=== PATIENT | female | born 1985 | race Caucasian/White ===

== ENCOUNTER 2022-07-04 07:54 | Emergency (ER) | payer MEDICAID, SELFPAY ==
[2022-07-04 07:58] VITALS: BP 132/91; PULSE 116; RESP 17; TEMP 36.2; O2SAT 98; BMI 44.1
[2022-07-04] MEDS: Acetaminophen 325 MG Tablet 650 MG PO (09:06)
[2022-07-04] MEDS: Ondansetron ODT 4 MG Tablet PO (09:07)
[2022-07-04] MEDS: Ibuprofen 600 MG Tablet PO (09:07)
[2022-07-04] MEDS: Amox/Clavulanate 875 MG Tablet PO (10:13)
[2022-07-04] MEDS: dexAMETHasone 10 MG/ML Vial PO.IVFORM (10:13)
--- NOTE | 2022-07-04 10:53 | EDS_ITS ---
HPI History of Present Illness Chief Complaint: Sore Throat Informant: patient Narrative Narrative: Patient is a 37-year-old female with history of fibromyalgia as well as diabetes mellitus (not on insulin) presenting with a couple days of increased fatigue, throat pain, hoarseness and fever. Patient has associated nausea but no vomiting or diarrhea. She denies any sick contacts. She has had a cough with thick sputum that has been nonproductive. She states it started 3 days ago with a sore throat. Has not taken anything for symptoms today. Has no other complaints at this time. Notes that she does have a history of strep throat. Denies any rash or skin changes. Denies any urinary symptoms. 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 Type 2 diabetes mellitus with hyperglycemia Vitamin D deficiency, unspecified Home Medications amoxicillin 875 mg-potassium clavulanate 125 mg tablet 1 tab PO BID #14 tabs 07/04/22 [Rx Last Taken Unknown] bupropion HCl 300 mg 24 hr tablet, extended release (Wellbutrin XL) 300 mg PO DAILY 07/04/22 [History Last Taken Unknown] canagliflozin 300 mg tablet (Invokana) 300 mg PO DAILY 07/04/22 [History Last Taken Unknown] duloxetine 60 mg capsule,delayed release (Cymbalta) 60 mg PO DAILY 07/04/22 [History Last Taken Unknown] ergocalciferol (vitamin D2) 1,250 mcg (50,000 unit) capsule (Vitamin D2) 1,250 mcg PO QWEEK 07/04/22 [History Last Taken Unknown] gabapentin 400 mg capsule 400 mg PO BID 07/04/22 [History Last Taken Unknown] guaifenesin 600 mg tablet, extended release 12 hr (Mucinex) 600 mg PO BID 07/04/22 [History Last Taken Unknown] hydroxyzine HCl 10 mg tablet 10 mg PO TID PRN Anxiety 07/04/22 [History Last Taken Unknown] ibuprofen 600 mg tablet 600 mg PO Q6H PRN PRN fever or pain #20 tabs 07/04/22 [Rx Last Taken Unknown] lisinopril 40 mg tablet 40 mg PO DAILY 07/04/22 [History Last Taken Unknown] metformin 1,000 mg tablet 1,000 mg PO BID 07/04/22 [History Last Taken Unknown] metoprolol succinate 100 mg capsule sprinkle, ext. release 24 hr 100 mg PO DAILY 07/04/22 [History Last Taken Unknown] Allergy/AdvReac Type Severity Reaction Status Date / Time acetaminophen [From Percocet] Allergy Hives Verified 07/04/22 07:57 Dihydroaminopryidine Allergy Rash Verified 07/04/22 07:57 Antibiotics hydrocodone Allergy Hives Verified 07/04/22 07:57 oxycodone [From Percocet] Allergy Hives Verified 07/04/22 07:57 Sulfa (Sulfonamide Allergy Hives Verified 07/04/22 07:57 Antibiotics) sulfamethoxazole Allergy Hives Verified 07/04/22 07:57 [From Bactrim] trimethoprim [From Bactrim] Allergy Hives Verified 07/04/22 07:57 Social History Smoking Status: Never smoker ROS ROS ED Constitutional Constitutional ED: Reports chills and fever(s) Eyes Eyes: Denies change in vision ENT ENT ED: Reports sore throat; Denies ear pain or rhinorrhea Cardiovascular Cardiovascular: Denies chest pain or palpitations Respiratory/Chest Respiratory/Chest: Reports cough; Denies dyspnea or dyspnea on exertion Gastrointestinal Gastrointestinal: Reports nausea; Denies abdominal pain, constipation, diarrhea or vomiting Musculoskeletal Musculoskeletal: Reports myalgias; Denies arthralgias Integumentary Denies rash Neurologic Neurologic: Denies headache(s) or weakness Psychiatric Psychiatric: Denies anxiety EXAM Physical Exam Const Vital Signs: 07/04/22 07:58 Temperature 97.2 F L Temperature Source Temporal Pulse Rate 116 H Respiratory Rate 17 Blood Pressure 132/91 H Blood Pressure Mean 104 Pulse Ox 98 Oxygen Delivery Method Room Air Positive well nourished, well developed and obese General Appearance ED: well developed and NAD Nutritional Appearance: obese HEENT Reports moist mucous membranes HEENT Narrative: Oral pharyngeal injection. Uvula is midline. No tonsillar exudate or significant edema appreciated. Increased pressure with slight retraction of the left panic membrane. No air-fluid levels appreciated on bilateral TMs. No erythema of the bilateral TMs. Eyes PERRL and EOMs intact bilaterally Neck supple and no JVD Neck Narrative: Some mild tender lymphadenopathy of the right anterior superior cervical chain Chest Wall inspection of chest normal Resp normal respiratory effort Resp Narrative: Scattered rhonchi. Breath sounds throughout. No respiratory distress. Cardio regular rate and no murmurs GI normal to inspection, nondistended, normoactive bowel sounds, non-tender and non-distended Extremity normal to inspection Neuro oriented x3 and CN's II-XII intact bilaterally Motor Exam: Negative for general weakness Psych mental status grossly normal Skin no rashes or lesions noted and no wounds MDM MDM MDM Narrative Medical decision making narrative: Patient evaluated for 3 days of sore throat, generalized malaise, myalgias, cough and nausea. Her has some mild hoarseness of her voice. She has had a fever at home but is afebrile here. Patient appears uncomfortable but no acute distress. Differential includes viral syndrome versus strep pharyngitis. Strep swab is positive. Patient is treated with a dose of Decadron after discussion about management of her glucose with steroids. COVID swab is negative. She does have some scattered rhonchi however her breath sounds are equal throughout and I do not suspect pneumonia. Her respiratory rate is normal and her O2 saturations 98% on room air. I do not think a chest x-ray is indicated at this time. Patient given first dose of antibiotics in the emergency room. She is also given ibuprofen and Tylenol for symptom control the emergency room. Discharged home to follow-up with primary care doctor. Counseled on return precautions. She verbalizes agreement understand with this plan. Discharge Plan Triage Chief Complaint: Sore Throat ED Provider: Mague Navarro Dx/Rx/DC Orders Clinical Impression: Acute streptococcal pharyngitis, Laryngitis Instructions: ED Laryngitis, ED Pharyngitis, Strep (Confirmed) Prescriptions: New ibuprofen 600 mg tablet 600 mg PO Q6H PRN PRN (Reason: fever or pain) Qty: 20 0RF amoxicillin-pot clavulanate 875-125 mg tablet 1 tab PO BID Qty: 14 0RF No Action gabapentin 400 mg Capsule 400 mg PO BID metformin 1,000 mg Tablet 1,000 mg PO BID ergocalciferol (vitamin D2) [Vitamin D2] 1,250 mcg (50,000 unit) Capsule 1,250 mcg PO QWEEK hydroxyzine HCl 10 mg Tablet 10 mg PO TID PRN (Reason: Anxiety) lisinopril 40 mg Tablet 40 mg PO DAILY bupropion HCl [Wellbutrin XL] 300 mg Tablet Extended Release 24 Hr 300 mg PO DAILY duloxetine [Cymbalta] 60 mg Capsule,Delayed Release(Dr/Ec) 60 mg PO DAILY Invokana 300 mg Tablet 300 mg PO DAILY guaifenesin [Mucinex] 600 mg Tablet Extended Release 12hr 600 mg PO BID metoprolol succinate 100 mg Capsule,Sprinkle,Er 24hr 100 mg PO DAILY Primary Care Provider: Care Physician,No Primary Referrals: Care Physician,No Primary [Primary Care Provider] - Activity Restrictions/Additional Instructions: Please follow-up with your primary care doctor. Your COVID test was negative. Your strep test was positive. Please keep an eye on your blood sugars as you were given steroids which can increase your blood sugars. Disposition Disposition: Home, Self Care
== END 2022-07-04 11:04 | disposition home or self-care (01) ==
PROVIDERS: Emergency Provider Emergency Medicine; Visit Provider Emergency Medicine
DX: J02.0 Streptococcal pharyngitis (principal); Z68.41 Body mass index [BMI] 40.0-44.9, adult; E11.9 Type 2 diabetes mellitus without complications; J04.0 Acute laryngitis; M79.7 Fibromyalgia; E78.2 Mixed hyperlipidemia; E66.9 Obesity, unspecified; Z79.84 Long term (current) use of oral hypoglycemic drugs; Z79.899 Other long term (current) drug therapy
CPT/HCPCS: 87077; 87811; 87880; 99283

== ENCOUNTER 2023-03-11 12:56 | Emergency (ER) | payer BC, MEDICAID, SELFPAY ==
[2023-03-11 12:57] VITALS: BP 134/78; PULSE 60; RESP 18; TEMP 36.1; O2SAT 100; BMI 41.1
--- NOTE | 2023-03-11 13:13 | EDS_ITS ---
HPI History of Present Illness Chief Complaint: Sore Throat Detail of Chief Complaint: Throat pain, hoarse voice, difficulty swallowing Informant: patient Onset/Context/Timing Onset: Weeks (Onset approxi-1 week ago) Context: Sudden Onset Timing: Continuous Quality: Pain Location: Localizes to the larynx Current Severity: Mild Maximum Severity: Moderate Worsened by: Swallowing and movement of larynx Relieved by: Nothing Associated Symptoms Associated Symptoms: Hoarse voice Narrative Narrative: Patient is a 37-year-old woman with allergy to sulfa. She does have history of type 2 diabetes and hypertension. She states that she has no renal dysfunction. There are no labs for review. There is a prior ER visit that was reviewed as well as outpatient employment H&P. Patient denies fever or chills. She denies difficulty opening or closing her mouth. She does report pain with swallowing liquids and solids. There is no drooling. She does endorse change in voice. She does have a slight cough. The cough is nonproductive. She denies fever. She has had no ill contacts. She states she does not smoke. 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 Type 2 diabetes mellitus with hyperglycemia Vitamin D deficiency, unspecified Home Medications amoxicillin 875 mg-potassium clavulanate 125 mg tablet 1 tab PO BID #14 tabs 07/04/22 [Rx Last Taken Unknown] bupropion HCl 300 mg 24 hr tablet, extended release (Wellbutrin XL) 300 mg PO DAILY 07/04/22 [History Last Taken Unknown] canagliflozin 300 mg tablet (Invokana) 300 mg PO DAILY 07/04/22 [History Last Taken Unknown] duloxetine 60 mg capsule,delayed release (Cymbalta) 60 mg PO DAILY 07/04/22 [History Last Taken Unknown] ergocalciferol (vitamin D2) 1,250 mcg (50,000 unit) capsule (Vitamin D2) 1,250 mcg PO QWEEK 07/04/22 [History Last Taken Unknown] gabapentin 400 mg capsule 400 mg PO BID 07/04/22 [History Last Taken Unknown] guaifenesin 600 mg tablet, extended release 12 hr (Mucinex) 600 mg PO BID 07/04/22 [History Last Taken Unknown] hydroxyzine HCl 10 mg tablet 10 mg PO TID PRN Anxiety 07/04/22 [History Last Taken Unknown] ibuprofen 600 mg tablet 600 mg PO Q6H PRN PRN fever or pain #20 tabs 07/04/22 [Rx Last Taken Unknown] lisinopril 40 mg tablet 40 mg PO DAILY 07/04/22 [History Last Taken Unknown] metformin 1,000 mg tablet 1,000 mg PO BID 07/04/22 [History Last Taken Unknown] metoprolol succinate 100 mg capsule sprinkle, ext. release 24 hr 100 mg PO DAILY 07/04/22 [History Last Taken Unknown] Allergy/AdvReac Type Severity Reaction Status Date / Time acetaminophen [From Percocet] Allergy Hives Verified 03/11/23 12:57 Dihydroaminopryidine Allergy Rash Verified 03/11/23 12:57 Antibiotics hydrocodone Allergy Hives Verified 03/11/23 12:57 oxycodone [From Percocet] Allergy Hives Verified 03/11/23 12:57 Sulfa (Sulfonamide Allergy Hives Verified 03/11/23 12:57 Antibiotics) sulfamethoxazole Allergy Hives Verified 03/11/23 12:57 [From Bactrim] trimethoprim [From Bactrim] Allergy Hives Verified 03/11/23 12:57 Social History (Updated 03/11/23 @ 13:[address] Louie Basurto MD) household members: none Smoking Status: Never smoker substance use type: does not use ROS ROS ED Constitutional Constitutional ED: Denies chills, fever(s), subjective, sweats or weight loss Eyes Eyes: Denies blurry vision, change in vision or diplopia ENT ENT ED: Reports sore throat; Denies ear pain or rhinorrhea Cardiovascular Cardiovascular: Denies chest pain, orthopnea or palpitations Respiratory/Chest Respiratory/Chest: Reports cough; Denies dyspnea, dyspnea on exertion or orthopnea Gastrointestinal Gastrointestinal: Denies abdominal pain, nausea or vomiting Musculoskeletal Musculoskeletal: Denies arthralgias or myalgias Integumentary Denies rash Neurologic Neurologic: Denies headache(s) Hematologic/Lymphatic Hematologic/Lymphatic: Reports systems reviewed and no addt'l complaints, except as documented EXAM Physical Exam Const Vital Signs: 03/11/23 12:57 Temperature 97 F L Temperature Source Temporal Pulse Rate 60 Respiratory Rate 18 Blood Pressure 134/78 H Blood Pressure Mean 96 Pulse Ox 100 Oxygen Delivery Method Room Air Positive well nourished and well developed Constitutional Narrative: Patient has a very hoarse voice. General Appearance ED: well developed and NAD; Negative for cyanotic, diaphoretic or pallor HEENT Reports moist mucous membranes HEENT Narrative: Posterior pharynx is normal. Ears and TMs are normal. Nares patent with no di scharge. Eyes PERRL General Eye ED: Negative for pale conjunctiva or scleral icterus Neck no lymphadenopathy, supple and no JVD Neck Narrative: Patient complained of pain with movement of the larynx. There is no inspiratory expiratory. Resp normal respiratory effort and clear to auscultation bilaterally Cardio regular rate, regular rhythm, S1 normal heart sound, S2 normal heart sound and no murmurs Extremity normal to inspection Neuro oriented x3, CN's II-XII intact bilaterally and no sensory deficits noted Sensorium / Orientation: alert Psych mental status grossly normal Skin no rashes or lesions noted, no wounds and skin turgor normal General Skin Exam: elasticity normal; Negative for jaundice or pallor MDM MDM MDM Narrative Medical decision making narrative: Stafford score is 0; therefore, a rapid strep was not obtained. Because patient complains of pain with movement of the larynx has a hoarse voice and reports pain with swallowing with a benign appearing posterior pharynx obtain soft tissue x-ray of the neck looking for evidence of epiglottitis or retropharyngeal abscess. Doubt the latter since patient does not have any significant neck stiffness or limitation of movement. History & Record Review Additional record(s) reviewed:: Prior outpatient record and Prior ED visit Radiography Chest X-Ray - ED: 2 View and Read by ED Physician (2 view x-ray of the soft tissue neck is interpreted by me as normal at 1353. The epiglottis is normal. The prevertebral space is normal. There is no sublingual tonsillitis noted either.) Treatment and Re-Evaluation :: With patient having slight cough that is nonproductive patient will be treated symptomatically for laryngitis. Since she has no fever and no abnormality x-ray antibiotics were not ordered. Her symptoms have been present for less than a week. And initially she had mild upper respiratory symptoms. Discharge Plan Triage Chief Complaint: Sore Throat ED Provider: Louie Basurto Dx/Rx/DC Orders Clinical Impression: Acute laryngitis Instructions: ED Laryngitis Prescriptions: No Action gabapentin 400 mg Capsule 400 mg PO BID metformin 1,000 mg Tablet 1,000 mg PO BID ergocalciferol (vitamin D2) [Vitamin D2] 1,250 mcg (50,000 unit) Capsule 1,250 mcg PO QWEEK hydroxyzine HCl 10 mg Tablet 10 mg PO TID PRN (Reason: Anxiety) lisinopril 40 mg Tablet 40 mg PO DAILY bupropion HCl [Wellbutrin XL] 300 mg Tablet Extended Release 24 Hr 300 mg PO DAILY duloxetine [Cymbalta] 60 mg Capsule,Delayed Release(Dr/Ec) 60 mg PO DAILY Invokana 300 mg Tablet 300 mg PO DAILY guaifenesin [Mucinex] 600 mg Tablet Extended Release 12hr 600 mg PO BID metoprolol succinate 100 mg Capsule,Sprinkle,Er 24hr 100 mg PO DAILY ibuprofen 600 mg tablet 600 mg PO Q6H PRN PRN (Reason: fever or pain) Qty: 20 0RF amoxicillin-pot clavulanate 875-125 mg tablet 1 tab PO BID Qty: 14 0RF Primary Care Provider: Care Physician,No Primary Referrals: Moshe Mason MD [Med Staff - Recreation Therapy Director] - 1 Week if not improving Care Physician,No Primary [Primary Care Provider] - Activity Restrictions/Additional Instructions: Chloraseptic spray or Cepastat lozenges for throat pain. Your symptoms will improve the last few talk. Disposition Disposition: Home, Self Care
--- NOTE | 2023-03-11 13:20 | RAD_ITS ---
STUDY: X-RAY - SOFT TISSUE NECK REASON FOR EXAM: Female, 37 years old. Anterior neck pain, hoarse voice, difficulty swall TECHNIQUE: 2 view(s) of the neck were obtained. COMPARISON: None. FINDINGS: Normal visualized nasopharynx, oropharynx, hypopharynx. There is mild edema and thickening of the proximal aspect of the epiglottis, likely due to inflammation or infection. There is no demonstrated airway compromise. Normal visualized subglottic tracheal air column. Normal prevertebral soft tissue structures. Normal visualized osseous structures. The soft tissue structures are unremarkable. RAD/Neck for Soft Tissue IMPRESSION: 1. There is mild edema and thickening of the proximal aspect of the epiglottis, likely due to inflammation or infection. There is no demonstrated airway compromise Electronically Signed: Ramon Dominguez MD at 14:27 EDT ,
== END 2023-03-11 14:12 | disposition home or self-care (01) ==
LOC: ED 14:06
PROVIDERS: Emergency Provider Emergency Medicine; Visit Provider Emergency Medicine
DX: J04.0 Acute laryngitis (principal); E11.9 Type 2 diabetes mellitus without complications; I10 Essential (primary) hypertension; Z79.84 Long term (current) use of oral hypoglycemic drugs; Z79.899 Other long term (current) drug therapy
CPT/HCPCS: 70360; 99282

== ENCOUNTER 2023-09-22 06:51 | Emergency (ER) | payer BC, MEDICAID, SELFPAY ==
[2023-09-22 06:53] VITALS: BP 115/87; PULSE 82; RESP 16; TEMP 36.6; O2SAT 98; BMI 37.8
[2023-09-22 08:07] VITALS: BP 109/80; PULSE 68; RESP 18; BMI 29.2
--- NOTE | 2023-09-22 08:21 | EDS_ITS ---
HPI History of Present Illness Chief Complaint: Hypertension Detail of Chief Complaint: High blood pressure readings and panic attack Informant: patient Onset/Context/Timing Onset: Today and Hours Context: Sudden Onset Timing: Intermittent Quality: Systolic pressure between 165 and 175 and chest discomfort with shortness o Location: Mid chest Current Severity: Gone Maximum Severity: Severe Worsened by: Chest pain started after she saw her blood pressure reading. She believes Relieved by: Resolved on its own Associated Symptoms Associated Symptoms: No radiation of the chest discomfort. 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 She does report greater than 100 pound weight loss. She states this morning she did not feel right. She took her blood pressure. First reading was 172 systolic over 95. Second readi ng was 169 systolic. She began to experience chest discomfort and shortness of breath. He did report lightheadedness. She denies history of coronary disease. She does have a history of hypertension. She is present on metoprolol. Many of her meds were discontinued because of her significant weight loss. She denies headache. Visual, ocular auditory symptoms. Denies ringing ears or decreased hearing. Denies trouble with speech or swallowing. She denies paresthesia, anesthesia or motor weakness upper or lower extremities. She denied problems with balance. Patient denies intolerance to greasy or fried foods. Patient denied abdominal pain or back pain. Patient denied urologic symptoms. 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 release 24 hr 100 mg PO DAILY 07/04/22 [History Last Taken Unknown] tirzepatide 12.5 mg/0.5 mL subcutaneous pen injector (Mounjaro) 12.5 mg subcut QWEEK 09/22/23 [History Last Taken Unknown] topiramate 25 mg tablet 50 mg PO DAILY 09/22/23 [History Last Taken Unknown] Allergy/AdvReac Type Severity Reaction Status Date / Time acetaminophen [From Percocet] Allergy Hives Verified 09/22/23 06:57 Dihydroaminopryidine Allergy Rash Verified 09/22/23 06:57 Antibiotics hydrocodone Allergy Hives Verified 09/22/23 06:57 oxycodone [From Percocet] Allergy Hives Verified 09/22/23 06:57 Sulfa (Sulfonamide Allergy Hives Verified 09/22/23 06:57 Antibiotics) sulfamethoxazole Allergy Hives Verified 09/22/23 06:57 [From Bactrim] trimethoprim [From Bactrim] Allergy Hives Verified 09/22/23 06:57 bupropion [From Wellbutrin] AdvReac Intermediate Other Verified 09/22/23 06:57 Social History (Updated 09/22/23 @ 08:[address] Louie Basurto MD) household members: spouse and none Smoking Status: Never smoker substance use type: does not use ROS ROS ED Constitutional Constitutional ED: Reports weight loss; Denies chills, fever(s), subjective or sweats Eyes Eyes: Denies blurry vision, change in vision or diplopia ENT ENT ED: Denies ear pain, rhinorrhea or sore throat Cardiovascular Cardiovascular: Reports chest pain; Denies orthopnea, palpitations, paroxysmal nocturnal dyspnea or racing heartbeat Respiratory/Chest Respiratory/Chest: Reports dyspnea; Denies cough, dyspnea on exertion, orthopnea or paroxysmal nocturnal dyspnea Gastrointestinal Gastrointestinal: Denies abdominal pain, nausea or vomiting Genitourinary Genitourinary ED: Denies dysuria, hematuria or urinary frequency Musculoskeletal Musculoskeletal: Denies arthralgias, back pain, myalgias or neck pain Integumentary Denies rash Neurologic Neurologic: Denies headache(s), paresthesias or weakness Endocrine Endocrinology: Denies cold intolerance or heat intolerance Hematologic/Lymphatic Hematologic/Lymphatic: Reports systems reviewed and no addt'l complaints, except as documented EXAM Physical Exam Const Vital Signs: 09/22/23 06:53 09/22/23 06:58 09/22/23 08:07 Temperature 97.9 F Temperature Source Temporal Pulse Rate 82 68 Respiratory Rate 16 18 Respiratory Effort Normal Respiratory Pattern Normal Blood Pressure 115/87 H 109/80 Blood Pressure Mean 96 89 Pulse Ox 98 Oxygen Delivery Method Room Air Positive well nourished and well developed General Appearance ED: well developed and NAD; Negative for pallor HEENT Reports moist mucous membranes HEENT Narrative: Head is atraumatic and normocephalic. Ears normal. Nares patent. Posterior pharynx is normal. Eyes PERRL and EOMs intact bilaterally Eyes Narrative: There is no nystagmus. General Eye ED: Negative for pale conjunctiva or scleral icterus Neck no lymphadenopathy, supple and no JVD Chest Wall inspection of chest normal and palpation of chest normal Resp normal respiratory effort and clear to auscultation bilaterally Cardio regular rate, regular rhythm, S1 normal heart sound, S2 normal heart sound and no murmurs GI normal to inspection, nondistended, normoactive bowel sounds, non-tender, non- distended and no masses; Negative for hepatosplenomegaly Auscultation: normoactive bowel sounds Palpation: soft Extremity normal to inspection General Extremety ED: Negative for edema or tenderness General Extremity: Negative for edema Neuro oriented x3, CN's II-XII intact bilaterally and no sensory deficits noted Sensorium / Orientation: alert Motor Exam: strength 5/5 throughout Psych Negative for mental status grossly normal Mood & Affect: anxious Skin no rashes or lesions noted, no wounds and skin turgor normal General Skin Exam: Negative for jaundice or pallor MDM MDM MDM Narrative Medical decision making narrative: Patient had elevated blood pressure reading at home. Her blood pressure in the emergency department have been normal. Patient's exam is normal. At approximately 0810 was informed by nurse that she would like a work excuse. Plan was to observe. Since patient remains asymptomatic and blood pressure is normal we will discharge to home. Patient was reassessed at 0830. Patient be discharged home. She has for a note because she was late for work. This was granted. Discharge Plan Triage Chief Complaint: Hypertension ED Provider: Louie Basurto Dx/Rx/DC Orders Clinical Impression: Panic attack, Elevated blood pressure reading with diagnosis of hypertension Instructions: ED Anxiety Reaction, ED Hypertension, Established Prescriptions: No Action metformin 1,000 mg Tablet 1,000 mg PO DAILY duloxetine [Cymbalta] 60 mg Capsule,Delayed Release(Dr/Ec) 60 mg PO DAILY metoprolol succinate 100 mg Capsule,Sprinkle,Er 24hr 100 mg PO DAILY topiramate 25 mg tablet 50 mg PO DAILY Mounjaro 12.5 mg/0.5 mL pen injector 12.5 mg SUBCUT QWEEK Patient Comments: inject 1 dose subcutaneously ONCE A WEEK, mondays Stand Alone Forms: ED Work / School Excuse Primary Care Provider: YESY COON Referrals: YESY COON [Other] - 1-2 Weeks Disposition Disposition: Home, Self Care
== END 2023-09-22 08:48 | disposition home or self-care (01) ==
PROVIDERS: Emergency Provider Emergency Medicine; Visit Provider Emergency Medicine
DX: F41.0 Panic disorder [episodic paroxysmal anxiety] (principal); E11.9 Type 2 diabetes mellitus without complications; I10 Essential (primary) hypertension; Z79.84 Long term (current) use of oral hypoglycemic drugs; Z79.899 Other long term (current) drug therapy
CPT/HCPCS: 99282; A4216

== ENCOUNTER 2024-01-06 22:19 | Emergency (ER) | payer BC, MEDICAID, SELFPAY ==
[2024-01-06 22:19] VITALS: BP 150/104; PULSE 139; RESP 20; TEMP 36.6; O2SAT 93; BMI 37.3
--- NOTE | 2024-01-06 22:29 | CT_ITS ---
STUDY: CT BRAIN WITHOUT CONTRAST REASON FOR EXAM: Female, 38 years old. trauma RADIATION DOSAGE (If Supplied By Facility): CTDIvol = ( 44.99 ) mGy, DLP = ( 762.36 ) mGycm TECHNIQUE: Transaxial CT imaging of the brain was performed without administration of intravenous contrast material. Individualized dose optimization techniques were used for this CT. COMPARISON: No relevant priors. FINDINGS: Normal soft tissue structures. Normal calvarium. Normal size ventricles and extra-axial spaces for the patient''s age. Normal white matter tracts of the cerebral hemispheres. Normal basal ganglia and thalami. Normal brainstem. Normal cerebellum. There is no intracranial hemorrhage. There are no findings of an acute ischemic infarction. Normal visualized paranasal sinuses. CT/Brain/Head without Contrast IMPRESSION: Normal unenhanced CT scan of the brain. Electronically Signed: Madhuri Mcnair MD at 23:56 EST ,
--- NOTE | 2024-01-06 22:29 | CT_ITS ---
STUDY: CT CHEST, ABDOMEN T PELVIS WITH CONTRAST REASON FOR EXAM: Female, 38 years old. trauma RADIATION DOSAGE (If Supplied By Facility): CTDIvol = ( 32.07 ) mGy, DLP = ( 2814.31 ) mGycm TECHNIQUE: Transaxial imaging was performed following intravenous administration of IV 100mL Isovue-370. Multiplanar coronal and sagittal images were reformatted. Individualized dose optimization techniques were used for this CT. COMPARISON: No relevant priors. FINDINGS: CHEST The lungs are normal. There is no demonstrated pleural abnormality. Normal heart and pericardium. Normal mediastinum. Normal hilar regions. Normal unenhanced pulmonary arteries. Normal aorta arch and descending thoracic aorta. Mild spondylosis/degenerative disease of thoracic spine, otherwise no acute fracture or subluxation. There is no demonstrated abnormality of the visualized upper abdomen. ABDOMEN The visualized lung bases are unremarkable. The visualized portions of the heart are within normal limits. Normal liver. The gallbladder is contracted. Normal spleen. Normal pancreas. Normal bilateral adrenal glands. Right upper no pole stone measuring 4.2 mm. Otherwise normal right kidney. Normal left kidney. Normal visualized stomach. Normal small intestine. Normal colon. The appendix is visualized and appears normal. Normal abdominal aorta. Normal inferior vena cava. Normal retroperitoneum. Normal abdominal wall. Mild spondylosis of the lumbar spine. No acute fracture. PELVIS Normal urinary bladder. Normal visualized small intestine. Normal visualized colon. There is no pelvic fluid. There is no pelvic lymphadenopathy or mass lesion. Normal visualized pelvic arteries. Normal abdominal wall. Normal osseous structures. CT/CT Chest, Abd, Pel w/Contrast IMPRESSION: Unremarkable CT chest, abdomen and pelvis with no evidence of intrathoracic or abdominal injury. No pleural effusion or pneumothorax. Right upper renal pole nonobstructive stone measuring 4.2 mm. Remainder bilateral kidneys and abdominal viscera are unremarkable. No acute appendicitis or bowel obstruction. Electronically Signed: Madhuri Mcnair MD at 0:06 EST ,
--- NOTE | 2024-01-06 22:29 | CT_ITS ---
STUDY: CT CERVICAL SPINE WITHOUT CONTRAST REASON FOR EXAM: Female, 38 years old. trauma RADIATION DOSAGE (If Supplied By Facility): CTDIvol = ( 27.39 ) mGy, DLP = ( 607.11 ) mGycm TECHNIQUE: High resolution transaxial imaging was performed without contrast material. Sagittal and coronal images were reconstructed. Individualized dose optimization techniques were used for this CT. COMPARISON: None FINDINGS: Normal craniovertebral junction. There are mild degenerative changes of the anterior atlantoaxial articulation. Normal odontoid process. Normal cervical lordosis. Minor spondylosis at C7-T1. Otherwise normal vertebral bodies of the cervical spine and posterior osseous elements. C2-3: Normal endplates. Normal disc height and morphology. Normal central canal and intervertebral neuroforamina. C3-4: Normal endplates. Normal disc height and morphology. Normal central canal and intervertebral neuroforamina. C4-5: Normal endplates. Normal disc height and morphology. Normal central canal and intervertebral neuroforamina. C5-6: Normal endplates. Normal disc height and morphology. Normal central canal and intervertebral neuroforamina. C6-7: Normal endplates. Normal disc height and morphology. Normal central canal and intervertebral neuroforamina. C7-T1: Normal endplates. Normal disc height and morphology. Normal central canal and intervertebral neuroforamina. Normal visualized soft tissue structures. CT/Spine Cervical without Contras IMPRESSION: Minor spondylosis as described, otherwise no acute fracture or subluxation. Electronically Signed: Madhuri Mcnair MD at 0:02 EST ,
--- NOTE | 2024-01-06 22:31 | EX.ED.GENINJ ---
HPI History of Present Illness Chief Complaint: Fall Informant: patient Onset/Context/Timing Onset: Today Narrative Narrative: Patient presents with a fall down basement steps. About 3 hours ago she states that she fell down 15 steps into her basement. She thinks she felt dizzy and her legs gave out on her. She believes she lost consciousness but is not sure how long she may have been unconscious. She states she members waking up shortly after 8 PM. She presents at 10:30 PM for evaluation. She states that she was able to get up and get to her living room where she is been sitting on the couch for the past 2 hours. She has not taken anything for pain. She complains of head and neck pain along with pain down her spine. She does complain of some pain to the right hip. 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 release 24 hr 100 mg PO DAILY 07/04/22 [History Last Taken Unknown] tirzepatide 12.5 mg/0.5 mL subcutaneous pen injector (Mounjaro) 12.5 mg subcut QWEEK 09/22/23 [History Last Taken Unknown] topiramate 25 mg tablet 50 mg PO DAILY 09/22/23 [History Last Taken Unknown] tramadol 50 mg tablet 50 mg PO Q4H PRN PRN Pain #20 tabs 01/07/24 [Rx Last Taken Unknown] Allergy/AdvReac Type Severity Reaction Status Date / Time acetaminophen [From Percocet] Allergy Hives Verified 01/06/24 22:21 Dihydroaminopryidine Allergy Rash Verified 01/06/24 22:21 Antibiotics hydrocodone Allergy Hives Verified 01/06/24 22:21 oxycodone [From Percocet] Allergy Hives Verified 01/06/24 22:21 Sulfa (Sulfonamide Allergy Hives Verified 01/06/24 22:21 Antibiotics) sulfamethoxazole Allergy Hives Verified 01/06/24 22:21 [From Bactrim] trimethoprim [From Bactrim] Allergy Hives Verified 01/06/24 22:21 bupropion [From Wellbutrin] AdvReac Intermediate Other Verified 01/06/24 22:21 Social History (Updated 01/06/24 @ 22:46 by Breanne East) household members: spouse and none housing: house Smoking Status: Never smoker substance use type: does not use ROS ROS ED Constitutional Constitutional ED: Denies chills or fever(s) Eyes Eyes: Denies change in vision or discharge from eye(s) ENT ENT ED: Denies discharge from eye(s), rhinorrhea or sore throat Cardiovascular Cardiovascular: Denies chest pain or palpitations Respiratory/Chest Respiratory/Chest: Denies cough or dyspnea Gastrointestinal Gastrointestinal: Denies abdominal pain, nausea or vomiting Musculoskeletal Musculoskeletal: Reports back pain, extremity pain and neck pain Integumentary Denies Abrasions or rash Neurologic Neurologic: Reports headache(s); Denies weakness Allergic/Immunologic Allergic/Immunologic ED: Denies lip swelling or urticaria EXAM Physical Exam Const Vital Signs: 01/06/24 22:19 01/06/24 22:45 01/06/24 22:47 Temperature 98 F Temperature Source Temporal Pulse Rate 139 H 89 Respiratory Rate 20 H 13 Respiratory Effort Normal Respiratory Depth Normal Blood Pressure 150/104 H 131/80 H Blood Pressure Mean 119 97 Pulse Ox 93 97 Oxygen Delivery Method Room Air Room Air Positive well nourished and well developed General Appearance ED: well developed HEENT HEENT Narrative: No obvious external sign of trauma. atraumatic Eyes PERRL and EOMs intact bilaterally Neck Neck Narrative: Diffuse C-spine tenderness. No step-offs. Chest Wall inspection of chest normal and palpation of chest normal Resp normal respiratory effort and clear to auscultation bilaterally Cardio regular rhythm Cardio Narrative: Heart rate is 86 at the time of my exam. Rate: regular rate GI non-tender Palpation: soft Extremity Extremity Narrative: Mild tenderness to the lateral aspect of the right hip. Equal leg lengths. Strong distal pulses. Full range of motion of the upper extremities without difficulty. Neuro oriented x3, moves all extremities, no focal motor deficits and no sensory deficits noted Psych mental status grossly normal Skin no rashes or lesions noted MDM MDM MDM Narrative Medical decision making narrative: IV line will be established. Patient will be sent for trauma scans including head, C-spine, chest, abdomen, and pelvis given her mechanism of injury. Labwork obtained to evaluate for leukocytosis, anemia, and electrolyte derangement. History & Record Review Discussion w/independent historian: Patient Lab Data Attestation: I reviewed the patient's lab results. Labs: Laboratory Results - last 24 hr 01/06/24 22:40 WBC 14.0 H RBC 4.85 Hgb 14.5 Hct 44.7 MCV 92.2 MCH 29.9 MCHC 32.4 RDW Std Deviation 43.3 RDW Coeff of Dar 12.7 Plt Count 380 MPV 9.3 Immature Gran % (Auto) 0.400 Neut % (Auto) 68.2 Lymph % (Auto) 23.3 [place] % (Auto) 5.5 Eos % (Auto) 2.1 Baso % (Auto) 0.5 Absolute Neuts (auto) 9.5 H Absolute Lymphs (auto) 3.26 Nucleated RBC % 0 PT 12.6 INR 1.0 APTT 27.0 Sodium 138 Potassium 3.9 Chloride 108 H Carbon Dioxide 27.0 Anion Gap 3 L BUN 19 H Creatinine 1.00 Estim Creat Clear Calc 107.57 Est GFR (MDRD) Af Amer 79 Est GFR (MDRD) Non-Af 65 BUN/Creatinine Ratio 19.0 Glucose 114 H Calcium 9.2 Total Bilirubin 0.40 Direct Bilirubin 0.12 AST 17 ALT 23 Alkaline Phosphatase 71 Total Protein 6.4 Albumin 3.5 Globulin 2.9 Serum , Qual NEGATIVE Radiography Diagnostic Testing: Clinical Impression(s) from Imaging Studies Brain CT 01/06/24 22:29 IMPRESSION: Normal unenhanced CT scan of the brain. Electronically Signed: Madhuri Mcnair MD at 23:56 EST , Cervical Spine CT 01/06/24 22:29 IMPRESSION: Minor spondylosis as described, otherwise no acute fracture or subluxation. Electronically Signed: Madhuri Mcnair MD at 0:02 EST , Chest/Abdomen/Pelvis CT 01/06/24 22:29 IMPRESSION: Unremarkable CT chest, abdomen and pelvis with no evidence of intrathoracic or abdominal injury. No pleural effusion or pneumothorax. Right upper renal pole nonobstructive stone measuring 4.2 mm. Remainder bilateral kidneys and abdominal viscera are unremarkable. No acute appendicitis or bowel obstruction. Electronically Signed: Madhuri Mcnair MD at 0:06 EST , Treatment and Re-Evaluation Narrative: CBC was a white count of 14.0 with normal differential. Hemoglobin 14.5. Coags unremarkable. Chemistry studies unremarkable. LFTs are negative. test negative. CT scan of the head reveals no acute findings. CT the C-spine reveals minor spondylosis but no fracture or subluxation. CT scan of the chest, abdomen, and pelvis reveals no acute injury. There is no pneumothorax. Patient was medicated with tramadol here which she has tolerated well in the past. Test results were discussed with her as well as family at bedside. She be discharged home with a prescription for tramadol and return instructions are given. Discharge Plan Triage Chief Complaint: Fall ED Provider: Marisol Healy Dx/Rx/DC Orders Clinical Impression: Closed head injury, Cervical strain, Fall Instructions: ED Mechanical Fall, ED Head Injury (Adult), ED Neck Sprain or Strain Prescriptions: New tramadol 50 mg tablet 50 mg PO Q4H PRN PRN (Reason: Pain) Qty: 20 0RF No Action metformin 1,000 mg Tablet 1,000 mg PO DAILY duloxetine [Cymbalta] 60 mg Capsule,Delayed Release(Dr/Ec) 60 mg PO DAILY metoprolol succinate 100 mg Capsule,Sprinkle,Er 24hr 100 mg PO DAILY topiramate 25 mg tablet 50 mg PO DAILY Mounjaro 12.5 mg/0.5 mL pen injector 12.5 mg SUBCUT QWEEK Patient Comments: inject 1 dose subcutaneously ONCE A WEEK, mondays Primary Care Provider: YESY COON Referrals: YESY COON [Other] - 1 Week Disposition Disposition: Home, Self Care
[2024-01-06 22:45] VITALS: BP 131/80; PULSE 89; RESP 13; O2SAT 97
[2024-01-06 22:50] LABS: Absolute Lymphocyte Count 3.26 X10^3/uL (0.83-4.51); Absolute Neutrophil Count 9.5 X10^3/uL (2.0-7.7); Basophil# 0.07 X10^3/uL; Basophil% 0.5 % (0-1); Eosinophils% 2.1 % (0-5); Hematocrit 44.7 % (37-47); Hemoglobin 14.5 g/dL (12.0-15.0); Lymphocyte # 3.26 X10^3/ul (0.83-4.51); Lymphocyte % 23.3 % (19-41); Mean Corp Hgb Conc 32.4 g/dL (32-36); Mean Corpuscular Hgb 29.9 pg (27.0-32.0); Mean Corpuscular Volume 92.2 fL (81-99); Mean Platelet Vol. 9.3 fl (6.2-12.0); Monocyte# 0.77 X10^3/uL; Monocyte% 5.5 % (0-10); NRBC Flagged by Analyzer 0 % (0-5); Neutrophil # 9.54 X10^3/uL (2.7-7.7); Neutrophil % 68.2 % (47-70); Platelet Count 380 K/mm3 (150-450); RBC Distribution Width CV 12.7 % (11.6-14.6); RBC Distribution Width SD 43.3 fl (35.1-43.9); Red Blood Count 4.85 M/mm3 (4.2-5.4)
[2024-01-06] MEDS: 0.9% Normal Saline (1000mL) 1,000 ML 150 ML IV (22:50)
[2024-01-06 22:59] LABS: Internal QC Validated? YES +Cl - CLEAR BKGD; Pregnancy, Serum, hCG Quali. NEGATIVE Negative; Prothrombin Time (Protime)PT. 12.6 SECONDS (11.7-14.9)
[2024-01-06 23:07] LABS: AST(SGOT) 17 U/L (15-37); Alanine Aminotransfer ALT/SGPT 23 U/L (13-56); Albumin, Serum 3.5 g/dL (3.2-5.0); Alkaline Phosphatase 71 U/L (45-117); Anion Gap 3 (5-15); BUN 19 mg/dL (7-18); Bilirubin, Direct 0.12 mg/dL (0.00-0.30); Calcium,Total 9.2 mg/dL (8.5-10.1); Chloride 108 mmol/L (98-107); EST Glomerular Filtration Rate 65 mL/min (>60); Est Glom Filt Rate - Afr Amer 79 mL/min (>60); Estimated Creatinine Clearance 107.57 ml/min; Globulin 2.9 g/dL (2.2-4.2); Glucose 114 mg/dL (74-106); Potassium 3.9 mmol/L (3.5-5.1); Protein, Total 6.4 g/dL (6.4-8.2); Sodium Level 138 mmol/L (136-145)
[2024-01-06] MEDS: traMADol 50 MG Tablet PO (23:22)
--- OUTSIDE RECORDS SUMMARY | 2024-01-06 23:39 | XMS RPT_ITS | CCD ---
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 Name Role Phone LEISA ROPRE~[id number] JUDSON Attending Unavail able LEISA ROPER~[id number] JUDSON Primary Care Unavail able LEISA ROPER~[id number] JUDSON Attending Unavail able LEISA ROPER~[id number] JUDSON Primary Care Unavail able Unavailable Primary Care Provider Unavailabl e Immanule Morin MD Primary Care Provider [phone] King SALBADOR Yesy Unavailable Jim DO, Yesy Unavailable IMMANUEL MORIN Referring Unavailable IMMANUEL MORIN Primary Care Unavailable Jim DO Yesy Unavailable Jim DO, Yesy Unavailable Immanuel Morin MD Primary Care Provider Jim DO, Yesy Unavailable Jim DO, Yesy Unavailable José Bernard MD Primary Care Provider Immanuel Morin MD Primary Care Provider [phone] Ms. Liyah Kwok Attending Unavail able Jim DO, Yesy Unavailable Required, No Pcp Unavailable Unavailable Inder Menard Unavailable System, Provider Not In Primary Care Provider Un available Yesy Fernandez DO Primary Care Provider YESY FERNANDEZ Primary Care Unavailable SANJAY POLLARD Attending Unavailable SYSTEM, PROVIDER NOT IN Primary Care Unavaila SARA SolorzanoTA Attending Unavailable IMMANUEL MORIN Primary Care Unavailable IMMANUEL MORIN Referring Unavailable DIWAKAR, FELA Referring Unavailable IMMANUEL MORIN Primary Care Unavailable DIWAKAR, FELA Attending Unavailable IMMANUEL MORIN Primary Care Unavailable IMMANUEL MORIN Referring Unavailable LOTFIAN, TED-ALI Referring Unavailable DIWAKAR, FELA Attending Unavailable LOTFIAN, TED-ALI Primary Care Unavailable LOTFIAN, TED-ALI Referring Unavailable LOTFIAN, TED-ALI Primary Care Unavailable DIWAKAR, FELA Attending Unavailable DIWAKAR, FELA Referring Unavailable LOTFIAN, TED-ALI Primary Care Unavailable DIWAKAR, FELA Attending Unavailable LOTFIAN, TED-ALI Primary Care Unavailable PATRICIA DIAL Attending Unavailable LOTFIAN, TED-ALI Primary Care Unavailable LOTFIAN, TED-ALI Primary Care Unavailable LOTFIAN, TED-ALI Referring Unavailable DIWAKAR, FELA Attending Unavailable Allergies Allergy Classification Reported Allergen(s) Allergy Type Date of Onset Reaction(s) Facility (20 sources) HYDROcodone; Translations: [Unknown] Drug Allergy 2 Hives, Rash [facility] Repository (20 sources) Acetaminophen / oxyCODONE; Translations: [OXYCODONE-ACETAMINO PHEN] Drug Allergy 2 Diarrhea, Rash, Vomiting [facility] (20 sources) Sulfamethoxazole / Trimethoprim; Translations: [SULFAMETHOXAZOLE-TR IMETHOPRIM] Drug Allergy 2 Diarrhea, Itching, Rash [facility] (20 sources) Sulfonamides (Antibiotic); Translations: [SULFA (SULFONAMIDE ANTIBIOTICS)] Drug Allergy 2 Diarrhea, Rash [facility] (20 sources) Trimethoprim and derivatives; Translations: [DIHYDROAMINOPRYIDIN E ANTIBIOTICS] Drug Allergy 2 Diarrhea, Hives, Itching, Rash [facility] (20 sources) liraglutide; Translations: [LIRAGLUTIDE] Drug Allergy 3 Rash [facility] (14 sources) buPROPion; Translations: [BUPROPION] Drug Allergy 3 Intolerance [facility] Work Phone: (1 source) Acetaminophen / oxyCODONE Drug Allergy Hives [facility] (1 source) Sulfamethoxazole / Trimethoprim Drug Allergy [facility] (2 sources) Azithromycin Drug Allergy 3 [facility] Medications Current Medications Medication Drug Class(es) Dates Sig (Normalized) Sig (Original) [id number] 200 actuat albuterol 0.09 mg/actuat metered dose inhaler (1 source) beta2-Adrenergi c Agonist Start: 11-08-2023 take 2 puff(s) by inhalation every four hours as needed for wheezing Albuterol 108 (90 Base) MCG/ACT Aero Soln inhaler Inhale 2 puffs every 4 hours as needed for Wheezing. 18 g 0 11/08/2023 Active cyclobenzaprine hydrochloride 10 mg oral tablet (20 sources) Muscle Relaxant Start: 01-11-2023 End: 02-10-2023 take 1 tablet by mouth twice daily as needed cyclobenzaprine (FLEXERIL) 10 mg tablet Indications: Strain of lumbar region, initial encounter Take 1 tablet by mouth twice daily as needed. 60 tablet 0 01/11/2023 02/10/2023 Active Completed/Discontinued Medications Medication Drug Class(es) Dates Sig (Normalized) Sig (Original) albuterol 0.833 mg/ml / ipratropium bromide 0.167 mg/ml inhalation solution (1 source) Anticholinergic, beta2-Adrenergic Agonist Start: 11-08-2023 End: 11-08-2023 Ipratropium-albute rol (DUONEB) 0.5-2.5 (3) MG/3ML nebulizer solution 3 mL 24 hr buPROPion hydrochloride 300 mg extended release oral tablet (20 sources) Aminoketone Start: 10-14-2022 End: 03-17-2023 take 1 tablet by mouth once daily buPROPion XL (WELLBUTRIN XL) 300 mg 24 hr tablet Indications: Anxiety Take 1 tablet by mouth once daily. 30 tablet 0 02/02/2023 03/17/2023 Discontinued (Discontinued by Patient) Problems Active Problems Problem Classification Problem Date Documented Da te Episodic/Chronic Anxiety disorders (20 sources) Anxiety; Translations: [Anxiety disorder, unspecified] Onset: 07-20-2023 Chronic Diabetes mellitus with complications (20 sources) Type II diabetes mellitus uncontrolled; Translations: [Type 2 diabetes mellitus with hyperglycemia] Onset: 01-10-2023 Chronic Diabetes mellitus without complication (20 sources) Type 2 diabetes mellitus without complication; Translations: [Type 2 diabetes mellitus without complications] Onset: 10-13-2023 Chronic Disorders of lipid metabolism (1 source) Hyperlipidemia; Translations: [Hyperlipidemia, unspecified] Chronic Essential hypertension (20 sources) Essential hypertension; Translations: [Essential (primary) hypertension] Onset: 01-10-2023 Chronic Headache; including migraine (1 source) Migraine without aura, not refractory ; Translations: [Chronic migraine without aura, not intractable, without status migrainosus] Chronic Malaise and fatigue (2 sources) Fatigue; Translations: [Chronic fatigue, unspecified] Onset: 08-19-2022 Chronic Mood disorders (4 sources) Recurrent major depression; Translations: [Major depressive disorder, recurrent, unspecified] Onset: 07-20-2023 Chronic Nutritional deficiencies (20 sources) Vitamin D deficiency; Translations: [Vitamin D deficiency, unspecified] Onset: 01-10-2023 Chronic Other connective tissue disease (10 sources) Fibromyalgia; Translations: [Fibromyalgia] Episodic Other nutritional; endocrine; and metabolic disorders (20 sources) Severe obesity; Translations: [Morbid (severe) obesity due to excess calories] Onset: 01-10-2023 Chronic Other nutritional; endocrine; and metabolic disorders (20 sources) Body mass index 40+ - severely obese; Translations: [Body mass index (BMI) 40.0-44.9, adult] Onset: 01-10-2023 Chronic Other nutritional; endocrine; and metabolic disorders (12 sources) Obese class II; Translations: [Obesity, unspecified] Onset: 07-20-2023 07-20-2023 Chronic Other nutritional; endocrine; and metabolic disorders (1 source) Obesity, unspecified; Translations: [Obesity, Class II, BMI 35-39.9] Onset: 07-20-2023 Chronic Other nutritional; endocrine; and metabolic disorders (1 source) Morbid (severe) obesity due to excess calories; Translations: [Class 3 severe obesity with serious comorbidity in adult, unspecified BMI, unspecified obesity type (HCC)] Onset: 01-10-2023 Chronic Other nutritional; endocrine; and metabolic disorders (1 source) Body mass index (BMI) 40.0-44.9, adult; Translations: [Body mass index 40.0-44.9, adult ([facility])] Onset: 01-10-2023 Chronic Other screening for suspected conditions (not mental disorders or infectious disease) (2 sources) Cancer cervix screening status; Translations: [Encounter for screening for malignant neoplasm of cervix] Episodic Other upper respiratory infections (3 sources) Upper respiratory infection; Translations: [Acute upper respiratory infection, unspecified] Onset: 10-06-2023 10-06-2023 Episodic Residual codes; unclassified (1 source) Obstructive sleep apnea syndrome; Translations: [Obstructive sleep apnea (adult) (pediatric)] Chronic Sprains and strains (9 sources) Low back strain; Translations: [Strain of muscle, fascia and tendon of lower back, initial encounter] Episodic Unclassified (2 sources) EYE INJURY 08-11-2023 Past or Other Problems Problem Classification Problem Date Documented Da te Episodic/Chronic Administrative/social admission (20 sources) Patient encounter status; Translations: [Dietary counseling and surveillance] Onset: 01-10-2023 Episodic Results Test Name Value Interpretation Reference Range Facil ity Vital Signs Date Time Vital Sign Value Performing Clinician Facility 01-05-2024 08:09-0500 Body height 181.6 cm Fela Gan MD Work Phone: [facility] 01-05-2024 08:09-0500 Body weight 117.94 kg Fela Gan MD Work Phone: [facility] 11-08-2023 15:01-0500 Diastolic blood pressure 90 mm[Hg] Sanjay Pollard MD Work Phone: [facility] 11-08-2023 15:01-0500 Heart rate 83 /min Sanjay Pollard MD Work Phone: [facility] 11-08-2023 15:01-0500 Respiratory rate 18 /min Sanjay Pollard MD Work Phone: [facility] 11-08-2023 15:01-0500 SaO2% (BldA) [Mass fraction] 98 % Sanjay Pollard MD Work Phone: [facility] 11-08-2023 15:01-0500 Systolic blood pressure 139 mm[Hg] Sanjay Pollard MD Work Phone: [facility] 11-08-2023 10:33-0500 Body height 180.3 cm Sanjay Pollard MD Work Phone: [facility] 11-08-2023 10:33-0500 Body mass index (BMI) [Ratio] 36.12 kg/m2 Sanjay Pollard MD Work Phone: [facility] 11-08-2023 10:33-0500 Body weight 117.48 kg Sanjay Pollard MD Work Phone: [facility] 11-08-2023 10:32-0500 Body temperature 97.39 [degF] Sanjay Pollard MD Work Phone: [facility] 10-13-2023 11:16-0500 Body height 181.6 cm Fela Gan MD Work Phone: [facility] 10-13-2023 11:16-0500 Body weight 119.75 kg Fela Gan MD Work Phone: [facility] 10-06-2023 23:07-0500 Diastolic blood pressure 71 mm[Hg] [facility] 10-06-2023 23:07-0500 Heart rate 86 /min [facility] 10-06-2023 23:07-0500 Respiratory rate 16 /min [facility] 10-06-2023 23:07-0500 SaO2% (BldA) [Mass fraction] 97 % [facility] 10-06-2023 23:07-0500 Systolic blood pressure 132 mm[Hg] [facility] 10-06-2023 21:36-0500 Body height 180.3 cm [facility] 10-06-2023 21:36-0500 Body mass index (BMI) [Ratio] 33.33 kg/m2 [facility] 10-06-2023 21:36-0500 Body weight 108.41 kg [facility] 10-06-2023 21:35-0500 Body temperature 98.29 [degF] [facility] 08-11-2023 13:52-0400 Body temperature 98.06 [degF] No Pcp Required [facility] 08-11-2023 13:52-0400 Diastolic blood pressure 86 mm[Hg] No Pcp Required [facility] 08-11-2023 13:52-0400 Heart rate 80 /min No Pcp Required [facility] 08-11-2023 13:52-0400 Respiratory rate 16 /min No Pcp Required [facility] 08-11-2023 13:52-0400 SaO2% (BldA) [Mass fraction] 96 % No Pcp Required [facility] 08-11-2023 13:52-0400 Systolic blood pressure 128 mm[Hg] No Pcp Required [facility] 07-20-2023 15:22-0400 Body height 180.3 cm Patricia Shuffstall DO Work Phone: [facility] 07-20-2023 15:22-0400 Body temperature 97.59 [degF] Patricia Shuffstall DO Work Phone: [facility] 07-20-2023 15:22-0400 Body weight 121.56 kg Patricia Shuffstall DO Work Phone: [facility] 07-20-2023 15:22-0400 Diastolic blood pressure 75 mm[Hg] Patrciia Shuffstall DO Work Phone: [facility] 07-20-2023 15:22-0400 Heart rate 83 /min Patricia Shuffstall DO Work Phone: [facility] 07-20-2023 15:22-0400 Respiratory rate 18 /min Patricia Shuffstall DO Work Phone: [facility] 07-20-2023 15:22-0400 SaO2% (BldA) [Mass fraction] 99 % Patricia Shuffstall DO Work Phone: [facility] 07-20-2023 15:22-0400 Systolic blood pressure 110 mm[Hg] Patricia Shuffstall DO Work Phone: [facility] 07-06-2023 11:29-0400 Body height 182.9 cm Fela Gan MD Work Phone: [facility] 07-06-2023 11:29-0400 Body weight 119.75 kg Fela Gan MD Work Phone: [facility] 03-17-2023 08:45-0400 Body height 182.9 cm Fela Gan MD Work Phone: [facility] 03-17-2023 08:45-0400 Body weight 135.63 kg Fela Gan MD Work Phone: [facility] 01-10-2023 08:05-0500 Body height 182.9 cm Fela Gan MD Work Phone: [facility] 01-10-2023 08:05-0500 Body weight 148.24 kg Fela Gan MD Work Phone: [facility] 01-10-2023 08:05-0500 Diastolic blood pressure 82 mm[Hg] Fela Gan MD Work Phone: [facility] 01-10-2023 08:05-0500 Heart rate 92 /min Fela Gan MD Work Phone: [facility] 01-10-2023 08:05-0500 Systolic blood pressure 124 mm[Hg] Fela Gan MD Work Phone: [facility] 09-28-2022 10:28-0400 Body height 182.9 cm Yesy Jim DO Work Phone: [facility] 09-28-2022 10:28-0400 Body temperature 97.59 [degF] Yesy Jim DO Work Phone: [facility] 09-28-2022 10:28-0400 Body weight 147.87 kg Yesy Jim DO Work Phone: [facility] 09-28-2022 10:28-0400 Diastolic blood pressure 94 mm[Hg] Yesy Jim DO Work Phone: [facility] 09-28-2022 10:28-0400 Heart rate 90 /min Yesy Jim DO Work Phone: [facility] 09-28-2022 10:28-0400 Respiratory rate 19 /min Yesy Jim DO Work Phone: [facility] 09-28-2022 10:28-0400 SaO2% (BldA) [Mass fraction] 97 % Yesy Jim DO Work Phone: [facility] 09-28-2022 10:28-0400 Systolic blood pressure 138 mm[Hg] Yesy Jim DO Work Phone: [facility] 07-18-2022 11:17-0400 Body height 182.9 cm Yesy Jim DO Work Phone: [facility] 07-18-2022 11:17-0400 Body temperature 97.9 [degF] Yesy Jim DO Work Phone: [facility] 07-18-2022 11:17-0400 Body weight 148.78 kg Yesy Jim DO Work Phone: [facility] 07-18-2022 11:17-0400 Diastolic blood pressure 76 mm[Hg] Yesy Jim DO Work Phone: [facility] 07-18-2022 11:17-0400 Heart rate 87 /min Yesy Jim DO Work Phone: [facility] 07-18-2022 11:17-0400 Respiratory rate 18 /min Yesy Jim DO Work Phone: [facility] 07-18-2022 11:17-0400 SaO2% (BldA) [Mass fraction] 97 % Yesy Jim DO Work Phone: [facility] 07-18-2022 11:17-0400 Systolic blood pressure 120 mm[Hg] Yesy Jim DO Work Phone: [facility] Encounters Encounter Date Encounter Type Care Provider Facility Start: 01-05-2024 End: 01-05-2024 ambulatory JOSÉ BERNARD Facility:[facility] Start: 01-05-2024 End: 01-05-2024 ambulatory Fela Gan MD Work Phone: [facility] Procedures Date Procedure Procedure Detail Performing Clinician Start: 11-08-2023 Radiologic exam ches t single view Sanjay Pollard MD Work Phone: Start: 11-08-2023 Complete blood count with white cell differential, automated Sanjay Pollard MD Work Phone: Start: 11-08-2023 End: 11-08-2023 Comprehensive metabolic panel Sanjay Pollard MD Work Phone: Start: 11-08-2023 Iadna nos amplified probe tq each organism Sanjay Pollard MD Work Phone: Start: 11-08-2023 Quantitative PCR analysis Sanjay Pollard MD Work Phone: Start: 10-06-2023 Iaadiadoo streptococ cus group a Judy Jenkins PA-C Work Phone: Start: 10-06-2023 Quantitative PCR analysis Judy Jenkins PA-C Work Phone: Start: 07-18-2022 Hemoglobin A1c/Hemoglobin.total in Blood Yesy Fernandez DO Work Phone: Start: 07-18-2022 Adult depression scr eening assessment Yesy Fernandez DO Work Phone: Plan of Treatment Date Care Activity Detail Author Start: 07-20-2024 ANNUAL PCP TEAM COMMANDING OFFICER HOMICIDE SQUAD DEMETRIUS DISEASE VISIT ANNUAL PCP TEAM CHRONIC DISEASE VISIT [facility] Start: 07-20-2024 BP CONTROLLED (<130/80) BP CONTROLLE D (<130/80) [facility] Start: 01-24-2024 Hemoglobin A1c measurement HbA1C [facility] Start: 01-24-2024 Hemoglobin A1c/Hemoglobin.total in Blood HBA1C [facility] Start: 01-05-2024 End: 04-05-2024 25-hydroxyvitamin D3 [Mass/volume] in Serum or Plasma VITAMIN D 25 HYDROXY Lab Routine Type 2 diabetes mellitus without complication, without long-term current use of insulin ([facility]) Vitamin D deficiency Class 3 severe obesity with serious comorbidity in adult, unspecified BMI, unspecified obesity type (HCC) Expected: 01/05/2024, Expires: 04/05/2024 [facility] Work Phone: Payers Date Payer Category Payer Unknown [id number] 2022 Private Health Insurance [id number] 2022 Unknown [id number] 2022 Unknown [id number] 2022 Medicaid MEDICAID [facility] MEDICAID [id number] 2022-Present [phone] [address] [place] [address] Medicaid [id number] 2022 Medicaid [id number] 1985 Unknown [id number] 1983 Unknown [id number] 1983 Unknown [id number] Medicaid [id number] Social History Date Type Detail Facility Tobacco smoking stat [facility] Tobacco smoking consumption unknown [facility] Start: 1985 Sex Assigned At Not on file [facility] Start: 06-25-2022 End: 09-28-2022 Exposure to SARS-CoV-2 (event) Not sure [facility] Start: 07-18-2022 End: 01-10-2023 Tobacco smoking status NHIS Ex-smoker [facility] End: 11-27-2012 History of tobacco use Current smoker [facility] End: 11-27-2012 History of tobacco use Cigarette Smoker [facility] Start: 07-18-2022 End: 01-10-2023 Tobacco use and exposure Smokeless tobacco non-user [facility] Start: 1985 Sex Assigned At Female [facility] Start: 01-10-2023 End: 01-05-2024 Alcohol intake Ex-drinker (finding) [facility] Start: 03-17-2023 End: 06-22-2023 History of Social function [facility] Work Phone: Start: 03-17-2023 End: 06-22-2023 Tobacco use panel [facility] Work Phone: Adult Depression Screening Assessment 0 [facility] Work Phone: Start: 07-16-2022 Gender identity Identifies as female gender (finding) [facility] Start: 07-16-2022 Sexual orientation Heterosexual (fin ding) [facility] Start: 10-06-2023 Tobacco smoking stat us NHIS Never smoked tobacco [facility] Start: 10-06-2023 End: 11-08-2023 Alcohol intake Lifetime non-drinker (finding) [facility] NEGATED: Highlighted rowStart: NINF History of tobacco use Passive smoker [facility] em Clinical Notes 07-05-2022 to 01-05-2024 Fela Gan MD - 01/05/2024 8:23 AM Brian Pulido RN - 11/08/2023 2:13 PM Brian Pulido RN - 11/08/2023 2:13 PM Alethea Pollard MD - 11/08/2023 12:04 PM ESTPatient Instructions Note Date & Type Note Facility 01-05-2024 Note HNO ID: [id number] Author: FELA GAN MD Service: ? Author Type: Physician Type: Progress Notes Filed: 01/05/2024 08:58 Note Text: Fela Gan MD [facility] [address] [place] [address], [place] [address] [facility] - Fourth Floor [place] [address] This Team Access Model visit is a virtual visit. It required patient-provider interaction for the medical decision making as documented below. Consent was obtained to complete today's [facility] visit. I have communicated my name and active licensure. The patient's identity and physical location were verified at the time of this visit. Either the patient or their legal title insurance sales representative has been informed of the risks and benefits of -- and alternatives to -- treatment through a remote evaluation and consents to proceed with the evaluation remotely. Cindy Wright is a 37 year old female with has a past medical history of Anxiety and Hypertension. She has no past medical history of Scoliosis. here today for a follow up on her weight loss efforts. She is currently taking the prescription weight loss medication Metformin, Mounjaro, off label, and Topiramate, off label Concerns: Stress has subsided -- back pain for past 1 months no radiation :so unable to exercise much Regarding weight loss she is happy with this journey. She feels more energetic she is making much better choices with her lifestyle. Hunger and craving well controlled Struggling with constipation: tried magnesium citrate but doing better /regular She is continuing with diet changes: yes -Main focus of dietary changes: more consistent /has been trying to add more fibers and protein with each meals. She is continuing with exercise changes: yes -Exercise routine: more walking But not exercising due to back pain Goal weight:200/180 Review of weight loss medication side effects Any GI upset? no Changes to blood pressure? no Visual Changes: no -- Patient reports suppression of her appetite and increase in satiety since starting the medication Diet: Breakfast slim fast or eggs /yoghurt Omelette with veggies Snacks:denies Lunch fast /skips oatmeal /cabbage Dinner grilled veggies and protein / grilled chicken wrap snacks denies Satiety and Satiation improved Cravings well controlled Sleep: Good/7 hors Stress: Coping well Smoking/Alcohol -denies Exercise Freq: Barriers: Work-related activity: Sedentary Review of Systems Constitutional: Negative for malaise/fatigue. HENT: Negative for congestion and tinnitus. Eyes: Negative for blurred vision. Respiratory: Negative for shortness of breath. Cardiovascular: Negative for palpitations, orthopnea and leg swelling. Gastrointestinal: Negative for heartburn, nausea and vomiting. Genitourinary: Negative for dysuria and frequency. Musculoskeletal: Positive for back pain. Neurological: Negative for weakness. Psychiatric/Behavioral: The patient does not have insomnia. VITALS: Ht 181.6 cm (5' 11.5 ) Wt 117.9 kg (260 lb) LMP 10/16/2018 (Approximate) BMI 35.76 kg/m? , Body mass index is 35.76 kg/m?. Physical Exam Constitutional:. --no issues with communication HEENT: Normocephalic and atraumatic. Eyes: Conjunctiva appear normal. No scleral icterus. Hearing: Is grossly intact. Neck: Range of motion appears normal. Thyroid: appears symmetric and not enlarged. Pulmonary/Chest: Effort normal. Psychiatric: Mood, memory, affect and judgment normal. Neurological: alert and oriented to person, place, and time. Impression and Plan: ASSESSMENT/PLAN: 1. Class 3 severe obesity with serious comorbidity in adult, unspecified BMI, unspecified obesity type (HCC) - ICD9: 278.01, ICD10: E66.01 (primary diagnosis) Weight decreasing - Behavioral and pharmacological intervention --Has responded very well to Mounjaro her cravings and hunger are well controlled on current medication with combination of Mounjaro/topiramate and metformin. -- Last A1c done in December was 8.2 down to 5.8 Topamax is also help to come off of gabapentin Cravings and hunger much better controlled on 15 mg Mounjaro currently tolerating medication -Constipation has resolved. Aelna is not eating 3 meals but I recommended her to head at least protein and fiber goal. If needed we may have to decrease the dose. Patient states that she will add protein shakes and yogurt Strongly recommend to increase hydration to at least 60 ounces as well as hitting protein goal of 80 g daily. 2. Dietary counseling and surveillance - ICD9: V65.3, ICD10: Z71.3 Reviewed principles of energy metabolism, caloric intake and expenditure, and rationale for treatment program. Also reinforced need for reduced calorie, low fat diet and increased physical activity. 3. Type 2 diabetes without any complications A1c down to 5.8 reviewed labs - Continue current medications - (more content not included)... [facility] 01-05-2024 History of Presen t illness Narrative Images from the original note were not included. Fela Gan MD [facility] [address] [place] [address], [address] [facility] - Fourth Floor [place] [address] This Team Access Model visit is a virtual visit. It required patient-provider interaction for the medical decision making as documented below. Consent was obtained to complete today's distance health visit. I have communicated my name and active licensure. The patient's identity and physical location were verified at the time of this visit. Either the patient or their legal title insurance sales representative has been informed of the risks and benefits of -- and alternatives to -- treatment through a remote evaluation and consents to proceed with the evaluation remotely. Cindy Wright is a 37 year old female with has a past medical history of Anxiety and Hypertension. She has no past medical history of Scoliosis. here today for a follow up on her weight loss efforts. She is currently taking the prescription weight loss medication Metformin, Mounjaro, off label, and Topiramate, off label Concerns: Stress has subsided -- back pain for past 1 months no radiation :so unable to exercise much Regarding weight loss she is happy with this journey. She feels more energetic she is making much better choices with her lifestyle. Hunger and craving well controlled Struggling with constipation: tried magnesium citrate but doing better /regular She is continuing with diet changes: yes -Main focus of dietary changes: more consistent /has been trying to add more fibers and protein with each meals. She is continuing with exercise changes: yes -Exercise routine: more walking But not exercising due to back pain Goal weight:200/180 Review of weight loss medication side effects Any GI upset? no Changes to blood pressure? no Visual Changes: no -- Patient reports suppression of her appetite and increase in satiety since starting the medication Diet: Breakfast slim fast or eggs /yoghurt Omelette with veggies Snacks:denies Lunch fast /skips oatmeal /cabbage Dinner grilled veggies and protein / grilled chicken wrap snacks denies Satiety and Satiation improved Cravings well controlled Sleep: Good/7 hors Stress: Coping well Smoking/Alcohol -denies Exercise Freq: Barriers: Work-related activity: Sedentary Review of Systems Constitutional: Negative for malaise/fatigue. HENT: Negative for congestion and tinnitus. Eyes: Negative for blurred vision. Respiratory: Negative for shortness of breath. Cardiovascular: Negative for palpitations, orthopnea and leg swelling. Gastrointestinal: Negative for heartburn, nausea and vomiting. Genitourinary: Negative for dysuria and frequency. Musculoskeletal: Positive for back pain. Neurological: Negative for weakness. Psychiatric/Behavioral: The patient does not have insomnia. VITALS: Ht 181.6 cm (5' 11.5 ) Wt 117.9 kg (260 lb) LMP 10/16/2018 (Approximate) BMI 35.76 kg/m , Body mass index is 35.76 kg/m . Physical Exam Constitutional:. --no issues with communication HEENT: Normocephalic and atraumatic. Eyes: Conjunctiva appear normal. No scleral icterus. Hearing: Is grossly intact. Neck: Range of motion appears normal. Thyroid: appears symmetric and not enlarged. Pulmonary/Chest: Effort normal. Psychiatric: Mood, memory, affect and judgment normal. Neurological: alert and oriented to person, place, and time. Impression and Plan: ASSESSMENT/PLAN: 1. Class 3 severe obesity with serious comorbidity in adult, unspecified BMI, unspecified obesity type (HCC) - ICD9: 278.01, ICD10: E66.01 (primary diagnosis) Weight decreasing - Behavioral and pharmacological intervention --Has responded very well to Mounjaro her cravings and hunger are well controlled on current medication with combination of Mounjaro/topiramate and metformin. -- Last A1c done in December was 8.2 down to 5.8 Topamax is also help to come off of gabapentin Cravings and hunger much better controlled on 15 mg Mounjaro currently tolerating medication -Constipation has resolved. Alena is not eating 3 meals but I recommended her to head at least protein and fiber goal. If needed we may have to decrease the dose. Patient states that she will add protein shakes and yogurt Strongly recommend to increase hydration to at least 60 ounces as well as hitting protein goal of 80 g daily. 2. Dietary counseling and surveillance - ICD9: V65.3, ICD10: Z71.3 Reviewed principles of energy metabolism, caloric intake and expenditure, and rationale for treatment program. Also reinforced need for reduced calorie, low fat diet and increased physical activity. 3. Type 2 diabetes without any complications A1c down to 5.8 reviewed labs - Continue current medications -Remains on Mounjaro Repeat labs. 4. Body mass index 40.0-44.9, adult (HCC) - ICD9: V85.41, ICD10: Z68.41 Weight decreasing - Behavioral and pharmacological intervention - 5. Vitamin D deficiency - ICD9: 268.9, ICD10: E55.9 Continue supplements. 6. Primary hypertension - ICD9: 401.9, ICD10: I10 - good control - Encouraged dietary sodium restriction/DASH diet - Recommended regular aerobic exercise. - Recommend home blood pressure monitoring, to bring results in on next visit - Goal of BP <130/80 Fela Gan MD She is doing well otherwise, continues lifestyle modification. She remains motivated to lose weight. Reviewed principles of energy metabolism, caloric intake and expenditure, and rationale for treatment program. Also reinforced need for reduced calorie, low fat diet and increased physical activity. Fela Gna MD Some elements were copied from my last note, which have been updated where appropriate, and all reflect current medical decision making from TODAY Counseling Visit 20 minutes for preventive counseling/IBT : including reviewing chart and finishing my notes Screening for obesity completed during initial plan of care. Patient was competent and alert at the time that counseling was provided. 5a's reviewed: Assess- I assessed behavioral health risk/factors affecting --- Asked about/assess behavioral health risk(s) and factors affecting choice of behavior change goals -Insulin resistance much improved -- Back pain so has not been able to exercise. May not be hitting protein goal discussed again in length regarding protein and fibers. -- Patient agrees with the plan and verbalizes understanding. Recommended continuing with at least 70 g of protein daily as well as 70 ounces of water continue with strength training. Constipation Advise: clear, specific, personalized behavior change advice. -I gave very clear, specific, and personalized behavior change adviced, including information about personal health harms and benefits. Recommended add 60 to 70 ounces of plain water or lemon water Advised to get at least 60-80 g of protein daily. Next Agree: Agree: Patient agrees with selected appropriate treatment goals and methods to change behavior Assist:provided IBT w self-help, handouts, teaching skills and support Using behavior change techniques with self-help and Counseling in achieving Goals. Also discussed supplementing with adjunctive medical treatments when appropriate. Arrange- follow up scheduled, Handouts given to patient My opinion -- 3 hour Rule -last meal /snack 3 hours before sleeping ,try to be done by 7 pm --eat Rich Breakfast - At Least 3 hours break between each meals ,except water --sleep 7 hours at night , that means going to bed early -- drink only water ( no soda or juices) /no Alcohol consumption --cut down on coffee consumption if consuming high amounts Website :You can visit to web site for low carb recipe information as well as visual guide to low carb food: [employer] Limit carb consumption to 80- 100 grams per day. Goals: formal exercise 2-5 x/week as tolerated, start with 10 mins/day to goal of 30 minutes Have 3 meals a day-protein source with each meal (structured meal planning) Food journal daily and bring it to all appointments -- IN GENERAL - suggestions based on important of our sleep cycle called circadian rhythm and its influence on our gut microbiota and overall health tragetory 1) EAT MOST OF YOUR FOOD IN AM AND EARLY PM 2) NO EATING AT NIGHT 3) EXERCISE DURING DAY 4) BE CONSISTENT WITH MEAL STRUCTURE ie Meals at same time during the day. -- keep record of your food intake - it is easier for us to understand your eating habits and food preferences, looking into the amounts of protein, carbs, and fat in your diet. Good examples of apps to track calories are [employer], LOSE IT. Some patient have found FOODUCATE to help with decisions around food, however choose apps that best suits you. -- for exercise, you should shoot for a goal of >150 min per week initially. Depending at what level you are starting, that may seem like an unachievable task. However, the best plan is to just begin to walk or bike or do another activity that you like and track your steps per day. You do not need to pay attention to the time, but you do need to try to increase your exercise every 3 weeks. Other strength exercises, using light weights or training bands may also be useful, especially when combined with regular aerobic exercise. Studies have shown that >200min per week is best to maintain weight loss, so that would be the overall end goal. -- One option we discussed is to REPLACE one of your meals with a liquid meal or frozen meal. This is easy to start and may help with your weight. 1. Liquid meal replacement (Boost, Ensure) 2. Frozen meal (Healthy Choice, Lean Cuisine - sodium under 650mg, can always add veggies to the meal) 3. Powdered protein (Premier Protein) or meal replacement (I like a plant based meal replacement called [employer] - can mix w froz berries and almond milk) This note was partially generated using [employer] voice recognition system, and there may be some incorrect words, spellings, and punctuation that were not noted in checking the note before saving History Review: I have reviewed and modified as needed, the following during this visit: Allergies, Past Medical History, Past Surgical History, Past Family History, Past Social History. documented in this encounter [facility] 11-08-2023 Emergency department Note Pt requesting rocephin . Dr. Pollard notified of patient request. [facility] 11-08-2023 Emergency department Note Pt requesting rocephin . Dr. Pollard notified of patient request. Emergency Department Report [facility] EMERGENCY DEPARTMENT Service Date:.11/08/23 PCP: Yesy Fernandez Chief Complaint: Chief Complaint Patient presents with Nausea Diarrhea Nasal Congestion Patient has had diarrhea, nausea, nasal congestion, and trouble taking deep breathes because her lungs feel tight. JOYCE Wright is a 38 y.o. female presents to the ED today due to nausea vomiting diarrhea. Patient also complains of lungs feel tight. She states when she ambulates she has difficulty with breathing. The portal fever chills no cold cough. No report of bladder dysfunction. No reported sick contacts. Review of Systems: Review of Systems All other systems reviewed and are negative. Past Medical History: Past Medical History: Diagnosis Date Depression Diabetes mellitus Essential hypertension, benign Past Surgical History: Past Surgical History: Procedure Laterality Date SECTION x3 HYSTERECTOMY partial Allergies: Allergies Allergen Reactions Azithromycin Bactrim [Sulfamethoxazole-Trimethoprim] Hydrocodone Percocet [Oxycodone-Acetaminophen] Wellbutrin [Bupropion] Medications: Patient's Medications New Prescriptions ALBUTEROL 108 (90 BASE) MCG/ACT AERO SOLN INHALER Inhale 2 puffs every 4 hours as needed for Wheezing. Previous Medications No medications on file Modified Medications No medications on file Discontinued Medications No medications on file Family History: History reviewed. No pertinent family history. Social History: Social History Socioeconomic History Marital status: Spouse name: Not on file Number of children: Not on file Years of education: Not on file Highest education level: Not on file Occupational History Not on file Tobacco Use Smoking status: Never Passive exposure: Never Smokeless tobacco: Not on file Vaping Use Vaping Use: Never used Substance and Sexual Activity Alcohol use: Never Drug use: Never Sexual activity: Not on file Other Topics Concern Not on file Social History Narrative Not on file Social Determinants of Health Financial Resource Strain: Not on file Food Insecurity: Not on file Transportation Needs: Not on file Physical Activity: Not on file Stress: Not on file Social Connections: Not on file Intimate Partner Violence: Not on file Housing Stability: Not on file Physical Exam: Physical Exam Constitutional: Appearance: Normal appearance. HENT: Head: Normocephalic and atraumatic. Right Ear: Tympanic membrane and external ear normal. Left Ear: Tympanic membrane and external ear normal. Nose: Nose normal. Mouth/Throat: Mouth: Mucous membranes are moist. Pharynx: Oropharynx is clear. Eyes: Conjunctiva/sclera: Conjunctivae normal. Pupils: Pupils are equal, round, and reactive to light. Cardiovascular: Rate and Rhythm: Normal rate and regular rhythm. Pulses: Normal pulses. Pulmonary: Effort: Pulmonary effort is normal. No respiratory distress. Breath sounds: Normal breath sounds. No wheezing. Abdominal: General: Abdomen is flat. Bowel sounds are normal. There is no distension. Palpations: Abdomen is soft. Tenderness: There is no abdominal tenderness. Musculoskeletal: General: Normal range of motion. Cervical back: Normal range of motion and neck supple. Skin: General: Skin is warm and dry. Capillary Refill: Capillary refill takes less than 2 seconds. Neurological: General: No focal deficit present. Mental Status: She is alert and oriented to person, place, and time. Mental status is at baseline. Psychiatric: Mood and Affect: Mood normal. Behavior: Behavior normal. Vital Signs During ED Visit Patient Vitals for the past 24 hrs: BP Temp Temp src Pulse Resp SpO2 Height Weight 11/08/23 1501 139/90 -- -- 83 18 98 % -- -- 11/08/23 1332 -- -- -- 103 -- 98 % -- -- 11/08/23 1331 -- -- -- 90 18 99 % -- -- 11/08/23 1033 -- -- -- -- -- -- 1.803 m (5' 11 ) 117.5 kg (259 lb) 11/08/23 1032 (!) 145/96 97.4 F (36.3 C) Oral 85 16 100 % -- -- Orders/Results: Orders Placed This Encounter [facility] - NASOPHARYNGEAL XR CHEST PA 1 VIEW INFLUENZA A AND B, PCR COMPREHENSIVE METABOLIC PANEL CBC, EDIF, PLATELET MAGNESIUM B-TYPE NATRIURETIC PEPTIDE (BRAIN) D-DIMER,QUANTITATIVE Troponin I, High sensitivity Sodium chloride 0.9% IV solution 1,000 mL Ondansetron 4mg/2ml (ZOFRAN) injection 4 mg Ipratropium-albuterol (DUONEB) 0.5-2.5 (3) MG/3ML nebulizer solution 3 mL Albuterol 108 (90 Base) MCG/ACT Aero Soln inhaler HCG QUALITATIVE, URINE Results for orders placed or performed during the hospital encounter of 11/08/23 [facility] - NASOPHARYNGEAL Specimen: NASOPHARYNGEAL; Fluid/Swab Result Value Ref Range SARS COV 2 RNA, QL REAL TIME RT PCR NOT DETECTED NOT DETECTED NARRATIVE -1 This test was performed using isothermal THANIA and has been approved as Emergency Use Authorization (EUA) for the qualitative detection [id number] nucleic acid. INFLUENZA A AND B, PCR Result Value Ref Range INFLUENZA A NEGATIVE NEGATIVE INFLUENZA B NEGATIVE NEGATIVE COMPREHENSIVE METABOLIC PANEL Result Value Ref Range Glucose 98 70 - 100 MG/DL BUN 20 7 - 20 MG/DL CREATININE SERUM 0.98 0.70 - 1.20 MG/DL SODIUM 136 (L) 137 - 145 MMOL/L POTASSIUM 4.4 3.5 - 5.1 MMOL/L CHLORIDE 111 (H) 98 - 107 MMOL/L CALCIUM 9.1 8.4 - 10.2 MG/DL PROTEIN, TOTAL 5.8 (L) 6.3 - 8.2 GM/DL Albumin 3.7 3.5 - 5.0 G/dl BILIRUBIN, TOTAL 0.6 0.2 - 1.3 MG/DL AST 23 14 - 36 IU/L ALKALINE PHOSPHATASE 50 38 - 126 IU/L CARBON DIOXIDE (CO2) 18 (L) 22 - 30 MMOL/L A/G Ratio 1.8 RATIO ALT 22 <35 IU/L ESTIMATED GFR, NON AMER 67 ml/min/1.73sq.m ESTIMATED GFR, 81 ml/min/1.73sq.m GFR COMMENT Average GFR for 40-49 years old = 99. CBC, EDIF, PLATELET Result Value Ref Range WBC (WHITE BLOOD COUNT) 11.1 (H) 3.6 - 11.0 10*3/uL RBC 4.85 4.0 - 5.4 10*6/uL HEMOGLOBIN (HGB) 14.2 12.0 - 16.0 G/DL HEMATOCRIT (HCT) 43.8 36.0 - 48.0 % MEAN CELL VOLUME 90.4 80.0 - 100.0 FL Mean Cell HGB 29.3 26.0 - 35.0 PG MEAN CELL HGB CONCENTRATION 32.4 27.0 - 37.0 G/DL RBC DISTRIBUTION 14.1 11.5 - 14.5 % PLATELET COUNT 298 130 - 400 10*3/uL MEAN PLATELET VOLUME 7.5 7.4 - 11.0 FL DIFFERENTIAL TYPE AUTO DIFF % NEUTROPHILS 70.9 37.0 - 75.0 % LYMPHOCYTE 20.1 20.0 - 55.0 % MONOCYTE % 6.2 0.0 - 10.0 % EOSINOPHIL % 2.3 0.0 - 11.0 % BASOPHIL % 0.5 0.0 - 2.0 % Absolute Neutrophil Count 7.9 (H) 1.4 - 6.5 10*3/uL LYMPHOCYTES, ABSOLUTE 2.2 1.2 - 3.4 10*3/uL MONOCYTES, ABSOLUTE 0.7 0.0 - 0.7 10*3/uL ABSOLUTE EOSINOPHIL COUNT 0.3 0.0 - 0.7 10*3/uL ABSOLUTE BASOPHIL COUNT 0.1 0.0 - 0.2 10*3/uL MAGNESIUM Result Value Ref Range MAGNESIUM 1.5 (L) 1.6 - 2.3 MG/DL B-TYPE NATRIURETIC PEPTIDE (BRAIN) Result Value Ref Range BRAIN NATRIURETIC PEPTIDE 12 pg/mL D-DIMER,QUANTITATIVE Result Value Ref Range D-DIMER <0.27 <0.50 g/ml TROPONIN I, HIGH SENSITIVITY Result Value Ref Range TROPONIN I, HIGH SENSITIVITY <2 0 - 12 pg/mL HCG QUALITATIVE, URINE Result Value Ref Range HCG, QUALITATIVE, URINE NEGATIVE NEGATIVE Radiographic Imaging XR CHEST PA 1 VIEW Final Result IMPRESSION: No acute infiltrate or evidence of cardiac decompensation. Direct comparison with a previous study would be helpful in determining the chronicity of these findings. Moderate Sedation Procedure: No Procedures: Procedures ED Summary: Workup unremarkable. Patient symptoms improved after receiving a breathing treatment. Patient will be discharged home in improved condition follow up on outpatient basis. Patient can return for change in symptoms, worsening symptoms, any other issues that she has Clinical Impression: 1. Acute viral syndrome No follow-ups on file. New Prescriptions ALBUTEROL 108 (90 BASE) MCG/ACT AERO SOLN INHALER Inhale 2 puffs every 4 hours as needed for Wheezing. Discontinued Medications No medications on file An After Visit Summary was printed and given to the patient with above information. . . Sanjay Pollard MD 11/08/23 1535 documented in this encounter [facility] 11-08-2023 Physician Emergency department Note Emergency Department Report [facility] EMERGENCY DEPARTMENT Service Date:.11/08/23 PCP: Yesy Fernandez Chief Complaint: Chief Complaint Patient presents with Nausea Diarrhea Nasal Congestion Patient has had diarrhea, nausea, nasal congestion, and trouble taking deep breathes because her lungs feel tight. JOYCE Wright is a 38 y.o. female presents to the ED today due to nausea vomiting diarrhea. Patient also complains of lungs feel tight. She states when she ambulates she has difficulty with breathing. The portal fever chills no cold cough. No report of bladder dysfunction. No reported sick contacts. Review of Systems: Review of Systems All other systems reviewed and are negative. Past Medical History: Past Medical History: Diagnosis Date Depression Diabetes mellitus Essential hypertension, benign Past Surgical History: Past Surgical History: Procedure Laterality Date SECTION x3 HYSTERECTOMY partial Allergies: Allergies Allergen Reactions Azithromycin Bactrim [Sulfamethoxazole-Trimethoprim] Hydrocodone Percocet [Oxycodone-Acetaminophen] Wellbutrin [Bupropion] Medications: Patient's Medications New Prescriptions ALBUTEROL 108 (90 BASE) MCG/ACT AERO SOLN INHALER Inhale 2 puffs every 4 hours as needed for Wheezing. Previous Medications No medications on file Modified Medications No medications on file Discontinued Medications No medications on file Family History: History reviewed. No pertinent family history. Social History: Social History Socioeconomic History Marital status: Spouse name: Not on file Number of children: Not on file Years of education: Not on file Highest education level: Not on file Occupational History Not on file Tobacco Use Smoking status: Never Passive exposure: Never Smokeless tobacco: Not on file Vaping Use Vaping Use: Never used Substance and Sexual Activity Alcohol use: Never Drug use: Never Sexual activity: Not on file Other Topics Concern Not on file Social History Narrative Not on file Social Determinants of Health Financial Resource Strain: Not on file Food Insecurity: Not on file Transportation Needs: Not on file Physical Activity: Not on file Stress: Not on file Social Connections: Not on file Intimate Partner Violence: Not on file Housing Stability: Not on file Physical Exam: Physical Exam Constitutional: Appearance: Normal appearance. HENT: Head: Normocephalic and atraumatic. Right Ear: Tympanic membrane and external ear normal. Left Ear: Tympanic membrane and external ear normal. Nose: Nose normal. Mouth/Throat: Mouth: Mucous membranes are moist. Pharynx: Oropharynx is clear. Eyes: Conjunctiva/sclera: Conjunctivae normal. Pupils: Pupils are equal, round, and reactive to light. Cardiovascular: Rate and Rhythm: Normal rate and regular rhythm. Pulses: Normal pulses. Pulmonary: Effort: Pulmonary effort is normal. No respiratory distress. Breath sounds: Normal breath sounds. No wheezing. Abdominal: General: Abdomen is flat. Bowel sounds are normal. There is no distension. Palpations: Abdomen is soft. Tenderness: There is no abdominal tenderness. Musculoskeletal: General: Normal range of motion. Cervical back: Normal range of motion and neck supple. Skin: General: Skin is warm and dry. Capillary Refill: Capillary refill takes less than 2 seconds. Neurological: General: No focal deficit present. Mental Status: She is alert and oriented to person, place, and time. Mental status is at baseline. Psychiatric: Mood and Affect: Mood normal. Behavior: Behavior normal. Vital Signs During ED Visit Patient Vitals for the past 24 hrs: BP Temp Temp src Pulse Resp SpO2 Height Weight 11/08/23 1501 139/90 -- -- 83 18 98 % -- -- 11/08/23 1332 -- -- -- 103 -- 98 % -- -- 11/08/23 1331 -- -- -- 90 18 99 % -- -- 11/08/23 1033 -- -- -- -- -- -- 1.803 m (5' 11 ) 117.5 kg (259 lb) 11/08/23 1032 (!) 145/96 97.4 F (36.3 C) Oral 85 16 100 % -- -- Orders/Results: Orders Placed This Encounter [facility] - NASOPHARYNGEAL XR CHEST PA 1 VIEW INFLUENZA A AND B, PCR COMPREHENSIVE METABOLIC PANEL CBC, EDIF, PLATELET MAGNESIUM B-TYPE NATRIURETIC PEPTIDE (BRAIN) D-DIMER,QUANTITATIVE Troponin I, High sensitivity Sodium chloride 0.9% IV solution 1,000 mL Ondansetron 4mg/2ml (ZOFRAN) injection 4 mg Ipratropium-albuterol (DUONEB) 0.5-2.5 (3) MG/3ML nebulizer solution 3 mL Albuterol 108 (90 Base) MCG/ACT Aero Soln inhaler HCG QUALITATIVE, URINE Results for orders placed or performed during the hospital encounter of 11/08/23 [facility] 1 - NASOPHARYNGEAL Specimen: NASOPHARYNGEAL; Fluid/Swab Result Value Ref Range SARS COV 2 RNA, QL REAL TIME RT PCR NOT DETECTED NOT DETECTED NARRATIVE -1 This test was performed using isothermal THANIA and has been approved as Emergency Use Authorization (EUA) for the qualitative detection [id number] nucleic acid. INFLUENZA A AND B, PCR Result Value Ref Range INFLUENZA A NEGATIVE NEGATIVE INFLUENZA B NEGATIVE NEGATIVE COMPREHENSIVE METABOLIC PANEL Result Value Ref Range Glucose 98 70 - 100 MG/DL BUN 20 7 - 20 MG/DL CREATININE SERUM 0.98 0.70 - 1.20 MG/DL SODIUM 136 (L) 137 - 145 MMOL/L POTASSIUM 4.4 3.5 - 5.1 MMOL/L CHLORIDE 111 (H) 98 - 107 MMOL/L CALCIUM 9.1 8.4 - 10.2 MG/DL PROTEIN, TOTAL 5.8 (L) 6.3 - 8.2 GM/DL Albumin 3.7 3.5 - 5.0 G/dl BILIRUBIN, TOTAL 0.6 0.2 - 1.3 MG/DL AST 23 14 - 36 IU/L ALKALINE PHOSPHATASE 50 38 - 126 IU/L CARBON DIOXIDE (CO2) 18 (L) 22 - 30 MMOL/L A/G Ratio 1.8 RATIO ALT 22 <35 IU/L ESTIMATED GFR, NON AMER 67 ml/min/1.73sq.m ESTIMATED GFR, 81 ml/min/1.73sq.m GFR COMMENT Average GFR for 40-49 years old = 99. CBC, EDIF, PLATELET Result Value Ref Range WBC (WHITE BLOOD COUNT) 11.1 (H) 3.6 - 11.0 10*3/uL RBC 4.85 4.0 - 5.4 10*6/uL HEMOGLOBIN (HGB) 14.2 12.0 - 16.0 G/DL HEMATOCRIT (HCT) 43.8 36.0 - 48.0 % MEAN CELL VOLUME 90.4 80.0 - 100.0 FL Mean Cell HGB 29.3 26.0 - 35.0 PG MEAN CELL HGB CONCENTRATION 32.4 27.0 - 37.0 G/DL RBC DISTRIBUTION 14.1 11.5 - 14.5 % PLATELET COUNT 298 130 - 400 10*3/uL MEAN PLATELET VOLUME 7.5 7.4 - 11.0 FL DIFFERENTIAL TYPE AUTO DIFF % NEUTROPHILS 70.9 37.0 - 75.0 % LYMPHOCYTE 20.1 20.0 - 55.0 % MONOCYTE % 6.2 0.0 - 10.0 % EOSINOPHIL % 2.3 0.0 - 11.0 % BASOPHIL % 0.5 0.0 - 2.0 % Absolute Neutrophil Count 7.9 (H) 1.4 - 6.5 10*3/uL LYMPHOCYTES, ABSOLUTE 2.2 1.2 - 3.4 10*3/uL MONOCYTES, ABSOLUTE 0.7 0.0 - 0.7 10*3/uL ABSOLUTE EOSINOPHIL COUNT 0.3 0.0 - 0.7 10*3/uL ABSOLUTE BASOPHIL COUNT 0.1 0.0 - 0.2 10*3/uL MAGNESIUM Result Value Ref Range MAGNESIUM 1.5 (L) 1.6 - 2.3 MG/DL B-TYPE NATRIURETIC PEPTIDE (BRAIN) Result Value Ref Range BRAIN NATRIURETIC PEPTIDE 12 pg/mL D-DIMER,QUANTITATIVE Result Value Ref Range D-DIMER <0.27 <0.50 g/ml TROPONIN I, HIGH SENSITIVITY Result Value Ref Range TROPONIN I, HIGH SENSITIVITY <2 0 - 12 pg/mL HCG QUALITATIVE, URINE Result Value Ref Range HCG, QUALITATIVE, URINE NEGATIVE NEGATIVE Radiographic Imaging XR CHEST PA 1 VIEW Final Result IMPRESSION: No acute infiltrate or evidence of cardiac decompensation. Direct comparison with a previous study would be helpful in determining the chronicity of these findings. Moderate Sedation Procedure: No Procedures: Procedures ED Summary: Workup unremarkable. Patient symptoms improved after receiving a breathing treatment. Patient will be discharged home in improved condition follow up on outpatient basis. Patient can return for change in symptoms, worsening symptoms, any other issues that she has Clinical Impression: 1. Acute viral syndrome No follow-ups on file. New Prescriptions ALBUTEROL 108 (90 BASE) MCG/ACT AERO SOLN INHALER Inhale 2 puffs every 4 hours as needed for Wheezing. Discontinued Medications No medications on file An After Visit Summary was printed and given to the patient with above information. . . Sanjay Pollard MD 11/08/23 1535 [facility] 10-13-2023 Note HNO ID: [id number] Author: Fela Gan MD Service: ? Author Type: Physician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 [facility] - Fourth Floor [place] [address] Patient no showed for her appointment. I called her but not answer after she initially said yes to this virtual visit. documented in this encounter [facility] 06-05-2023 Miscellaneous Notes Mounjaro 7.5mg prior auth submitted via cover meds. Silvia Lu MA documented in this encounter [facility] 05-29-2023 Miscellaneous Notes Patient MyChart message requesting the following refill Refill(s) Requested: Requested Prescriptions Pending Prescriptions Disp Refills metFORMIN (GLUCOPHAGE) 1,000 mg tablet 60 tablet 1 Sig: Take 1 tablet by mouth twice daily. lisinopril (ZESTRIL) 40 mg tablet 30 tablet 1 Sig: Take 1 tablet by mouth once daily. metoprolol succinate ER (TOPROL XL) 100 mg 30 tablet 1 Sig: Take 1 tablet by mouth daily at bedtime. DULoxetine (CYMBALTA) 60 mg capsule 30 capsule 0 Sig: Take 1 capsule by mouth once daily. Refused Prescriptions Disp Refills ergocalciferol 50,000 unit capsule (VITAMIN D2, DRISDOL) 12 capsule 0 Sig: Take 1 capsule by mouth one time a week. ALLERGIES Allergen Reactions Dihydroaminopryidin* Diarrhea, Hives, Itching, Rash Hydrocodone Hives, Rash Oxycodone-Acetamino* Diarrhea, Rash, Vomiting Sulfa (Sulfonamide * Diarrhea, Rash Sulfamethoxazole-Tr* Diarrhea, Itching, Rash Victoza [Liraglutid* Rash (home) [phone] (cell) Last Office Visit Date: 09/28/2022 Last Distance Health Visit: Visit date not found Future Appointment: Visit date not found The patients preferred pharmacy has been captured for this encounter? yes Request is for script(s) to be escript to pharmacy. No Oconnor LPN documented in this encounter [facility] 05-24-2023 Miscellaneous Notes Pharmacy has 7.5 according to patient. 7.5 dose pended for signature Sivlia Lu MA I spoke with [facility] and they do have 10 mg available. They are unable to order 12.5 or 15 mg. Ranjana Casper MA documented in this encounter [facility] 05-04-2023 Note HNO ID: [id number] Author: Sabra Power LPN Service: ? Author Type: LICENSED NURSE Type: Progress Notes Filed: 05/04/2023 3:10 PM Note Text: This encounter was opened in error. [facility] 03-21-2023 Miscellaneous Notes Thank you so much for helping me get to the bottom of that! I will remove it from her medication list, then. Thanks again, Yesy Fernandez DO Spoke with patient. Patient last took the Invokana as of yesterday. She recently saw Dr Gan and she would like her to stop taking the invokana due to the amount of weight that she has lost. Britney Sprague LPN 03/21/23 3:51 PM Do we know how long it has been since Ms. Wright was on Invokana? I know we had tried to resume it when she moved up here to [place] as she was taking it previously. If it has been awhile since she has been on it, I may wait for her to get her hemoglobin A1c drawn [I see a lab order standing from [facility]] to see how she has been faring without it. I just want to ensure that by adding it back on, we aren't going to be dropping her blood sugar too much - especially since [facility] recently started her on Mounjaro as well. If she still has some room for better control after her repeat A1c, I'll start Jardiance. Thanks so much, Yesy Fernandez DO PA for invokana has been denied. Health Plan s Preferred Products JARDIANCE TAB 25MG [id number] FARXIGA TAB 10MG [id number] Denial letter has been placed in Dr Schilling folder. Britney Sprague LPN 03/20/23 9:56 AM PA for Invokana has been initiated through cover my meds. Patient may need to try Jardiance before this will be approved. It is the preferred medication. Syjardy or Syjardy XR is also noted as a preferred med. Britney Sprague LPN 03/16/23 12:25 PM documented in this encounter [facility] 03-17-2023 Note HNO ID: [id number] Author: Fela Gan MD Service: ? Author Type: Physician Type: Progress Notes Filed: 03/17/2023 9:55 AM Note Text: Fela Gan MD [facility] [address] [place] [address], [address] [facility] - Fourth Floor [place] [address] This Team Access Model visit is a virtual visit due to COVID -19 Pandemic . It required patient-provider interaction for the medical decision making as documented below. Consent was obtained to complete today's distance health visit. I have communicated my name and active licensure. The patient's identity and physical location were verified at the time of this visit. Either the patient or their legal title insurance sales representative has been informed of the risks and benefits of -- and alternatives to -- treatment through a remote evaluation and consents to proceed with the evaluation remotely. Cindy Wright is a 37 year old female with has a past medical history of Anxiety and Hypertension. She has no past medical history of Scoliosis. here today for a follow up on her weight loss efforts. She is currently taking the prescription weight loss medication Metformin, Mounjaro, off label, and Topiramate, off label Concerns: doing very well - not interested in surgery She is continuing with diet changes: yes -Main focus of dietary changes: more consistent She is continuing with exercise changes: yes -Exercise routine: but adding more walks - formal exercise Goal weight:200/180 Review of weight loss medication side effects Any GI upset? no Changes to blood pressure? no Visual Changes: no -- Patient reports suppression of her appetite and increase in satiety since starting the medication Diet: Breakfast slim fast or eggs /yoghurt Snacks:denies Lunch slim fast Dinner grilled veggies and protein snacks denies Satiety and Satiation improved Cravings well controlled Sleep: Good/7 hors Stress: Coping well Smoking/Alcohol -denies Exercise Freq: Barriers: Work-related activity: Sedentary Review of Systems Constitutional: Negative for malaise/fatigue. HENT: Negative for congestion and tinnitus. Eyes: Negative for blurred vision. Respiratory: Negative for shortness of breath. Cardiovascular: Negative for palpitations, orthopnea and leg swelling. Gastrointestinal: Negative for heartburn, nausea and vomiting. Genitourinary: Negative for dysuria and frequency. Musculoskeletal: Positive for back pain. Neurological: Negative for weakness. Psychiatric/Behavioral: The patient does not have insomnia. Constitutional: Positive for malaise/fatigue. HENT: Negative for congestion and tinnitus. Eyes: Negative for blurred vision. No glaucoma Respiratory: Negative for shortness of breath. Cardiovascular: Negative for palpitations, orthopnea and leg swelling. Gastrointestinal: Positive for heartburn. Negative for nausea and vomiting. Genitourinary: Negative for dysuria and frequency. No kidney stones Musculoskeletal: Positive for back pain and joint pain. Neurological: Negative for weakness. Psychiatric/Behavioral: The patient does not have insomnia. VITALS: Ht 182.9 cm (6') Wt 135.6 kg (299 lb) LMP 10/16/2018 (Approximate) BMI 40.55 kg/m? , Body mass index is 40.55 kg/m?. Physical Exam Constitutional:. --no issues with communication HEENT: Normocephalic and atraumatic. Eyes: Conjunctiva appear normal. No scleral icterus. Hearing: Is grossly intact. Neck: Range of motion appears normal. Thyroid: appears symmetric and not enlarged. Pulmonary/Chest: Effort normal. Psychiatric: Mood, memory, affect and judgment normal. Neurological: alert and oriented to person, place, and time. Impression and Plan: ASSESSMENT/PLAN: 1. Class 3 severe obesity with serious comorbidity in adult, unspecified BMI, unspecified obesity type (HCC) - ICD9: 278.01, ICD10: E66.01 (primary diagnosis) Weight decreasing - Behavioral and pharmacological intervention --Has responded very well to Mounjaro her cravings and hunger are well controlled on current medication with combination of Mounjaro/topiramate and metformin. She has stopped glipizide. Also discussed that if blood sugars are well controlled may stop Invokana. Recommended to repeat her labs in a month. Topamax is also help to come off of gabapentin currently she is tapering her gabapentin down. She will be discussing this further with her primary care. - HGB A1C - COMP METABOLIC PANEL 2. Dietary counseling and surveillance - ICD9: V65.3, ICD10: Z71.3 Reviewed principles of energy metabolism, caloric intake and expenditure, and rationale for treatment program. Also reinforced need for reduced calorie, low fat diet and increased physical activity. 3. Uncontrolled type 2 diabetes mellitus with hyperglycemia (HCC) - ICD9: 250.02, ICD10: E11.65 - Improving control - Continue current medications (more content not included)... [facility] 03-17-2023 Instructions Fela Gan MD - 03/17/2023 9:39 AM EDT TRYING TO LOSE WEIGHT? Your Body mass index is 40.55 kg/m . (Target BMI: 19-25) A person with a BMI between 25 and 29.9 is considered overweight A person with a BMI of 30 or greater is considered to be obese SETTING A WEIGHT LOSS GOAL: Last 5 Encounter Wt Readings: Date: Wt: 03/17/2023 135.6 kg (299 lb) 01/10/2023 148.2 kg (326 lb 12.8 oz) 09/28/2022 147.9 kg (326 lb) 07/18/2022 148.8 kg (328 lb) Lose 10% of body weight over six months, about 1-2 lbs per week LIFESTYLE CHANGES -- The goals of lifestyle changes are to help you change your eating habits, become more active, and be more aware of how much you eat and exercise, helping you to make healthier choices. This can be broken down into three steps: 1. Triggers to eat -- Determining what triggers you to eat involves figuring out what foods you eat and where and when you eat. To figure out what triggers you to eat, keep a record for a few days of everything you eat, the places where you eat, how often you eat, and the emotions you were feeling when you ate. For some people, the trigger is related to a certain time of day or night. For others, the trigger is related to a certain place, like sitting at a desk working. 2. Eating -- You can change your eating habits by breaking the chain of events between the trigger for eating and eating itself. There are many ways to do this. For instance, you can: Limit where you eat to a few places (eg, dining room) Restrict the number of utensils (eg, only a fork) used for eating Drink a sip of water between each bite Chew your food a certain number of times Get up and stop eating every few minutes 3. What happens after you eat -- Rewarding yourself for good eating behaviors can help you to develop better habits. This is not a reward for weight loss; instead, it is a reward for changing unhealthy behaviors. Do not use food as a reward. Some people find money, clothing, or personal care (eg, a hair cut, manicure, or massage) to be effective rewards. Treat yourself immediately after making better eating choices to reinforce the value of the good behavior. You need to have clear behavior goals, and you must have a time frame for reaching your goals. Reward small changes along the way to your final goal. Other factors that contribute to successful weight loss -- Establish a kourtney system -- Having a friend or family member available to provide support and reinforce good behavior is very helpful. The support person needs to understand your goals. Learn to be strong -- Learning to be strong when tempted by food is an important part of losing weight. As an example, you will need to learn how to say no and continue to say no when urged to eat at parties and social gatherings. Develop strategies for events before you go, such as eating before you go or taking low-calorie snacks and drinks with you. Develop a support system -- Having a support system is helpful when losing weight. This is why many commercial groups are successful. Family support is also essential; if your family does not support your efforts to lose weight, this can slow your progress or even keep you from losing weight. Positive thinking -- People often have conversations with themselves in their head; these conversations can be positive or negative. If you eat a piece of cake that was not planned, you may respond by thinking, Oh, you stupid idiot, you've blown your diet! and as a result, you may eat more cake. A positive thought for the same event could be, Well, I ate cake when it was not on my plan. Now I should do something to get back on track. A positive approach is much more likely to be successful than a negative one. Reduce stress -- Although stress is a part of everyday life, it can trigger uncontrolled eating in some people. It is important to find a way to get through these difficult times without eating or by eating low-calorie food, like raw vegetables. It may be helpful to imagine a relaxing place that allows you to temporarily escape from stress. With deep breaths and closed eyes, you can imagine this relaxing place for a few minutes. Self-help programs -- Self-help programs like Weight Watchers , Overeaters Anonymous , and Take Off Pounds Sensibly (TOPS) work for some people. As with all weight loss programs, you are most likely to be successful with these plans if you make long-term changes in how you eat. CHOOSING A DIET -- A calorie is a unit of energy found in food. Your body needs calories to function. The goal of any diet is to burn up more calories than you eat. How quickly you lose weight depends upon several factors, such as your age, gender, and starting weight. Older people have a slower metabolism than young people, so they lose weight more slowly. Men lose more weight than women of similar height and weight when dieting because they use more energy. People who are extremely overweight lose weight more quickly than those who are only mildly overweight. How many calories do I need? -- You can estimate the number of calories you need per day based upon your current (or target) weight, gender, and activity level for women and for men. In general, it is best to choose foods that contain enough protein, carbohydrates, essential fatty acids, and vitamins. Try not to drink alcohol or drinks with added sugar, and most sweets (candy, cakes, cookies), since they rarely contain important nutrients. Portion-controlled diets -- One simple way to diet is to buy packaged foods, like frozen low-calorie meals or meal-replacement canned drinks. A typical meal plan for 1000 to 1500 calories per day may include: A meal-replacement drink or breakfast bar for breakfast A meal-replacement drink or a frozen low-calorie (250 to 350 calories) meal for lunch A frozen low-calorie meal or other prepackaged, calorie-controlled meal, along with extra vegetables for dinner Low-fat diet -- To reduce the amount of fat in your diet, you can: Eat low-fat foods. Low-fat foods are those that contain less than 30 percent of calories from fat. Fat is listed on the food facts label Count fat grams. For a 1500 calorie diet, this would mean about 45 g or fewer of fat per day. Low-carbohydrate diet -- Low- and gehk-nrq-iytwheigswcr diets (eg, Atkins diet, [employer] diet) have become popular ways to lose weight quickly. With a btsj-xzw-drppwvnuzqfx diet, you eat between 0 and 60 grams of carbohydrates per day (a standard diet contains 200 to 300 grams of carbohydrates) With a low-carbohydrate diet, you eat between 60 and 130 grams of carbohydrates per day Carbohydrates are found in fruits, vegetables, and grains (including breads, rice, pasta, and cereal), alcoholic beverages, and in dairy products. Meat and fish do not contain carbohydrates. Side effects of ovbf-srb-ymjczsujzdbr diets can include constipation, headache, bad breath, muscle cramps, diarrhea, and weakness. Mediterranean diet -- The term Mediterranean diet refers to a way of eating that is common in olive-growing regions around the [place] Sea. Although there is some variation in Mediterranean diets, there are some similarities. Most Mediterranean diets include: A high level of monounsaturated fats (from olive or canola oil, walnuts, pecans, almonds) and a low level of saturated fats (from butter) A high amount of vegetables, fruits, legumes, and grains (7 to 10 servings of fruits and vegetables per day) A moderate amount of milk and dairy products, mostly in the form of cheese. Use low-fat dairy products (skim milk, fat-free yogurt, low-fat cheese). A relatively low amount of red meat and meat products. Substitute fish or poultry for red meat. For those who drink alcohol, a modest amount (mainly as red wine) may help to protect against cardiovascular disease. A modest amount is up to one (4 ounce) glass per day for women and up to two glasses per day for men. Which diet is best? -- No one diet is best for weight loss. Any diet will help you to lose weight if you stick with the diet. Therefore, it is important to choose a diet that includes foods you like. Fad diets -- Fad diets often promise quick weight loss (more than 1 to 2 pounds per week) and may claim that you do not need to exercise or give up favorite foods. Some fad diets cost a lot of money, because you have to pay for seminars or pills. Fad diets generally lack any scientific evidence that they are safe and effective, but instead rely on before and after photos or testimonials. Diets that sound too good to be true usually are. These plans are a waste of time and money and are not recommended. A doctor, nurse, or creping machine operator helper can help you find a safe and effective way to lose weight and keep it off. Adapted from [facility] documented in this encounter [facility] 03-17-2023 History of Presen t illness Narrative Images from the original note were not included. Fela Gan MD [facility] [address] [facility], [facility] [address] [facility] - [address] Floor [place] [address] This Team Access Model visit is a virtual visit due to COVID -19 Pandemic . It required patient-provider interaction for the medical decision making as documented below. Consent was obtained to complete today's distance health visit. I have communicated my name and active licensure. The patient's identity and physical location were verified at the time of this visit. Either the patient or their legal title insurance sales representative has been informed of the risks and benefits of -- and alternatives to -- treatment through a remote evaluation and consents to proceed with the evaluation remotely. Cindy Wright is a 37 year old female with has a past medical history of Anxiety and Hypertension. She has no past medical history of Scoliosis. here today for a follow up on her weight loss efforts. She is currently taking the prescription weight loss medication Metformin, Mounjaro, off label, and Topiramate, off label Concerns: doing very well - not interested in surgery She is continuing with diet changes: yes -Main focus of dietary changes: more consistent She is continuing with exercise changes: yes -Exercise routine: but adding more walks - formal exercise Goal weight:200/180 Review of weight loss medication side effects Any GI upset? no Changes to blood pressure? no Visual Changes: no -- Patient reports suppression of her appetite and increase in satiety since starting the medication Diet: Breakfast slim fast or eggs /yoghurt Snacks:denies Lunch slim fast Dinner grilled veggies and protein snacks denies Satiety and Satiation improved Cravings well controlled Sleep: Good/7 hors Stress: Coping well Smoking/Alcohol -denies Exercise Freq: Barriers: Work-related activity: Sedentary Review of Systems Constitutional: Negative for malaise/fatigue. HENT: Negative for congestion and tinnitus. Eyes: Negative for blurred vision. Respiratory: Negative for shortness of breath. Cardiovascular: Negative for palpitations, orthopnea and leg swelling. Gastrointestinal: Negative for heartburn, nausea and vomiting. Genitourinary: Negative for dysuria and frequency. Musculoskeletal: Positive for back pain. Neurological: Negative for weakness. Psychiatric/Behavioral: The patient does not have insomnia. Constitutional: Positive for malaise/fatigue. HENT: Negative for congestion and tinnitus. Eyes: Negative for blurred vision. No glaucoma Respiratory: Negative for shortness of breath. Cardiovascular: Negative for palpitations, orthopnea and leg swelling. Gastrointestinal: Positive for heartburn. Negative for nausea and vomiting. Genitourinary: Negative for dysuria and frequency. No kidney stones Musculoskeletal: Positive for back pain and joint pain. Neurological: Negative for weakness. Psychiatric/Behavioral: The patient does not have insomnia. VITALS: Ht 182.9 cm (6') Wt 135.6 kg (299 lb) LMP 10/16/2018 (Approximate) BMI 40.55 kg/m , Body mass index is 40.55 kg/m . Physical Exam Constitutional:. --no issues with communication HEENT: Normocephalic and atraumatic. Eyes: Conjunctiva appear normal. No scleral icterus. Hearing: Is grossly intact. Neck: Range of motion appears normal. Thyroid: appears symmetric and not enlarged. Pulmonary/Chest: Effort normal. Psychiatric: Mood, memory, affect and judgment normal. Neurological: alert and oriented to person, place, and time. Impression and Plan: ASSESSMENT/PLAN: 1. Class 3 severe obesity with serious comorbidity in adult, unspecified BMI, unspecified obesity type (HCC) - ICD9: 278.01, ICD10: E66.01 (primary diagnosis) Weight decreasing - Behavioral and pharmacological intervention --Has responded very well to Mounjaro her cravings and hunger are well controlled on current medication with combination of Mounjaro/topiramate and metformin. She has stopped glipizide. Also discussed that if blood sugars are well controlled may stop Invokana. Recommended to repeat her labs in a month. Topamax is also help to come off of gabapentin currently she is tapering her gabapentin down. She will be discussing this further with her primary care. - HGB A1C - COMP METABOLIC PANEL 2. Dietary counseling and surveillance - ICD9: V65.3, ICD10: Z71.3 Reviewed principles of energy metabolism, caloric intake and expenditure, and rationale for treatment program. Also reinforced need for reduced calorie, low fat diet and increased physical activity. 3. Uncontrolled type 2 diabetes mellitus with hyperglycemia (HCC) - ICD9: 250.02, ICD10: E11.65 - Improving control - Continue current medications - Stop canagliflozin (Invokana) - HGB A1C - COMP METABOLIC PANEL 4. Body mass index 40.0-44.9, adult (HCC) - ICD9: V85.41, ICD10: Z68.41 Weight decreasing - Behavioral and pharmacological intervention --She has lost 26 pounds in past 2 months. Also has cut down completely on processed food sugary drinks Soda. 5. Vitamin D deficiency - ICD9: 268.9, ICD10: E55.9 Continue supplements. 6. Primary hypertension - ICD9: 401.9, ICD10: I10 - good control - Encouraged dietary sodium restriction/DASH diet - Recommended regular aerobic exercise. - Recommend home blood pressure monitoring, to bring results in on next visit - Goal of BP <130/80 Fela Gan MD She is responding well to the medication, losing over 26 pounds over the last 2month(s).{ Her weight-related medical comorbidities are improving with weight loss. She is doing well otherwise, continues lifestyle modification. She remains motivated to lose weight. Reviewed principles of energy metabolism, caloric intake and expenditure, and rationale for treatment program. Also reinforced need for reduced calorie, low fat diet and increased physical activity. Fela Gan MD Some elements were copied from my last note, which have been updated where appropriate, and all reflect current medical decision making from [facility] Counseling Visit 20 minutes for preventive counseling/IBT : including reviewing chart and finishing my notes Screening for obesity completed during initial plan of care. Patient was competent and alert at the time that counseling was provided. 5a's reviewed: Assess- I assessed behavioral health risk/factors affecting --- Asked about/assess behavioral health risk(s) and factors affecting choice of behavior change goals -Insulin resistance uncontrolled blood sugar though she states that since past 2 months since she has been on Mounjaro changing her eating pattern her blood sugar has been much better controlled recommended to repeat her A1c in about a month. Also discussed adding more fibers to her meals. Recommended continuing with at least 70 g of protein daily as well as 70 ounces of water continue with strength training. Advise: clear, specific, personalized behavior change advice. -I gave very clear, specific, and personalized behavior change adviced, including information about personal health harms and benefits. Recommended add 60 to 70 ounces of plain water or lemon water Advised to get at least 60-80 g of protein daily. Next Agree: Agree: Patient agrees with selected appropriate treatment goals and methods to change behavior Assist:provided IBT w self-help, handouts, teaching skills and support Using behavior change techniques with self-help and Counseling in achieving Goals. Also discussed supplementing with adjunctive medical treatments when appropriate. Arrange- follow up scheduled, Handouts given to patient My opinion -- 3 hour Rule -last meal /snack 3 hours before sleeping ,try to be done by 7 pm --eat Rich Breakfast - At Least 3 hours break between each meals ,except water --sleep 7 hours at night , that means going to bed early -- drink only water ( no soda or juices) /no Alcohol consumption --cut down on coffee consumption if consuming high amounts Website :You can visit to web site for low carb recipe information as well as visual guide to low carb food: [employer] Limit carb consumption to 80- 100 grams per day. Goals: formal exercise 2-5 x/week as tolerated, start with 10 mins/day to goal of 30 minutes Have 3 meals a day-protein source with each meal (structured meal planning) Food journal daily and bring it to all appointments -- IN GENERAL - suggestions based on important of our sleep cycle called circadian rhythm and its influence on our gut microbiota and overall health tragetory 1) EAT MOST OF YOUR FOOD IN AM AND EARLY PM 2) NO EATING AT NIGHT 3) EXERCISE DURING DAY 4) BE CONSISTENT WITH MEAL STRUCTURE ie Meals at same time during the day. -- keep record of your food intake - it is easier for us to understand your eating habits and food preferences, looking into the amounts of protein, carbs, and fat in your diet. Good examples of apps to track calories are [employer], LOSE IT. Some patient have found FOODUCATE to help with decisions around food, however choose apps that best suits you. -- for exercise, you should shoot for a goal of >150 min per week initially. Depending at what level you are starting, that may seem like an unachievable task. However, the best plan is to just begin to walk or bike or do another activity that you like and track your steps per day. You do not need to pay attention to the time, but you do need to try to increase your exercise every 3 weeks. Other strength exercises, using light weights or training bands may also be useful, especially when combined with regular aerobic exercise. Studies have shown that >200min per week is best to maintain weight loss, so that would be the overall end goal. -- One option we discussed is to REPLACE one of your meals with a liquid meal or frozen meal. This is easy to start and may help with your weight. 1. Liquid meal replacement (Boost, Ensure) 2. Frozen meal (Healthy Choice, Lean Cuisine - sodium under 650mg, can always add veggies to the meal) 3. Powdered protein (Premier Protein) or meal replacement (I like a plant based meal replacement called Healthy [employer] - can mix w froz berries and almond milk) This note was partially generated using [employer] voice recognition system, and there may be some incorrect words, spellings, and punctuation that were not noted in checking the note before saving documented in this encounter [facility] 03-09-2023 Miscellaneous Notes Open in error documented in this encounter [facility] 02-10-2023 Miscellaneous Notes Pharmacy faxed requesting the following refill Refill(s) Requested: Requested Prescriptions Pending Prescriptions Disp Refills buPROPion XL (WELLBUTRIN XL) 300 mg 24 hr tablet 30 tablet 0 Sig: Take 1 tablet by mouth once daily. ALLERGIES Allergen Reactions Dihydroaminopryidin* Diarrhea, Hives, Itching, Rash Hydrocodone Hives, Rash Oxycodone-Acetamino* Diarrhea, Rash, Vomiting Sulfa (Sulfonamide * Diarrhea, Rash Sulfamethoxazole-Tr* Diarrhea, Itching, Rash Victoza [Liraglutid* Rash (home) [phone] (cell) Last Office Visit Date: 09/28/2022 Last [facility] Visit: Visit date not found Future Appointment: Visit date not found The patients preferred pharmacy has been captured for this encounter? yes Request is for script(s) to be escript to pharmacy. Josy Escobedo documented in this encounter [facility] 02-02-2023 Miscellaneous Notes Patient called back and I relayed message. No other questions at this time. Ranjana Casper MA Attempted to call patient however there was no answer and voicemail was full. Sent patient a [employer] message. Ranjana Casper MA She can double up on to Topamax. But also recommend her to discuss regarding tapering down gabapentin with her PCP so that they are aware of this Phone call from patient stating that she has been doing great on Mounjaro. Patient states she spoke with you regarding her gabapentin at her office visit on 01/10. She states she wants to get off of the gabapentin and possibly double the topiramate and wanted to see if that was okay. Ranjana Casper MA documented in this encounter [facility] 02-02-2023 Miscellaneous Notes Patient called the office and is requesting an increase to the 5 mg dose. Ranjana Casper MA Pharmacy sent a [email or web address] message requesting the following refill. Requested Prescriptions Pending Prescriptions Disp Refills MOUNJARO 2.5 mg/0.5 mL pen injector [Pharmacy Med Name: MOUNJARO 2.5 MG/0.5 ML PEN] 2 mL 0 Sig: inject 0.5 milliliters subcutaneously every week Next Appointment: 03/17/2023 Patient Phone numbers: [phone] (home) Request is for script(s) to be escript to pharmacy. Judy Alanis Ma documented in this encounter [facility] 02-02-2023 Miscellaneous Notes Pharmacy faxed requesting the following refill Refill(s) Requested: Requested Prescriptions Pending Prescriptions Disp Refills ergocalciferol 50,000 unit capsule (VITAMIN D2, DRISDOL) 12 capsule 0 Sig: Take 1 capsule by mouth one time a week. metoprolol succinate ER (TOPROL XL) 100 mg 30 tablet 1 Sig: Take 1 tablet by mouth daily at bedtime. lisinopril (ZESTRIL) 40 mg tablet 30 tablet 1 Sig: Take 1 tablet by mouth once daily. metFORMIN (GLUCOPHAGE) 1,000 mg tablet 60 tablet 1 Sig: Take 1 tablet by mouth twice daily. DULoxetine (CYMBALTA) 60 mg capsule 30 capsule 0 Sig: Take 1 capsule by mouth once daily. buPROPion XL (WELLBUTRIN XL) 300 mg 24 hr tablet 30 tablet 0 Sig: Take 1 tablet by mouth once daily. gabapentin (NEURONTIN) 400 mg capsule 60 capsule 0 Sig: Take 1 capsule by mouth twice daily for 30 days. INVOKANA 300 mg tablet 30 tablet 0 Sig: Take 1 tablet by mouth once daily. ALLERGIES Allergen Reactions Dihydroaminopryidin* Diarrhea, Hives, Itching, Rash Hydrocodone Hives, Rash Oxycodone-Acetamino* Diarrhea, Rash, Vomiting Sulfa (Sulfonamide * Diarrhea, Rash Sulfamethoxazole-Tr* Diarrhea, Itching, Rash (home) [phone] (cell) Last Office Visit Date: 09/28/2022 Last [facility] Visit: Visit date not found Future Appointment: Visit date not found The patients preferred pharmacy has been captured for this encounter? yes Request is for script(s) to be escript to pharmacy. Josy Escobedo documented in this encounter [facility] 01-13-2023 Miscellaneous Notes Pharmacy faxed requesting the following refill Refill(s) Requested: Requested Prescriptions Pending Prescriptions Disp Refills ibuprofen (MOTRIN) 600 mg tablet 120 tablet 0 Sig: TAKE 1 TAB BY MOUTH EVERY 6 HOURS NEEDED FOR FEVER OR PAIN ALLERGIES Allergen Reactions Dihydroaminopryidin* Diarrhea, Hives, Itching, Rash Hydrocodone Hives, Rash Oxycodone-Acetamino* Diarrhea, Rash, Vomiting Sulfa (Sulfonamide * Diarrhea, Rash Sulfamethoxazole-Tr* Diarrhea, Itching, Rash (home) [phone] (cell) Last Office Visit Date: 09/28/2022 Last [facility] Visit: Visit date not found Future Appointment: Visit date not found The patients preferred pharmacy has been captured for this encounter? yes Request is for script(s) to be escript to pharmacy. Sabar Power LPN documented in this encounter [facility] 01-10-2023 Miscellaneous Notes Pharmacy faxed requesting the following refill Refill(s) Requested: Requested Prescriptions Pending Prescriptions Disp Refills cyclobenzaprine (FLEXERIL) 10 mg tablet 60 tablet 0 Sig: Take 1 tablet by mouth twice daily as needed. gabapentin (NEURONTIN) 400 mg capsule 60 capsule 0 Sig: Take 1 capsule by mouth twice daily for 30 days. INVOKANA 300 mg tablet 30 tablet 0 Sig: Take 1 tablet by mouth once daily. ALLERGIES Allergen Reactions Dihydroaminopryidin* Diarrhea, Hives, Itching, Rash Hydrocodone Hives, Rash Oxycodone-Acetamino* Diarrhea, Rash, Vomiting Sulfa (Sulfonamide * Diarrhea, Rash Sulfamethoxazole-Tr* Diarrhea, Itching, Rash (home) [phone] (cell) Last Office Visit Date: 09/28/2022 Last [facility] Health Visit: Visit date not found Future Appointment: Visit date not found The patients preferred pharmacy has been captured for this encounter? yes Request is for script(s) to be escript to pharmacy. Josy Escobedo documented in this encounter [facility] documented as of this encounter (statuses as of 07/21/2023) [facility] History of Past illness Narrative* Problem Noted Date Diagnosed Date Resolved Date Body mass index 40.0-44.9, adult 01/10/2023 07/20/2023 Class 3 severe obesity with serious comorbidity in adult 01/10/2023 07/20/2023 documented as of this encounter (statuses as of 07/27/2023) [facility] History of Past illness Narrative* Problem Noted Date Diagnosed Date Resolved Date Body mass index 40.0-44.9, adult 01/10/2023 07/20/2023 Class 3 severe obesity with serious comorbidity in adult 01/10/2023 07/20/2023 documented as of this encounter (statuses as of 08/07/2023) [address]14-2023 History of Past illness Narrative* Problem Noted Date Diagnosed Date Resolved Date Body mass index 40.0-44.9, adult 01/10/2023 07/20/2023 Class 3 severe obesity with serious comorbidity in adult 01/10/2023 07/20/2023 documented as of this encounter (statuses as of 08/08/2023) [facility] History of Past illness Narrative* Problem Noted Date Diagnosed Date Resolved Date Body mass index 40.0-44.9, adult 01/10/2023 07/20/2023 Class 3 severe obesity with serious comorbidity in adult 01/10/2023 07/20/2023 documented as of this encounter (statuses as of 08/22/2023) [facility] History of Past illness Narrative* Problem Noted Date Diagnosed Date Resolved Date Body mass index 40.0-44.9, adult 01/10/2023 07/20/2023 Class 3 severe obesity with serious comorbidity in adult 01/10/2023 07/20/2023 documented as of this encounter (statuses as of 09/08/2023) [facility] History of Past illness Narrative* Problem Noted Date Diagnosed Date Resolved Date Body mass index 40.0-44.9, adult 01/10/2023 07/20/2023 Class 3 severe obesity with serious comorbidity in adult 01/10/2023 07/20/2023 documented as of this encounter (statuses as of 09/27/2023) [address]14-2023 History of Past illness Narrative* Problem Noted Date Diagnosed Date Resolved Date Body mass index 40.0-44.9, adult 01/10/2023 07/20/2023 Class 3 severe obesity with serious comorbidity in adult 01/10/2023 07/20/2023 documented as of this encounter (statuses as of 10/13/2023) [address]-2023 History of Past illness Narrative* Problem Noted Date Diagnosed Date Resolved Date Uncontrolled type 2 diabetes mellitus with hyperglycemia 01/10/2023 10/13/2023 Body mass index 40.0-44.9, adult 01/10/2023 07/20/2023 Class 3 severe obesity with serious comorbidity in adult 01/10/2023 07/20/2023 documented as of this encounter (statuses as of 10/13/2023) [facility] History of Past illness Narrative* Problem Noted Date Diagnosed Date Resolved Date Uncontrolled type 2 diabetes mellitus with hyperglycemia 01/10/2023 10/13/2023 Body mass index 40.0-44.9, adult 01/10/2023 07/20/2023 Class 3 severe obesity with serious comorbidity in adult 01/10/2023 07/20/2023 documented as of this encounter (statuses as of 10/14/2023) [facility] History of Past illness Narrative* Problem Noted Date Diagnosed Date Resolved Date Uncontrolled type 2 diabetes mellitus with hyperglycemia 01/10/2023 10/13/2023 Body mass index 40.0-44.9, adult 01/10/2023 07/20/2023 Class 3 severe obesity with serious comorbidity in adult 01/10/2023 07/20/2023 documented as of this encounter (statuses as of 01/05/2024) [facility]02-14-2023 NoteHNO ID: [id number] Author: Fela Gan MD Service: ? Author Type: Physician Type: Progress Notes Filed: 07/24/2023 9:24 AM Note Text: Fela Gan MD [address], [place] [address] [facility] - Fourth Floor [place] [phone] SUBJECTIVE: Cindy Wright is a 37 year old female with DM2/ HTN of presents on January 10, 2023 for medical evaluation of Non-Surgical Metabolic Weight Management . Discussed extensively regarding bariatric surgery option but patient is interested interested in bariatric surgery. Age at onset - early adult years. Rate of weight gain is described as gradual over years. Has gained >150 lbs in past 18 years Family history positive for obesity in the patient?s patient. She considers ideal weight to be 200/ 180 lbs . Previous treatments include self-directed dieting, Weight Watchers, TOPS, or similar program, and gym . Lifestyle Factors: Diet: Do you think that you have a healthy diet? No. Overall characterization of present diet:Unstructured and not making the best choice/ use to drink diet drink. /diet power drinks . How have you tried to lose weight in the past? Yes. Routine Portion is a big issue Power drinks Here and there tea / cofffee [place] juice Breakfast: 6:30 am : drive through [place] / egg /biscuit meal s Snacks: Lunch: - eating out but now trying to pack her lunch Snack:not usually Dinner: fast food but trying to pack Snack: No Bedtime Sleeps: 5-8 pm Wake up:5 am Exercise: Do you exercise ? No Are you able to walk up a flight of stairs or a small hill? Yes Patient's functional capacity is >4 METS. The composite complication rate of , unstable angina, CO, DVT, PE, renal failure, and stroke occurred in 16.6% of severely obese patients whose peak oxygen consumption was < 15.8 mL/kg/min but in only 2.8% of those whose cardiorespiratory fitness was >/= 15.8 mL/kg/min. By convention, 1 MET is considered equivalent to the consumption of 3.5 ml O2?kg-1?min-1 (or 3.5 ml of oxygen per kilogram of body mass per minute) and is roughly equivalent to the expenditure of 1 kcal per kilogram of body weight per hour. Sleep: Duration: > 6 hours:Yes Sleep apnea screen: Sleep study was neg Chest pain, SOB, or CHRISTINE: No Stress test: no History of eating disorders: negative Associated medical conditions: diabetes mellitus and hypertension Associated medications: gabapentin Cardiovascular risk factors: diabetes mellitus and sedentary life style Current Outpatient Medications on File Prior to Visit Medication Sig DULoxetine (CYMBALTA) 60 mg capsule Take 1 capsule by mouth once daily. buPROPion XL (WELLBUTRIN XL) 300 mg 24 hr tablet Take 1 tablet by mouth once daily. metFORMIN (GLUCOPHAGE) 1,000 mg tablet Take 1 tablet by mouth twice daily. lisinopril (ZESTRIL, PRINIVIL) 40 mg tablet Take 1 tablet by mouth once daily. INVOKANA 300 mg tablet Take 1 tablet by mouth once daily. metoprolol succinate ER (TOPROL XL) 100 mg Take 1 tablet by mouth daily at bedtime. ibuprofen (MOTRIN) 600 mg tablet TAKE 1 TAB BY MOUTH EVERY 6 HOURS NEEDED FOR FEVER OR PAIN ergocalciferol 50,000 unit capsule (VITAMIN D2, DRISDOL) Take 1 capsule by mouth one time a week. gabapentin (NEURONTIN) 400 mg capsule Take 1 capsule by mouth twice daily for 30 days. glipiZIDE (GLUCOTROL) 10 mg tablet Take 1 tablet by mouth twice daily before meals. zolpidem (AMBIEN) 10 mg Take 10 mg by mouth daily at bedtime. No current facility-administered medications on file prior to visit. ALLERGIES Allergen Reactions Dihydroaminopryidin* Diarrhea, Hives, Itching, Rash Hydrocodone Hives, Rash Oxycodone-Acetamino* Diarrhea, Rash, Vomiting Sulfa (Sulfonamide * Diarrhea, Rash Sulfamethoxazole-Tr* Diarrhea, Itching, Rash PAST MEDICAL HISTORY Diagnosis Date Anxiety Hypertension PAST SURGICAL HISTORY Procedure Laterality Date SECTION HX x3 HYSTERECTOMY Partial Any problems with anesthesia with the above surgeries: NA FAMILY HISTORY Problem Relation Age of Onset Osteoporosis Mother Hypertension Father Diabetes Father Social History Tobacco Use Smoking status: Former Years: 2.00 Types: Cigarettes Quit date: 2012 Years since quittin.1 Smokeless tobacco: Never Vaping Use Vaping Use: Never used Substance Use Topics Alcohol use: Not Currently Drug use: Never Review of Systems Constitutional: Positive for malaise/fatigue. HENT: Negative for congestion and tinnitus. Eyes: Negative for blurred vision. No glaucoma Respiratory: Negative for shortness of breath. Cardiovascular: Negative for palpitations, orthopnea and leg swelling. Gastrointestinal: Positive for heartburn. Negative for nausea and vomiting. Genitourinary: Negative for dysuria and frequency. No kidney stones Musculoskeletal: P (more content not included)...[facility] 01-10-2023 Nurse Note* Ranjana Casper MA - 01/10/2023 9:13 AM EST Neck: 16.5 inches Waist: 60 inches Body Type: Standard Gender: female Age: 37 Height: 6' 0 Clothes Weight: 3 lb Weight: 326.8 lb Body Fat %: 47.9% Body Fat Mass: 156.6 lb Fat-Free Mass FFM: 170.2 lb Muscle Mass: 161.6 lb Muscle %: 49.4% Total Body Water (TBW): 108.2 lb Total Body Water (TBW) %: 33.1% Bone Mass: 8.6 lb Basal Metabolic Rate (BMR): 49498 kJ / 2462 kcal Metabolic Age: 52 Visceral Fat Ratin Body Mass Index (BMI): 44.3 [place] Body Weight: 162.2 lb Degree of Obesity: 101.5% Ranjana Casper MA [facility] Inst[facility]* Patient Instructions* Fela Gan MD - 01/10/2023 8:57 AM EST Images from the original note were not included. TRYING TO LOSE WEIGHT? Your Body mass index is 44.32 kg/m . (Target BMI: 19-25) A person with a BMI between 25 and 29.9 is considered overweight A person with a BMI of 30 or greater is considered to be obese SETTING A WEIGHT LOSS GOAL: Last 5 Encounter Wt Readings: Date: Wt: 01/10/2023 148.2 kg (326 lb 12.8 oz) 09/28/2022 147.9 kg (326 lb) 07/18/2022 148.8 kg (328 lb) Lose 10% of body weight over six months, about 1-2 lbs per week LIFESTYLE CHANGES -- The goals of lifestyle changes are to help you change your eating habits, become more active, and be more aware of how much you eat and exercise, helping you to make healthier choices. This can be broken down into three steps: 1. Triggers to eat -- Determining what triggers you to eat involves figuring out what foods you eatand where and when you eat. To figure out what triggers you to eat, keep a record for a few days ofeverything you eat, the places where you eat, how often you eat, and the emotions you were feeling when you ate. For some people, the trigger is related to a certain time of day or night. For others, the trigger is related to a certain place, like sitting at a desk working. 2. Eating -- You can change your eating habits by breaking the chain of events between the trigger for eating and eating itself. There are many ways to do this. For instance, you can: Limit where you eat to a few places (eg, dining room) Restrict the number of utensils (eg, only a fork) used for eating Drink a sip of water between each bite Chew your food a certain number of times Get up and stop eating every few minutes 3. What happens after you eat -- Rewarding yourself for good eating behaviors can help you to develop better habits. This is not a reward for weight loss; instead, it is a reward for changing unhealthy behaviors. Do not use food as a reward. Some people find money, clothing, or personal care (eg, a hair cut, manicure, or massage) to be effective rewards. Treat yourself immediately after making better eating choices to reinforce the value of the good behavior. You need to have clear behavior goals, and you must have a time frame for reaching your goals. Reward small changes along the way to your final goal. Other factors that contribute to successful weight loss -- Establish a kourtney system -- Having a friend or family member available to provide support and reinforce good behavior is very helpful. The support person needs to understand your goals. Learn to be strong -- Learning to be strong when tempted by food is an important part of losing weight. As an example, you will need to learn how to say no and continue to say no when urged to eat at parties and social gatherings. Develop strategies for events before you go, such as eating beforeyou go or taking low- calorie snacks and drinks with you. Develop a support system -- Having a support system is helpful when losing weight. This is why manycommercial groups are successful. Family support is also essential; if your family does not supportyour efforts to lose weight, this can slow your progress or even keep you from losing weight. Positive thinking -- People often have conversations with themselves in their head; these conversations can be positive or negative. If you eat a piece of cake that was not planned, you may respond by thinking, Oh, you stupid idiot, you've blown your diet! and as a result, you may eat more cake. A positive thought for the same event could be, Well, I ate cake when it was not on my plan. Now I should do something to get back on track. A positive approach is much more likely to be successful than a negative one. Reduce stress -- Although stress is a part of everyday life, it can trigger uncontrolled eating in some people. It is important to find a way to get through these difficult times without eating or byeating low-calorie food, like raw vegetables. It may be helpful to imagine a relaxing place that allows you to temporarily escape from stress. With deep breaths and closed eyes, you can imagine this relaxing place for a few minutes. Self-help programs -- Self-help programs like Weight Watchers , Overeaters Anonymous , and Take OffPounds Sensibly (TOPS) work for some people. As with all weight loss programs, you are most likely to be successful with these plans if you make long-term changes in how you eat. CHOOSING A DIET -- A calorie is a unit of energy found in food. Your body needs calories to function. The goal of any diet is to burn up more calories than you eat. How quickly you lose weight depends upon several factors, such as your age, gender, and starting weight. Older people have a slower metabolism than young people, so they lose weight more slowly. Men lose more weight than women of similar height and weight when dieting because they use more energy. People who are extremely overweight lose weight more quickly than those who are only mildly overweight. How many calories do I need? -- You can estimate the number of calories you need per day based uponyour current (or target) weight, gender, and activity level for women and for men. In general, it is best to choose foods that contain enough protein, carbohydrates, essential fatty acids, and vitamins. Try not to drink alcohol or drinks with added sugar, and most sweets (candy, cakes, cookies), sincethey rarely contain important nutrients. Portion-controlled diets -- One simple way to diet is to buy packaged foods, like frozen low-calorie meals or meal-replacement canned drinks. A typical meal plan for 1000 to 1500 calories per day mayinclude: A meal-replacement drink or breakfast bar for breakfast A meal-replacement drink or a frozen low-calorie (250 to 350 calories) meal for lunch A frozen low-calorie meal or other prepackaged, calorie-controlled meal, along with extra vegetables for dinner Low-fat diet -- To reduce the amount of fat in your diet, you can: Eat low-fat foods. Low-fat foods are those that contain less than 30 percent of calories from fat. Fat is listed on the food facts label Count fat grams. For a 1500 calorie diet, this would mean about 45 g or fewer of fat per day. Low-carbohydrate diet -- Low- and yeei-jin-setvfnebjdnr diets (eg, Atkins diet, [place] diet) have become popular ways to lose weight quickly. With a amxy-mnt-bkvodorzwarg diet, you eat between 0 and 60 grams of carbohydrates per day (a standard diet contains 200 to 300 grams of carbohydrates) With a low-carbohydrate diet, you eat between 60 and 130 grams of carbohydrates per day Carbohydrates are found in fruits, vegetables, and grains (including breads, rice, pasta, and cereal), alcoholic beverages, and in dairy products. Meat and fish do not contain carbohydrates. Side effects of pvvf-wys-mgwaaonwpsdx diets can include constipation, headache, bad breath, muscle cramps, diarrhea, and weakness. Mediterranean diet -- The term Mediterranean diet refers to a way of eating that is common in olive-growing regions around the [place]. Although there is some variation in Mediterranean diets, there are some similarities. Most Mediterranean diets include: A high level of monounsaturated fats (from olive or canola oil, walnuts, pecans, almonds) and a lowlevel of saturated fats (from butter) A high amount of vegetables, fruits, legumes, and grains (7 to 10 servings of fruits and vegetablesper day) A moderate amount of milk and dairy products, mostly in the form of cheese. Use low-fat dairy products (skim milk, fat-free yogurt, low-fat cheese). A relatively low amount of red meat and meat products. Substitute fish or poultry for red meat. For those who drink alcohol, a modest amount (mainly as red wine) may help to protect against cardiovascular disease. A modest amount is up to one (4 ounce) glass per day for women and up to two glasses per day for men. Which diet is best? -- No one diet is best for weight loss. Any diet will help you to lose weight if you stick with the diet. Therefore, it is important to choose a diet that includes foods you like. Fad diets -- Fad diets often promise quick weight loss (more than 1 to 2 pounds per week) and may claim that you do not need to exercise or give up favorite foods. Some fad diets cost a lot of money,because you have to pay for seminars or pills. Fad diets generally lack any scientific evidence that they are safe and effective, but instead rely on before and after photos or testimonials. Diets that sound too good to be true usually are. These plans are a waste of time and money and arenot recommended. A doctor, nurse, or creping machine operator helper can help you find a safe and effective way to lose weight and keep it off. Adapted from [facility] My opinion 3 hour Rule: -last meal /snack 3 hours before sleeping ,but mostly try to be done by 7 pm --eat Rich Breakfast, high in protein hard boiled eggs/protein drinks - At least 3 hours break between each meals ,except water --sleep 7 hours at night , that means going to bed early -- drink only water ( no soda or juices) /no Alcohol consumption --cut down on coffee consumption if consuming high amounts Website :You can visit to web site for low carb recipe information as well as visual guide to low carb food: Https://www.dietdoctor.[employer]/ ( visual guide for low carb diet) Limit carb consumption to 80- 100 grams per day. Goals: formal exercise 2-5 x/week as tolerated, start with 10 mins/day to goal of 30 minutes ( -- for exercise, you should shoot for a goal of >150 min per week initially. Depending at whatlevel you are starting, that may seem like an unachievable task. However, the best plan is to just begin to walk or bike or do another activity that you like and track your steps per day. You do not need to pay attention to the time, but you do need to try to increase your exercise every 3 weeks. Other strength exercises, using light weights or training bands may also be useful, especially when combined with regular aerobic exercise. Studies have shown that >200min per week is best to maintain weight loss, so that would be the overall end goal.) Have 3 meals a day-protein source with each meal (structured meal planning) Food journal daily and bring it to all appointments If you want you can REPLACE one of your meals with a liquid meal or frozen meal. This is easy to start and may help with your weight. 1. Liquid meal replacement (Boost, Ensure) 2. Frozen meal (Healthy Choice, Lean Cuisine - sodium under 650mg, can always add veggies to the meal) 3. Powdered protein (Premier Protein) or meal replacement (I like a plant based meal replacement called Healthy [employer] Nutrition - can mix w froz berries and almond milk) -- IN GENERAL - suggestions based on important of our sleep cycle called circadian rhythm and its influence on our gut microbiota and overall health tragetory 1) EAT MOST OF YOUR FOOD IN AM AND EARLY PM 2) NO EATING AT NIGHT 3) EXERCISE DURING DAY 4) BE CONSISTENT WITH MEAL STRUCTURE ie Meals at same time during the day. -- keep record of your food intake - it is easier for us to understand your eating habits and food preferences, looking into the amounts of protein, carbs, and fat in your diet. Good examples of appsto track calories are [employer], LOSE IT. Some patient have found FOODUCATE to help with decisions around food, however choose apps that best suits you. TIRZEPATIDE (MOUNJARO) Tirzepatide (Mounjaro) is a new combination drug (mimics 2 gut hormones, GLP1 and GIP) which has demonstrated superior weight loss >20% body wt loss after 72 week randomized controlled study. It'sonly approved for diabetes currently, but likely will have approval for weight/obesity next year. Below is more information on it as we discussed. Tirzepatide delays gastric emptying and has the potential to alter absorption of oral medications. This is important in patients taking narrow therapeutic index drugs or drugs that need a minimum blood level for efficacy. If you are taking oral contraceptives switch to a non-oral contraceptive method or add a barrier contraceptive method for 4 weeks after initiation of tirzepatide and for 4 weeks after each dose escalation. Video Instructions for Injecting Mounjaro: https://www.youtube.com/watch?v=nxnhBdyTSZ0 Savings Card: https://www.[employer]/savings-resources Link to Professor Of Food Biochemistry Website [employer] Medication Guide: https://pi.marly.com/us/irmbjixb-te-lp.pdf?s=mg Written pen instructions: https://uspl.marly.com/mounjaro/mounjaro.html#ug0 Tirzepatide: Patient drug information What is Mounjaro? Mounjaro is an injectable prescription medicine that is used along with diet and exercise to improve blood sugar (glucose) in adults with type 2 diabetes mellitus. It is not known if Mounjaro can be used in people who have had inflammation of the pancreas (pancreatitis). Mounjaro is not for use in people with type 1 diabetes. It is not known if Mounjaro is safeand effective for use in children under 18 years of age. It works in multiple ways. It helps: - THE BODY RELEASE INSULIN WHEN BLOOD SUGAR IS HIGH - THE BODY REMOVE EXCESS SUGAR FROM THE BLOOD - STOP THE LIVER FROM MAKING AND RELEASING TOO MUCH SUGAR - REDUCE HOW MUCH FOOD IS EATEN - SLOW DOWN HOW QUICKLY FOOD LEAVES THE STOMACH. THIS LESSENS OVER TIME. You can learn about possible side effects of Mounjaro here. Select Safety Information Changes in vision. Tell your healthcare provider if you have changes in vision during treatment with Mounjaro PURPOSE AND SAFETY SUMMARY WITH WARNINGS Important Facts About Mounjaro (qffw-ABOH-FX). It is also known as tirzepatide. Mounjaro is an injectable prescription medicine for adults with type 2 diabetes used along with diet and exercise to improve blood sugar (glucose). It is not known if Mounjaro can be used in people who have had inflammation of the pancreas (pancreatitis). Mounjaro is not for use in people with type 1 diabetes. It is not known if Mounjaro is safeand effective for use in children under 18 years of age. Warnings Mounjaro may cause tumors in the thyroid, including thyroid cancer. Watch for possible symptoms, such as a lump or swelling in the neck, hoarseness, trouble swallowing, or shortness of breath. If youhave a symptom, tell your healthcare provider. Do not use Mounjaro if you or any of your family have ever had a type of thyroid cancer called medullary thyroid carcinoma (MTC). Do not use Mounjaro if you have Multiple Endocrine Neoplasia syndrome type 2 (MEN 2). Do not use Mounjaro if you are allergic to tirzepatide or any of the ingredients in Mounjaro. Mounjaro may cause serious side effects, including: Inflammation of the pancreas (pancreatitis). Stop using Mounjaro and call your healthcare provider right away if you have severe pain in your stomach area (abdomen) that will not go away, with or without vomiting. You may feel the pain from your abdomen to your back. Low blood sugar (hypoglycemia). Your risk for getting low blood sugar may be higher if you use Mounjaro with another medicine that can cause low blood sugar, such as a sulfonylurea or insulin. Signs and symptoms of low blood sugar may include dizziness or light-headedness, sweating, confusion or drowsiness, headache, blurred vision, slurred speech, shakiness, fast heartbeat, anxiety, irritability, or mood changes, hunger, weakness and feeling jittery. Serious allergic reactions. Stop using Mounjaro and get medical help right away if you have any symptoms of a serious allergic reaction, including swelling of your face, lips, tongue or throat, problems breathing or swallowing, severe rash or itching, fainting or feeling dizzy, and very rapid heartbeat. Kidney problems (kidney failure). In people who have kidney problems, diarrhea, nausea, and vomiting may cause a loss of fluids (dehydration), which may cause kidney problems to get worse. It is important for you to drink fluids to help reduce your chance of dehydration. Severe stomach problems. Stomach problems, sometimes severe, have been reported in people who use Mounjaro. Tell your healthcare provider if you have stomach problems that are severe or will not go away. Changes in vision. Tell your healthcare provider if you have changes in vision during treatment with Mounjaro. Gallbladder problems. Gallbladder problems have happened in some people who use Mounjaro. Tell yourhealthcare provider right away if you get symptoms of gallbladder problems, which may include pain in your upper stomach (abdomen), fever, yellowing of skin or eyes (jaundice), and mark-colored stools. Common side effects The most common side effects of Mounjaro include nausea, diarrhea, decreased appetite, vomiting, constipation, indigestion, and stomach (abdominal) pain. These are not all the possible side effects of Mounjaro. Talk to your healthcare provider about any side effect that bothers you or doesn't go away. Tell your healthcare provider if you have any side effects. You can report side effects at 1-276-PAU-8520 or www.fda.gov/medwatch. Before using Your healthcare provider should show you how to use Mounjaro before you use it for the first time. Before you use Mounjaro, talk to your healthcare provider about low blood sugar and how to manage it. Review these questions with your healthcare provider: Do you have other medical conditions, including problems with your pancreas or kidneys, or severe problems with your stomach, such as slowed emptying of your stomach (gastroparesis) or problems digesting food? Do you take other diabetes medicines, such as insulin or sulfonylureas? Do you have a history of diabetic retinopathy? Are you or plan to become or or plan to breastfeed? It is not knownif Mounjaro will harm your unborn baby. Do you take control pills by mouth? These may not work as well while using Mounjaro. Your healthcare provider may recommend another type of control when you start Mounjaro or when you increase your dose. Do you take any other prescription medicines or jbra-qlf-yxrryhl drugs, vitamins, or herbal supplements? How to take Read the Instructions for Use that come with Mounjaro. Use Mounjaro exactly as your healthcare provider says. Mounjaro is injected under the skin (subcutaneously) of your stomach (abdomen), thigh, or upper arm. Use Mounjaro 1 time each week, at any time of the day. Do not mix insulin and Mounjaro together in the same injection. If you take too much Mounjaro, call your healthcare provider or seek medical advice promptly. Learn more For more information, call 5-301-EmvwjEd ( ) or go to www.[employer]. This information does not take the place of talking with your healthcare provider. Be sure to talk to your healthcare provider about Mounjaro and how to take it. Your healthcare provider is the best person to help you decide if Mounjaro is right for you. Mounjaro and its delivery device base are trademarks owned or licensed by [employer], its subsidiaries, or affiliates. YUSUF VIERA [employer] [id number] Access eyeQ Online for additional drug information, tools, and databases. Copyright 1135-6053 [employer]. All rights reserved. Contributor Disclosures (For additional information see Tirzepatide: Drug information ) You must carefully read the Consumer Information Use and Disclaimer below in order to understand and correctly use this information. Brand Names: [place] Mounjaro Warning This drug has been shown to cause thyroid cancer in some animals. It is not known if this happens in humans. If thyroid cancer happens, it may be deadly if not found and treated early. Call your doctor right away if you have a neck mass, trouble breathing, trouble swallowing, or have hoarseness that will not go away. Do not use this drug if you have a health problem called Multiple Endocrine Neoplasia syndrome type2 (MEN 2), or if you or a family member have had thyroid cancer. Have your blood work checked and thyroid ultrasounds as you have been told by your doctor. What is this drug used for? It is used to lower blood sugar in patients with high blood sugar (diabetes). What do I need to tell my doctor BEFORE I take this drug? If you are allergic to this drug; any part of this drug; or any other drugs, foods, or substances. Tell your doctor about the allergy and what signs you had. If you have type 1 diabetes. Do not use this drug to treat type 1 diabetes. If you have ever had pancreatitis. If you have stomach or bowel problems. This is not a list of all drugs or health problems that interact with this drug. Tell your doctor and pharmacist about all of your drugs (prescription or OTC, natural products, vitamins) and health problems. You must check to make sure that it is safe for you to take this drug with all of your drugs and health problems. Do not start, stop, or change the dose of any drug withoutchecking with your doctor. What are some things I need to know or do while I take this drug? Tell all of your health care providers that you take this drug. This includes your doctors, nurses,pharmacists, and dentists. Wear disease medical alert ID (identification). Follow the diet and workout plan that your doctor told you about. Check your blood sugar as you have been told by your doctor. Do not drive if your blood sugar has been low. There is a greater chance of you having a crash. control pills may not work as well to prevent . If you take control pills, youmay need to switch to another type of hormone-based control like a vaginal ring if your doctor tells you to. If another type of hormone-based control is not an option, use some other kindof control also, like a condom. Do this for 4 weeks after starting this drug and for 4 weeks each time the dose is raised. This drug may prevent other drugs taken by mouth from getting into the body. If you take other drugs by mouth, you may need to take them at some other time than this drug. Talk with your doctor. It may be harder to control blood sugar during times of stress such as fever, infection, injury, orsurgery. A change in physical activity, exercise, or diet may also affect blood sugar. Talk with your doctor before you drink alcohol. Do not share with another person even if the needle has been changed. Sharing your tray or pen may pass infections from one person to another. This includes infections you may not know you have. If you cannot drink liquids by mouth or if you have upset stomach, throwing up, or diarrhea that does not go away; you need to avoid getting dehydrated. Contact your doctor to find out what to do. Dehydration may lead to new or worse kidney problems. A severe and sometimes deadly pancreas problem (pancreatitis) has happened with other drugs like this one. Tell your doctor if you are , plan on getting , or are breast- feeding. You will need to talk about the benefits and risks to you and the baby. What are some side effects that I need to call my doctor about right away? WARNING/CAUTION: Even though it may be rare, some people may have very bad and sometimes deadly side effects when taking a drug. Tell your doctor or get medical help right away if you have any of thefollowing signs or symptoms that may be related to a very bad side effect: Signs of an allergic reaction, like rash; hives; itching; red, swollen, blistered, or peeling skin with or without fever; wheezing; tightness in the chest or throat; trouble breathing, swallowing, ortalking; unusual hoarseness; or swelling of the mouth, face, lips, tongue, or throat. Signs of kidney problems like unable to pass urine, change in how much urine is passed, blood in the urine, or a big weight gain. Signs of gallbladder problems like pain in the upper right belly area, right shoulder area, or between the shoulder blades; yellow skin or eyes; fever with chills; bloating; or very upset stomach or throwing up. Signs of a pancreas problem (pancreatitis) like very bad stomach pain, very bad back pain, or very bad upset stomach or throwing up. Dizziness or passing out. A fast heartbeat. Change in eyesight. Low blood sugar can happen. The chance may be raised when this drug is used with other drugs for diabetes. Signs may be dizziness, headache, feeling sleepy or weak, shaking, fast heartbeat, confusion, hunger, or sweating. Call your doctor right away if you have any of these signs. Follow what you have been told to do for low blood sugar. This may include taking glucose tablets, liquid glucose, or some fruit juices. What are some other side effects of this drug? All drugs may cause side effects. However, many people have no side effects or only have minor sideeffects. Call your doctor or get medical help if any of these side effects or any other side effects bother you or do not go away: Constipation, diarrhea, stomach pain, upset stomach, throwing up, or feeling less hungry. Heartburn. These are not all of the side effects that may occur. If you have questions about side effects, call your doctor. Call your doctor for medical advice about side effects. You may report side effects to your national health agency. How is this drug best taken? Use this drug as ordered by your doctor. Read all information given to you. Follow all instructionsclosely. It is given as a shot into the fatty part of the skin on the top of the thigh, belly area, or upperarm. If you will be giving yourself the shot, your doctor or nurse will teach you how to give the shot. Keep taking this drug as you have been told by your doctor or other health care provider, even if you feel well. Take the same day each week. Move site where you give the shot each time. Take with or without food. Wash your hands before and after use. Do not use if the solution is leaking or has particles. This drug is colorless to a faint yellow. Do not use if the solution changes color. If you are also using insulin, you may inject this drug and the insulin in the same area of the body but not right next to each other. Do not mix this drug in the same syringe with insulin. Do not move this drug from the pen to a syringe. Each pen is for one use only. Throw away any part of the used pen after the dose is given. Throw away needles in a needle/sharp disposal box. Do not reuse needles or other items. When the box is full, follow all local rules for getting rid of it. Talk with a doctor or pharmacist if you have any questions. What do I do if I miss a dose? If it is within 4 days after the missed dose, take the missed dose and go back to your normal day. If it has been more than 4 days since the missed dose, skip the missed dose and go back to your normal day. Do not take 2 doses at the same time or extra doses. How do I store and/or throw out this drug? Store in a refrigerator. Do not freeze. Do not use if it has been frozen. If needed, each pen may be stored at room temperature for up to 21 days. If you store at room temperature, throw away any part not used after 21 days. Protect from heat. Store in the original container to protect from light. Keep all drugs in a safe place. Keep all drugs out of the reach of children and pets. Throw away unused or drugs. Do not flush down a toilet or pour down a drain unless you are told to do so. Check with your pharmacist if you have questions about the best way to throw out drugs. There may be drug take-back programs in your area. General drug facts If your symptoms or health problems do not get better or if they become worse, call your doctor. Do not share your drugs with others and do not take anyone else's drugs. Some drugs may have another patient information leaflet. If you have any questions about this drug,please talk with your doctor, nurse, pharmacist, or other health care provider. If you think there has been an overdose, call your poison control center or get medical care right away. Be ready to tell or show what was taken, how much, and when it happened. Last Reviewed [id number] Consumer Information Use and Disclaimer This generalized information is a limited summary of diagnosis, treatment, and/or medication information. It is not meant to be comprehensive and should be used as a tool to help the user understand and/or assess potential diagnostic and treatment options. It does NOT include all information about conditions, treatments, medications, side effects, or risks that may apply to a specific patient. Itis not intended to be medical advice or a substitute for the medical advice, diagnosis, or treatment of a health care provider based on the health care provider's examination and assessment of a patient's specific and unique circumstances. Patients must speak with a health care provider for complete information about their health, medical questions, and treatment options, including any risks or benefits regarding use of medications. This information does not endorse any treatments or medications as safe, effective, or approved for treating a specific patient. [employer] and its affiliatesdisclaim any warranty or liability relating to this information or the use thereof. The use of thisinformation is governed by the Terms of Use, available at https://www.[employer].com/en/know/bbilbvzj-qdjpdyytnbyai-fzwci. - Rx metformin, risks and benefits discussed at length. The pt understands the potential side effects (including gastrointestinal problems) and is instructed to increase the dose as tolerated. documented in this encounterSalem [facility]14-[facility] History of Present illness Narrative* Fela Gan MD - 01/10/2023 8:18 AM EST Images from the original note were not included. Fela Gna MD [facility] [address] [place] [address], [facility] [address] - [address] [place] [phone] SUBJECTIVE: Cindy Wright is a 37 year old female with DM2/ HTN of presents on January 10, 2023 for medicalevaluation of Non-Surgical Metabolic Weight Management . Discussed extensively regarding bariatric surgery option but patient is interested interested in bariatric surgery. Age at onset - early adult years. Rate of weight gain is described as gradual over years. Has gained >150 lbs in past 18 years Family history positive for obesity in the patient s patient. She considers ideal weight to be 200/ 180 lbs . Previous treatments include self-directed dieting, Weight Watchers, TOPS, or similar program, and gym . Lifestyle Factors: Diet: Do you think that you have a healthy diet? No. Overall characterization of present diet:Unstructured and not making the best choice/ use to drink diet drink. /diet power drinks . How have you tried to lose weight in the past? Yes. Routine Portion is a big issue Power drinks Here and there tea / cofffee [place] juice Breakfast: 6:30 am : drive through [place] / egg /biscuit meal s Snacks: Lunch: - eating out but now trying to pack her lunch Snack:not usually Dinner: fast food but trying to pack Snack: No Bedtime Sleeps: 5-8 pm Wake up:5 am Exercise: Do you exercise ? No Are you able to walk up a flight of stairs or a small hill? Yes Patient's functional capacity is >4 METS. The composite complication rate of , unstable angina, CO, DVT, PE, renal failure, and stroke occurred in 16.6% of severely obese patients whose peak oxygen consumption was < 15.8 mL/kg/min but in only 2.8% of those whose cardiorespiratory fitness was >/= 15.8 mL/kg/min. By convention, 1 MET is considered equivalent to the consumption of 3.5 ml O2 kg-1 min-1 (or 3.5 ml of oxygen per kilogram of body mass per minute) and is roughly equivalent to the expenditure of 1 kcal per kilogram of body weight per hour. Sleep: Duration: > 6 hours:Yes Sleep apnea screen: Sleep study was neg Chest pain, SOB, or CHRISTINE: No Stress test: no History of eating disorders: negative Associated medical conditions: diabetes mellitus and hypertension Associated medications: gabapentin Cardiovascular risk factors: diabetes mellitus and sedentary life style Current Outpatient Medications on File Prior to Visit Medication Sig DULoxetine (CYMBALTA) 60 mg capsule Take 1 capsule by mouth once daily. buPROPion XL (WELLBUTRIN XL) 300 mg 24 hr tablet Take 1 tablet by mouth once daily. metFORMIN (GLUCOPHAGE) 1,000 mg tablet Take 1 tablet by mouth twice daily. lisinopril (ZESTRIL, PRINIVIL) 40 mg tablet Take 1 tablet by mouth once daily. INVOKANA 300 mg tablet Take 1 tablet by mouth once daily. metoprolol succinate ER (TOPROL XL) 100 mg Take 1 tablet by mouth daily at bedtime. ibuprofen (MOTRIN) 600 mg tablet TAKE 1 TAB BY MOUTH EVERY 6 HOURS NEEDED FOR FEVER OR PAIN ergocalciferol 50,000 unit capsule (VITAMIN D2, DRISDOL) Take 1 capsule by mouth one time a week. gabapentin (NEURONTIN) 400 mg capsule Take 1 capsule by mouth twice daily for 30 days. glipiZIDE (GLUCOTROL) 10 mg tablet Take 1 tablet by mouth twice daily before meals. zolpidem (AMBIEN) 10 mg Take 10 mg by mouth daily at bedtime. No current facility-administered medications on file prior to visit. ALLERGIES Allergen Reactions Dihydroaminopryidin* Diarrhea, Hives, Itching, Rash Hydrocodone Hives, Rash Oxycodone-Acetamino* Diarrhea, Rash, Vomiting Sulfa (Sulfonamide * Diarrhea, Rash Sulfamethoxazole-Tr* Diarrhea, Itching, Rash PAST MEDICAL HISTORY Diagnosis Date Anxiety Hypertension PAST SURGICAL HISTORY Procedure Laterality Date SECTION HX x3 HYSTERECTOMY Partial Any problems with anesthesia with the above surgeries: NA FAMILY HISTORY Problem Relation Age of Onset Osteoporosis Mother Hypertension Father Diabetes Father Social History Tobacco Use Smoking status: Former Years: 2.00 Types: Cigarettes Quit date: 2012 Years since quittin.1 Smokeless tobacco: Never Vaping Use Vaping Use: Never used Substance Use Topics Alcohol use: Not Currently Drug use: Never Review of Systems Constitutional: Positive for malaise/fatigue. HENT: Negative for congestion and tinnitus. Eyes: Negative for blurred vision. No glaucoma Respiratory: Negative for shortness of breath. Cardiovascular: Negative for palpitations, orthopnea and leg swelling. Gastrointestinal: Positive for heartburn. Negative for nausea and vomiting. Genitourinary: Negative for dysuria and frequency. No kidney stones Musculoskeletal: Positive for back pain and joint pain. Neurological: Negative for weakness. Psychiatric/Behavioral: The patient does not have insomnia. OBJECTIVE: BP 124/82 (BP Site: Left Arm, BP Position: Sitting, BP Cuff Size: Large Adult) Pulse 92 Ht 182.9 cm (6') Wt (!) 148.2 kg (326 lb 12.8 oz) LMP 10/16/2018 (Approximate) BMI 44.32 kg/m BMI = Body mass index is 44.32 kg/m . Waist circumference 60 Neck circumference 16.5 Physical Exam Constitutional:. --no issues with communication during visit and demonstrates understanding via appropriate interaction, verbalizing understanding ans she consented for this visit visit encounter HEENT: Normocephalic and atraumatic. Eyes: Conjunctiva appear normal. No scleral icterus. Hearing: Is grossly intact. Neck: Range of motion appears normal. Thyroid: appears symmetric and not enlarged. Pulmonary/Chest: Effort normal. Psychiatric: Mood, memory, affect and judgment normal. Neurological: alert and oriented to person, place, and time. ASSESSMENT/PLAN: 1. Class 3 severe obesity with serious comorbidity in adult, unspecified BMI, unspecified obesity type (HCC) - ICD9: 278.01, ICD10: E66.01 (primary diagnosis) Weight increasing - Behavioral and pharmacological intervention --Reviewed medication list recommended to continue metformin. Currently on Invokana for diabetes but has not been taking glipizide. Reviewed labs addendum reviewed the most recent labs with A1c of 8.2. Added Mounjaro if covered through insurance if not we will try other GLP-1 like Ozempic for type 2 diabetes. I have also reviewed he possibility of using weight loss medications in an effort to reduce her appetite. I have reviewed the different therapeutic options available including We have also reviewed the possibility of using on her medications such as metformin which has been also associated with weight loss. We agreed that trying Topiramate, off label and Mounjaro could be her best option at this point. I reviewed with the patient pros and cons of taking this medication. -- Discussed in length regarding lifestyle changes cut down on any sweetened beverages as well as spacing meals. Recommended to get at least 60 to 70 g of protein daily add increased physical activities. Alena agrees with the plan and verbalizes understanding. She is also interested in bariatric surgery a consult has been placed. - CBC - COMP METABOLIC PANEL - HGB A1C - VITAMIN B12 BLOOD - VITAMIN D 25 HYDROXY - LIPID PANEL BASIC - TSH BLD - CONSULT TO BARIATRIC SURGERY - TIRZEPATIDE 2.5 MG/0.5 ML SUBCUTANEOUS PEN INJECTOR - TOPIRAMATE 25 MG TABLET 2. Body mass index 40.0-44.9, adult (HCC) - ICD9: V85.41, ICD10: Z68.41 Weight increasing - Behavioral and pharmacological intervention - CBC - COMP METABOLIC PANEL - HGB A1C - VITAMIN B12 BLOOD - VITAMIN D 25 HYDROXY - LIPID PANEL BASIC - TSH BLD - CONSULT TO BARIATRIC SURGERY - TIRZEPATIDE 2.5 MG/0.5 ML SUBCUTANEOUS PEN INJECTOR - TOPIRAMATE 25 MG TABLET 3. Dietary counseling and surveillance - ICD9: V65.3, ICD10: Z71.3 Reviewed principles of energy metabolism, caloric intake and expenditure, and rationale for treatment program. Also reinforced need for reduced calorie, low fat diet and increased physical activity. - CBC - COMP METABOLIC PANEL - HGB A1C - VITAMIN B12 BLOOD - VITAMIN D 25 HYDROXY - LIPID PANEL BASIC 4. Vitamin D deficiency - ICD9: 268.9, ICD10: E55.9 Continue supplement. 5. Primary hypertension - ICD9: 401.9, ICD10: I10 - good control - Encouraged dietary sodium restriction/DASH diet - Recommended regular aerobic exercise. - Recommend home blood pressure monitoring, to bring results in on next visit - Goal of BP <130/80 - CBC - COMP METABOLIC PANEL - HGB A1C - VITAMIN B12 BLOOD - VITAMIN D 25 HYDROXY - LIPID PANEL BASIC 6. Uncontrolled type 2 diabetes mellitus with hyperglycemia (HCC) - ICD9: 250.02, ICD10: E11.65 poorly controlled - Add Mounjaro if covered through insurance for type 2 diabetes. Currently not on statins discussed role of statins. Patient did not fast today and she wishes to dolipid panel later. I have placed orders again. --She is also interested in bariatric surgery program a consult has been placed. Recommended to complete online seminar. - BP goal of <130/80 - LDL goal of <100 - CONSULT TO BARIATRIC SURGERY - TIRZEPATIDE 2.5 MG/0.5 ML SUBCUTANEOUS PEN INJECTOR - TOPIRAMATE 25 MG TABLET Fela Gan MD Reviewed principles of energy metabolism, caloric intake and expenditure, and rationale for treatment program. Also reinforced need for reduced calorie, low fat diet and increased physical activity. Fela Gan MD History Review: I have reviewed and modified as needed, the following during this visit: Allergies,Past Medical History, Past Surgical History, Past Family History, Past Social History. Counseling Visit 34 minutes for preventive counseling/IBT : including reviewing chart and finishing my notes Screening for obesity completed during initial plan of care. Patient was competent and alert at the time that counseling was provided. 5a's reviewed: Assess- I assessed behavioral health risk/factors affecting --- Asked about/assess behavioral health risk(s) and factors affecting choice of behavior change goals --- somewhat sedentry lifestyle lifestyle -eats out frequently --Lack of exercise --Sugary drinks/soda Severe insulin resistance, uncontrolled type 2 diabetes Advise: clear, specific, personalized behavior change advice. -I gave very clear, specific, and personalized behavior change adviced, including information about personal health harms and benefits. Recommended add 60 to 70 ounces of plain water or lemon water Advised to get at least 60-80 g of protein daily. Next Agree: Agree: Patient agrees with selected appropriate treatment goals and methods to change behavior Assist:provided IBT w self-help, handouts, teaching skills and support Using behavior change techniques with self-help and Counseling in achieving Goals. Also discussed supplementing with adjunctive medical treatments when appropriate. Arrange- follow up scheduled, Handouts given to patient My opinion -- 3 hour Rule -last meal /snack 3 hours before sleeping ,try to be done by 7 pm --eat Rich Breakfast - At Least 3 hours break between each meals ,except water --sleep 7 hours at night , that means going to bed early -- drink only water ( no soda or juices) /no Alcohol consumption --cut down on coffee consumption if consuming high amounts Website :You can visit to web site for low carb recipe information as well as visual guide to low carb food: [employer] Limit carb consumption to 80- 100 grams per day. Goals: formal exercise 2-5 x/week as tolerated, start with 10 mins/day to goal of 30 minutes Have 3 meals a day-protein source with each meal (structured meal planning) Food journal daily and bring it to all appointments -- IN GENERAL - suggestions based on important of our sleep cycle called circadian rhythm and its influence on our gut microbiota and overall health tragetory 1) EAT MOST OF YOUR FOOD IN AM AND EARLY PM 2) NO EATING AT NIGHT 3) EXERCISE DURING DAY 4) BE CONSISTENT WITH MEAL STRUCTURE ie Meals at same time during the day. -- keep record of your food intake - it is easier for us to understand your eating habits and food preferences, looking into the amounts of protein, carbs, and fat in your diet. Good examples of appsto track calories are [employer], LOSE IT. Some patient have found FOODUCATE to help with decisions around food, however choose apps that best suits you. -- for exercise, you should shoot for a goal of >150 min per week initially. Depending at what level you are starting, that may seem like an unachievable task. However, the best plan is to just begin to walk or bike or do another activity that you like and track your steps per day. You do not need to pay attention to the time, but you do need to try to increase your exercise every 3 weeks. Other strength exercises, using light weights or training bands may also be useful, especially when combined with regular aerobic exercise. Studies have shown that >200min per week is best to maintainweight loss, so that would be the overall end goal. -- One option we discussed is to REPLACE one of your meals with a liquid meal or frozen meal. This is easy to start and may help with your weight. 1. Liquid meal replacement (Boost, Ensure) 2. Frozen meal (Healthy Choice, Lean Cuisine - sodium under 650mg, can always add veggies to the meal) 3. Powdered protein (Premier Protein) or meal replacement (I like a plant based meal replacement called [employer] - can mix w froz berries and almond milk) This note was partially generated using [employer] voice recognition system, and there may be some incorrect words, spellings, and punctuation that were not noted in checking the note before saving documented in this encounterSalem [facility] Center02-07-2023 Miscellaneous Notes* Telephone Encounter - Tash Kaur LPN - 01/03/2023 8:52 AM EST Pharmacy faxed requesting the following refill Refill(s) Requested: Requested Prescriptions Pending Prescriptions Disp Refills DULoxetine (CYMBALTA) 60 mg capsule 30 capsule 0 Sig: Take 1 capsule by mouth once daily. buPROPion XL (WELLBUTRIN XL) 300 mg 24 hr tablet 30 tablet 0 Sig: Take 1 tablet by mouth once daily. ALLERGIES Allergen Reactions Dihydroaminopryidin* Diarrhea, Hives, Itching, Rash Hydrocodone Hives, Rash Oxycodone-Acetamino* Diarrhea, Rash, Vomiting Sulfa (Sulfonamide * Diarrhea, Rash Sulfamethoxazole-Tr* Diarrhea, Itching, Rash (home) [phone] (cell) Last Office Visit Date: 09/28/2022 Last Distance Health Visit: Visit date not found Future Appointment: Visit date not found The patients preferred pharmacy has been captured for this encounter? yes Request is for script(s) to be escript to pharmacy. Tash Kaur LPN documented in this encounterSalem [facility] Center02-01-2023 Miscellaneous Notes* Telephone Encounter - Ivett Kaminski LPN - 12/28/2022 12:12 PM EST Pharmacy faxed requesting the following refill Refill(s) Requested: Requested Prescriptions Pending Prescriptions Disp Refills metFORMIN (GLUCOPHAGE) 1,000 mg tablet 60 tablet 1 Sig: Take 1 tablet by mouth twice daily. ALLERGIES Allergen Reactions Dihydroaminopryidin* Diarrhea, Hives, Itching, Rash Hydrocodone Hives, Rash Oxycodone-Acetamino* Diarrhea, Rash, Vomiting Sulfa (Sulfonamide * Diarrhea, Rash Sulfamethoxazole-Tr* Diarrhea, Itching, Rash (home) [phone] (cell) Last Office Visit Date: 09/28/2022 Last [facility] Visit: Visit date not found Future Appointment: Visit date not found The patients preferred pharmacy has been captured for this encounter? yes Request is for script(s) to be faxed to pharmacy. Ivett Kaminski LPN documented in this encounterSalem [facility] Center01-27-2023 Miscellaneous Notes* Telephone Encounter - Britney Sprague LPN - 12/23/2022 11:07 AM EST Attempt made to contact patient to reschedule appointment. Phone went straight to . Mailbox is full. Britney Sprague LPN 12/23/22 11:07 AM * Telephone Encounter - Vida Paniagua - 12/23/2022 10:39 AM EST No Show Documentation Cindy S Page no showed for an appointment on 12/23/2022 with Immanuel Morin MD at 10:20A.M. She was scheduled for back pain. I called and spoke with the patient regarding her missed appointment. Cindy stated the reason that she missed her appointment was because thought appointment was going to be virtual . Resources discussed/offered to patient: to speak with the nurse and reschedule No show determined to be fault of patient: Yes This is the patients first no show in the last 12 months. Patient was rescheduled for patient hung up before able to reschedule appointment. Letter mailed : Yes Is this the Third or Fourth No Show ? No Vida Paniagua December 23, 2022 10:46 AM documented in this encounterSalem [facility] Center01-25-2023 Miscellaneous Notes* Telephone Encounter - No Oconnor LPN - 12/21/2022 2:10 PM EST Pharmacy faxed requesting the following refill Refill(s) Requested: Requested Prescriptions Pending Prescriptions Disp Refills lisinopril (ZESTRIL, PRINIVIL) 40 mg tablet 30 tablet 1 Sig: Take 1 tablet by mouth once daily. ALLERGIES Allergen Reactions Dihydroaminopryidin* Diarrhea, Hives, Itching, Rash Hydrocodone Hives, Rash Oxycodone-Acetamino* Diarrhea, Rash, Vomiting Sulfa (Sulfonamide * Diarrhea, Rash Sulfamethoxazole-Tr* Diarrhea, Itching, Rash (home) [phone] (cell) Last Office Visit Date: 09/28/2022 Last [facility] Health Visit: Visit date not found Future Appointment: Visit date not found The patients preferred pharmacy has been captured for this encounter? yes Request is for script(s) to be escript to pharmacy. No Oconnor LPN documented in this encounterSalem [facility] Center01-11-2023 Miscellaneous Notes* Telephone Encounter - No Oconnor LPN - 12/07/2022 2:28 PM EST Pharmacy faxed requesting the following refill Refill(s) Requested: Requested Prescriptions Pending Prescriptions Disp Refills INVOKANA 300 mg tablet 30 tablet 0 Sig: Take 1 tablet by mouth once daily. ALLERGIES Allergen Reactions Dihydroaminopryidin* Diarrhea, Hives, Itching, Rash Hydrocodone Hives, Rash Oxycodone-Acetamino* Diarrhea, Rash, Vomiting Sulfa (Sulfonamide * Diarrhea, Rash Sulfamethoxazole-Tr* Diarrhea, Itching, Rash (home) [phone] (cell) Last Office Visit Date: 09/28/2022 Last [facility] Visit: Visit date not found Future Appointment: Visit date not found The patients preferred pharmacy has been captured for this encounter? yes Request is for script(s) to be escript to pharmacy. No Oconnor LPN documented in this encounterSalem [facility] Center01-06-2023 Miscellaneous Notes* Telephone Encounter - Josy Escobedo - 12/02/2022 8:16 AM EST Pharmacy faxed requesting the following refill Refill(s) Requested: Requested Prescriptions Pending Prescriptions Disp Refills ibuprofen (MOTRIN) 600 mg tablet buPROPion XL (WELLBUTRIN XL) 300 mg 24 hr tablet 30 tablet 0 Sig: Take 1 tablet by mouth once daily. cyclobenzaprine (FLEXERIL) 10 mg tablet 60 tablet 0 Sig: Take 1 tablet by mouth twice daily as needed. DULoxetine (CYMBALTA) 60 mg capsule 30 capsule 0 Sig: Take 1 capsule by mouth once daily. naproxen (NAPROSYN) 500 mg tablet 60 tablet 0 Sig: Take 1 tablet by mouth twice daily as needed for pain (for pain). Take with food ergocalciferol 50,000 unit capsule (VITAMIN D2, DRISDOL) 12 capsule 0 Sig: Take 1 capsule by mouth one time a week. gabapentin (NEURONTIN) 400 mg capsule 60 capsule 0 Sig: Take 1 capsule by mouth twice daily for 30 days. ALLERGIES Allergen Reactions Dihydroaminopryidin* Diarrhea, Hives, Itching, Rash Hydrocodone Hives, Rash Oxycodone-Acetamino* Diarrhea, Rash, Vomiting Sulfa (Sulfonamide * Diarrhea, Rash Sulfamethoxazole-Tr* Diarrhea, Itching, Rash (home) [phone] (cell) Last Office Visit Date: 09/28/2022 Last [facility] Visit: Visit date not found Future Appointment: Visit date not found The patients preferred pharmacy has been captured for this encounter? yes Request is for script(s) to be escript to pharmacy. Josy Escobedo documented in this encounterSalem [facility] Center12-16-2022 Miscellaneous Notes* Telephone Encounter - Sabra Power LPN - 11/11/2022 1:12 PM EST Patient faxed requesting the following refill Refill(s) Requested: Requested Prescriptions Pending Prescriptions Disp Refills ergocalciferol 50,000 unit capsule (VITAMIN D2, DRISDOL) 12 capsule 0 Sig: Take 1 capsule by mouth one time a week. gabapentin (NEURONTIN) 400 mg capsule 60 capsule 0 Sig: Take 1 capsule by mouth twice daily for 30 days. naproxen (NAPROSYN) 500 mg tablet 60 tablet 0 Sig: Take 1 tablet by mouth twice daily as needed for pain (for pain). Take with food glipiZIDE (GLUCOTROL) 10 mg tablet 60 tablet 1 Sig: Take 1 tablet by mouth twice daily before meals. lisinopril (ZESTRIL, PRINIVIL) 40 mg tablet 30 tablet 1 Sig: Take 1 tablet by mouth once daily. metFORMIN (GLUCOPHAGE) 1,000 mg tablet 60 tablet 1 Sig: Take 1 tablet by mouth twice daily. cyclobenzaprine (FLEXERIL) 10 mg tablet 60 tablet 0 Sig: Take 1 tablet by mouth twice daily as needed. DULoxetine (CYMBALTA) 60 mg capsule 30 capsule 0 Sig: Take 1 capsule by mouth once daily. buPROPion XL (WELLBUTRIN XL) 300 mg 24 hr tablet 30 tablet 0 Sig: Take 1 tablet by mouth once daily. metoprolol succinate ER (TOPROL XL) 100 mg 30 tablet 1 Sig: Take 1 tablet by mouth daily at bedtime. ALLERGIES Allergen Reactions Dihydroaminopryidin* Diarrhea, Hives, Itching, Rash Hydrocodone Hives, Rash Oxycodone-Acetamino* Diarrhea, Rash, Vomiting Sulfa (Sulfonamide * Diarrhea, Rash Sulfamethoxazole-Tr* Diarrhea, Itching, Rash (home) [phone] (cell) Last Office Visit Date: 09/28/2022 Last [facility] Visit: Visit date not found Future Appointment: Visit date not found The patients preferred pharmacy has been captured for this encounter? yes Request is for script(s) to be escript to pharmacy. Sabra Power LPN documented in this encounterSal[facility]12-16-[facility]22 Miscellaneous Notes* Telephone Encounter - Josy Escobedo - 11/11/2022 11:13 AM EST Pharmacy faxed requesting the following refill Refill(s) Requested: Requested Prescriptions Pending Prescriptions Disp Refills naproxen (NAPROSYN) 500 mg tablet 60 tablet 0 Sig: Take 1 tablet by mouth twice daily as needed for pain (for pain). Take with food ALLERGIES Allergen Reactions Dihydroaminopryidin* Diarrhea, Hives, Itching, Rash Hydrocodone Hives, Rash Oxycodone-Acetamino* Diarrhea, Rash, Vomiting Sulfa (Sulfonamide * Diarrhea, Rash Sulfamethoxazole-Tr* Diarrhea, Itching, Rash (home) [phone] (cell) Last Office Visit Date: 09/28/2022 Last [facility] Health Visit: Visit date not found Future Appointment: Visit date not found The patients preferred pharmacy has been captured for this encounter? yes Request is for script(s) to be escript to pharmacy. Josy Escobedo documented in this encounterSalem [facility] Center12-16-2022 Miscellaneous Notes* Telephone Encounter - Josy Escobedo - 11/11/2022 10:13 AM EST Pharmacy faxed requesting the following refill Refill(s) Requested: Requested Prescriptions Pending Prescriptions Disp Refills gabapentin (NEURONTIN) 400 mg capsule 60 capsule 0 Sig: Take 1 capsule by mouth twice daily for 30 days. INVOKANA 300 mg tablet 30 tablet 0 Sig: Take 1 tablet by mouth once daily. ALLERGIES Allergen Reactions Dihydroaminopryidin* Diarrhea, Hives, Itching, Rash Hydrocodone Hives, Rash Oxycodone-Acetamino* Diarrhea, Rash, Vomiting Sulfa (Sulfonamide * Diarrhea, Rash Sulfamethoxazole-Tr* Diarrhea, Itching, Rash (home) [phone] (cell) Last Office Visit Date: 09/28/2022 Last [facility] Visit: Visit date not found Future Appointment: Visit date not found The patients preferred pharmacy has been captured for this encounter? yes Request is for script(s) to be escript to pharmacy. Josy Escobedo documented in this encounterSalem [facility] Center12-15-2022 Miscellaneous Notes* Telephone Encounter - Sabra Power LPN - 11/10/2022 9:57 AM EST Pharmacy faxed requesting the following refill Refill(s) Requested: Requested Prescriptions Pending Prescriptions Disp Refills metoprolol succinate ER (TOPROL XL) 100 mg 30 tablet 1 Sig: Take 1 tablet by mouth daily at bedtime. ALLERGIES Allergen Reactions Dihydroaminopryidin* Diarrhea, Hives, Itching, Rash Hydrocodone Hives, Rash Oxycodone-Acetamino* Diarrhea, Rash, Vomiting Sulfa (Sulfonamide * Diarrhea, Rash Sulfamethoxazole-Tr* Diarrhea, Itching, Rash (home) [phone] (cell) Last Office Visit Date: 09/28/2022 Last [facility] Visit: Visit date not found Future Appointment: Visit date not found The patients preferred pharmacy has been captured for this encounter? yes Request is for script(s) to be escript to pharmacy. Sabra Power LPN documented in this encounterSalem [facility] Center12-12-2022 Miscellaneous Notes* Telephone Encounter - Josy Escobedo - 11/07/2022 1:49 PM EST Pharmacy faxed requesting the following refill Refill(s) Requested: Requested Prescriptions Pending Prescriptions Disp Refills buPROPion XL (WELLBUTRIN XL) 300 mg 24 hr tablet 30 tablet 0 Sig: Take 1 tablet by mouth once daily. ALLERGIES Allergen Reactions Dihydroaminopryidin* Diarrhea, Hives, Itching, Rash Hydrocodone Hives, Rash Oxycodone-Acetamino* Diarrhea, Rash, Vomiting Sulfa (Sulfonamide * Diarrhea, Rash Sulfamethoxazole-Tr* Diarrhea, Itching, Rash (home) [phone] (cell) Last Office Visit Date: 09/28/2022 Last [facility] Visit: Visit date not found Future Appointment: Visit date not found The patients preferred pharmacy has been captured for this encounter? yes Request is for script(s) to be escript to pharmacy. Josy Escobedo documented in this encounterSalem [facility] Center12-07-2022 Miscellaneous Notes* Telephone Encounter - Josy Escobedo - 11/02/2022 3:54 PM EST Pharmacy faxed requesting the following refill Refill(s) Requested: Requested Prescriptions Pending Prescriptions Disp Refills DULoxetine (CYMBALTA) 60 mg capsule 30 capsule 0 Sig: Take 1 capsule by mouth once daily. ALLERGIES Allergen Reactions Dihydroaminopryidin* Diarrhea, Hives, Itching, Rash Hydrocodone Hives, Rash Oxycodone-Acetamino* Diarrhea, Rash, Vomiting Sulfa (Sulfonamide * Diarrhea, Rash Sulfamethoxazole-Tr* Diarrhea, Itching, Rash (home) [phone] (cell) Last Office Visit Date: 09/28/2022 Last [facility] Visit: Visit date not found Future Appointment: Visit date not found The patients preferred pharmacy has been captured for this encounter? yes Request is for script(s) to be escript to pharmacy. Josy Escobedo documented in this encounterSalem [facility] Center12-07-2022 Miscellaneous Notes* Telephone Encounter - Josy Escobedo - 11/02/2022 3:40 PM EST Pharmacy faxed requesting the following refill Refill(s) Requested: Requested Prescriptions Pending Prescriptions Disp Refills cyclobenzaprine (FLEXERIL) 10 mg tablet 14 tablet 0 Sig: Take 1 tablet by mouth twice daily as needed for up to 7 days. ALLERGIES Allergen Reactions Dihydroaminopryidin* Diarrhea, Hives, Itching, Rash Hydrocodone Hives, Rash Oxycodone-Acetamino* Diarrhea, Rash, Vomiting Sulfa (Sulfonamide * Diarrhea, Rash Sulfamethoxazole-Tr* Diarrhea, Itching, Rash (home) [phone] (cell) Last Office Visit Date: 09/28/2022 Last [facility] Visit: Visit date not found Future Appointment: Visit date not found The patients preferred pharmacy has been captured for this encounter? yes Request is for script(s) to be escript to pharmacy. Josy Escobedo documented in this encounterSalem [facility] Center11-28-2022 Miscellaneous Notes* Telephone Encounter - No Oconnor LPN - 10/24/2022 9:23 AM EST Pharmacy faxed requesting the following refill Refill(s) Requested: Requested Prescriptions Pending Prescriptions Disp Refills glipiZIDE (GLUCOTROL) 10 mg tablet 60 tablet 1 Sig: Take 1 tablet by mouth twice daily before meals. lisinopril (ZESTRIL, PRINIVIL) 40 mg tablet 30 tablet 1 Sig: Take 1 tablet by mouth once daily. metFORMIN (GLUCOPHAGE) 1,000 mg tablet 60 tablet 1 Sig: Take 1 tablet by mouth twice daily. ALLERGIES Allergen Reactions Dihydroaminopryidin* Diarrhea, Hives, Itching, Rash Hydrocodone Hives, Rash Oxycodone-Acetamino* Diarrhea, Rash, Vomiting Sulfa (Sulfonamide * Diarrhea, Rash Sulfamethoxazole-Tr* Diarrhea, Itching, Rash (home) [phone] (cell) Last Office Visit Date: 09/28/2022 Last [facility] Visit: Visit date not found Future Appointment: Visit date not found The patients preferred pharmacy has been captured for this encounter? yes Request is for script(s) to be escript to pharmacy. No Oconnor LPN documented in this encounterSalem [facility] Center11-16-2022 Miscellaneous Notes* Telephone Encounter - Tash Kaur LPN - 10/12/2022 2:24 PM EST Pharmacy faxed requesting the following refill Refill(s) Requested: Requested Prescriptions Pending Prescriptions Disp Refills metoprolol succinate ER (TOPROL XL) 100 mg 30 tablet 1 Sig: Take 1 tablet by mouth daily at bedtime. ALLERGIES Allergen Reactions Dihydroaminopryidin* Diarrhea, Hives, Itching, Rash Hydrocodone Hives, Rash Oxycodone-Acetamino* Diarrhea, Rash, Vomiting Sulfa (Sulfonamide * Diarrhea, Rash Sulfamethoxazole-Tr* Diarrhea, Itching, Rash (home) [phone] (cell) Last Office Visit Date: 09/28/2022 Last [facility] Visit: Visit date not found Future Appointment: Visit date not found The patients preferred pharmacy has been captured for this encounter? yes Request is for script(s) to be escript to pharmacy. Tash Kaur LPN documented in this encounterSalem [facility] Center11-16-2022 Miscellaneous Notes* Telephone Encounter - Tash Kaur LPN - 10/12/2022 2:18 PM EST Pharmacy faxed requesting the following refill Refill(s) Requested: Requested Prescriptions Pending Prescriptions Disp Refills buPROPion XL (WELLBUTRIN XL) 300 mg 24 hr tablet 30 tablet 0 Sig: Take 1 tablet by mouth once daily. ALLERGIES Allergen Reactions Dihydroaminopryidin* Diarrhea, Hives, Itching, Rash Hydrocodone Hives, Rash Oxycodone-Acetamino* Diarrhea, Rash, Vomiting Sulfa (Sulfonamide * Diarrhea, Rash Sulfamethoxazole-Tr* Diarrhea, Itching, Rash (home) [phone] (cell) Last Office Visit Date: 09/28/2022 Last [facility] Visit: Visit date not found Future Appointment: Visit date not found The patients preferred pharmacy has been captured for this encounter? yes Request is for script(s) to be escript to pharmacy. Tash Kaur LPN documented in this encounterSalem [facility] Center11-11-2022 Miscellaneous Notes* Telephone Encounter - Josy Escobedo - 10/07/2022 9:47 AM EST Pharmacy faxed requesting the following refill Refill(s) Requested: Requested Prescriptions Pending Prescriptions Disp Refills DULoxetine (CYMBALTA) 60 mg capsule 30 capsule 0 Sig: Take 1 capsule by mouth once daily. ALLERGIES Allergen Reactions Dihydroaminopryidin* Diarrhea, Hives, Itching, Rash Hydrocodone Hives, Rash Oxycodone-Acetamino* Diarrhea, Rash, Vomiting Sulfa (Sulfonamide * Diarrhea, Rash Sulfamethoxazole-Tr* Diarrhea, Itching, Rash (home) [phone] (cell) Last Office Visit Date: 09/28/2022 Last [facility] Visit: Visit date not found Future Appointment: Visit date not found The patients preferred pharmacy has been captured for this encounter? yes Request is for script(s) to be escript to pharmacy. Josy Escobedo documented in this [facility]11-04-2022 Miscellaneous Notes* Telephone Encounter - Anjel Cruz - 09/30/2022 10:26 AM EDT 09/29/2022: Patient is scheduled with Narda on 01/10/2023. Confirmation #[id number] documented in this [facility]11-03-2022 Miscellaneous Notes* Telephone Encounter - Anjel Cruz - 09/29/2022 9:24 AM EDT Referral to Bariatric Surgery entered into the [facility] portal on 09/29/2022. Confirmation number [id number]. documented in this [place] [address]-03-2022 Miscellaneous Notes* Telephone Encounter - Anjel Cruz - 09/29/2022 9:15 AM EDT Referral to Obstetrics & Gynecology entered into the [facility] portal on 09/29/2022. Confirmation number [id number]. documented in this encounterSalem [facility] Center11-02-2022 Miscellaneous Notes* Telephone Encounter - Josy Escobedo - 09/28/2022 1:35 PM EDT Pharmacy faxed requesting the following refill Refill(s) Requested: Requested Prescriptions Pending Prescriptions Disp Refills gabapentin (NEURONTIN) 400 mg capsule 60 capsule 0 Sig: Take 1 capsule by mouth twice daily for 30 days. ALLERGIES Allergen Reactions Dihydroaminopryidin* Diarrhea, Hives, Itching, Rash Hydrocodone Hives, Rash Oxycodone-Acetamino* Diarrhea, Rash, Vomiting Sulfa (Sulfonamide * Diarrhea, Rash Sulfamethoxazole-Tr* Diarrhea, Itching, Rash (home) [phone] (cell) Last Office Visit Date: 09/28/2022 Last [facility] Visit: Visit date not found Future Appointment: Visit date not found The patients preferred pharmacy has been captured for this encounter? yes Request is for script(s) to be escript to pharmacy. Josy Escobedo documented in this encounterSalem [facility] Center11-02-2022 History of Present illness Narrative* Angelo Can MD - 09/28/2022 11:08 AM EDT Attending Note I discussed with resident. The patient was not seen or examined by the attending. I reviewed the resident's note. I agree with the resident's assessment and plan unless otherwise noted. Signature: Angelo Can MD Date: 09/28/2022. Time: 11:08 AM * Yesy Fernandez DO - 09/28/2022 10:20 AM EDT Images from the original note were not included. [facility] Yesy Fernandez DO ASSESSMENT/PLAN: 1. Type 2 diabetes mellitus without complication, without long-term current use of insulin (HCC) - ICD9: 250.00, ICD10: E11.9 (primary diagnosis) - A1c was 8.6% when she established with me in the office in 06/2022, right after moving to [place] [and did not have her medications for one month at that time] - Continue metformin 1000mg BID, glipizide 10mg daily, and invokana 300mg - Obtain repeat HGB A1C later this month 2. 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 Strain of lumbar region, initial encounter - ICD9: 847.2, ICD10: S39.012A - Ice for localized tenderness - Warm moist heat for 20 min three times a day - NAPROXEN 500 MG TABLET twice daily as needed for 1 week - CYCLOBENZAPRINE 10 MG TABLET twice daily as needed for 1 week 4. Primary hypertension - ICD9: 401.9, ICD10: I10 - BP in the office today was 138/94, however the patient was in visible pain - Continue metoprolol 100mg and lisinopril 40mg - CBC - BASIC METABOLIC PNL - LIPID PANEL BASIC 5. KOURTNEY (obstructive sleep apnea) - ICD9: 327.23, ICD10: G47.33 - Has undergone sleep study revealing KOURTNEY - PAP TITRATION PSG (CPAP, BIPAP, ASV) 6. Class 3 severe obesity due to excess calories without serious comorbidity with body mass index (BMI) of 40.0 to 44.9 in adult (HCC) - ICD9: 278.01, V85.41, ICD10: E66.01, Z68.41 - Has a visit set up with Obesity Medicine for 01/10/2022, however the patient expressed to me todaythat she is very interested in bariatric surgery - CONSULT TO BARIATRIC SURGERY 7. Anxiety - ICD9: 300.00, ICD10: F41.9 8. Recurrent major depressive disorder, remission status unspecified (HCC) - ICD9: 296.30, ICD10: F33.9 9. PTSD (post-traumatic stress disorder) - ICD9: 309.81, ICD10: F43.10 - Has improved since moving to [place], she feels a lot of her trauma was tied to where she came from - Has not needed her hydroxyzine 10mg TID PRN - Continue duloxetine 60mg, bupropion 300mg 10. Fibromyalgia - ICD9: 729.1, ICD10: M79.7 - Continue gabapentin 400mg daily Yesy Fernandez DO PGY-2 SUBJECTIVE: Cindy Wright is a 37 year old year old female here today for a 2 month follow-up. HPI Ms. Wright is a 37-year-old female with a past medical history significant for obesity [BMI 44], hyperlipidemia, anxiety, depression, PTSD, type 2 diabetes mellitus, fibromyalgia, essential hypertension, and migraines. She presents to the office today for a 2 month follow-up. She does endorse an acute complaint of right-sided low back pain with radiation down her leg. She believes she hurt it while helping her family with a [place] tree 4 days prior, and she has barely been able to walk around without doubling over in pain. She reports that she has strained her back like this in the past. PAST MEDICAL HISTORY Diagnosis Date Anxiety Hypertension History reviewed. No pertinent surgical history. Social History Tobacco Use Smoking status: Former Types: Cigarettes Smokeless tobacco: Never Vaping Use Vaping Use: Never used FAMILY HISTORY Problem Relation Age of Onset Osteoporosis Mother Hypertension Father Diabetes Father There are no active hospital problems to display for this patient. PAIN EVALUATION 09/28/2022 1022 Pain Level: 7 Pain Location: Back Description: Sharp;Throbbing Duration Units: Months Frequency: Continuous Intervention/Comfort measure: Reposition;Medication;Heat Comments: no effect noted ALLERGIES Allergen Reactions Dihydroaminopryidin* Diarrhea, Hives, Itching, Rash Hydrocodone Hives, Rash Oxycodone-Acetamino* Diarrhea, Rash, Vomiting Sulfa (Sulfonamide * Diarrhea, Rash Sulfamethoxazole-Tr* Diarrhea, Itching, Rash Medication List prior to visit Current Outpatient Medications on File Prior to Visit Medication Sig lisinopril (ZESTRIL, PRINIVIL) 40 mg tablet Take 1 tablet by mouth once daily. metFORMIN (GLUCOPHAGE) 1,000 mg tablet Take 1 tablet by mouth twice daily. metoprolol succinate ER (TOPROL XL) 100 mg Take 1 tablet by mouth daily at bedtime. INVOKANA 300 mg tablet Take 1 tablet by mouth once daily. buPROPion XL (WELLBUTRIN XL) 300 mg 24 hr tablet Take 1 tablet by mouth once daily. DULoxetine (CYMBALTA) 60 mg capsule Take 1 capsule by mouth once daily. zolpidem (AMBIEN) 10 mg Take 10 mg by mouth daily at bedtime. ibuprofen (MOTRIN) 600 mg tablet TAKE 1 TAB BY MOUTH EVERY 6 HOURS NEEDED FOR FEVER OR PAIN glipiZIDE (GLUCOTROL) 10 mg tablet Take 1 tablet by mouth twice daily before meals. (Patient takingdifferently: Take 10 mg by mouth once daily.) ergocalciferol 50,000 unit capsule (VITAMIN D2, DRISDOL) Take 1 capsule by mouth one time a week. No current facility-administered medications on file prior to visit. I have confirmed and edited as necessary the chief complaint, medications, past medical, family andsocial histories. Review of Systems Constitutional: Positive for activity change. Negative for chills, diaphoresis, fatigue and fever. HENT: Negative for congestion, sneezing and sore throat. Eyes: Negative for visual disturbance. Respiratory: Negative for cough, shortness of breath and wheezing. Cardiovascular: Negative for chest pain, palpitations and leg swelling. Gastrointestinal: Negative for abdominal pain, constipation, diarrhea, nausea and vomiting. Endocrine: Negative for polydipsia, polyphagia and polyuria. Genitourinary: Negative for difficulty urinating, dysuria, flank pain and pelvic pain. Musculoskeletal: Positive for back pain and gait problem. Negative for myalgias, neck pain and neckstiffness. Skin: Negative for rash and wound. Neurological: Negative for dizziness, weakness, light-headedness, numbness and headaches. Psychiatric/Behavioral: Negative for agitation, decreased concentration, self- injury and sleep disturbance. The patient is not nervous/anxious. OBJECTIVE: BP 138/94 (BP Site: Right Arm, BP Position: Sitting) Pulse 90 Temp 36.4 C (97.6 F) Resp 19 Ht 182.9 cm (6') Wt (!) 147.9 kg (326 lb) LMP 10/16/2018 (Approximate) SpO2 97% BMI 44.21 kg/m Body mass index is 44.21 kg/m . Physical Exam Constitutional: Appearance: She is not ill-appearing or diaphoretic. Comments: In visible discomfort related to her back pain HENT: Head: Normocephalic and atraumatic. Nose: Nose normal. Mouth/Throat: Mouth: Mucous membranes are moist. Pharynx: Oropharynx is clear. Eyes: Extraocular Movements: Extraocular movements intact. Conjunctiva/sclera: Conjunctivae normal. Pupils: Pupils are equal, round, and reactive to light. Neck: Vascular: No carotid bruit. Cardiovascular: Rate and Rhythm: Normal rate and regular rhythm. Pulses: Normal pulses. Heart sounds: Normal heart sounds. Pulmonary: Effort: Pulmonary effort is normal. Breath sounds: Normal breath sounds. Abdominal: General: Bowel sounds are normal. There is no distension. Palpations: Abdomen is soft. Tenderness: There is no abdominal tenderness. There is no guarding or rebound. Musculoskeletal: General: No swelling or deformity. Cervical back: Normal range of motion and neck supple. No rigidity or tenderness. Comments: Hypertonicity of left lumbar paraspinals and quad lumborum with tenderness to palpation Lymphadenopathy: Cervical: No cervical adenopathy. Skin: General: Skin is warm and dry. Capillary Refill: Capillary refill takes less than 2 seconds. Neurological: General: No focal deficit present. Mental Status: She is alert and oriented to person, place, and time. Cranial Nerves: No cranial nerve deficit. Sensory: No sensory deficit. Motor: No weakness. Coordination: Coordination normal. Gait: Gait abnormal (due to pain). Deep Tendon Reflexes: Reflexes normal. Psychiatric: Mood and Affect: Mood normal. Behavior: Behavior normal. Thought Content: Thought content normal. BP 138/94 Pulse 90 Temp 97.6 Resp 19 Ht 6' 0 (1.83m) Wt 326 lb (147.9kg) SpO2 97% LMP 10/16/2018 BMI 44.20 kg/(m^2). Last BP 09/28/22 : 138/94 07/18/22 : 120/76 Last Wt 09/28/22 : (!) 147.9 kg (326 lb) 07/18/22 : (!) 148.8 kg (328 lb) Visit Diagnoses (E11.9) Type 2 diabetes mellitus without complication, without long-term current use of insulin (HCC) (primary encounter diagnosis) (Z12.4) Cervical cancer screening (S39.012A) Strain of lumbar region, initial encounter (I10) Primary hypertension (G47.33) KOURTNEY (obstructive sleep apnea) (E66.01, Z68.41) Class 3 severe obesity due to excess calories without serious comorbidity with body mass index (BMI) of 40.0 to 44.9 in adult (HCC) (F41.9) Anxiety (F33.9) Recurrent major depressive disorder, remission status unspecified (HCC) (F43.10) PTSD (post-traumatic stress disorder) (M79.7) Fibromyalgia Medications Discontinued During This Encounter Medication Reason hydrOXYzine HCl (ATARAX) 10 mg tablet Discontinued by Patient rizatriptan (MAXALT) 5 mg tablet Discontinued by Patient Discussed the above with the patient and my preceptor using shared decision-making. The patient is in agreement with the diagnostic and treatment plans. Results for orders placed or performed in visit on 07/18/22 HEMOGLOBIN A1C (POC) Result Value Ref Range Hemoglobin A1C (POCT) 8.6 (A) 4.2 - 5.6 % Return in about 4 months (around 01/26/2023). Yesy Fernandez DO, signed on October 05, 2022 3:05 AM documented in this encounterSalem [facility] Center10-24-2022 Miscellaneous Notes* Telephone Encounter - Josy Escobedo - 09/19/2022 2:39 PM EDT Pharmacy faxed requesting the following refill Refill(s) Requested: Requested Prescriptions Pending Prescriptions Disp Refills lisinopril (ZESTRIL, PRINIVIL) 40 mg tablet 30 tablet 1 Sig: Take 1 tablet by mouth once daily. ALLERGIES Allergen Reactions Dihydroaminopryidin* Diarrhea, Hives, Itching, Rash Hydrocodone Hives, Rash Oxycodone-Acetamino* Diarrhea, Rash, Vomiting Sulfa (Sulfonamide * Diarrhea, Rash Sulfamethoxazole-Tr* Diarrhea, Itching, Rash (home) [phone] (cell) Last Office Visit Date: 07/18/2022 Last [facility] Visit: Visit date not found Future Appointment: 09/28/2022 The patients preferred pharmacy has been captured for this encounter? yes Request is for script(s) to be escript to pharmacy. Josy Escobedo documented in this encounterSalem [facility] Center10-03-2022 Miscellaneous Notes* Telephone Encounter - Sabra Power LPN - 08/29/2022 3:23 PM EDT Pharmacy faxed requesting the following refill Refill(s) Requested: Requested Prescriptions Pending Prescriptions Disp Refills buPROPion XL (WELLBUTRIN XL) 300 mg 24 hr tablet 30 tablet 0 Sig: Take 1 tablet by mouth once daily. DULoxetine (CYMBALTA) 60 mg capsule 30 capsule 0 Sig: Take 1 capsule by mouth once daily. ergocalciferol 50,000 unit capsule (VITAMIN D2, DRISDOL) 12 capsule 0 Sig: Take 1 capsule by mouth one time a week. gabapentin (NEURONTIN) 400 mg capsule 60 capsule 0 Sig: Take 1 capsule by mouth twice daily for 30 days. ALLERGIES Allergen Reactions Dihydroaminopryidin* Diarrhea, Hives, Itching, Rash Hydrocodone Hives, Rash Oxycodone-Acetamino* Diarrhea, Rash, Vomiting Sulfa (Sulfonamide * Diarrhea, Rash Sulfamethoxazole-Tr* Diarrhea, Itching, Rash (home) [phone] (cell) Last Office Visit Date: 07/18/2022 Last [facility] Visit: Visit date not found Future Appointment: 09/28/2022 The patients preferred pharmacy has been captured for this encounter? yes Request is for script(s) to be escript to pharmacy. Sabra Power LPN documented in this encounterSalem [facility] Center10-03-2022 Miscellaneous Notes* Telephone Encounter - No Oconnor LPN - 08/29/2022 11:09 AM EDT Added to Maxalt request documented in this encounterSalem Regional [facility] Center09-28-2022 NoteHNO ID: [id number] Author: Ness Pineda Service: ? Author Type: ? Type: Progress Notes Filed: 08/24/2022 10:16 AM Note Text: Sleep Study Check-In Documentation Date: August 24, 2022 Name: Cindy Wright Comments: HST was returned in working order without all sleep questionnaires Patient was not reached. A voicemail was left with patient to call back to complete questionnaires. [facility] NoteHNO ID: [id number] Author: Oneilsusiediana Pineda Service: ? Author Type: ? Type: Progress Notes Filed: 08/24/2022 10:16 AM Note Text: [employer]# [id number] , date shipped out 08/19 Tracking mailout: [id number] Tracking [facility]: [id number]22 NoteHNO ID: [id number] Author: Cullen Feliz III, PhD Service: ? Author Type: Physician Type: Progress Notes Filed: 08/24/2022 10:16 AM Note Text: August 18, 2022 Standing PSG Orders signed in the last 90 days None Future PSG Orders signed in the last 90 days Ordered Auth. provider HOME SLEEP APNEA TEST (HSAT) [[id number]] 08/09/22 Immanuel Morin MD Assoc. diagnoses: Chronic fatigue [R53.82] Q: Indications: A: Obstructive sleep apnea Q: STOP-BANG conditions - Select All That Apply: A: BMI > 35 kg/m2 A2: TIREDNESS, fatigue or sleepiness during the day A3: SNORING that is loud or disruptive A4: NECK circumference (male >43 cm/17 in; female > 41 cm/16 in) Q: Current use of supplemental oxygen during sleep period?: A: No All Prior Sleep Studies (past 365 days) Some values may be hidden. Unless noted otherwise, only the newest values recorded on each date are displayed. Sleep Studies HOME SLEEP APNEA TEST (HSAT) Future Expected: 08/16/2022 Expires: 08/09/23 BMI Readings from Last 2 Encounters: 07/18/22 : 44.48 kg/m? No past medical history on file. The medical record was reviewed to determine if the proposed sleep study conforms to the [facility] Practice Parameters for the Indications for Polysomnography and Related Procedures, or if the sleep study is indicated for other reasons. Indications for study: KOURTNEY suspected with comorbid medical or sleep disorders: Morbid obesity (BMI>40 kg/m2) Sleep study to be performed: Home Sleep Apnea Test (HSAT) Special instructions: None-follow laboratory protocol [facility] Staff Note: I have read the above protocol, edited as needed, and agree to the plan. Cullen Feliz III, PhD 4:37 PM, 08/18/2022[facility]09-22-2022 NoteHNO ID: [id number] Author: Analia Jara Service: ? Author Type: ? Type: Progress Notes Filed: 08/24/2022 10:16 AM Note Text: August 18, 2022 An order has been received for Home Sleep Apnea Test (HSAT) from Dr. Yesy Fernandez a Melissa. [facility] Staff. Visit prep complete. Comments :No The sleep study is scheduled for 08/20. Insurance: Payor: [place] / Plan: [place] / Product Type: Medicaid / Payer/Plan Subscr Sex Relation Sub. Ins. ID Effective Group Num 1. [place] -* CINDY WRIGHT 1985 Female Self [id number] 07/03/22 [address] [facility] Miscellaneous Notes* Telephone Encounter - Sabra Power LPN - 08/10/2022 8:15 AM EDT Pharmacy faxed requesting the following refill Refill(s) Requested: Requested Prescriptions Pending Prescriptions Disp Refills buPROPion XL (WELLBUTRIN XL) 300 mg 24 hr tablet 30 tablet 0 Sig: Take 1 tablet by mouth once daily. DULoxetine (CYMBALTA) 60 mg capsule 30 capsule 0 Sig: Take 1 capsule by mouth once daily. ALLERGIES Allergen Reactions Dihydroaminopryidin* Diarrhea, Hives, Itching, Rash Hydrocodone Hives, Rash Oxycodone-Acetamino* Diarrhea, Rash, Vomiting Sulfa (Sulfonamide * Diarrhea, Rash Sulfamethoxazole-Tr* Diarrhea, Itching, Rash (home) [phone] (cell) Last Office Visit Date: 07/18/2022 Last Distance Health Visit: Visit date not found Future Appointment: 09/28/2022 The patients preferred pharmacy has been captured for this encounter? yes Request is for script(s) to be escript to pharmacy. Sabra Power LPN [facility] Miscellaneous Notes* Telephone Encounter - Sara Carrasco - 08/05/2022 11:18 AM EDT Pulmonary Medicine in [place] called requesting the last office visit for the patient. Faxed to [phone]. Sara Carrasco, Woodworking [employer] Carpenter August 05, 2022 11:19 AM documented in this encounterSalem [facility]09-09-2022 Miscellaneous Notes* Telephone Encounter - Yesy Fernandez DO - 08/05/2022 8:27 AM EDT Prescription sent for Vitamin D. Depending on the patient's response [if she is having other symptoms associated with her gasping], I will likely recommend that she set up an acute visit with us first so that we can see if a referral to Pulmonology is appropriate. Thanks so much, Yesy Fernandez DO 08/05/2022 8:27 AM documented in this encounterSalem [facility]09-01-2022 Miscellaneous Notes* Telephone Encounter - Anjel Cruz - 07/28/2022 8:33 AM EDT 07/18/2022: Patient is scheduled with Dr. Gan 01/10/2023. Confirmation #[id number] documented in this encounterSalem [facility] Center08-31-2022 Miscellaneous Notes* Telephone Encounter - Anjel Cruz - 07/27/2022 9:25 AM EDT 07/26/2022: Patient is scheduled with Dr. Indy Jung on 09/12/2022. Confirmation #[id number] documented in this encounterSalem [facility] Center08-22-2022 History of Present illness Narrative* Yesymariza FernandezDO - 07/18/2022 10:40 AM EDT Images from the original note were not included. [facility] Yesy DO Jim ASSESSMENT/PLAN: 1. Class 3 severe obesity due to excess calories without serious comorbidity with body mass index (BMI) of 40.0 to 44.9 in adult (HCC) - ICD9: 278.01, V85.41, ICD10: E66.01, Z68.41 (primary diagnosis) - Weight increasing - The patient reports that she has gained around 30 lb in the last month - Behavioral intervention: counseled on healthy diet and exercise; patient has been watching what she eats / counting calories, but has not been following a particular exercise regimen - CONSULT TO [facility]ESITY MEDICINE - TSH 2. Cervical cancer screening - ICD9: V76.2, ICD10: Z12.4 - Encouraged monthly BSE - Follow up for annual exam in one year. - CONSULT TO CORE LAYING MACHINE OPERATOR - She thinks her last visit to the [facility] RN was in 2018 3. Hyperlipidemia, unspecified hyperlipidemia type - ICD9: 272.4, ICD10: E78.5 - LIPID PANEL BASIC 4. Chronic fatigue - ICD9: 780.79, ICD10: R53.82 - TSH BLD 5. Anxiety - ICD9: 300.00, ICD10: F41.9 6. Recurrent major depressive disorder, remission status unspecified (HCC) - ICD9: 296.30, ICD10: F33.9 7. 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 Type 2 diabetes mellitus without complication, without long-term current use of insulin (HCC) - ICD9: 250.00, ICD10: E11.9 - A1c currently 8.6% [from 7.7% in 04/2022] - The patient has been without her DM medications for over a month, and has been feeling awful without them - Refill METFORMIN 1,000 MG TABLET - Refill GLIPIZIDE 10 MG TABLET - Refill INVOKANA 300 MG TABLET 9. Fibromyalgia - ICD9: 729.1, ICD10: M79.7 - Refill GABAPENTIN 400 MG CAPSULE BID 10. Primary hypertension - ICD9: 401.9, ICD10: I10 - BP controlled at 120/76 upon arrival, reports she has been taking her anti- hypertensive medications - Refill METOPROLOL SUCCINATE ER 100 MG TABLET,EXTENDED RELEASE 24 HR - Refill LISINOPRIL 40 MG TABLET 11. Chronic migraine without aura without status migrainosus, not intractable - ICD9: 346.70, ICD10: G43.709 - Reports that she tends to use her rescue medication once a month, but reports that her migraines can definitely be linked to stress [and she has had multiple migraines recently] - Refill RIZATRIPTAN 5 MG TABLET Yesy Fernandez DO PGY-2 SUBJECTIVE: Cindy Wright is a 37 year old year old female here today for establishment of care. HPI Ms. Wright is a 37-year-old female with a past medical history significant for fibromyalgia, type 2 diabetes mellitus, essential hypertension, vitamin D deficiency, hyperlipidemia, depression, PTSD, migraines, and obesity. She presents to the office today for establishment of care with a new PCP. She recently moved to [place] [12/2021] from [place]. Her major concerns today pertain to her lack of medications for the last month or so [due to not having a PCP out here], and recent weight gain of 30 lbin the last month. Recent lab work from previous PCP [05/13/2022]: - Creatinine 1.02 - Vitamin D 54 - Hemoglobin 15.6 - Hemoglobin A1c 7.7% - Urinalysis with ketones - Lipids within normal limits - CBC otherwise largely unremarkable - CMP otherwise largely unremarkable Social History: She now lives locally, and resides with her and 3 sons. They moved up to [place] from [place] [12/2021] for her 's work [[employer]]. 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 The patient follows no specific exercise regimen. Regarding her diet, she has been watching what she eats and counting calories; she quit soda andcaffeine. She denies and smoking or alcohol use. History reviewed. No pertinent past medical history. History reviewed. No pertinent surgical history. Social History Tobacco Use Smoking status: Former Types: Cigarettes Smokeless tobacco: Never History reviewed. No pertinent family history. There are no active hospital problems to display for this patient. PAIN EVALUATION No data found in the last 1 encounters. ALLERGIES Allergen Reactions Dihydroaminopryidin* Diarrhea, Hives, Itching, Rash Hydrocodone Hives, Rash Oxycodone-Acetamino* Diarrhea, Rash, Vomiting Sulfa (Sulfonamide * Diarrhea, Rash Sulfamethoxazole-Tr* Diarrhea, Itching, Rash Current Outpatient Medications Medication Sig zolpidem (AMBIEN) 10 mg Take 10 mg by mouth daily at bedtime. ibuprofen (MOTRIN) 600 mg tablet TAKE 1 TAB BY MOUTH EVERY 6 HOURS NEEDED FOR FEVER OR PAIN hydrOXYzine HCl (ATARAX) 10 mg tablet ergocalciferol 50,000 unit capsule (VITAMIN D2, DRISDOL) rizatriptan (MAXALT) 5 mg tablet Take 1 tablet by mouth as needed for migraine headache (see administration instructions). metoprolol succinate ER (TOPROL XL) 100 mg Take 1 tablet by mouth daily at bedtime. metFORMIN (GLUCOPHAGE) 1,000 mg tablet Take 1 tablet by mouth twice daily. lisinopril (ZESTRIL, PRINIVIL) 40 mg tablet Take 1 tablet by mouth once daily. glipiZIDE (GLUCOTROL) 10 mg tablet Take 1 tablet by mouth twice daily before meals. gabapentin (NEURONTIN) 400 mg capsule Take 1 capsule by mouth twice daily for 30 days. DULoxetine (CYMBALTA) 60 mg capsule Take 1 capsule by mouth once daily. INVOKANA 300 mg tablet Take 1 tablet by mouth once daily. buPROPion XL (WELLBUTRIN XL) 300 mg 24 hr tablet Take 1 tablet by mouth once daily. No current facility-administered medications for this visit. I have confirmed and edited as necessary the chief complaint, medications, past medical, family andsocial histories. Review of Systems Constitutional: Positive for activity change (Due to fatigue), fatigue and unexpected weight change. Negative for appetite change, chills and fever. HENT: Negative for congestion, ear pain, sneezing and sore throat. Eyes: Negative for pain, discharge and visual disturbance. Respiratory: Negative for cough, shortness of breath and wheezing. Cardiovascular: Negative for chest pain, palpitations and leg swelling. Gastrointestinal: Negative for abdominal pain, constipation, diarrhea, nausea and vomiting. Endocrine: Negative for polydipsia, polyphagia and polyuria. Genitourinary: Negative for difficulty urinating, dysuria and flank pain. Musculoskeletal: Negative for gait problem, joint swelling and myalgias. Skin: Negative for rash and wound. Neurological: Positive for headaches. Negative for dizziness, weakness and light-headedness. Psychiatric/Behavioral: Positive for decreased concentration and sleep disturbance. The patient is nervous/anxious. OBJECTIVE: BP 120/76 Pulse 87 Temp 36.6 C (97.9 F) Resp 18 Ht 182.9 cm (6') Wt (!) 148.8 kg (328 lb) SpO2 97% BMI 44.48 kg/m Body mass index is 44.48 kg/m . Physical Exam Constitutional: General: She is not in acute distress. Appearance: She is obese. She is not ill-appearing, toxic-appearing or diaphoretic. Comments: Very pleasant HENT: Head: Normocephalic and atraumatic. Nose: Nose normal. Mouth/Throat: Mouth: Mucous membranes are moist. Pharynx: Oropharynx is clear. Eyes: Extraocular Movements: Extraocular movements intact. Conjunctiva/sclera: Conjunctivae normal. Pupils: Pupils are equal, round, and reactive to light. Neck: Vascular: No carotid bruit. Comments: Thyroid symmetric, not enlarged. Cardiovascular: Rate and Rhythm: Normal rate and regular rhythm. Pulses: Normal pulses. Heart sounds: Normal heart sounds. Pulmonary: Effort: Pulmonary effort is normal. Breath sounds: Normal breath sounds. Abdominal: General: Bowel sounds are normal. There is no distension. Palpations: Abdomen is soft. Tenderness: There is no abdominal tenderness. There is no guarding or rebound. Musculoskeletal: General: No swelling. Normal range of motion. Cervical back: Normal range of motion and neck supple. No rigidity or tenderness. Lymphadenopathy: Cervical: No cervical adenopathy. Skin: General: Skin is warm and dry. Capillary Refill: Capillary refill takes less than 2 seconds. Neurological: General: No focal deficit present. Mental Status: She is alert and oriented to person, place, and time. Psychiatric: Mood and Affect: Mood normal. Behavior: Behavior normal. Thought Content: Thought content normal. Depression Screening: Patient Refused / Declined Initial Questionnaire: Yes Little interest or pleasure in doing things: 2 - More than half the days Feeling down, depressed or hopeless: 0 - Not at all Score (Questions 1 & 2): 2 Total Score (All Questions): 2 Screening tool completed by provider on patient's behalf. Based on the PHQ-2 score and patient interview, patient is already diagnosed with depression. Screening tool discussed with patient, and I recommended continuing current plan of care. Results for orders placed or performed in visit on 07/18/22 HEMOGLOBIN A1C (POC) Result Value Ref Range Hemoglobin A1C (POCT) 8.6 (A) 4.2 - 5.6 % . Return in about 2 months (around 09/17/2022) for Follow up. Discussed the above with the patient and my preceptor using shared decision-making. The patient is in agreement with the diagnostic and treatment plans. Provider: Yesy Fernandez DO Signed on: July 20, 2022 3:42 PM documented in this encounterSalem [facility]08-09-2022 Miscellaneous Notes* Telephone Encounter - Dominique Oropeza - 07/05/2022 2:15 PM EDT Spoke to patient, and discussed rescheduling appointment due to provider being out of office. Patient agreed, placed on hold to look for a new appointment and was disconnected. Attempted to call patient back 3 times and was sent to voicemail. Voicemail not setup. No message left. Appointment cancelled. Dominique Oropeza July 05, 2022 2:21 PM * Telephone Encounter - Dominique Oropeaz - 07/05/2022 11:01 AM EDT Callx1 regarding appointment tomorrow with Eleonora Shank at [phone] for Amenorrhea. Unable to reach patient, no message left. Appointment needs R/S Eleonora is not in office. My chart message sent. Dominique Oropeza July 05, 2022 11:04 AM documented [facility] encounterOhio[facility]* Diagnosis Class 3 severe obesity due to excess calories without serious comorbidity with body mass index (BMI) of 40.0 to 44.9 in adult (HCC)- Primary Cervical cancer screening Screening for malignant neoplasm of the cervix Hyperlipidemia, unspecified hyperlipidemia type Chronic fatigue Other malaise and fatigue Anxiety Anxiety state, unspecified Type 2 diabetes mellitus without complication, without long-term current use of insulin ([facility]) Fibromyalgia Mylagia and myositis, unspecified Primary hypertension Unspecified essential hypertension Chronic migraine without aura without status migrainosus, not intractable Chronic migraine without aura, without mention of intractable migraine without mention of status migrainosus Recurrent major depressive disorder, remission status unspecified ([facility]) PTSD (post-traumatic stress disorder) Posttraumatic stress disorder documented in this encounter [facility]* Diagnosis Vitamin D deficiency- Primary Unspecified vitamin D deficiency [facility]* Diagnosis Anxiety Anxiety state, unspecified documented in this encounter [facility]* Diagnosis Type 2 diabetes mellitus without complication, without long-term current use of insulin ([facility]) documented in this encounter [facility]* Diagnosis Anxiety Anxiety state, unspecified Vitamin D deficiency Unspecified vitamin D deficiency Fibromyalgia Mylagia and myositis, unspecified documented in this encounter [facility] note* Diagnosis Primary hypertension Unspecified essential hypertension [facility]* Diagnosis Fibromyalgia Mylagia and myositis, unspecified documented in this encounter [facility]* Diagnosis Type 2 diabetes mellitus without complication, without long-term current use of insulin ([facility])- Primary Cervical cancer screening Screening for malignant neoplasm of the cervix Strain of lumbar region, initial encounter Primary hypertension Unspecified essential hypertension KOURTNEY (obstructive sleep apnea) Obstructive sleep apnea (adult) (pediatric) Class 3 severe obesity due to excess calories without serious comorbidity with body mass index (BMI) of 40.0 to 44.9 in adult (HCC) Anxiety Anxiety state, unspecified Recurrent major depressive disorder, remission status unspecified ([facility]) PTSD (post-traumatic stress disorder) Posttraumatic stress disorder Fibromyalgia Mylagia and myositis, unspecified documented in this encounter [facility]* Diagnosis Anxiety Anxiety state, unspecified [facility]* Diagnosis Strain of lumbar region, initial encounter [facility]* Diagnosis Primary hypertension Unspecified essential hypertension documented in this encounter [facility]* Diagnosis Type 2 diabetes mellitus without complication, without long-term current use of insulin (HCC) Primary hypertension Unspecified essential hypertension [facility]* Diagnosis Anxiety Anxiety state, unspecified documented in this encounter [facility]* Diagnosis Strain of lumbar region, initial encounter [facility]* Diagnosis Primary hypertension Unspecified essential hypertension documented in this encounter [facility]* Diagnosis Fibromyalgia Mylagia and myositis, unspecified Type 2 diabetes mellitus without complication, without long-term current use of insulin (HCC) [facility]* Diagnosis Strain of lumbar region, initial encounter documented in this encounter [facility]* Diagnosis Vitamin D deficiency Unspecified vitamin D deficiency Fibromyalgia Mylagia and myositis, unspecified Strain of lumbar region, initial encounter Type 2 diabetes mellitus without complication, without long-term current use of insulin (HCC) Primary hypertension Unspecified essential hypertension Anxiety Anxiety state, unspecified [facility]* Diagnosis Anxiety Anxiety state, unspecified Strain of lumbar region, initial encounter Vitamin D deficiency Unspecified vitamin D deficiency Fibromyalgia Mylagia and myositis, unspecified documented in this encounter [facility]* Diagnosis Type 2 diabetes mellitus without complication, without long-term current use of insulin (HCC) documented in this encounter [facility] note* Diagnosis Class 3 severe obesity with serious comorbidity in adult, unspecified BMI, unspecified obesity type (HCC)- Primary Body mass index 40.0-44.9, adult (HCC) Body Mass Index 40.0-44.9, adult Dietary counseling and surveillance Dietary surveillance and counseling Vitamin D deficiency Unspecified vitamin D deficiency Primary hypertension Unspecified essential hypertension Uncontrolled type 2 diabetes mellitus with hyperglycemia (HCC) [facility]* Diagnosis Strain of lumbar region, initial encounter Fibromyalgia Mylagia and myositis, unspecified Type 2 diabetes mellitus without complication, without long-term current use of insulin (HCC) [facility]* Diagnosis Vitamin D deficiency Unspecified vitamin D deficiency Primary hypertension Unspecified essential hypertension Type 2 diabetes mellitus without complication, without long-term current use of insulin (HCC) Anxiety Anxiety state, unspecified Fibromyalgia Mylagia and myositis, unspecified [facility]* Diagnosis Class 3 severe obesity with serious comorbidity in adult, unspecified BMI, unspecified obesity type (HCC) Body mass index 40.0-44.9, adult (HCC) Body Mass Index 40.0-44.9, adult Uncontrolled type 2 diabetes mellitus with hyperglycemia (HCC) documented in this encounter [facility]* Diagnosis Class 3 severe obesity with serious comorbidity in adult, unspecified BMI, unspecified obesity type (HCC) Body mass index 40.0-44.9, adult (HCC) Body Mass Index 40.0-44.9, adult Uncontrolled type 2 diabetes mellitus with hyperglycemia ([facility]) [facility]* Diagnosis Anxiety Anxiety state, unspecified [facility]* Diagnosis Anxiety Anxiety state, unspecified Strain of lumbar region, initial encounter Type 2 diabetes mellitus without complication, without long-term current use of insulin ([facility]) [facility]* Diagnosis Anxiety Anxiety state, unspecified Strain of lumbar region, initial encounter Fibromyalgia Mylagia and myositis, unspecified [facility]* Diagnosis Class 3 severe obesity with serious comorbidity in adult, unspecified BMI, unspecified obesity type (HCC)- Primary Dietary counseling and surveillance Dietary surveillance and counseling Uncontrolled type 2 diabetes mellitus with hyperglycemia (HCC) Body mass index 40.0-44.9, adult (HCC) Body Mass Index 40.0-44.9, adult Vitamin D deficiency Unspecified vitamin D deficiency Primary hypertension Unspecified essential hypertension [facility]* Diagnosis Vitamin D deficiency Unspecified vitamin D deficiency Type 2 diabetes mellitus without complication, without long-term current use of insulin ([facility]) Primary hypertension Unspecified essential hypertension Anxiety Anxiety state, unspecified [facility]* Diagnosis Uncontrolled type 2 diabetes mellitus with hyperglycemia (HCC)- Primary [facility]* Diagnosis Class 3 severe obesity with serious comorbidity in adult, unspecified BMI, unspecified obesity type (HCC)- Primary Uncontrolled type 2 diabetes mellitus with hyperglycemia (HCC) Body mass index 40.0-44.9, adult (HCC) Body Mass Index 40.0-44.9, adult Vitamin D deficiency Unspecified vitamin D deficiency Primary hypertension Unspecified essential hypertension Dietary counseling and surveillance Dietary surveillance and counseling documented [facility] this encounter [facility]* Diagnosis Anxiety- Primary Anxiety state, unspecified Vitamin D deficiency Unspecified vitamin D deficiency Recurrent major depressive disorder, remission status unspecified ([facility]) PTSD (post-traumatic stress disorder) Posttraumatic stress disorder Obesity, Class II, BMI 35-39.9 Obesity, unspecified documented in this encounter [facility] note* Diagnosis Class 3 severe obesity with serious comorbidity in adult, unspecified BMI, unspecified obesity type (HCC) Uncontrolled type 2 diabetes mellitus with hyperglycemia (HCC) Body mass index 40.0-44.9, adult (HCC) Body Mass Index 40.0-44.9, adult documented in this encounter [facility] note* Diagnosis Anxiety Anxiety state, unspecified Type 2 diabetes mellitus without complication, without long-term current use of insulin (HCC) Primary hypertension Unspecified essential hypertension documented in this encounter [facility] note* Diagnosis NO SHOW- Primary documented in this encounter [facility] note* Diagnosis Upper respiratory tract infection, unspecified type- Primary documented in this encounter [facility] note* Diagnosis Class 3 severe obesity with serious comorbidity in adult, unspecified BMI, unspecified obesity type (HCC) Uncontrolled type 2 diabetes mellitus with hyperglycemia (HCC) Body mass index 40.0-44.9, adult (HCC) Body Mass Index 40.0-44.9, adult documented in this encounter [facility] note* Diagnosis Class 3 severe obesity with serious comorbidity in adult, unspecified BMI, unspecified obesity type (HCC)- Primary Primary hypertension Unspecified essential hypertension Dietary counseling and surveillance Dietary surveillance and counseling Body mass index 40.0-44.9, adult (HCC) Body Mass Index 40.0-44.9, adult Vitamin D deficiency Unspecified vitamin D deficiency Controlled type 2 diabetes mellitus without complication, without long-term current use of insulin (HCC) Type 2 diabetes mellitus without complication, without long-term current use of insulin (HCC) documented in this encounter [facility] note* Diagnosis Anxiety Anxiety state, unspecified Primary hypertension Unspecified essential hypertension [facility] Acute [facility] syndrome- [facility] Diagnosis Class 3 severe obesity with serious comorbidity in adult, unspecified BMI, unspecified obesity type (HCC)- Primary Body mass index 40.0-44.9, adult (HCC) Body Mass Index 40.0-44.9, adult Dietary counseling and surveillance Dietary surveillance and counseling Type 2 diabetes mellitus without complication, without long-term current use of insulin (HCC) Vitamin D deficiency Unspecified vitamin D deficiency Primary hypertension Unspecified essential hypertension [facility] Attachments The following attachments cannot be sent through Care Everywhere. * URI (Upper Respiratory Infection): Viral (Niuean) [facility] Attachments The following attachments cannot be sent through Care Everywhere. * Viral Infections ([place]) [facility] Family History No Family History Records FoundNo Family History Records FoundNo Family History Records FoundNo Family History Records FoundNo Family History Records Found Advance Directives No Advanced Directives Records FoundNo Advanced Directives Records FoundNo Advanced Directives Records FoundNo Advanced Directives Records FoundNo Advanced Directives Records Found Reason for Referral Specialty Diagnoses / Procedures Referred By Contac t Referred To Contact Diagnoses Cervical cancer screening Procedures CONSULT TO CORE LAYING MACHINE OPERATOR OFFICE/OUTPATIENT [facility] 60-74 MINUTES Angelo Can MD [address] [place] [address] Referral ID Status Reason Start Date Expiration Date Visits Requested Visits Authorized [id number] Authorized PCP Requested Referral Auto-Generate d Referral 07/18/2022 07/18/2023 1 1 Specialty Diagnoses / Procedures Referred By Contac t Referred To Contact Diagnoses Class 3 severe obesity due to excess calories without serious comorbidity with body mass index (BMI) of 40.0 to 44.9 in adult (HCC) Procedures CONSULT TO BARIATRIC SURGERY Angelo Can MD [address] [place] [address] Referral ID Status Reason Start Date Expiration Date V isits Requested Visits Authorized [id number] Ref Not Required 09/28/2022 11/27/2022 1 1 Referral ID Status Reason Start Date Expiration Date Visits Requested Visits Authorized [id number] Authorized PCP Requested Referral Auto-Generate d Referral 09/28/2022 09/28/2023 1 1 Specialty Diagnoses / Procedures Referred By Contac t Referred To Contact Diagnoses Class 3 severe obesity with serious comorbidity in adult, unspecified BMI, unspecified obesity type (HCC) Body mass index 40.0-44.9, adult (HCC) Uncontrolled type 2 diabetes mellitus with hyperglycemia (HCC) Fela Gan MD [address] [place] [address] Referral ID Status Reason Start Date Expiration Date Visits Re quested Visits Authorized [id number] Closed 1 1 Specialty Diagnoses / Procedures Referred By Contac t Referred To Contact Diagnoses Class 3 severe obesity with serious comorbidity in adult, unspecified BMI, unspecified obesity type (HCC) Body mass index 40.0-44.9, adult (HCC) Uncontrolled type 2 diabetes mellitus with hyperglycemia (HCC) Procedures CONSULT TO BARIATRIC SURGERY Fela Gan MD [address] [place] [address] Referral ID Status Reason Start Date Expiration Date V isits Requested Visits Authorized [id number] Ref Not Required 01/10/2023 03/11/2023 1 1 Specialty Diagnoses / Procedures Referred By Contac t Referred To Contact Diagnoses Anxiety Procedures CONSULT TO PSYCHIATRY OFFICE/OUTPATIENT [facility] 60-74 MINUTES Danny Corbett MD [address] [place] [address] Referral ID Status Reason Start Date Expiration Date Visits Requested Visits Authorized [id number] Pending Review PCP Requested Referral 07/20/2023 07/19/2024 1 1 Specialty Diagnoses / Procedures Referred By Contac t Referred To Contact Diagnoses Type 2 diabetes mellitus without complication, without long-term current use of insulin (HCC) Fela Gan MD [address] [place] [address] Referral ID Status Reason Start Date Expiration Date V isits Requested Visits Authorized [id number] Authorized 01/05/2024 01/03/2025 1 1 Additional Source Comments INFORMATION SOURCE (unrecogn ized section and content) DATE CREATED AUTHOR AUTHOR'S ORGANIZ ATION 08/29/2022 [facility] DATE CREATED AUTHOR AUTHOR'S ORGANIZ ATION 06/16/2023 [facility] DATE CREATED AUTHOR AUTHOR'S ORGANIZ ATION 01/01/2024 [facility] ([facility] DATE CREATED AUTHOR AUTHOR'S ORGANIZ ATION 01/06/2024 [facility] Source Comments (unrecognize d section and content) In the event this informatio n is protected by the Federal Confidentiality of Alcohol and Drug Abuse Patient Records regulations: The Federal rules restrict any use of the information to criminally investigate or prosecute any alcohol or drug abuse patient.[facility] the event this information is protected by the Federal Confidentiality of Alcohol and Drug Abuse Patient Records regulations: The Federal rules restrict any use of the information to criminally investigate or prosecute any alcohol or drug abuse patient.[facility] CenterIn the event this information is protected by the Federal Confidentiality of Alcohol and Drug Abuse Patient Records regulations: The Federal rules restrict any use of the information to criminally investigate or prosecute any alcohol or drug abuse patient.[facility] CenterIn the event this information is protected by the Federal Confidentiality of Alcohol and Drug Abuse Patient Records regulations: The Federal rules restrict any use of the information to criminally investigate or prosecute any alcohol or drug abuse patient.[facility] CenterIn the event this information is protected by the Federal Confidentiality of Alcohol and Drug Abuse Patient Records regulations: The Federal rules restrict any use of the information to criminally investigate or prosecute any alcohol or drug abuse patient.[facility] CenterIn the event this information is protected by the Federal Confidentiality of Alcohol and Drug Abuse Patient Records regulations: The Federal rules restrict any use of the information to criminally investigate or prosecute any alcohol or drug abuse patient.[facility] CenterIn the event this information is protected by the Federal Confidentiality of Alcohol and Drug Abuse Patient Records regulations: The Federal rules restrict any use of the information to criminally investigate or prosecute any alcohol or drug abuse patient.[facility] CenterIn the event this information is protected by the Federal Confidentiality of Alcohol and Drug Abuse Patient Records regulations: The Federal rules restrict any use of the information to criminally investigate or prosecute any alcohol or drug abuse patient.[facility] CenterIn the event this information is protected by the Federal Confidentiality of Alcohol and Drug Abuse Patient Records regulations: The Federal rules restrict any use of the information to criminally investigate or prosecute any alcohol or drug abuse patient.[facility] CenterIn the event this information is protected by the Federal Confidentiality of Alcohol and Drug Abuse Patient Records regulations: The Federal rules restrict any use of the information to criminally investigate or prosecute any alcohol or drug abuse patient.[facility] CenterIn the event this information is protected by the Federal Confidentiality of Alcohol and Drug Abuse Patient Records regulations: The Federal rules restrict any use of the information to criminally investigate or prosecute any alcohol or drug abuse patient.[facility] CenterIn the event this information is protected by the Federal Confidentiality of Alcohol and Drug Abuse Patient Records regulations: The Federal rules restrict any use of the information to criminally investigate or prosecute any alcohol or drug abuse patient.[facility] CenterIn the event this information is protected by the Federal Confidentiality of Alcohol and Drug Abuse Patient Records regulations: The Federal rules restrict any use of the information to criminally investigate or prosecute any alcohol or drug abuse patient.[facility] CenterIn the event this information is protected by the Federal Confidentiality of Alcohol and Drug Abuse Patient Records regulations: The Federal rules restrict any use of the information to criminally investigate or prosecute any alcohol or drug abuse patient.[facility] CenterIn the event this information is protected by the Federal Confidentiality of Alcohol and Drug Abuse Patient Records regulations: The Federal rules restrict any use of the information to criminally investigate or prosecute any alcohol or drug abuse patient.[facility] CenterIn the event this information is protected by the Federal Confidentiality of Alcohol and Drug Abuse Patient Records regulations: The Federal rules restrict any use of the information to criminally investigate or prosecute any alcohol or drug abuse patient.[facility] CenterIn the event this information is protected by the Federal Confidentiality of Alcohol and Drug Abuse Patient Records regulations: The Federal rules restrict any use of the information to criminally investigate or prosecute any alcohol or drug abuse patient.[facility] CenterIn the event this information is protected by the Federal Confidentiality of Alcohol and Drug Abuse Patient Records regulations: The Federal rules restrict any use of the information to criminally investigate or prosecute any alcohol or drug abuse patient.[facility] CenterIn the event this information is protected by the Federal Confidentiality of Alcohol and Drug Abuse Patient Records regulations: The Federal rules restrict any use of the information to criminally investigate or prosecute any alcohol or drug abuse patient.[facility] CenterIn the event this information is protected by the Federal Confidentiality of Alcohol and Drug Abuse Patient Records regulations: The Federal rules restrict any use of the information to criminally investigate or prosecute any alcohol or drug abuse patient.[facility] CenterIn the event this information is protected by the Federal Confidentiality of Alcohol and Drug Abuse Patient Records regulations: The Federal rules restrict any use of the information to criminally investigate or prosecute any alcohol or drug abuse patient.[facility] CenterIn the event this information is protected by the Federal Confidentiality of Alcohol and Drug Abuse Patient Records regulations: The Federal rules restrict any use of the information to criminally investigate or prosecute any alcohol or drug abuse patient.[facility] CenterIn the event this information is protected by the Federal Confidentiality of Alcohol and Drug Abuse Patient Records regulations: The Federal rules restrict any use of the information to criminally investigate or prosecute any alcohol or drug abuse patient.[facility] CenterIn the event this information is protected by the Federal Confidentiality of Alcohol and Drug Abuse Patient Records regulations: The Federal rules restrict any use of the information to criminally investigate or prosecute any alcohol or drug abuse patient.[facility] CenterIn the event this information is protected by the Federal Confidentiality of Alcohol and Drug Abuse Patient Records regulations: The Federal rules restrict any use of the information to criminally investigate or prosecute any alcohol or drug abuse patient.[facility] CenterIn the event this information is protected by the Federal Confidentiality of Alcohol and Drug Abuse Patient Records regulations: The Federal rules restrict any use of the information to criminally investigate or prosecute any alcohol or drug abuse patient.[facility] CenterIn the event this information is protected by the Federal Confidentiality of Alcohol and Drug Abuse Patient Records regulations: The Federal rules restrict any use of the information to criminally investigate or prosecute any alcohol or drug abuse patient.[facility] CenterIn the event this information is protected by the Federal Confidentiality of Alcohol and Drug Abuse Patient Records regulations: The Federal rules restrict any use of the information to criminally investigate or prosecute any alcohol or drug abuse patient.[facility] CenterIn the event this information is protected by the Federal Confidentiality of Alcohol and Drug Abuse Patient Records regulations: The Federal rules restrict any use of the information to criminally investigate or prosecute any alcohol or drug abuse patient.[facility] CenterIn the event this information is protected by the Federal Confidentiality of Alcohol and Drug Abuse Patient Records regulations: The Federal rules restrict any use of the information to criminally investigate or prosecute any alcohol or drug abuse patient.[facility] CenterIn the event this information is protected by the Federal Confidentiality of Alcohol and Drug Abuse Patient Records regulations: The Federal rules restrict any use of the information to criminally investigate or prosecute any alcohol or drug abuse patient.[facility] CenterIn the event this information is protected by the Federal Confidentiality of Alcohol and Drug Abuse Patient Records regulations: The Federal rules restrict any use of the information to criminally investigate or prosecute any alcohol or drug abuse patient.[facility] CenterIn the event this information is protected by the Federal Confidentiality of Alcohol and Drug Abuse Patient Records regulations: The Federal rules restrict any use of the information to criminally investigate or prosecute any alcohol or drug abuse patient.[facility] CenterIn the event this information is protected by the Federal Confidentiality of Alcohol and Drug Abuse Patient Records regulations: The Federal rules restrict any use of the information to criminally investigate or prosecute any alcohol or drug abuse patient.[facility] CenterIn the event this information is protected by the Federal Confidentiality of Alcohol and Drug Abuse Patient Records regulations: The Federal rules restrict any use of the information to criminally investigate or prosecute any alcohol or drug abuse patient.[facility] CenterIn the event this information is protected by the Federal Confidentiality of Alcohol and Drug Abuse Patient Records regulations: The Federal rules restrict any use of the information to criminally investigate or prosecute any alcohol or drug abuse patient.[facility] CenterIn the event this information is protected by the Federal Confidentiality of Alcohol and Drug Abuse Patient Records regulations: The Federal rules restrict any use of the information to criminally investigate or prosecute any alcohol or drug abuse patient.[facility] CenterIn the event this information is protected by the Federal Confidentiality of Alcohol and Drug Abuse Patient Records regulations: The Federal rules restrict any use of the information to criminally investigate or prosecute any alcohol or drug abuse patient.[facility] CenterIn the event this information is protected by the Federal Confidentiality of Alcohol and Drug Abuse Patient Records regulations: The Federal rules restrict any use of the information to criminally investigate or prosecute any alcohol or drug abuse patient.[facility] CenterIn the event this information is protected by the Federal Confidentiality of Alcohol and Drug Abuse Patient Records regulations: The Federal rules restrict any use of the information to criminally investigate or prosecute any alcohol or drug abuse patient.[facility] CenterIn the event this information is protected by the Federal Confidentiality of Alcohol and Drug Abuse Patient Records regulations: The Federal rules restrict any use of the information to criminally investigate or prosecute any alcohol or drug abuse patient.[facility] CenterIn the event this information is protected by the Federal Confidentiality of Alcohol and Drug Abuse Patient Records regulations: The Federal rules restrict any use of the information to criminally investigate or prosecute any alcohol or drug abuse patient.[facility] CenterIn the event this information is protected by the Federal Confidentiality of Alcohol and Drug Abuse Patient Records regulations: The Federal rules restrict any use of the information to criminally investigate or prosecute any alcohol or drug abuse patient.[facility] CenterIn the event this information is protected by the Federal Confidentiality of Alcohol and Drug Abuse Patient Records regulations: The Federal rules restrict any use of the information to criminally investigate or prosecute any alcohol or drug abuse patient.[facility] CenterIn the event this information is protected by the Federal Confidentiality of Alcohol and Drug Abuse Patient Records regulations: The Federal rules restrict any use of the information to criminally investigate or prosecute any alcohol or drug abuse patient.[facility] CenterIn the event this information is protected by the Federal Confidentiality of Alcohol and Drug Abuse Patient Records regulations: The Federal rules restrict any use of the information to criminally investigate or prosecute any alcohol or drug abuse patient.[facility] CenterIn the event this information is protected by the Federal Confidentiality of Alcohol and Drug Abuse Patient Records regulations: The Federal rules restrict any use of the information to criminally investigate or prosecute any alcohol or drug abuse patient.[facility] CenterIn the event this information is protected by the Federal Confidentiality of Alcohol and Drug Abuse Patient Records regulations: The Federal rules restrict any use of the information to criminally investigate or prosecute any alcohol or drug abuse patient.[facility] CenterIn the event this information is protected by the Federal Confidentiality of Alcohol and Drug Abuse Patient Records regulations: The Federal rules restrict any use of the information to criminally investigate or prosecute any alcohol or drug abuse patient.[facility] CenterIn the event this information is protected by the Federal Confidentiality of Alcohol and Drug Abuse Patient Records regulations: The Federal rules restrict any use of the information to criminally investigate or prosecute any alcohol or drug abuse patient.[facility] CenterIn the event this information is protected by the Federal Confidentiality of Alcohol and Drug Abuse Patient Records regulations: The Federal rules restrict any use of the information to criminally investigate or prosecute any alcohol or drug abuse patient.[facility] CenterIn the event this information is protected by the Federal Confidentiality of Alcohol and Drug Abuse Patient Records regulations: The Federal rules restrict any use of the information to criminally investigate or prosecute any alcohol or drug abuse patient.[facility] CenterIn the event this information is protected by the Federal Confidentiality of Alcohol and Drug Abuse Patient Records regulations: The Federal rules restrict any use of the information to criminally investigate or prosecute any alcohol or drug abuse patient.[facility] CenterIn the event this information is protected by the Federal Confidentiality of Alcohol and Drug Abuse Patient Records regulations: The Federal rules restrict any use of the information to criminally investigate or prosecute any alcohol or drug abuse patient.[facility] CenterIn the event this information is protected by the Federal Confidentiality of Alcohol and Drug Abuse Patient Records regulations: The Federal rules restrict any use of the information to criminally investigate or prosecute any alcohol or drug abuse patient.[facility] CenterIn the event this information is protected by the Federal Confidentiality of Alcohol and Drug Abuse Patient Records regulations: The Federal rules restrict any use of the information to criminally investigate or prosecute any alcohol or drug abuse patient.[facility] CenterIn the event this information is protected by the Federal Confidentiality of Alcohol and Drug Abuse Patient Records regulations: The Federal rules restrict any use of the information to criminally investigate or prosecute any alcohol or drug abuse patient.[facility] CenterIn the event this information is protected by the Federal Confidentiality of Alcohol and Drug Abuse Patient Records regulations: The Federal rules restrict any use of the information to criminally investigate or prosecute any alcohol or drug abuse patient.[facility] CenterIn the event this information is protected by the Federal Confidentiality of Alcohol and Drug Abuse Patient Records regulations: The Federal rules restrict any use of the information to criminally investigate or prosecute any alcohol or drug abuse patient.[facility] CenterIn the event this information is protected by the Federal Confidentiality of Alcohol and Drug Abuse Patient Records regulations: The Federal rules restrict any use of the information to criminally investigate or prosecute any alcohol or drug abuse patient.[facility] Center[facility] the event this information is protected by the Federal Confidentiality of Alcohol and Drug Abuse Patient Records regulations: The Federal rules restrict any use of the information to criminally investigate or prosecute any alcohol or drug abuse patient.[facility] Center[facility] the event this information is protected by the Federal Confidentiality of Alcohol and Drug Abuse Patient Records regulations: The Federal rules restrict any use of the information to criminally investigate or prosecute any alcohol or drug abuse patient.[facility] Center[facility] the event this information is protected by the Federal Confidentiality of Alcohol and Drug Abuse Patient Records regulations: The Federal rules restrict any use of the information to criminally investigate or prosecute any alcohol or drug abuse patient.[facility] Center[facility] the event this information is protected by the Federal Confidentiality of Alcohol and Drug Abuse Patient Records regulations: The Federal rules restrict any use of the information to criminally investigate or prosecute any alcohol or drug abuse patient.[facility] CenterIn the event this information is protected by the Federal Confidentiality of Alcohol and Drug Abuse Patient Records regulations: The Federal rules restrict any use of the information to criminally investigate or prosecute any alcohol or drug abuse patient.[facility] CenterIn the event this information is protected by the Federal Confidentiality of Alcohol and Drug Abuse Patient Records regulations: The Federal rules restrict any use of the information to criminally investigate or prosecute any alcohol or drug abuse patient.[facility] Center[facility] the event this information is protected by the Federal Confidentiality of Alcohol and Drug Abuse Patient Records regulations: The Federal rules restrict any use of the information to criminally investigate or prosecute any alcohol or drug abuse patient.[facility] Reason for Visit (unrecogniz ed section and content) Reason Comments Physical-Other Med refills Reason Comments 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 Reason Comments Referral Information Consult to Obesity Medicine Reason Comments 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 Reason Onset Date Comments Refill Request 08/10/2022 bupropion , Dulo xetine Reason Comments Refill Request Reason Onset Date Comments Refill Request 08/29/2022 Bupropion XL , C ymbalata , Erogcalciferol Reason Onset Date Comments Refill Request 09/19/2022 lisinopril Reason Onset Date Comments Refill Request 09/28/2022 gabapentin Reason Comments Referral Information Consult to Bariatri c Surgery Reason Comments Referral Information Consult to Obstetri cs & Gynecology Reason Comments Follow Up Back pain from fall Reason Onset Date Comments Refill Request 10/07/2022 cymbalta Reason Onset Date Comments Refill Request 10/12/2022 bupropion Reason Onset Date Comments Refill Request 10/12/2022 metoprolol Reason Onset Date Comments Refill Request 10/24/2022 Multiple Reason Comments Opened In Error Reason Onset Date Comments Refill Request 11/02/2022 cymbalta Reason Onset Date Comments Refill Request 11/02/2022 flexeril Reason Onset Date Comments Refill Request 11/07/2022 wellbutrin Reason Onset Date Comments Refill Request 11/10/2022 metoprolol Succ ER Reason Onset Date Comments Refill Request 11/11/2022 multiple Reason Onset Date Comments Refill Request 11/11/2022 naproxen Reason Onset Date Comments Refill Request 11/11/2022 multiple medicat ions Reason Onset Date Comments Refill Request 12/02/2022 multiple Reason Onset Date Comments Refill Request 12/07/2022 Invokana Reason Comments No Show Reason Onset Date Comments Refill Request 12/21/2022 Lisinopril Reason Onset Date Comments Refill Request 12/28/2022 metformin Reason Onset Date Comments Refill Request 01/04/2023 Reason Onset Date Comments Refill Request 01/03/2023 duloxetine, bupr opion Reason Comments New Patient Evaluation Reason Onset Date Comments Refill Request 01/10/2023 multiple Reason Onset Date Comments Refill Request 01/13/2023 ibuprofen Reason Onset Date Comments Refill Request 02/02/2023 multiple Reason Onset Date Comments Refill Request 02/02/2023 Reason Comments Patient Update Reason Onset Date Comments Refill Request 02/10/2023 wellbutrin Reason Onset Date Comments Refill Request 03/10/2023 multiple medicat ions Reason Onset Date Comments Refill Request 03/09/2023 multiple medicat ions Refill Request 03/10/2023 Reason Comments Established Patient Reason Comments Insurance Authorization [employer]- denied Reason Onset Date Comments Refill Request 05/29/2023 Multiple Reason Comments Other Reason Comments Missed Appointment Reason Comments Medication Follow-up Anxiety Reason Comments Referral Information Consult to psychiat ry Reason Onset Date Comments Refill Request 08/07/2023 Reason Onset Date Comments Refill Request 08/21/2023 Reason Comments Appointment Reminder Reason Onset Date Comments No Show 09/27/2023 No show Reason Comments Sore Throat Pt reports sore thro at, cough, headache, body aches and fatigue x2 days. Reason Onset Date Comments Refill Request 10/13/2023 Reason Comments Nausea Diarrhea Nasal Congestion Patient has had diar danya, nausea, nasal congestion, and trouble taking deep breathes because her lungs feel tight. 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 Layer And Examiner Relationship Specialty Start Date End Date Immanuel Morin MD [address] [place] [address] PCP - General Internal Medicine 07/18/22 Yesy Fernandez DO [address] [place] [address] Internal Medicine 07/18/22 Soft Work Wrapper Layer And Examiner Relationship Specialty Start Date End Date Immanuel Morin MD [address] [place] [address] PCP - General Internal Medicine 07/18/22 Yesy Fernandez DO [address] [place] [address] Internal Medicine 07/18/22 Yesy Fernandez, [address] [place] [address] Resident Internal Medicine 08/11/22 Soft Work Wrapper Layer And Examiner Relationship Specialty Start Date End Date Immanuel Morin MD [address] [place] [address] PCP - General Internal Medicine 07/18/22 Yesy Fernandez, [address] [place] [address] PCP Resident Internal Medicine 07/18/22 Yesy Fernandez, [address] [place] [address] Resident Internal Medicine 08/11/22 Soft Work Wrapper Layer And Examiner Relationship Specialty Start Date End Date Immanuel Morin MD [address] [place] [address] PCP - General Internal Medicine 07/18/22 Yesy Fernandez, DO [address] [place] [address] PCP Resident Internal Medicine 07/18/22 Yesy Fernandez, DO [address] [place] [address] Resident Internal Medicine 08/11/22 Soft Work Wrapper Layer And Examiner Relationship Specialty Start Date End Date Immanuel Morin MD [address] [place] [address] PCP - General Internal Medicine 07/18/22 Yesy Fernandez DO [address] [place] [address] PCP Resident Internal Medicine 07/18/22 Yesy Fernandez, [address] [place] [address] Resident Internal Medicine 08/11/22 Soft Work Wrapper Layer And Examiner Relationship Specialty Start Date End Date Immanuel Morin MD [address] [place] [address] PCP - General Internal Medicine 07/18/22 Yesy Fernadnez, [address] [place] [address] PCP Resident Internal Medicine 07/18/22 Yesy Fernandez, [address] [place] [address] Resident Internal Medicine 08/11/22 Soft Work Wrapper Layer And Examiner Relationship Specialty Start Date End Date Immanuel Morin MD [address] [place] [address] PCP - General Internal Medicine 07/18/22 Yesy Fernandez, DO [address] [place] [address] PCP Resident Internal Medicine 07/18/22 Yesy Fernandez, DO [address] [place] [address] Resident Internal Medicine 08/11/22 Soft Work Wrapper Layer And Examiner Relationship Specialty Start Date End Date Immanuel Morin MD [address] [place] [address] PCP - General Internal Medicine 07/18/22 Yesy Fernandze, DO [address] [place] [address] PCP Resident Internal Medicine 07/18/22 Yesy Fernandez, DO [address] [place] [address] Resident Internal Medicine 08/11/22 Soft Work Wrapper Layer And Examiner Relationship Specialty Start Date End Date Immanuel Morin MD [address] [place] [address] PCP - General Internal Medicine 07/18/22 Yesy Fernandez, DO [address] [place] [address] PCP Resident Internal Medicine 07/18/22 Yesy Fernandez, DO [address] [place] [address] Resident Internal Medicine 08/11/22 Soft Work Wrapper Layer And Examiner Relationship Specialty Start Date End Date Immanuel Morin MD [address] [place] [address] PCP - General Internal Medicine 07/18/22 Yesy Fernandez, DO [address] [place] [address] PCP Resident Internal Medicine 07/18/22 Yesy Fernandez, DO [address] [place] [address] Resident Internal Medicine 08/11/22 Soft Work Wrapper Layer And Examiner Relationship Specialty Start Date End Date Immanuel Morin MD [address] [place] [address] PCP - General Internal Medicine 07/18/22 Yesy Fernandez, DO [address] [place] [address] PCP Resident Internal Medicine 07/18/22 Yesy Fernandez, DO [address] [place] [address] Resident Internal Medicine 08/11/22 Soft Work Wrapper Layer And Examiner Relationship Specialty Start Date End Date Immanuel Morin MD [address] [place] [address] PCP - General Internal Medicine 07/18/22 Yesy Fernandez, [address] [place] [address] PCP Resident Internal Medicine 07/18/22 Yesy Fernandez, DO [address] [place] [address] Resident Internal Medicine 08/11/22 Soft Work Wrapper Layer And Examiner Relationship Specialty Start Date End Date Immanuel Morin MD [address] [place] [address] PCP - General Internal Medicine 07/18/22 Yesy Fernandez DO [address] [place] [address] PCP Resident Internal Medicine 07/18/22 Yesy Fernandez, DO [address] [place] [address] Resident Internal Medicine 08/11/22 Soft Work Wrapper Layer And Examiner Relationship Specialty Start Date End Date Immanuel Morin MD [address] [place] [address] PCP - General Internal Medicine 07/18/22 Yesy Fernandez, DO [address] [place] [address] PCP Resident Internal Medicine 07/18/22 Yesy Fernandez, DO [address] [place] [address] Resident Internal Medicine 08/11/22 Soft Work Wrapper Layer And Examiner Relationship Specialty Start Date End Date Immanuel Morin MD [address] [place] [address] PCP - General Internal Medicine 07/18/22 Yesy Fernandez, [address] [place] [address] PCP Resident Internal Medicine 07/18/22 Yesy Fernandez, DO [address] [place] [address] Resident Internal Medicine 08/11/22 Soft Work Wrapper Layer And Examiner Relationship Specialty Start Date End Date Immanuel Morin MD [address] [place] [address] PCP - General Internal Medicine 07/18/22 Yesy Fernandez DO [address] [place] [address] PCP Resident Internal Medicine 07/18/22 Yesy Fernandez, DO [address] [place] [address] Resident Internal Medicine 08/11/22 Soft Work Wrapper Layer And Examiner Relationship Specialty Start Date End Date Immanuel Morin MD [address] [place] [address] PCP - General Internal Medicine 07/18/22 Yesy Fernandez, [address] [place] [address] PCP Resident Internal Medicine 07/18/22 Yesy Fernandez, [address] [place] [address] Resident Internal Medicine 08/11/22 Soft Work Wrapper Layer And Examiner Relationship Specialty Start Date End Date Immanuel Morin MD [address] [place] [address] PCP - General Internal Medicine 07/18/22 Yesy Fernandez, DO [address] [place] [address] PCP Resident Internal Medicine 07/18/22 Yesy Fernandez, DO [address] [place] [address] Resident Internal Medicine 08/11/22 Soft Work Wrapper Layer And Examiner Relationship Specialty Start Date End Date Immanuel Morin MD [address] [place] [address] PCP - General Internal Medicine 07/18/22 Yesy Fernandez, DO [address] [place] [address] PCP Resident Internal Medicine 07/18/22 Yesy Fernandez, DO [address] [place] [address] Resident Internal Medicine 08/11/22 Soft Work Wrapper Layer And Examiner Relationship Specialty Start Date End Date Immanuel Morin MD [address] [place] [address] PCP - General Internal Medicine 07/18/22 Yesy Fernandez, DO [address] [place] [address] PCP Resident Internal Medicine 07/18/22 Yesy Fernandez, DO [address] [place] [address] Resident Internal Medicine 08/11/22 Soft Work Wrapper Layer And Examiner Relationship Specialty Start Date End Date Immanuel Morin MD [address] [place] [address] PCP - General Internal Medicine 07/18/22 Yesy Fernandez, DO [address] [place] [address] PCP Resident Internal Medicine 07/18/22 Yesy Fernandez, DO [address] [place] [address] Resident Internal Medicine 08/11/22 Soft Work Wrapper Layer And Examiner Relationship Specialty Start Date End Date Immanuel Morin MD [address] [place] [address] PCP - General Internal Medicine 07/18/22 Yesy Fernandez, [address] [place] [address] PCP Resident Internal Medicine 07/18/22 Yesy Fernandez, [address] [place] [address] Resident Internal Medicine 08/11/22 Soft Work Wrapper Layer And Examiner Relationship Specialty Start Date End Date Immanuel Morin MD [address] [place] [address] PCP - General Internal Medicine 07/18/22 Yesy Fernandez, [address] [place] [address] PCP Resident Internal Medicine 07/18/22 Yesy Fernandez, DO [address] [place] [address] Resident Internal Medicine 08/11/22 Soft Work Wrapper Layer And Examiner Relationship Specialty Start Date End Date Immanuel Morin MD [address] [place] [address] PCP - General Internal Medicine 07/18/22 Yesy Fernandez, DO [address] [place] [address] PCP Resident Internal Medicine 07/18/22 Daniel Fernandezhel, DO [address] [place] [address] [facility] [place] [address] Resident Internal Medicine 08/11/22 Soft Work Wrapper Layer And Examiner Relationship Specialty Start Date End Date José Bernard MD [address] [place] [address] PCP - General Internal Medicine 05/27/23 King Yesy, [address] [place] [address] PCP Resident Internal Medicine 07/18/22 Yesy Fernandez, [address] [place] [address] Resident Internal Medicine 08/11/22 Soft Work Wrapper Layer And Examiner Relationship Specialty Start Date End Date Immanuel Morin MD [address] [place] [address] PCP - General Internal Medicine 07/18/22 05/26/23 José Bernard MD [address] [place] [address] PCP - General Internal Medicine 05/27/23 Yesy Fernandez, [address] [facility] [place] [address] PCP Resident Internal Medicine 07/18/22 Jim Yesy, 1 [facility] [address] Resident Internal Medicine 08/11/22 Soft Work Wrapper Layer And Examiner Relationship Specialty Start Date End Date José Bernard MD [address] [place] [address] PCP - General Internal Medicine 05/27/23 Yesy Fernandez, 1 [facility] [place] [address] PCP Resident Internal Medicine 07/18/22 Yesy Fernandez, [address] [place] [address] Resident Internal Medicine 08/11/22 Soft Work Wrapper Layer And Examiner Relationship Specialty Start Date End Date José Bernard MD 1 [facility], [place] [id number] [phone] PCP - General Internal Medicine 05/27/23 Yesy Fernandez DO [address] [place] [address] PCP Resident Internal Medicine 07/18/22 Yesy Fernandez DO [address] [place] [address] Resident Internal Medicine 08/11/22 Soft Work Wrapper Layer And Examiner Relationship Specialty Start Date End Date José Bernard MD [address] [place] [address] PCP - General Internal Medicine 05/27/23 Yesy Fernandez DO [address] [place] [address] PCP Resident Internal Medicine 07/18/22 Yesy Fernandez DO [address] [place] [address] Resident Internal Medicine 08/11/22 Soft Work Wrapper Layer And Examiner Relationship Specialty Start Date End Date José Bernard MD [address] [place] [address] PCP - General Internal Medicine 05/27/23 Yesy Fernandez DO [address] [place], [place] [id number] PCP Resident Internal Medicine 07/18/22 Yesy Fernandez DO [address] [place] [facility] [place], [place] [id number] Resident Internal Medicine 08/11/22 Soft Work Wrapper Layer And Examiner Relationship Specialty Start Date End Date José Bernard MD 1 [place], [place] [id number] PCP - General Internal Medicine 05/27/23 Yesy Fernandez DO 1 [facility] [place], [place] [id number] PCP Resident Internal Medicine 07/18/22 Yesy Fernandez DO 1 [place], [place] [id number] Resident Internal Medicine 08/11/22 Soft Work Wrapper Layer And Examiner Relationship Specialty Start Date End Date José Bernard MD [address] [place], [place] [id number] PCP - General Internal Medicine 05/27/23 Yesy Fernandez DO 1 [place], [place] [id number] PCP Resident Internal Medicine 07/18/22 Yesy Fernandez DO 1 [place], [place] [id number] [phone] Resident Internal Medicine 08/11/22 Soft Work Wrapper Layer And Examiner Relationship Specialty Start Date End Date José Bernard MD [address] [place], [place] [id number] PCP - General Internal Medicine 05/27/23 Yesy Fernandez DO [address] [place] [address] PCP Resident Internal Medicine 07/18/22 Yesy Fernandez DO [address] [place] [address] Resident Internal Medicine 08/11/22 Soft Work Wrapper Layer And Examiner Relationship Specialty Start Date End Date José Bernard MD [address] [place], [place] [id number] [phone] PCP - General Internal Medicine 05/27/23 Yesy Fernandez DO [address] [place] [id number] [phone] PCP Resident Internal Medicine 07/18/22 Yesy Fernandez DO [address] [place] [facility] [place] [address] Resident Internal Medicine 08/11/22 Soft Work Wrapper Layer And Examiner Relationship Specialty Start Date End Date System, Provider Not In PCP - General Internal Medicine 10/06/23 Soft Work Wrapper Layer And Examiner Relationship Specialty Start Date End Date José Bernard MD [address] [place] [address] PCP - General Internal Medicine 05/27/23 Yesy Fernandez DO [address] [place] [facility] [place] [address] PCP Resident Internal Medicine 07/18/22 Yesy Fernandez DO [address] [place] [address] Resident Internal Medicine 08/11/22 Soft Work Wrapper Layer And Examiner Relationship Specialty Start Date End Date José Bernard MD [address] [place], [place] [id number] PCP - General Internal Medicine 05/27/23 Yesy Fernandez DO 1 [place], [place] [id number] PCP Resident Internal Medicine 07/18/22 Yesy Fernandez DO 1 [place], [place] [id number] Resident Internal Medicine 08/11/22 Soft Work Wrapper Layer And Examiner Relationship Specialty Start Date End Date Yesy Fernandez DO [address] [place] [id number] PCP - General Other 10/09/23 Soft Work Wrapper Layer And Examiner Relationship Specialty Start Date End Date José Bernard MD 1 [place], [place] [id number] PCP - General Internal Medicine 05/27/23 Yesy Fernandez DO 1 [place], [place] [id number] PCP Resident Internal Medicine 07/18/22 Yesy Fernandez DO 1 [place], [place] [id number] Resident Internal Medicine 08/11/22 <item> Privacy Markings (unrecogniz ed section and content) Section Author: Susanne Peoples PROHIBITION ON REDISCLOSURE OF CONFIDENTIAL INFORMATION This notice accompanies a disclosure of information concerning a client made to you with the consent of such client. Scheduled Active and Recently Administ ered Medications (unrecognized section and content) FOR RECORDS PERTAINING TO PATIENTS WHO ARE OR HAVE BEEN ENROLLED IN A CHEMICAL DEPENDENCY/SUBSTANCEABUSE PROGRAM, SOME INFORMATION MAY BE OMITTED. This clinical summary was aggregated from multiple sources. Caution should be exercised in using it in the provision of clinical care. This summary normalizes information from multiple sources, and as a consequence, information in this document may materially change the coding, format and clinical context of patient data. In addition, data may be omitted in some cases. CLINICAL DECISIONS SHOULD BE BASED ON THE PRIMARY CLINICAL RECORDS. [facility] [employer] [facility]. provides no warranty or guarantee of the accuracy or completeness of information in this document.
[2024-01-07 00:19] VITALS: BP 135/79; PULSE 81; RESP 18; O2SAT 97
== END 2024-01-07 00:29 | disposition home or self-care (01) ==
PROVIDERS: Emergency Provider Emergency Medicine; Visit Provider Emergency Medicine
DX: S09.90XA Unspecified injury of head, initial encounter (principal); E11.9 Type 2 diabetes mellitus without complications; S16.1XXA Strain of muscle, fascia and tendon at neck level, initial encounter; W10.8XXA Fall (on) (from) other stairs and steps, initial encounter; Y92.008 Other place in unspecified non-institutional (private) residence as the place of occurrence of the external cause; I10 Essential (primary) hypertension; E78.2 Mixed hyperlipidemia; Z79.84 Long term (current) use of oral hypoglycemic drugs; Z79.899 Other long term (current) drug therapy
CPT/HCPCS: 70450; 71260; 72125; 74177; 80048; 80076; 84703; 85025; 85610; 85730; 96360; 96361; 99284; J7030; Q9967; A4216

== ENCOUNTER 2024-04-30 15:52 | Emergency (ER) | payer MEDICAID, SELFPAY ==
[2024-04-30 15:53] VITALS: BP 152/90; PULSE 89; RESP 18; TEMP 36.9; O2SAT 99; BMI 36.3
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
[2024-04-30 17:54] LABS: Mucous, Urine 0 SEEN /hpf (<or=2+); Red Blood Cells-Urine 0 SEEN /hpf (0-5)
[2024-04-30 17:55] VITALS: BP 117/80; BP 121/84; BP 144/89; PULSE 78; PULSE 84; PULSE 87
[2024-04-30 17:58] LABS: Absolute Lymphocyte Count 2.81 X10^3/uL (0.83-4.51); Absolute Neutrophil Count 6.4 X10^3/uL (2.0-7.7); Basophil# 0.06 X10^3/uL; Basophil% 0.6 % (0-1); Hematocrit 47.2 % (37-47); Hemoglobin 15.2 g/dL (12.0-15.0); Lymphocyte # 2.81 X10^3/ul (0.83-4.51); Lymphocyte % 27.7 % (19-41); Mean Corp Hgb Conc 32.2 g/dL (32-36); Mean Corpuscular Hgb 29.2 pg (27.0-32.0); Mean Corpuscular Volume 90.6 fL (81-99); Mean Platelet Vol. 9.2 fl (6.2-12.0); Monocyte% 5.9 % (0-10); NRBC Flagged by Analyzer 0 % (0-5); Neutrophil # 6.44 X10^3/uL (2.7-7.7); Neutrophil % 63.6 % (47-70); Platelet Count 411 K/mm3 (150-450); RBC Distribution Width CV 12.8 % (11.6-14.6); RBC Distribution Width SD 41.7 fl (35.1-43.9); Red Blood Count 5.21 M/mm3 (4.2-5.4); White Blood Count 10.1 K/mm3 (4.4-11.0)
--- NOTE | 2024-04-30 18:00 | RAD_ITS ---
STUDY: X-RAY CHEST REASON FOR EXAM: Female, 38 years old. lightheaded TECHNIQUE: Single AP portable view of the chest. COMPARISON: None. FINDINGS: The lungs are clear and expanded. There is no demonstrated pleural abnormality. Normal size heart. Normal mediastinum and tammy. Normal visualized pulmonary arteries. Normal visualized aortic arch and descending thoracic aorta. Normal visualized thoracic spine. Normal visualized ribs, clavicles, and shoulders. There is no demonstrated abnormality of the visualized soft tissue structures of the upper abdomen. RAD/Chest 1 View (Portable) IMPRESSION: Normal x-ray examination of the chest. Electronically Signed: Beto Erickson MD at 18:19 EDT ,
[2024-04-30] MEDS: 0.9% Normal Saline (1000mL) 1,000 ML 999 ML IV (18:09)
[2024-04-30] MEDS: Ketorolac 15 MG/ML Vial IV (18:10)
[2024-04-30] MEDS: DiphenhydrAMINE 50 MG/ML Syringe 25 MG IV (18:11)
[2024-04-30] MEDS: Metoclopramide 10 MG/2 ML Vial IV (18:13)
[2024-04-30 18:16] VITALS: BP 129/86; PULSE 90; RESP 16; TEMP 36.4; O2SAT 100
[2024-04-30 18:16] LABS: Anion Gap 5 (5-15); BUN 14 mg/dL (7-18); Calcium,Total 9.4 mg/dL (8.5-10.1); Chloride 107 mmol/L (98-107); Creatinine, Serum 1.08 mg/dL (0.55-1.02); EST Glomerular Filtration Rate 59 mL/min (>60); Est Glom Filt Rate - Afr Amer 72 mL/min (>60); Estimated Creatinine Clearance 98.16 ml/min; Glucose 70 mg/dL (74-106); Potassium 3.5 mmol/L (3.5-5.1); Sodium Level 138 mmol/L (136-145); Troponin-I HS (w/2H Reflex) 3 pg/mL (3.0-54.0)
[2024-04-30 18:17] LABS: Color, Urine Yellow (Yellow); Glucose, Dipstick Normal (Normal); Ketone-Dipstick Negative (Negative); Leukocyte Esterase-Dipstick 25 /ul (Negative); Nitrite-Dipstick Negative (Negative); Occult Blood-Urine Negative /ul (Negative); Protein-Dipstick Negative (Negative); Urine Bilirubin Dipstick Negative (Negative); Urine Clarity Clear (Clear); Urine Urobilinogen Normal (Normal); Urine pH 6.5 (5.0 - 8.0)
[2024-04-30 19:06] LABS: Bacteria 1+ /hpf (None Seen); Squamous Epithelial Cells - UA 0-5 SEEN /hpf (5-10); White Blood Cells 5-10 SEEN /hpf (0-5)
[2024-04-30] MEDS: dexAMETHasone 4 MG/ML Vial IV (19:33)
[2024-04-30 19:38] VITALS: BP 121/85; PULSE 86; RESP 16; O2SAT 100
[2024-04-30 19:53] LABS: Reflex Troponin-HS? (from REC) Y
[2024-04-30 20:10] VITALS: BP 137/92; PULSE 82; RESP 16; TEMP 36.8; O2SAT 97
== END 2024-04-30 20:15 | disposition home or self-care (01) ==
PROVIDERS: Emergency Provider Student in an Organized Health Care Education/Training Program; Visit Provider Student in an Organized Health Care Education/Training Program
DX: R51.9 Headache, unspecified (principal); E11.9 Type 2 diabetes mellitus without complications; R42 Dizziness and giddiness; I10 Essential (primary) hypertension; E78.2 Mixed hyperlipidemia; Z79.84 Long term (current) use of oral hypoglycemic drugs; Z79.899 Other long term (current) drug therapy; Z79.85 Long-term (current) use of injectable non-insulin antidiabetic drugs
CPT/HCPCS: 71045; 80048; 81001; 84484; 85025; 96361; 96374; 96375; 99283; J7030; A4216

== ENCOUNTER 2024-08-03 18:24 | Emergency (ER) | payer MEDICAID, SELFPAY ==
[2024-08-03 18:25] VITALS: BP 147/85; PULSE 101; RESP 17; TEMP 36.1; O2SAT 99; BMI 36.5
--- NOTE | 2024-08-03 19:19 | EX.ED.DYSGE1 ---
HPI History of Present Illness Chief Complaint: Other, Pain/Inj Detail of Chief Complaint: Wound check after panniculectomy surgery Informant: patient and spouse/S.O. Onset/Context/Timing Onset: Today Context: Sudden Onset Current Severity: Mild Maximum Severity: Mild Narrative Narrative: 39-year-old female had recent weight loss over the last year 141 pounds through diet and exercise. She had a lot of leftover skin and had a panniculectomy done at the [facility] 1-1/2 weeks ago. They placed wound drains. Today she had a gush of fluid around the left wound drain. Denies any pus. No fever. No cellulitis. Has not felt ill. Prior similar symptoms: No Recent Illness/Hospitalization: No PFSH PFSH Medical History Hypertension Other [facility] (current) drug therapy Migraine without aura, not intractable, without status migrainosus Major depressive disorder, recurrent, moderate Mixed hyperlipidemia Vitamin D deficiency, unspecified Type 2 diabetes mellitus with hyperglycemia Fibromyalgia Physical exam, pre-employment Home Medications ?Medication ?Instructions ?Recorded ?Last Taken ?Type metformin 1,000 mg tablet 1,000 mg PO DAILY 07/04/22 Unknown History metoprolol succinate 100 mg 100 mg PO DAILY 07/04/22 Unknown History capsule sprinkle, ext. release 24 hr tirzepatide 12.5 mg/0.5 mL 2.5 mg subcut QWEEK 09/22/23 Unknown History subcutaneous pen injector (Mounjaro) Allergy/AdvReac Type Severity Reaction Status Date / Time Dihydroaminopryidine Allergy Rash Verified 08/03/24 18:25 Antibiotics hydrocodone Allergy Hives Verified 08/03/24 18:25 Sulfa (Sulfonamide Allergy Hives Verified 08/03/24 18:25 Antibiotics) sulfamethoxazole (From Allergy Hives Verified 08/03/24 18:25 Bactrim) trimethoprim (From Bactrim) Allergy Hives Verified 08/03/24 18:25 bupropion (From Wellbutrin) AdvReac Intermediate Other Verified 08/03/24 18:25 Social History household members: spouse and none housing: house Smoking Status: Never smoker substance use type: does not use ROS ROS ED ROS Narrative Denies recent illness. No fever. Constitutional Constitutional ED: Denies chills or fever(s) Eyes Eyes: Denies blurry vision ENT ENT ED: Denies ear pain Cardiovascular Cardiovascular: Denies chest pain Respiratory/Chest Respiratory/Chest: Denies cough or dyspnea Gastrointestinal Gastrointestinal: Denies abdominal pain Genitourinary Genitourinary ED: Denies dysuria or hematuria Musculoskeletal Musculoskeletal: Denies arthralgias or back pain Integumentary Denies abscess or Abrasions Neurologic Neurologic: Denies headache(s) Psychiatric Psychiatric: Denies anxiety Endocrine Endocrinology: Denies cold intolerance Hematologic/Lymphatic Hematologic/Lymphatic: Reports none Allergic/Immunologic Allergic/Immunologic ED: Denies mouth swelling, tongue swelling or urticaria EXAM Physical Exam Narrative Exam Narrative: Well-appearing 39-year-old female. Vital signs stable afebrile. H EENT exam unremarkable. Neck nontender. Lungs clear. Heart regular rhythm rate about 100 no murmur. Chest wall ribs nontender. Abdomen soft nondistended normal bowel sounds without peritoneal signs. Very well-healing lower abdominal horizontal incision. Clean and dry. No cellulitis. No pus. Minimal postop tenderness. She has a wound drain on the right flank and also the left flank. Both have 10 cc of serosanguineous fluid. No pus. Both sites are dry and clean. No cellulitis. We will clean and replace the OpSite's. Moving all 4 extremities. Nontender no edema. She is awake and alert. All the surgical incisions and drain sites look excellent. Const Vital Signs: 08/03/24 18:25 Temperature 97 F L Temperature Source Temporal Pulse Rate 101 H Respiratory Rate 17 Blood Pressure 147/85 H Blood Pressure Mean 105 Pulse Ox 99 Oxygen Delivery Method Room Air Positive well nourished and well developed; Negative for cachectic, contractures or unkempt General Appearance ED: well developed and NAD; Negative for unkempt, cachectic, contractures, cyanotic, diaphoretic or pallor Nutritional Appearance: Negative for cachectic HEENT Reports moist mucous membranes Negative for trauma or tenderness Eyes PERRL and EOMs intact bilaterally General Eye ED: Negative for pale conjunctiva or scleral icterus Neck no lymphadenopathy, supple and no JVD General: Negative for tenderness Lymph Lymphatic: Negative for other Chest Wall inspection of chest normal and palpation of chest normal Chest: Negative for other Resp normal respiratory effort and clear to auscultation bilaterally Auscultation: Negative for rales, rhonchi or wheezes Cardio regular rate, regular rhythm, S1 normal heart sound, S2 normal heart sound and no murmurs Palpation: Negative for palpable S3 or palpable S4 Rate: Negative for bradycardia or tachycardic Rhythm: Negative for abnormal rhythm GI normal to inspection, nondistended, normoactive bowel sounds, non-tender, non-distended and no masses GI Narrative: Well-healing horizontal lower abdominal panniculectomy surgical incision. Dry and clean. Bilateral wound drains on the right and left flank. Sites look good and clean. Serosanguineous drainage. No pus. No cellulitis. Palpation: soft and tender; Negative for guarding or rebound tenderness present Back/Spine no CVA tenderness General Back: Negative for CVA tenderness Cervical Spine: Negative for cervical spine tenderness Thoracic Spine / Upper Back: Negative for thoracic spinal tenderness Lumbar Spine / Lower Back: Negative for lumbar spinal tenderness Extremity normal to inspection General Extremety ED: Negative for edema, tenderness or other findings General Extremity: Negative for edema or other findings Neuro oriented x3 and CN's II-XII intact bilaterally Sensorium / Orientation: alert; Negative for orientation impaired, lethargic or stuporous Motor Exam: strength 5/5 throughout; Negative for general weakness Psych mental status grossly normal Appearance: Negative for unkempt Attitude: No agitated Mood & Affect: Negative for depressed, anxious or tearful Skin no rashes or lesions noted, no wounds and skin turgor normal General Skin Exam: Negative for jaundice or pallor Lesions: No lesion noted Rashes: No rashes noted Trauma: Negative for abrasion Wounds: Negative for wounds noted MDM MDM MDM Narrative Medical decision making narrative: Wound check after panniculectomy surgery. Has some drainage at the drain sites. Looks like serosanguineous drainage. No cellulitis. No pus. [facility] with a scheduled appointment later this week. She does not need any imaging or test at this time. Discharge Plan Triage Chief Complaint: Other, Pain/Inj ED Provider: Liban Hooper Dx/Rx/DC Orders Clinical Impression: Encounter for post surgical wound check, History of diabetes mellitus Instructions: ED Wound Care Prescriptions: No Action metformin 1,000 mg Tablet 1,000 mg PO DAILY metoprolol succinate 100 mg Capsule,Sprinkle,Er 24hr 100 mg PO DAILY Mounjaro 12.5 mg/0.5 mL pen injector 2.5 mg SUBCUT QWEEK Patient Comments: inject 1 dose subcutaneously ONCE A WEEK, mondays Primary Care Provider: Care Physician,No Primary Referrals: Care Physician,No Primary [Primary Care Provider] - Activity Restrictions/Additional Instructions: Everything actually looks really good. Your wound looks good. Your surgical incision site looks good. There is no signs of infection. This is normal serosanguineous drainage or body fluid with some blood and drainage. It does not look infected. Follow your discharge instructions from the [facility]. Follow-up with your plastic surgeon as scheduled later this week. Print Language: Chinese Disposition Disposition: Home, Self Care
[2024-08-03 19:26] VITALS: BP 132/80; PULSE 87; RESP 18; TEMP 36.6; O2SAT 99
[2024-08-03 19:30] VITALS: BP 132/80; PULSE 87; RESP 18; TEMP 36.6; O2SAT 99
== END 2024-08-03 19:32 | disposition home or self-care (01) ==
PROVIDERS: Emergency Provider Emergency Medicine; Visit Provider Emergency Medicine
DX: Z48.01 Encounter for change or removal of surgical wound dressing (principal); E11.9 Type 2 diabetes mellitus without complications; I10 Essential (primary) hypertension; Z79.84 Long term (current) use of oral hypoglycemic drugs; Z79.899 Other long term (current) drug therapy
CPT/HCPCS: 99283

== ENCOUNTER 2024-08-05 12:04 | Emergency (ER) | payer MEDICAID, SELFPAY ==
[2024-08-05 12:05] VITALS: BP 112/92; PULSE 121; RESP 20; TEMP 37.9; O2SAT 95; BMI 35.9
== END 2024-08-05 13:21 | disposition left against medical advice (07) ==
LOC: ED 13:19
DX: Z53.21 Procedure and treatment not carried out due to patient leaving prior to being seen by health care provider (principal)

== ENCOUNTER 2025-08-27 11:19 | Emergency (ER) | payer MEDICAID, SELFPAY ==
[2025-08-27 11:20] VITALS: BP 154/98; PULSE 77; RESP 18; TEMP 36.6; O2SAT 100; BMI 37.3
--- NOTE | 2025-08-27 13:24 | RAD_ITS ---
PROCEDURE: ACUTE ABDOMEN INC CHEST 08/27/2025 REASON FOR EXAM: PAIN TECHNIQUE: Procedure Code: RADABDCA Modality: DX Procedure: ACUTE ABDOMEN INC CHEST COMPARISON: Previous CT from 2023 FINDINGS: Hardware: None Heart: The heart size is normal. Lungs: The lungs are clear. Bowel gas: No evidence of ileus or obstruction retained stool noted throughout the colon Free air: None Calcifications: No suspicious calcifications Bones: Mild degenerative bony changes Other: RAD/Acute Abdomen Inc Chest IMPRESSION: No acute pulmonary process No acute abdominal or pelvic process Retained stool Reading Location: [id number]
--- NOTE | 2025-08-27 13:58 | EX.ED.DYSGE1 ---
HPI History of Present Illness Chief Complaint: Foreign Body Informant: patient Onset/Context/Timing Onset: Today Context: Sudden Onset Timing: Continuous Quality: Sharp Location: Epigastric area Worsened by: Movement, drinking Relieved by: Nothing Narrative Narrative: Patient presents with upper abdominal pain that began today. Patient states she drank a protein shake and noted some broken pieces of plastic in the shake. Patient thinks she may have drank some of the plastic pieces. Patient states her pain is sharp. Patient states the pain is over the epigastric area. Patient states her pain is worse with any movement or with drinking water. Patient states nothing makes it better. Patient denies any fevers or chills. Patient denies any nausea or vomiting. Patient does admit to some pain in her throat because she thinks the piece of plastic may have scratched her throat. [facility] Medical History (Updated 08/27/25 @ 15:[address] Willie Henao, DO) Hypertension Other usp (current) drug therapy Migraine without aura, not intractable, without status migrainosus Major depressive disorder, recurrent, moderate Mixed hyperlipidemia Vitamin D deficiency, unspecified Type 2 diabetes mellitus with hyperglycemia Fibromyalgia Physical exam, pre-employment Home Medications ?Medication ?Instructions ?Recorded ?Last Taken ?Type metformin 1,000 mg tablet 1,000 mg PO DAILY 07/04/22 Unknown History metoprolol succinate 100 mg 100 mg PO DAILY 07/04/22 Unknown History capsule sprinkle, ext. release 24 hr tirzepatide 12.5 mg/0.5 mL 2.5 mg subcut QWEEK 09/22/23 Unknown History subcutaneous pen injector (Mounjaro) Allergy/AdvReac Type Severity Reaction Status Date / Time Dihydroaminopryidine Allergy Rash Verified 08/27/25 11:20 Antibiotics hydrocodone Allergy Hives Verified 08/27/25 11:20 Sulfa (Sulfonamide Allergy Hives Verified 08/27/25 11:20 Antibiotics) sulfamethoxazole (From Allergy Hives Verified 08/27/25 11:20 Bactrim) trimethoprim (From Bactrim) Allergy Hives Verified 08/27/25 11:20 bupropion (From Wellbutrin) AdvReac Intermediate Other Verified 08/27/25 11:20 azithromycin AdvReac Diarrhea Verified 08/27/25 11:20 Surgical History (Updated 08/27/25 @ 15:[address] Willie Henao DO) S/P panniculectomy Hx of bilateral breast reduction surgery History of hysterectomy History of 3 sections Social History household members: spouse and none housing: house Smoking Status: Never smoker substance use type: does not use ROS ROS ED Constitutional Constitutional ED: Denies chills or fever(s) Eyes Eyes: Denies blurry vision or change in vision ENT ENT ED: Reports sore throat; Denies rhinorrhea Cardiovascular Cardiovascular: Denies chest pain or palpitations Respiratory/Chest Respiratory/Chest: Denies cough or dyspnea Gastrointestinal Gastrointestinal: Reports abdominal pain; Denies nausea or vomiting Genitourinary Genitourinary ED: Denies dysuria or hematuria Musculoskeletal Musculoskeletal: Denies back pain or neck pain Integumentary Denies abscess or rash Neurologic Neurologic: Denies headache(s) or weakness Allergic/Immunologic Allergic/Immunologic ED: Denies mouth swelling or urticaria EXAM Physical Exam Const Vital Signs: 08/27/25 11:20 08/27/25 12:19 Temperature 97.9 F Temperature Source Temporal Pulse Rate 77 Respiratory Rate 18 Respiratory Effort Normal Blood Pressure 154/98 H Blood Pressure Mean 116 Pulse Ox 100 Oxygen Delivery Method Room Air Positive well nourished and well developed General Appearance ED: well developed and NAD HEENT Reports moist mucous membranes Neck supple and no JVD Resp normal respiratory effort and clear to auscultation bilaterally Cardio regular rate and regular rhythm GI non-distended Palpation: soft and tender epigastric; Negative for guarding or rebound tenderness present Extremity normal to inspection Neuro oriented x3, CN's II-XII intact bilaterally and no sensory deficits noted Sensorium / Orientation: alert Motor Exam: strength 5/5 throughout Psych mental status grossly normal MDM MDM MDM Narrative Medical decision making narrative: Differential diagnosis includes swallowed foreign body, perforation, gastritis, pancreatitis, cholecystitis, cholelithiasis, and electrolyte abnormality. CBC will be obtained to assess for leukocytosis and anemia. Comprehensive metabolic profile will be obtained to assess for hepatic function, renal function, and electrolyte abnormality. Lipase will be obtained to assess for pancreatitis. Acute abdominal x-rays will be obtained to assess for radiopaque foreign body, bowel obstruction, perforation. Lab Data Attestation: I reviewed the patient's lab results. Lab results narrative: CBC was reviewed. Hemoglobin was slightly elevated at 15.1. The remainder is within normal limits. Comprehensive metabolic profile was reviewed and was essentially within normal limits. Lipase was reviewed and was normal at 47. Labs: Laboratory Results - last 24 hr 08/27/25 14:02 WBC 10.3 RBC 5.23 Hgb 15.1 H Hct 46.8 MCV 89.5 MCH 28.9 MCHC 32.3 RDW Std Deviation 43.7 RDW Coeff of Dar 13.3 Plt Count 340 MPV 9.5 Immature Gran % (Auto) 0.200 Neut % (Auto) 64.5 Lymph % (Auto) 25.4 [place] % (Auto) 6.3 Eos % (Auto) 3.1 Baso % (Auto) 0.5 Absolute Neuts (auto) 6.6 Absolute Lymphs (auto) 2.61 Nucleated RBC % 0 Sodium 137 Potassium 4.4 Chloride 103 Carbon Dioxide 20.5 L Anion Gap 13 BUN 17 Creatinine 0.88 Estim Creat Clear Calc 119.59 Est GFR (MDRD) Non-Af 84 BUN/Creatinine Ratio 19.5 Glucose 81 Calcium 9.6 Total Bilirubin 0.71 AST 26 ALT 17 Alkaline Phosphatase 76 Total Protein 7.2 Albumin 4.3 Globulin 2.9 Albumin/Globulin Ratio 1.5 Lipase 47 Radiography Diagnostic Testing: Clinical Impression(s) from Imaging Studies Acute Abdomen Series 08/27/25 13:24 IMPRESSION: No acute pulmonary process No acute abdominal or pelvic process Retained stool Reading Location: [facility] Acute abdominal x-rays were obtained. There are 5 views. On my independent interpretation, there is no acute process noted. There is no free air or air-fluid levels noted. There is no radiopaque foreign body noted. Radiologist also interpreted the x-rays and agrees. Treatment and Re-Evaluation :: Patient was given IV fluids. Patient was given a GI cocktail. Patient was advised of her findings. Patient was instructed to drink plenty of fluids. Patient was instructed to follow-up with her primary care physician in 5 to 7 days. Patient was instructed to return if worse in any way. Patient understood and was agreeable with the plan. All questions were answered. Discharge Plan Triage Chief Complaint: Foreign Body ED Provider: Willie Henao Dx/Rx/DC Orders Clinical Impression: Abdominal pain, Ingestion of foreign body Instructions: ED Swallowed Foreign Body (Adult) Prescriptions: No Action metformin 1,000 mg Tablet 1,000 mg PO DAILY metoprolol succinate 100 mg Capsule,Sprinkle,Er 24hr 100 mg PO DAILY Mounjaro 12.5 mg/0.5 mL pen injector 2.5 mg SUBCUT QWEEK Patient Comments: inject 1 dose subcutaneously ONCE A WEEK, mondays Primary Care Provider: Care Physician,No Primary Referrals: Sebastian Dobbs MD [Med Staff - Engagement Lead, Family Practice] - 5-7 Days Care Physician,No Primary [Primary Care Provider, Medical] Print Language: Turkish Disposition Disposition: Home, Self Care
[2025-08-27 14:11] LABS: Hematocrit 46.8 % (37-47); Hemoglobin 15.1 g/dL (12.0-15.0); Immature Granulocytes Count 0.020 X10^3/uL (0.0-0.0); Mean Corp Hgb Conc 32.3 g/dL (32-36); Mean Corpuscular Volume 89.5 fL (81-99); Mean Platelet Vol. 9.5 fl (6.2-12.0); NRBC Flagged by Analyzer 0 % (0-5); Platelet Count 340 K/mm3 (150-450); RBC Distribution Width CV 13.3 % (11.6-14.6); RBC Distribution Width SD 43.7 fl (35.1-43.9); Red Blood Count 5.23 M/mm3 (4.2-5.4); White Blood Count 10.3 K/mm3 (4.4-11.0)
[2025-08-27 14:27] LABS: AST(SGOT) 26 U/L (<=31); Alanine Aminotransfer ALT/SGPT 17 U/L (<=34); Albumin, Serum 4.3 g/dL (3.5-5.0); Alkaline Phosphatase 76 U/L (35-104); Anion Gap 13 (5-15); BUN 17 mg/dL (4-19); BUN/Creat Ratio 19.5 RATIO (10-20); Calcium,Total 9.6 mg/dL (7.6-11.0); Carbon Dioxide 20.5 mmol/L (21.0-32.0); Chloride 103 mmol/L (98-108); Estimated Creatinine Clearance 119.59 ml/min (50-250); Globulin 2.9 g/dL (2.2-4.2); Glucose 81 mg/dL (70-99); Lipase 47 U/L (13-75); Potassium 4.4 mmol/L (3.3-5.1)
[2025-08-27 15:00] VITALS: BP 142/88; PULSE 78; RESP 16; O2SAT 99
[2025-08-27] MEDS: 0.9% Normal Saline (1000mL) 1,000 ML 999 ML IV (15:00)
[2025-08-27 15:41] VITALS: BP 145/88; PULSE 80; RESP 16; TEMP 36.3; O2SAT 99
[2025-08-27] MEDS: Lidocaine 2% Viscous15 ML UDC 15 ML PO (15:49)
== END 2025-08-27 15:54 | disposition home or self-care (01) ==
PROVIDERS: Emergency Provider Emergency Medicine; Visit Provider Emergency Medicine
DX: R10.9 Unspecified abdominal pain (principal); E11.9 Type 2 diabetes mellitus without complications; T18.9XXA Foreign body of alimentary tract, part unspecified, initial encounter; I10 Essential (primary) hypertension; R07.0 Pain in throat; E78.2 Mixed hyperlipidemia; W44.B0XA Plastic object unspecified, entering into or through a natural orifice, initial encounter
CPT/HCPCS: 74022; 80053; 83690; 85025; 96360; 99283; A4216

== ENCOUNTER 2025-10-04 15:58 | Emergency (ER) | payer MEDICAID, SELFPAY ==
[2025-10-04 15:59] VITALS: BP 126/91; PULSE 84; RESP 18; TEMP 36.9; O2SAT 97
[2025-10-04 16:09] VITALS: BMI 37.4
[2025-10-04 16:14] VITALS: BP 139/76; PULSE 78; RESP 16; O2SAT 99
--- OUTSIDE RECORDS SUMMARY | 2025-10-04 16:25 | XMS RPT_ITS | CCD ---
Author Organization [facility] Care Team Providers Care Oliving Machine Operator Name Role Phone DAVID ROPER~[phone] JUDSON Attending Unavail able DAVID ROPER~[id number] JUDSON Primary Care Unavail able DAVID ROPER~[id number] JUDSON Attending Unavail able DAVID ROPER~[phone] JUDSON Primary Care Unavail able Unavailable Primary Care Provider Unavailmelonie e Mami Morin MD Primary Care Provider Jim DO, Yesy Unavailable Jim DO, Yesy Unavailable Jim DO, Yesy Unavailable Jim DO, Yesy Unavailable Mami Morin MD Primary Care Provider Jim DO, Yesy Unavailable Jim DO, Yesy Unavailable José Elizabeth MD Primary Care Provider Mami Morin MD Primary Care Provider [phone] Ms. Liyah Kwok Attending Unavail able Jim DO, Yesy Unavailable Required, No Pcp Unavailable Unavailable Inder Menard Unavailable System, Provider Not In Primary Care Provider Un available Yesy Fernandez DO D Primary Care Provider Jim DO, Yesy Unavailable José Elizabeth MD Primary Care Provider YESY FERNANDEZ Primary Care Unavailable SANJAY TALBOT Attending Unavailable SYSTEM, PROVIDER NOT IN Primary Care Unavaila ble SANJAY TALBOT Attending Unavailable YESY FERNANDEZ Primary Care Unavailable INDIRA DEGROOT Attending Unavailable LOTFIAN, TED-ALI Primary Care Unavailable Yasmeen Herzog MD Unavailable Jim DO, Yesy Bello Unavailable Unavailable Jim DO, Yesy D Unavailable Unavailable Jim DO, Yesy D Unavailable Unavailable GatherSarah hooper MD Unavailable Joana SPEARS, Ted-Ali Primary Care Provider [phone] Jessica Whitehead DO Primary Care Provider LOTFIAN, TED-ALI Primary Care Unavailable DIWAKAR, FELA Referring Unavailable LOTFIAN, TED-ALI Primary Care Unavailable DIWAKAR, FELA Referring Unavailable LOTFIAN, TED-ALI Primary Care Unavailable JESSICA WHITEHEAD R Primary Care Unavailable DIWAKAR, FELA Referring Unavailable LOTFIAN, TED-ALI Primary Care Unavailable DIWAKAR, FELA Referring Unavailable MARICHUY MICHELLE Attending Unavailable LOTFIAN, TED-ALI Primary Care Unavailable BRANDAN LEAL Referring Unavailable Care Physician, No Primary Primary Care Physicia n Unavailable Dr. Jessica Henao DO Emergency Department Physi [facility] Jessica Henao Attending Unavailable Care Physician, No Primary Primary Care Unava ilable YASMEEN HERZOG Attending Unavailable LOTFIAN, TED-ALI Primary Care Unavailable BENNIE PICHARDO Attending Unavailable LOTFIAN, TED-ALI Primary Care Unavailable BENNIE PICHARDO Attending Unavailable LOTFIAN, TED-ALI Primary Care Unavailable GATHERWRSARAH ACUÑA Attending Unavailabl e LOTFIAN, TED-ALI Primary Care Unavailable GATHERWRSARAH ACUÑA Attending Unavailabl e LOTFIAN, TED-ALI Primary Care Unavailable GATHERSARAH HOOPER Attending Unavailabl e LOTFIAN, TED-ALI Primary Care Unavailable LOTFIAN, TED-ALI Primary Care Unavailable DIWAKAR, FELA Attending Unavailable LOTFIAN, TED-ALI Primary Care Unavailable GATHERSARAH HOOPER Attending Unavailabl e LOTFIAN, TED-ALI Primary Care Unavailable DIEGO, JESSICA R Primary Care Unavailable MARISOL AVENDAÑO Attending UnavailPATRICIA Lacy Attending Unavailable DIEGO, JESSICA R Primary Care Unavailable LOTFIAN, TED-ALI Primary Care Unavailable SARAH JACOME Referring Unavailabl e LOTFIAN, TED-ALI Primary Care Unavailable BENNIE PICHARDO Attending Unavailable GATHERWRSARAH ACUÑA Attending Unavailabl e LOTFIAN, TED-ALI Primary Care Unavailable PATRICIA ALVAREZ Attending Unavailable LOTFIAN, TED-ALI Primary Care Unavailable LOTFIAN, TED-ALI Primary Care Unavailable SARAH JACOME Attending Unavailabl e GATHERWRIGHTSARAH Referring Unavailabl e GATHERWRIGHTSARAH Admitting Unavailabl e FELA GAN Attending Unavailable LOTFIAN, TED-ALI Primary Care Unavailable Allergies Allergy Classification Reported Allergen(s) Allergy Type Date of Onset Reaction(s) Facility (20 sources) HYDROcodone; Translations: [Unknown] Drug Allergy 07-04-20 [facility], [facility] Repository (20 sources) Acetaminophen; Translations: [ACETAMINOPHEN] Drug Allergy 07-04-20 Other: See [facility] (4 sources) oxyCODONE Drug Allergy 07-04-20 [facility] (5 sources) Sulfamethoxazole Drug Allergy 07-04-20 [facility] (20 sources) Sulfonamides (Antibiotic); Translations: [SULFA (SULFONAMIDE ANTIBIOTICS)] Allergy to substance 07-04-20 Diarrhea, Rash [facility] (5 sources) Trimethoprim Drug Allergy 07-04-20 [facility] (20 sources) Dihydroaminopryidine Antibiotics; Translations: [DIHYDROAMINOPRYIDINE ANTIBIOTICS] Allergy to substance 07-04-20 Diarrhea, Hives, Itching, Rash [facility] (20 sources) Acetaminophen / oxyCODONE; Translations: [OXYCODONE-ACETAMINOPHE N] Drug Allergy 07-18-20 Diarrhea, Rash, Vomiting [facility] (20 sources) Sulfamethoxazole / Trimethoprim; Translations: [SULFAMETHOXAZOLE-TRIME THOPRIM] Drug Allergy 07-18-20 Diarrhea, Itching, Rash [facility] (20 sources) liraglutide; Translations: [LIRAGLUTIDE] Drug Allergy 02-04-20 Rash [facility] (20 sources) buPROPion; Translations: [BUPROPION] Drug Allergy 07-20-20 23 Intolerance [facility] Work Phone: Comment on above: increased SI (1 source) Acetaminophen / oxyCODONE Drug Allergy Hives [facility] (1 source) Sulfamethoxazole / Trimethoprim [facility] (20 sources) Azithromycin; Translations: [AZITHROMYCIN] Drug Allergy 10-06-20 Diarrhea [facility] (20 sources) dulaglutide; Translations: [DULAGLUTIDE] Drug Allergy 07-24-20 Rash, Other: See Comments [facility] (20 sources) Erythromycin; Translations: [ERYTHROMYCIN] Drug Allergy 07-24-20 Rash, Diarrhea, Itching [facility] (20 sources) DULoxetine; Translations: [DULOXETINE] Drug Allergy 03-20-20 Rash [facility] Work Phone: (1 source) Azithromycin Drug Allergy 08-27-20 [facility] Repository (1 source) buPROPion Drug Allergy 08-27-20 [facility] Repository (1 source) Sulfamethoxazole Drug Allergy 08-27-20 [facility] Repository (1 source) Trimethoprim Drug Allergy 08-27-20 [facility] Repository Medications Current Medications Medication Drug Class(es) Dates Sig (Normalized) Sig (Original) acetaminophen 500 mg oral tablet (1 source) Start: 01-25-2024 take 2 tablets by mouth every six hours as needed acetaminophen 500 MG tablet Take 2 tablets by mouth every 6 hours as needed for Mild Pain. 30 tablet 01/25/2024 Active [id number] 200 actuat albuterol 0.09 mg/actuat metered dose inhaler (2 sources) beta2-Adrenergi c Agonist Start: 11-08-2023 take 2 puff(s) by inhalation every four hours as needed for wheezing Albuterol 108 (90 Base) MCG/ACT Aero Soln inhaler Inhale 2 puffs every 4 hours as needed for Wheezing. 18 g 11/08/2023 Active cyclobenzaprine hydrochloride 10 mg oral tablet (20 sources) Muscle Relaxant Start: 01-25-2024 take 1 tablet by mouth three times daily as needed for muscle spasms Cyclobenzaprine 10 MG tablet Take 1 tablet by mouth 3 times daily as needed for Muscle spasms. 21 tablet 01/25/2024 Active Start: 01-15-2024 End: 10-31-2024 take 1 tablet by mouth every twelve hours as needed cyclobenzaprine (FLEXERIL) 5 mg tablet Take 1 tablet by mouth two times a day as needed for muscle spasm. 15 tablet 01/15/2024 10/31/2024 Discontinued Start: 01-11-2023 End: 02-10-2023 take 1 tablet by mouth twice daily as needed cyclobenzaprine (FLEXERIL) 10 mg tablet Indications: Strain of lumbar region, initial encounter Take 1 tablet by mouth twice daily as needed. 60 tablet 0 01/11/2023 02/10/2023 Active Start: 11-03-2022 End: 01-03-2023 take 1 tablet by mouth twice daily as needed cyclobenzaprine (FLEXERIL) 10 mg tablet Indications: Strain of lumbar region, initial encounter Take 1 tablet by mouth twice daily as needed. 60 tablet 0 12/04/2022 01/03/2023 Active Start: 09-28-2022 End: 10-05-2022 take 1 tablet by mouth twice daily as needed cyclobenzaprine (FLEXERIL) 10 mg tablet Indications: Strain of lumbar region, initial encounter Take 1 tablet by mouth twice daily as needed for up to 7 days. 14 tablet 0 09/28/2022 10/05/2022 Active Comment on above: Take 1 tablet by michele th twice daily as needed for up to 7 days. Take 1 tablet by michele th twice daily as needed. Take 1 tablet by michele th two times a day as needed for muscle spasm. diclofenac sodium 1 mg/ml ophthalmic solution (1 source) Nonsteroidal Anti-inflammatory Drug Start: 08-11-20 23 take 1 drop(s) into the eye(s) three times daily diclofenac 0.1% ophthalmic solution ; 1 drop(s) in each affected eye 3 times a day Quantity: 1 Refills: 0 Ordered: 11-Aug-2023 Inder Menard Start: 11-Aug-2023 Generic Substitution Allowed Comments: For the eye. Comment on above: For the eye. doxycycline monohydrate 100 mg oral capsule (3 sources) Tetracycline-class Drug Start: 04-05-20 25 End: 04-12-20 take 1 capsule by mouth twice daily doxycycline monohydrate (MONODOX) 100 mg capsule Take 1 capsule by mouth two times a day for 7 days. 14 capsule 04/05/2025 04/12/2025 Active ergocalciferol 1.25 mg oral capsule (20 sources) Provitamin D2 Compound Start: 11-24-20 End: 02-22-20 take 1 capsule by mouth every week ergocalciferol 50,000 unit capsule (VITAMIN D2, DRISDOL) Indications: Vitamin D deficiency Take 1 capsule by mouth one time a week. 12 capsule 11/24/2023 Active Start: 07-04-2022 End: 09-22-2023 Ergocalciferol (Vitamin D2) (Vitamin D2) 1,250 mcg (50,000 unit) Capsule Discontinued 1250 ug PO EVERY WEEK July 04, 2022 12:00am September 22, 2023 7:01am Comment on above: Take 1 capsule by mo [facility] one time a week. famotidine 20 mg oral tablet (3 sources) Histamine-2 Receptor Antagonist Start: End: take 1 tablet by mouth twice daily famotidine (PEPCID) 20 mg tablet Indications: Itching Take 1 tablet by mouth two times a day for 7 days. 14 tablet 08/23/2024 08/30/2024 Active 24 hr metFORMIN hydrochloride 500 mg extended release oral tablet (20 sources) Biguanide Start: 5 End: 5 take 2 tablets by mouth once daily at breakfast metFORMIN ER (GLUCOPHAGE XR) 500 mg 24 hr tablet Indications: Type 2 diabetes mellitus without complication, without long-term current use of insulin (HCC) Take 2 tablets by mouth daily with breakfast. 180 tablet 08/04/2025 11/02/2025 Active Start: 08-04-2025 End: 08-04-2025 take 1 tablet by mouth twice daily metFORMIN (GLUCOPHAGE) 500 mg tablet Indications: Type 2 diabetes mellitus without complication, without long-term current use of insulin (HCC) Take 1 tablet by mouth two times a day. 180 tablet 08/04/2025 08/04/2025 Discontinued Start: 12-10-2024 take 1 tablet by michele twice daily metFORMIN (GLUCOPHAGE) 500 mg tablet Indications: Type 2 diabetes mellitus without complication, without long-term current use of insulin (HCC) take 1 tablet by mouth twice a day 180 tablet 12/10/2024 Active Start: 10-13-2023 End: 10-13-2024 take 1 tablet by mouth twice daily metFORMIN (GLUCOPHAGE) 500 mg tablet Indications: Type 2 diabetes mellitus without complication, without long-term current use of insulin (HCC) Take 1 tablet by mouth two times a day. 180 tablet 07/15/2024 Active Start: 07-04-2022 End: 10-13-2023 take 1 tablet by mouth once daily Start: 05-03-2022 End: 08-07-2023 take 1 tablet by mouth twice daily metFORMIN (GLUCOPHAGE) 1,000 mg tablet Indications: Type 2 diabetes mellitus without complication, without long-term current use of insulin (HCC) Take 1 tablet by mouth twice daily. 60 tablet 1 05/29/2023 08/07/2023 Discontinued metFORMIN Quanti ty: 0 Refills: 0 Ordered: 15-Jun-2023 Daphney Bailey Generic Substitution Allowed Comment on above: Take 1 tablet by michele th twice daily. Take 1,000 mg by michele th twice daily. Take 1 tablet by michele th daily with breakfast. Take 1 tablet by michele th two times a day. methylPREDNISolone (7 sources) Corticosteroid Start: 04-10-2025 End: 04-16-2025 methylPREDNISolone (MEDROL, MADDI,) 4 mg Dose-Pack As instructed per package 21 tablet 04/10/2025 04/16/2025 Active Start: 04-05-2025 End: 04-10-2025 methylPREDNISolone (MEDROL, MADDI,) 4 mg Dose-Pack As instructed per package 21 tablet 04/05/2025 04/10/2025 Discontinued Start: 04-05-2025 End: 04-11-2025 methylPREDNISolone (MEDROL, MADDI,) 4 mg Dose-Pack As instructed per package 21 tablet 04/05/2025 04/11/2025 Active Start: 04-30-2024 End: 05-06-2024 methylPREDNISolone (MEDROL, MADDI,) 4 mg Dose-Pack Take as directed 21 tablet 0 04/30/2024 05/06/2024 Active 24 hr metoprolol succinate 100 mg extended release oral capsule (20 sources) beta-Adrenergic Khang Start: 07-04-2022 take 1 capsule b y mouth once daily Start: 05-03-2022 End: 08-04-2025 take 1 tablet by mouth once daily at bedtime metoprolol succinate ER (TOPROL XL) 100 mg Indications: Primary hypertension Take 1 tablet by mouth daily at bedtime. 30 tablet 1 06/05/2025 Active metoprolol Quant ity: 0 Refills: 0 Ordered: 15-Jun-2023 DeandraulisesDaphney trujillo Generic Substitution Allowed Comment on above: Take 1 tablet by michele th daily at bedtime. Take 100 mg by mouth daily at bedtime. Mounjaro 15 MG/0.5ML Solution Pen-injector (1 source) Start: 024 End: inject 15 mg by subcutaneous injection every week Mounjaro 15 MG/0.5ML Solution Pen-injector Inject 15 mg under the skin Once a week. 01/05/2024 04/04/2024 Active moxifloxacin 5 mg/ml ophthalmic solution (1 source) Quinolone Antimicrobial Start: End: take 1 drop(s) into the eye(s) twice daily moxifloxacin 0.5% ophthalmic solution ; 1 drop(s) in each affected eye 2 times a day Quantity: 1 Refills: 0 Ordered: 11-Aug-2023 Inder Menard Start: 11-Aug-2023 End: 17-Aug-2023 Generic Substitution Allowed Comments: For the eye. Comment on above: For the eye. oxyCODONE hydrochloride 10 mg oral tablet (6 sources) Opioid Agonist Start: End: take 1 tablet by mouth every six hours as needed oxyCODONE IR (ROXICODONE) 10 mg tab Indications: Macromastia Take 1 tablet by mouth every 6 hours as needed for up to 7 days. 28 tablet 03/27/2025 3:33 PM EDT 03/27/2025 04/03/2025 Active Start: 07-24-2024 End: 07-31-2024 take 1 tablet by mouth every six hours as needed oxyCODONE IR (ROXICODONE) 5 mg immediate release tablet Indications: Excess skin Take 1 tablet by mouth every 6 hours as needed for up to 7 days. 28 tablet 07/24/2024 07/31/2024 Active predniSONE 10 mg oral tablet (3 sources) Start: 08-23-2024 End: 08-31-2024 take 3 tablets by mouth once daily, then take 2 tablets by mouth once daily, then take 1 tablet by mouth once daily predniSONE (DELTASONE) 10 mg tablet Indications: Rash Take 3 tablets by mouth once daily for 3 days, THEN 2 tablets once daily for 3 days, THEN 1 tablet once daily for 3 days. 18 tablet 08/23/2024 08/31/2024 Active Tirzepatide (1 source) Start: 09-22-2023 tirzepatide (MOUNJARO) 12.5 mg/0.5 mL pen injector (18 sources) Start: 01-28-2025 End: 02-27-2025 inject 12.5 mg by subcutaneous injection every week tirzepatide (MOUNJARO) 12.5 mg/0.5 mL pen injector Indications: Type 2 diabetes mellitus with other specified complication, with long-term current use of insulin (HCC) Inject 12.5 mg subcutaneously one time a week. 2 mL 01/28/2025 02/27/2025 Active Start: 05-10-2024 End: 07-09-2024 inject 12.5 mg by subcutaneous injection every week tirzepatide (MOUNJARO) 12.5 mg/0.5 mL pen injector Inject 12.5 mg subcutaneously one time a week. 6 mL 05/10/2024 07/09/2024 Discontinued Start: 05-10-2024 End: 07-09-2024 inject 12.5 mg by subcutaneous injection every week tirzepatide (MOUNJARO) 12.5 mg/0.5 mL pen injector Inject 12.5 mg subcutaneously one time a week. 6 mL 0 05/10/2024 07/09/2024 Discontinued Start: 05-10-2024 End: 08-08-2024 inject 12.5 mg by subcutaneous injection every week tirzepatide (MOUNJARO) 12.5 mg/0.5 mL pen injector Inject 12.5 mg subcutaneously one time a week. 6 mL 0 05/10/2024 08/08/2024 Active Start: 06-26-2023 End: 07-24-2023 inject 12.5 mg by subcutaneous injection every week tirzepatide (MOUNJARO) 12.5 mg/0.5 mL pen injector Inject 12.5 mg subcutaneously one time a week for 28 days. 2 mL 0 06/26/2023 07/24/2023 Active Comment on above: Inject 12.5 mg subcu taneously one time a week for 28 days. tirzepatide (MOUNJARO) 2.5 mg/0.5 mL pen injector (14 sources) Start: End: inject 2.5 mg by subcutaneous injection every week tirzepatide (MOUNJARO) 2.5 mg/0.5 mL pen injector Indications: Type 2 diabetes mellitus without complication, without long-term current use of insulin (HCC) Inject 2.5 mg subcutaneously one time a week. 2 mL 08/08/2025 09/07/2025 Active Start: 07-17-2024 End: 07-26-2024 inject 2.5 mg by subcutaneous injection every week tirzepatide (MOUNJARO) 2.5 mg/0.5 mL pen injector Indications: Type 2 diabetes mellitus without complication, without long-term current use of insulin (HCC) Inject 2.5 mg subcutaneously one time a week. 2 mL 07/17/2024 07/26/2024 Discontinued Start: 07-17-2024 End: 08-16-2024 inject 2.5 mg by subcutaneous injection every week tirzepatide (MOUNJARO) 2.5 mg/0.5 mL pen injector Indications: Type 2 diabetes mellitus without complication, without long-term current use of insulin (HCC) Inject 2.5 mg subcutaneously one time a week. 2 mL 07/17/2024 08/16/2024 Active Start: 01-10-2023 End: 02-02-2023 tirzepatide (MOUNJARO) 2.5 m g/0.5 mL pen injector Indications: Class 3 severe obesity with serious comorbidity in adult, unspecified BMI, unspecified obesity type (HCC) , Body mass index 40.0-44.9, adult (HCC) , Uncontrolled type 2 diabetes mellitus with hyperglycemia (HCC) Inject 2.5 mg subcutaneously one time a week. 2 mL 0 01/10/2023 02/02/2023 Discontinued Start: 01-10-2023 End: 02-09-2023 tirzepatide (MOUNJARO) 2.5 m g/0.5 mL pen injector Indications: Class 3 severe obesity with serious comorbidity in adult, unspecified BMI, unspecified obesity type (HCC) , Body mass index 40.0-44.9, adult (HCC) , Uncontrolled type 2 diabetes mellitus with hyperglycemia (HCC) Inject 2.5 mg subcutaneously one time a week. 2 mL 0 01/10/2023 02/09/2023 Active Comment on above: Inject 2.5 mg subcut aneously one time a week. Tirzepatide (Tirzepatide 12.5 Mg/0.5 Ml Subcutaneous Pen Injector) 12.5 mg/0.5 mL pen injector (2 sources) Start: 09-22-2023 Tirzepatide (Tirzepatide 12.5 Mg/0.5 Ml Subcutaneous Pen Injector) 12.5 mg/0.5 mL pen injector Active 12.5 MG SC EVERY WEEK September 21, 2023 11:00pm Start: 09-22-2023 Tirzepatide (T irzepatide 12.5 Mg/0.5 Ml Subcutaneous Pen Injector) 12.5 mg/0.5 mL pen injector Active 12.5 MG SC EVERY WEEK September 22, 2023 12:00am triamcinolone acetonide 0.82103 mg/mg topical ointment (18 sources) Corticosteroid Start: 04-10-2025 triamcinolone (KENALOG) 0.025 % ointment Apply to affected areas two times a day as needed. 80 g 04/10/2025 Active Completed/Discontinued Medications Medication Drug Class(es) Dates Sig (Normalized) Sig (Original) albuterol 0.833 mg/ml / ipratropium bromide 0.167 mg/ml inhalation solution (1 source) Anticholinergic, beta2-Adrenergic Agonist Start: 11-08-2023 End: 11-08-2023 Ipratropium-albut femi (DUONEB) 0.5-2.5 (3) MG/3ML nebulizer solution 3 mL amitriptyline hydrochloride 25 mg oral tablet (20 sources) Tricyclic Antidepressant Start: 03-03-2025 End: 08-30-2025 take 1 tablet by mouth once daily at bedtime amoxicillin 875 mg / clavulanate 125 mg oral tablet (5 sources) Penicillin-class Antibacterial Start: 07-04-2022 End: 09-22-2023 Amoxicillin-Pot Clavulanate 875-125 mg tablet Discontinued 1 {tbl} PO TWICE A DAY 14 0 July 04, 2022 12:00am September 22, 2023 6:59am Start: 07-04-2022 End: 09-22-2023 take 1 tablet by mouth twice daily Amoxicillin-Pot Clavulanate Discontinued 1 TABLET PO TWICE A DAY 14 July 03, 2022 11:00pm September 22, 2023 5:59am 24 hr buPROPion hydrochloride 300 mg extended release oral tablet (20 sources) Aminoketone Start: 07-04-2022 End: 09-22-2023 take 1 tablet by mouth once daily Bupropion Hcl (Wellbutrin Xl) 300 mg Tablet Extended Release 24 Hr Discontinued 300 mg PO DAILY July 04, 2022 12:00am September 22, 2023 6:59am End: 07-18-2022 buPROPion XL (WELLBUTRIN XL) 300 mg 24 hr tablet Comment on above: Take 1 tablet by michele th once daily. canagliflozin 300 mg oral tablet (20 sources) Sodium-Glucose Cotransporter 2 Inhibitor Start: 04-29-20 End: 09-22-20 take 1 tablet by mouth once daily Canagliflozin (Invokana) 300 mg Tablet Discontinued 300 mg PO DAILY July 04, 2022 12:00am September 22, 2023 7:00am Comment on above: Take 1 tablet by michele th once daily. Take 300 mg by mouth once daily. TAKE 1 TABLET BY MICHELE TH EVERY DAY clindamycin 300 mg oral capsule (3 sources) Lincosamide Antibacterial Start: 05-04-20 End: 05-09-20 take 1 capsule by mouth three times daily clindamycin (CLEOCIN) 300 mg capsule Take 1 capsule by mouth three times a day for 5 days. 15 capsule 05/04/2025 05/09/2025 DULoxetine 60 mg delayed release oral capsule (20 sources) Serotonin and Norepinephrine Reuptake Inhibitor Start: 03-27-20 End: 12-25-19 take 1 capsule by mouth once daily DULoxetine (CYMBALTA) 60 mg capsule Indications: Anxiety Take 1 capsule by mouth once daily. 30 capsule 03/27/2024 12/25/2024 Discontinued (Course of therapy completed) Start: 07-04-2022 End: 08-03-2024 take 1 capsule by mouth once daily DULoxetine (CYMBALTA) 60 mg capsule Indications: Anxiety Take 1 capsule by mouth once daily. 30 capsule 0 11/24/2023 Active Cymbalta Quantit y: 0 Refills: 0 Ordered: 15-Jun-2023 Jersona, Daphney Generic Substitution Allowed Comment on above: Take [address] [facility] once daily. gabapentin 400 mg oral capsule (20 sources) Anti-epileptic Agent Start: 2 End: 3 take 1 capsule by mouth twice daily Gabapentin 400 mg Capsule Discontinued 400 mg PO TWICE A DAY July 04, 2022 12:00am September 22, 2023 7:01am Comment on above: Take [address] [facility] twice daily for 30 days. glipiZIDE 10 mg oral tablet (20 sources) Sulfonylurea Start: 3 End: 3 take 1 tablet by mouth twice daily before mealtime glipiZIDE (GLUCOTROL) 10 mg tablet Take 10 mg by mouth twice daily before meals. 0 01/15/2023 03/17/2023 Discontinued (Discontinued by Patient) Start: 07-18-2022 End: 01-12-2023 take 1 tablet by mouth twice daily before mealtime glipiZIDE (GLUCOTROL) 10 mg tablet Indications: Type 2 diabetes mellitus without complication, without long-term current use of insulin (HCC) Take 1 tablet by mouth twice daily before meals. 60 tablet 1 11/13/2022 01/10/2023 Discontinued Comment on above: Take 1 tablet by [facility] twice daily before meals. Take 10 mg by mouth twice daily before meals. 12 hr guaiFENesin 600 mg extended release oral tablet (5 sources) Start: 2021 End: 2022 take 1 tablet by mouth twice daily, then take 1 tablet by mouth every twelve hours Guaifenesin (Mucinex) 600 mg Tablet Extended Release 12hr Discontinued 600 mg PO TWICE A DAY July 04, 2022 12:00am September 22, 2023 7:01am hydrocortisone 10 mg/ml topical lotion (4 sources) Corticosteroid Start: 2024 End: 2024 hydrocortisone (CORTISONE, HYDROCORTISONE,) 1 % lotion Apply to affected area two times a day. 114 g 1 04/05/2025 04/10/2025 Discontinued hydrOXYzine hydrochloride 10 mg oral tablet (15 sources) Antihistamine Start: 2021 End: 2022 take 1 tablet by mouth three times daily as needed for anxiety Hydroxyzine Hcl 10 mg Tablet Discontinued 10 mg PO THREE TIMES A DAY as needed for Anxiety July 04, 2022 12:00am September 22, 2023 7:01am ibuprofen 600 mg oral tablet (20 sources) Nonsteroidal Anti-inflammatory Drug Start: 2021 End: 2023 take 1 tablet by mouth every six hours as needed for pain Ibuprofen 600 mg tablet Discontinued 600 mg PO EVERY 6 HOURS NEEDED as needed for fever or pain 20 0 July 04, 2022 12:00am September 22, 2023 7:01am Comment on above: TAKE 1 TAB BY MOUTH EVERY 6 HOURS NEEDED FOR FEVER OR PAIN lidocaine 0.05 mg/mg medicated patch (20 sources) Antiarrhythmic, Amide Local Anesthetic Start: 2023 End: 2024 apply 1 dose transdermal route once daily, then apply 1 dose transdermal route every twelve hours lidocaine (LIDODERM) 5 % Indications: Neck pain, acute Apply 1 Patch as directed once daily. to affected area. Remove patch after 12 hours. 15 Patch 01/15/2024 12/25/2024 Discontinued (Course of therapy completed) Comment on above: Apply 1 Patch as dir ected once daily. to affected area. Remove patch after 12 hours. lisinopril 40 mg oral tablet (20 sources) Angiotensin Converting Enzyme Inhibitor Start: 2021 End: 2022 take 1 tablet by mouth once daily Lisinopril 40 mg Tablet Discontinued 40 mg PO DAILY July 04, 2022 12:00am September 22, 2023 7:01am Comment on above: Take 1 tablet by michele th once daily. MOUNJARO 10 mg/0.5 mL pen injector (2 sources) Start: 2024 End: 2024 MOUNJARO 10 mg/0.5 mL pen injector Indications: Type 2 diabetes mellitus with other specified complication, with long-term current use of insulin (HCC) INJECT THE CONTENTS OF ONE PEN SUBCUTANEOUSLY ONCE A WEEK 4 mL 01/02/2025 01/27/2025 Discontinued Start: 01-02-2025 MOUNJARO 10 mg /0.5 mL pen injector Indications: Type 2 diabetes mellitus with other specified complication, with long-term current use of insulin (HCC) INJECT THE CONTENTS OF ONE PEN SUBCUTANEOUSLY ONCE A WEEK 4 mL 01/02/2025 Active MOUNJARO 12.5 mg/0.5 mL pen injector (4 sources) Start: 07-09-2024 End: 07-15-2024 inject 12.5 mg by subcutaneous injection every week MOUNJARO 12.5 mg/0.5 mL pen injector INJECT 12.5 MG SUBCUTANEOUSLY ONCE A WEEK 12 mL 07/09/2024 07/15/2024 Discontinued Start: 07-09-2024 inject 12.5 mg by smalls bcutaneous injection every week MOUNJARO 12.5 mg/0.5 mL pen injector INJECT 12.5 MG SUBCUTANEOUSLY ONCE A WEEK 12 mL 0 07/09/2024 Active naproxen 500 mg oral tablet (20 sources) Nonsteroidal Anti-inflammatory Drug Start: 01-10-2023 End: 01-13-2023 naproxen (NAPROSYN) 500 mg tablet Start: 11-11-2022 End: 01-03-2023 take 1 tablet by mouth twice daily as needed for pain naproxen (NAPROSYN) 500 mg tablet Indications: Strain of lumbar region, initial encounter Take 1 tablet by mouth twice daily as needed for pain (for pain). Take with food 60 tablet 0 12/04/2022 01/03/2023 Active Start: 10-08-2022 End: 11-07-2022 take 1 tablet by mouth twice daily as needed for pain naproxen (NAPROSYN) 500 mg tablet Indications: Strain of lumbar region, initial encounter Take 1 tablet by mouth twice daily as needed for pain (for pain). Take with food 60 tablet 0 10/08/2022 11/07/2022 Active Start: 09-28-2022 End: 10-05-2022 take 1 tablet by mouth twice daily at mealtime as needed for pain naproxen (NAPROSYN) 500 mg tablet Indications: Strain of lumbar region, initial encounter Take 1 tablet by mouth twice daily as needed (for pain) for up to 7 days. Take with food 14 tablet 0 09/28/2022 10/05/2022 Active Comment on above: Take 1 tablet by michele th twice daily as needed (for pain) for up to 7 days. Take with food Take 1 tablet by michele th twice daily as needed for pain (for pain). Take with food nitrofurantoin, macrocrystals 25 mg / nitrofurantoin, monohydrate 75 mg oral capsule (4 sources) Nitrofuran Antibacterial Start: 01-15-20 End: 01-20-20 take 1 capsule by mouth twice daily nitrofurantoin monohydrate and macrocrystal (MACROBID) 100 mg capsule Take 1 capsule by mouth two times a day for 5 days. 10 capsule 0 01/15/2024 01/20/2024 Comment on above: Take 1 capsule by mo [facility] two times a day for 5 days. nystatin 100 unt/mg topical powder (10 sources) Polyene Antifungal Start: 04-23-20 End: 05-23-20 nystatin (MYCOSTATIN) powder Indications: Class 3 severe obesity with serious comorbidity in adult, unspecified BMI, unspecified obesity type (HCC) , Excess skin of abdomen , Recurrent infection of skin Apply 1 application to affected area four times daily. 60 g 2 04/23/2024 05/23/2024 ondansetron 4 mg oral tablet (20 sources) Serotonin-3 Receptor Antagonist Start: 07-24-20 End: 12-25-19 take 1 tablet by mouth every eight hours as needed ondansetron (ZOFRAN) 4 mg tablet Take 1 tablet by mouth every 8 hours as needed for nausea/vomiting. 15 tablet 07/24/2024 12/25/2024 Discontinued (Course of therapy completed) Start: 11-08-2023 End: 11-08-2023 Ondansetron 4mg/2ml (ZOFRAN) injection 4 mg rizatriptan 5 mg oral tablet (9 sources) Serotonin-1b and Serotonin-1d Receptor Agonist Start: 08-30-2022 End: 09-29-2022 rizatriptan (MAXALT) 5 mg tablet Indications: Chronic migraine without aura without status migrainosus, not intractable Take 1 tablet by mouth as needed for migraine headache (see administration instructions). 30 tablet 0 08/30/2022 09/28/2022 Discontinued (Discontinued by Patient) Start: 07-18-2022 End: 08-17-2022 rizatriptan (MAXALT) 5 mg ta blet Indications: Chronic migraine without aura without status migrainosus, not intractable Take 1 tablet by mouth as needed for migraine headache (see administration instructions). 30 tablet 0 07/18/2022 08/17/2022 Active Comment on above: Take 1 tablet by michele th as needed for migraine headache (see administration instructions). 250 ml sodium chloride 9 mg/ml injection (1 source) Start: End: Sodium chloride 0.9% IV solution 1,000 mL tirzepatide (MOUNJARO) 10 mg/0.5 mL pen injector (15 sources) Start: End: inject 10 mg by subcutaneous injection every week tirzepatide (MOUNJARO) 10 mg/0.5 mL pen injector Indications: Type 2 diabetes mellitus with other specified complication, with long-term current use of insulin (HCC) Inject 10 mg subcutaneously one time a week for 28 days. 2 mL 12/03/2024 01/02/2025 Discontinued Start: 12-03-2024 inject 10 mg by subc utaneous injection every week tirzepatide (MOUNJARO) 10 mg/0.5 mL pen injector Indications: Type 2 diabetes mellitus with other specified complication, with long-term current use of insulin (HCC) Inject 10 mg subcutaneously one time a week for 28 days. 2 mL 12/03/2024 Active Start: 12-03-2024 End: 12-31-2024 inject 10 mg by subcutaneous injection every week tirzepatide (MOUNJARO) 10 mg/0.5 mL pen injector Indications: Type 2 diabetes mellitus with other specified complication, with long-term current use of insulin (HCC) Inject 10 mg subcutaneously one time a week for 28 days. 2 mL 12/03/2024 12/31/2024 Active Start: 05-10-2023 End: 05-24-2023 inject 10 mg by subcutaneous injection every week tirzepatide (MOUNJARO) 10 mg/0.5 mL pen injector Indications: Uncontrolled type 2 diabetes mellitus with hyperglycemia (HCC) Inject 10 mg subcutaneously one time a week. 6 mL 0 05/10/2023 05/24/2023 Discontinued Start: 03-17-2023 End: 06-15-2023 tirzepatide (MOUNJARO) 10 mg /0.5 mL pen injector Indications: Class 3 severe obesity with serious comorbidity in adult, unspecified BMI, unspecified obesity type (HCC) , Uncontrolled type 2 diabetes mellitus with hyperglycemia (HCC) , Body mass index 40.0-44.9, adult (HCC) Inject 10 mg subcutaneously one time a week. 6 mL 0 03/17/2023 06/15/2023 Active Start: 03-01-2023 End: 03-17-2023 inject 10 mg by subcutaneous injection every week tirzepatide (MOUNJARO) 10 mg/0.5 mL pen injector Inject 10 mg subcutaneously one time a week. 2 mL 1 03/01/2023 03/17/2023 Discontinued Start: 03-01-2023 End: 04-26-2023 inject 10 mg by subcutaneous injection every week tirzepatide (MOUNJARO) 10 mg/0.5 mL pen injector Inject 10 mg subcutaneously one time a week. 2 mL 1 03/01/2023 04/26/2023 Active Comment on above: Inject 10 mg subcuta neously one time a week. tirzepatide (MOUNJARO) 15 mg/0.5 mL pen injector (20 sources) Start: End: inject 15 mg by subcutaneous injection every week tirzepatide (MOUNJARO) 15 mg/0.5 mL pen injector Indications: Type 2 diabetes mellitus without complication, without long-term current use of insulin (HCC) Inject 15 mg subcutaneously one time a week. 6 mL 02/12/2025 03/31/2025 Discontinued Start: 02-12-2025 End: 05-13-2025 inject 15 mg by subcutaneous injection every week tirzepatide (MOUNJARO) 15 mg/0.5 mL pen injector Indications: Type 2 diabetes mellitus without complication, without long-term current use of insulin (HCC) Inject 15 mg subcutaneously one time a week. 6 mL 02/12/2025 05/13/2025 Active Start: 07-15-2024 End: 07-17-2024 inject 15 mg by subcutaneous injection every week tirzepatide (MOUNJARO) 15 mg/0.5 mL pen injector Inject 15 mg subcutaneously one time a week. 6 mL 07/15/2024 07/17/2024 Discontinued Start: 07-15-2024 End: 10-13-2024 inject 15 mg by subcutaneous injection every week tirzepatide (MOUNJARO) 15 mg/0.5 mL pen injector Inject 15 mg subcutaneously one time a week. 6 mL 07/15/2024 10/13/2024 Active Start: 07-12-2024 End: 10-10-2024 inject 15 mg by subcutaneous injection every week tirzepatide (MOUNJARO) 15 mg/0.5 mL pen injector Inject 15 mg subcutaneously one time a week. 6 mL 0 07/12/2024 10/10/2024 Active Start: 04-23-2024 End: 05-10-2024 tirzepatide (MOUNJARO) 15 mg /0.5 mL pen injector Indications: Class 3 severe obesity with serious comorbidity in adult, unspecified BMI, unspecified obesity type (HCC) , Type 2 diabetes mellitus without complication, without long-term current use of insulin (HCC) Inject 15 mg subcutaneously one time a week. 6 mL 0 04/23/2024 05/10/2024 Discontinued Start: 04-23-2024 End: 07-22-2024 tirzepatide (MOUNJARO) 15 mg /0.5 mL pen injector Indications: Class 3 severe obesity with serious comorbidity in adult, unspecified BMI, unspecified obesity type (HCC) , Type 2 diabetes mellitus without complication, without long-term current use of insulin (HCC) Inject 15 mg subcutaneously one time a week. 6 mL 0 04/23/2024 07/22/2024 Active Start: 04-23-2024 End: 04-23-2024 tirzepatide (MOUNJARO) 15 mg /0.5 mL pen injector Indications: Class 3 severe obesity with serious comorbidity in adult, unspecified BMI, unspecified obesity type (HCC) , Type 2 diabetes mellitus without complication, without long-term current use of insulin (HCC) Inject 15 mg subcutaneously one time a week. 6 mL 0 04/23/2024 04/23/2024 Discontinued Start: 04-09-2024 End: 04-23-2024 inject 15 mg by subcutaneous injection every week tirzepatide (MOUNJARO) 15 mg/0.5 mL pen injector Indications: Type 2 diabetes mellitus without complication, without long-term current use of insulin (HCC) Inject 15 mg subcutaneously one time a week. 6 mL 0 04/09/2024 04/23/2024 Discontinued Start: 04-09-2024 End: 07-08-2024 inject 15 mg by subcutaneous injection every week tirzepatide (MOUNJARO) 15 mg/0.5 mL pen injector Indications: Type 2 diabetes mellitus without complication, without long-term current use of insulin (HCC) Inject 15 mg subcutaneously one time a week. 6 mL 0 04/09/2024 07/08/2024 Active Start: 02-13-2024 End: 04-09-2024 inject 15 mg by subcutaneous injection every week tirzepatide (MOUNJARO) 15 mg/0.5 mL pen injector Indications: Type 2 diabetes mellitus without complication, without long-term current use of insulin (HCC) Inject 15 mg subcutaneously one time a week. 6 mL 0 02/13/2024 04/09/2024 Discontinued Start: 02-13-2024 End: 05-13-2024 inject 15 mg by subcutaneous injection every week tirzepatide (MOUNJARO) 15 mg/0.5 mL pen injector Indications: Type 2 diabetes mellitus without complication, without long-term current use of insulin (HCC) Inject 15 mg subcutaneously one time a week. 6 mL 0 02/13/2024 05/13/2024 Active Start: 01-05-2024 End: 04-04-2024 inject 15 mg by subcutaneous injection every week tirzepatide (MOUNJARO) 15 mg/0.5 mL pen injector Indications: Type 2 diabetes mellitus without complication, without long-term current use of insulin (HCC) Inject 15 mg subcutaneously one time a week. 6 mL 0 01/05/2024 04/04/2024 Active Start: 10-13-2023 End: 01-05-2024 inject 15 mg by subcutaneous injection every week tirzepatide (MOUNJARO) 15 mg/0.5 mL pen injector Inject 15 mg subcutaneously one time a week. 6 mL 0 10/13/2023 01/05/2024 Discontinued Start: 10-13-2023 End: 01-11-2024 inject 15 mg by subcutaneous injection every week tirzepatide (MOUNJARO) 15 mg/0.5 mL pen injector Inject 15 mg subcutaneously one time a week. 6 mL 0 10/13/2023 01/11/2024 Active Start: 08-21-2023 End: 01-05-2024 inject 15 mg by subcutaneous injection every week tirzepatide (MOUNJARO) 15 mg/0.5 mL pen injector Inject 15 mg subcutaneously one time a week. 6 mL 0 08/21/2023 01/05/2024 Discontinued Start: 08-21-2023 End: 11-19-2023 inject 15 mg by subcutaneous injection every week tirzepatide (MOUNJARO) 15 mg/0.5 mL pen injector Inject 15 mg subcutaneously one time a week. 6 mL 0 08/21/2023 11/19/2023 Active Start: 07-24-2023 End: 08-21-2023 inject 15 mg by subcutaneous injection every week tirzepatide (MOUNJARO) 15 mg/0.5 mL pen injector Inject 15 mg subcutaneously one time a week. 6 mL 0 07/24/2023 08/21/2023 Discontinued Start: 07-24-2023 End: 10-22-2023 inject 15 mg by subcutaneous injection every week tirzepatide (MOUNJARO) 15 mg/0.5 mL pen injector Inject 15 mg subcutaneously one time a week. 6 mL 0 07/24/2023 10/22/2023 Active Comment on above: Inject 15 mg subcuta neously one time a week. tirzepatide (MOUNJARO) 5 mg/0.5 mL pen injector (20 sources) Start: End: inject 5 mg by subcutaneous injection every week tirzepatide (MOUNJARO) 5 mg/0.5 mL pen injector Indications: Type 2 diabetes mellitus without complication, without long-term current use of insulin (HCC) Inject 5 mg subcutaneously one time a week. 2 mL 03/31/2025 08/08/2025 Discontinued Start: 03-31-2025 inject 5 mg by subcu taneous injection every week tirzepatide (MOUNJARO) 5 mg/0.5 mL pen injector Indications: Type 2 diabetes mellitus without complication, without long-term current use of insulin (HCC) Inject 5 mg subcutaneously one time a week. 2 mL 03/31/2025 Active Start: 03-31-2025 End: 04-30-2025 inject 5 mg by subcutaneous injection every week tirzepatide (MOUNJARO) 5 mg/0.5 mL pen injector Indications: Type 2 diabetes mellitus without complication, without long-term current use of insulin (HCC) Inject 5 mg subcutaneously one time a week. 2 mL 03/31/2025 04/30/2025 Active Start: 09-13-2024 End: 10-31-2024 tirzepatide (MOUNJARO) 5 mg/ 0.5 mL pen injector Indications: Type 2 diabetes mellitus with other specified complication, with long-term current use of insulin (HCC) , Dietary counseling and surveillance , BMI 34.0-34.9,adult Inject 5 mg subcutaneously one time a week. 2 mL 09/13/2024 10/31/2024 Discontinued Start: 09-13-2024 tirzepatide (M OUNJARO) 5 mg/0.5 mL pen injector Indications: Type 2 diabetes mellitus with other specified complication, with long-term current use of insulin (HCC) , Dietary counseling and surveillance , BMI 34.0-34.9,adult Inject 5 mg subcutaneously one time a week. 2 mL 09/13/2024 Active Start: 09-13-2024 End: 10-13-2024 tirzepatide (MOUNJARO) 5 mg/ 0.5 mL pen injector Indications: Type 2 diabetes mellitus with other specified complication, with long-term current use of insulin (HCC) , Dietary counseling and surveillance , BMI 34.0-34.9,adult Inject 5 mg subcutaneously one time a week. 2 mL 09/13/2024 10/13/2024 Active Start: 09-12-2024 End: 10-31-2024 inject 5 mg by subcutaneous injection every week tirzepatide (MOUNJARO) 5 mg/0.5 mL pen injector Indications: Type 2 diabetes mellitus with other specified complication, with long-term current use of insulin (HCC) Inject 5 mg subcutaneously one time a week. 2 mL 09/12/2024 10/31/2024 Discontinued Start: 09-12-2024 inject 5 mg by subcu taneous injection every week tirzepatide (MOUNJARO) 5 mg/0.5 mL pen injector Indications: Type 2 diabetes mellitus with other specified complication, with long-term current use of insulin (HCC) Inject 5 mg subcutaneously one time a week. 2 mL 09/12/2024 Active Start: 09-12-2024 End: 10-12-2024 inject 5 mg by subcutaneous injection every week tirzepatide (MOUNJARO) 5 mg/0.5 mL pen injector Indications: Type 2 diabetes mellitus with other specified complication, with long-term current use of insulin (HCC) Inject 5 mg subcutaneously one time a week. 2 mL 09/12/2024 10/12/2024 Active Start: 07-26-2024 inject 5 mg by subcu taneous injection every week tirzepatide (MOUNJARO) 5 mg/0.5 mL pen injector Indications: Type 2 diabetes mellitus without complication, without long-term current use of insulin (HCC) Inject 5 mg subcutaneously one time a week. 2 mL 07/26/2024 Active Start: 07-26-2024 End: 08-25-2024 inject 5 mg by subcutaneous injection every week tirzepatide (MOUNJARO) 5 mg/0.5 mL pen injector Indications: Type 2 diabetes mellitus without complication, without long-term current use of insulin (HCC) Inject 5 mg subcutaneously one time a week. 2 mL 07/26/2024 08/25/2024 Active Start: 02-02-2023 End: 02-20-2023 tirzepatide (MOUNJARO) 5 mg/ 0.5 mL pen injector Indications: Class 3 severe obesity with serious comorbidity in adult, unspecified BMI, unspecified obesity type (HCC) , Body mass index 40.0-44.9, adult (HCC) , Uncontrolled type 2 diabetes mellitus with hyperglycemia (HCC) Inject 5 mg subcutaneously one time a week. 2 mL 1 02/02/2023 02/20/2023 Discontinued (Course of therapy completed) Start: 02-02-2023 End: 03-30-2023 tirzepatide (MOUNJARO) 5 mg/ 0.5 mL pen injector Indications: Class 3 severe obesity with serious comorbidity in adult, unspecified BMI, unspecified obesity type (HCC) , Body mass index 40.0-44.9, adult (HCC) , Uncontrolled type 2 diabetes mellitus with hyperglycemia (HCC) Inject 5 mg subcutaneously one time a week. 2 mL 1 02/02/2023 03/30/2023 Active Comment on above: Inject 5 mg subcutan eously one time a week. tirzepatide (MOUNJARO) 7.5 mg/0.5 mL pen injector (20 sources) Start: End: inject 7.5 mg by subcutaneous injection every week tirzepatide (MOUNJARO) 7.5 mg/0.5 mL pen injector Indications: Type 2 diabetes mellitus with other specified complication, with long-term current use of insulin (HCC) Inject 7.5 mg subcutaneously one time a week. 2 mL 10/31/2024 12/25/2024 Discontinued (Course of therapy completed) Start: 10-31-2024 inject 7.5 mg by sub cutaneous injection every week tirzepatide (MOUNJARO) 7.5 mg/0.5 mL pen injector Indications: Type 2 diabetes mellitus with other specified complication, with long-term current use of insulin (HCC) Inject 7.5 mg subcutaneously one time a week. 2 mL 10/31/2024 Active Start: 10-31-2024 End: 11-30-2024 inject 7.5 mg by subcutaneous injection every week tirzepatide (MOUNJARO) 7.5 mg/0.5 mL pen injector Indications: Type 2 diabetes mellitus with other specified complication, with long-term current use of insulin (HCC) Inject 7.5 mg subcutaneously one time a week. 2 mL 10/31/2024 11/30/2024 Active Start: 09-05-2024 End: 10-31-2024 tirzepatide (MOUNJARO) 7.5 m g/0.5 mL pen injector Indications: Type 2 diabetes mellitus with other specified complication, with long-term current use of insulin (HCC) , Dietary counseling and surveillance , BMI 34.0-34.9,adult Inject 7.5 mg subcutaneously one time a week. 2 mL 09/05/2024 10/31/2024 Discontinued Start: 09-05-2024 tirzepatide (M OUNJARO) 7.5 mg/0.5 mL pen injector Indications: Type 2 diabetes mellitus with other specified complication, with long-term current use of insulin ([facility]) , Dietary counseling and surveillance , BMI 34.0-34.9,adult Inject 7.5 mg subcutaneously one time a week. 2 mL 09/05/2024 Active Start: 09-05-2024 End: 10-05-2024 tirzepatide (MOUNJARO) 7.5 m g/0.5 mL pen injector Indications: Type 2 diabetes mellitus with other specified complication, with long-term current use of insulin ([facility]) , Dietary counseling and surveillance , BMI 34.0-34.9,adult Inject 7.5 mg subcutaneously one time a week. 2 mL 09/05/2024 10/05/2024 Active Start: 05-24-2023 End: 06-26-2023 inject 7.5 mg by subcutaneous injection every week tirzepatide (MOUNJARO) 7.5 mg/0.5 mL pen injector Inject 7.5 mg subcutaneously one time a week. 2 mL 0 05/24/2023 06/26/2023 Discontinued (Course of therapy completed) Start: 05-24-2023 End: 06-23-2023 inject 7.5 mg by subcutaneous injection every week tirzepatide (MOUNJARO) 7.5 mg/0.5 mL pen injector Inject 7.5 mg subcutaneously one time a week. 2 mL 0 05/24/2023 06/23/2023 Active Start: 02-20-2023 End: 03-01-2023 inject 7.5 mg by subcutaneous injection every week tirzepatide (MOUNJARO) 7.5 mg/0.5 mL pen injector Inject 7.5 mg subcutaneously one time a week. 2 mL 1 02/20/2023 03/01/2023 Discontinued Start: 02-20-2023 End: 04-17-2023 inject 7.5 mg by subcutaneous injection every week tirzepatide (MOUNJARO) 7.5 mg/0.5 mL pen injector Inject 7.5 mg subcutaneously one time a week. 2 mL 1 02/20/2023 04/17/2023 Active Comment on above: Inject 7.5 mg subcut aneously one time a week. topiramate 100 mg oral tablet (20 sources) Start: 04-03-20 End: 12-25-19 25 take 1 tablet by mouth once daily at bedtime topiramate (TOPAMAX) 100 mg tablet Take 1 tablet by mouth daily at bedtime. 30 tablet 3 04/03/2024 12/25/2024 Discontinued (Course of therapy completed) Start: 10-13-2023 End: 06-23-2024 topiramate (TOPAMAX) 25 mg t ablet Indications: Body mass index 40.0-44.9, adult (HCC) , Type 2 diabetes mellitus without complication, without long-term current use of insulin (HCC) , Class 3 severe obesity with serious comorbidity in adult, unspecified BMI, unspecified obesity type (HCC) Take 3 tablets by mouth once daily. 270 tablet 0 03/25/2024 04/03/2024 Discontinued Start: 09-22-2023 End: 08-03-2024 take 2 tablets by mouth once daily Topiramate 25 mg tablet Discontinued 50 mg PO DAILY September 22, 2023 12:00am August 03, 2024 6:33pm Start: 09-22-2023 take 50 mg by mouth once daily Topiramate Active 50 MG PO DAILY September 21, 2023 11:00pm Start: 08-07-2023 End: 11-05-2023 take 40-44.9 tablets by mouth once daily topiramate (TOPAMAX) 25 mg tablet Indications: Class 3 severe obesity with serious comorbidity in adult, unspecified BMI, unspecified obesity type (HCC) , Uncontrolled type 2 diabetes mellitus with hyperglycemia (HCC) , Body mass index 40.0-44.9, adult (HCC) Take 3 tablets by mouth once daily. 270 tablet 0 08/07/2023 10/13/2023 Discontinued Start: 01-10-2023 End: 06-15-2023 take 40-44.9 tablets by mouth once daily topiramate (TOPAMAX) 25 mg tablet Indications: Class 3 severe obesity with serious comorbidity in adult, unspecified BMI, unspecified obesity type (HCC) , Uncontrolled type 2 diabetes mellitus with hyperglycemia (HCC) , Body mass index 40.0-44.9, adult (HCC) Take 3 tablets by mouth once daily. 270 tablet 0 03/17/2023 Active Topamax Quantity : 0 Refills: 0 Ordered: 11-Aug-2023 Daphney Bailey Generic Substitution Allowed Comment on above: Take 1 tablet by michele th once daily. Take 3 tablets by mo uth once daily. traMADol hydrochloride 50 mg oral tablet (20 sources) Opioid Agonist Start: End: take 1 tablet by mouth every four hours as needed for pain Tramadol 50 mg tablet Discontinued 50 mg PO EVERY 4 HOURS NEEDED as needed for Pain January 07, 2024 1:00am August 03, 2024 6:33pm Start: 12-07-2018 End: 07-20-2023 traMADol 100 mg MP25 Comment on above: Take 50 mg by mouth. zolpidem tartrate 10 mg oral tablet (20 sources) gamma-Aminobutyri c Acid-ergic Agonist Start: 05-13-2022 End: 01-10-2023 take 10 mg by mouth once daily at bedtime zolpidem (AMBIEN) 10 mg Take 10 mg by mouth daily at bedtime. 0 05/13/2022 01/10/2023 Discontinued Comment on above: Take 10 mg by mouth daily at bedtime. Problems Active Problems Problem Classification Problem Date Documented Date Episodic/Chronic Abdominal pain (1 source) Abdominal pain; Translations: [Unspecified abdominal pain] 08-27-2025 Episodic Anxiety disorders (20 sources) Anxiety; Translations: [Anxiety disorder, unspecified] Chronic Blindness and vision defects (1 source) Blurring of visual image; Translations: [Other visual disturbances] 04-30-2024 Episodic Diabetes mellitus with complications (20 sources) Type II diabetes mellitus uncontrolled; Translations: [Type 2 diabetes mellitus with hyperglycemia] Onset: 01-10-2023 Resolved: 10-13-2023 Chronic Diabetes mellitus without complication (20 sources) Type 2 diabetes mellitus without complication; Translations: [Type 2 diabetes mellitus without complications] Onset: 10-13-2023 Chronic Disorders of lipid metabolism (1 source) Hyperlipidemia; Translations: [Hyperlipidemia, unspecified] Chronic E Codes: Fall (2 sources) Fall; Translations: [Unspecified fall, initial encounter] 01-07-2024 Episodic Essential hypertension (20 sources) Essential hypertension; Translations: [Essential (primary) hypertension] Onset: 01-10-2023 Chronic Genitourinary symptoms and ill-defined conditions (1 source) Dysuria; Translations: [Dysuria] 01-15-2024 Episodic Headache; including migraine (1 source) Migraine without aura, not refractory ; Translations: [Chronic migraine without aura, not intractable, without status migrainosus] Chronic Headache; including migraine (4 sources) Acute posttraumatic headache; Translations: [Acute post-traumatic headache, intractable] 04-03-2024 Episodic Intracranial injury (8 sources) Concussion with loss of consciousness; Translations: [Concussion with loss of consciousness of unspecified duration, subsequent encounter] Onset: 01-25-2024 01-25-2024 Episodic Malaise and fatigue (1 source) Fatigue; Translations: [Chronic fatigue, unspecified] Chronic Mood disorders (3 sources) Recurrent major depression; Translations: [Major depressive disorder, recurrent, unspecified] Chronic Nonmalignant breast conditions (20 sources) Large breast; Translations: [Hypertrophy of breast] Onset: 03-20-2025 03-20-2025 Episodic Nutritional deficiencies (20 sources) Vitamin D deficiency; Translations: [Vitamin D deficiency, unspecified] Onset: 01-10-2023 Chronic Other aftercare (6 sources) Traumatic brain injury; Translations: [Traumatic brain injury, with unknown loss of consciousness status, subsequent encounter] 01-25-2024 Episodic Other aftercare (1 source) Wound ; Translations: [Encounter for other specified surgical aftercare] 08-11-2024 Episodic Other connective tissue disease (10 sources) Fibromyalgia; Translations: [Fibromyalgia] Episodic Other connective tissue disease (1 source) Swelling of lower limb; Translations: [Other specified soft tissue disorders] 02-18-2025 Episodic Other inflammatory condition of skin (1 source) Intertrigo; Translations: [Erythema intertrigo] 05-10-2024 Episodic Other inflammatory condition of skin (1 source) Erythema intertrigo; Translations: [Intertrigo] Onset: 05-10-2024 Episodic Other inflammatory condition of skin (1 source) Itching ; Translations: [Pruritus, unspecified] 08-23-2024 Episodic Other injuries and conditions due to external causes (2 sources) Closed injury of head; Translations: [Unspecified injury of head, initial encounter] 01-07-2024 Episodic Other injuries and conditions due to external causes (4 sources) Memory impairment; Translations: [Unspecified injury of head, initial encounter] 03-03-2025 Episodic Other injuries and conditions due to external causes (1 source) Swallowed foreign body; Translations: [Foreign body of alimentary tract, part unspecified, initial encounter] 08-27-2025 Episodic Other injuries and conditions due to external causes (1 source) Foreign body of alimentary tract, part unspecified, initial encounter; Translations: [Foreign body of alimentary tract, part unspecified, initial encounter] Onset: 09-08-2025 Episodic Other non-traumatic joint disorders (1 source) Pain in right hip joint; Translations: [Pain in right hip] 01-15-2024 Episodic Other nutritional; endocrine; and metabolic disorders (20 sources) Obese class II; Translations: [Obesity, unspecified] Onset: 07-20-2023 07-20-2023 Chronic Other nutritional; endocrine; and metabolic disorders (20 sources) Obese class I; Translations: [Obesity, unspecified] Onset: 12-25-2024 07-26-2024 Chronic Other nutritional; endocrine; and metabolic disorders (3 sources) Body mass index 30+ - obesity; Translations: [Body mass index (BMI) 30.0-30.9, adult] 07-26-2024 Chronic Other nutritional; endocrine; and metabolic disorders (1 source) Obesity; Translations: [Class 1 obesity without serious comorbidity with body mass index (BMI) of 31.0 to 31.9 in adult, unspecified obesity type] 12-25-2024 Chronic Other nutritional; endocrine; and metabolic disorders (1 source) Fat hypertrophy; Translations: [Localized adiposity] 12-25-2024 Chronic Other nutritional; endocrine; and metabolic disorders (1 source) Obesity, unspecified; Translations: [Class 1 obesity] Onset: 08-23-2024 Chronic Other nutritional; endocrine; and metabolic disorders (2 sources) Body mass index (BMI) 31.0-31.9, adult; Translations: [Body mass index 31.0-31.9, adult] Onset: 12-25-2024 Chronic Other nutritional; endocrine; and metabolic disorders (1 source) H/O: diabetes mellitus; Translations: [Personal history of other endocrine, nutritional and metabolic disease] 08-11-2024 Episodic Other skin disorders (5 sources) Excess skin of abdominal wall; Translations: [Excessive and redundant skin and subcutaneous tissue] 04-23-2024 Episodic Other skin disorders (2 sources) Eruption; Translations: [Rash and other nonspecific skin eruption] 05-10-2024 Episodic Other skin disorders (3 sources) Skin finding; Translations: [Excessive and redundant skin and subcutaneous tissue] 05-10-2024 Episodic Other skin disorders (2 sources) Excessive and redundant skin and subcutaneous tissue; Translations: [Loose skin] Onset: 05-10-2024 Episodic Other skin disorders (1 source) Hirsutism; Translations: [Hirsutism] 12-25-2024 Episodic Other upper respiratory infections (18 sources) Laryngitis; Translations: [Acute laryngitis] Onset: 10-06-2023 03-11-2023 Episodic Residual codes; unclassified (1 source) Obstructive sleep apnea syndrome; Translations: [Obstructive sleep apnea (adult) (pediatric)] Chronic Residual codes; unclassified (2 sources) Other specified postprocedural states; Translations: [History of bilateral breast reduction surgery] Onset: 03-27-2025 Episodic Residual codes; unclassified (1 source) Family history of malignant neoplasm of breast; Translations: [Family history of breast cancer] Onset: 09-30-2025 Episodic Skin and subcutaneous tissue infections (1 source) Recurrent skin infection; Translations: [Local infection of the skin and subcutaneous tissue, unspecified] 04-23-2024 Episodic Spondylosis; intervertebral disc disorders; other back problems (3 sources) Neck pain; Translations: [Cervicalgia] 01-15-2024 Episodic Sprains and strains (11 sources) Low back strain; Translations: [Strain of muscle, fascia and tendon of lower back, initial encounter] Episodic Unclassified (2 sources) EYE INJURY 08-11-2023 Comment on above: EYE INJURY Unclassified (1 source) NO SHOW 09-27-2023 Unclassified (1 source) Patient encounter status 02-18-2025 Unclassified (2 sources) Traumatic brain injury, with unknown loss of consciousness status, subsequent encounter; Translations: [Traumatic brain injury, with unknown loss of consciousness status, subsequent encounter] Onset: 02-18-2025 Unclassified (1 source) Post Op Onset: 04-07-2025 Unclassified (1 source) Class 1 obesity; Translations: [Class 1 obesity] Onset: 02-12-2025 Unclassified (1 source) Class 1 obesity without serious comorbidity with body mass index (BMI) of 31.0 to 31.9 in adult, unspecified obesity type; Translations: [Class 1 obesity without serious comorbidity with body mass index (BMI) of 31.0 to 31.9 in adult, unspecified obesity type] Onset: 12-25-2024 Past or Other Problems Problem Classification Problem Date Documented Date Episodic/Chronic Administrative/social admission (20 sources) Patient encounter status; Translations: [Encounter for pre-employment examination] Onset: 01-10-2023 Episodic Other aftercare (1 source) 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; Translations: [Type 2 diabetes mellitus with other specified complication, with long-term current use of insulin (HCC)] Onset: 10-31-2024 Episodic Other connective tissue disease (1 source) Other specified soft tissue disorders; Translations: [Leg swelling] Onset: 02-18-2025 Episodic Other nutritional; endocrine; and metabolic disorders (20 sources) Severe obesity; Translations: [Morbid (severe) obesity due to excess calories] Onset: 01-10-2023 Resolved: 07-20-2023 Chronic Other nutritional; endocrine; and metabolic disorders (20 sources) Body mass index 40+ - severely obese; Translations: [Body mass index (BMI) 40.0-44.9, adult] Onset: 01-10-2023 Resolved: 07-20-2023 Chronic Other nutritional; endocrine; and metabolic disorders (1 source) Other symptoms and signs concerning food and fluid intake; Translations: [Abnormal craving] Onset: 02-12-2025 Episodic Other screening for suspected conditions (not mental disorders or infectious disease) (5 sources) Cancer cervix screening status; Translations: [Encounter for screening for malignant neoplasm of cervix] Onset: 02-18-2025 Episodic Other skin disorders (2 sources) Rash and other nonspecific skin eruption; Translations: [Rash] Onset: 05-10-2024 Episodic Other skin disorders (1 source) Hirsutism; Translations: [Hirsutism] Onset: 12-25-2024 Episodic Residual codes; unclassified (20 sources) Postoperative state; Translations: [Other specified postprocedural states] Onset: 05-09-2025 07-25-2024 Episodic Screening and history of mental health and substance abuse codes (2 sources) Encounter for screening for depression; Translations: [Encounter for screening examination for other mental health and behavioral disorders] Onset: 02-18-2025 Episodic Viral infection (3 sources) Acute viral disease; Translations: [Viral infection, unspecified] Onset: 11-08-2023 11-08-2023 Episodic Results Test Name Value Interpretation Reference Range Facility CNOVon 09-30-2025 CNOV Office Visit ([facility]) CINDY ALANIS ([id number]) 1985 F Date Time Provider Department 09/30/25 9:00 AM PATRICIA ALVAREZ During your visit today, we recorded the following information about you: Pulse Blood pressure Weight 77/minute 123/86 120.7 kg Patricia Alvarez DO 09/30/2025 4:41 PM Signed [facility] Patricia Alvarez DO ASSESSMENT/PLAN: 1. History of bilateral breast reduction surgery - ICD9: V45.89, ICD10: Z98.890 (primary diagnosis) Suspect pain and tenderness is related to postsurgical changes at this time with low suspicion for underlying infection. Given significant past family history of breast cancer, will obtain breast ultrasound. Referral placed to high risk breast center. Referral for plastic surgery for second opinion ordered. - CONSULT TO PLASTIC SURGERY - US BREAST LTD LEFT - CONSULT TO BREAST CTR HEREDITARY HIGH RISK 2. Breast pain, left - ICD9: 611.71, ICD10: N64.4 Encouraged patient to utilize high support sports bras when exercising and at night to maximize support and minimize associated pain. Encouraged patient to continue OTC medication use for pain/swelling, and to continue using warm compresses. - CONSULT TO PLASTIC SURGERY - US BREAST LTD LEFT 3. Family history of breast cancer - ICD9: V16.3, ICD10: Z80.3 Referral to hereditary high risk breast center sent. - CONSULT TO PLASTIC SURGERY - US BREAST LTD LEFT - CONSULT TO BREAST CTR HEREDITARY HIGH RISK Patient to return to clinic as needed for worsening symptoms. Patient should return to clinic in approx 4 months for annual examination. Patricia Alvarez, SUBJECTIVE: Cindy Alanis is a 40 year old female here today for breast pain. Patient reports approximately 2-month history of left-sided breast pain. Notes that she had a breast reduction in March which was botched. Notes that shortly after her initial operation, she developed a hole in her skin which was large enough to fit her hand in, which required return to clinic and suturing. Notes that she was cleared to exercise in May, but delayed exercising until not mid-late July, when she noticed a ripping/pulling sensation with associated swelling and significant tenderness. Notes sensation of something poking her. Notes that her scar is starting to stretch out as well despite adequate protein intake. Has tried reduction in her activity level, OTC medications, warm compresses, and avoiding underwire bras with minimal improvement. Notes that she does not wish to go back to the previous plastic surgeon due to concerns over the operation but is agreeable to referral for second opinion. Patient denies any reopening of old wounds, erythema, or overt drainage from the area. Of note, patient has a significant family history of breast cancer, but has not undergone genetic testing. Paternal grandmother BC x3, paternal aunt x2, maternal aunt at early ages. Had a cousin of breast cancer in her 20s. Patient without any overt breast lumps or bumps that she has been aware of. Mammogram recently ordered, the patient currently not wishing to pursue mammogram due to acute breast tenderness. The history is provided by the patient and medical records. PAST MEDICAL HISTORY Diagnosis Date Anxiety Depression Diabetes mellitus (HCC) Hypertension Obesity Post-operative state Spinal stenosis Traumatic brain injury (HCC) 12/2023 PAST SURGICAL HISTORY Procedure Laterality Date SECTION HX x3 HYSTERECTOMY Partial PANNICULECTOMY 06/2024 SOCIAL HISTORY[1] FAMILY HISTORY Problem Relation Age of Onset Osteoporosis Mother Hypertension Father Diabetes Father PAIN EVALUATION 09/30/2025 0859 Pain Level: 4 Pain Location: Breast-Left Description: Sharp;Stabbing Duration Amount of Time: 2 Duration Units: Months Frequency: Continuous Comments: surgery march 2025 ALLERGIES Allergen Reactions Dihydroaminopryidin* Rash, Hives, Diarrhea, Itching Hydrocodone Rash, Hives Wellbutrin [Bupropi* Intolerance Suicidal thoughts Erythromycin Rash, Diarrhea, Itching Oxycodone-Acetamino* Rash, Diarrhea, Vomiting Sulfa (Sulfonamide * Rash, Diarrhea Sulfamethoxazole-Tr* Rash, Diarrhea, Itching Trulicity [Dulaglut* Rash, Other: See Comments KNOTS UNDER SKIN Cymbalta [Duloxetin* Rash Lethargic Azithromycin Diarrhea Medication List prior to visit Current Outpatient Medications Medication Sig tirzepatide (MOUNJARO) 5 mg/0.5 mL pen injector Inject 5 mg subcutaneously one time a week for 28 days. metoprolol succinate ER (TOPROL XL) 100 mg Take 1 tablet by mouth daily at bedtime. metFORMIN ER (GLUCOPHAGE XR) 500 mg 24 hr tablet Take 2 tablets by mouth daily with breakfast. (Patient taking differently: Take 500 mg by mouth daily with breakfast.) triamcinolone (KENALOG) 0.025 % ointment Apply to a (more content not included)... Normal [facility] Absolute lymphocyte countOrd ered By: Jessica Henao on 08-27-2025 Lymphocytes Auto (Unsp spec) [#/Vol] 2.61 10*3/uL 0.83-4.51 [facility] Absolute neutrophil countOrd ered By: Jessica Henao on 08-27-2025 Neutrophils (Bld) [#/Vol] 6.6 10*3/uL 2.0-7.7 [facility] Acute Abdomen Inc Cheston Acute Abdomen Inc Chest [facility] [address] [place] [address] Acute Abdomen Inc Chest MR#: [id number] Acct: [id number] Name: CINDY ALANIS Rep #: [id number] : 1985 F 40 From: Thomas Monae MD PCP: Care Physician,No Primary Status: REG ER Study: Acute Abdomen Inc Chest Date of Exam: 08/27/25 Exam# [id number] Ordering Dr: Jessica Henao DO PROCEDURE: ACUTE ABDOMEN INC CHEST 08/27/2025 REASON FOR EXAM: PAIN TECHNIQUE: Procedure Code: RADABDCA Modality: DX Procedure: ACUTE ABDOMEN INC CHEST COMPARISON: Previous CT from 2023 FINDINGS: Hardware: None Heart: The heart size is normal. Lungs: The lungs are clear. Bowel gas: No evidence of ileus or obstruction retained stool noted throughout the colon Free air: None Calcifications: No suspicious calcifications Bones: Mild degenerative bony changes Other: RAD/Acute Abdomen Inc Chest IMPRESSION: No acute pulmonary process No acute abdominal or pelvic process Retained stool Reading Location: [id number] CC: Dr. Jessica Henao, DO; No Primary Care Physician Insurance Advisor: Signed Normal [facility] Anion gap in Serum or Plasma Ordered By: Jessica Henao on 08-27-2025 Anion gap [Moles/Vol] 13 mmol/L 5-15 [facility] Automated lymphocyte count a s percentage of total leukocytesOrdered By: Jessica Henao on 08-27-2025 Lymphocytes/100 WBC Auto (Unsp spec) 25.4 % 19-41 [facility] BUN/creatinine ratioOrdered By: Jessicacara Henao on 08-27-2025 Urea nitrogen/Creatinine [Mass ratio] 19.5 mg/mg 10- [facility] Basophil percentageOrdered B y: Jessica Henao on 08-27-2025 Basophils/100 WBC (Bld) 0.5 % 0-1 [facility] Bilirubin, totalOrdered By: Jessica Henao on 08-27-2025 Bilirubin [Mass/Vol] 0.71 mg/dL 0.00-1.30 [facility] CBC W/Diff, Automatedon Absolute Lymph 2.61 X10 3/uL Normal 0.83-4.51 [facility] Comment on above: Performed By: #### L 500.4050, L100.0100, L501.2450 #### [facility] [address] [place], [address] Absolute Neut 6.6 X10 3/uL Normal 2.0-7.7 [facility] Comment on above: Performed By: #### L 500.4050, L100.0100, L501.2450 #### [facility] [address] [place], [address] Basophils/100 WBC (Bld) 0.5 % Normal 0-1 [facility] Comment on above: Performed By: #### L 500.4050, L100.0100, L501.2450 #### [facility] [address] [place], [address] Eosinophils/100 WBC (Bld) 3.1 % Normal 0-5 [facility] Comment on above: Performed By: #### L 500.4050, L100.0100, L501.2450 #### [facility] [address] [place], [address] Erythrocyte distribution width (RBC) [Ratio] 13.3 % Normal 11.6-14.6 [facility] Comment on above: Performed By: #### L 500.4050, L100.0100, L501.2450 #### [facility] [address] [place], [address] Hematocrit (Bld) [Volume fraction] 46.8 % Normal 37-47 [facility] Comment on above: Performed By: #### L 500.4050, L100.0100, L501.2450 #### [facility] [address] [place], [address] Hemoglobin (Bld) [Mass/Vol] 15.1 g/dL High 12.0-15.0 [facility] Comment on above: Performed By: #### L 500.4050, L100.0100, L501.2450 #### [facility] [address] [place], [address] IG% 0.200 Normal 0.0-0.9 [facility] Comment on above: Result Comment: IG% - Immature Granulocytes (promyelocytes, myelocytes and metamyelocytes) > 1% indicates that a LEFT SHIFT is Present. Performed By: #### L 500.4050, L100.0100, L501.2450 #### [facility] [address] [place], [address] Lymphocytes/100 WBC (Bld) 25.4 % Normal 19-41 [facility] Comment on above: Performed By: #### L 500.4050, L100.0100, L501.2450 #### [facility] [address] [place], [address] MCH (RBC) [Entitic mass] 28.9 pg Normal 27.0-32.0 [facility] Comment on above: Performed By: #### L 500.4050, L100.0100, L501.2450 #### [facility] [address] [place], [address] MCHC (RBC) [Mass/Vol] 32.3 g/dL Normal 32-36 [facility] Comment on above: Performed By: #### L 500.4050, L100.0100, L501.2450 #### [facility] [address] [place], [address] MCV (RBC) [Entitic vol] 89.5 fL Normal 81-99 [facility] Comment on above: Performed By: #### L 500.4050, L100.0100, L501.2450 #### [facility] [address] [place], [address] Monocytes/100 WBC (Bld) 6.3 % Normal 0-10 [facility] Comment on above: Performed By: #### L 500.4050, L100.0100, L501.2450 #### [facility] [address] [place], [address] Neutrophils/100 WBC (Bld) 64.5 % Normal 47-70 [facility] Comment on above: Performed By: #### L 500.4050, L100.0100, L501.2450 #### [facility] [address] [place], [address] Nucleated RBC (Bld) [#/Vol] 0 10*3/uL Normal 0-5 [facility] Comment on above: Performed By: #### L 500.4050, L100.0100, L501.2450 #### [facility] [address] [place], [address] Platelet mean volume (Bld) [Entitic vol] 9.5 fL Normal 6.2-12.0 [facility] Comment on above: Performed By: #### L 500.4050, L100.0100, L501.2450 #### [facility] [address] [place], [address] Platelets (Bld) [#/Vol] 340 10*3/uL Normal 150-450 [facility] Comment on above: Performed By: #### L 500.4050, L100.0100, L501.2450 #### [facility] [address] [place], [address] RBC (Bld) [#/Vol] 5.23 10*6/uL Normal 4.2-5.4 [facility] Comment on above: Performed By: #### L 500.4050, L100.0100, L501.2450 #### [facility] [address] [place], [address] RDW SD 43.7 fl Normal 35.1-43.9 [facility] Comment on above: Performed By: #### L 500.4050, L100.0100, L501.2450 #### [facility] [address] [place], [address] WBC (Bld) [#/Vol] 10.3 10*3/uL Normal 4.4-11.0 [facility] Comment on above: Performed By: #### L 500.4050, L100.0100, L501.2450 #### [facility] [address] [place], [address] Carbon dioxide, total [Moles /volume] in Central venous bloodOrdered By: Jessica Henao on 08-27-2025 CO2 [Moles/Vol] 20.5 mmol/L Low 21.0-32.0 [facility] Chloride assayOrdered By: Zach Henao on 08-27-2025 Chloride [Moles/Vol] 103 mmol/L 98-108 [facility] Comprehensive Metabolic Prof ilon 08-27-2025 Albumin [Mass/Vol] 4.3 g/dL Normal 3.5-5.0 [facility] Comment on above: Performed By: #### L 500.4050, L100.0100, L501.2450 #### [facility] [address] [place], [address] Albumin/Globulin [Mass ratio] 1.5 {ratio} Normal 0.9-2.4 [facility] Comment on above: Performed By: #### L 500.4050, L100.0100, L501.2450 #### [facility] [address] [place], [address] ALK PHOS 76 U/L Normal 35-104 [facility] Comment on above: Performed By: #### L 500.4050, L100.0100, L501.2450 #### [facility] [address] [place], [address] ALT [Catalytic activity/Vol] 17 U/L Normal <=34 [facility] Comment on above: Performed By: #### L 500.4050, L100.0100, L501.2450 #### [facility] [address] [place], [address] AST [Catalytic activity/Vol] 26 U/L Normal <=31 [facility] Comment on above: Result Comment: Hemo lysis present, Results??could be affected. ?? Performed By: #### L 500.4050, L100.0100, L501.2450 #### [facility] [address] [place], [address] Bilirubin [Mass/Vol] 0.71 mg/dL Normal 0.00-1.30 [facility] Comment on above: Performed By: #### L 500.4050, L100.0100, L501.2450 #### [facility] [address] [place], [address] BUN/CRE 19.5 RATIO Normal 10-20 [facility] Comment on above: Performed By: #### L 500.4050, L100.0100, L501.2450 #### [facility] [address] [place], [address] Calcium [Mass/Vol] 9.6 mg/dL Normal 7.6-11.0 [facility] Comment on above: Performed By: #### L 500.4050, L100.0100, L501.2450 #### [facility] [address] [place], [address] Chloride [Moles/Vol] 103 mmol/L Normal 98-108 [facility] Comment on above: Performed By: #### L 500.4050, L100.0100, L501.2450 #### [facility] [address] [place], [address] CO2 [Moles/Vol] 20.5 mmol/L Low 21.0-32.0 [facility] Comment on above: Performed By: #### L 500.4050, L100.0100, L501.2450 #### [facility] [address] [place], [address] Creatinine [Mass/Vol] 0.88 mg/dL Normal 0.70-1.20 [facility] Comment on above: Performed By: #### L 500.4050, L100.0100, L501.2450 #### [facility] [address] [place], [address] ECRCL 119.59 ml/min Normal 50-250 [facility] Comment on above: Performed By: #### L 500.4050, L100.0100, L501.2450 #### [facility] [address] [place], [address] GAP 13 Normal 5-15 [facility] Comment on above: Performed By: #### L 500.4050, L100.0100, L501.2450 #### [facility] [address] [place], [address] GFR/1.73 sq M.predicted among non-blacks MDRD (S/P/Bld) [Vol rate/Area] 84 mL/min/{1.73_m2} Normal >60 [facility] Comment on above: Result Comment: mL/m in/1.73m2 CKD-EPI Creatinine Equation (2020) Performed By: #### L 500.4050, L100.0100, L501.2450 #### [facility] [address] [place], [address] Globulin (S) [Mass/Vol] 2.9 g/dL Normal 2.2-4.2 [facility] Comment on above: Performed By: #### L 500.4050, L100.0100, L501.2450 #### [facility] [address] [place], [address] Glucose [Mass/Vol] 81 mg/dL Normal 70-99 [facility] Comment on above: Performed By: #### L 500.4050, L100.0100, L501.2450 #### [facility] [address] [place], [address] Potassium [Moles/Vol] 4.4 mmol/L Normal 3.3-5.1 [facility] Comment on above: Result Comment: Hemo lysis present, Results??could be affected. ?? Performed By: #### L 500.4050, L100.0100, L501.2450 #### [facility] [address] [place], [address] Sodium [Moles/Vol] 137 mmol/L Normal 133-145 [facility] Comment on above: Performed By: #### L 500.4050, L100.0100, L501.2450 #### [facility] [address] [place], [address] T PROT 7.2 g/dL Normal 5.9-8.4 [facility] Comment on above: Performed By: #### L 500.4050, L100.0100, L501.2450 #### [facility] [address] [place], [address] Urea nitrogen [Mass/Vol] 17 mg/dL Normal 4-19 [facility] Comment on above: Performed By: #### L 500.4050, L100.0100, L501.2450 #### [facility] [address] [place], [address] Emergency Department Summary on 08-27-2025 Emergency Department Summary [facility] Medical Records Department [address] [place] [address] Emergency Department Summary 08/27/25 MR#: [id number] Acct: [id number] Name: CINDY ALANIS Rep #: [id number] : 1985 40 From: Jessica Henao DO PCP: Care Physician,No Primary Status:DEP ER Location: ED HPI History of Present Illness Chief Complaint: Foreign Body Informant: patient Onset/Context/Timing Onset: Today Context: Sudden Onset Timing: Continuous Quality: Sharp Location: Epigastric area Worsened by: Movement, drinking Relieved by: Nothing Narrative Narrative: Patient presents with upper abdominal pain that began today. Patient states she drank a protein shake and noted some broken pieces of plastic in the shake. Patient thinks she may have drank some of the plastic pieces. Patient states her pain is sharp. Patient states the pain is over the epigastric area. Patient states her pain is worse with any movement or with drinking water. Patient states nothing makes it better. Patient denies any fevers or chills. Patient denies any nausea or vomiting. Patient does admit to some pain in her throat because she thinks the piece of plastic may have scratched her throat. [facility] Medical History (Updated 08/27/25 @ 15:[address] Jessica Henao, DO) Hypertension Other group home (current) drug therapy Migraine without aura, not intractable, without status migrainosus Major depressive disorder, recurrent, moderate Mixed hyperlipidemia Vitamin D deficiency, unspecified Type 2 diabetes mellitus with hyperglycemia Fibromyalgia Physical exam, pre-employment Home Medications ???Medication ???Instructions ???Recorded ???Last Taken ???Type metformin 1,000 mg tablet 1,000 mg PO DAILY 07/04/22 Unknown History metoprolol succinate 100 mg 100 mg PO DAILY 07/04/22 Unknown H istory capsule sprinkle, ext. release 24 hr tirzepatide 12.5 mg/0.5 mL 2.5 mg subcut QWEEK 09/22/23 Unkno wn History subcutaneous pen injector (Mounjaro) Allergy/AdvReac Type Severity Reaction Status Date / Time Dihydroaminopryidine Allergy Rash Verified 08/27/25 11:20 Antibiotics hydrocodone Allergy Hives Verified 08/27/25 11:20 Sulfa (Sulfonamide Allergy Hives Verified 08/27/25 11:20 Antibiotics) sulfamethoxazole (From Allergy Hives Verified 08/27/25 11:20 Bactrim) trimethoprim (From Bactrim) Allergy Hives Verified 08/27/25 11:20 bupropion (From Wellbutrin) AdvReac Intermediate Other Verified 08/27/25 11:20 azithromycin AdvReac Diarrhea Verified 08/27/25 11:20 Surgical History (Updated 08/27/25 @ 15:[address] Jessica Henao, DO) S/P panniculectomy Hx of bilateral breast reduction surgery History of hysterectomy History of 3 sections Social History household members: spouse and none housing: house Smoking Status: Never smoker substance use type: does not use ROS ROS ED Constitutional Constitutional ED: Denies chills or fever(s) Eyes Eyes: Denies blurry vision or change in vision ENT ENT ED: Reports sore throat; Denies rhinorrhea Cardiovascular Cardiovascular: Denies chest pain or palpitations Respiratory/Chest Respiratory/Chest: Denies cough or dyspnea Gastrointestinal Gastrointestinal: Reports abdominal pain; Denies nausea or vomiting Genitourinary Genitourinary ED: Denies dysuria or hematuria Musculoskeletal Musculoskeletal: Denies back pain or neck pain Integumentary Denies abscess or rash Neurologic Neurologic: Denies headache(s) or weakness Allergic/Immunologic Allergic/Immunologic ED: Denies mouth swelling or urticaria EXAM Physical Exam Const Vital Signs: 08/27/25 11:20 08/27/25 12:19 Temperature 97.9 F Temperature Source Temporal Pulse Rate 77 Respiratory Rate 18 Respiratory Effort Normal Blood Pressure 154/98 H Blood Pressure Mean 116 Pulse Ox 100 Oxygen Delivery Method Room Air Positive well nourished and well developed General Appearance ED: well developed and NAD HEENT Reports moist mucous membranes Neck supple and no JVD Resp normal respiratory effort and clear to auscultation bilaterally Cardio regular rate and regular rhythm GI non-distended Palpation: soft and tender epigastric; Negative for guarding or rebound tenderness present Extremity normal to inspection Neuro oriented x3, CN's II-XII intact bilaterally and no sensory deficits noted Sensorium / Orientation: alert Motor Exam: strength 5/5 throughout Psych mental status grossly normal MDM MDM MDM Narrative Medical decision making narrative: Differential diagnosis includes swallowed foreign body, perforation, gastritis, pancreatitis, cholecystitis, cholelithiasis, and electrolyte abnormality. CBC wi (more content not included)... Normal [facility] Eosinophil percentageOrdered By: Jessica Henao on 08-27-2025 Eosinophils/100 WBC (Bld) 3.1 % 0-5 [facility] Erythrocyte distribution wid th ratioOrdered By: Jessica Henao on 08-27-2025 Erythrocyte distribution width (RBC) [Ratio] 13.3 % 11.6-14.6 [facility] Erythrocyte distribution wid th standard deviationOrdered By: Jessica Henao on 08-27-2025 Erythrocyte distribution width (RBC) [Ratio] 43.7 fl 35.1-43.9 [facility] Glomerular filtration rate ( GFR) estimation/1.73 sq m using serum, plasma, or whole bOrdered By: Jessica Henao on 08-27-2025 GFR/1.73 sq M.predicted among non-blacks MDRD (S/P/Bld) [Vol rate/Area] 84 mL/min/{1.73_m2} >60 [facility] Comment on above: mL/min/1.73m2 CKD-EP I Creatinine Equation (2020) Hematocrit Auto (Bld) [Volum e fraction]Ordered By: Jessica Henao on 08-27-2025 Hematocrit (Bld) [Volume fraction] 46.8 % 37-47 [facility] Hemoglobin measurementOrdere d By: Jessica Henao on 08-27-2025 Hemoglobin (Bld) [Mass/Vol] 15.1 g/dL High 12.0-15.0 [facility] Immature granulocytes/100 WB C Auto (Bld)Ordered By: Jessica Henao on 08-27-2025 Immature granulocytes/100 WBC (Bld) 0.200 % 0.0-0.9 [facility] Comment on above: IG% - Immature Granu locytes (promyelocytes, myelocytes and metamyelocytes) > 1% indicates that a LEFT SHIFT is Present. Laboratory - Chemistry and C hemistry - challengeOrdered By: Jessica Henao on 08-27-2025 AST [Catalytic activity/Vol] 26 U/L <32 [facility] Comment on above: Hemolysis present, R esults could be affected. Lipaseon 08-27-2025 Lipase [Catalytic activity/Vol] 47 U/L Normal 13-75 [facility] Comment on above: Result Comment: Kanika rebolledo note: LIPASE revised reference range effective 23. New Lipase methodology. Expected to produce lower values than the previous assay method. NEW Reference Range: 13 - 75 U/L Performed By: #### L 500.4050, L100.0100, L501.2450 #### [facility] [address] [place], [address] Lipase measurementOrdered By : Jessica Henao on 08-27-2025 Lipase [Catalytic activity/Vol] 47 U/L 13-75 [facility] Comment on above: Please note:LIPASE r evised reference range effective 23. New Lipase methodology. Expected to produce lower values than the previous assay method. NEW Reference Range: 13 - 75 U/L MCV (mean corpuscular volume ) determinationOrdered By: Jessica Henao on 08-27-2025 MCV (RBC) [Entitic vol] 89.5 fL 81-99 [facility] Mean corpuscular hemoglobin (MCH) determinationOrdered By: Jessica Henao on 08-27-2025 MCH (RBC) [Entitic mass] 28.9 pg 27.0-32.0 [facility] Mean corpuscular hemoglobin concentration (MCHC) determinationOrdered By: Jessica Henao on 08-27-2025 MCHC (RBC) [Mass/Vol] 32.3 g/dL 32-36 [facility] Mean platelet volume determi nationOrdered By: Jessica Henao on 08-27-2025 Platelet mean volume (Bld) [Entitic vol] 9.5 fL 6.2-12.0 [facility] Monocyte percentageOrdered B y: Jessica Henao on 08-27-2025 Monocytes/100 WBC (Bld) 6.3 % 0-10 [facility] Neutrophil percentageOrdered By: Jessica Henao on 08-27-2025 Neutrophils/100 WBC (Bld) 64.5 % 47-70 [facility] Nucleated red blood cell per centageOrdered By: Jessica Henao on 08-27-2025 Nucleated RBC/100 WBC (Bld) [Ratio] 0 % 0-5 [facility] Platelet countOrdered By: Zach Henao on 08-27-2025 Platelets (Bld) [#/Vol] 340 10*3/uL 150-450 [facility] Potassium measurement (mass/ volume)Ordered By: Jessica Henao on 08-27-2025 Potassium (Unsp spec) [Mass/Vol] 4.4 mmol/L 3.3-5.1 [facility] Comment on above: Hemolysis present, R esults could be affected. RBC Auto (Bld) [#/Vol]Ordere d By: Jessica Henao on 08-27-2025 RBC (Bld) [#/Vol] 5.23 10*6/uL 4.2-5.4 [facility] Serum creatinine measurement (mass/volume)Ordered By: Jessica Henao on 08-27-2025 Creatinine [Mass/Vol] 0.88 mg/dL 0.70-1.20 [facility] Serum globulin measurementOr dered By: Jessica Henao on 08-27-2025 Globulin (S) [Mass/Vol] 2.9 g/dL 2.2-4.2 [facility] Serum glucose measurement (m ass/volume)Ordered By: Jessica Henao on 08-27-2025 Glucose [Mass/Vol] 81 mg/dL 70-99 [facility] Serum or plasma alanine dee otransferase (ALT) measurementOrdered By: Jessica Henao on 08-27-2025 ALT [Catalytic activity/Vol] 17 U/L <35 [facility] Serum or plasma albumin ilda urement (mass/volume)Ordered By: Jessica Henao on 08-27-2025 Albumin [Mass/Vol] 4.3 g/dL 3.5-5.0 [facility] Serum or plasma albumin/glob ulin mass ratioOrdered By: Jessica Henao on 08-27-2025 Albumin/Globulin [Mass ratio] 1.5 {ratio} 0.9-2.4 [facility] Serum or plasma alkaline carlos sphatase measurementOrdered By: Jessica Henao on 08-27-2025 ALP [Catalytic activity/Vol] 76 U/L 35-104 [facility] Serum or plasma calcium ilda urement (mass/volume)Ordered By: Jessica Henao on 08-27-2025 Calcium [Mass/Vol] 9.6 mg/dL 7.6-11.0 [facility] Serum or plasma urea nitroge n measurement (mass/volume)Ordered By: Jessica Henao on 08-27-2025 Urea nitrogen [Mass/Vol] 17 mg/dL 4-19 [facility] Sodium levelOrdered By: Jessica Henao on 08-27-2025 Sodium [Moles/Vol] 137 mmol/L 133-145 [facility] Total proteinOrdered By: Elizabeth Henao on 08-27-2025 Protein [Mass/Vol] 7.2 g/dL 5.9-8.4 [facility] White blood cell (WBC) count Ordered By: Jessica Henao on 08-27-2025 WBC (Bld) [#/Vol] 10.3 10*3/uL 4.4-11.0 [facility] 25(OH)D3 SerPl-mCncon 2024 25-hydroxyvitamin D3 [Mass/Vol] 49.6 ng/mL Normal 31.0-80.0 [facility] Comment on above: Order Comment: Speci men Type: BLOOD SPECIMEN Ordering Facility: [facility] Address: [address] [place] [address] Performed By: #### 1 989-3 #### [facility] CLIA [id number] [address] [place] [address] OF [facility] Comprehensive metabolic 2000 panelOrdered By: Therese Santiago on 08-04-2025 Albumin [Mass/Vol] 4.2 g/dL 3.9 - 4.9 g/dL [facility] ALP [Catalytic activity/Vol] 67 U/L 34 - 123 U/L [facility] ALT [Catalytic activity/Vol] 13 U/L 7 - 38 U/L [facility] Anion gap [Moles/Vol] 9 mmol/L 8 - 15 mmol/L [facility] AST [Catalytic activity/Vol] 19 U/L 13 - 35 U/L [facility] Bilirubin [Mass/Vol] 0.6 mg/dL 0.2 - 1 .3 mg/dL [facility] Calcium [Mass/Vol] 9.6 mg/dL 8.5 - 10. 2 mg/dL [facility] Chloride [Moles/Vol] 103 mmol/L 98 - 10 7 mmol/L [facility] CO2 [Moles/Vol] 24 mmol/L 22 - 30 mmol/L [facility] Creatinine [Mass/Vol] 0.93 mg/dL 0.58 - 0.96 mg/dL [facility] GFR/1.73 sq M.predicted among non-blacks MDRD (S/P/Bld) [Vol rate/Area] 79 mL/min/{1.73_m2} - PINF [facility] Comment on above: Estimated Glomerular Filtration Rate (eGFR) is calculated using the 2020 CKD-EPI creatinine equation. This equation utilizes serum creatinine, sex, and age as parameters. The creatinine assay has traceable calibration to isotope dilution-mass spectrometry. Refer to KDIGO guidelines for clinical interpretation. In patients with unstable renal function, e.g. those with acute kidney injury, the eGFR may not accurately reflect actual GFR. Glucose [Mass/Vol] 111 mg/dL High 74 - 99 mg/dL [facility] Comment on above: The [place] Diabete s Association (ADA) provides guidance for cutoff values for fasting glucose and random glucose. The ADA defines fasting as no caloric intake for at least 8 hours. Fasting plasma glucose results between 100 to 125 mg/dL indicate increased risk for diabetes (prediabetes). Fasting plasma glucose results greater than or equal to 126 mg/dL meet the criteria for diagnosis of diabetes. In the absence of unequivocal hyperglycemia, results should be confirmed by repeat testing. In a patient with classic symptoms of hyperglycemia or hyperglycemic crisis, random plasma glucose results greater than or equal to 200 mg/dL meet the criteria for diagnosis of diabetes. Reference: Standards of Medical Care in Diabetes 2016, [place] Diabetes Association. Diabetes Care. 2016.39(Suppl 1). Interpretation and review of laboratory results Abnormal [facility] Potassium [Moles/Vol] 4.7 mmol/L 3.7 - 5.1 mmol/L [facility] Protein [Mass/Vol] 6.3 g/dL 6.3 - 8.0 g/dL [facility] Sodium [Moles/Vol] 136 mmol/L 136 - 144 mmol/L [facility] Urea nitrogen [Mass/Vol] 16 mg/dL 7 - 21 mg/dL [facility] Comprehensive metabolic 2000 panelon 08-04-2025 Albumin [Mass/Vol] 4.2 g/dL Normal 3.9-4.9 [facility] Comment on above: Order Comment: Speci men Type: BLOOD SPECIMEN Ordering Facility: [facility] Address: [address] [place] [address] Performed By: #### 1 989-3 #### [facility] CLIA [id number] [address] [place], [place] [address] [place] [address] [place] ALP [Catalytic activity/Vol] 67 U/L Normal 34-123 [facility] Comment on above: Order Comment: Speci men Type: BLOOD SPECIMEN Ordering Facility: [facility] Address: [address] [place], [place] [address] Performed By: #### 1 989-3 #### [facility] CLIA [id number] [address] [place], [place] [address] [place] ALT [Catalytic activity/Vol] 13 U/L Normal 7-38 [facility] Comment on above: Order Comment: Speci men Type: BLOOD SPECIMEN Ordering Facility: [facility] Address: [address] [place] [address] Performed By: #### 1 989-3 #### [facility] CLIA [id number] [address] [place] [address] [place] Anion gap [Moles/Vol] 9 mmol/L Normal 8-15 [facility] Comment on above: Order Comment: Speci men Type: BLOOD SPECIMEN Ordering Facility: [facility] Address: [address] [place] [address] Performed By: #### 1 989-3 #### [facility] CLIA [id number] [address] [place] [address] [place] AST [Catalytic activity/Vol] 19 U/L Normal 13-35 [facility] Comment on above: Order Comment: Speci men Type: BLOOD SPECIMEN Ordering Facility: [facility] Address: [address] [place] [address] Performed By: #### 1 989-3 #### [facility] CLIA [id number] [address] [place] [address] [place] Bilirubin [Mass/Vol] 0.6 mg/dL Normal 0.2-1.3 [facility] Comment on above: Order Comment: Speci men Type: BLOOD SPECIMEN Ordering Facility: [facility] Address: [address] [place] [address] Performed By: #### 1 989-3 #### [facility] CLIA [id number] [address] [place] [address] [place] Calcium [Mass/Vol] 9.6 mg/dL Normal 8.5-10.2 [facility] Comment on above: Order Comment: Speci men Type: BLOOD SPECIMEN Ordering Facility: [facility] Address: [address] [place] [address] Performed By: #### 1 989-3 #### [facility] CLIA [id number] [address] [place], [place] [address] [place] Chloride [Moles/Vol] 103 mmol/L Normal 98-107 [facility] Comment on above: Order Comment: Speci men Type: BLOOD SPECIMEN Ordering Facility: [facility] Address: [address] [place] [address] Performed By: #### 1 989-3 #### [facility] CLIA [id number] [address] [place], [place] [address] [place] CO2 [Moles/Vol] 24 mmol/L Normal 22-30 [facility] Comment on above: Order Comment: Speci men Type: BLOOD SPECIMEN Ordering Facility: [facility] Address: [address] [place] [address] Performed By: #### 1 989-3 #### [facility] CLIA [id number] [address] [place], [place] [address] [place] Creatinine [Mass/Vol] 0.93 mg/dL Normal 0.58-0.96 [facility] Comment on above: Order Comment: Speci men Type: BLOOD SPECIMEN Ordering Facility: [facility] Address: [address] [place], [place] [address] Performed By: #### 1 989-3 #### [facility] CLIA [id number] [address] [place], [place] [address] [place] eGFRcr SerPlBld CKD-EPI 2020 79 mL/min/1.73m??? Normal >=60 [facility] Comment on above: Order Comment: Herve ospina Type: BLOOD SPECIMEN Ordering Facility: [facility] Address: [address] [place] [address] Result Comment: Susan mated Glomerular Filtration Rate (eGFR) is calculated using the 2020 CKD-EPI creatinine equation. This equation utilizes serum creatinine, sex, and age as parameters. The creatinine assay has traceable calibration to isotope dilution-mass spectrometry. Refer to KDIGO guidelines for clinical interpretation. In patients with unstable renal function, e.g. those with acute kidney injury, the eGFR may not accurately reflect actual GFR. Performed By: #### 1 989-3 #### [facility] CLIA [id number] [address] [place] [address] [place] Glucose [Mass/Vol] 111 mg/dL High 74-99 [facility] Comment on above: Order Comment: Herve ospina Type: BLOOD SPECIMEN Ordering Facility: [facility] Address: [address] [place] [address] Result Comment: The [place] Diabetes Association (ADA) provides guidance for cutoff values for fasting glucose and random glucose. The ADA defines fasting as no caloric intake for at least 8 hours. Fasting plasma glucose results between 100 to 125 mg/dL indicate increased risk for diabetes (prediabetes). Fasting plasma glucose results greater than or equal to 126 mg/dL meet the criteria for diagnosis of diabetes. In the absence of unequivocal hyperglycemia, results should be confirmed by repeat testing. In a patient with classic symptoms of hyperglycemia or hyperglycemic crisis, random plasma glucose results greater than or equal to 200 mg/dL meet the criteria for diagnosis of diabetes. Reference: Standards of Medical Care in Diabetes 2016, [place] Diabetes Association. Diabetes Care. 2016.39(Suppl 1). Performed By: #### 1 989-3 #### [facility] CLIA [id number] [address] [place] [address] [place] Potassium [Moles/Vol] 4.7 mmol/L Normal 3.7-5.1 [facility] Comment on above: Order Comment: Herve ospina Type: BLOOD SPECIMEN Ordering Facility: [facility] Address: [address] [place] [address] Performed By: #### 1 989-3 #### [facility] CLIA [id number] [address] [place] [address] [place] Protein [Mass/Vol] 6.3 g/dL Normal 6.3-8.0 [facility] Comment on above: Order Comment: Speci men Type: BLOOD SPECIMEN Ordering Facility: [facility] Address: [address] [place] [address] Performed By: #### 1 989-3 #### [facility] CLIA [id number] [address] [place] [address] [place] Sodium [Moles/Vol] 136 mmol/L Normal 136-144 [facility] Comment on above: Order Comment: Speci men Type: BLOOD SPECIMEN Ordering Facility: [facility] Address: [address] [place] [address] Performed By: #### 1 989-3 #### [facility] CLIA [id number] [address] [place] [address] [place] Urea nitrogen [Mass/Vol] 16 mg/dL Normal 7-21 [facility] Comment on above: Order Comment: Speci men Type: BLOOD SPECIMEN Ordering Facility: [facility] Address: [address] [place] [address] Performed By: #### 1 989-3 #### [facility] CLIA [id number] [address] [place] [address] [place] HbA1c (Bld)on 08-04-2025 Average glucose Estimated from glycated hemoglobin (Bld) [Mass/Vol] 120 mg/dL Normal [facility] Comment on above: Order Comment: Speci men Type: BLOOD SPECIMEN Ordering Facility: [facility] Address: [address] [place] [address] Result Comment: eAG: (Estimated average glucose) is a calculated value from HgbA1c and is customer retention representative of the average blood glucose level in the last 2-3 month period. Performed By: #### 5 5454-3 #### [facility] CLIA [id number] [address] [place] [address] [place] HbA1c (Bld) [Mass fraction] 5.8 % High 4.3-5.6 [facility] Comment on above: Order Comment: Herve ospina Type: BLOOD SPECIMEN Ordering Facility: [facility] Address: [address] [place] [address] Result Comment: [place] Diabetes Association guidelines indicate that patients with HgbA1c in the range 5.7-6.4% are at increased risk for development of diabetes, and intervention by lifestyle modification may be beneficial. HgbA1c greater or equal to 6.5% is considered diagnostic of diabetes. Performed By: #### 5 5454-3 #### [facility] CLIA [id number] [address] [place] [address] [place] Vit B12 [facility] 025 Cobalamin (Vitamin B12) [Mass/Vol] 1315 pg/mL High 232-1245 [facility] Comment on above: Order Comment: Herve ospina Type: BLOOD SPECIMEN Ordering Facility: [facility] Address: [address] [place] [address] Performed By: #### 2 132-9 #### [facility] CLIA [id number] [address] [place] [address] [place] CNCOon 06-10-2025 CNCO Letter Text Normal [facility] CNOVon 06-10-2025 CNOV Office Visit (PLHWBA ) CINDY ALANIS ([id number]) 1985 F Date Time Provider Department 06/10/25 2:45 PM MARISOL AVENDAÑO PLHWBA During your visit today, we recorded the following information about you: Weight Height 113.9 kg 1.854 m Marisol Avendaño PA-C 06/10/2025 3:52 PM Signed Plastic Surgery Postop Note Subjective: Cindy Alanis is a 40 year old female who presents BL breast reduction 03/27/25. Left breast wound at T point has finally healed. No pain or issues at this time. She is happy with the results. ROS Denies fevers, chills, rash, wound Physical Exam Ht 6' 1 (1.85m) Wt 251 lb (113.9kg) LMP 10/16/2018 BMI 33.12 kg/(m2). General Appearance: Well appearing, alert, in no acute distress, well-hydrated, well nourished.. Skin: Skin color, texture, turgor normal, no suspicious rashes or lesions. INCISION: BL breast incisions are Healed Post-op photos taken Assessment:(Z98.890) Post-operative state (primary encounter diagnosis Plan: - Moisturizer to incisions - Full activity - FU as needed Marisol Avendaño PA-C Allergies As of Date: 06/10/2025 Noted Allergy Reaction DIHYDROAMINOPRYIDINE ANTIBIOTICS 07/18/2022 2 - Rash 4 - Hives 6 - Diarrhea 9 - Itching HYDROCODONE 07/18/2022 2 - Rash 4 - Hives WELLBUTRIN (BUPROPION) 07/20/2023 5 - Intolerance Comments: Suicidal thoughts ERYTHROMYCIN 07/24/2024 2 - Rash 6 - Diarrhea 9 - Itching OXYCODONE-ACETAMINOPHEN 07/18/2022 2 - Rash 6 - Diarrhea 11 - Vomiting SULFA (SULFONAMIDE ANTIBIOTICS) 07/18/2022 2 - Rash 6 - Diarrhea SULFAMETHOXAZOLE-TRIMET HOPRIM 07/18/2022 2 - Rash 6 - Diarrhea 9 - Itching TRULICITY (DULAGLUTIDE) 07/24/2024 2 - Rash 14 - Other: See Comments Comments: KNOTS UNDER SKIN CYMBALTA (DULOXETINE) 03/20/2025 2 - Rash Comments: Lethargic AZITHROMYCIN 01/15/2024 6 - Diarrhea Date Reviewed: 06/10/2025 Reviewed by: Miguel Dasilva MA - Fully Assessed Reason for Visit: Post Op [174] Primary Visit Diagnosis:Post-operativ e state [Z98.890] Prescriptions as of 06/10/2025 - metoprolol succinate ER (TOPROL XL) 100 mg Take 1 tablet by mouth daily at bedtime. - triamcinolone (KENALOG) 0.025 % ointment Apply to affected areas two times a day as needed. - tirzepatide (MOUNJARO) 5 mg/0.5 mL pen injector Inject 5 mg subcutaneously one time a week. - metFORMIN (GLUCOPHAGE) 500 mg tablet take 1 tablet by mouth twice a day Meds Comments as of 11/11/2022: 76 Problem List As Of Date 06/10/2025 Noted Resolved Uncontrolled type 2 diabetes mellitus with hype*01/10/2023 10/13/2023 Primary hypertension [I10] 01/10/2023 Vitamin D deficiency [E55.9] 01/10/2023 Dietary counseling and surveillance [Z71.3] 01/10/2023 Body mass index 40.0-44.9, adult (HCC) [Z68.41] 01/10/2023 07/20/2023 Class 3 severe obesity with serious comorbidity*01/10/2023 07/20/2023 Obesity, Class II, BMI 35-39.9 [E66.812] 07/20/2023 Controlled type 2 diabetes mellitus without com*10/13/2023 Preoperative examination [Z01.818] 07/15/2024 Obesity, Class I, BMI 30-34.9 [E66.811] 12/25/2024 Macromastia [N62] 03/20/2025 Post-operative state [Z98.890] 05/09/2025 Medications Discontinued During This Encounter Prescriptions - amitriptyline (ELAVIL) 25 mg tablet (Discontinued) Reported on 03/18/2025 - amitriptyline (ELAVIL) 25 mg tablet (Discontinued) Reported on 03/18/2025 Encounter Status:Closed by MARISOL AVENDAÑO on 06/10/25 [facility] Jamie 06-10-2025 AMADO Telephone (PLHWBA) CINDY ALANIS Denisse ([id number]) 1985 F Date Time Provider Department 06/10/25 SARAH JACOMEHWSLIM During your visit today, we recorded the following information about you: Rufus AshliLARRY 06/10/2025 4:39 PM Signed Patient had a post operative visit with KATHLEEN Damon today - June 10, 2025 Patient told KATHLEEN Damon she needed a letter stating she was told by Dr. Jacome not to wear her seatbelt due to recent open wound under her breast. Marisol spoke with Dr. Jacome and Dr. Jacome stated he did not tell her that and he will not write a letter stating this. Marisol told Cindy this information. The patient stated she is not leaving this room until she speak with Dr. Jacome. Dr. Jacome and myself entered the room where she stated Now I wouldn't make a liar out of you. Why are you doing that to me? You told me to not wear a seatbelt because of the pressure on my breast. You told me twice. My boyfriend has it recorded. Dr. Jacome stated I would never tell you not to wear a seatbelt. If you were to get into an accident, that would be horrible. Cindy yelled You're a liar! Dr. Jacome states I am not a liar. I never told you to not wear a seatbelt. I told her to avoid pressure on that breast due to the open wound, however never said dont wear a seatbelt. Cindy stated You will be hearing from my patent prosecution attorney. I got pulled over. I had the seatbelt over the lower half of my abdomen and the rest in the back of me. The sheriff detective states that is not allowed. Dr. Jacome states So you had your seatbelt on, correct? Cindy replied Yes, with the part behind me. Dr. Patten stated I can write you something saying you were not to apply pressure on that breast. Mango states That's all I need. She left. Ashli Hooper MA Allergies As of Date: 06/10/2025 Noted Allergy Reaction DIHYDROAMINOPRYIDINE ANTIBIOTICS 07/18/2022 2 - Rash 4 - Hives 6 - Diarrhea 9 - Itching HYDROCODONE 07/18/2022 2 - Rash 4 - Hives WELLBUTRIN (BUPROPION) 07/20/2023 5 - Intolerance Comments: Suicidal thoughts ERYTHROMYCIN 07/24/2024 2 - Rash 6 - Diarrhea 9 - Itching OXYCODONE-ACETAMINOPHEN 07/18/2022 2 - Rash 6 - Diarrhea 11 - Vomiting SULFA (SULFONAMIDE ANTIBIOTICS) 07/18/2022 2 - Rash 6 - Diarrhea SULFAMETHOXAZOLE-TRIMET HOPRIM 07/18/2022 2 - Rash 6 - Diarrhea 9 - Itching TRULICITY (DULAGLUTIDE) 07/24/2024 2 - Rash 14 - Other: See Comments Comments: KNOTS UNDER SKIN CYMBALTA (DULOXETINE) 03/20/2025 2 - Rash Comments: Lethargic AZITHROMYCIN 01/15/2024 6 - Diarrhea Date Reviewed: 06/10/2025 Reviewed by: Miguel Dasilva MA - Fully Assessed Reason for Visit: Patient Update [1234] Cmt: Conversation regarding seatbelt Prescriptions as of 06/10/2025 - metoprolol succinate ER (TOPROL XL) 100 mg Take 1 tablet by mouth daily at bedtime. - triamcinolone (KENALOG) 0.025 % ointment Apply to affected areas two times a day as needed. - tirzepatide (MOUNJARO) 5 mg/0.5 mL pen injector Inject 5 mg subcutaneously one time a week. - metFORMIN (GLUCOPHAGE) 500 mg tablet take 1 tablet by mouth twice a day Meds Comments as of 11/11/2022: 76 Problem List As Of Date 06/10/2025 Noted Resolved Uncontrolled type 2 diabetes mellitus with hype*01/10/2023 10/13/2023 Primary hypertension [I10] 01/10/2023 Vitamin D deficiency [E55.9] 01/10/2023 Dietary counseling and surveillance [Z71.3] 01/10/2023 Body mass index 40.0-44.9, adult ([facility]) [Z68.41] 01/10/2023 07/20/2023 Class 3 severe obesity with serious comorbidity*01/10/2023 07/20/2023 Obesity, Class II, BMI 35-39.9 [E66.812] 07/20/2023 Controlled type 2 diabetes mellitus without com*10/13/2023 Preoperative examination [Z01.818] 07/15/2024 Obesity, Class I, BMI 30-34.9 [E66.811] 12/25/2024 Macromastia [N62] 03/20/2025 Post-operative state [Z98.890] 05/09/2025 Encounter Status:Closed by ASHLI HOOPER on 06/10/25 [facility] CNCOon 05-23-2025 CNCO Letter Text [facility] CNPNon 05-23-2025 CNPN Telephone (AGGENS4) CINDY ALANIS ([id number]) 1985 F Date Time Provider Department 05/23/25 FELA GAN AGGENS4 During your visit today, we recorded the following information about you: Jacqueline Salas 05/23/2025 1:01 PM Signed Patient No Showed appointment. LVM for patient to call back to reschedule appointment. Cloudadmin message sent to patient. Allergies As of Date: 05/23/2025 Noted Allergy Reaction DIHYDROAMINOPRYIDINE ANTIBIOTICS 07/18/2022 2 - Rash 4 - Hives 6 - Diarrhea 9 - Itching HYDROCODONE 07/18/2022 2 - Rash 4 - Hives WELLBUTRIN (BUPROPION) 07/20/2023 5 - Intolerance Comments: Suicidal thoughts ERYTHROMYCIN 07/24/2024 2 - Rash 6 - Diarrhea 9 - Itching OXYCODONE-ACETAMINOPHEN 07/18/2022 2 - Rash 6 - Diarrhea 11 - Vomiting SULFA (SULFONAMIDE ANTIBIOTICS) 07/18/2022 2 - Rash 6 - Diarrhea SULFAMETHOXAZOLE-TRIMET HOPRIM 07/18/2022 2 - Rash 6 - Diarrhea 9 - Itching TRULICITY (DULAGLUTIDE) 07/24/2024 2 - Rash 14 - Other: See Comments Comments: KNOTS UNDER SKIN CYMBALTA (DULOXETINE) 03/20/2025 2 - Rash Comments: Lethargic AZITHROMYCIN 01/15/2024 6 - Diarrhea Date Reviewed: 05/13/2025 Reviewed by: Miguel Dasilva MA - Fully Assessed Reason for Visit: Appointment [186] Prescriptions as of 05/23/2025 - triamcinolone (KENALOG) 0.025 % ointment Apply to affected areas two times a day as needed. - metoprolol succinate ER (TOPROL XL) 100 mg Take 1 tablet by mouth daily at bedtime. - tirzepatide (MOUNJARO) 5 mg/0.5 mL pen injector Inject 5 mg subcutaneously one time a week. - amitriptyline (ELAVIL) 25 mg tablet Take 1 tablet by mouth daily at bedtime. - metFORMIN (GLUCOPHAGE) 500 mg tablet take 1 tablet by mouth twice a day Meds Comments as of 11/11/2022: 76 Problem List As Of Date 05/23/2025 Noted Resolved Uncontrolled type 2 diabetes mellitus with hype*01/10/2023 10/13/2023 Primary hypertension [I10] 01/10/2023 Vitamin D deficiency [E55.9] 01/10/2023 Dietary counseling and surveillance [Z71.3] 01/10/2023 Body mass index 40.0-44.9, adult (HCC) [Z68.41] 01/10/2023 07/20/2023 Class 3 severe obesity with serious comorbidity*01/10/2023 07/20/2023 Obesity, Class II, BMI 35-39.9 [E66.812] 07/20/2023 Controlled type 2 diabetes mellitus without com*10/13/2023 Preoperative examination [Z01.818] 07/15/2024 Obesity, Class I, BMI 30-34.9 [E66.811] 12/25/2024 Macromastia [N62] 03/20/2025 Post-operative state [Z98.890] 05/09/2025 Encounter Status:Closed by JACQUELINE SALAS on 05/23/25 [facility] CNOVon 05-13-2025 CNOV Office Visit (PLHWBA ) CINDY ALANIS ([id number]) 1985 F Date Time Provider Department 05/13/25 4:00 PM [facility] During your visit today, we recorded the following information about you: Weight Height 113.9 kg 1.854 m Sarah Jacome MD 05/19/2025 1:33 PM Signed S: Denies f/c. O: Gen alert, non toxic appearing A/P 39 year old female s/p reduction/att with left necrosis Plan: AG nitrate applied Continue dressing changes Fu 2 weeks The patient is seen and examined by Dr. Jacome and the following reflects his/her service. Scribed by Ashli Hooper MA I agree with the Chief Complaint, ROS, and Past Histories independently gathered by the clinical credit support specialist and the remaining scribed note accurately describes my personal service to the patient. Allergies As of Date: 05/13/2025 Noted Allergy Reaction DIHYDROAMINOPRYIDINE ANTIBIOTICS 07/18/2022 2 - Rash 4 - Hives 6 - Diarrhea 9 - Itching HYDROCODONE 07/18/2022 2 - Rash 4 - Hives WELLBUTRIN (BUPROPION) 07/20/2023 5 - Intolerance Comments: Suicidal thoughts ERYTHROMYCIN 07/24/2024 2 - Rash 6 - Diarrhea 9 - Itching OXYCODONE-ACETAMINOPHEN 07/18/2022 2 - Rash 6 - Diarrhea 11 - Vomiting SULFA (SULFONAMIDE ANTIBIOTICS) 07/18/2022 2 - Rash 6 - Diarrhea SULFAMETHOXAZOLE-TRIMET HOPRIM 07/18/2022 2 - Rash 6 - Diarrhea 9 - Itching TRULICITY (DULAGLUTIDE) 07/24/2024 2 - Rash 14 - Other: See Comments Comments: KNOTS UNDER SKIN CYMBALTA (DULOXETINE) 03/20/2025 2 - Rash Comments: Lethargic AZITHROMYCIN 01/15/2024 6 - Diarrhea Date Reviewed: 05/13/2025 Reviewed by: Miguel Dasilva MA - Fully Assessed Reason for Visit: Post Op [174] Primary Visit Diagnosis:Post-operativ e state [Z98.890] Prescriptions as of 05/19/2025 - triamcinolone (KENALOG) 0.025 % ointment Apply to affected areas two times a day as needed. - metoprolol succinate ER (TOPROL XL) 100 mg Take 1 tablet by mouth daily at bedtime. - tirzepatide (MOUNJARO) 5 mg/0.5 mL pen injector Inject 5 mg subcutaneously one time a week. - amitriptyline (ELAVIL) 25 mg tablet Take 1 tablet by mouth daily at bedtime. - metFORMIN (GLUCOPHAGE) 500 mg tablet take 1 tablet by mouth twice a day Meds Comments as of 11/11/2022: 76 Problem List As Of Date 05/13/2025 Noted Resolved Uncontrolled type 2 diabetes mellitus with hype*01/10/2023 10/13/2023 Primary hypertension [I10] 01/10/2023 Vitamin D deficiency [E55.9] 01/10/2023 Dietary counseling and surveillance [Z71.3] 01/10/2023 Body mass index 40.0-44.9, adult (HCC) [Z68.41] 01/10/2023 07/20/2023 Class 3 severe obesity with serious comorbidity*01/10/2023 07/20/2023 Obesity, Class II, BMI 35-39.9 [E66.812] 07/20/2023 Controlled type 2 diabetes mellitus without com*10/13/2023 Preoperative examination [Z01.818] 07/15/2024 Obesity, Class I, BMI 30-34.9 [E66.811] 12/25/2024 Macromastia [N62] 03/20/2025 Post-operative state [Z98.890] 05/09/2025 Level of Service: POSTOP FOLLOW UP VISIT RELATED TO ORIGINAL PX [[id number]] Encounter Status:Closed by SARAH JACOME on 05/19/25 [facility] CNOVon 05-09-2025 CNOV Office Visit (PLHWBA ) CINDY ALANIS ([id number]) 1985 F Date Time Provider Department 05/09/25 2:00 PM NURSE OLYA AG [facility] PLHWBA During your visit today, we recorded the following information about you: Allergies As of Date: 05/09/2025 Noted Allergy Reaction DIHYDROAMINOPRYIDINE ANTIBIOTICS 07/18/2022 2 - Rash 4 - Hives 6 - Diarrhea 9 - Itching HYDROCODONE 07/18/2022 2 - Rash 4 - Hives WELLBUTRIN (BUPROPION) 07/20/2023 5 - Intolerance Comments: Suicidal thoughts ERYTHROMYCIN 07/24/2024 2 - Rash 6 - Diarrhea 9 - Itching OXYCODONE-ACETAMINOPHEN 07/18/2022 2 - Rash 6 - Diarrhea 11 - Vomiting SULFA (SULFONAMIDE ANTIBIOTICS) 07/18/2022 2 - Rash 6 - Diarrhea SULFAMETHOXAZOLE-TRIMET HOPRIM 07/18/2022 2 - Rash 6 - Diarrhea 9 - Itching TRULICITY (DULAGLUTIDE) 07/24/2024 2 - Rash 14 - Other: See Comments Comments: KNOTS UNDER SKIN CYMBALTA (DULOXETINE) 03/20/2025 2 - Rash Comments: Lethargic AZITHROMYCIN 01/15/2024 6 - Diarrhea Date Reviewed: 05/09/2025 Reviewed by: Miguel Dasilva MA - Fully Assessed Reason for Visit: Suture Removal [105] Primary Visit Diagnosis:Post-operativ e state [Z98.890] Prescriptions as of 05/09/2025 - clindamycin (CLEOCIN) 300 mg capsule Take 1 capsule by mouth three times a day for 5 days. - triamcinolone (KENALOG) 0.025 % ointment Apply to affected areas two times a day as needed. - metoprolol succinate ER (TOPROL XL) 100 mg Take 1 tablet by mouth daily at bedtime. - tirzepatide (MOUNJARO) 5 mg/0.5 mL pen injector Inject 5 mg subcutaneously one time a week. - amitriptyline (ELAVIL) 25 mg tablet Take 1 tablet by mouth daily at bedtime. - metFORMIN (GLUCOPHAGE) 500 mg tablet take 1 tablet by mouth twice a day Meds Comments as of 11/11/2022: 76 Problem List As Of Date 05/09/2025 Noted Resolved Uncontrolled type 2 diabetes mellitus with hype*01/10/2023 10/13/2023 Primary hypertension [I10] 01/10/2023 Vitamin D deficiency [E55.9] 01/10/2023 Dietary counseling and surveillance [Z71.3] 01/10/2023 Body mass index 40.0-44.9, adult (HCC) [Z68.41] 01/10/2023 07/20/2023 Class 3 severe obesity with serious comorbidity*01/10/2023 07/20/2023 Obesity, Class II, BMI 35-39.9 [E66.812] 07/20/2023 Controlled type 2 diabetes mellitus without com*10/13/2023 Preoperative examination [Z01.818] 07/15/2024 Obesity, Class I, BMI 30-34.9 [E66.811] 12/25/2024 Macromastia [N62] 03/20/2025 Post-operative state [Z98.890] 05/09/2025 Encounter Status:Closed by MIGUEL DASILVA on 05/09/25 [facility] HEENAOon 05-06-2025 CNCO Letter Text [facility] CNOVon 05-06-2025 CNOV Office Visit (PLHWBA ) CINDY ALANIS Denisse ([id number]) 1985 F Date Time Provider Department 05/06/25 10:15 AM SARAH JACOME PLHWBA During your visit today, we recorded the following information about you: Sarah Jacome MD 05/11/2025 1:16 PM Signed S: Denies f/c. Some drainage - overall improved. O: Gen alert, non toxic appearing Left breast s/p closure with small opening centrally, no e/o infection, some sutres removed/silver nitrate applie All other incisions c/d/I, overall good early result A/P 39 year old female s/p reduction/att with left necrosis - no s/p delayed primary closure. Continue dressing changes as needed. Fu Monday for suture removal. Silver nitrate applied today. Allergies As of Date: 05/06/2025 Noted Allergy Reaction DIHYDROAMINOPRYIDINE ANTIBIOTICS 07/18/2022 2 - Rash 4 - Hives 6 - Diarrhea 9 - Itching HYDROCODONE 07/18/2022 2 - Rash 4 - Hives WELLBUTRIN (BUPROPION) 07/20/2023 5 - Intolerance Comments: Suicidal thoughts ERYTHROMYCIN 07/24/2024 2 - Rash 6 - Diarrhea 9 - Itching OXYCODONE-ACETAMINOPHEN 07/18/2022 2 - Rash 6 - Diarrhea 11 - Vomiting SULFA (SULFONAMIDE ANTIBIOTICS) 07/18/2022 2 - Rash 6 - Diarrhea SULFAMETHOXAZOLE-TRIMET HOPRIM 07/18/2022 2 - Rash 6 - Diarrhea 9 - Itching TRULICITY (DULAGLUTIDE) 07/24/2024 2 - Rash 14 - Other: See Comments Comments: KNOTS UNDER SKIN CYMBALTA (DULOXETINE) 03/20/2025 2 - Rash Comments: Lethargic AZITHROMYCIN 01/15/2024 6 - Diarrhea Date Reviewed: 05/06/2025 Reviewed by: Ashli Hooper MA - Fully Assessed Reason for Visit: Post Op [174] Primary Visit Diagnosis:Post-operativ e state [Z98.890] Prescriptions as of 05/11/2025 - triamcinolone (KENALOG) 0.025 % ointment Apply to affected areas two times a day as needed. - metoprolol succinate ER (TOPROL XL) 100 mg Take 1 tablet by mouth daily at bedtime. - tirzepatide (MOUNJARO) 5 mg/0.5 mL pen injector Inject 5 mg subcutaneously one time a week. - amitriptyline (ELAVIL) 25 mg tablet Take 1 tablet by mouth daily at bedtime. - metFORMIN (GLUCOPHAGE) 500 mg tablet take 1 tablet by mouth twice a day Meds Comments as of 11/11/2022: 76 Problem List As Of Date 05/06/2025 Noted Resolved Uncontrolled type 2 diabetes mellitus with hype*01/10/2023 10/13/2023 Primary hypertension [I10] 01/10/2023 Vitamin D deficiency [E55.9] 01/10/2023 Dietary counseling and surveillance [Z71.3] 01/10/2023 Body mass index 40.0-44.9, adult (HCC) [Z68.41] 01/10/2023 07/20/2023 Class 3 severe obesity with serious comorbidity*01/10/2023 07/20/2023 Obesity, Class II, BMI 35-39.9 [E66.812] 07/20/2023 Controlled type 2 diabetes mellitus without com*10/13/2023 Preoperative examination [Z01.818] 07/15/2024 Obesity, Class I, BMI 30-34.9 [E66.811] 12/25/2024 Macromastia [N62] 03/20/2025 Level of Service: POSTOP FOLLOW UP VISIT RELATED TO ORIGINAL PX [[id number]] Encounter Status:Closed by SARAH JACOME on 05/11/25 Normal [facility] HbA1c (Bld)on 04-18-2025 Average glucose Estimated from glycated hemoglobin (Bld) [Mass/Vol] 114 mg/dL Normal [facility] Comment on above: Order Comment: Speci men Type: BLOOD SPECIMEN Ordering Facility: [facility] Address: [address] [place] [address] Result Comment: eAG: (Estimated average glucose) is a calculated value from HgbA1c and is customer retention representative of the average blood glucose level in the last 2-3 month period. Performed By: #### 1 989-3 #### [facility] CLIA [id number] [address] [place] [address] [place] [facility] HbA1c (Bld) [Mass fraction] 5.6 % Normal 4.3-5.6 [facility] Comment on above: Order Comment: Speci men Type: BLOOD SPECIMEN Ordering Facility: [facility] Address: [address] [place] [address] Result Comment: [place] Diabetes Association guidelines indicate that patients with HgbA1c in the range 5.7-6.4% are at increased risk for development of diabetes, and intervention by lifestyle modification may be beneficial. HgbA1c greater or equal to 6.5% is considered diagnostic of diabetes. Performed By: #### 1 989-3 #### [facility] CLIA [id number] [address] [place] [address] OF [facility] CNOVon 04-15-2025 CNOV Office Visit (PLWBA ) CINDY ALANIS ([id number]) 1985 F Date Time Provider Department 04/15/25 1:45 PM SARAH JACOME PLWBA During your visit today, we recorded the following information about you: Sarah Jacome MD 04/16/2025 12:14 PM Signed S: Notes necrosis left inferior T junction breast. Denies f/c. Some drainage. O: Gen alert, non toxic appearing Left breast with 4x2cm area of dehiscence/necrosis All other incisions c/d/I, overall good early result A/P 39 year old female s/p reduction/att with left necrosis - Reassured May shower No strenuous lifting until advised WTD NS BID Fu as scheduled Sarah Jacome MD 04/17/2025 4:14 PM Signed Addended by: SARAH JACOME on: 04/17/2025 04:14 PM Modules accepted: Orders Allergies As of Date: 04/15/2025 Noted Allergy Reaction DIHYDROAMINOPRYIDINE ANTIBIOTICS 07/18/2022 2 - Rash 4 - Hives 6 - Diarrhea 9 - Itching HYDROCODONE 07/18/2022 2 - Rash 4 - Hives WELLBUTRIN (BUPROPION) 07/20/2023 5 - Intolerance Comments: Suicidal thoughts ERYTHROMYCIN 07/24/2024 2 - Rash 6 - Diarrhea 9 - Itching OXYCODONE-ACETAMINOPHEN 07/18/2022 2 - Rash 6 - Diarrhea 11 - Vomiting SULFA (SULFONAMIDE ANTIBIOTICS) 07/18/2022 2 - Rash 6 - Diarrhea SULFAMETHOXAZOLE-TRIMET HOPRIM 07/18/2022 2 - Rash 6 - Diarrhea 9 - Itching TRULICITY (DULAGLUTIDE) 07/24/2024 2 - Rash 14 - Other: See Comments Comments: KNOTS UNDER SKIN CYMBALTA (DULOXETINE) 03/20/2025 2 - Rash Comments: Lethargic AZITHROMYCIN 01/15/2024 6 - Diarrhea Date Reviewed: 04/15/2025 Reviewed by: Ashli Hooper MA - Fully Assessed Reason for Visit: Post Op [174] Primary Visit Diagnosis:Post-operativ e state [Z98.890] Order(s):oxyCODONE IR (ROXICODONE) 5 mg immediate release tabletTake 1 tablet by mouth every 6 hours as needed for up to 7 days.Disp: 28 tabletRfl: 0 Prescriptions as of 04/17/2025 - oxyCODONE IR (ROXICODONE) 5 mg immediate release tablet Take 1 tablet by mouth every 6 hours as needed for up to 7 days. - triamcinolone (KENALOG) 0.025 % ointment Apply to affected areas two times a day as needed. - metoprolol succinate ER (TOPROL XL) 100 mg Take 1 tablet by mouth daily at bedtime. - tirzepatide (MOUNJARO) 5 mg/0.5 mL pen injector Inject 5 mg subcutaneously one time a week. - amitriptyline (ELAVIL) 25 mg tablet Take 1 tablet by mouth daily at bedtime. - metFORMIN (GLUCOPHAGE) 500 mg tablet take 1 tablet by mouth twice a day Meds Comments as of 11/11/2022: 76 Problem List As Of Date 04/15/2025 Noted Resolved Uncontrolled type 2 diabetes mellitus with hype*01/10/2023 10/13/2023 Primary hypertension [I10] 01/10/2023 Vitamin D deficiency [E55.9] 01/10/2023 Dietary counseling and surveillance [Z71.3] 01/10/2023 Body mass index 40.0-44.9, adult (HCC) [Z68.41] 01/10/2023 07/20/2023 Class 3 severe obesity with serious comorbidity*01/10/2023 07/20/2023 Obesity, Class II, BMI 35-39.9 [E66.812] 07/20/2023 Controlled type 2 diabetes mellitus without com*10/13/2023 Preoperative examination [Z01.818] 07/15/2024 Obesity, Class I, BMI 30-34.9 [E66.811] 12/25/2024 Macromastia [N62] 03/20/2025 Prescriptions ordered this encounter Disp Refills Start End OXYCODONE 5 MG TABLET 28 t* 0 04/17/2025 04/24/2025 Route: ORAL Sig: Take 1 tablet by mouth every 6 hours as needed for up to 7 days. Level of Service: POSTOP FOLLOW UP VISIT RELATED TO ORIGINAL PX [[id number]] Encounter Status:Closed by SARAH JACOME on 04/16/25 [facility] Sung 04-10-2025 CNOV Office Visit (PLHWBA ) CINDY ALANIS ([id number]) 1985 F Date Time Provider Department 04/10/25 8:45 AM [facility] your visit today, we recorded the following information about you: Weight Height 113.9 kg 1.854 m Bennie Pichardo APRN.AMADO 04/10/2025 12:01 PM Signed Plastic Surgery Postop Note SURGERY/PROCEDURE(S): 03/27/25 bilateral breast reduction Physical Exam LMP 10/16/2018 pt presents today with increased tenderness, small opening of incision--alisa reina fell on her over the weekend General Appearance: Well appearing, alert, in no acute distress, well-hydrated, well nourished.. Skin: Skin color, texture, turgor normal, no suspicious rashes or lesions. Neurologic: Gait normal. Reflexes normal and symmetric. Sensation grossly intact.. INCISION: Dry and intact, without redness--stitch left from drain removal--removed; continues to have itchy diffuse rash ASSESSMENT/PLAN: 1. Post-operative state - ICD9: V45.89, ICD10: Z98.890 -betadine paint BID to L IMF -will prescribe another round of steroids and stronger steroid cream -Continue supportive garment -Continue activity restrictions until positive day 21 -Follow-up in clinic for next post op visit Bennie Pichardo APRN.[employer] Allergies As of Date: 04/10/2025 Noted Allergy Reaction DIHYDROAMINOPRYIDINE ANTIBIOTICS 07/18/2022 2 - Rash 4 - Hives 6 - Diarrhea 9 - Itching HYDROCODONE 07/18/2022 2 - Rash 4 - Hives WELLBUTRIN (BUPROPION) 07/20/2023 5 - Intolerance Comments: Suicidal thoughts ERYTHROMYCIN 07/24/2024 2 - Rash 6 - Diarrhea 9 - Itching OXYCODONE-ACETAMINOPHEN 07/18/2022 2 - Rash 6 - Diarrhea 11 - Vomiting SULFA (SULFONAMIDE ANTIBIOTICS) 07/18/2022 2 - Rash 6 - Diarrhea SULFAMETHOXAZOLE-TRIMET HOPRIM 07/18/2022 2 - Rash 6 - Diarrhea 9 - Itching TRULICITY (DULAGLUTIDE) 07/24/2024 2 - Rash 14 - Other: See Comments Comments: KNOTS UNDER SKIN CYMBALTA (DULOXETINE) 03/20/2025 2 - Rash Comments: Lethargic AZITHROMYCIN 01/15/2024 6 - Diarrhea Date Reviewed: 04/10/2025 Reviewed by: Miguel Dasilva MA - Fully Assessed Reason for Visit: Post Op [174] Primary Visit Diagnosis:Post-operativ e state [Z98.890] Order(s):methylPREDNISo lone (MEDROL, MADDI,) 4 mg Dose-PackAs instructed per packageDisp: 21 tabletRfl: 0 triamcinolone (KENALOG) 0.025 % ointmentApply to affected areas two times a day as needed.Disp: 80 gRfl: 0 Prescriptions as of 04/10/2025 - methylPREDNISolone (MEDROL, MADDI,) 4 mg Dose-Pack As instructed per package - triamcinolone (KENALOG) 0.025 % ointment Apply to affected areas two times a day as needed. - metoprolol succinate ER (TOPROL XL) 100 mg Take 1 tablet by mouth daily at bedtime. - doxycycline monohydrate (MONODOX) 100 mg capsule Take 1 capsule by mouth two times a day for 7 days. - tirzepatide (MOUNJARO) 5 mg/0.5 mL pen injector Inject 5 mg subcutaneously one time a week. - amitriptyline (ELAVIL) 25 mg tablet Take 1 tablet by mouth daily at bedtime. - metFORMIN (GLUCOPHAGE) 500 mg tablet take 1 tablet by mouth twice a day Meds Comments as of 11/11/2022: 76 Problem List As Of Date 04/10/2025 Noted Resolved Uncontrolled type 2 diabetes mellitus with hype*01/10/2023 10/13/2023 Primary hypertension [I10] 01/10/2023 Vitamin D deficiency [E55.9] 01/10/2023 Dietary counseling and surveillance [Z71.3] 01/10/2023 Body mass index 40.0-44.9, adult ([facility]) [Z68.41] 01/10/2023 07/20/2023 Class 3 severe obesity with serious comorbidity*01/10/2023 07/20/2023 Obesity, Class II, BMI 35-39.9 [E66.812] 07/20/2023 Controlled type 2 diabetes mellitus without com*10/13/2023 Preoperative examination [Z01.818] 07/15/2024 Obesity, Class I, BMI 30-34.9 [E66.811] 12/25/2024 Macromastia [N62] 03/20/2025 Prescriptions ordered this encounter Disp Refills Start End METHYLPREDNISOLONE 4 MG TABLETS IN A* 21 t* 0 04/10/2025 04/16/2025 Sig: As instructed per package TRIAMCINOLONE ACETONIDE 0.025 % TOPI* 80 g 0 04/10/2025 Sig: Apply to affected areas two times a day as needed. Medications Discontinued During This Encounter Prescriptions - hydrocortisone (CORTISONE, HYDROCORTISONE,) 1 % lotion (Discontinued) Apply to affected area two times a day. - methylPREDNISolone (MEDROL, MADDI,) 4 mg Dose-Pack (Discontinued) As instructed per package Encounter Status:Closed by BENNIE PICHARDO on 04/10/25 [facility] CNOVon 04-07-2025 CN Office Visit ([facility]BA ) CINDY ALANIS ([id number]) 1985 F Date Time Provider Department 04/07/25 9:[address] [facility] During your visit today, we recorded the following information about you: Bennie Pichardo APRN.[facility] 04/07/2025 11:56 AM Signed Plastic Surgery Postop Note SURGERY/PROCEDURE(S): 03/27/25 bilateral breast reduction Physical Exam LMP 10/16/2018 pt presents today with increased tenderness, small opening of incision--alisa reina fell on her over the weekend General Appearance: Well appearing, alert, in no acute distress, well-hydrated, well nourished.. Skin: Skin color, texture, turgor normal, no suspicious rashes or lesions. Neurologic: Gait normal. Reflexes normal and symmetric. Sensation grossly intact.. INCISION: Dry and intact, without redness--improved from time of injury; t junction of left breast had split but now eschar---betadine applied; rash improving ASSESSMENT/PLAN: 1. 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 Allergies As of Date: 04/07/2025 Noted Allergy Reaction DIHYDROAMINOPRYIDINE ANTIBIOTICS 07/18/2022 2 - Rash 4 - Hives 6 - Diarrhea 9 - Itching HYDROCODONE 07/18/2022 2 - Rash 4 - Hives WELLBUTRIN (BUPROPION) 07/20/2023 5 - Intolerance Comments: Suicidal thoughts ERYTHROMYCIN 07/24/2024 2 - Rash 6 - Diarrhea 9 - Itching OXYCODONE-ACETAMINOPHEN 07/18/2022 2 - Rash 6 - Diarrhea 11 - Vomiting SULFA (SULFONAMIDE ANTIBIOTICS) 07/18/2022 2 - Rash 6 - Diarrhea SULFAMETHOXAZOLE-TRIMET HOPRIM 07/18/2022 2 - Rash 6 - Diarrhea 9 - Itching TRULICITY (DULAGLUTIDE) 07/24/2024 2 - Rash 14 - Other: See Comments Comments: KNOTS UNDER SKIN CYMBALTA (DULOXETINE) 03/20/2025 2 - Rash Comments: Lethargic AZITHROMYCIN 01/15/2024 6 - Diarrhea Date Reviewed: 04/07/2025 Reviewed by: Ashli Hooper MA - Fully Assessed Reason for Visit: Post Op [174] Primary Visit Diagnosis:Post-operativ e state [Z98.890] Prescriptions as of 04/07/2025 - metoprolol succinate ER (TOPROL XL) 100 mg Take 1 tablet by mouth daily at bedtime. - methylPREDNISolone (MEDROL, MADDI,) 4 mg Dose-Pack As instructed per package - hydrocortisone (CORTISONE, HYDROCORTISONE,) 1 % lotion Apply to affected area two times a day. - doxycycline monohydrate (MONODOX) 100 mg capsule Take 1 capsule by mouth two times a day for 7 days. - tirzepatide (MOUNJARO) 5 mg/0.5 mL pen injector Inject 5 mg subcutaneously one time a week. - amitriptyline (ELAVIL) 25 mg tablet Take 1 tablet by mouth daily at bedtime. - metFORMIN (GLUCOPHAGE) 500 mg tablet take 1 tablet by mouth twice a day Meds Comments as of 11/11/2022: 76 Problem List As Of Date 04/07/2025 Noted Resolved Uncontrolled type 2 diabetes mellitus with hype*01/10/2023 10/13/2023 Primary hypertension [I10] 01/10/2023 Vitamin D deficiency [E55.9] 01/10/2023 Dietary counseling and surveillance [Z71.3] 01/10/2023 Body mass index 40.0-44.9, adult (HCC) [Z68.41] 01/10/2023 07/20/2023 Class 3 severe obesity with serious comorbidity*01/10/2023 07/20/2023 Obesity, Class II, BMI 35-39.9 [E66.812] 07/20/2023 Controlled type 2 diabetes mellitus without com*10/13/2023 Preoperative examination [Z01.818] 07/15/2024 Obesity, Class I, BMI 30-34.9 [E66.811] 12/25/2024 Macromastia [N62] 03/20/2025 Encounter Status:Closed by [facility]ARDO on 04/07/[facility] CINDY ALANIS ([id number]) 1985 F Date Time Provider Department 04/02/25 9:[address] [facility] During your visit today, we recorded the following information about you: Bennie Pichardo APRN.[employer] SALES DIRECTOR 04/02/2025 10:52 AM Signed Plastic Surgery Postop Note SURGERY/PROCEDURE(S): 03/27/25 bilateral breast reduction Physical Exam LMP 10/16/2018 General Appearance: Well appearing, alert, in no acute distress, well-hydrated, well nourished.. Skin: Skin color, texture, turgor normal, no suspicious rashes or lesions. Neurologic: Gait normal. Reflexes normal and symmetric. Sensation grossly intact.. INCISION: Dry and intact, without redness; drains <5cc/day--removed, bacitracin and bandaid placed; surgical tape removed; all areas cleansed and steri-strips replaced ASSESSMENT/PLAN: 1. Post-operative state - ICD9: V45.89, ICD10: Z98.890 -Steri-Strips removed and replaced -Continue supportive garment -Continue activity restrictions until positive day 21 -Follow-up in clinic for next post op visit Bennie Pichardo APRN.[employer] SALES DIRECTOR Allergies As of Date: 04/02/2025 Noted Allergy Reaction DIHYDROAMINOPRYIDINE ANTIBIOTICS 07/18/2022 2 - Rash 4 - Hives 6 - Diarrhea 9 - Itching HYDROCODONE 07/18/2022 2 - Rash 4 - Hives WELLBUTRIN (BUPROPION) 07/20/2023 5 - Intolerance Comments: Suicidal thoughts ERYTHROMYCIN 07/24/2024 2 - Rash 6 - Diarrhea 9 - Itching OXYCODONE-ACETAMINOPHEN 07/18/2022 2 - Rash 6 - Diarrhea 11 - Vomiting SULFA (SULFONAMIDE ANTIBIOTICS) 07/18/2022 2 - Rash 6 - Diarrhea SULFAMETHOXAZOLE-TRIMET HOPRIM 07/18/2022 2 - Rash 6 - Diarrhea 9 - Itching TRULICITY (DULAGLUTIDE) 07/24/2024 2 - Rash 14 - Other: See Comments Comments: KNOTS UNDER SKIN CYMBALTA (DULOXETINE) 03/20/2025 2 - Rash Comments: Lethargic AZITHROMYCIN 01/15/2024 6 - Diarrhea Date Reviewed: 04/02/2025 Reviewed by: Ashli Hooper MA - Fully Assessed Reason for Visit: Post Op [174] Primary Visit Diagnosis:Post-operativ e state [Z98.890] Prescriptions as of 04/02/2025 - tirzepatide (MOUNJARO) 5 mg/0.5 mL pen injector Inject 5 mg subcutaneously one time a week. - oxyCODONE IR (ROXICODONE) 10 mg tab Take 1 tablet by mouth every 6 hours as needed for up to 7 days. - amitriptyline (ELAVIL) 25 mg tablet Take 1 tablet by mouth daily at bedtime. - metoprolol succinate ER (TOPROL XL) 100 mg Take 1 tablet by mouth daily at bedtime. - metFORMIN (GLUCOPHAGE) 500 mg tablet take 1 tablet by mouth twice a day Meds Comments as of 11/11/2022: 76 Problem List As Of Date 04/02/2025 Noted Resolved Uncontrolled type 2 diabetes mellitus with hype*01/10/2023 10/13/2023 Primary hypertension [I10] 01/10/2023 Vitamin D deficiency [E55.9] 01/10/2023 Dietary counseling and surveillance [Z71.3] 01/10/2023 Body mass index 40.0-44.9, adult (HCC) [Z68.41] 01/10/2023 07/20/2023 Class 3 severe obesity with serious comorbidity*01/10/2023 07/20/2023 Obesity, Class II, BMI 35-39.9 [E66.812] 07/20/2023 Controlled type 2 diabetes mellitus without com*10/13/2023 Preoperative examination [Z01.818] 07/15/2024 Obesity, Class I, BMI 30-34.9 [E66.811] 12/25/2024 Macromastia [N62] 03/20/2025 Encounter Status:Closed by BENNIE PICHARDO on 04/02/25 [facility] ANES POSTPROC EVALon 025 ANES POSTPROC EVAL HNO ID: [id number] Author: LEODAN JOSEPH MD Service: Anesthesiology Author Type: Anesthesiologist Type: Anesthesia Postprocedure Evaluation Filed: 03/28/2025 14:28 Note Text: POST ANESTHESIA EVALUATION NOTE : 1985 Procedure Summary Date: 03/27/25 Room / Location: [facility] OR [address] [place] [address] OR Anesthesia Start: 808 Anesthesia Stop: 132 Procedure: REDUCTION BREAST BILATERAL (Bilateral: Breast) Diagnosis: Post-operative state (Post-operative state [Z98.890]) Surgeons: Sarah Jacome MD Responsible Provider: Leodan Joseph MD Anesthesia Type: general ASA Status: 3 Anesthesia Type: general Last Vitals Vitals Value Taken Time BP 120/75 03/27/25 1615 Temp 36 ?C (96.8 ?F) 03/27/25 1515 HR SpO2 89 03/27/25 1615 Resp 18 03/27/25 1615 SpO2 98 % 03/27/25 1615 Post Anesthesia Patient Status Patient Evaluation: bedside. Anticipated Disposition: phase 2 then home. Neurological Status: aware and responsive. Pulmonary Status: breathing comfortably on room air Airway Control: returned to baseline unsupported. Cardiovascular Status: stable. Pain Management: clinically adequate - multimodal analgesia pain management approach Postoperative Hydration: acceptable. Intraoperative Events: no significant anesthesia events Post Operative Nausea/Vomiting Status: no significant post operative nausea or vomiting Recommendation: continue current plan of care. Anesthesia Observations No Documentation SIGNATURE: Leodan Joseph MD PATIENT NAME: Cindy Alanis DATE: March 28, 2025 TIME: 2:27 PM CSN: [id number] [facility] ANES PRE-OPon 03-27-2025 ANES PRE-OP HNO ID: [id number] Author: LEODAN JOSEPH MD Service: Anesthesiology Author Type: Anesthesiologist Type: Anesthesia Preprocedure Evaluation Filed: 03/27/2025 08:53 Note Text: ANESTHESIOLOGY DAY OF SURGERY NOTE : 1985 Procedure Information Anesthesia Start Date/Time: 03/27/25 0809 Procedure: REDUCTION BREAST BILATERAL (Bilateral: Breast) Location: [facility] OR / [facility] OR Surgeons: Sarah Jacome MD Estimated body mass index is 33.12 kg/m? as calculated from the following: Height as of 03/20/25: 185.4 cm (6' 1). Weight as of 03/20/25: 113.9 kg (251 lb). Most recent hematocrit and potassium results: Hematocrit 38.4 08/23/2024 Potassium 4.3 02/17/2025 Relevant Problems CARDIO (+) Primary hypertension ENDO (+) Controlled type 2 diabetes mellitus without complication, without long-term current use of insulin (HCC) Terzepitide held for 3 weeks I - PHYSICAL EVALUATION AIRWAY Patient intubated: No. Tracheostomy tube not present Mallampati: III. TM distance: >3 FB. Neck ROM: full ROM without neurological symptoms. Mouth opening: adequate. Short neck: no. Thick neck: yes DENTAL Dental findings: missing tooth/teeth. II - ANESTHESIA PLAN ASA Score: 3 Anesthetic Plan: general Airway type: ETT The patient is not a current smoker. NPO Status: adequate Beta Khang Monitoring Plan Monitoring plan: standard ASA. Post Procedure Analgesic Plan Postoperative analgesic plan: multimodal analgesia. Informed Consent Anesthetic risks, benefits, alternatives, personnel and consent discussed: yes. Patient / Responsible Green Party agrees to proceed: yes Patient / Surrogate agrees to blood products: Yes Potential Anesthesia issues that may suggest increased risk of complications or contraindication to planned procedure: none. Vitals Value Taken Time BP 129/79 03/27/25 0701 Pulse 75 03/27/25 0658 Resp Temp 36.4 ?C (97.5 ?F) 03/27/25 0658 SpO2 100 % 03/27/25 0701 Vitals shown include unfiled device data. No current facility-administered medications on file as of 03/27/2025. No current outpatient medications on file as of 03/27/2025. I have interviewed and examined the patient. I have reviewed the medical record and/or the pre-anesthesia evaluation, pertinent labs, and test results. This contains updated information obtained within 48 hours of Surgery/Procedure. SIGNATURE: Leodan Joseph MD PATIENT NAME: Cindy Batistancer DATE: March 27, 2025 TIME: 8:50 AM CSN: [id number] [facility] HISTORY PHYSICALon HISTORY PHYSICAL HNO ID: [id number] Author: MARISOL AVENDAÑO PA-C Service: Plastic Surgery Author Type: Physician Optical Model Maker And Tester Type: H&P Filed: 03/27/2025 07:52 Note Text: UPDATED HISTORY AND PHYSICAL EXAMINATION SERVICE DATE: 03/27/2025 SERVICE TIME: 7:52 AM PHYSICAL EXAM MUST BE COMPLETED ON ADMISSION The History and Physical (completed in the past 30 days) has been reviewed and the patient has been examined. The contents accurately reflect the patient's condition with the following additions or revisions since the HANDP was completed. Examination indicates no changes. LUNGS: Lungs clear to auscultation, Good diaphragmatic excursion CARDIAC: Normal S1 and S2; no rubs, murmurs, or gallops Provisional Diagnosis/Treatment Plan: Procedure(s) (LRB): REDUCTION BREAST BILATERAL (Bilateral) This HANDP can be found in the Electronic Medical Record dated 03/20/25. SIGNATURE: Marisol Avendaño PA-C PATIENT NAME: Cindy Batistancer DATE: March 27, 2025 TIME: 7:52 AM [facility] OPERATIVE NOon 03-27-2025 OPERATIVE NO HNO ID: [id number] Author: SARAH JACOME MD Service: Plastic Surgery Author Type: Physician Type: Operative Report Filed: 03/31/2025 14:44 Note Text: OPERATIVE / PROCEDURE NOTE LOG ID: [id number] SURGERY/PROCEDURE DATE: 03/27/2025 INCISION/PROCEDURE START TIME: 9:09 AM INCISION CLOSE/PROCEDURE END TIME: 1:03 PM SURGEON(S)/PROCEDURALIS T(S) AND TOBACCO CHECKOUT CLERK(S): Surgeons and Role: * Sarah Jacome MD - Primary Physician Optical Model Maker And Tester: Richy Adkins PA-C; Marisol Avendaño PA-C Booth Cleaner (Relief): David Byrd SA SURGERY/PROCEDURE(S): bilateral breast reduction ANESTHESIA: General FINDINGS: see dictation ESTIMATED BLOOD LOSS: 100 mls SPECIMENS: right/left breast tissue COMPLICATIONS: None DRAINS: Modified CLOSURE TECHNIQUE: Non-primary PRE-OP/PRE-PROCEDURE DIAGNOSIS: macromastia POST-OP/POST-PROCEDURE DIAGNOSIS: Same as Preop Patient was accompanied to the next level of care by a licensed practitioner from the surgical team pending completion of this brief op note (or operative note) SIGNATURE: Sarah Jacome MD PATIENT NAME: Cindy Alanis DATE: March 27, 2025 TIME: 2:15 PM Indications for procedure: This is a 39 year old female with symptomatic macromastia. We discussed all the risk and benefits including but not limited to infection, bleeding, damage to surrounding structures including nerves, wound breakdown, asymmetry, need for additional procedures, partial and complete nipple necrosis, need for nipple grafting, and swelling/pain. She expressed understanding wish to proceed she signed a written informed consent in the preoperative area. She was marked in the sitting position and the cuts verified. A preoperative huddle was performed prior to taking her back to the operating room. Description of procedure: Patient was brought back to the operating room and placed in the supine position. SCDs were on running and she received appropriate perioperative antibiotics. The patient was prepped and draped in the usual sterile fashion and a timeout performed with 2 patient identifiers. The patient was then placed in the sitting position and using Adson forceps and a stapler, the redundant skin and soft tissue was tailor tacked into position. An appropriate size cookie-cutter was also used to design the position of the new nipple areolar complex. Patient was then placed back into the supine position and the areas for resection marked. These incisions were incised sharply using a 15 blade to score the lines and then we proceeded with the epithelization. Dermal flaps were elevated using Bovie cautery and then sutured into place using a 2-0 PDS. Bilateral 19 Armenian drains were placed and secured using a 2-0 Prolene. Given the size discrepancy between the right and left breast, lateral tissue was used to augment the left side and tacked into place using a 2-0 PDS. Meticulous hemostasis was achieved after copious irrigation. The incisions were then temporarily closed using chester. The patient was placed back in the sitting position and overall symmetry appeared to be adequate. The position of the new nipple areolar complexes were assessed as well and marked using a 45 mm cookie cutter. The patient was then placed back in the supine position and the new nipple areolar complex incision made using a 15 blade. The nipple was delivered and temporarily inset using chester. We then proceeded with a layered closure using 3-0 PDS to reinforce the inframammary fold and a tripoint technique. Deep dermal layer was closed medially and laterally using a 3-0 Monocryl strata fix. The inferior and vertical incisions were closed with a 4-0 Monocryl for the skin. The nipples were inset using a 3-0 Monocryl followed by a 5-0 fast for the deep dermal and skin respectively. Dressings were applied at that point the care of the patient returned back to anesthesia. She would emerged from anesthesia uneventfully be transferred to the PACU in stable condition. There were no immediate complications and I was present for the critical portions of the procedure. Marisol Avendaño, JO-ANN, assisted with the dissection, retraction, and closure under my direct supervision due to the lack of a qualified resident. [facility] Pathology biopsy report Luis (Tiss)on 03-27-2025 AP DISCLAIMER [facility] Comment on above: Order Comment: Speci men Type: TISSUE SPECIMENOrdering Facility: [facility] Address: [address] [place] [id number] Result Comment: Adrián joe Developed Test (LDT) Disclaimer: Performance characteristics of immunohistochemical, immunofluorescent, and chromogenic in-situ hybridization tests have been determined by the performing laboratory within [facility] Pathology and Laboratory Medicine Department ([facility], [facility], [facility], [facility], [facility], [facility], or [facility]) in a manner consistent with CLIA requirements. One or more of these tests may not have been cleared or approved by the FDA. [facility] is regulated under CLIA as qualified to perform high-complexity testing. These tests are used for clinical purposes. These should not be regarded as investigational or for research. Positive and negative controls stain appropriately. Performed By: #### 6 6121-5 ####[place] [facility]ITAL[facility] [id number] [address] [place] CASE REPORT [facility] Comment on above: Order Comment: Speci men Type: TISSUE SPECIMENOrdering Facility: [facility] Address: [address] [place] [address] Result Comment: Surg ica Pathology Report Case: [id number] Authorizing Provider: Sarah Jacome MD Collected: 03/27/2025 12:16 PM Ordering Location: [facility] Received: 03/27/2025 02:57 PM Pathologist: Munir Escobedo MD Specimens: A) - Breast Reduction/Revision, Right, Mammoplasty, right breast tissue B) - Breast Reduction/Revision, Left, Mammoplasty, left breast tissue Performed By: #### 6 6121-5 ####[facility] [id number] [address] [place] CLINICAL HISTORY [facility] Comment on above: Order Comment: Speci men Type: TISSUE SPECIMENOrdering Facility: [facility] Address: [address] [place] [address] Result Comment: Pre- op diagnosis: Post-operative state [Z98.890] Performed By: #### 6 6121-5 ####[facility]ORY[facility] [id number] [address] [place] FINAL DIAGNOSIS [facility] Comment on above: Order Comment: Speci men Type: TISSUE SPECIMENOrdering Facility: [facility] Address: [address] [place] [address] Result Comment: A. B reast, right, mammoplasty: - Skin and underlying subcutaneous tissue with no significant histopathologic abnormality. B. Breast, left, mammoplasty: - Skin and underlying subcutaneous tissue with no significant histopathologic abnormality. at 1142 EDT Performed By: #### 6 6121-5 ####[facility]ORY[facility] [id number] [address] FINAL PERFORMING LAB [facility] Comment on above: Order Comment: Speci men Type: TISSUE SPECIMENOrdering Facility: [facility] Address: [address] [place] [address] Result Comment: Diag nostic interpretation performed at: [facility], [address] [address] CLIA# [id number] [employer] Advisor: Jessica Logan MD Performed By: #### 6 6121-5 ####[facility] [id number] [address] GROSS DESCRIPTION [facility] Comment on above: Order Comment: Herve ospina Type: TISSUE SPECIMENOrdering Facility: [facility] Address: [address] [place] [address] Result Comment: A. B reast Reduction/Revision, Right, Mammoplasty Received in formalin labeled right breast tissue are multiple segments of breast parenchyma with attached skin weighing 263 g and measuring 18 x 12 x 3.5 cm. The skin appears alvarenga-brown and unremarkable. Sectioning reveals fatty cut surfaces with intervening fibrous tissue (5%). A lesion is not present. A customer retention representative section is submitted in 1 cassette. B. Breast Reduction/Revision, Left, Mammoplasty Received in formalin labeled left breast tissue are multiple segments of skin with minimal adherent soft tissue aggregating to 22 x 10 x 1.5 cm and weighing 142 g. Sectioning reveals fatty cut surfaces with intervening fibrous tissue (3%). A lesion is not present. Powder Press Operator sections are submitted in 1 cassette. Gross examination performed at [facility], [address] [id number] [facility] March 28, 2025 11:46 AM Performed By: #### 6 6121-5 ####[facility]ORYCLIA [id number] [place] [id number] [place] CNPRaiza 03-26-2025 CNPN Telephone (PLHWBA) CINDY ALANIS ([id number]) 1985 F Date Time Provider Department 03/26/25 [facility] visit today, we recorded the following information about you: Miguel Herrera 03/26/2025 12:17 PM Priyanka White notified of arrival time for surgery tomorrow: 03/27 Arrive at 6:00 for surgery at 8:00. Npo after midnight. Pt voices understanding. Encouraged to call with questions or problems. Allergies As of Date: 03/26/2025 Noted Allergy Reaction DIHYDROAMINOPRYIDINE ANTIBIOTICS 07/18/2022 2 - Rash 4 - Hives 6 - Diarrhea 9 - Itching HYDROCODONE 07/18/2022 2 - Rash 4 - Hives WELLBUTRIN (BUPROPION) 07/20/2023 5 - Intolerance Comments: Suicidal thoughts ERYTHROMYCIN 07/24/2024 2 - Rash 6 - Diarrhea 9 - Itching OXYCODONE-ACETAMINOPHEN 07/18/2022 2 - Rash 6 - Diarrhea 11 - Vomiting SULFA (SULFONAMIDE ANTIBIOTICS) 07/18/2022 2 - Rash 6 - Diarrhea SULFAMETHOXAZOLE-TRIMET HOPRIM 07/18/2022 2 - Rash 6 - Diarrhea 9 - Itching TRULICITY (DULAGLUTIDE) 07/24/2024 2 - Rash 14 - Other: See Comments Comments: KNOTS UNDER SKIN CYMBALTA (DULOXETINE) 03/20/2025 2 - Rash Comments: Lethargic AZITHROMYCIN 01/15/2024 6 - Diarrhea Date Reviewed: 03/20/2025 Reviewed by: Petrona Yusuf APRN.CNP - Fully Assessed Reason for Visit: Surgery Arrival [Other] Prescriptions as of 03/26/2025 - amitriptyline (ELAVIL) 25 mg tablet Take 1 tablet by mouth daily at bedtime. - tirzepatide (MOUNJARO) 15 mg/0.5 mL pen injector Inject 15 mg subcutaneously one time a week. - metoprolol succinate ER (TOPROL XL) 100 mg Take 1 tablet by mouth daily at bedtime. - metFORMIN (GLUCOPHAGE) 500 mg tablet take 1 tablet by mouth twice a day Meds Comments as of 11/11/2022: 76 Problem List As Of Date 03/26/2025 Noted Resolved Uncontrolled type 2 diabetes mellitus with hype*01/10/2023 10/13/2023 Primary hypertension [I10] 01/10/2023 Vitamin D deficiency [E55.9] 01/10/2023 Dietary counseling and surveillance [Z71.3] 01/10/2023 Body mass index 40.0-44.9, adult (HCC) [Z68.41] 01/10/2023 07/20/2023 Class 3 severe obesity with serious comorbidity*01/10/2023 07/20/2023 Obesity, Class II, BMI 35-39.9 [E66.812] 07/20/2023 Controlled type 2 diabetes mellitus without com*10/13/2023 Preoperative examination [Z01.818] 07/15/2024 Obesity, Class I, BMI 30-34.9 [E66.811] 12/25/2024 Macromastia [N62] 03/20/2025 Encounter Status:Closed by MIGUEL HERRERA on 03/26/25 [facility] HISTORY PHYSICALon HISTORY PHYSICAL HNO ID: [id number] Author: PETRONA YUSUF APRN.CNP Service: ? Author Type: Nurse Practitioner Type: H&P Filed: 03/20/2025 08:22 Note Text: [facility] HISTORY AND PHYSICAL EXAMINATION SERVICE DATE: 03/20/2025 SERVICE TIME: 8:20 AM PRIMARY CARE PHYSICIAN: José Elizabeth MD Assessment Patient has the following medical conditions which may affect dianne-operative course: Macromastia Surgery scheduled with Dr. Jacome on 03/27/2025 Preoperative examination Patient has the following medical conditions which may affect dianne-operative course addressed in assessment and plan today. Primary hypertension Controlled with metoprolol, instructed to take morning of surgery Controlled type 2 diabetes mellitus without complication, without long-term current use of insulin (HCC) Hemoglobin A1C (%) Date Value 02/17/2025 5.1 Hemoglobin A1C (POCT) (%) Date Value 07/18/2022 8.6 Metformin - Hold morning of surgery Mounjaro - Hold 1 week prior to surgery ANESTHESIA FINDINGS: Intubation History: No history of difficult intubation. No abnormal airway history Significant Anesthesia Considerations: potential postop nausea/vomiting Airway History: No history of difficult airway No abnormal airway history [place] Activity Status Index: METS: Run a short distance (8.00 METs) DASI Score: 8 Patient denies any chest pain or undue shortness of breath with the above physical activity. ARISCAT Score: Age: <=50 Preoperative SpO2: >=96% Respiratory infection in the last month: No Preoperative anemia: No Surgical incision: peripheral Duration of surgery: >3 hrs Emergency procedure: No ARISCAT Score: 23 I - PHYSICAL EVALUATION AIRWAY Patient intubated: No. DENTAL Dental findings: missing tooth/teeth and teeth intact. II - ANESTHESIA PLAN Anesthetic Plan: general Beta Khang Monitoring Plan Post Procedure Analgesic Plan Prepared for Surgery: CONSULTS: Patient does not require consults for optimization at this time Planned Anesthetic: general The Following Tests/Procedures Have Been Initiated: No orders of the defined types were placed in this encounter. REASON FOR VISIT: Cindy Alanis is a 39 year old female who is scheduled for * No surgery found * at the request of Dr. Jacome, Sarah Cleveland MD for routine HANDP. My final recommendation will be communicated back to the requesting physician by way of shared medical record or letter. The reason for this visit is to perform a comprehensive review of the patient's past medical history, assess their current health status and obtain any additional testing required based on anesthesia guidelines. We will also identify any potential anesthesia problems or contraindications to the planned procedure. Subjective The patient has the following: COVID-19 Immunization Status Upcoming Covid-19 Vaccine ( season) Postponed until 02/18/2026 02/18/2025 Postponed until 02/18/2026 by Yasmeen Herzog MD (Declined at this time) 07/18/2022 Postponed until 07/18/2023 by Yesy Fernandez DO (Declined at this time) CHIEF COMPLAINT: Post-operative state HPI: Patient is a 39 year old female here for a preoperative exam. Pt has has had a significant weight loss, 160 lbs. She has a lot of excess skin. She has been at a stable weight for the last 2 years. Pt discussed with surgeon and agrees to surgical intervention. REVIEW OF SYSTEMS: General: Negative for: unintentional weight change, malaise and fever. Neurological: Positive for: headaches. Negative for: seizures and strokes. Respiratory: Negative for: asthma, COPD, tobacco use, URI < 2 weeks and obstructive sleep apnea. Cardiovascular: Positive for: hypertension Negative for: arrhythmia, CAD, chest pain, CHF, DVT/PE and hyperlipidemia. GI: Negative for: abdominal pain, GERD, nausea and vomiting. : Negative for: dysuria, hematuria and renal failure. 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 Endocrine: Positive for: diabetes mellitus. Patient's diabetes mellitus is controlled by diet, oral agents and Mounjaro. Negative for: hypothyroidism. Hematology: Negative for: anemia, factor V Leiden, von Willebrand disease and chronic anti-coagulation/platel et meds. Oncology: No history of CA metastasis, chemo within 30 days, or radiotherapy within 90 days. No history of oncological symptoms or problems. Psych: Positive for: anxiety and depression. Musculoskeletal: Negative for joint pain or swelling, back pain or muscle pain. Skin: Negative for lesions, rash and itching. PAST MEDICAL HISTORY Diagnosis Date Anxiety Depression Diabetes mellitus (HCC)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 (mass/volume)Ordered By: Marisol Healy on 01-06-2024 Urea nitrogen [Mass/Vol] 19 mg/dL 7-18 [facility] Thin prep Papanicolaou smear with manual screeningOrdered By: Marisol Healy on 01-06-2024 Thin prep Papanicolaou smear with manual screening 3.5 g/dL 3.2-5.0 [facility] Thin prep Papanicolaou smear with manual screening 17 U/L 15-37 [facility] Thin prep Papanicolaou smear with manual screening 3 5-15 [facility] B TYPE NATRIURETIC PEPTIDEon 11-08-2023 Natriuretic peptide B (Bld) [Mass/Vol] 12 pg/mL [facility] Comment on above: Performed By: #### C OVID #### [place] [address] B-TYPE NATRIURETIC PEPTIDE ( BRAIN)on 11-08-2023 Natriuretic peptide B (Bld) [Mass/Vol] 12 pg/mL [facility] CBCon 11-08-2023 ABSOLUTE BAS 0.1 10*3/uL Normal 0.0-0.2 [facility] Comment on above: Performed By: #### A CBC, CMPF, BNP, MG, DDIMER #### Testing performed at [place] [id number] ABSOLUTE EOS 0.3 10*3/uL Normal 0.0-0.7 [facility] Comment on above: Performed By: #### A CBC, CMPF, BNP, MG, DDIMER #### Testing performed at [place] [id number] ABSOLUTE NEUTROPHIL COUNT 7.9 10*3/uL High 1.4-6.5 [facility] Comment on above: Performed By: #### A CBC, CMPF, BNP, MG, DDIMER #### Testing performed at [address] [place] [address] Basophils/100 WBC (Bld) 0.5 % Normal 0.0-2.0 [facility] Comment on above: Performed By: #### A CBC, CMPF, BNP, MG, DDIMER #### Testing performed at [address] [place] [address] DTYPE AUTO DIFF Normal [facility] Comment on above: Performed By: #### A CBC, CMPF, BNP, MG, DDIMER #### Testing performed at [address] [place] [address] Eosinophils/100 WBC (Bld) 2.3 % Normal 0.0-11.0 [facility] Comment on above: Performed By: #### A CBC, CMPF, BNP, MG, DDIMER #### Testing performed at [address] [place] [address] Lymphocytes (Bld) [#/Vol] 2.2 10*3/uL Normal 1.2-3.4 [facility] Comment on above: Performed By: #### A CBC, CMPF, BNP, MG, DDIMER #### Testing performed at [address] [place] [address] Lymphocytes/100 WBC (Bld) 20.1 % Normal 20.0-55.0 [facility] Comment on above: Performed By: #### A CBC, CMPF, BNP, MG, DDIMER #### Testing performed at [address] [place] [address] Monocytes (Bld) [#/Vol] 0.7 10*3/uL Normal 0.0-0.7 [facility] Comment on above: Performed By: #### A CBC, CMPF, BNP, MG, DDIMER #### Testing performed at [address] [place] [address] Monocytes/100 WBC (Bld) 6.2 % Normal 0.0-10.0 [facility] Comment on above: Performed By: #### A CBC, CMPF, BNP, MG, DDIMER #### Testing performed at [address] [address] Neutrophils/100 WBC (Bld) 70.9 % Normal 37.0-75.0 [facility] Comment on above: Performed By: #### A CBC, CMPF, BNP, MG, DDIMER #### Testing performed at [address] [address] Erythrocyte distribution width (RBC) [Ratio] 14.1 % Normal 11.5-14.5 [facility] Comment on above: Performed By: #### A CBC, CMPF, BNP, MG, DDIMER #### Testing performed at [address] [address] Hematocrit (Bld) [Volume fraction] 43.8 % Normal 36.0-48.0 [facility] Comment on above: Performed By: #### A CBC, CMPF, BNP, MG, DDIMER #### Testing performed at [address] [address] Hemoglobin (Bld) [Mass/Vol] 14.2 g/dL Normal 12.0-16.0 [facility] Comment on above: Performed By: #### A CBC, CMPF, BNP, MG, DDIMER #### Testing performed at [address] [address] MCH (RBC) [Entitic mass] 29.3 pg Normal 26.0-35.0 [facility] Comment on above: Performed By: #### A CBC, CMPF, BNP, MG, DDIMER #### Testing performed at [address] [address] MCHC (RBC) [Mass/Vol] 32.4 g/dL Normal 27.0-37.0 [facility] Comment on above: Performed By: #### A CBC, CMPF, BNP, MG, DDIMER #### Testing performed at [address] [address] MCV (RBC) [Entitic vol] 90.4 fL Normal 80.0-100.0 [facility] Comment on above: Performed By: #### A CBC, CMPF, BNP, MG, DDIMER #### Testing performed at [address] [address] Platelet mean volume (Bld) [Entitic vol] 7.5 fL Normal 7.4-11.0 [facility] Comment on above: Performed By: #### A CBC, CMPF, BNP, MG, DDIMER #### Testing performed at [address] [address] Platelets (Bld) [#/Vol] 298 10*3/uL Normal 130-400 [facility] Comment on above: Performed By: #### A CBC, CMPF, BNP, MG, DDIMER #### Testing performed at [address] [address] RBC (Bld) [#/Vol] 4.85 10*6/uL Normal 4.0-5.4 [facility] Comment on above: Performed By: #### A CBC, CMPF, BNP, MG, DDIMER #### Testing performed at [address] [address] WBC (Bld) [#/Vol] 11.1 10*3/uL High 3.6-11.0 [facility] Comment on above: Performed By: #### A CBC, CMPF, BNP, MG, DDIMER #### Testing performed at [address] [address] CBC, EDIF, PLATELETon 2022 ABSOLUTE BASOPHIL COUNT 0.1 10*3/uL 0.0 - 0.2 10*3/uL [facility] Basophils/100 WBC (Bld) 0.5 % 0.0 - 2.0 % [facility] Differential cell count method Nom (Bld) AUTO DIFF % [facility] Eosinophils (Bld) [#/Vol] 0.3 10*3/uL 0.0 - 0.7 10*3/uL [facility] Eosinophils/100 WBC (Bld) 2.3 % 0.0 - 11.0 % [facility] Erythrocyte distribution width (RBC) [Ratio] 14.1 % 11.5 - 14.5 % [facility] Hematocrit (Bld) [Volume fraction] 43.8 % 36.0 - 48.0 % [facility] Hemoglobin (Bld) [Mass/Vol] 14.2 g/dL [facility] Interpretation and review of laboratory results Abnormal [facility] Lymphocytes (Bld) [#/Vol] 2.2 10*3/uL 1.2 - 3.4 10*3/uL [facility] Lymphocytes/100 WBC (Bld) 20.1 % 20.0 - 55.0 % [facility] MCH (RBC) [Entitic mass] 29.3 pg 26.0 - 35.0 PG [facility] MCHC (RBC) [Mass/Vol] 32.4 g/dL [facility] MCV (RBC) [Entitic vol] 90.[address] [facility] Monocytes (Bld) [#/Vol] 0.7 10*3/uL 0.0 - 0.7 10*3/uL [facility] Monocytes/100 WBC (Bld) 6.2 % 0.0 - 10.0 % [facility] Neutrophils (Bld) [#/Vol] 7.9 10*3/uL High 1.4 - 6.5 10*3/uL [facility] Neutrophils/100 WBC (Bld) 70.9 % 37.0 - 75.0 % [facility] Platelet mean volume (Bld) [Entitic vol] 7.5 fL [facility] Platelets (Bld) [#/Vol] 298 10*3/uL 130 - 400 10*3/uL [facility] RBC (Bld) [#/Vol] 4.85 10*6/uL 4.0 - 5.4 10*6/uL [facility] WBC (Bld) [#/Vol] 11.1 10*3/uL High 3.6 - 11.0 10*3/uL [facility] CMP FASTINGon 11-08-2023 A:G RATIO 1.8 RATIO Normal [facility] Comment on above: Performed By: #### C OVID #### Testing performed at [address] [address] ALBUMIN 3.7 G/dl Normal 3.5-5.0 [facility] Comment on above: Performed By: #### C OVID #### Testing performed at [facility] [place] [facility] [address] [place] [address] ALP [Catalytic activity/Vol] 50 U/L Normal 38-126 [facility] Comment on above: Performed By: #### C OVID #### Testing performed at [address] [address] ALT [Catalytic activity/Vol] 22 U/L Normal <35 [facility] Comment on above: Performed By: #### C OVID #### Testing performed at [address] [address] AST [Catalytic activity/Vol] 23 U/L Normal 14-36 [facility] Comment on above: Performed By: #### C OVID #### Testing performed at [address] [address] Bilirubin [Mass/Vol] 0.6 mg/dL Normal 0.2-1.3 [facility] Comment on above: Performed By: #### C OVID #### Testing performed at [address] [address] Calcium [Mass/Vol] 9.1 mg/dL Normal 8.4-10.2 [facility] Comment on above: Performed By: #### C OVID #### Testing performed at [address] [address] Chloride [Moles/Vol] 111 mmol/L High 98-107 [facility] Comment on above: Result Comment: Kanika rebolledo note: Triglyceride levels of 600mg/dL or higher may positively bias chloride results by approximately 2.1 mmol Performed By: #### C OVID #### Testing performed at [address] [address] CO2 [Moles/Vol] 18 mmol/L Low 22-30 [facility] Comment on above: Performed By: #### C OVID #### Testing performed at [address] [address] Creatinine [Mass/Vol] 0.98 mg/dL Normal 0.70-1.20 [facility] Comment on above: Performed By: #### C OVID #### Testing performed at [address] [address] EST. GFR, 81 ml/min/1.73sq.m Normal [facility] Comment on above: Performed By: #### C OVID #### Testing performed at [address] [address] EST. GFR,Non 67 ml/min/1.73sq.m Normal [facility] Comment on above: Performed By: #### C OVID #### Testing performed at [address] [address] GFR Information Average GFR for 40-4 9 years old = 99. Normal [facility] Comment on above: Result Comment: Weight Recorder michael Kidney disease, GFR = <60. Kidney failure, GFR = <15. The GFR estimate is not adjusted for extreme body surface area or acute process, nor has it been validated for women or ethnic groups other than and . Performed By: #### C OVID #### Testing performed at [address] [address] Glucose [Mass/Vol] 98 mg/dL Normal 70-100 [facility] Comment on above: Result Comment: NORMAL <100 mg/dL PREDIABETES 101-126 mg/dL DIABETES 126 mg/dL or higher Performed By: #### C OVID #### Testing performed at [address] [address] Potassium [Moles/Vol] 4.4 mmol/L Normal 3.5-5.1 [facility] Comment on above: Performed By: #### C OVID #### Testing performed at [address] [address] Protein [Mass/Vol] 5.8 g/dL Low 6.3-8.2 [facility] Comment on above: Performed By: #### C OVID #### Testing performed at [address] [address] Sodium [Moles/Vol] 136 mmol/L Low 137-145 [facility] Comment on above: Performed By: #### C OVID #### Testing performed at [address] [address] Urea nitrogen [Mass/Vol] 20 mg/dL Normal 7-20 [facility] Comment on above: Performed By: #### C OVID #### Testing performed at [address] [address] COMPREHENSIVE METABOLIC PANE Ryan 11-08-2023 Albumin [Mass/Vol] 3.7 G/dl 3.5 - 5.0 G/dl [facility] Albumin/Globulin [Mass ratio] 1.8 {ratio} RATIO [facility] ALP [Catalytic activity/Vol] 50 U/L [facility] ALT [Catalytic activity/Vol] 22 U/L NINF [facility] AST [Catalytic activity/Vol] 23 U/L [facility] Bilirubin [Mass/Vol] 0.6 mg/dL [facility] Calcium [Mass/Vol] 9.1 mg/dL [facility] Chloride [Moles/Vol] 111 mmol/L High [facility] Comment on above: Please note: Triglyc eride levels of 600mg/dL or higher may positively bias chloride results by approximately 2.1 mmol CO2 [Moles/Vol] 18 mmol/L Low [facility] Creatinine [Mass/Vol] 0.98 mg/dL [facility] GFR COMMENT Average GFR for 40-4 9 years old = 99. [facility] Comment on above: Chronic Kidney disea se, GFR = <60. Kidney failure, GFR = <15. The GFR estimate is not adjusted for extreme body surface area or acute process, nor has it been validated for women or ethnic groups other than and . GFR/1.73 sq M.predicted among blacks MDRD (S/P/Bld) [Vol rate/Area] 81 mL/min/{1.73_m2} ml/min/1.73s q.m [facility] GFR/1.73 sq M.predicted among non-blacks MDRD (S/P/Bld) [Vol rate/Area] 67 mL/min/{1.73_m2} ml/min/1.73s q.m [facility] Glucose post fast [Mass/Vol] 98 mg/dL [facility] Comment on above: NORMAL <100 mg/dL PREDIABETES 101-126 mg/dL DIABETES 126 mg/dL or higher Potassium [Moles/Vol] 4.4 mmol/L [facility] Protein [Mass/Vol] 5.8 g/dL Low [facility] Sodium [Moles/Vol] 136 mmol/L Low [facility] Urea nitrogen [Mass/Vol] 20 mg/dL [facility] D DIMERon 11-08-2023 D DIMER <0.27 Normal <0.50 [facility] Comment on above: Result Comment: If r esult is greater than the cutoff value of 0.56 mg/L then the potential for PE or DVT exists. Other conditions exist which may cause a falsely elevated level. Please correlate clinically, including radiological findings and other clinical parameters. Performed By: #### C OVID #### Testing performed at [address] [address] D-DIMER,QUANTITATIVEon 11-08 Fibrin D-dimer FEU (PPP) [Mass/Vol] <0.27 NINF [facility] Comment on above: If result is greater than the cutoff value of 0.56 mg/L then the potential for PE or DVT exists. Other conditions exist which may cause a falsely elevated level. Please correlate clinically, including radiological findings and other clinical parameters. [facility] HCG ( test) Ql (U)o n 11-08-2023 [facility] HCG QUALITATIVE, URINEon HCG ( test) Ql (U) Negative NEGATIVE [facility] INFLUENZA A AND B, PCRon FLUAV and FLUBV Ag IF Nom (Unsp spec) Negative NEGATIVE [facility] FLUBV Ag IA Ql (Unsp spec) Negative NEGATIVE [facility] Comment on above: TESTING PERFORMED BY THANIA [facility] MAGNESIUMon 11-08-2023 Magnesium [Mass/Vol] 1.5 mg/dL Low 1.6-2.3 [facility] Comment on above: Performed By: #### C OVID #### Testing performed at [address] [address] Magnesium [Mass/Vol] 1.5 mg/dL Low [facility] NOVEL CORONAVIRUSon 11-08-20 23 NARRATIVE This test was perfor med using isothermal THANIA and has been approved as Emergency Use Authorization (EUA) for the qualitative detection [id number] nucleic acid. Normal [facility] Comment on above: Performed By: #### C OVID #### Testing performed at [address] [address] SARS-CoV-2 (COVID-19) RNA THANIA+probe Ql (Unsp spec) Not detected Normal NOT DETECTED [facility] Comment on above: Result Comment: Nega tive results do not preclude SARS-CoV-2 infection and should not be used as the sole basis for treatment or other patient management decisions. Optimum specimen types and timing for peak viral levels during infections caused by SARS-CoV-2 has not been determined. The possibility of a false negative result should especially be considered if the patient's recent exposures or clinical presentation suggest that SARS-CoV-2 infection is probable, and diagnostic tests for other causes of illness (e.g., other respiratory illness) are negative. Collection of a new specimen and re-testing may be necessary if the patient is critically ill or clinically deteriorating. Performed By: #### C OVID #### [place] [address] NOVEL CORONAVIRUS LAB 1 - NA SOPHARYNGEALon 11-08-2023 NARRATIVE -1 This test was perfor med using isothermal THANIA and has been approved as Emergency Use Authorization (EUA) for the qualitative detection [id number] nucleic acid. [facility] SARS-CoV-2 (COVID-19) RNA THANIA+probe Ql (Unsp spec) Not detected NOT DETECTED [facility] Comment on above: Negative results do not preclude SARS-CoV-2 infection and should not be used as the sole basis for treatment or other patient management decisions. Optimum specimen types and timing for peak viral levels during infections caused by SARS-CoV-2 has not been determined. The possibility of a false negative result should especially be considered if the patient's recent exposures or clinical presentation suggest that SARS-CoV-2 infection is probable, and diagnostic tests for other causes of illness (e.g., other respiratory illness) are negative. Collection of a new specimen and re-testing may be necessary if the patient is critically ill or clinically deteriorating. [facility] No Panel Informationon 11-08 Interpretation and review of laboratory results Abnormal [facility] RAPID FLU Aon 11-08-2023 INFLUENZA A Negative Normal NEGATIVE [facility] Comment on above: Performed By: #### R FLUAB #### Testing performed at [place] [id number] INFLUENZA B Negative Normal NEGATIVE [facility] Comment on above: Result Comment: TEST ING PERFORMED BY THANIA Performed By: #### R FLUAB #### Testing performed at [address] [address] TROPONIN I, HIGH SENSITIVITY on 11-08-2023 TROPONIN I, HIGH SENSITIVITY <2 Normal 0-12 [facility] Comment on above: Result Comment: Indeterminant: >12 to 100 pg/mL female >20 to 100 pg/mL male Indicative of myocardial injury. Serial sampling is recommended, a change of greater than or equal to 20 pg/mL is indicative of acute coronary syndrome. Performed By: #### C OVID #### Testing performed at [address] [address] TROPONIN I, HIGH SENSITIVITY <2 0 - 12 pg/mL [facility] Comment on above: Indeterminant: >12 to 100 pg/mL female >20 to 100 pg/mL male Indicative of myocardial injury. Serial sampling is recommended, a change of greater than or equal to 20 pg/mL is indicative of acute coronary syndrome. [facility] URINE HCG QUALon 11-08-2023 Beta HCG ( test) Ql (U) Negative Normal NEGATIVE [facility] Comment on above: Performed By: #### U HCGT #### Testing performed at [address] [address] XR CHEST PA 1 VIEWon 023 XR CHEST PA 1 VIEW EXAM: XR CHEST PA 1 VIEW at 1213 hours HISTORY: shortness of breath , fatigue and fever for 3 days. COMPARISON: None. TECHNIQUE: AP upright portable chest x-ray FINDINGS: The heart is not enlarged and the vasculature is not distended. No acute infiltrate, effusion or pneumothorax is identified. The osseous structures are grossly intact. IMPRESSION: No acute infiltrate or evidence of cardiac decompensation. Direct comparison with a previous study would be helpful in determining the chronicity of these findings. Normal [facility] XR Chest PA uprighton 2022 IMPRESSION: No acute infiltrate or evidence of cardiac decompensation. Direct comparison with a previous study would be helpful in determining the chronicity of these findings. RADIOLOGY EXAM: XR CHEST PA 1 VIEW at 1213 hours HISTORY: shortness of breath , fatigue and fever for 3 days. COMPARISON: None. TECHNIQUE: AP upright portable chest x-ray FINDINGS: The heart is not enlarged and the vasculature is not distended. No acute infiltrate, effusion or pneumothorax is identified. The osseous structures are grossly intact. RADIOLOGY Iam Padilla MD - 11/08/2023 EXAM: XR CHEST PA 1 VIEW at 1213 hours HISTORY: shortness of breath , fatigue and fever for 3 days. COMPARISON: None. TECHNIQUE: AP upright portable chest x-ray FINDINGS: The heart is not enlarged and the vasculature is not distended. No acute infiltrate, effusion or pneumothorax is identified. The osseous structures are grossly intact. IMPRESSION IMPRESSION: No acute infiltrate or evidence of cardiac decompensation. Direct comparison with a previous study would be helpful in determining the chronicity of these findings. [facility] Radiology Study observation (narrative) [place] XR Chest PA uprightOrdered B y: Iam Padilla on 11-08-2023 [facility] NOVEL CORONAVIRUSon 10-07-20 23 NARRATIVE This test was perfor med using isothermal THANIA and has been approved as Emergency Use Authorization (EUA) for the qualitative detection [id number] nucleic acid. Normal [facility] Comment on above: Performed By: #### C OVID #### Testing performed at [address] [address] SARS-CoV-2 (COVID-19) RNA THANIA+probe Ql (Unsp spec) Not detected Normal NOT DETECTED [facility] Comment on above: Result Comment: Nega tive results do not preclude SARS-CoV-2 infection and should not be used as the sole basis for treatment or other patient management decisions. Optimum specimen types and timing for peak viral levels during infections caused by SARS-CoV-2 has not been determined. The possibility of a false negative result should especially be considered if the patient's recent exposures or clinical presentation suggest that SARS-CoV-2 infection is probable, and diagnostic tests for other causes of illness (e.g., other respiratory illness) are negative. Collection of a new specimen and re-testing may be necessary if the patient is critically ill or clinically deteriorating. Performed By: #### C OVID #### Testing performed at [address] [address] RAPID FLU Aon 10-07-2023 INFLUENZA A Negative Normal NEGATIVE [facility] Comment on above: Performed By: #### R FLUAB #### Testing performed at [address] [place] [address] INFLUENZA B Negative Normal NEGATIVE [facility] Comment on above: Result Comment: TEST ING PERFORMED BY THANIA Performed By: #### R FLUAB #### Testing performed at [address] [address] RAPID STREP GROUP Aon 2022 S. pyogenes Ag IA Ql (Unsp spec) Negative Normal NEGATIVE [facility] Comment on above: Result Comment: STRE P CULTURE TO FOLLOW TESTING PERFORMED BY THANIA Performed By: #### R SAT #### Testing performed at [address] [place] [address] THROAT CULTUREon 10-07-2023 Throat culture SPECIMEN DESCRIPTION THROAT SWAB CULTURE USUAL OROPHARYNGEAL MANDY * Result Note: Testing performed at [place] [address] * REPORT STATUS 10/09/2023 * Result Note: FINAL * Normal [facility] Comment on above: Performed By: #### T HRC #### Testing performed at [address] [place] [address] Testing performed at [address] [address] INFLUENZA A AND B, PCRon FLUAV and FLUBV Ag IF Nom (Unsp spec) Negative NEGATIVE [facility] FLUBV Ag IA Ql (Unsp spec) Negative NEGATIVE [facility] Comment on above: TESTING PERFORMED BY THANIA [facility] NOVEL CORONAVIRUS LAB 1 - NA SOPHARYNGEALon 10-06-2023 NARRATIVE -1 This test was perfor med using isothermal THANIA and has been approved as Emergency Use Authorization (EUA) for the qualitative detection [id number] nucleic acid. [facility] SARS-CoV-2 (COVID-19) RNA THANIA+probe Ql (Unsp spec) Not detected NOT DETECTED [facility] Comment on above: Negative results do not preclude SARS-CoV-2 infection and should not be used as the sole basis for treatment or other patient management decisions. Optimum specimen types and timing for peak viral levels during infections caused by SARS-CoV-2 has not been determined. The possibility of a false negative result should especially be considered if the patient's recent exposures or clinical presentation suggest that SARS-CoV-2 infection is probable, and diagnostic tests for other causes of illness (e.g., other respiratory illness) are negative. Collection of a new specimen and re-testing may be necessary if the patient is critically ill or clinically deteriorating. [facility] RAPID STREP A ANTIGENon 09-27 S. pyogenes Ag Ql (Throat) Negative NEGATIVE [facility] Comment on above: STREP CULTURE TO FOL LOW TESTING PERFORMED BY [facility] Clinical Event Noteon 2022 Clinical Event Note Clinical Event: Clinical Event Note: Details Patient is a 38-year-old female who presents to the urgent care with right lower quadrant abdominal pain with onset 1 to 2 weeks ago. She reports that her pain is progressively worsening. She states that her pain is at its worse this morning and she has developed vomiting. She denies any fever or chills. She does have her appendix still and also her right ovary. She is tender to her right lower quadrant on examination and it is recommended that she be further evaluated in the emergency department as the urgent care does not have capabilities to completely assess her complaint. Patient is agreeable to going to the Emergency Department. Electronic Signatures: Liyah Kwok (PAC) (Signed 15-Jun-2023 10:27) Authored: Clinical Event Note Last Updated: 15-Jun-2023 10:27 by Liyah Kwok (PAC) [facility] VITAMIN D 25 HYDROXYon 01-11 25-hydroxyvitamin D3 [Mass/Vol] 25.6 ng/mL Low >=30.0 ng/mL [facility] CBC panel Auto (Bld)on 01-10 Erythrocyte distribution width (RBC) [Ratio] 12.7 % 11.5 - 15.0 % [facility] Hematocrit (Bld) [Volume fraction] 45.7 % 36.0 - 46.0 % [facility] Hemoglobin (Bld) [Mass/Vol] 14.7 g/dL 11.5 - 15.5 g/dL [facility] MCH (RBC) [Entitic mass] 29.1 pg 26.0 - 34.0 pg [facility] MCHC (RBC) [Mass/Vol] 32.2 g/dL 30.5 - 36.0 g/dL [facility] MCV (RBC) [Entitic vol] 90.5 fL 80.0 - 100.0 fL [facility] Platelet mean volume (Bld) [Entitic vol] 9.4 fL 9.0 - 12.7 fL [facility] Platelets (Bld) [#/Vol] 396 10*3/uL 150 - 400 k/uL [facility] RBC (Bld) [#/Vol] 5.05 10*6/uL 3.90 - 5.2 0 m/uL [facility] WBC (Bld) [#/Vol] 9.00 10*3/uL 3.70 - 11. 00 k/uL [facility] Comprehensive metabolic 2000 panelon 01-10-2023 Albumin [Mass/Vol] 4.2 g/dL 3.9 - 4.9 g/dL [facility] ALP [Catalytic activity/Vol] 85 U/L 34 - 123 U/L [facility] ALT With P-5'-P [Catalytic activity/Vol] 22 U/L 7 - 38 U/L [facility] Anion gap [Moles/Vol] 10 mmol/L 9 - 18 mmol/L [facility] AST With P-5'-P [Catalytic activity/Vol] 15 U/L 13 - 35 U/L [facility] Bilirubin [Mass/Vol] 0.3 mg/dL 0.2 - 1 .3 mg/dL [facility] Calcium [Mass/Vol] 9.8 mg/dL 8.5 - 10. 2 mg/dL [facility] Chloride [Moles/Vol] 101 mmol/L 97 - 10 5 mmol/L [facility] CO2 [Moles/Vol] 25 mmol/L 22 - 30 mmol/L [facility] Creatinine [Mass/Vol] 0.92 mg/dL 0.58 - 0.96 mg/dL [facility] Estimated Glomerular Filtration Rate 81 mL/min/1.73m >=60 mL/min/1.73m [facility] Glucose [Mass/Vol] 211 mg/dL High 74 - 99 mg/dL [facility] Potassium [Moles/Vol] 4.8 mmol/L 3.7 - 5.1 mmol/L [facility] Protein [Mass/Vol] 6.3 g/dL 6.3 - 8.0 g/dL [facility] Sodium [Moles/Vol] 136 mmol/L 136 - 144 mmol/L [facility] Urea nitrogen [Mass/Vol] 20 mg/dL 7 - 21 mg/dL [facility] HbA1c (Bld)on 01-10-2023 Average glucose Estimated from glycated hemoglobin (Bld) [Mass/Vol] 189 mg/dL [facility] HbA1c (Bld) [Mass fraction] 8.2 % High 4.3 - 5.6 % [facility] TSH BLDon 01-10-2023 TSH Qn 2.210 m[IU]/L 0.270 - 4.200 mIU/L [facility] VITAMIN B12 BLOODon 01-10-20 Cobalamin (Vitamin B12) [Mass/Vol] 431 pg/mL 232 - 1,245 pg/mL [facility] HEMOGLOBIN A1C (POC)on 07-18 HbA1c (Bld) [Mass fraction] 8.6 % Abnormal 4.2 - 5.6 % [facility] S. pyogenes Ag IF Ql (Throat ) S. pyogenes Ag IA Ql (Unsp spec) Streptococcus Group A [facility] Work Phone: Vital Signs Date Time Vital Sign Value Performing Clinician Faci lity 08-27-2025 15:41-0400 Body temperature 97.4 [degF] No Primary Care Physician [facility] 08-27-2025 15:41-0400 Diastolic blood pressure 88 mm[Hg] No Primary Care Physician [facility] 08-27-2025 15:41-0400 Heart rate 80 /min No Primary Care Physician [facility] 08-27-2025 15:41-0400 Respiratory rate 16 /min No Primary Care Physician [facility] 08-27-2025 15:41-0400 SaO2% (BldA) [Mass fraction] 99 % No Primary Care Physician [facility] 08-27-2025 15:41-0400 Systolic blood pressure 145 mm[Hg] No Primary Care Physician [facility] 08-27-2025 11:20-0400 Body height 180.34 cm No Primary Care Physician [facility] 08-27-2025 11:20-0400 Body mass index (BMI) [Ratio] 37.3 kg/m2 No Primary Care Physician [facility] 08-27-2025 11:20-0400 Body weight 121.19 kg No Primary Care Physician [facility] 06-10-2025 14:19-0400 Body height 185.4 cm Marisol GRAYKia Work Phone: [facility] 06-10-2025 14:19-0400 Body mass index (BMI) [Ratio] 33.12 kg/m2 Marisol Avendaño PA-C Work Phone: [facility] 06-10-2025 14:19-0400 Body weight 113.85 kg Marisol VELASQUEZ-C Work Phone: [facility] 05-13-2025 15:01-0400 Body height 185.4 cm Sarah Bello Work Phone: [facility] 05-13-2025 15:01-0400 Body mass index (BMI) [Ratio] 33.12 kg/m2 Sarah Jacome MD Work Phone: [facility] 05-13-2025 15:01-0400 Body weight 113.85 kg Sarah Jacome M Eugenia Work Phone: [facility] 04-10-2025 08:36-0400 Body height 185.4 cm Bennie Pichardo [employer] SALES DIRECTOR Work Phone: [facility] 04-10-2025 08:36-0400 Body mass index (BMI) [Ratio] 33.12 kg/m2 Ranice Verchick [employer]TER.[employer] PL[employer] SALES DIRECTOR Work Phone: [facility] 04-10-2025 08:36-0400 Body weight 113.85 kg Nirice Verchick PIPE [employer]TER.[employer] PLAN SALES DIRECTOR Work Phone: [facility] 03-03-2025 13:36-0400 Body mass index (BMI) [Ratio] 32.31 kg/m2 Marichuy Michelle MD Work Phone: [facility] 03-03-2025 13:36-0400 Body temperature 97.9 [degF] Marichuy Michelle MD Work Phone: [facility] 03-03-2025 13:36-0400 Body weight 111.1 kg Marichuy Michelle MD Work Phone: [facility] 03-03-2025 13:36-0400 Diastolic blood pressure 81 mm[Hg] Marichuy Michelle MD Work Phone: [facility] 03-03-2025 13:36-0400 Heart rate 77 /min Marichuy Michelle MD Work Phone: [facility] 03-03-2025 13:36-0400 Respiratory rate 16 /min Marichuy Michelle MD Work Phone: [facility] 03-03-2025 13:36-0400 SaO2% (BldA) [Mass fraction] 100 % Marichuy Michelle MD Work Phone: [facility] 03-03-2025 13:36-0400 Systolic blood pressure 123 mm[Hg] Marichuy Michelle MD Work Phone: [facility] 02-18-2025 14:59-0400 Body height 185.4 cm Sarah Bello Work Phone: [facility] 02-18-2025 14:59-0400 Body mass index (BMI) [Ratio] 32.32 kg/m2 Sarah Jacome MD Work Phone: [facility] 02-18-2025 14:59-0400 Body weight 111.13 kg Sarah Bello Work Phone: [facility] 02-18-2025 14:59-0400 Diastolic blood pressure 86 mm[Hg] Sarah Jacome MD Work Phone: [facility] 02-18-2025 14:59-0400 Heart rate 72 /min Sarah Bello Work Phone: [facility] 02-18-2025 14:59-0400 Systolic blood pressure 131 mm[Hg] Sarah Jacome MD Work Phone: [facility] 02-18-2025 13:19-0400 Body height 185.4 cm Yasmeen Herzog MD Work Phone: [facility] 02-18-2025 13:19-0400 Body mass index (BMI) [Ratio] 32.32 kg/m2 Yasmeen Herzog MD Work Phone: [facility] 02-18-2025 13:19-0400 Body temperature 98.1 [degF] Yasmeen Herzog MD Work Phone: [facility] 02-18-2025 13:19-0400 Body weight 111.13 kg Yasmeen Herzog MD Work Phone: [facility] 02-18-2025 13:19-0400 Diastolic blood pressure 74 mm[Hg] Yasmeen Herzog MD Work Phone: [facility] 02-18-2025 13:19-0400 Heart rate 78 /min Yasmeen Herzog MD Work Phone: [facility] 02-18-2025 13:19-0400 Respiratory rate 18 /min Yasmeen Herzog MD Work Phone: [facility] 02-18-2025 13:19-0400 SaO2% (BldA) [Mass fraction] 100 % Yasmeen Herzog MD Work Phone: [facility] 02-18-2025 13:19-0400 Systolic blood pressure 130 mm[Hg] Yasmeen Herzog MD Work Phone: [facility] 12-25-2024 10:37-0500 Body height 185.4 cm Patricia Alvarez DO Work Phone: [facility] 12-25-2024 10:37-0500 Body mass index (BMI) [Ratio] 31.66 kg/m2 Patricia Alvarez DO Work Phone: [facility] 12-25-2024 10:37-0500 Body temperature 97.81 [degF] Patricia Alvarez DO Work Phone: [facility] 12-25-2024 10:37-0500 Body weight 108.86 kg Patricia Alvarez DO Work Phone: [facility] 12-25-2024 10:37-0500 Diastolic blood pressure 89 mm[Hg] Patricia Alvarez DO Work Phone: [facility] 12-25-2024 10:37-0500 Heart rate 77 /min Patricia Alvarez DO Work Phone: [facility] 12-25-2024 10:37-0500 Respiratory rate 18 /min Patricia Alvarez DO Work Phone: [facility] 12-25-2024 10:37-0500 SaO2% (BldA) [Mass fraction] 100 % Patricia Alvarez DO Work Phone: [facility] 12-25-2024 10:37-0500 Systolic blood pressure 128 mm[Hg] Patricia Alvarez DO Work Phone: [facility] 10-31-2024 13:11-0500 Body height 185.4 cm Fela Gan MD Work Phone: [facility] 10-31-2024 13:11-0500 Body mass index (BMI) [Ratio] 33.64 kg/m2 Fela Gan MD Work Phone: [facility] 10-31-2024 13:11-0500 Body weight 115.67 kg Fela Gan MD Work Phone: [facility] 08-23-2024 12:01-0400 Body mass index (BMI) [Ratio] 34.18 kg/m2 France Dennison PIPE [employer]TER.[employer] PLAN SALES DIRECTOR Work Phone: [facility] 08-23-2024 12:01-0400 Body temperature 97.7 [degF] France Dennison PIPE [employer]TER.PARTY PLAN SALES DIRECTOR Work Phone: [facility] 08-23-2024 12:01-0400 Body weight 117.5 kg France Dennison PIPE FITTER.PARTY PLAN SALES DIRECTOR Work Phone: [facility] 08-23-2024 12:01-0400 Diastolic blood pressure 87 mm[Hg] France Dennison PIPE FITTER.PARTY PLAN SALES DIRECTOR Work Phone: [facility] 08-23-2024 12:01-0400 Heart rate 87 /min France Dennison PIPE FITTER.PARTY PLAN SALES DIRECTOR Work Phone: [facility] 08-23-2024 12:01-0400 Respiratory rate 18 /min France Dennison PIPE FITTER.PARTY PLAN SALES DIRECTOR Work Phone: [facility] 08-23-2024 12:01-0400 SaO2% (BldA) [Mass fraction] 100 % France Dennison PIPE [employer]TER.PARTY PLAN SALES DIRECTOR Work Phone: [facility] 08-23-2024 12:01-0400 Systolic blood pressure 124 mm[Hg] France Dennison PIPE [employer]TER.PARTY PLAN SALES DIRECTOR Work Phone: [facility] 08-08-2024 09:14-0400 Body height 185.4 cm Bennie Pichardo PIPE FITTER.PARTY PLAN SALES DIRECTOR Work Phone: [facility] 08-08-2024 09:14-0400 Body mass index (BMI) [Ratio] 30.87 kg/m2 Bennie Pichardo PIPE FITTER.PARTY PLAN SALES DIRECTOR Work Phone: [facility] 08-08-2024 09:14-0400 Body weight 106.14 kg Bennie Pichardo PIPE FITTER.PARTY PLAN SALES DIRECTOR Work Phone: [facility] 07-26-2024 09:20-0400 Body mass index (BMI) [Ratio] 30.87 kg/m2 Fela Gan MD Work Phone: [facility] 07-26-2024 09:20-0400 Body weight 106.14 kg Fela Gan MD Work Phone: [facility] 07-16-2024 09:14-0400 Body height 185.4 cm Pst 1 [facility] 07-16-2024 09:14-0400 Body mass index (BMI) [Ratio] 34.3 kg/m2 Pst 1 [facility] 07-16-2024 09:14-0400 Body temperature 98.6 [degF] Pst 1 [facility] 07-16-2024 09:14-0400 Body weight 117.94 kg Pst 1 [facility] 07-16-2024 09:14-0400 Diastolic blood pressure 85 mm[Hg] Pst 1 [facility] 07-16-2024 09:14-0400 Heart rate 79 /min Pst 1 [facility] 07-16-2024 09:14-0400 Respiratory rate 18 /min Pst 1 [facility] 07-16-2024 09:14-0400 SaO2% (BldA) [Mass fraction] 98 % Pst 1 [facility] 07-16-2024 09:14-0400 Systolic blood pressure 139 mm[Hg] Pst 1 [facility] 06-25-2024 09:32-0400 Body height 185.4 cm Sarah Bello Work Phone: [facility] 06-25-2024 09:32-0400 Body mass index (BMI) [Ratio] 34.96 kg/m2 Sarah Jacome MD Work Phone: [facility] 06-25-2024 09:32-0400 Body weight 120.2 kg Sarah Bello Work Phone: [facility] 05-21-2024 12:49-0400 Body height 185.4 cm Sarah Bello Work Phone: [facility] 05-21-2024 12:49-0400 Body mass index (BMI) [Ratio] 34.43 kg/m2 Sarah Jacome MD Work Phone: [facility] 05-21-2024 12:49-0400 Body weight 118.39 kg Sarah Bello Work Phone: [facility] 05-21-2024 12:49-0400 Diastolic blood pressure 89 mm[Hg] Sarah Jacome MD Work Phone: [facility] 05-21-2024 12:49-0400 Heart rate 93 /min Sarah Bello Work Phone: [facility] 05-21-2024 12:49-0400 Systolic blood pressure 138 mm[Hg] Sarah Jacome MD Work Phone: [facility] 05-10-2024 12:09-0400 Body height 180.3 cm Indira Degroot APRN.CNP Work Phone: [facility] 05-10-2024 12:09-0400 Body mass index (BMI) [Ratio] 36.34 kg/m2 Indira Degroot APRN.CNP Work Phone: [facility] 05-10-2024 12:09-0400 Body weight 118.2 kg Indira Degroot SANDRA Work Phone: [facility] 04-23-2024 13:21-0400 Body height 180.3 cm Fela Gan MD Work Phone: [facility] 04-23-2024 13:21-0400 Body mass index (BMI) [Ratio] 35.84 kg/m2 Fela Gan MD Work Phone: [facility] 04-23-2024 13:21-0400 Body weight 116.57 kg Fela Gan MD Work Phone: [facility] 04-23-2024 13:21-0400 Diastolic blood pressure 86 mm[Hg] Fela Gan MD Work Phone: [facility] 04-23-2024 13:21-0400 Heart rate 85 /min Fela Gan MD Work Phone: [facility] 04-23-2024 13:21-0400 Systolic blood pressure 133 mm[Hg] Fela Gan MD Work Phone: [facility] 04-03-2024 08:21-0400 Body mass index (BMI) [Ratio] 35.7 kg/m2 Matilde Pérezer PA-C Work Phone: [facility] 04-03-2024 08:21-0400 Body weight 116.12 kg Matilde Pérezer PA-C Work Phone: [facility] 04-03-2024 08:21-0400 Diastolic blood pressure 79 mm[Hg] Matilde Pérezer PA-C Work Phone: [facility] 04-03-2024 08:21-0400 Heart rate 89 /min Matilde Pérezer PA-C Work Phone: [facility] 04-03-2024 08:21-0400 Respiratory rate 18 /min Matilde Pérezer PA-C Work Phone: [facility] 04-03-2024 08:21-0400 SaO2% (BldA) [Mass fraction] 100 % Matilde Pérezzach PA-C Work Phone: [facility] 04-03-2024 08:21-0400 Systolic blood pressure 117 mm[Hg] Matilde Watters PA-C Work Phone: [facility] 03-21-2024 09:26-0400 Body height 180.3 cm Rajshri Neumann DO Work Phone: [facility] 03-21-2024 09:26-0400 Body mass index (BMI) [Ratio] 36.26 kg/m2 Rajshri Neumann DO Work Phone: [facility] 03-21-2024 09:26-0400 Body temperature 98.29 [degF] Rajshri Neumann DO Work Phone: [facility] 03-21-2024 09:26-0400 Body weight 117.94 kg Rajshri Neumann DO Work Phone: [facility] 03-21-2024 09:26-0400 Diastolic blood pressure 81 mm[Hg] Rajshri Neumann DO Work Phone: [facility] 03-21-2024 09:26-0400 Heart rate 80 /min Rajshri Neumann DO Work Phone: [facility] 03-21-2024 09:26-0400 SaO2% (BldA) [Mass fraction] 100 % Rajshri Neumann DO Work Phone: [facility] 03-21-2024 09:26-0400 Systolic blood pressure 122 mm[Hg] Rajshri Neumann DO Work Phone: [facility] 02-27-2024 16:18-0400 Body temperature 98.8 [degF] Hao Fernandez APRN.PARTY PLAN SALES DIRECTOR Work Phone: [facility] 02-27-2024 16:18-0400 Body weight 122.1 kg Hao Fernandez APRN.PARTY PLAN SALES DIRECTOR Work Phone: [facility] 02-27-2024 16:18-0400 Diastolic blood pressure 84 mm[Hg] Hao Jim PIPE FITTER.PARTY PLAN SALES DIRECTOR Work Phone: [facility] 02-27-2024 16:18-0400 Heart rate 84 /min Hao Fernandez PIPE FITTER.PARTY PLAN SALES DIRECTOR Work Phone: [facility] 02-27-2024 16:18-0400 Respiratory rate 18 /min Hao Fernandez PIPE FITTER.PARTY PLAN SALES DIRECTOR Work Phone: [facility] 02-27-2024 16:18-0400 SaO2% (BldA) [Mass fraction] 100 % Hao Fernandez PIPE FITTER.PARTY PLAN SALES DIRECTOR Work Phone: [facility] 02-27-2024 16:18-0400 Systolic blood pressure 142 mm[Hg] Hao Fernandez PIPE FITTER.PARTY PLAN SALES DIRECTOR Work Phone: [facility] 01-25-2024 10:30-0500 Diastolic blood pressure 91 mm[Hg] Sanjay Talbot MD Work Phone: 6(699)666-771618 [place] [address] 01-25-2024 10:30-0500 Heart rate 85 /min Sanjay Talbot MD Work Phone: 0(063)020-772118 [place] [address] 01-25-2024 10:30-0500 Respiratory rate 18 /min Sanjay Talbot MD Work Phone: 0(720)[phone] [place] [address] 01-25-2024 10:30-0500 SaO2% (BldA) [Mass fraction] 99 % Sanjay Talbot MD Work Phone: 4(611)045-862818 [place] [address] 01-25-2024 10:30-0500 Systolic blood pressure 136 mm[Hg] Sanjay Talbot MD Work Phone: 4(661)283-201918 [place] [address] 01-25-2024 08:14-0500 Body height 180.3 cm Sanjay Talbot MD Work Phone: 6(080)573-805718 [place] [address] 01-25-2024 08:14-0500 Body mass index (BMI) [Ratio] 33.33 kg/m2 Sanjay Talbot MD Work Phone: 1(274)864-153418 [place] [address] 01-25-2024 08:14-0500 Body weight 108.41 kg Sanjay Talbot MD Work Phone: [facility] 01-25-2024 08:13-0500 Body temperature 98.01 [degF] Sanjay Talbot MD Work Phone: [facility] 01-15-2024 08:30-0500 Body height 181.6 cm Angelo Hinton MD Work Phone: [facility] 01-15-2024 08:30-0500 Body weight 118.84 kg Angelo Hinton MD Work Phone: [facility] 01-15-2024 08:30-0500 Diastolic blood pressure 92 mm[Hg] Angelo Hinton MD Work Phone: [facility] 01-15-2024 08:30-0500 Heart rate 116 /min Angelo Hinton MD Work Phone: [facility] 01-15-2024 08:30-0500 Respiratory rate 18 /min Angelo Hinton MD Work Phone: [facility] 01-15-2024 08:30-0500 SaO2% (BldA) [Mass fraction] 97 % Angelo Hinton MD Work Phone: [facility] 01-15-2024 08:30-0500 Systolic blood pressure 134 mm[Hg] Angelo Hinton MD Work Phone: [facility] 01-07-2024 00:19-0500 Diastolic blood pressure 79 mm[Hg] [facility] 01-07-2024 00:19-0500 Heart rate 81 /min [facility] 01-07-2024 00:19-0500 Respiratory rate 18 /min [facility] 01-07-2024 00:19-0500 SaO2% (BldA) [Mass fraction] 97 % [facility] 01-07-2024 00:19-0500 Systolic blood pressure 135 mm[Hg] [facility] 01-06-2024 22:19-0500 Body height 180.34 cm [facility] 01-06-2024 22:19-0500 Body mass index (BMI) [Ratio] 37.3 kg/m2 [facility] 01-06-2024 22:19-0500 Body temperature 98 [degF] [facility] 01-06-2024 22:19-0500 Body weight 121.6 kg [facility] 01-05-2024 08:09-0500 Body height 181.6 cm Fela Gan MD Work Phone: [facility] 01-05-2024 08:09-0500 Body weight 117.94 kg Fela Gan MD Work Phone: [facility] 11-08-2023 15:01-0500 Diastolic blood pressure 90 mm[Hg] Sanjay Talbot MD Work Phone: 9(856)816-444018 [place] [address] 11-08-2023 15:01-0500 Heart rate 83 /min Sanjay Talbot MD Work Phone: 1(701)094-626688 [place] [address] 11-08-2023 15:01-0500 Respiratory rate 18 /min Sanjay Talbot MD Work Phone: 5(558)312-951410 [address] 11-08-2023 15:01-0500 SaO2% (BldA) [Mass fraction] 98 % Sanjay Talbot MD Work Phone: 4(580)245-030918 [place] [address] 11-08-2023 15:01-0500 Systolic blood pressure 139 mm[Hg] Sanjay Talbot MD Work Phone: 6(540)307-465918 [place] [address] 11-08-2023 10:33-0500 Body height 180.3 cm Sanjay Talbot MD Work Phone: 8(944)095-892010 [address] 11-08-2023 10:33-0500 Body mass index (BMI) [Ratio] 36.12 kg/m2 Sanjay Talbot MD Work Phone: 7(146)583-362418 [place] [address] 11-08-2023 10:33-0500 Body weight 117.48 kg Sanjay Talbot MD Work Phone: 1(948)636-841618 [place] [address] 11-08-2023 10:32-0500 Body temperature 97.39 [degF] Sanjay Talbot MD Work Phone: [facility] 10-13-2023 11:16-0500 Body height 181.6 cm Fela Gan MD Work Phone: [facility] 10-13-2023 11:16-0500 Body weight 119.75 kg Fela Gan MD Work Phone: [facility] 10-06-2023 23:07-0500 Diastolic blood pressure 71 mm[Hg] [facility] 10-06-2023 23:07-0500 Heart rate 86 /min [facility] 10-06-2023 23:07-0500 Respiratory rate 16 /min [facility] 10-06-2023 23:07-0500 SaO2% (BldA) [Mass fraction] 97 % [facility] 10-06-2023 23:07-0500 Systolic blood pressure 132 mm[Hg] [facility] 10-06-2023 21:36-0500 Body height 180.3 cm [facility] 10-06-2023 21:36-0500 Body mass index (BMI) [Ratio] 33.33 kg/m2 [facility] 10-06-2023 21:36-0500 Body weight 108.41 kg [facility] 10-06-2023 21:35-0500 Body temperature 98.29 [degF] [facility] 09-22-2023 08:07-0400 Body mass index (BMI) [Ratio] 29.2 kg/m2 [facility] 09-22-2023 08:07-0400 Body weight 95.25 kg [facility] 09-22-2023 08:07-0400 Diastolic blood pressure 80 mm[Hg] [facility] 09-22-2023 08:07-0400 Heart rate 68 /min [facility] 09-22-2023 08:07-0400 Respiratory rate 18 /min [facility] 09-22-2023 08:07-0400 Systolic blood pressure 109 mm[Hg] [facility] 09-22-2023 06:53-0400 Body height 180.34 cm [facility] 09-22-2023 06:53-0400 Body temperature 97.9 [degF] [facility] 09-22-2023 06:53-0400 SaO2% (BldA) [Mass fraction] 98 % [facility] 08-11-2023 13:52-0400 Body temperature 98.06 [degF] No Pcp Required [facility] 08-11-2023 13:52-0400 Diastolic blood pressure 86 mm[Hg] No Pcp Required [facility] 08-11-2023 13:52-0400 Heart rate 80 /min No Pcp Required [facility] 08-11-2023 13:52-0400 Respiratory rate 16 /min No Pcp Required [facility] 08-11-2023 13:52-0400 SaO2% (BldA) [Mass fraction] 96 % No Pcp Required [facility] 08-11-2023 13:52-0400 Systolic blood pressure 128 mm[Hg] No Pcp Required [facility] 07-20-2023 15:22-0400 Body height 180.3 cm Patricia Cifuentesstall DO Work Phone: [facility] 07-20-2023 15:22-0400 Body temperature 97.59 [degF] Patricia Cifuentesstall DO Work Phone: [facility] 07-20-2023 15:22-0400 Body weight 121.56 kg Patricia Cifuentesstall DO Work Phone: [facility] 07-20-2023 15:22-0400 Diastolic blood pressure 75 mm[Hg] Patricia Shuffstall DO Work Phone: [facility] 07-20-2023 15:22-0400 Heart rate 83 /min Patricia Cifuentesstall DO Work Phone: [facility] 07-20-2023 15:22-0400 Respiratory rate 18 /min Patricia Cifuentesstall DO Work Phone: [facility] 07-20-2023 15:22-0400 SaO2% (BldA) [Mass fraction] 99 % Patricia Roy DO Work Phone: [facility] 07-20-2023 15:22-0400 Systolic blood pressure 110 mm[Hg] Patricia Roy DO Work Phone: [facility] 07-06-2023 11:29-0400 Body height 182.9 cm Fela Gan MD Work Phone: [facility] 07-06-2023 11:29-0400 Body weight 119.75 kg Fela Gan MD Work Phone: [facility] 03-17-2023 08:45-0400 Body height 182.9 cm Fela Gan MD Work Phone: [facility] 03-17-2023 08:45-0400 Body weight 135.63 kg Fela Gan MD Work Phone: [facility] 03-11-2023 12:57-0400 Body height 180.34 cm [facility] 03-11-2023 12:57-0400 Body mass index (BMI) [Ratio] 41.1 kg/m2 [facility] 03-11-2023 12:57-0400 Body temperature 97 [degF] [facility] 03-11-2023 12:57-0400 Body weight 133.8 kg [facility] 03-11-2023 12:57-0400 Diastolic blood pressure 78 mm[Hg] [facility] 03-11-2023 12:57-0400 Heart rate 60 /min [facility] 03-11-2023 12:57-0400 Respiratory rate 18 /min [facility] 03-11-2023 12:57-0400 SaO2% (BldA) [Mass fraction] 100 % [facility] 03-11-2023 12:57-0400 Systolic blood pressure 134 mm[Hg] [facility] 01-10-2023 08:05-0500 Body height 182.9 cm Fela Gan MD Work Phone: [facility] 01-10-2023 08:05-0500 Body weight 148.24 kg Fela Gan MD Work Phone: [facility] 01-10-2023 08:05-0500 Diastolic blood pressure 82 mm[Hg] Fela Gan MD Work Phone: [facility] 01-10-2023 08:05-0500 Heart rate 92 /min Fela Gan MD Work Phone: [facility] 01-10-2023 08:05-0500 Systolic blood pressure 124 mm[Hg] Fela Gan MD Work Phone: [facility] 09-28-2022 10:28-0400 Body height 182.9 cm Yesy Jim DO Work Phone: [facility] 09-28-2022 10:28-0400 Body temperature 97.59 [degF] Yesy Jim DO Work Phone: [facility] 09-28-2022 10:28-0400 Body weight 147.87 kg Yesy Jim DO Work Phone: [facility] 09-28-2022 10:28-0400 Diastolic blood pressure 94 mm[Hg] Yesy Jim DO Work Phone: [facility] 09-28-2022 10:28-0400 Heart rate 90 /min Yesy Jim DO Work Phone: [facility] 09-28-2022 10:28-0400 Respiratory rate 19 /min Yesy Jim DO Work Phone: [facility] 09-28-2022 10:28-0400 SaO2% (BldA) [Mass fraction] 97 % Yesy Jim DO Work Phone: [facility] 09-28-2022 10:28-0400 Systolic blood pressure 138 mm[Hg] Yesy Jim DO Work Phone: [facility] 07-18-2022 11:17-0400 Body height 182.9 cm Yesy Jim DO Work Phone: [facility] 07-18-2022 11:17-0400 Body temperature 97.9 [degF] Yesy Jim DO Work Phone: [facility] 07-18-2022 11:17-0400 Body weight 148.78 kg Yesy Fernandez DO Work Phone: [facility] 07-18-2022 11:17-0400 Diastolic blood pressure 76 mm[Hg] Yesy Fernandez DO Work Phone: [facility] 07-18-2022 11:17-0400 Heart rate 87 /min Yesy Jim DO Work Phone: [facility] 07-18-2022 11:17-0400 Respiratory rate 18 /min Yesy Fernandez DO Work Phone: [facility] 07-18-2022 11:17-0400 SaO2% (BldA) [Mass fraction] 97 % Yesy Fernandez DO Work Phone: [facility] 07-18-2022 11:17-0400 Systolic blood pressure 120 mm[Hg] Yesy Fernandez DO Work Phone: [facility] 07-04-2022 07:58-0400 Body height 180.34 cm [facility] Work Phone: 07-04-2022 07:58-0400 Body mass index (BMI) [Ratio] 44.1 kg/m2 [facility] Work Phone: 07-04-2022 07:58-0400 Body temperature 97.2 [degF] [facility] Work Phone: 07-04-2022 07:58-0400 Body weight 143.7 kg [facility] Work Phone: 07-04-2022 07:58-0400 Diastolic blood pressure 91 mm[Hg] [facility] Work Phone: 07-04-2022 07:58-0400 Heart rate 116 /min [facility] Work Phone: 07-04-2022 07:58-0400 Respiratory rate 17 /min [facility] Work Phone: 07-04-2022 07:58-0400 SaO2% (BldA) [Mass fraction] 98 % [facility] Work Phone: 07-04-2022 07:58-0400 Systolic blood pressure 132 mm[Hg] [facility] Work Phone: Encounters Encounter Date Encounter Type Care Provider Facility Start: 09-30-2025 End: 09-30-2025 ambulatory PATRICIA ALVAREZ Facility:[facility] Start: 08-27-2025 End: 08-27-2025 Emergency department patient visit No Primary Care Physician -Emergency Department Work Phone: Start: 08-11-2025 End: 08-11-2025 ambulatory Fela Gan MD Work Phone: [facility] Start: 08-11-2025 End: 08-11-2025 Patient encounter procedure Fela Gan MD Work Phone: [facility] Comment on above: Prior authorization info Start: 08-04-2025 End: 08-08-2025 Patient encounter procedure Fela Gan MD Work Phone: [facility] Comment on above: Piotr Start: 08-04-2025 End: 08-08-2025 ambulatory JESSICA R DIEGO Facility:[facility] Start: 08-01-2025 End: 08-04-2025 ambulatory [facility] Provider [facility] Internal [facility] ([facility]) Start: 08-01-2025 End: 08-04-2025 Patient encounter procedure [facility] Provider [facility] ([facility]) Comment on above: Metformin Refill Request Refill Start: 06-10-2025 End: 06-10-2025 Patient encounter procedure Marisol Avendaño PA-C Work Phone: Plastic Surgery Comment on above: Post-operative state (Primary Dx) Start: 06-10-2025 End: 06-10-2025 ambulatory JESSICA R DIEGO Facility:[facility] Start: 06-10-2025 End: 06-10-2025 Chart abstracting Miguel Damon MA Plastic Surgery Comment on above: PHOTOS TAKEN Start: 06-10-2025 End: 06-10-2025 Telephone encounter Sarah Jacome MD Work Phone: Plastic Surgery Comment on above: Patient Update (Conv ersation regarding seatbelt) Start: 06-04-2025 End: 06-05-2025 Refill Steve Manzo MD Work Phone: [facility] Internal Medicine [facility] ([facility]) Comment on above: Refill Request Start: 05-29-2025 End: 2025 Admission to same day surgery center [facility] Plastic Surgery Comment on above: Appointment with Dr. Jacome Start: 05-29-2025 End: 2025 E-mail encounter from caregiver [facility] Provider Plastic Surgery Start: 05-23-2025 End: 05-23-2025 Telephone encounter Fela Gan MD Work Phone: [facility] Comment on above: Appointment Start: 05-13-2025 End: 05-13-2025 Postop follow up visit related to original px Sarah Jacome MD Work Phone: Plastic Surgery Comment on above: Post-operative state (Primary Dx) Start: 05-13-2025 End: 05-13-2025 ambulatory SARAH JACOME Facility:[facility] Start: 05-09-2025 End: 05-09-2025 Patient encounter procedure Nurse [facility] Work Phone: Plastic Surgery Comment on above: Post-operative state (Primary Dx) Start: 05-09-2025 End: 05-09-2025 ambulatory JOSÉ ELIZABETH Facility:[facility] Start: 05-06-2025 End: 05-06-2025 Postop follow up visit related to original px Sarah Jacome MD Work Phone: Plastic Surgery Comment on above: Post-operative state (Primary Dx) Start: 05-06-2025 End: 05-06-2025 ambulatory SARAH JACOME Facility:[facility] Start: 05-04-2025 End: 05-04-2025 Orders Only Sarah Jacome MD Work Phone: Plastic Surgery Comment on above: Post-operative state (Primary Dx) Start: 04-23-2025 End: 04-23-2025 ambulatory SARAH JACOME Facility:[facility] Start: 04-18-2025 End: 06-18-2025 Follow-up encounter Yasmeen Herzog MD Work Phone: [facility] Start: 04-18-2025 End: 04-18-2025 ambulatory JOSÉ ELIZABETH Facility:[facility] Start: 04-15-2025 End: 04-15-2025 ambulatory SARAH JACOME Facility:[facility] Start: 04-12-2025 End: 04-24-2025 Admission to same day surgery center Sarah Jacome MD Work Phone: Plastic Surgery Comment on above: Visit Start: 04-12-2025 End: 04-24-2025 ambulatory Sarah Jacome MD Work Phone: Plastic Surgery Start: 04-10-2025 End: 04-10-2025 Patient encounter procedure Ranice Verchick PIPE FITTER.PARTY PLAN SALES DIRECTOR Work Phone: Plastic Surgery Comment on above: Post-operative state (Primary Dx) Start: 04-10-2025 End: 04-10-2025 ambulatory RANICE VERRICARDOCK Facility:[facility] Start: 04-07-2025 End: 04-07-2025 Patient encounter procedure Ranice Verchick PIPE FITTER.PARTY PLAN SALES DIRECTOR Work Phone: Plastic Surgery Comment on above: Post-operative state (Primary Dx) Start: 04-07-2025 End: 04-07-2025 ambulatory RANICE VERCHICK Facility:[facility] Start: 04-05-2025 End: 04-05-2025 Orders Only Sarah Jacome MD Work Phone: Plastic Surgery Comment on above: Post-operative state (Primary Dx) Start: 04-05-2025 End: 04-05-2025 Unlisted evaluation and management service Sarah Jacome MD Work Phone: Plastic Surgery Comment on above: Post-operative state (Primary Dx) Start: 04-04-2025 End: 04-05-2025 Refill Yasmeen Herzog MD Work Phone: [facility] Internal Medicine [facility] ([facility]) Comment on above: Refill Request (Meto prolol. ) Start: 04-02-2025 End: 04-02-2025 Patient encounter procedure Bennie Gregorylisseth FLORES Work Phone: Plastic Surgery Comment on above: Post-operative state (Primary Dx) Start: 04-02-2025 End: 04-02-2025 ambulatory TED-ALI LOTFIAN Facility:[facility] Start: 04-01-2025 End: 04-07-2025 ambulatory Sarah Jacome MD Work Phone: Plastic Surgery Start: 04-01-2025 End: 04-07-2025 Follow-up encounter Sarah Jacome MD Work Phone: Plastic Surgery Comment on above: Surgery follow up Start: 03-28-2025 End: 03-31-2025 ambulatory Fela Gan MD Work Phone: [facility] Start: 03-28-2025 End: 03-31-2025 Patient encounter procedure Fela Gan MD Work Phone: [facility] Comment on above: Gabrielle Start: 03-27-2025 End: 03-27-2025 ambulatory TED-ALI LOTFIAN Facility:[facility] Start: 03-26-2025 End: 03-26-2025 Telephone encounter Sarah Jacome MD Work Phone: Plastic Surgery Comment on above: Surgery Arrival Start: 03-20-2025 End: 03-20-2025 ambulatory TED-ALI LOTFIAN Facility:[facility] Start: 03-03-2025 End: 03-03-2025 ambulatory MARICHUY MICHELLE Facility:[facility] Start: 03-03-2025 End: 03-03-2025 Patient encounter procedure Marichuy Michelle MD Work Phone: Neurology Comment on above: Traumatic brain inju ry, with unknown loss of consciousness status, subsequent encounter (Primary Dx); Post-concussion headache; Memory dysfunction following head trauma Start: 02-18-2025 End: 02-18-2025 ambulatory SARAH JACOME Facility:[facility] Start: 02-18-2025 End: 02-18-2025 Chart abstracting Ashli Hooper MA Plastic Surgery Comment on above: PHOTOS TAKEN Start: 02-18-2025 End: 02-18-2025 Office outpatient visit 25 minutes Yasmeen Herzog MD Work Phone: [facility] ([facility]) Comment on above: Primary hypertension (Primary Dx); Controlled type 2 diabetes mellitus without complication, without long-term current use of insulin (HCC); Screening for diabetic retinopathy; Screening for depression; Encounter for screening examination for other mental health and behavioral disorders; Screening for cervical cancer; Traumatic brain injury, with unknown loss of consciousness status, subsequent encounter; Leg swelling Excess skin of abdom inal wall (Primary Dx) Start: 02-18-2025 End: 02-18-2025 ambulatory YASMEEN HERZOG Facility:[facility] Start: 02-17-2025 End: 02-17-2025 ambulatory JOSÉ ELIZABETH Facility:[facility] Start: 02-12-2025 End: 02-12-2025 ambulatory FELA GAN Facility:[facility] Start: 02-05-2025 End: 02-05-2025 Refill Yasmeen Herzog MD Work Phone: [facility] ([facility]) Comment on above: Refill Request (meto prolol) Start: 01-27-2025 End: 01-28-2025 ambulatory Fela Gan MD Work Phone: [facility] Start: 01-27-2025 End: 01-28-2025 Patient encounter procedure Fela Gan MD Work Phone: [facility] Comment on above: Mounjaro Start: 01-02-2025 End: 01-02-2025 Refill Fela Gan MD Work Phone: [facility] Comment on above: Refill Request Start: 01-02-2025 End: 01-02-2025 Refill Fela Gan MD Work Phone: [facility] Comment on above: Refill Request Start: 12-26-2024 End: 12-26-2024 Telephone encounter Patricia Alvarez DO Work Phone: [facility] ([facility]) Comment on above: Referral Information (Dermatology) Start: 12-25-2024 End: 12-25-2024 Office outpatient visit 15 minutes Patricia Alvarez DO Work Phone: [facility] ([facility]) Comment on above: Hypertrophy of fat ( Primary Dx); Class 1 obesity without serious comorbidity with body mass index (BMI) of 31.0 to 31.9 in adult, unspecified obesity type; Traumatic brain injury, with unknown loss of consciousness status, subsequent encounter; Hirsutism; Obesity, Class I, BMI 30-34.9 Start: 12-25-2024 End: 12-25-2024 ambulatory PATRICIA ALVAREZ Facility:[facility] Start: 12-11-2024 End: 12-11-2024 Get Medical Advice Patricia Roy DO Work Phone: [facility] ([facility]) Comment on above: Medication needed an d portal won't allow refill Start: 12-09-2024 End: 12-10-2024 Refill José Elizabeth MD Work Phone: [facility] ([facility]) Comment on above: Refill Request (meto prolol) Start: 12-08-2024 End: 12-10-2024 Refill Ginette Chavez APRN.CNP Work Phone: [facility] Comment on above: Refill Request Start: 12-05-2024 End: 12-26-2024 Admission to same day surgery center Sarah Jacome MD Work Phone: Plastic Surgery Comment on above: Surgery Start: 12-05-2024 End: 12-26-2024 ambulatory Sarah Jacome MD Work Phone: Plastic Surgery Start: 11-29-2024 End: 12-02-2024 ambulatory Fela Gan MD Work Phone: [facility] Start: 11-29-2024 End: 12-03-2024 Patient encounter procedure Fela Gan MD Work Phone: [facility] Comment on above: New prior auth new i nsurance Refill Request Start: 11-28-2024 End: 11-28-2024 Orders Only Sarah Jacome MD Work Phone: Plastic Surgery Comment on above: Post-operative state (Primary Dx); Excess skin Start: 11-11-2024 End: 11-13-2024 ambulatory Fela Gan MD Work Phone: [facility] Start: 11-11-2024 End: 11-13-2024 Patient encounter procedure Fela Gan MD Work Phone: [facility] Comment on above: PRIOR AUTH needs cov erage Start: 11-11-2024 End: 11-11-2024 Telephone encounter Fela Gan MD Work Phone: [facility] Comment on above: Medication Problem; Appointment Start: 10-31-2024 End: 10-31-2024 Patient encounter procedure Fela Gan MD Work Phone: [facility] Comment on above: Type 2 diabetes tawny itus with other specified complication, with long-term current use of insulin (HCC) (Primary Dx); Type 2 diabetes mellitus without complication, without long-term current use of insulin (HCC); BMI 34.0-34.9,adult; Dietary counseling and surveillance; Class 1 obesity; Primary hypertension Start: 10-31-2024 End: 10-31-2024 Telemedicine consultation with patient Fela Gan MD Work Phone: [facility] Start: 10-31-2024 End: 10-31-2024 ambulatory FELA GAN [facility] Start: 10-14-2024 End: 10-14-2024 Orders Only Sarah Jacome MD Work Phone: Plastic Surgery Comment on above: Post-operative state (Primary Dx) Start: 10-11-2024 End: 11-01-2024 ambulatory Fela Gan MD Work Phone: [facility] Start: 10-11-2024 End: 11-01-2024 Patient encounter procedure Fela Gan MD Work Phone: [facility] Comment on above: Medication Start: 10-05-2024 End: 10-07-2024 Refill José Elizabeth MD Work Phone: [facility] Internal Medicine [facility] ([facility]) Comment on above: Refill Request (Meto prolol ) Start: 09-27-2024 End: 09-30-2024 Admission to same day surgery center Sarah Jacome MD Work Phone: Plastic Surgery Comment on above: Prior auth Start: 09-27-2024 End: 09-30-2024 ambulatory Sarah Jacome MD Work Phone: Plastic Surgery Start: 09-17-2024 End: 09-17-2024 Postop follow up visit related to original px Sarah Jacome MD Work Phone: Plastic Surgery Comment on above: Post-operative state (Primary Dx) Start: 09-17-2024 End: 09-17-2024 Chart abstracting Ashli Hooper MA Plastic Surgery Comment on above: PHOTOS TAKEN Start: 09-12-2024 End: 09-12-2024 ambulatory Fela Gan MD Work Phone: [facility] Start: 09-12-2024 End: 09-12-2024 Patient encounter procedure Fela Gan MD Work Phone: [facility] Comment on above: Prior auth Start: 09-09-2024 End: 09-10-2024 Refill José Elizabeth MD Work Phone: [facility] ([facility]) Comment on above: Refill Request Start: 09-02-2024 End: 09-05-2024 Refill Fela Gan MD Work Phone: [facility] Comment on above: Refill Request Mounjaro Start: 09-01-2024 End: 09-03-2024 Refill Fela Gan MD Work Phone: [facility] Comment on above: Refill Request Start: 08-28-2024 End: 08-29-2024 ambulatory José Elizabeth MD Work Phone: [facility] ([facility]) Start: 08-28-2024 End: 08-29-2024 Patient encounter procedure José Elizabeth MD Work Phone: [facility] ([facility]) Comment on above: Neurological appoint ment Start: 08-23-2024 End: 08-23-2024 Telephone encounter Alirio Smith APRN.PARTY PLAN SALES DIRECTOR Work Phone: [facility] Comment on above: Results Start: 08-23-2024 End: 08-23-2024 ambulatory JOSÉ ELIZABETH Facility:[facility] Start: 08-23-2024 End: 08-23-2024 Patient encounter procedure France Dennison APRN.PARTY PLAN SALES DIRECTOR Work Phone: [facility] Comment on above: Rash (Primary Dx); Itching Start: 08-20-2024 End: 08-20-2024 Postop follow up visit related to original px Sarah Jacome MD Work Phone: Plastic Surgery Comment on above: Post-operative state (Primary Dx) Start: 08-14-2024 End: 08-15-2024 ambulatory José Elizabeth MD Work Phone: [facility] ([facility]) Start: 08-14-2024 End: 08-15-2024 Patient encounter procedure José Elizabeth MD Work Phone: [facility] ([facility]) Comment on above: Metoprolol Refill Request Start: 08-08-2024 End: 08-08-2024 Patient encounter procedure Bennie Gregorylisseth FLORES Work Phone: [facility] Plastic Surgery Comment on above: Post-operative state (Primary Dx) Start: 08-03-2024 End: 08-05-2024 Admission to same day surgery center Sarah Jacome MD Work Phone: Plastic Surgery Comment on above: Severe cramping Start: 08-03-2024 End: 08-05-2024 ambulatory Sarah Jacome MD Work Phone: Plastic Surgery Start: 08-03-2024 End: 08-05-2024 Patient encounter procedure Fela Gan MD Work Phone: [facility] Comment on above: 5 mg Start: 07-31-2024 End: 07-31-2024 Telephone encounter Yasmeen Herzog MD Work Phone: [facility] ([facility]) Comment on above: Appointment (Schedul ing ) Start: 07-26-2024 End: 07-26-2024 Patient encounter procedure Fela Gan MD Work Phone: [facility] Comment on above: Class 1 obesity (Sagrario ginette Dx); Type 2 diabetes mellitus without complication, without long-term current use of insulin (HCC); Body mass index 30.0-30.9, adult; Dietary counseling and surveillance; Primary hypertension Start: 07-26-2024 End: 07-26-2024 Telemedicine consultation with patient Fela Gan MD Work Phone: [facility] Start: 07-25-2024 End: 07-25-2024 Admission to same day surgery center Bennie Gregoryricardotesfaye RIAZ.PARTY PLAN SALES DIRECTOR Work Phone: [facility] Plastic Surgery Comment on above: Medication Start: 07-25-2024 End: 07-25-2024 ambulatory Bennie Pichardo PIPE FITTER.PARTY PLAN SALES DIRECTOR Work Phone: [facility] Plastic Surgery Start: 07-25-2024 End: 07-25-2024 Patient encounter procedure Bennie Pichardo PIPE FITTER.PARTY PLAN SALES DIRECTOR Work Phone: [facility] Plastic Surgery Comment on above: Post-operative state (Primary Dx) Start: 07-23-2024 End: 07-23-2024 Telephone encounter Sarah Jacome MD Work Phone: Plastic Surgery Comment on above: Surgery Arrival Start: 07-17-2024 End: 07-17-2024 ambulatory Fela Gan MD Work Phone: [facility] Start: 07-17-2024 End: 07-17-2024 Patient encounter procedure Fela Gan MD Work Phone: [facility] Comment on above: Mounjaro Start: 07-16-2024 End: 07-16-[address] [facility] Pre Surgical Testing Start: 07-16-2024 End: 07-16-[address] [facility] Pre Surgical Testing Comment on above: Preoperative examina tion (Primary Dx); Obesity, Class II, BMI 35-39.9; Controlled type 2 diabetes mellitus without complication, without long-term current use of insulin (HCC); Primary hypertension Start: 07-16-2024 End: 07-16-2024 Preprocedural examination done Pst 1 [facility] Work Phone: Start: 07-16-2024 Encounter for other preprocedural examination YASMEEN HERZOG [facility] Start: 07-15-2024 Preprocedural examin ation done Ginette Chavez APRN.PARTY PLAN SALES DIRECTOR Work Phone: [facility] Work Phone: Start: 07-11-2024 ambulatory Fela Gan MD Work Phone: [facility] Start: 07-11-2024 Patient encounter procedure Fela Gan MD Work Phone: [facility] Comment on above: 15 mg Start: 07-10-2024 End: 07-15-2024 Refill Miya Melissa Terrakylemiraclealyson DO Work Phone: [facility] ([facility]) Comment on above: Refill Request Start: 07-06-2024 Refill Fela Gan MD Work Phone: [facility] Comment on above: Refill Request Start: 06-28-2024 Telephone encounter Self OB/ Gynecology Comment on above: request for medical information/letter Start: 06-25-2024 End: 06-25-2024 Office outpatient visit 25 minutes Sraah Jacome MD Work Phone: Plastic Surgery Comment on above: Excess skin of abdom inal wall (Primary Dx) Start: 06-19-2024 Orders Only Sarah hooper MD Work Phone: Plastic Surgery Comment on above: Excess skin (Primary Dx) Start: 06-08-2024 ambulatory Patricia Dhaval wolfe DO Work Phone: [facility] ([facility]) Start: 06-08-2024 Patient encounter procedure Patricia Cifuentesmery DO Work Phone: [facility] ([facility]) Comment on above: Medication Refill Request Start: 06-08-2024 Refill Fela Gan MD Work Phone: [facility] Comment on above: Refill Request Start: 05-21-2024 Admission to [facility] Sarah Jacome MD Work Phone: Plastic Surgery Comment on above: Photo of rash Start: 05-21-2024 ambulatory Sarah hooper MD Work Phone: Plastic Surgery Start: 05-21-2024 Chart abstracting Ashli Hooper MA Plastic Surgery Comment on above: PHOTOS TAKEN Start: 05-21-2024 End: 05-21-2024 Unlisted evaluation and management service Sarah Jacome MD Work Phone: Plastic Surgery Comment on above: Excess skin of abdom inal wall (Primary Dx) Start: 05-13-2024 ambulatory Fela Gan MD Work Phone: [facility] Start: 05-13-2024 Patient encounter procedure Fela Gan MD Work Phone: [facility] Comment on above: 12.5 Start: 05-10-2024 End: 05-10-2024 Office outpatient new 45 minutes Indira Degroot APRN.PARTY PLAN SALES DIRECTOR Work Phone: [facility] Comment on above: Intertrigo (Primary Dx); Rash; Loose skin; Excess skin of abdominal wall Start: 05-10-2024 End: 05-10-2024 ambulatory INDIRA DEGROOT Facility:[facility] Start: 05-02-2024 End: 05-02-2024 Subsequent hospital visit by physician [facility] [employer] [facility] W[facility] (I-Stat/1.5t) Work Phone: Radiology Start: 04-30-2024 End: 04-30-2024 Patient encounter procedure Zulma Tobin APRN.PARTY PLAN SALES DIRECTOR Work Phone: [facility] Comment on above: Headache, unspecifie d headache type (Primary Dx); Blurred vision, bilateral Start: 04-30-2024 ambulatory Matilde cleveland PA-C Work Phone: Neurology Comment on above: Headaches Start: 04-26-2024 Admission to [facility] Fela Gan MD Work Phone: [facility] Comment on above: Cosmetic surgery Start: 04-26-2024 ambulatory Fela Gan MD Work Phone: [facility] Start: 04-23-2024 End: 04-23-2024 Patient encounter procedure Fela Gan MD Work Phone: [facility] Comment on above: Class 3 severe obesi ty with serious comorbidity in adult, unspecified BMI, unspecified obesity type (HCC) (Primary Dx); Excess skin of abdomen; Recurrent infection of skin; Type 2 diabetes mellitus without complication, without long-term current use of insulin (HCC); Dietary counseling and surveillance; Body mass index 40.0-44.9, adult (HCC); Primary hypertension Start: 04-11-2024 End: 04-11-2024 Subsequent hospital visit by physician [facility] (I-Stat) Work Phone: Cat Scan Comment on above: Concussion with loss of consciousness, with loc of unspecified duration, initial encounter [S06.0X9A] Start: 04-09-2024 Refill Ginette rodrigez APRN.PARTY PLAN SALES DIRECTOR Work Phone: [facility] Comment on above: Refill Request Refill Request (meto prolol) Start: 04-03-2024 End: 04-03-2024 Patient encounter procedure Matilde Watters PA-C Work Phone: Neurology Comment on above: Concussion with loss of consciousness, with loc of unspecified duration, initial encounter (Primary Dx); Traumatic brain injury, with unknown loss of consciousness status, subsequent encounter; Intractable acute post-traumatic headache Start: 03-26-2024 Telephone encounter Yesy sotomayor DO Work Phone: [facility] Internal [facility] ([facility]) Comment on above: Insurance Authorizat ion (MRI) Start: 03-24-2024 Refill Fela Gan MD Work Phone: [facility] Comment on above: Refill Request Refill Request (dulo xetine) Start: 03-21-2024 End: 03-21-2024 Patient encounter procedure Gaby Neumann DO Work Phone: [facility] Internal [facility] ([facility]) Comment on above: Back pain, unspecifi ed back location, unspecified back pain laterality, unspecified chronicity (Primary Dx) Start: 02-27-2024 End: 02-27-2024 Patient encounter procedure Hao Fernandez APRN.PARTY PLAN SALES DIRECTOR Work Phone: [facility] Comment on above: URI, acute (Primary Dx) Start: 02-15-2024 Refill Yesy Fernandez DO Work Phone: [facility] ([facility]) Comment on above: Refill Request Start: 02-12-2024 Telephone encounter Fela leiva MD Work Phone: [facility] Comment on above: Medication Problem Refill Request Start: 02-01-2024 Social Work Heidy Sahni CORRECTIONAL MANAGER Work Phone: [facility] ([facility]) Start: 01-25-2024 Telephone encounter Yesy sotomayor DO Work Phone: [facility] ([facility]) Comment on above: Referral Request Start: 01-25-2024 End: 01-25-2024 Emergency department patient visit YESY Bello [facility] Start: 01-25-2024 End: 01-25-2024 Emergency department patient visit Sanjay Talbot MD Work Phone: [facility] Emergency [facility] Start: 01-19-2024 Telephone encounter Angelo Hinton MD Work Phone: [facility] ([facility]) Comment on above: Referral Information (EMIR) Start: 01-15-2024 Telephone encounter Angelo Hinton MD Work Phone: [facility] ([facility]) Comment on above: Referral Information (Physical therapy) Start: 01-15-2024 End: 01-15-2024 Patient encounter procedure Angelo Hinton MD Work Phone: [facility] ([facility]) Comment on above: Neck pain, acute (Pr imary Dx); Acute midline thoracic back pain; Pain of right hip; Dysuria; Primary hypertension Start: 01-12-2024 Telephone encounter Yesy sotomayor DO Work Phone: [facility] ([facility]) Comment on above: Patient Question No Show (No Show #1) Start: 01-11-2024 Telephone encounter José Elizabeth MD Work Phone: [facility] ([facility]) Comment on above: Appointment Reminder Start: 01-06-2024 End: 01-07-2024 Emergency department patient visit [facility] Work Phone: Start: 01-05-2024 End: 01-05-2024 ambulatory Fela Gan MD Work Phone: [facility] Comment on above: Class 3 severe obesi ty with serious comorbidity in adult, unspecified BMI, unspecified obesity type (HCC) (Primary Dx); Body mass index 40.0-44.9, adult (HCC); Dietary counseling and surveillance; Type 2 diabetes mellitus without complication, without long-term current use of insulin (HCC); Vitamin D deficiency; Primary hypertension Start: 01-05-2024 End: 01-05-2024 Telemedicine consultation with patient Fela Gan MD Work Phone: [facility] Start: 11-08-2023 End: 11-08-2023 Emergency department patient visit [facility] Start: 11-08-2023 End: 11-08-2023 Emergency department patient visit Sanjay Talbot MD Work Phone: [facility] Emergency Department Start: 10-13-2023 End: 10-13-2023 ambulatory Fela Gan MD Work Phone: [facility] Comment on above: Class 3 severe obesi ty with serious comorbidity in adult, unspecified BMI, unspecified obesity type (HCC) (Primary Dx); Primary hypertension; Dietary counseling and surveillance; Body mass index 40.0-44.9, adult (HCC); Vitamin D deficiency; Controlled type 2 diabetes mellitus without complication, without long-term current use of insulin (HCC); Type 2 diabetes mellitus without complication, without long-term current use of insulin (HCC) Refill Request Start: 10-13-2023 End: 10-13-2023 Telemedicine consultation with patient Fela Gan MD Work Phone: [facility] Start: 10-12-2023 Refill Ginette Mckay elia MELLO.PARTY PLAN SALES DIRECTOR Work Phone: [facility] Comment on above: Refill Request Start: 10-06-2023 End: 10-07-2023 Emergency department patient visit PROVIDER NOT IN [facility] Start: 10-06-2023 End: 10-06-2023 Emergency department patient visit Provider [facility] Emergency Department Start: 09-27-2023 End: 09-27-2023 Unlisted evaluation and management service Beth Rosen APRN.PARTY PLAN SALES DIRECTOR Work Phone: [facility] Comment on above: NO SHOW (Primary Dx) Start: 09-22-2023 End: 09-22-2023 Emergency department patient visit [facility] Work Phone: Start: 09-08-2023 Telephone encounter Yesy sotomayor DO Work Phone: [facility] ([facility]) Comment on above: Appointment Reminder Start: 08-21-2023 Refill Fela Gan MD Work Phone: [facility] Comment on above: Refill Request Start: 08-11-2023 End: 08-11-2023 Emergency department patient visit Inder Menard Formerly named [facility] Urgent [place] [id number] Start: 08-07-2023 Refill José casas MD Work Phone: [facility] ([facility]) Comment on above: Refill Request Start: 08-05-2023 Refill Fela Gan MD Work Phone: [facility] Comment on above: Refill Request Start: 07-27-2023 Telephone encounter Patricia santos DO Work Phone: [facility] ([facility]) Comment on above: Referral Information (Consult to psychiatry) Start: 07-20-2023 End: 07-20-2023 Office outpatient visit 15 minutes Patricia Roy DO Work Phone: [facility] ([facility]) Comment on above: Anxiety (Primary Dx) ; Vitamin D deficiency; Recurrent major depressive disorder, remission status unspecified (HCC); PTSD (post-traumatic stress disorder); Obesity, Class II, BMI 35-39.9 Start: 07-10-2023 Telephone encounter Fela leiva MD Work Phone: [facility] Comment on above: Missed Appointment Start: 07-06-2023 End: 07-10-2023 ambulatory Fela Gan MD Work Phone: [facility] Comment on above: Class 3 severe obesi ty with serious comorbidity in adult, unspecified BMI, unspecified obesity type (HCC) (Primary Dx); Uncontrolled type 2 diabetes mellitus with hyperglycemia (HCC); Body mass index 40.0-44.9, adult ([facility]); Vitamin D deficiency; Primary hypertension; Dietary counseling and surveillance Start: 07-06-2023 End: 07-10-2023 Telemedicine consultation with patient Fela Gan MD Work Phone: [facility] Start: 06-26-2023 Refill Fela Gan MD Work Phone: [facility] Comment on above: Refill Request Start: 06-15-2023 Emergency department patient visit Ms. Liyah Kwok Facility:[id number] Start: 06-05-2023 Telephone encounter Fela leiva MD Work Phone: [facility] Comment on above: Other Start: 05-29-2023 Refill Yesy Fernandez DO Work Phone: [facility] ([facility]) Comment on above: Refill Request (Mult iple) Start: 05-09-2023 ambulatory Fela Gan MD Work Phone: [facility] Comment on above: metroprolol Start: 03-17-2023 End: 03-17-2023 ambulatory Fela Gan MD Work Phone: [facility] Comment on above: Class 3 severe obesi ty with serious comorbidity in adult, unspecified BMI, unspecified obesity type (HCC) (Primary Dx); Dietary counseling and surveillance; Uncontrolled type 2 diabetes mellitus with hyperglycemia (HCC); Body mass index 40.0-44.9, adult (HCC); Vitamin D deficiency; Primary hypertension Start: 03-17-2023 End: 03-17-2023 Telemedicine consultation with patient Fela Gan MD Work Phone: [facility] Start: 03-16-2023 Telephone encounter Yesy sotomayor DO Work Phone: [facility] ([facility]) Comment on above: Insurance Authorizat ion ([employer]- denied) Start: 03-11-2023 End: 03-11-2023 Emergency department patient visit [facility] Start: 03-10-2023 Refill Yesy Fernandez DO Work Phone: [facility] ([facility]) Comment on above: Refill Request (mult iple medications) Start: 03-09-2023 Refill Yesy Fernandez DO Work Phone: [facility] ([facility]) Comment on above: Refill Request (mult iple medications); Refill Request Start: 02-28-2023 ambulatory Fela Gan MD Work Phone: [facility] Comment on above: Mounjaro Start: 02-20-2023 ambulatory Fela Gan MD Work Phone: [facility] Comment on above: Mounjaro Start: 02-10-2023 Refill Mami hernández MD Work Phone: [facility] ([facility]) Comment on above: Refill Request (well butrin) Start: 02-02-2023 Refill Yesy Fernandez DO Work Phone: [facility] ([facility]) Comment on above: Refill Request (mult iple) Refill Request Patient Update Start: 02-02-2023 Refill Fela Gan MD Work Phone: [facility] Comment on above: Refill Request Start: 01-13-2023 Refill Yesy Fernandez DO Work Phone: [facility] ([facility]) Comment on above: Refill Request (ibup rofen) Start: 01-10-2023 End: 01-10-2023 Patient encounter procedure Fela Gan MD Work Phone: [facility] Comment on above: Class 3 severe obesi ty with serious comorbidity in adult, unspecified BMI, unspecified obesity type (HCC) (Primary Dx); Body mass index 40.0-44.9, adult (HCC); Dietary counseling and surveillance; Vitamin D deficiency; Primary hypertension; Uncontrolled type 2 diabetes mellitus with hyperglycemia (HCC) Refill Request (mult iple) Start: 01-04-2023 Refill Mami hernández MD Work Phone: [facility] ([facility]) Comment on above: Refill Request Start: 01-03-2023 Refill Mami hernández MD Work Phone: [facility] ([facility]) Comment on above: Refill Request (dulo xetine, bupropion) Start: 12-28-2022 Refill Yesy Fernandez DO Work Phone: [facility] ([facility]) Comment on above: Refill Request (metf ormin) Start: 12-23-2022 Telephone encounter Mami vargas MD Work Phone: [facility]) Comment on above: No Show Start: 12-21-2022 Refill Mami hernández MD Work Phone: [facility] ([facility]) Comment on above: Refill Request (Nenita nopril) Start: 12-07-2022 Refill Mami hernández MD Work Phone: [facility]) Comment on above: Refill Request (Invo manuel) Start: 12-02-2022 Refill Mami hernández MD Work Phone: [facility]) Comment on above: Refill Request (mult iple) Start: 11-11-2022 Refill Mami hernández MD Work Phone: [facility] ([facility]) Comment on above: Refill Request (mult iple) Refill Request (napr oxen) Refill Request (mult iple medications) Start: 11-10-2022 Refill Yesy King SALBADOR Work Phone: [facility] ([facility]) Comment on above: Refill Request (meto prolol Succ ER) Start: 11-07-2022 Refill Mami hernández MD Work Phone: [facility] ([facility]) Comment on above: Refill Request (well butrin) Start: 11-02-2022 Refill Mami hernández MD Work Phone: [facility] ([facility]) Comment on above: Refill Request (cymb scott) Refill Request (flex eril) Start: 10-31-2022 Telephone encounter Mami vargas MD Work Phone: [facility]) Comment on above: Opened In Error Start: 10-24-2022 Refill Mami hernández MD Work Phone: [facility] ([facility]) Comment on above: Refill Request (Mult iple) Start: 10-12-2022 Refill Mami hernández MD Work Phone: [facility] ([facility]) Comment on above: Refill Request (bupr opion) Refill Request (meto prolol) Start: 10-07-2022 Refill Mami hernández MD Work Phone: [facility] ([facility]) Comment on above: Refill Request (cymb scott) Start: 09-30-2022 Telephone encounter Yesy sotomayor DO Work Phone: [facility] ([facility]) Comment on above: Referral Information (Consult to Bariatric Surgery) Start: 09-29-2022 ambulatory Yesy Fernandez DO Work Phone: [facility]) Comment on above: Back problems Start: 09-29-2022 Telephone encounter Yesy sotomayor DO Work Phone: [facility] ([facility]) Comment on above: Referral Information (Consult to Bariatric Surgery) Referral Information (Consult to Obstetrics & Gynecology) Start: 09-28-2022 End: 09-28-2022 Refill Mami Morin MD Work Phone: [facility] ([facility]) Comment on above: Refill Request (naty pentin) Type 2 diabetes tawny itus without complication, without long-term current use of insulin (HCC) (Primary Dx); Cervical cancer screening; Strain of lumbar region, initial encounter; Primary hypertension; KOURTNEY (obstructive sleep apnea); Class 3 severe obesity due to excess calories without serious comorbidity with body mass index (BMI) of 40.0 to 44.9 in adult (HCC); Anxiety; Recurrent major depressive disorder, remission status unspecified (HCC); PTSD (post-traumatic stress disorder); Fibromyalgia Start: 09-19-2022 Refill Mami hernández MD Work Phone: [facility] ([facility]) Comment on above: Refill Request (nenita nopril) Start: 08-29-2022 Refill Mami hernández MD Work Phone: [facility] ([facility]) Comment on above: Refill Request (Bupr opion XL , Cymbalata , Erogcalciferol) Start: 08-27-2022 Refill Mami hernández MD Work Phone: [facility] ([facility]) Comment on above: Refill Request Start: 08-10-2022 Refill Yesy Fernandez DO Work Phone: [facility] ([facility]) Comment on above: Refill Request (bupr opion , Duloxetine) Start: 08-05-2022 Telephone encounter Mami vargas MD Work Phone: [facility] ([facility]) Comment on above: 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 - O 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 Start: 08-03-2022 ambulatory Yesy Fernandez DO Work Phone: [facility] Start: 08-03-2022 Patient encounter procedure Yesy Fernandez DO Work Phone: [facility] ([facility]) Comment on above: Appointment Start: 07-28-2022 Telephone encounter Yesy sotomayor DO Work Phone: [facility] ([facility]) Comment on above: Referral Information (Consult to Obesity Medicine) Start: 07-27-2022 Telephone encounter Yesy sotomayor DO Work Phone: [facility] ([facility]) Comment on above: Referral Information (Consult to BENEFITS OFFICER) Start: 07-18-2022 End: 07-18-2022 Patient encounter procedure Yesy Fernandez DO Work Phone: [facility] Internal [facility] ([facility]) Comment on above: Class 3 severe obesi ty due to excess calories without serious comorbidity with body mass index (BMI) of 40.0 to 44.9 in adult (HCC) (Primary Dx); Cervical cancer screening; Hyperlipidemia, unspecified hyperlipidemia type; Chronic fatigue; Anxiety; Type 2 diabetes mellitus without complication, without long-term current use of insulin ([facility]); Fibromyalgia; Primary hypertension; Chronic migraine without aura without status migrainosus, not intractable; Recurrent major depressive disorder, remission status unspecified ([facility]); PTSD (post-traumatic stress disorder) Start: 07-05-2022 Telephone encounter Maddison box APRN.CNP Work Phone: [facility] Comment on above: Appointment (Needs R /S ) Start: 07-04-2022 End: 07-04-2022 Emergency department patient visit [facility] Start: 07-19-2020 Patient encounter procedure DAVID~[id number] [facility] Start: 07-19-2020 Patient encounter procedure DAVID~[id number] [facility] Procedures Date Procedure Procedure Detail Performing Clinician Start: 08-27-2025 Estimated creatinine clearance No Primary Care Physician Start: 08-27-2025 Plain X-ray abdomen No Primary Care Physician Start: 02-18-2025 Adult depression scr eening assessment Yasmeen Herzog MD Work Phone: Start: 05-02-2024 Mri spinal canal lum bar w/o contrast material Gaby Neumann DO Work Phone: Start: 04-11-2024 Ct head/brain w/o co ntrast material Matilde Watters PA-C Work Phone: Start: 02-27-2024 STREP A MOLECULAR (POC) [facility] Provider Start: 01-25-2024 Ct cervical spine w/ o contrast material Sanjay Talbot MD Work Phone: Start: 01-25-2024 Ct head/brain w/o co ntrast material Sanjay Talbot MD Work Phone: Start: 01-06-2024 CT cervical spine wi thout contrast Start: 01-06-2024 CT of chest and abdomen Start: 01-06-2024 CT of head without contrast Start: 11-08-2023 Radiologic exam ches t single view Sanjay Talbot MD Work Phone: Start: 11-08-2023 Complete blood count with white cell differential, automated Sanjay Talbot MD Work Phone: Start: 11-08-2023 End: 11-08-2023 Comprehensive metabolic panel Sanjay Talbot MD Work Phone: Start: 11-08-2023 Iadna nos amplified probe tq each organism Sanjay Talbot MD Work Phone: Start: 11-08-2023 Quantitative PCR analysis Sanjay Talbot MD Work Phone: Start: 10-06-2023 Iaadiadoo streptococ cus group a Judy Jenkins PA-C Work Phone: Start: 10-06-2023 Quantitative PCR analysis Judy Jenkins PA-C Work Phone: Start: 07-18-2022 Hemoglobin A1c/Hemoglobin.total in Blood Yesy Fernandez DO Work Phone: Start: 07-18-2022 Adult depression scr eening assessment Yesy Fernandez DO Work Phone: Streptococcus pyogen es antigen assay Viral antigen assay Plan of Treatment Date Care Activity Detail Author Start: 02-18-2026 Annual PCP Team Chronic Disease Visit Annual PCP Team Chronic Disease Visit [facility] Start: 02-18-2026 Anxiety Screening Anxiety Screening [facility] Start: 02-18-2026 Covid-19 Vaccine ( season) Covid-19 Vaccine () [facility] Comment on above: Postponed from 07/28/2024 (Declined at t his time) Start: 02-18-2026 Depression Screening Depression Screening [facility] Start: 02-01-2026 Hemoglobin A1c measurement HbA1C [facility] Start: 12-25-2025 Annual PCP Team Chronic Disease Visit Annual PCP Team Chronic Disease Visit [facility] Start: 12-25-2025 BP Controlled (<130/80) BP Controlled (<130/80) [facility] Start: 10-30-2025 End: 10-30-2025 Patient encounter procedure 10/30/2025 1:30 PM [facility] BARIATRIC DEPARTMENT [address] [place], [place] [id number] Fela Gan MD 1 [facility] [address] [place], [place] [id number] 3 mo f/u [facility] Comment on above: 3 mo f/u Start: 10-19-2025 Hemoglobin A1c [facility] Start: 08-27-2025 End: 08-27-2025 [facility] Start: 08-20-2025 Hemoglobin A1c [facility]C [facility] Start: 08-04-2025 End: 11-03-2025 25-hydroxyvitamin D3 [Mass/volume] in Serum or Plasma [facility] Work Phone: Comment on above: Expected: 08/04/2025, Expires: Start: 08-04-2025 End: 11-03-2025 Cobalamin (Vitamin B12) [Mass/volume] in Serum or Plasma [facility] Comment on above: Expected: 08/04/2025, Expires: Start: 08-04-2025 End: 11-03-2025 Hemoglobin A1c in Blood [facility] Comment on above: Expected: 08/04/2025, Expires: Start: 07-28-2025 Influenza vaccination [facility] Start: 06-10-2025 End: 06-10-2025 Patient encounter procedure 06/10/2025 2:45 PM EDT Office Visit Plastic Surgery [address] [facility] [address] [place] [phone] Marisol Avendaño PADarielaC [address] [facility] [address] [place], [place] [address] james alvarez Plastic Surgery Comment on above: james alvarez Start: 05-27-2025 End: 05-27-2025 Patient encounter procedure 05/27/2025 3:45 PM EDT Office Visit Plastic Surgery [address] [facility] [address] [place] [phone] Marisol Avendaño PA-C [address] [facility] [address] [place], [place] [address] Post Op cc Plastic Surgery Comment on above: Post Op cc Start: 05-26-2025 Influenza vaccination Influenza Vaccine (#1) [facility] Comment on above: Postponed from 07/28/2024 (Declined at t his time) Start: 05-23-2025 End: 05-23-2025 Patient encounter procedure 05/23/2025 11:00 AM EDT [facility] BARIATRIC DEPARTMENT 1 [place], [place] [phone] Fela Gan MD [address] [id number] 3MO F/U-vv [facility] Comment on above: 3MO F/U-vv Start: 05-13-2025 End: 05-13-2025 Patient encounter procedure 05/13/2025 11:00 AM EDT Office Visit Plastic Surgery [address] [facility] [address] [place] [phone] Sarah Jacome MD [address] [facility] [address] [place], [place] [phone] Post Op cc Plastic Surgery Comment on above: Post Op cc Start: 05-06-2025 End: 05-06-2025 Patient encounter procedure 05/06/2025 1:30 PM EDT Office Visit Plastic Surgery [address] [facility] [address] [place] [phone] Sarah Jacome MD [address] [place] [address] Post Op - 3 cc Plastic Surgery Comment on above: Post Op - 3 cc Start: 05-06-2025 End: 05-06-2025 Patient encounter procedure 05/06/2025 10:15 AM EDT Office Visit Plastic Surgery [address] [place] [phone] Sarah Jacome MD [address] [place] [address] Post Op - [address] jacome Plastic Surgery Comment on above: Post Op - [address] jacome Start: 04-18-2025 End: 04-18-2025 Patient encounter procedure 04/18/2025 2:30 PM EDT Office Visit Plastic Surgery [address] [place] [phone] Marisol Avendaño PA-C [address] [place] [address] Post Op - 2 cc Plastic Surgery Comment on above: Post Op - 2 cc Start: 04-17-2025 End: 04-17-2025 Patient encounter procedure 04/17/2025 9:20 AM EDT Office Visit Plastic Surgery [address] [place] [phone] Bennie Pichardo APRN.PARTY PLAN SALES DIRECTOR [address] [place] [address] Post Op - 2 cc Plastic Surgery Comment on above: Post Op - 2 cc Start: 04-04-2025 End: 04-04-2025 Patient encounter procedure 04/04/2025 1:30 PM EDT Office Visit Plastic Surgery [address] [place] [phone] Marisol Avendaño PA-C [address] [place] [address] Post Op - 1 cc Plastic Surgery Comment on above: Post Op - 1 cc Start: 04-03-2025 BP Controlled (<130/80) BP Controlled (<130/80) [facility] Start: 03-27-2025 End: 03-27-2025 [facility] Comment on above: REDUCTION BREAST REDUCTION BREAST SABA ATERAL Start: 03-27-2025 End: 03-27-2025 Reduction mammaplasty [facility] Start: 03-27-2025 Subsequent hospital visit by physician [facility] Comment on above: Post-operative state [Z98.890], Excess s kin [L98.7] Post-operative state [Z98.890] Start: 03-21-2025 Annual PCP Team Chronic Disease Visit Annual PCP Team Chronic Disease Visit [facility] Start: 03-20-2025 End: 03-20-2025 ambulatory Pre Surgical Testing Comment on above: REDUCTION BREAST REDUCTION BREAST SABA ATERAL Start: 03-03-2025 End: 03-03-2025 Patient encounter procedure Neurology Comment on above: niq S06.9XAD (ICD-10-CM) - Traumatic brain injury, with unknown loss of consciousness status, subsequent encounter Start: 02-20-2025 Hemoglobin A1c measurement HbA1C [facility] Start: 02-18-2025 End: 05-20-2025 Lipid 1996 panel - Serum or Plasma LIPID PANEL, FASTING Lab Routine Controlled type 2 diabetes mellitus without complication, without long-term current use of insulin (HCC) Expected: 02/18/2025, Expires: 05/20/2025 [facility] Comment on above: Expected: 02/18/2025, Expires: Start: 02-18-2025 End: 05-20-2025 Microalbumin/Creatinine [Mass Ratio] in Urine ALBUMIN/CREATININE RATIO, URINE Lab Routine Controlled type 2 diabetes mellitus without complication, without long-term current use of insulin (HCC) Expected: 02/18/2025, Expires: 05/20/2025 [facility] Work Phone: Comment on above: Expected: 02/18/2025, Expires: Start: 02-18-2025 End: 02-18-2025 Patient encounter procedure [facility] ([facility]) Comment on above: Annual Physical abdominal bugle conc caren kw Start: 02-12-2025 End: 02-12-2025 Patient encounter procedure 02/12/2025 1:00 PM EDT [facility] BARIATRIC DEPARTMENT 1 [place] [address] Fela Gan MD 1 [facility] [address] [place], [place] [phone] 3 mo f/u [facility] BARI[facility]IC DEPARTMENT Comment on above: 3 mo f/u Start: 01-15-2025 Annual PCP Team Chronic Disease Visit Annual PCP Team Chronic Disease Visit [facility] Start: 01-05-2025 Subsequent hospital visit by physician 01/05/2025 Hospital Encounter [facility] 1 [place] [address] Sarah Jacome MD [address] [facility] [address] [place] [address] Post-operative state [Z98.890], Excess skin [L98.7] [facility] Comment on above: Post-operative state [Z98.890], Excess s kin [L98.7] Start: 12-25-2024 End: 12-25-2024 Patient encounter procedure 12/25/2024 11:20 AM EST Office Visit [facility] ([facility]) [address] [facility] 5[address] [place] [address] Patricia Roy DO 1 [place], [place] [phone] Stomach bulge [facility] ([facility]) Comment on above: Stomach bulge Start: 12-01-2024 Subsequent hospital visit by physician 12/01/2024 Hospital Encounter [facility] 1 [place] [address] Sarah Jacome MD [address] [place] [address] Post-operative state [Z98.890] [facility] Comment on above: Post-operative state [Z98.890] Start: 11-21-2024 End: 11-21-2024 Patient encounter procedure 11/21/2024 8:40 AM EST Office Visit [facility] ([facility]) [address] [facility] [address] [place] [address] Yasmeen Herzog MD 1 [place] [address] LUQ abdominal bulge and pain [facility] ([facility]) Comment on above: LUQ abdominal bulge and pain Start: 11-04-2024 End: 11-04-2024 Patient encounter procedure 11/04/2024 2:00 PM EST Office Visit OB/Gynecology [address] [place] [address] Georgiana Sellers APRN.PARTY PLAN SALES DIRECTOR [address] [place] [address] annual- pap smear OB/Gynecology Comment on above: annual- pap smear Start: 10-31-2024 End: 10-31-2024 Patient encounter procedure 10/31/2024 3:30 PM EST [facility] BARIATRIC DEPARTMENT 1 [place] [address] Fela Gan MD 1 [facility] [address] [place], [place] [phone] 3 mo f/u [facility] BARIATRIC DEPARTMENT Comment on above: 3 mo f/u Start: 09-17-2024 End: 09-17-2024 Patient encounter procedure 09/17/2024 2:30 PM EDT Office Visit Plastic Surgery [address] [place] [phone] Sarah Jacome MD [address] [phone] Post Op (07/24) Plastic Surgery Comment on above: Post Op (07/24) Start: 09-02-2024 End: 09-02-2024 Patient encounter procedure 09/02/2024 1:45 PM EDT Office Visit [facility] Obstetrics & Gynecology [address] [place] [address] Ranjana Wright DO [address] [place] [address] ETHYLENE OXIDE PANELBOARD OPERATOR-Annual [facility] Obstetrics & Gynecology Comment on above: ETHYLENE OXIDE PANELBOARD OPERATOR-Annual Start: 08-20-2024 End: 08-20-2024 Patient encounter procedure 08/20/2024 11:00 AM EDT Office Visit Plastic Surgery [address] [phone] Sarah Jacome MD [address] [address] Post Op (sx 06/28) Plastic Surgery Comment on above: Post Op (sx 06/28) Start: 08-09-2024 End: 08-09-2024 Patient encounter procedure 08/09/2024 1:30 PM EDT Office Visit [facility] General Plastic Surgery [address] [address] Marisol Avendaño PA-C [address] [address] Post Op (sx 07/24) [facility] Surgery Comment on above: Post Op (sx 07/24) Start: 08-02-2024 End: 08-02-2024 Patient encounter procedure 08/02/2024 1:00 PM EDT Office Visit [facility] Plastic Surgery [address] [address] Marisol Avendaño PA-C [address] [facility] [address] [place] [address] Post Op (sx 07/24) [facility] Comment on above: Post Op (sx 07/24) Start: 07-28-2024 Covid-19 Vaccine ( season) Covid-19 Vaccine ( season) [facility] [facility] Start: 07-28-2024 Covid-19 Vaccine ( season) Covid-19 Vaccine () [facility] Start: 07-28-2024 Influenza vaccination [facility] Start: 07-26-2024 End: 10-25-2024 25-hydroxyvitamin D3 [Mass/volume] in Serum or Plasma VITAMIN D 25 HYDROXY Lab Routine Type 2 diabetes mellitus without complication, without long-term current use of insulin (HCC) Class 1 obesity Expected: 07/26/2024, Expires: 10/25/2024 [facility] Comment on above: Expected: 07/26/2024, Expires: Start: 07-26-2024 End: 10-25-2024 Cobalamin (Vitamin B12) [Mass/volume] in Serum or Plasma VITAMIN B12 Lab Routine Type 2 diabetes mellitus without complication, without long-term current use of insulin (HCC) Class 1 obesity Expected: 07/26/2024, Expires: 10/25/2024 [facility] Comment on above: Expected: 07/26/2024, Expires: Start: 07-26-2024 End: 10-25-2024 Comprehensive metabolic 2000 panel - Serum or Plasma COMPREHENSIVE METABOLIC PANEL Lab Routine Type 2 diabetes mellitus without complication, without long-term current use of insulin (HCC) Class 1 obesity Expected: 07/26/2024, Expires: 10/25/2024 [facility] Work Phone: Comment on above: Expected: 07/26/2024, Expires: Start: 07-26-2024 End: 10-25-2024 Hemoglobin A1c in Blood HEMOGLOBIN A1C Lab Routine Type 2 diabetes mellitus without complication, without long-term current use of insulin (HCC) Class 1 obesity Expected: 07/26/2024, Expires: 10/25/2024 [facility] Comment on above: Expected: 07/26/2024, Expires: Start: 07-26-2024 End: 07-26-2024 Patient encounter procedure 07/26/2024 8:30 AM EDT [facility] BARIATRIC DEPARTMENT [address] [place] [address] Fela Gan MD [address] [facility] [address] [place] [address] 3 Mo F/U [facility] BARIATRIC DEPARTMENT Comment on above: 3 Mo F/U Start: 07-24-2024 End: 07-24-2024 Admission to same day surgery center 07/24/2024 11:05 AM EDT - 07/24/2024 2:40 PM EDT Surgery HIRA MONROE [address] [place] [address] Sarah Jacome MD [address] [place] [address] ABDOMINOPLASTY UMBILICAL TRANSPOSITION AND FASCIAL PLICATION HIRA MORNOE Comment on above: ABDOMINOPLASTY UMBILICAL TRANSPOSITION A ND FASCIAL PLICATION Start: 07-24-2024 End: 07-24-2024 Excision excessive skin & subq tissue abdomen ABDOMINOPLASTY UMBILICAL TRANSPOSITION AND FASCIAL PLICATION Excess skin 07/24/2024 11:05 AM EDT [facility] Start: 07-24-2024 End: 07-24-2024 Excision skin abd infraumbilical panniculectomy PANNICULECTOMY Excess skin 07/24/2024 11:05 AM EDT [facility] Start: 07-24-2024 Subsequent hospital visit by physician HIRA MONROE Comment on above: Excess skin [L98.7] Start: 07-20-2024 ANNUAL PCP TEAM CHRONIC DISEASE VISIT ANNUAL PCP TEAM CHRONIC DISEASE VISIT [facility] Start: 07-20-2024 BP CONTROLLED (<130/80) BP CONTROLLED (<130/80) [facility] Start: 07-16-2024 End: 07-16-2024 ambulatory Pre Surgical Testing Comment on above: reverify ins 06/27 Reg'd PST 07/16 Start: 07-09-2024 End: 07-09-2024 Patient encounter procedure 07/09/2024 3:45 PM EDT Office Visit Neurology [address] [place] [address] Matilde Watters PA-C [address] [place], [place] [phone] 3 month follow up Neurology Comment on above: 3 month follow up Start: 06-25-2024 End: 06-25-2024 Patient encounter procedure Plastic Surg jose Comment on above: Pre Op (sx date 07/24) Start: 06-16-2024 Subsequent hospital visit by physician 06/16/2024 Hospital Encounter Surgery Center [address] [address] Westley Lee MD [address] [place], [place] [id number] [facility] [L30.4] [facility] Comment on above: [facility] [L30.4] Start: 05-21-2024 End: 05-21-2024 Patient encounter procedure 05/21/2024 10:30 AM EDT Office Visit Plastic Surgery [address] [phone] Sarah Jacome MD [address] [phone] Consult for removal of access abdomen skin Plastic Surgery Comment on above: Consult for removal of access abdomen sk in Start: 05-13-2024 End: 05-13-2024 Patient encounter procedure 05/13/2024 4:20 PM EDT [facility] Internal Medicine [facility] ([facility]) [address] [facility] [address]LOOR [place], [place] [id number] Yesy Fernandez DO 1 [place], [place] [phone] discuss MRI results and treatment [facility] Internal Medicine [facility] ([facility]) Comment on above: discuss MRI results and treatment Start: 05-07-2024 End: 05-07-2024 Patient encounter procedure 05/07/2024 9:30 AM EDT Office Visit Plastic Surgery [address] [facility] [address] [place] [phone] Sarah Jacome MD [address] [facility] [address] [place], [place] [phone] consult Excess skin of abdomen Plastic Surgery Comment on above: consult Excess skin of abdomen Start: 05-02-2024 End: 05-02-2024 Patient encounter procedure 05/02/2024 10:00 AM EDT Appointment Radiology [address] [place] [place] [phone] [facility] Comment on above: [facility] Start: 04-23-2024 End: 04-23-2024 Patient encounter procedure 04/23/2024 2:45 PM EDT Office Visit [facility] BARIATRIC DEPARTMENT [address] [place] [address] Fela Gan MD [address] [address] 3 Mo F/U - Body Comp. [facility] BARIATRIC DEPARTMENT Comment on above: 3 Mo F/U - Body Comp. Start: 04-11-2024 End: 04-11-2024 Patient encounter procedure 04/11/2024 1:20 PM EDT Appointment Cat Scan [address] [place] [phone] CT BRAIN WO IVCON Cat Scan Comment on above: CT BRAIN WO IVCON Start: 04-04-2024 End: 04-04-2024 Patient encounter procedure 04/04/2024 8:20 AM EDT Appointment Cat Scan [address] [place], [place] [phone] Concussion with loss of consciousness, with loc of unspecified duration, initial encounter [S06.0X9A] Cat Scan Comment on above: Concussion with loss of consciousness, w ith loc of unspecified duration, initial encounter [S06.0X9A] Start: 01-24-2024 Hemoglobin A1c measurement [facility]C [facility] Start: 01-24-2024 Hemoglobin A1c/Hemoglobin.total in Blood HBA1C [facility] Start: 01-15-2024 End: 04-15-2024 Urinalysis complete panel - Urine URINALYSIS WITH MICROSCOPIC, REFLEX CULTURE Lab Routine Dysuria Expected: 01/15/2024, Expires: 04/15/2024 [facility] Work Phone: Comment on above: Expected: 01/15/2024, Expires: Start: 01-07-2024 [facility] Start: 01-05-2024 End: 04-05-2024 25-hydroxyvitamin D3 [Mass/volume] in Serum or Plasma VITAMIN D 25 HYDROXY Lab Routine Type 2 diabetes mellitus without complication, without long-term current use of insulin (HCC) Vitamin D deficiency Class 3 severe obesity with serious comorbidity in adult, unspecified BMI, unspecified obesity type (HCC) Expected: 01/05/2024, Expires: 04/05/2024 [facility] Work Phone: Comment on above: Expected: 01/05/2024, Expires: Start: 01-05-2024 End: 04-05-2024 Cobalamin (Vitamin B12) [Mass/volume] in Serum or Plasma VITAMIN B12 BLOOD Lab Routine Type 2 diabetes mellitus without complication, without long-term current use of insulin (HCC) Vitamin D deficiency Class 3 severe obesity with serious comorbidity in adult, unspecified BMI, unspecified obesity type (HCC) Expected: 01/05/2024, Expires: 04/05/2024 [facility] Work Phone: Comment on above: Expected: 01/05/2024, Expires: Start: 01-05-2024 End: 04-05-2024 Comprehensive metabolic 2000 panel - Serum or Plasma COMP METABOLIC PANEL Lab Routine Type 2 diabetes mellitus without complication, without long-term current use of insulin (HCC) Vitamin D deficiency Class 3 severe obesity with serious comorbidity in adult, unspecified BMI, unspecified obesity type (HCC) Expected: 01/05/2024, Expires: 04/05/2024 [facility] Work Phone: Comment on above: Expected: 01/05/2024, Expires: Start: 01-05-2024 End: 04-05-2024 Hemoglobin A1c in Blood HGB A1C Lab Routine Type 2 diabetes mellitus without complication, without long-term current use of insulin (HCC) Vitamin D deficiency Class 3 severe obesity with serious comorbidity in adult, unspecified BMI, unspecified obesity type (HCC) Expected: 01/05/2024, Expires: 04/05/2024 [facility] Work Phone: Comment on above: Expected: 01/05/2024, Expires: Start: 11-27-2023 Behavioral Health Screening Behavioral Health Screening [facility] Start: 11-27-2023 Depression Assessment Depression Assessment [facility] Start: 09-28-2023 ANNUAL PCP TEAM CHRONIC DISEASE VISIT ANNUAL PCP TEAM CHRONIC DISEASE VISIT [facility] Start: 09-28-2023 Urine microalbumin profile [facility] Comment on above: Postponed from 2002 (Declined at t his time) Start: 09-22-2023 [facility] Start: 07-28-2023 COVID-19 VACCINE ( season) COVID-19 VACCINE ( season) [facility] Start: 07-28-2023 Influenza vaccination [facility] Start: 07-20-2023 End: 09-19-2023 25-hydroxyvitamin D3 [Mass/volume] in Serum or Plasma VITAMIN D 25 HYDROXY Lab Routine Vitamin D deficiency Recurrent major depressive disorder, remission status unspecified (HCC) Expected: 07/20/2023, Expires: 09/19/2023 [facility] Work Phone: Comment on above: Expected: 07/20/2023, Expires: Start: 07-18-2023 Adult depression screening assessment DEPRESSION SCREENING [facility] Start: 07-18-2023 COVID-19 VACCINE (#1) COVID-19 VACCINE (#1) [facility] Comment on above: Postponed from 1983 (Declined at t his time) Start: 2023 Lipid panel LIPID SCREENING [facility] Start: 2023 Mammography [facility] Start: 2023 Screening for malignant neoplasm of breast [facility] Start: 05-26-2023 Influenza vaccination INFLUENZA (#1) [facility] Comment on above: Postponed from 07/28/2022 (Declined at t his time) Start: 04-09-2023 Hemoglobin A1c/Hemoglobin.total in Blood HBA1C [facility] Start: 03-17-2023 End: 05-17-2023 Choriogonadotropin ( test) [Presence] in Urine HCG QUAL UR Lab Routine Class 3 severe obesity with serious comorbidity in adult, unspecified BMI, unspecified obesity type (HCC) Expected: 03/17/2023, Expires: 05/17/2023 [facility] Work Phone: Comment on above: Expected: 03/17/2023, Expires: 3 Start: 03-17-2023 End: 05-17-2023 Comprehensive metabolic 2000 panel - Serum or Plasma COMP METABOLIC PANEL Lab Routine Class 3 severe obesity with serious comorbidity in adult, unspecified BMI, unspecified obesity type (HCC) Uncontrolled type 2 diabetes mellitus with hyperglycemia (HCC) Expected: 03/17/2023, Expires: 05/17/2023 [facility] Work Phone: Comment on above: Expected: 03/17/2023, Expires: 3 Start: 03-17-2023 End: 05-17-2023 Hemoglobin A1c in Blood HGB A1C Lab Routine Class 3 severe obesity with serious comorbidity in adult, unspecified BMI, unspecified obesity type (HCC) Uncontrolled type 2 diabetes mellitus with hyperglycemia (HCC) Expected: 03/17/2023, Expires: 05/17/2023 [facility] Work Phone: Comment on above: Expected: 03/17/2023, Expires: 3 Start: 03-11-2023 X-ray of soft tissue of neck Neck for Soft Tissue [facility] Start: 03-11-2023 XR Neck Views [facility] Start: 01-11-2023 End: 03-13-2023 Lipid 1996 panel - Serum or Plasma LIPID PANEL BASIC Lab Routine Uncontrolled type 2 diabetes mellitus with hyperglycemia (HCC) Expected: 01/11/2023, Expires: 03/13/2023 [facility] Work Phone: Comment on above: Expected: 01/11/2023, Expires: 3 Start: 11-27-2022 DEPRESSION ASSESSMENT DEPRESSION ASSESSMENT [facility] Start: 10-22-2022 End: 12-22-2022 Basic metabolic 2000 panel - Serum or Plasma BASIC METABOLIC PNL Lab Routine Strain of lumbar region, initial encounter Expected: 10/22/2022, Expires: 12/22/2022 [facility] Work Phone: Comment on above: Expected: 10/22/2022, Expires: 3 Start: 10-18-2022 Hemoglobin A1c/Hemoglobin.total in Blood HBA1C [facility] Start: 09-28-2022 End: 11-28-2022 Basic metabolic 2000 panel - Serum or Plasma BASIC METABOLIC PNL Lab Routine Primary hypertension Expected: 09/28/2022, Expires: 11/28/2022 [facility] Work Phone: Comment on above: Expected: 09/28/2022, Expires: 3 Start: 09-28-2022 End: 11-28-2022 CBC panel - Blood by Automated count CBC Lab Routine Primary hypertension Expected: 09/28/2022, Expires: 11/28/2022 [facility] Work Phone: Comment on above: Expected: 09/28/2022, Expires: 3 Start: 09-28-2022 End: 11-28-2022 Hemoglobin A1c in Blood HGB A1C Lab Routine Type 2 diabetes mellitus without complication, without long-term current use of insulin (HCC) Expected: 09/28/2022, Expires: 11/28/2022 [facility] Work Phone: Comment on above: Expected: 09/28/2022, Expires: 3 Start: 09-28-2022 End: 11-28-2022 Lipid 1996 panel - Serum or Plasma LIPID PANEL BASIC Lab Routine Primary hypertension Expected: 09/28/2022, Expires: 11/28/2022 [facility] Work Phone: Comment on above: Expected: 09/28/2022, Expires: 3 Start: 07-28-2022 Influenza vaccination INFLUENZA (#1) [facility] Start: 07-18-2022 End: 09-17-2022 Lipid 1996 panel - Serum or Plasma LIPID PANEL BASIC Lab Routine Hyperlipidemia, unspecified hyperlipidemia type Expected: 07/18/2022, Expires: 09/17/2022 [facility] Work Phone: Comment on above: Expected: 07/18/2022, Expires: 2 Start: 07-18-2022 End: 09-17-2022 Thyrotropin [Units/volume] in Serum or Plasma TSH BLD Lab Routine Chronic fatigue Expected: 07/18/2022, Expires: 09/17/2022 [facility] Work Phone: Comment on above: Expected: 07/18/2022, Expires: 2 Start: 07-04-2022 [facility] Work Phone: Start: 11-27-2021 DEPRESSION ASSESSMENT DEPRESSION ASSESSMENT [facility] Start: 2013 HPV TESTING HPV TESTING [facility] Start: 2013 Screening for malignant neoplasm of cervix HPV Testing [facility] Start: 2010 HPV Vaccine (1 - 3-dose SCDM series) HPV Vaccine (1 - 3-dose SCDM series) [facility] Start: 2004 PAP TESTING PAP TESTING [facility] Start: 2004 Screening for malignant neoplasm of cervix [facility] Start: 2002 Hepatitis B vaccination HEP B VACCINE (1 of 3 - 19+ 3-dose series) [facility] Start: 2002 Pneumococcal vaccination Pneumococcal Vaccine (1 of 2 - PCV) [facility] Start: 2002 Third diphtheria, tetanus and acellular pertussis (DTaP) vaccination TDAP (ADULT) [facility] Start: 2002 Urine microalbumin profile [facility] Start: 2001 Anxiety Screening Anxiety Screening [facility] Start: 2001 BP CONTROLLED (<130/80) BP CONTROLLED (<130/80) [facility] Start: 2001 Depression Screening Depression Screening [facility] Start: 2001 Hepatitis B surface antibody level LDL CHOLESTEROL [facility] Start: 2001 HEPATITIS C SCREENING HEPATITIS C SCREENING [facility] Start: 2001 HIV SCREENING HIV SCREENING [facility] Start: 1998 HIV screening HIV SCREENING DISCUSSION [facility] Start: 1995 Adult depression screening assessment DEPRESSION SCREENING [facility] Start: 1993 3 comp foot exam completed DIABETIC FOOT EXAM [facility] Start: 1993 Diabetic foot examination Diabetic Foot Exam [facility] Start: 1993 Glaucoma screening Dilated Retinal Exam [facility] Start: 1993 Hepatitis B screening URINE ALBUMIN:CREATININE RATIO [facility] Start: 1993 Hepatitis C antibody, confirmatory test DILATED RETINAL EXAM [facility] Start: 1989 PNEUMOCOCCAL (1 - PCV) PNEUMOCOCCAL (1 - PCV) [facility] Start: 1989 Pneumococcal vaccination [facility] Start: 1983 COVID-19 VACCINE (#1) COVID-19 VACCINE (#1) [facility] Start: 1983 HEPATITIS B (1 of 3 - 3-dose series) HEPATITIS B (1 of 3 - 3-dose series) [facility] Start: 1983 Hepatitis B vaccination HEP B VACCINE (1 of 3 - 3-dose series) [facility] Start: 1983 Hepatitis C screening HEPATITIS C VIRUS SCREENING [facility] Start: 1983 Tetanus vaccination TETANUS [facility] COVID & INFLUENZA A/ B & RSV NAAT, ROUTINE COVID & INFLUENZA A/B & RSV NAAT, ROUTINE Microbiology Routine URI, acute Ordered: 02/27/2024 [facility] Work Phone: Comment on above: Ordered: 02/27/2024 End: 05-03-2025 CT Head WO contrast CT BRAIN WO IVCON Radiology Routine Concussion with loss of consciousness, with loc of unspecified duration, initial encounter 1 Occurrences starting 04/03/2024 until 05/03/2025 [facility] Work Phone: Comment on above: 1 Occurrences starting 04/03/2024 until 05/03/2025 Excision excessive s kin & subq tissue abdomen ABDOMINOPLASTY UMBILICAL TRANSPOSITION AND FASCIAL PLICATION Excess skin [facility] Excision skin abd infraumbilical panniculectomy PANNICULECTOMY Inter[facility] Rash Loose skin Excess skin of abdominal wall PLASTICS A60 Excision skin abd infraumbilical panniculectomy PANNICULECTOMY Excess skin [facility] End: 04-02-2026 MR Brain WO contrast MRI BRAIN WO IVCON Radiology Routine Traumatic brain injury, with unknown loss of consciousness status, subsequent encounter Post-concussion headache Memory dysfunction following head trauma 1 Occurrences starting 03/03/2025 until 04/02/2026 [facility] Work Phone: Comment on above: 1 Occurrences starting 03/03/2025 until 04/02/2026 End: 04-20-2025 MR Lumbar spine WO contrast MRI LUMBAR SPINE WO IVCON Radiology Routine 1 Occurrences starting 03/21/2024 until 04/20/2025 [facility] Work Phone: Comment on above: 1 Occurrences starting 03/21/2024 until 04/20/2025 PAP TEST PAP TEST Lab [facility] Screening for cervical cancer Ordered: 02/18/2025 [facility] Comment on above: Ordered: 02/18/2025 End: 10-28-2023 PAP TITRATION PSG (CPAP, BIPAP, ASV) PAP TITRATION PSG (CPAP, BIPAP, ASV) Procedures Routine KOURTNEY (obstructive sleep apnea) 1 Occurrences starting 09/28/2022 until 10/28/2023 [facility] Work Phone: Comment on above: 1 Occurrences starting 09/28/2022 until 10/28/2023 Patient Education [facility] Work Phone: Patient referral [facility] Work Phone: Reduction mammaplasty REDUCTION BREAST BILATERAL Post-operative state AK OR Reduction mammaplasty REDUCTION BREAST Post-operative state Excess skin [place] OR End: 10-06-2023 [facility] Comment on above: One Time for 1 Occurrences starting 09/27 until 10/06/2023 [facility] Payers Date Payer Category Payer Self-pay [id number] 2023 Unknown [id number] 2022 Private Health Insurance [id number] 2022 Medicaid [id number] 2022 Unknown [id number] 2022 Medicaid [id number] 1983 Unknown [id number] 1983 Unknown [id number] 1983 Unknown [id number] 1983 Unknown [id number] Medicaid [id number] Unknown [id number] Unknown [id number] Social History Date Type Detail Facility [facility] Work Phone: Start: 07-04-2022 End: 01-06-2024 Tobacco smoking status COIS Unknown if ever smoked [facility] Start: 1985 Sex Assigned At Female [facility] Start: 1985 Sex Assigned At Not on file [facility] Start: 06-25-2022 End: 09-28-2022 Exposure to SARS-CoV-2 (event) Not sure [facility] Start: 07-18-2022 End: 07-16-2024 Tobacco smoking status NHIS Ex-smoker [facility] Start: 11-27-2010 End: 11-27-2012 History of tobacco use Current smoker [facility] Start: 11-27-2010 End: 11-27-2012 History of tobacco use Cigarette Smoker [facility] Start: 07-18-2022 End: 07-16-2024 Tobacco use and exposure Smokeless tobacco non-user [facility] Start: 01-10-2023 End: 05-06-2025 Alcohol intake Ex-drinker (finding) [facility] Start: 03-17-2023 End: 06-22-2023 History of Social function [facility] Work Phone: Start: 03-17-2023 End: 06-22-2023 Tobacco use panel [facility] Work Phone: Start: 06-30-2022 Adult Depression Screening Assessment 0 [facility] Work Phone: Start: 07-16-2022 Gender identity Identifies as female gender (finding) [facility] Start: 07-16-2022 Sexual orientation Heterosexual (fin ding) [facility] Start: 10-06-2023 End: 08-27-2025 Tobacco smoking status NHIS Never smoked tobacco [facility] Start: 10-06-2023 End: 01-25-2024 Alcohol intake Lifetime non-drinker (finding) [facility] NEGATED: Highlighted row [facility] NEGATED: Highlighted rowStart: NINF History of tobacco use Passive smoker [facility] [employer] [facility] Mental Status Date Assessment Result Facility 08-27-2025 Cognitive function Level Of Consciousness Awake [facility] Work Phone: 09-22-2023 Cognitive function Level Of Cons ciousness Awake;Alert;Appropriate;Follow s Commands [facility] Work Phone: Clinical Notes 07-05-2022 to 09-30-2025 Note Date & Type Note Facility 09-30-2025 Note HNO ID: [id number] Author: ANGELO HINTON MD Service: ? Author Type: Physician Type: Progress Notes Filed: 09/30/2025 16:41 Note Text: Attending Note I discussed with resident. The patient was not seen or examined by the attending. I reviewed the resident's note. I agree with the resident's assessment and plan unless otherwise noted. Signature: Angelo Hinton MD Date: 09/30/2025. Time: 9:29 AM [facility] 09-30-2025 Note HNO ID: [id number] Author: PATRICIA ALVAREZ DO Service: ? Author Type: Resident Type: Progress Notes Filed: 09/30/2025 16:41 Note Text: [facility] Patricia Alvarez DO ASSESSMENT/PLAN: 1. History of bilateral breast reduction surgery - ICD9: V45.89, ICD10: Z98.890 (primary diagnosis) Suspect pain and tenderness is related to postsurgical changes at this time with low suspicion for underlying infection. Given significant past family history of breast cancer, will obtain breast ultrasound. Referral placed to high risk breast center. Referral for plastic surgery for second opinion ordered. - CONSULT TO PLASTIC SURGERY - US BREAST LTD LEFT - CONSULT TO BREAST CTR HEREDITARY HIGH RISK 2. Breast pain, left - ICD9: 611.71, ICD10: N64.4 Encouraged patient to utilize high support sports bras when exercising and at night to maximize support and minimize associated pain. Encouraged patient to continue OTC medication use for pain/swelling, and to continue using warm compresses. - CONSULT TO PLASTIC SURGERY - US BREAST LTD LEFT 3. Family history of breast cancer - ICD9: V16.3, ICD10: Z80.3 Referral to hereditary high risk breast center sent. - CONSULT TO PLASTIC SURGERY - US BREAST LTD LEFT - CONSULT TO BREAST CTR HEREDITARY HIGH RISK Patient to return to clinic as needed for worsening symptoms. Patient should return to clinic in approx 4 months for annual examination. Patricia Alvarez DO SUBJECTIVE: Cindy Alanis is a 40 year old female here today for breast pain. Patient reports approximately 2-month history of left-sided breast pain. Notes that she had a breast reduction in March which was botched. Notes that shortly after her initial operation, she developed a hole in her skin which was large enough to fit her hand in, which required return to clinic and suturing. Notes that she was cleared to exercise in May, but delayed exercising until not mid-late July, when she noticed a ripping/pulling sensation with associated swelling and significant tenderness. Notes sensation of something poking her. Notes that her scar is starting to stretch out as well despite adequate protein intake. Has tried reduction in her activity level, OTC medications, warm compresses, and avoiding underwire bras with minimal improvement. Notes that she does not wish to go back to the previous plastic surgeon due to concerns over the operation but is agreeable to referral for second opinion. Patient denies any reopening of old wounds, erythema, or overt drainage from the area. Of note, patient has a significant family history of breast cancer, but has not undergone genetic testing. Paternal grandmother BC x3, paternal aunt x2, maternal aunt at early ages. Had a cousin of breast cancer in her 20s. Patient without any overt breast lumps or bumps that she has been aware of. Mammogram recently ordered, the patient currently not wishing to pursue mammogram due to acute breast tenderness. The history is provided by the patient and medical records. PAST MEDICAL HISTORY Diagnosis Date Anxiety Depression Diabetes mellitus (HCC) Hypertension Obesity Post-operative state Spinal stenosis Traumatic brain injury (HCC) 12/2023 PAST SURGICAL HISTORY Procedure Laterality Date SECTION HX x3 HYSTERECTOMY Partial PANNICULECTOMY 06/2024 SOCIAL HISTORY[1] FAMILY HISTORY Problem Relation Age of Onset Osteoporosis Mother Hypertension Father Diabetes Father PAIN EVALUATION 09/30/2025 0859 Pain Level: 4 Pain Location: Breast-Left Description: Sharp;Stabbing Duration Amount of Time: 2 Duration Units: Months Frequency: Continuous Comments: surgery march 2025 ALLERGIES Allergen Reactions Dihydroaminopryidin* Rash, Hives, Diarrhea, Itching Hydrocodone Rash, Hives Wellbutrin [Bupropi* Intolerance Suicidal thoughts Erythromycin Rash, Diarrhea, Itching Oxycodone-Acetamino* Rash, Diarrhea, Vomiting Sulfa (Sulfonamide * Rash, Diarrhea Sulfamethoxazole-Tr* Rash, Diarrhea, Itching Trulicity [Dulaglut* Rash, Other: See Comments KNOTS UNDER SKIN Cymbalta [Duloxetin* Rash Lethargic Azithromycin Diarrhea Medication List prior to visit Current Outpatient Medications Medication Sig tirzepatide (MOUNJARO) 5 mg/0.5 mL pen injector Inject 5 mg subcutaneously one time a week for 28 days. metoprolol succinate ER (TOPROL XL) 100 mg Take 1 tablet by mouth daily at bedtime. metFORMIN ER (GLUCOPHAGE XR) 500 mg 24 hr tablet Take 2 tablets by mouth daily with breakfast. (Patient taking differently: Take 500 mg by mouth daily with breakfast.) triamcinolone (KENALOG) 0.025 % ointment Apply to affected areas two times a day as needed. No current facility-administered medications for this visit. I have confirmed and edited as necessary the chief complaint, medications, past medical, family and social histories. Review of Systems Constitutional (more content not included)... [facility] 08-27-2025 Discharge summary [facility] 08-27-2025 Radiology Diagnostic study note [facility] Imaging Services [address] [place], [place] [address] Acute Abdomen Inc Chest MR#: [id number] Acct: [id number] Name: CINDY ALANIS Rep #: [id number] : 1985 F 40 From: Salina Monae MD PCP: Care Physician,No Primary Status: REG ER Study:Acute Abdomen Inc Chest Date of Exam: 08/27/25 Exam# [id number] Ordering Dr: Jessica Henao DO PROCEDURE: ACUTE ABDOMEN INC CHEST 08/27/2025 REASON FOR EXAM: PAIN TECHNIQUE: Procedure Code: RADABDCA Modality: DX Procedure: ACUTE ABDOMEN INC CHEST COMPARISON: Previous CT from 2023 FINDINGS: Hardware: None Heart: The heart size is normal. Lungs: The lungs are clear. Bowel gas: No evidence of ileus or obstruction retained stool noted throughout the colon Free air: None Calcifications: No suspicious calcifications Bones: Mild degenerative bony changes Other: RAD/Acute Abdomen Inc Chest IMPRESSION: No acute pulmonary process No acute abdominal or pelvic process Retained stool Reading Location: [facility] CC: Dr. Jessica Henao DO; No Primary Care Physician ~ Insurance Advisor: Signed [facility] 08-27-2025 Discharge summary Note Date/Time August 27, 2025 3:54pm [facility] Medical Records Department [address] [place] [address] Emergency Department Summary 08/27/25 MR#: [id number] Acct: [id number] Name: CINDY ALANIS Rep #:[id number] : [id number] 40 From: Jessica Woodall PCP: Care Physician,No Primary Status :DEP ER Location: ED HPI History of Present Illness Chief Complaint: Foreign Body Informant: patient Onset/Context/Timing Onset: Today Context: Sudden Onset Timing: Continuous Quality: Sharp Location: Epigastric area Worsened by: Movement, drinking Relieved by: Nothing Narrative Narrative: Patient presents with upper abdominal pain that began today. Patient states shedrank a protein shake and noted some broken pieces of plastic in the shake. Patient thinks she may have drank some of the plastic pieces. Patient states her pain is sharp. Patient states the pain is over the epigastric area. Patient states her pain is worse with any movement or with drinking water. Patient states nothing makes it better. Patient denies any fevers or chills. Patient denies any nausea or vomiting. Patient does admit to some pain in her throat because she thinks the piece of plastic may have scratched her throat. [facility] Medical History (Updated 08/27/25 @ 15:[address] Jessica Henao DO) Hypertension Other group home (current) drug therapy Migraine without aura, not intractable, without status migrainosus Major depressive disorder, recurrent, moderate Mixed hyperlipidemia Vitamin D deficiency, unspecified Type 2 diabetes mellitus with hyperglycemia Fibromyalgia Physical exam, pre-employment Home Medications ?Medication ?Instructions ?Recorded ?Last Taken ?Type metformin 1,000 mg tablet 1,000 mg PO DAILY 07/04/22 U nknown History metoprolol succinate 100 mg 100 mg PO DAILY 07/04/22 U nknown History capsule sprinkle, ext. release 24 hr tirzepatide 12.5 mg/0.5 mL 2.5 mg subcut QWEEK 3 Unknown History subcutaneous pen injector (Mounjaro) Allergy/AdvReac Type Severity Reaction Status Date / Time Dihydroaminopryidine Allergy Rash Verified 08/27/25 11:20 Antibiotics hydrocodone Allergy Hives Verified 08/27/25 11:20 Sulfa (Sulfonamide Allergy Hives Verified 08/27/25 11:20 Antibiotics) sulfamethoxazole (From Allergy Hives Verified 08/27/25 11:20 Bactrim) trimethoprim (From Bactrim) Allergy Hives Verified 08/27/25 11:20 bupropion (From Wellbutrin) AdvReac Intermediate Other Verified 08/27/25 11:20 azithromycin AdvReac Diarrhea Verified 08/27/25 11:20 Surgical History (Updated 08/27/25 @ 15:[address] Jessica Henao DO) S/P panniculectomy Hx of bilateral breast reduction surgery History of hysterectomy History of 3 sections Social History household members: spouse and none housing: house Smoking Status: Never smoker substance use type: does not use ROS ROS ED Constitutional Constitutional ED: Denies chills or fever(s) Eyes Eyes: Denies blurry vision or change in vision ENT ENT ED: Reports sore throat; Denies rhinorrhea Cardiovascular Cardiovascular: Denies chest pain or palpitations Respiratory/Chest Respiratory/Chest: Denies cough or dyspnea Gastrointestinal Gastrointestinal: Reports abdominal pain; Denies nausea or vomiting Genitourinary Genitourinary ED: Denies dysuria or hematuria Musculoskeletal Musculoskeletal: Denies back pain or neck pain Integumentary Denies abscess or rash Neurologic Neurologic: Denies headache(s) or weakness Allergic/Immunologic Allergic/Immunologic ED: Denies mouth swelling or urticaria EXAM Physical Exam Const Vital Signs: 08/27/25 11:20 08/27/25 12:19 Temperature 97.9 F Temperature Source Temporal Pulse Rate 77 Respiratory Rate 18 Respiratory Effort Normal Blood Pressure 154/98 H Blood Pressure Mean 116 Pulse Ox 100 Oxygen Delivery Method Room Air Positive well nourished and well developed General Appearance ED: well developed and NAD HEENT Reports moist mucous membranes Neck supple and no JVD Resp normal respiratory effort and clear to auscultation bilaterally Cardio regular rate and regular rhythm GI non-distended Palpation: soft and tender epigastric; Negative for guarding or rebound tenderness present Extremity normal to inspection Neuro oriented x3, CN's II-XII intact bilaterally and no sensory deficits noted Sensorium / Orientation: alert Motor Exam: strength 5/5 throughout Psych mental status grossly normal MDM MDM MDM Narrative Medical decision making narrative: Differential diagnosis includes swallowed foreign body, perforation, gastritis, pancreatitis, cholecystitis, cholelithiasis, and electrolyte abnormality. CBC will be obtained to assess for leukocytosis and anemia. Comprehensive metabolicprofile will be obtained to assess for hepatic function, renal function, and electrolyte abnormality. Lipase will be obtained to assess for pancreatitis. Acute abdominal x-rays will be obtained to assess for radiopaque foreign body, bowel obstruction, perforation. Lab Data Attestation: I reviewed the patient's lab results. Lab results narrative: CBC was reviewed. Hemoglobin was slightly elevated at 15.1. The remainder is within normal limits. Comprehensive metabolic profile was reviewed and was essentially within normal limits. Lipase was reviewed and was normal at 47. Labs: Laboratory Results - last 24 hr 08/27/25 14:02 WBC 10.3 RBC 5.23 Hgb 15.1 H Hct 46.8 MCV 89.5 MCH 28.9 MCHC 32.3 RDW Std Deviation 43.7 RDW Coeff of Dar 13.3 Plt Count 340 MPV 9.5 Immature Gran % (Auto) 0.200 Neut % (Auto) 64.5 Lymph % (Auto) 25.4 Meade % (Auto) 6.3 Eos % (Auto) 3.1 Baso % (Auto) 0.5 Absolute Neuts (auto) 6.6 Absolute Lymphs (auto) 2.61 Nucleated RBC % 0 Sodium 137 Potassium 4.4 Chloride 103 Carbon Dioxide 20.5 L Anion Gap 13 BUN 17 Creatinine 0.88 Estim Creat Clear Calc 119.59 Est GFR (MDRD) Non-Af 84 BUN/Creatinine Ratio 19.5 Glucose 81 Calcium 9.6 Total Bilirubin 0.71 AST 26 ALT 17 Alkaline Phosphatase 76 Total Protein 7.2 Albumin 4.3 Globulin 2.9 Albumin/Globulin Ratio 1.5 Lipase 47 Radiography Diagnostic Testing: Clinical Impression(s) from Imaging Studies Acute Abdomen Series 08/27/25 13:24 IMPRESSION: No acute pulmonary process No acute abdominal or pelvic process Retained stool Reading Location: [id number] Acute abdominal x-rays were obtained. There are 5 views. On my independent interpretation, there is no acute process noted. There is no free air or air-fluid levels noted. There is no radiopaque foreign body noted. Radiologist also interpreted the x-rays and agrees. Treatment and Re-Evaluation :: Patient was given IV fluids. Patient was given a GI cocktail. Patient was advised of her findings. Patient was instructed to drink plenty of fluids. Patient was instructed to follow-up with her primary care physician in 5 to 7 days. Patient was instructed to return if worse in any way. Patient understoodand was agreeable with the plan. All questions were answered. Discharge Plan Triage Chief Complaint: Foreign Body ED Provider: Jessica Henao Dx/Rx/DC Orders Clinical Impression: Abdominal pain, Ingestion of foreign body Instructions: ED Swallowed Foreign Body (Adult) Prescriptions: No Action metformin 1,000 mg Tablet 1,000 mg PO DAILY metoprolol succinate 100 mg Capsule,Sprinkle,Er 24hr 100 mg PO DAILY Mounjaro 12.5 mg/0.5 mL pen injector 2.5 mg SUBCUT QWEEK Patient Comments: inject 1 dose subcutaneously ONCE A WEEK, mondays Primary Care Provider: Care Physician,No Primary Referrals: Sebastian Dobbs MD [Med Staff - Intellectual Property Lawyer, Family Practice] - 5-7 Days Care Physician,No Primary [Primary Care Provider, Medical] Print Language: Colombian Disposition Disposition: Home, Self Care What to do if you have Problems For any increased pain, shortness of breath, bleeding, nausea or vomiting, chestpain, or any unexpected problems, contact your Primary Care Provider. Call [facility] ([phone]) or report to the closest Emergency Room. Call 911 if necessary. 08/27/25 1706 <Electronically signed by Jessica Henao DO> Cosigner Signature (if applicable): CC: No Primary Care Physician ~ Signed [facility] Work Phone: [phone] 355-228009-15-2025 Telephone encounter Note* Telephone Encounter - Jyoti Saab MA - 08/11/2025 1:36 PM EDT Prior Authorization has been submitted for Gabrielle via cover meds. Awaiting outcome [facility]09-15-2025 Miscellaneous Notes* Telephone Encounter - Jyoti SaabLARRY - 08/11/2025 1:36 PM EDT Prior Authorization has been submitted for Gabrielle via cover my meds. Awaiting outcome documented in [facility] encounterThe [facility] Telephone encounter Note * Telephone Encounter - Ashli Hooper MA - 06/10/2025 4:31 PM EDT Patient had a post operative visit with KATHLEEN Damon today - June 10, 2025 Patient told KATHLEEN Damon she needed a letter stating she was told by Dr. Jacome not to wear her seatbelt due to recent open wound under her breast. Marisol spoke with Dr. Jacome and Dr. Jacome stated he did not tell her that and he will not write a letter stating this. Marisol told Cindy this information. The patient stated she is not leaving this room until shespeak with Dr. Jacome. Dr. Jacome and myself entered the room where she stated Now I wouldn't make a liar out of you. Why are you doing that to me? You told me to not wear a seatbelt because of the pressure on my breast. You told me twice. My boyfriend has it recorded. Dr. Jacome stated I would never tell you not to wear a seatbelt. If you were to get into an accident, that would be horrible. Cindy yelled You're a liar! Dr. Jacome states I am not a liar. I never told you to not wear a seatbelt. I told her to avoid pressure on that breast due to the open wound, however never said dont wear a seatbelt. Cindy stated You will be hearing from my patent prosecution attorney. I got pulled over. I had the seatbelt over the lower half of my abdomen and the rest in the back of me. The sheriff detective states that is not allowed. Dr. Jacome states So you had your seatbelt on, correct? Cindy replied Yes, with the part behind me. Dr. Patten stated I can write you something saying you were not to apply pressure on that breast. Mango states That's all I need. She left. Ashli Hooper MA [facility]07-15-2025 Miscellaneous Notes* Telephone Encounter - Ashli Hooper MA - 06/10/2025 4:31 PM EDT Patient had a post operative visit with KATHLEEN Damon today - June 10, 2025 Patient told KATHLEEN Damon she needed a letter stating she was told by Dr. Jacome not to wear her seatbelt due to recent open wound under her breast. Marisol spoke with Dr. Jacome and Dr. Jacome stated he did not tell her that and he will not write a letter stating this. Marisol told Cindy this information. The patient stated she is not leaving this room until shespeak with Dr. Jacome. Dr. Jacome and myself entered the room where she stated Now I wouldn't make a liar out of you. Why are you doing that to me? You told me to not wear a seatbelt because of the pressure on my breast. You told me twice. My boyfriend has it recorded. Dr. Jacome stated I would never tell you not to wear a seatbelt. If you were to get into an accident, that would be horrible. Cindy yelled You're a liar! Dr. Jacome states I am not a liar. I never told you to not wear a seatbelt. I told her to avoid pressure on that breast due to the open wound, however never said dont wear a seatbelt. Cindy stated You will be hearing from my patent prosecution attorney. I got pulled over. I had the seatbelt over the lower half of my abdomen and the rest in the back of me. The sheriff detective states that is not allowed. Dr. Jacome states So you had your seatbelt on, correct? Cindy replied Yes, with the part behind me. Dr. Patten stated I can write you something saying you were not to apply pressure on that breast. Mango states That's all I need. She left. Ashli Hooper MA documented in this encounterThe [facility]07-[facility]-2025 NoteHNO ID: [id number] Author: MIGUEL DASILVA MA Service: ? Author Type: Production Wood Craftsman Type: Progress Notes Filed: 06/10/2025 15:03 Note Text: DATE OF PHOTOS: 06/10/2025 Body Part: Breasts Miguel damon MA June 10, 2025 3:03 [facility]07-15-2025 History of Present illness Narrative* Miguel Dasilva MA - 06/10/2025 3:03 PM EDT DATE OF PHOTOS: 06/10/2025 Body Part: Breasts Miguel damon MA June 10, 2025 3:03 PM documented in this encounterThe [facility]07-[facility]-2025 NoteHNO ID: [id number] Author: MARISOL AVENDAÑO PA-C Service: ? Author Type: Physician Optical Model Maker And Tester Type: Progress Notes Filed: 06/10/2025 15:52 Note Text: Plastic Surgery Postop Note Subjective: Cindy Alanis is a 40 year old female who presents BL breast reduction 03/27/25. Left breast wound at T point has finally healed. No pain or issues at this time. She is happy with the results. ROS Denies fevers, chills, rash, wound Physical Exam Ht 6' 1 (1.85m) Wt 251 lb (113.9kg) LMP 10/16/2018 BMI 33.12 kg/(m2). General Appearance: Well appearing, alert, in no acute distress, well-hydrated, well nourished.. Skin: Skin color, texture, turgor normal, no suspicious rashes or lesions. INCISION: BL breast incisions are Healed Post-op photos taken Assessment:(Z98.890) Post-operative state (primary encounter diagnosis Plan: - Moisturizer to incisions - Full activity - FU as needed [facility]07-15-2025 History of Present illness Narrative* Marisol Avendaño PA-C - 06/10/2025 2:49 PM EDT Plastic Surgery Postop Note Subjective: Cindy Alanis is a 40 year old female who presents BL breast reduction 03/27/25. Left breast wound at T point has finally healed. No pain or issues at this time. She is happy with the results. ROS Denies fevers, chills, rash, wound Physical Exam Ht 6' 1 (1.85m) Wt 251 lb (113.9kg) LMP 10/16/2018 BMI 33.12 kg/(m^2). General Appearance: Well appearing, alert, in no acute distress, well-hydrated, well nourished.. Skin: Skin color, texture, turgor normal, no suspicious rashes or lesions. INCISION: BL breast incisions are Healed Post-op photos taken Assessment:(Z98.890) Post-operative state (primary encounter diagnosis Plan: - Moisturizer to incisions - Full activity - FU as needed Marisol Avendaño PA-C documented in this encounterThe [facility]07-[facility]25 Telephone encounter Note * Telephone Encounter - Frankie Hayes LPN - 06/04/2025 7:52 AM EDT Last Office Visit Date: 02/18/2025 Last Distance Health Visit: Visit date not found Has the patient had an appointment at [facility] in the past year, or do they have an upcoming appointment scheduled at [facility]? YES- Continue with refill request. Future Appointment: Visit date not found Patient [facility] System[facility]art message requesting the following refill Refill(s) Requested: Requested Prescriptions Pending Prescriptions Disp Refills metoprolol succinate ER (TOPROL XL) 100 mg 30 tablet 1 Sig: Take 1 tablet by mouth daily at bedtime. ALLERGIES Allergen Reactions Dihydroaminopryidin* Rash, Hives, Diarrhea, Itching Hydrocodone Rash, Hives Wellbutrin [Bupropi* Intolerance Suicidal thoughts Erythromycin Rash, Diarrhea, Itching Oxycodone-Acetamino* Rash, Diarrhea, Vomiting Sulfa (Sulfonamide * Rash, Diarrhea Sulfamethoxazole-Tr* Rash, Diarrhea, Itching Trulicity [Dulaglut* Rash, Other: See Comments KNOTS UNDER SKIN Cymbalta [Duloxetin* Rash Lethargic Azithromycin Diarrhea (home) [phone] (cell) The patients preferred pharmacy has been captured for this encounter? yes Request is for script(s) to be escript to pharmacy. Frankie Hayes LPN [facility]07-09-2025 Miscellaneous Notes* Telephone Encounter - Frankie Hayes LPN - 06/04/2025 7:52 AM EDT Last Office Visit Date: 02/18/2025 Last [facility] Visit: Visit date not found Has the patient had an appointment at [facility] in the past year, or do they have an upcoming appointment scheduled at [facility]? YES- Continue with refill request. Future Appointment: Visit date not found Patient [facility] System[facility]art message requesting the following refill Refill(s) Requested: Requested Prescriptions Pending Prescriptions Disp Refills metoprolol succinate ER (TOPROL XL) 100 mg 30 tablet 1 Sig: Take 1 tablet by mouth daily at bedtime. ALLERGIES Allergen Reactions Dihydroaminopryidin* Rash, Hives, Diarrhea, Itching Hydrocodone Rash, Hives Wellbutrin [Bupropi* Intolerance Suicidal thoughts Erythromycin Rash, Diarrhea, Itching Oxycodone-Acetamino* Rash, Diarrhea, Vomiting Sulfa (Sulfonamide * Rash, Diarrhea Sulfamethoxazole-Tr* Rash, Diarrhea, Itching Trulicity [Dulaglut* Rash, Other: See Comments KNOTS UNDER SKIN Cymbalta [Duloxetin* Rash Lethargic Azithromycin Diarrhea (home) [phone] (cell) The patients preferred pharmacy has been captured for this encounter? yes Request is for script(s) to be escript to pharmacy. Frankie Hayes LPN documented in this encounterThe [facility]06-27-2025 Telephone encounter Note * Telephone Encounter - Jacqueline Salas - 05/23/2025 1:00 PM EDT Patient No Showed appointment. LVM for patient to call back to reschedule appointment. [facility] System[facility] message sent to patient. [facility]06-27-2025 Miscellaneous Notes* Telephone Encounter - Jacqueline Salas - 05/23/2025 1:00 PM EDT Patient No Showed appointment. LVM for patient to call back to reschedule appointment. [facility] System[facility]art message sent to patient. documented in this encounterThe [facility]06-17-2025 History of Present illness Narrative* Sarah Jacome MD - 05/13/2025 11:00 AM EDT S: Denies f/c. O: Gen alert, non toxic appearing A/P 39 year old female s/p reduction/att with left necrosis Plan: AG nitrate applied Continue dressing changes Fu 2 weeks The patient is seen and examined by Dr. Jacome and the following reflects his/her service. Scribed by Ashli Hooper MA I agree with the Chief Complaint, ROS, and Past Histories independently gathered by the clinical credit support specialist and the remaining scribed note accurately describes my personal service to the patient. documented in this encounterThe [facility]06-17-2025 NoteHNO ID: [id number] Author: SARAH JACOME MD Service: ? Author Type: Physician Type: Progress Notes Filed: 05/19/2025 13:33 Note Text: S: Denies f/c. O: Gen alert, non toxic appearing A/P 39 year old female s/p reduction/att with left necrosis Plan: AG nitrate applied Continue dressing changes Fu 2 weeks The patient is seen and examined by Dr. Jacome and the following reflects his/her service. Scribed by Ashli Hooper MA I agree with the Chief Complaint, ROS, and Past Histories independently gathered by the clinical credit support specialist and the remaining scribed note accurately describes my personal service to the patient.[facility] 05-06-2025 History of Present illness Narrative* Sarah Jacome MD - 05/06/2025 10:15 AM EDT S: Denies f/c. Some drainage - overall improved. O: Gen alert, non toxic appearing Left breast s/p closure with small opening centrally, no e/o infection, some sutres removed/silver nitrate applie All other incisions c/d/I, overall good early result A/P 39 year old female s/p reduction/att with left necrosis - no s/p delayed primary closure. Continue dressing changes as needed. Fu Monday for suture removal. Silver nitrate applied today. documented in this encounterThe [facility]06-10-2025 NoteHNO ID: [id number] Author: SARAH JACOME MD Service: ? Author Type: Physician Type: Progress Notes Filed: 05/11/2025 13:16 Note Text: S: Denies f/c. Some drainage - overall improved. O: Gen alert, non toxic appearing Left breast s/p closure with small opening centrally, no e/o infection, some sutres removed/silver nitrate applie All other incisions c/d/I, overall good early result A/P 39 year old female s/p reduction/att with left necrosis - no s/p delayed primary closure. Continue dressing changes as needed. Fu Monday for suture removal. Silver nitrate applied today.[facility]05-23-2025 Progress note* Result Encounter Note - Yasmeen Herzog MD - 04/18/2025 9:08 PM EDT To be addressed by ordering provider Yasmeen Herzog MD [facility] Work Phone: [phone] 197-127905-23-2025 Miscellaneous Notes* Result Encounter Note - Yasmeen Herzog MD - 04/18/2025 9:08 PM EDT To be addressed by ordering provider Yasmeen Herzog MD documented in this encounterThe [facility]05[facility]25 NoteHNO ID: [id number] Author: SARAH JACOME MD Service: ? Author Type: Physician Type: Progress Notes Filed: 04/16/2025 12:14 Note Text: S: Notes necrosis left inferior T junction breast. Denies f/c. Some drainage. O: Gen alert, non toxic appearing Left breast with 4x2cm area of dehiscence/necrosis All other incisions c/d/I, overall good early result A/P 39 year old female s/p reduction/att with left necrosis - Reassured May shower No strenuous lifting until advised WTD NS BID [facility] scheduled[facility] NoteHNO ID: [id number] Author: BENNIE PICHARDO APRN.AMADO Service: ? Author Type: Nurse Practitioner Type: Progress Notes Filed: 04/10/2025 12:01 Note Text: Plastic Surgery Postop Note SURGERY/PROCEDURE(S): 03/27/25 bilateral breast reduction Physical Exam LMP 10/16/2018 pt presents today with increased tenderness, small opening of incision--fern stand fell on her over the weekend General Appearance: Well appearing, alert, in no acute distress, well-hydrated, well nourished.. Skin: Skin color, texture, turgor normal, no suspicious rashes or lesions. Neurologic: Gait normal. Reflexes normal and symmetric. Sensation grossly intact.. INCISION: Dry and intact, without redness--stitch left from drain removal--removed; continues to have itchy diffuse rash ASSESSMENT/PLAN: 1. Post-operative state - ICD9: V45.89, ICD10: Z98.890 -betadine paint BID to L IMF -will prescribe another round of steroids and stronger steroid cream -Continue supportive garment -Continue activity restrictions until positive day 21 -Follow-up in clinic for next post op visit Bennie Pichardo APRN.[facility] History of Present illness Narrative* Bennie Pichardo APRN.CNP - 04/10/2025 11:30 AM EDT Plastic Surgery Postop Note SURGERY/PROCEDURE(S): 03/27/25 bilateral breast reduction Physical Exam LMP 10/16/2018 pt presents today with increased tenderness, small opening of incision--fern stand fell on her overthe weekend General Appearance: Well appearing, alert, in no acute distress, well-hydrated, well nourished.. Skin: Skin color, texture, turgor normal, no suspicious rashes or lesions. Neurologic: Gait normal. Reflexes normal and symmetric. Sensation grossly intact.. INCISION: Dry and intact, without redness--stitch left from drain removal--removed; continues to have itchy diffuse rash ASSESSMENT/PLAN: 1. Post-operative state - ICD9: V45.89, ICD10: Z98.890 -betadine paint BID to L IMF -will prescribe another round of steroids and stronger steroid cream -Continue supportive garment -Continue activity restrictions until positive day 21 -Follow-up in clinic for next post op visit Bennie Pichardo APRN.CNP documented in this encounterThe [facility]05-[facility]-2025 NoteHNO ID: [id number] Author: BENNIE PICAHRDO APRN.CNP Service: ? Author Type: Nurse Practitioner Type: Progress Notes Filed: 04/07/2025 11:56 Note Text: Plastic Surgery Postop Note SURGERY/PROCEDURE(S): 03/27/25 bilateral breast reduction Physical Exam LMP 10/16/2018 pt presents today with increased tenderness, small opening of incision--fern stand fell on her over the weekend General Appearance: Well appearing, alert, in no acute distress, well-hydrated, well nourished.. Skin: Skin color, texture, turgor normal, no suspicious rashes or lesions. Neurologic: Gait normal. Reflexes normal and symmetric. Sensation grossly intact.. INCISION: Dry and intact, without redness--improved from time of injury; t junction of left breast had split but now eschar---betadine applied; rash improving ASSESSMENT/PLAN: 1. Post-operative state - ICD9: V45.89, ICD10: Z98.890 -Steri-Strips removed aquaphor placed -betadine paint BID -Continue supportive garment -Continue activity restrictions until positive day 21 -Follow-up in clinic for next post op visit [facility] History of Present illness Narrative* Bennie Pichardo APRN.CNP - 04/07/2025 11:13 AM EDT Plastic Surgery Postop Note SURGERY/PROCEDURE(S): 03/27/25 bilateral breast reduction Physical Exam LMP 10/16/2018 pt presents today with increased tenderness, small opening of incision--alisa reina fell on her overthe weekend General Appearance: Well appearing, alert, in no acute distress, well-hydrated, well nourished.. Skin: Skin color, texture, turgor normal, no suspicious rashes or lesions. Neurologic: Gait normal. Reflexes normal and symmetric. Sensation grossly intact.. INCISION: Dry and intact, without redness--improved from time of injury; t junction of left breast had split but now eschar---betadine applied; rash improving ASSESSMENT/PLAN: 1. 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 documented in this encounterThe [facility]05-[facility] Telephone encounter Note * Telephone Encounter - Ashli Hooper MA - 04/07/2025 8:47 AM EDT Patient is in the office. Ashli Hooper MA [facility]05-12-2025 Miscellaneous Notes* Telephone Encounter - Ashli Hooper MA - 04/07/2025 8:47 AM EDT Patient is in the office. Ashli Hooper MA documented in this encounterThe [facility]05-09-2025 Telephone encounter Note * Telephone Encounter - Britney Talbot LPN - 04/04/2025 5:24 PM EDT Last Office Visit Date: 02/18/2025 Last [facility] Visit: Visit date not found Has the patient had an appointment at [facility] in the past year, or do they have an upcoming appointment scheduled at [facility]? YES- Continue with refill request. Future Appointment: Visit date not found Pharmacy faxed requesting the following refill Refill(s) Requested: Requested Prescriptions Pending Prescriptions Disp Refills metoprolol succinate ER (TOPROL XL) 100 mg 30 tablet 1 Sig: Take 1 tablet by mouth daily at bedtime. ALLERGIES Allergen Reactions Dihydroaminopryidin* Rash, Hives, Diarrhea, Itching Hydrocodone Rash, Hives Wellbutrin [Bupropi* Intolerance Suicidal thoughts Erythromycin Rash, Diarrhea, Itching Oxycodone-Acetamino* Rash, Diarrhea, Vomiting Sulfa (Sulfonamide * Rash, Diarrhea Sulfamethoxazole-Tr* Rash, Diarrhea, Itching Trulicity [Dulaglut* Rash, Other: See Comments KNOTS UNDER SKIN Cymbalta [Duloxetin* Rash Lethargic Azithromycin Diarrhea (home) [phone] (cell) The patients preferred pharmacy has been captured for this encounter? yes Request is for script(s) to be escript to pharmacy. Britney Talbot LPN [facility]05-09-2025 Miscellaneous Notes* Telephone Encounter - Britney Talbot LPN - 04/04/2025 5:24 PM EDT Last Office Visit Date: 02/18/2025 Last [facility] Visit: Visit date not found Has the patient had an appointment at [facility] in the past year, or do they have an upcoming appointment scheduled at [facility]? YES- Continue with refill request. Future Appointment: Visit date not found Pharmacy faxed requesting the following refill Refill(s) Requested: Requested Prescriptions Pending Prescriptions Disp Refills metoprolol succinate ER (TOPROL XL) 100 mg 30 tablet 1 Sig: Take 1 tablet by mouth daily at bedtime. ALLERGIES Allergen Reactions Dihydroaminopryidin* Rash, Hives, Diarrhea, Itching Hydrocodone Rash, Hives Wellbutrin [Bupropi* Intolerance Suicidal thoughts Erythromycin Rash, Diarrhea, Itching Oxycodone-Acetamino* Rash, Diarrhea, Vomiting Sulfa (Sulfonamide * Rash, Diarrhea Sulfamethoxazole-Tr* Rash, Diarrhea, Itching Trulicity [Dulaglut* Rash, Other: See Comments KNOTS UNDER SKIN Cymbalta [Duloxetin* Rash Lethargic Azithromycin Diarrhea (home) [phone] (cell) The patients preferred pharmacy has been captured for this encounter? yes Request is for script(s) to be escript to pharmacy. Britney Talbot LPN documented in this encounterThe [facility]05-07-2025 NoteHNO ID: [id number] Author: BENNIE PICHARDO APRN.PARTY PLAN SALES DIRECTOR Service: ? Author Type: Nurse Practitioner Type: Progress Notes Filed: 04/02/2025 10:52 Note Text: Plastic Surgery Postop Note SURGERY/PROCEDURE(S): 03/27/25 bilateral breast reduction Physical Exam LMP 10/16/2018 General Appearance: Well appearing, alert, in no acute distress, well-hydrated, well nourished.. Skin: Skin color, texture, turgor normal, no suspicious rashes or lesions. Neurologic: Gait normal. Reflexes normal and symmetric. Sensation grossly intact.. INCISION: Dry and intact, without redness; drains <5cc/day--removed, bacitracin and bandaid placed; surgical tape removed; all areas cleansed and steri-strips replaced ASSESSMENT/PLAN: 1. Post-operative state - ICD9: V45.89, ICD10: Z98.890 -Steri-Strips removed and replaced -Continue supportive garment -Continue activity restrictions until positive day 21 -Follow-up in clinic for next post op visit Bennie Pichardo APRN.[facility]PD[facility]05-[facility] History of Present illness Narrative* Bennie Pichardo APRN.CNP - 04/02/2025 9:08 AM EDT Plastic Surgery Postop Note SURGERY/PROCEDURE(S): 03/27/25 bilateral breast reduction Physical Exam LMP 10/16/2018 General Appearance: Well appearing, alert, in no acute distress, well-hydrated, well nourished.. Skin: Skin color, texture, turgor normal, no suspicious rashes or lesions. Neurologic: Gait normal. Reflexes normal and symmetric. Sensation grossly intact.. INCISION: Dry and intact, without redness; drains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 Constipation is better She is continuing with diet changes: yes -Main focus of dietary changes: Currently though recovering from abdominoplasty not eating much. She is continuing with exercise changes:yes -Exercise routine: exercising almost every day Goal weight:200/180 Review of weight loss medication side effects Any GI upset? no Changes to blood pressure? no Visual Changes: no -- Patient reports suppression of her appetite and increase in satiety since starting the medication Diet: Counseled on focusing on protein and fibers. Focused on healthy eating Satiety and Satiation improved Cravings well controlled [...] Psychiatric/Behavioral: The patient does not have insomnia. Recovering from abdominoplasty VITALS: Ht 185.4 cm (6' 1) Wt 115.7 kg (255 lb) LMP 10/16/2018 (Approximate) BMI 33.64 kg/m , Body mass index is 33.64 kg/m . Physical Exam Constitutional:. --no issues with communication HEENT: Normocephalic and atraumatic. Eyes: Conjunctiva appear normal. No scleral icterus. Hearing: Is grossly intact. Neck: Range of motion appears normal. Thyroid: appears symmetric and not enlarged. Pulmonary/Chest: Effort normal. Psychiatric: Mood, memory, affect and judgment normal. Neurological: alert and oriented to person, place, and time. Impression and Plan: ASSESSMENT/PLAN: 1. Class 1 obesity (primary diagnosis) Weight decreasing/current BMI 33.6 --Starting BMI over 40, starting weight of over 323 pounds. - Behavioral and pharmacological intervention --Has responded very well to Mounjaro her cravings and hunger are well controlled Currently on 5 mgs Mounjaro hat is the patient's diagnosis? Type 2 Diabetes Mellitus / Type 1 Diabetes /Prediabetes All other indications and diagnoses PAST MEDICAL HISTORY PAST MEDICAL HISTORY Diagnosis Date Anxiety Diabetes mellitus (HCC) Hypertension Spinal stenosis Does the patient have any pertinent past or present therapies (including OTCs and non-pharmacological)? Remains on metformin Has the patient tried and failed or been unable to tolerate metformin (alone or in combination)? Yes/ Trulicity taken while she was on [place] February 2015 to April 2015: but no response Rosieren which is alternative was taken Nov 2017 to january 2018 caused Terrible knots in stomach and extreme sickness . Red rashes on body Metformin for >6 months, using 1000 mg total a day,unable to tolerate higher doses Limited efficacy. Initial A1c when started on Mounjaro 8.2 before initiating Mounjaro Current @A1c@ 5.5 while on Mounjaro. Since patient has been on this class of drugs that has been a contributing factor to a great HbA1C. What is the patient's most recent hemoglobin A1c? @a1c@5.5 Pt is feeling great and its decreasing her risk of CVA/stroke 2. Dietary counseling and surveillance - ICD9: V65.3, ICD10: Z71.3 Reviewed principles of energy metabolism, caloric intake and expenditure, and rationale for treatment program. Also reinforced need for reduced calorie, low fat diet and increased physical activity. 3. Type 2 diabetes without any complications A1c down to 5.5 reviewed labs as she has been on - Continue current medications Repeat labs. 4. Body mass index 33 Weight has been stable - Behavioral and pharmacological intervention - 5. Vitamin D deficiency - ICD9: 268.9, ICD10: E55.9 Continue supplements. 6. Primary hypertension - ICD9: 401.9, ICD10: I10 - good control - Encouraged dietary sodium restriction/DASH diet - Recommended regular aerobic exercise. - Recommend home blood pressure monitoring, to bring results in on next visit - Goal of BP <130/80 Fela Gan MD Dietary counseling She is doing well otherwise, continues lifestyle [...] medical decision making from TODAY Counseling Visit 15 minutes for preventive counseling/IBT : including reviewing chart and finishing my notes Screening for obesity completed during initial plan of care. Patient was competent and alert at the time that counseling was provided. 5a's reviewed: Assess- I assessed behavioral health risk/factors affecting --- Asked about/assess behavioral health risk(s) and factors affecting choice of behavior change goals -Insulin resistance : But improving -Has been back to the gym exercising almost on regular basis -Counseled on continue with moderate protein about 70 to 90 g daily as well as adding fibers with each meal. Patient is agreeable to above plan and verbalizes understanding the office will work on prior authorization for the medication. -- Patient agrees with the plan and verbalizes understanding. Recommended continuing with at least 70 g of protein daily as well as 70 ounces of water continue with strength training. Constipation: Improved Advise: clear, specific, personalized behavior change advice. [...] as visual guide to low carb food: [employer]Emulate Limit carb consumption to 80- 100 grams [...] Good examples of appsto track calories are [employer], LOSE IT. Some patient have found FOODUCATE [...] like a plant based meal replacement called [employer] - can mix w froz berries and almond milk) This note was partially generated using [employer] voice recognition system, and there may be [...] History, Past Social History. documented in this encounterThe [facility] System12-05-2024 NoteHNO ID: [id number] Author: FELA GAN MD Service: ? Author Type: Physician Type: Progress Notes Filed: 10/31/2024 16:02 Note Text: Feal Gan MD [facility] [address] [place] [address], [address] [facility] - Fourth Floor [place] [address] This Team Access Model visit is a virtual visit. It required patient-provider interaction for the medical decision making as documented below. Consent was obtained to complete today's distance health visit. I have communicated my name and active licensure. The patient's identity and physical location were verified at the time of this visit. Either the patient or their legal customer retention representative has been informed of the risks and benefits of -- and alternatives to -- treatment through a remote evaluation and consents to proceed with the evaluation remotely. Cindy Brody with has a past medical history of Anxiety, Diabetes mellitus (HCC), Hypertension, and Spinal stenosis. She has no past medical history of Scoliosis. here today for a follow up on her weight loss efforts. She is currently taking the prescription weight loss medication Metformin, Mounjaro, off label, and Topiramate, off label Concerns: - insurance reguires prior auth and ?new goals for A1c --she has been trying to cont on 5 mgs and trying to stretch current prescription she was on 7.5 mg Mounjaro but had to go down on 5 mg due to medication shortages and unavailability. Has been consistent with meals Hunger and craving well controlled Constipation is better She is continuing with diet changes: yes -Main focus of dietary changes: Currently though recovering from abdominoplasty not eating much. She is continuing with exercise changes:yes -Exercise routine: exercising almost every day Goal weight:200/180 Review of weight loss medication side effects Any GI upset? no Changes to blood pressure? no Visual Changes: no -- Patient reports suppression of her appetite and increase in satiety since starting the medication Diet: Counseled on focusing on protein and fibers. Focused on healthy eating Satiety and Satiation improved Cravings well controlled [...] Psychiatric/Behavioral: The patient does not have insomnia. Recovering from abdominoplasty VITALS: Ht 185.4 cm (6' 1) Wt 115.7 kg (255 lb) LMP 10/16/2018 (Approximate) BMI 33.64 kg/m? , Body mass index is 33.64 kg/m?. Physical Exam Constitutional:. --no issues with communication HEENT: Normocephalic and atraumatic. Eyes: Conjunctiva appear normal. No scleral icterus. Hearing: Is grossly intact. Neck: Range of motion appears normal. Thyroid: appears symmetric and not enlarged. Pulmonary/Chest: Effort normal. Psychiatric: Mood, memory, affect and judgment normal. Neurological: alert and oriented to person, place, and time. Impression and Plan: ASSESSMENT/PLAN: 1. Class 1 obesity (primary diagnosis) Weight decreasing/current BMI 33.6 --Starting BMI over 40, starting weight of over 323 pounds. - Behavioral and pharmacological intervention --Has responded very well to Mounjaro her cravings and hunger are well controlled Currently on 5 mgs Mounjaro hat is the patient's diagnosis? Type 2 Diabetes Mellitus / Type 1 Diabetes /Prediabetes All other indications and diagnoses PAST MEDICAL HISTORY PAST MEDICAL HISTORY Diagnosis Date Anxiety Diabetes mellitus (HCC) Hypertension Spinal stenosis Does the patient have any pertinent past or present therapies (including OTCs and non-pharmacological)? Remains on metformin Has the patient tried and failed or been unable to tolerate metformin (alone or in combination)? Yes/ [facility] February [facility] to April 2015: but no response Byduren which is alternative was taken Nov 2017 to january 2018 caused Terrible knots in stomach and extreme sickness . Red rashes on body Metformin for >6 months, using 1000 mg total a day,unable to tolerate higher doses Limited efficacy. Initial A1c when started on Mounjaro 8.2 before initiating Mounjaro Current @A1c@ 5.5 while on Mounjaro. Since patient has been on this class of drugs that has been a contributing factor to a great HbA1C. What is the patient's most recent hemoglobin A1c? @a1c@5.5 Pt is feeling great and its decreas (more content not included)...[facility]11-18-2024 Telephone encounter Note* Telephone Encounter - Fela Gan MD - 10/14/2024 2:30 PM EST What is the patient's diagnosis? Type 2 Diabetes Mellitus / Type 1 Diabetes /Prediabetes All other indications and diagnoses PAST MEDICAL HISTORY Diagnosis Date Anxiety Diabetes mellitus (HCC) Hypertension Spinal stenosis Does the patient have any pertinent past or present therapies (including OTCs and non-pharmacological)? Remains on metformin Has the patient tried and failed or been unable to tolerate metformin (alone or in combination)? Yes/ Trulicity taken in [place] February 2015 to April 2015. Byduren which is alternative was taken Nov 2017 to january 2018 in [place]. Terrible knots in stomach and extreme sickness . Red rashes on body Metformin for >6 months, using 1000 mg total a day,unable to tolerate higher doses Limited efficacy. Initial A1c when started on Mounjaro 8.2 Current @A1c@Tolerating Mounjaro. Since patient has been on this class of drugs that has been a contributing factor to a great HbA1C. What is the patient's most recent hemoglobin A1c? @a1c@5.5 [facility]11-11-2024 Telephone encounter Note* Telephone Encounter - Josy Escobedo LPN - 10/07/2024 1:52 PM EST Last Office Visit Date: 03/21/2024 Last [facility] Visit: Visit date not found Has the patient had an appointment at [facility] in the past year, or do they have an upcoming appointment scheduled at [facility]? YES- Continue with refill request. Future Appointment: Visit date not found Pharmacy faxed requesting the following refill Refill(s) Requested: Requested Prescriptions Pending Prescriptions Disp Refills metoprolol succinate ER (TOPROL XL) 100 mg 30 tablet 1 Sig: Take 1 tablet by mouth daily at bedtime. ALLERGIES Allergen Reactions Dihydroaminopryidin* Diarrhea, Hives, Itching, Rash Erythromycin Rash, Diarrhea, Itching Hydrocodone Hives, Rash Oxycodone-Acetamino* Diarrhea, Rash, Vomiting Sulfa (Sulfonamide * Diarrhea, Rash Sulfamethoxazole-Tr* Diarrhea, Itching, Rash Trulicity [Dulaglut* Rash, Other: See Comments KNOTS UNDER SKIN Wellbutrin [Bupropi* Intolerance Suicidal thoughts Azithromycin Diarrhea (home) [phone] (cell) The patients preferred pharmacy has been captured for this encounter? yes Request is for script(s) to be escript to pharmacy. Josy Escobedo LPN [facility]11-11-2024 Miscellaneous Notes* Telephone Encounter - Josy Escobedo LPN - 10/07/2024 1:52 PM EST Last Office Visit Date: 03/21/2024 Last [facility] Visit: Visit date not found Has the patient had an appointment at [facility] in the past year, or do they have an upcoming appointment scheduled at [facility]? YES- Continue with refill request. Future Appointment: Visit date not found Pharmacy faxed requesting the following refill Refill(s) Requested: Requested Prescriptions Pending Prescriptions Disp Refills metoprolol succinate ER (TOPROL XL) 100 mg 30 tablet 1 Sig: Take 1 tablet by mouth daily at bedtime. ALLERGIES Allergen Reactions Dihydroaminopryidin* Diarrhea, Hives, Itching, Rash Erythromycin Rash, Diarrhea, Itching Hydrocodone Hives, Rash Oxycodone-Acetamino* Diarrhea, Rash, Vomiting Sulfa (Sulfonamide * Diarrhea, Rash Sulfamethoxazole-Tr* Diarrhea, Itching, Rash Trulicity [Dulaglut* Rash, Other: See Comments KNOTS UNDER SKIN Wellbutrin [Bupropi* Intolerance Suicidal thoughts Azithromycin Diarrhea (home) [phone] (cell) The patients preferred pharmacy has been captured for this encounter? yes Request is for script(s) to be escript to pharmacy. Josy Escobedo LPN documented in this encounterThe [facility] System10-22-2024 History of Present illness Narrative* Sarah Jacome MD - 09/17/2024 2:30 PM EDT Plastic Surgery Postop Note All documentation from previous visit was copied and pasted, documentation has been reviewed and edited as necessary for today's visit. Surgery: 07/04/24 Abdominoplasty Patient today notes symptoms of macromastia. Intertriginous irritation requiring creams/powders, foul odor, shoulder grooving (see in photos), poor fitting clothes, alterations of adls, decreased exercise tolerance, back pain/neck pain. Interested in reduction. Physical Exam LMP 10/16/2018 Breast Measurements: SNN: L 38 R 39 BW 16 IMF L 11.5 R 14 In CM Grade III ptosis, stretch wong above the nipples, lateral axillary excess Intertriginous irritation at IMF/ maceration Should groooving General Appearance: Well appearing, alert, in no acute distress, well-hydrated, well nourished.. Skin: Skin color, texture, turgor normal, no suspicious rashes or lesions. Neurologic: Gait normal. Reflexes normal and symmetric. Sensation grossly intact.. INCISION: healed abdomen ASSESSMENT/PLAN: 39 year old female s/p panniculectomy with good result. Also has grade III ptosis and excess skin of the breasts following MWL. This is causing Intertriginous irritation requiring creams/powders, foul odor, shoulder grooving (see in photos), poor fitting clothes, alterations of adls, decreased exercise tolerance, back pain/neck pain. She would benefit from a reduction/lift. The patient is seen and examined by Dr. Jacome and the following reflects his/her service. Scribed by Ashli Hooper MA I agree with the Chief Complaint, ROS, and Past Histories independently gathered by the clinical credit support specialist and the remaining scribed note accurately describes my personal service to the patient. Surgery Scheduling Cindy Salcedo Page 1985 Procedure: b/l breast reduction OR Time Needed: 4 hrs [place] or ASC:[facility] Equipment Request: lots of 10 blades, cookie cutters, epi soaked telfa, prineo, 2 19F drains, exparel, 2-0 pds, 3-0 moncryl stratafix, /4-0 moncryl, 5-0 fast SA Requested: Yes Anesthesia: General Post op appointment: 1,3,6 Inpatient stay:No Block Needed: No Pre Testing Needed: Yes Occupational Therapy: No Cosmetic: No Sarah Jacome MD documented in this encounterThe [facility] System10-22-2024 History of Present illness Narrative* Ashli Hooper MA - 09/17/2024 1:20 PM EDT DATE OF PHOTOS: 09/17/2024 Body Part: Breasts Ashli Hooper MA September 17, 2024 1:20 PM documented in this encounterThe [facility] System10-17-2024 Telephone encounter Note * Telephone Encounter - Jyoti Saab MA - 09/12/2024 2:41 PM EDT PA submitted via [facility] with notes and labs attached [facility]10-17-2024 Miscellaneous Notes* Telephone Encounter - Jyoti Saab MA - 09/12/2024 2:41 PM EDT PA submitted via [facility] with notes and labs attached * Telephone Encounter - Fela Gan MD - 09/12/2024 12:02 PM EDT The following approved medication requests have been transmitted electronically. Requested Prescriptions Signed Prescriptions Disp Refills tirzepatide (MOUNJARO) 5 mg/0.5 mL pen injector 2 mL 0 Sig: Inject 5 mg subcutaneously one time a week. Fela Gan MD * Telephone Encounter - Jyoti Saab MA - 09/12/2024 11:59 AM EDT Please send in the 5 mg dosage so I can work on the PA for it. Pended for refill documented in this encounterThe [facility]health System10-17-2024 Telephone encounter Note * Telephone Encounter - Fela Gan MD - 09/12/2024 12:02 PM EDT The following approved medication requests have been transmitted electronically. Requested Prescriptions Signed Prescriptions Disp Refills tirzepatide (MOUNJARO) 5 mg/0.5 mL pen injector 2 mL 0 Sig: Inject 5 mg subcutaneously one time a week. Fela Gan MD [facility]10-17-2024 Telephone encounter Note* Telephone Encounter - Jyoti Saab MA - 09/12/2024 11:59 AM EDT Please send in the 5 mg dosage so I can work on the PA for it. Pended for refill [facility]10-15-2024 Miscellaneous Notes* Telephone Encounter - Megan Reyes LPN - 09/10/2024 3:51 PM EDT Pharmacy requesting the following refill Refill(s) Requested: Requested Prescriptions Pending Prescriptions Disp Refills metFORMIN (GLUCOPHAGE) 500 mg tablet 180 tablet 0 Sig: Take 1 tablet by mouth two times a day. ALLERGIES Allergen Reactions Dihydroaminopryidin* Diarrhea, Hives, Itching, Rash Erythromycin Rash, Diarrhea, Itching Hydrocodone Hives, Rash Oxycodone-Acetamino* Diarrhea, Rash, Vomiting Sulfa (Sulfonamide * Diarrhea, Rash Sulfamethoxazole-Tr* Diarrhea, Itching, Rash Trulicity [Dulaglut* Rash, Other: See Comments KNOTS UNDER SKIN Wellbutrin [Bupropi* Intolerance Suicidal thoughts Azithromycin Diarrhea (home) [phone] (cell) Last Office Visit Date: 04/23/2024 Last [facility] Visit: 07/26/2024 Future Appointment: 10/31/2024 The patients preferred pharmacy has been captured for this encounter? yes Request is for script(s) to be escript to pharmacy. Megan Reyes LPN documented in this encounterThe [facility]health System10-15-2024 Telephone encounter Note * Telephone Encounter - Megan Reyes LPN - 09/10/2024 3:51 PM EDT Pharmacy requesting the following refill Refill(s) Requested: Requested Prescriptions Pending Prescriptions Disp Refills metFORMIN (GLUCOPHAGE) 500 mg tablet 180 tablet 0 Sig: Take 1 tablet by mouth two times a day. ALLERGIES Allergen Reactions Dihydroaminopryidin* Diarrhea, Hives, Itching, Rash Erythromycin Rash, Diarrhea, Itching Hydrocodone Hives, Rash Oxycodone-Acetamino* Diarrhea, Rash, Vomiting Sulfa (Sulfonamide * Diarrhea, Rash Sulfamethoxazole-Tr* Diarrhea, Itching, Rash Trulicity [Dulaglut* Rash, Other: See Comments KNOTS UNDER SKIN Wellbutrin [Bupropi* Intolerance Suicidal thoughts Azithromycin Diarrhea (home) [phone] (cell) Last Office Visit Date: 04/23/2024 Last [facility] Visit: 07/26/2024 Future Appointment: 10/31/2024 The patients preferred pharmacy has been captured for this encounter? yes Request is for script(s) to be escript to pharmacy. Megan Reyes LPN [facility] Work Phone: [phone] 483-346910-09-2024 Telephone encounter Note* Telephone Encounter - Jyoti Saab MA - 09/04/2024 2:12 PM EDT Previous refills got denied as they were both considered a duplicate- Patient needs the refill with the increased dosage as pended [facility]10-09-2024 Miscellaneous Notes* Telephone Encounter - Jyoti Saab MA - 09/04/2024 2:12 PM EDT Previous refills got denied as they were both considered a duplicate- Patient needs the refill with the increased dosage as pended documented in this encounterThe [facility]health System09-27-2024 Telephone encounter Note * Telephone Encounter - Lorraine Georges RN - 08/23/2024 3:36 PM EDT Patient notified of results and provider's instructions. Patient verbalizes understanding. Lorraine Georges RN [facility]09-27-2024 Miscellaneous Notes* Telephone Encounter - Lorraine Georges RN - 08/23/2024 3:36 PM EDT Patient notified of results and provider's instructions. Patient verbalizes understanding. Lorraine Georges RN * Telephone Encounter - Karol Ca LPN - 08/23/2024 3:31 PM EDT Unable to reach patient. Mailbox not set up Please try again later. Karol Ca LPN * Telephone Encounter - Alirio Smith APRN.CNP - 08/23/2024 3:25 PM EDT No significant findings with the labs that would indicate why patient is itching. Patient should try the care plan as discussed with providers and if it is not working follow-up with her primary care. documented in this encounterThe [facility]health System09-27-2024 Telephone encounter Note * Telephone Encounter - Karol Ca LPN - 08/23/2024 3:31 PM EDT Unable to reach patient. Mailbox not set up Please try again later. Karol Ca LPN [facility]09-27-2024 Telephone encounter Note* Telephone Encounter - Alirio Smith APRN.CNP - 08/23/2024 3:25 PM EDT No significant findings with the labs that would indicate why patient is itching. Patient should try the care plan as discussed with providers and if it is not working follow-up with her primary care. [facility]09-27-2024 NoteHNO ID: [id number] Author: ALIRIO SMITH APRN.PARTY PLAN SALES DIRECTOR Service: ? Author Type: Nurse Practitioner Type: Progress Notes Filed: 08/23/2024 14:15 Note Text: Subjective Came in with complaints of itching rash on bilateral arms and legs. Surgery about a month ago. Patient says about 2 weeks after that started noticing the rash. The rash has been consistent for 2 weeks. She says the itching is what bothers her the most. Patient denies changing any soaps lotions or detergents. Patient denies taking any new medication. The history is provided by the patient. No diplomatic interpreter was used. Rash Review of Systems Constitutional: Negative. Skin: Positive for itching and rash. Objective Physical Exam Constitutional: Appearance: Normal appearance. Pulmonary: Effort: Pulmonary effort is normal. Skin: Comments: Patient is itching in the areas marked above. Small reddened areas where patient was scratching. Neurological: Mental Status: She is alert. PAST MEDICAL HISTORY Diagnosis Date Anxiety Diabetes mellitus (HCC) Hypertension Spinal stenosis PAST SURGICAL HISTORY Procedure Laterality Date SECTION HX x3 HYSTERECTOMY Partial ALLERGIES Dihydroaminopryidine Antibiotics, Erythromycin, Hydrocodone, Oxycodone-Acetaminophen, Sulfa (Sulfonamide Antibiotics), Sulfamethoxazole-Trimethoprim, Trulicity [Dulaglutide], Wellbutrin [Bupropion], and Azithromycin MEDICATIONS predniSONE (DELTASONE) 10 mg tablet Take 3 tablets by mouth once daily for 3 days, THEN 2 tablets once daily for 3 days, THEN 1 tablet once daily for 3 days. famotidine (PEPCID) 20 mg tablet Take 1 tablet by mouth two times a day for 7 days. metoprolol succinate ER (TOPROL XL) 100 mg Take 1 tablet by mouth daily at bedtime. tirzepatide (MOUNJARO) 5 mg/0.5 mL pen injector Inject 5 mg subcutaneously one time a week. ondansetron (ZOFRAN) 4 mg tablet Take 1 tablet by mouth every 8 hours as needed for nausea/vomiting. metFORMIN (GLUCOPHAGE) 500 mg tablet Take 1 tablet by mouth two times a day. topiramate (TOPAMAX) 100 mg tablet Take 1 tablet by mouth daily at bedtime. DULoxetine (CYMBALTA) 60 mg capsule Take 1 capsule by mouth once daily. lidocaine (LIDODERM) 5 % Apply 1 Patch as directed once daily. to affected area. Remove patch after 12 hours. (Patient not taking: Reported on 03/21/2024) cyclobenzaprine (FLEXERIL) 5 mg tablet Take 1 tablet by mouth two times a day as needed for muscle spasm. (Patient taking differently: Take 10 mg by mouth two times a day as needed for muscle spasm.) ergocalciferol 50,000 unit capsule (VITAMIN D2, DRISDOL) Take 1 capsule by mouth one time a week. FAMILY HISTORY Problem Relation Age of Onset Osteoporosis Mother Hypertension Father Diabetes Father Social History Tobacco Use Smoking status: Former Current packs/day: 0.00 Types: Cigarettes Start date: 2010 Quit date: 2012 Years since quittin.7 Smokeless tobacco: Never Vaping Use Vaping status: Never Used Substance Use Topics Alcohol use: Not Currently Drug use: Never ASSESSMENT/PLAN: 1. Rash - ICD9: 782.1, ICD10: R21 (primary diagnosis) - COMPLETE BLOOD COUNT AND DIFFERENTIAL - COMPREHENSIVE METABOLIC PANEL - PREDNISONE 10 MG TABLET 2. Itching - ICD9: 698.9, ICD10: L29.9 - FAMOTIDINE 20 MG TABLET Educated about proper use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 No neurological symptoms or problems. Respiratory: No history of current cough or dyspnea, or pneumonia in the past 6 weeks. No history of respiratory/pulmonary symptoms or problems. Cardiovascular: Positive for: hypertension Negative for: chest pain, CHF, congenital heart defect, DVT/PE and hyperlipidemia. GI: Positive for: GERD Negative for: ascites, colon cancer, dysphagia and diverticulitis. : No history of dysuria, frequency or incontinence, stones or chronic kidney disease. No difficulty urinating, nocturia > 1 time per night or hematuria. 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 Negative for abnormal vaginal bleeding, abnormal vaginal discharge. Endocrine: Positive for: diabetes mellitus. Patient's diabetes mellitus is controlled by diet and oral agents. Negative for: hyperthyroidism, hypothyroidism and hyperparathyroidism. Hematology: No history of bleeding or clotting disorder. Patient is not taking anti-coagulation or platelet medications. No history of hematological symptoms or problems. Oncology: No history of CA metastasis, chemo within 30 days, or radiotherapy within 90 days. No history of oncological symptoms or problems. Psych: Controlled on its own Positive for: anxiety and depression. Musculoskeletal: Negative for joint pain or swelling, back pain or muscle pain. Skin: See HPI. PAST MEDICAL HISTORY No date: Anxiety No date: Diabetes mellitus (HCC) No date: Hypertension No date: Spinal stenosis PAST SURGICAL HISTORY No date: SECTION HX Comment: x3 No date: HYSTERECTOMY Comment: Partial FAMILY HISTORY Problem Relation Age of Onset Osteoporosis Mother Hypertension Father Diabetes Father Social History Tobacco Use Smoking status: Former Current packs/day: 0.00 Types: Cigarettes Start date: 2010 Quit date: 2012 Years since quittin.6 Smokeless tobacco: Never Vaping Use Vaping status: Never Used Substance Use Topics Alcohol use: Not Currently Drug use: Never Prior to Admission medications as of 07/16/24 0905 Medication Sig Last Dose Taking metFORMIN (GLUCOPHAGE) 500 mg tablet Take 1 tablet by mouth two times a day. Taking Yes tirzepatide (MOUNJARO) 15 mg/0.5 mL pen injector Inject 15 mg subcutaneously one time a week. Taking Yes metoprolol succinate ER (TOPROL XL) 100 mg Take 1 tablet by mouth daily at bedtime. Taking Yes DULoxetine (CYMBALTA) 60 mg capsule Take 1 capsule by mouth once daily. Taking Yes cyclobenzaprine (FLEXERIL) 5 mg tablet Take 1 tablet by mouth two times a day as needed for muscle spasm. Patient taking differently: Take 10 mg by mouth two times a day as needed for muscle spasm. Taking Yes ergocalciferol 50,000 unit capsule (VITAMIN D2, DRISDOL) Take 1 capsule by mouth one time a week. Taking Yes topiramate (TOPAMAX) 100 mg tablet Take 1 tablet by mouth daily at bedtime. traMADol (ULTRAM) 50 mg tablet Take 50 mg by mouth. Patient not taking: Reported on 04/03/2024 Not Taking lidocaine (LIDODERM) 5 % Apply 1 Patch as directed once daily. to affected area. Remove patch after12 hours. Patient not taking: Reported on 03/21/2024 Medication Comments documented by Sabra Power LPN on 11/11/2022 at 1315. 76 ALLERGIES Allergen Reactions Acetaminophen Other: See Comments Dihydroaminopryidin* Diarrhea, Hives, Itching, Rash Hydrocodone Hives, Rash Oxycodone-Acetamino* Diarrhea, Rash, Vomiting Sulfa (Sulfonamide * Diarrhea, Rash Sulfamethoxazole-Tr* Diarrhea, Itching, Rash Victoza [Liraglutid* Rash Wellbutrin [Bupropi* Intolerance Suicidal thoughts Azithromycin Diarrhea Objective PHYSICAL EXAM: General: alert and oriented and healthy appearance. Pertinent negatives noted - not distressed. Skin: Defer to surgeon . HEENT: pupils equal round and pupils reactive to light. Cardiovascular: regular rate and rhythm, normal S1 and S2, no rub, murmurs, or gallop. Respiratory: normal breath sounds, no wheezes or crackles. No chest wall deformity or tenderness. Abdomen: bowel sounds present and soft. Pertinent negatives noted - not tender. Extremities: no deformity, no edema or tenderness, no joint swelling or clubbing. Neurological: normal cognition and motor skills. Gait normal. No weakness or sensory deficit. PAIN ASSESSMENT: VITALS: BP 139/85 Pulse 79 Temp 98.6 Resp 18 Ht 6' 1 (1.85m) Wt 260 lb (117.9kg) SpO2 98% LMP 10/16/2018 BMI 34.31 kg/(m^2). Diagnostic tests reviewed for today's visit: Lab Value Units Date High Low HB No results within date range. HCT No results within date range. WBC No results within date range. PLT No results within date range. NA No results within date range. K No results within date range. GLUC No results within date range. BUN No results within date range. CREAT No results within date range. PTSEC No results within date range. INR No results within date range. APTT No results within date range. ALT No results within date range. AST No results within date range. TBILI No results within date range. TSH No results within date range. Lab Value Units Date High Low HCGQT No results within date range. UHCG No results within date range. HCG, BODY* No results within date range. Lab Value Units Date High Low ABORHD No results within date range. ABSCREEN No results within date range. Hemoglobin A1C (%) Date Value 07/24/2023 5.8 01/10/2023 8.2 Hemoglobin A1C (POCT) (%) Date Value 07/18/2022 8.6 No results found for this or any previous visit (from the past 8760 hour(s)). No results found for this or any previous visit (from the past 07761 hour(s)). ARISCAT risk index interpretation 0 to 25 points: Low risk: 1.6% pulmonary complication rate 26 to 44 points: Intermediate risk: 13.3% pulmonary complication rate 45 to 123 points: High risk: 42.1% pulmonary complication rate Implantable Devices: None The Following Tests/Procedures Have Been Initiated: No orders in [facility] for PAT visit by surgeon Assessment/Plan Excess skin [L98.7] PLAN Planned Procedure: Procedure(s): ABDOMINOPLASTY UMBILICAL TRANSPOSITION AND FASCIAL PLICATION (N/A) PANNICULECTOMY (N/A) I spent a total of 59 minutes on the date of the service which included preparing to see the patient, [id number] patient care, completing clinical documentation, obtaining and/or reviewing separately obtained history, performing a medically appropriate examination, counseling and educating the pat ient/family/caregiver, communicating results to the patient/family/caregiver, and care coordination(not separately reported). Instructions Given to Patient: Instructions located in the after visit summary. Patient given verbal and written preop instructions and voices comprehension and compliance. SIGNATURE: Shawna Reilly APRN.CNP PATIENT NAME: Cindy Salcedo Page DATE: July 16, 2024 TIME: 9:30 AM PAGER/CONTACT #: [facility] History and physical note* Shawna Reilly APRN.CNP - 07/16/2024 9:00 AM EDT Images from the original note were not included. [facility] HISTORY AND PHYSICAL EXAMINATION SERVICE DATE: 07/16/2024 SERVICE TIME: 07:45 AM PRIMARY CARE PHYSICIAN: José Elizabeth MD Assessment Patient has the following medical conditions which may affect dianne-operative course: Problem List Items Addressed This Visit Cardiovascular Primary hypertension Current Assessment & Plan Managed by PCP and Controlled with meds. Endocrinology Controlled type 2 diabetes mellitus without complication, without long-term current use of insulin (HCC) Current Assessment & Plan Managed by PCP and Controlled with meds. Other Obesity, Class II, BMI 35-39.9 Current Assessment & Plan BMI 35 Preoperative examination - Primary Current Assessment & Plan Patient has the following medical conditions which may affect dianne-operative course addressed in assessment and plan today [place] Activity Status Index: METS: Do heavy work around the house, such as scrubbing floors, lifting or moving heavy furniture (8.00 METs) DASI Score: 8 Patient denies any chest pain or undue shortness of breath with the above physical activity. ARISCAT Score: Age: <=50 Preoperative SpO2: >=96% Respiratory infection in the last month: No Preoperative anemia: Yes Duration of surgery: >3 hrs Emergency procedure: No ARISCAT Score: ANESTHESIA FINDINGS: Intubation History: No history of difficult intubation. No abnormal airway history Significant Anesthesia Considerations: potential slow emergence Airway History: No history of difficult airway No abnormal airway history I - PHYSICAL EVALUATION AIRWAY Patient intubated: No. DENTAL Dental findings: teeth intact and missing tooth/teeth. II - ANESTHESIA PLAN Anesthetic Plan: general Beta Khang Monitoring Plan Post Procedure Analgesic Plan Prepared for Surgery: . METS 8.80 Denies any CP/SOB with activity CONSULTS: Planned Anesthetic: general The Following Tests/Procedures Have Been Initiated: No orders of the defined types were placed in this encounter. REASON FOR VISIT: Cindy Brody is a 39 year old female who is scheduled for Procedure(s): ABDOMINOPLASTY UMBILICAL TRANSPOSITION AND FASCIAL PLICATION (N/A) PANNICULECTOMY (N/A) at the request of Sarah Moeller MD for routine H&P. My final recommendation will be communicated back to the requesting physician by way of shared medical recordor letter. Subjective The patient has the following: Assessment & Plan Preoperative examination Patient has the following medical conditions which may affect dianne-operative course addressed in assessment and plan today Obesity, Class II, BMI 35-39.9 BMI 34 Controlled type 2 diabetes mellitus without complication, without long-term current use of insulin (HCC) Managed by PCP and Controlled with Mounjaro and Metformin. Instructions provided by JO-ANN per PAT guidelines. Primary hypertension Managed by PCP and Controlled with meds. COVID-19 Immunization Status Overdue - Covid-19 Vaccine (2022- season) Never done 07/18/2022 Postponed until 07/18/2023 by Yesy Fernandez DO (Declined at this time) CHIEF COMPLAINT: The reason for this visit is to perform a comprehensive review of the patient's past medical history, assess their current health status and obtain any additional testing required based on anesthesia guidelines. We will also identify any potential anesthesia problems or contraindications to the planned procedure. HPI: Patient presents to [facility] for the above procedure. Patient lost 140 lbs over 1.9 months since she started using Mounjaro. Patient was able to go back to working out and increase her activity. Patient denies any other problems or concerns at this time. Risks and benefits of the procedure discussed by Surgeon and patient agreed to proceed with planned procedure. REVIEW OF SYSTEMS: General: See HPI. 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 No neurological symptoms or problems. Respiratory: No history of current cough or dyspnea, or pneumonia in the past 6 weeks. No history of respiratory/pulmonary symptoms or problems. Cardiovascular: Positive for: hypertension Negative for: chest pain, CHF, congenital heart defect, DVT/PE and hyperlipidemia. GI: Positive for: GERD Negative for: ascites, colon cancer, dysphagia and diverticulitis. : No history of dysuria, frequency or incontinence, stones or chronic kidney disease. No difficulty urinating, nocturia > 1 time per night or hematuria. 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 Negative for abnormal vaginal bleeding, abnormal vaginal discharge. Endocrine: Positive for: diabetes mellitus. Patient's diabetes mellitus is controlled by diet and oral agents. Negative for: hyperthyroidism, hypothyroidism and hyperparathyroidism. Hematology: No history of bleeding or clotting disorder. Patient is not taking anti-coagulation or platelet medications. No history of hematological symptoms or problems. Oncology: No history of CA metastasis, chemo within 30 days, or radiotherapy within 90 days. No history of oncological symptoms or problems. Psych: Controlled on its own Positive for: anxiety and depression. Musculoskeletal: Negative for joint pain or swelling, back pain or muscle pain. Skin: See HPI. PAST MEDICAL HISTORY No date: Anxiety No date: Diabetes mellitus (HCC) No date: Hypertension No date: Spinal stenosis PAST SURGICAL HISTORY No date: SECTION HX Comment: x3 No date: HYSTERECTOMY Comment: Partial FAMILY HISTORY Problem Relation Age of Onset Osteoporosis Mother Hypertension Father Diabetes Father Social History Tobacco Use Smoking status: Former Current packs/day: 0.00 Types: Cigarettes Start date: 2010 Quit date: 2012 Years since quittin.6 Smokeless tobacco: Never Vaping Use Vaping status: Never Used Substance Use Topics Alcohol use: Not Currently Drug use: Never Prior to Admission medications as of 07/16/24 0905 Medication Sig Last Dose Taking metFORMIN (GLUCOPHAGE) 500 mg tablet Take 1 tablet by mouth two times a day. Taking Yes tirzepatide (MOUNJARO) 15 mg/0.5 mL pen injector Inject 15 mg subcutaneously one time a week. Taking Yes metoprolol succinate ER (TOPROL XL) 100 mg Take 1 tablet by mouth daily at bedtime. Taking Yes DULoxetine (CYMBALTA) 60 mg capsule Take 1 capsule by mouth once daily. Taking Yes cyclobenzaprine (FLEXERIL) 5 mg tablet Take 1 tablet by mouth two times a day as needed for muscle spasm. Patient taking differently: Take 10 mg by mouth two times a day as needed for muscle spasm. Taking Yes ergocalciferol 50,000 unit capsule (VITAMIN D2, DRISDOL) Take 1 capsule by mouth one time a week. Taking Yes topiramate (TOPAMAX) 100 mg tablet Take 1 tablet by mouth daily at bedtime. traMADol (ULTRAM) 50 mg tablet Take 50 mg by mouth. Patient not taking: Reported on 04/03/2024 Not Taking lidocaine (LIDODERM) 5 % Apply 1 Patch as directed once daily. to affected area. Remove patch after12 hours. Patient not taking: Reported on 03/21/2024 Medication Comments documented by Sabra Power LPN on 11/11/2022 at 1315. 76 ALLERGIES Allergen Reactions Acetaminophen Other: See Comments Dihydroaminopryidin* Diarrhea, Hives, Itching, Rash Hydrocodone Hives, Rash Oxycodone-Acetamino* Diarrhea, Rash, Vomiting Sulfa (Sulfonamide * Diarrhea, Rash Sulfamethoxazole-Tr* Diarrhea, Itching, Rash Victoza [Liraglutid* Rash Wellbutrin [Bupropi* Intolerance Suicidal thoughts Azithromycin Diarrhea Objective PHYSICAL EXAM: General: alert and oriented and healthy appearance. Pertinent negatives noted - not distressed. Skin: Defer to surgeon . HEENT: pupils equal round and pupils reactive to light. Cardiovascular: regular rate and rhythm, normal S1 and S2, no rub, murmurs, or gallop. Respiratory: normal breath sounds, no wheezes or crackles. No chest wall deformity or tenderness. Abdomen: bowel sounds present and soft. Pertinent negatives noted - not tender. Extremities: no deformity, no edema or tenderness, no joint swelling or clubbing. Neurological: normal cognition and motor skills. Gait normal. No weakness or sensory deficit. PAIN ASSESSMENT: VITALS: BP 139/85 Pulse 79 Temp 98.6 Resp 18 Ht 6' 1 (1.85m) Wt 260 lb (117.9kg) SpO2 98% LMP 10/16/2018 BMI 34.31 kg/(m^2). Diagnostic tests reviewed for today's visit: Lab Value Units Date High Low HB No results within date range. HCT No results within date range. WBC No results within date range. PLT No results within date range. NA No results within date range. K No results within date range. GLUC No results within date range. BUN No results within date range. CREAT No results within date range. PTSEC No results within date range. INR No results within date range. APTT No results within date range. ALT No results within date range. AST No results within date range. TBILI No results within date range. TSH No results within date range. Lab Value Units Date High Low HCGQT No results within date range. UHCG No results within date range. HCG, BODY* No results within date range. Lab Value Units Date High Low ABORHD No results within date range. ABSCREEN No results within date range. Hemoglobin A1C (%) Date Value 07/24/2023 5.8 01/10/2023 8.2 Hemoglobin A1C (POCT) (%) Date Value 07/18/2022 8.6 No results found for this or any previous visit (from the past 8760 hour(s)). No results found for this or any previous visit (from the past 38336 hour(s)). ARISCAT risk index interpretation 0 to 25 points: Low risk: 1.6% pulmonary complication rate 26 to 44 points: Intermediate risk: 13.3% pulmonary complication rate 45 to 123 points: High risk: 42.1% pulmonary complication rate Implantable Devices: None The Following Tests/Procedures Have Been Initiated: No orders in [facility] for PAT visit by surgeon Assessment/Plan Excess skin [L98.7] PLAN Planned Procedure: Procedure(s): ABDOMINOPLASTY UMBILICAL TRANSPOSITION AND FASCIAL PLICATION (N/A) PANNICULECTOMY (N/A) I spent a total of 59 minutes on the date of the service which included preparing to see the patient, [id number] patient care, completing clinical documentation, obtaining and/or reviewing separately obtained history, performing a medically appropriate examination, counseling and educating the pat ient/family/caregiver, communicating results to the patient/family/caregiver, and care coordination(not separately reported). Instructions Given to Patient: Instructions located in the after visit summary. Patient given verbal and written preop instructions and voices comprehension and compliance. SIGNATURE: Shawna Reilly APRN.CNP PATIENT NAME: Cindy Salcedo Page DATE: July 16, 2024 TIME: 9:30 AM PAGER/CONTACT #: documented in this encounterThe [facility] System08-19-2024 Instructions* Patient Instructions* Shawna Reilly APRN.CNP - 07/15/2024 3:38 PM EDT PATIENT PREOPERATIVE INSTRUCTIONS Your surgeon has scheduled for your procedure at this surgery center: [facility] and [address], [place] [address] Please read below carefully for your personalized instructions. DATE FOR SURGERY : 07/24/24 Your surgeon's office will provide you with your ARRIVAL TIME for surgery. -If you have not received an arrival time by the afternoon before your surgery date, please follow up with your surgeon's office. - If you are scheduled for Monday surgery, please make sure you have your arrival time by Monday afternoon. Requirement for Vaccinations : 72-hour period between getting vaccine and date of surgery. Dietary Restrictions : Dietary Restrictions:Please Follow Surgeons office Restrictions First :Bariatric Patients please follow pre-op office instructions :NOAM Novak for ERAS patients ALL OTHER PATIENTS - Nothing to eat after midnight. You may have 12 ounces of clear liquids ( water, Gatorade, apple juice, carbonated beverage, clear tea or black coffee) until 4 hours before your surgery. This is important because if you do, your surgery may have to be cancelled Blood Thinning Medications: - Stop NSAIDS (Ibuprofen, Advil, Aleve, Motrin, Celebrex, Mobic, etc.) 7 days before surgery, as directed by your surgeon. You may take Tylenol (Acetaminophen) or any of your pain medications that do not contain aspirin orNSAIDS as needed. IF YOU TAKE ANY OF THE FOLLOWING BLOOD THINNERS, PLEASE CONTACT YOUR SURGEON AND THE PHYSICIAN WHO PRESCRIBES IT FOR YOU IN ORDER TO GET PERIOPERATIVE INSTRUCTIONS SOON POSSIBLE. BLOOD THINNERS: Aspirin , Coumadin, Plavix, Eliquis, Pradaxa, Xarelto, Lovenox, Brilinta, Effient, Savaysa, Arixtra, etc - Stop Vitamin E, fish oil, multivitamins, Marijuana, CBD oil and other over the counter herbals and dietary supplements 7 days before surgery. -This would not apply to cancer patients who are prescribed Marinol or any other prescription form on marijuana or CBD. Medications: Approved medications to take the morning of surgery with a sip of water: BP, HCTZ, Heart, thyroid, psych, seizure, and pain medications excluding NSAIDS. HOLD - CHANDLER inhibitors (Angiotensin-converting enzyme inhibitors) and ARBs (Angiotensin II receptor blockers) Day of surgery. Patients with Diabetes Mellitus: Please follow up with the provider that manages your diabetes and how to prepare you for surgery. Do not take the following medications Morning of surgery: Trajenta, Metformin, Actos/Pioglitazone and Amaryl/Glimepiride. For the following Medications, please HOLD 2 DAYS PRIOR TO SURGERY: Glucotrol/Glipizide, Januvia/Sitagliptin, Glyburide, Prandin/Repaglinide, Starlix/Nateglinide, Symlin/Pramlintide For the following Medications, please HOLD 3 DAYS PRIOR TO SURGERY: Canagliflozin/Invokana, Dapagliflozin/Farxiga, Empagliflozin/Jardiance, Invokamet/ canagliflozin and metformin, Xigduo XR/ dapagliglozin and metformin, Glyxambi/ empagliflozin and metformin, Syndardy/ empagliflozin and metformin For the following Medications, please HOLD 4 DAYS PRIOR TO SURGERY: Ertugliflozin/Steglatro For the following Medications, please HOLD 7 DAYS PRIOR TO SURGERY: GLP-1 AGONIST: Adlyxin (lixisenatide), Bydureon BCise (exenatide suspension), Byetta (exenatide), Mounjaro (tirzepatide), Ozempic (semaglutide injection), Rybelsus (semaglutide tablets), Tanzeum (albiglutide), Trulicity (dulaglutide), Victoza (liraglutide), Wegovy (semaglutide), Saxenda (liraglutide) Insulin Medication Instructions: Please follow up with the provider that manages your Insulin and how to prepare you for surgery. If you start any new medications after today's visit, please contact the surgeon's office. Pain Medications: Tylenol for pain as needed and if you are not allergic to. Important Reminders: - Candy, mints, gum and tobacco products are NOT permitted the morning of surgery. - Hearing aids, dentures and glasses may be worn the morning of surgery. - NO jewelry, body piercings, makeup, hairpins or contacts are to be worn the day of surgery. -Oral hygiene and a shower or bath (See Below ) is required the evening before or the morning of surgery. - NO lotion, creams, powders or deodorants on the skin the day of surgery -Wear loose, comfortable clothing that will accommodate bandages. -Your length of stay will be determined by your surgeon - You will need to have someone else (Family or friend) drive you home once discharged from the hospital. You are not allowed to drive yourself home after surgery. - YOU MUST HAVE A RESPONSIBLE FORMS EXAMINER TAKE YOU HOME. A PADDED PRODUCTS FINISHER, CAB OR UBER FORMS EXAMINER CANNOT BE MADEA RESPONSIBLE FORMS EXAMINER. - We recommend that a responsible person stays with you overnight to take care of you. - You cannot stay in a hotel alone after outpatient surgery. You will not be permitted to have yoursurgery, if you do not have someone to take care of you. Personal Belongings: - Leave ALL valuables and money at home or with family members. - You will need a form of ID and insurance card to check in the morning of surgery. If you develop symptoms such as a fever, cold, or flu, or have other changes to your health within TWO DAYS of scheduled surgery or the morning of surgery, please contact the surgery center above. Visitors to any [facility] facility: An individual who is sick should not visit. Visitors to patients with COVID-19 must follow these guidelines, which include wearing a mask, eye protection, gown and gloves. [facility]: [facility] Pre surgery- One visitor in Pre-surgery due to limited spaced ASC PACU- No visitors in PACU unless it's a minor due to limited spaced. Personal Belongings: -Please have your photo ID and insurance cards. -If you do not have a copy of advance directives on file with us, please bring a copy with you on the day of surgery. The anti-bacterial soap (Hibiclens) should be used TWICE prior to surgery: The night before surgery and the morning of surgery: - If you plan to wash your hair, do so with your regular shampoo. Then rinse hair and body thoroughly to remove any shampoo residue. - Wash your face with water or your regular soap. - Thoroughly rinse your body with water from the neck down - Apply Hibiclens directly on your skin or on a wet washcloth and wash gently. Move away from the shower stream when applying Hibiclens to ensure the CHG binds to the skin. - Pay special attention to the area where your surgery will be performed - Rinse thoroughly - Apply clean bedding and clean clothing after shower Do not use your regular soap after applying and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 Negative for cyanotic, diaphoretic or pallor HEENT Reports moist mucous membranes HEENT Narrative: Posterior pharynx is normal. Ears and TMs are normal. Nares patent with no discharge. Eyes PERRL General Eye ED: Negative for pale conjunctiva or scleral icterus Neck no lymphadenopathy, supple and no JVD Neck Narrative: Patient complained of pain with movement of the larynx. There is no inspiratoryexpiratory. Resp normal respiratory effort and clear to auscultation bilaterally Cardio regular rate, regular rhythm, S1 normal heart sound, S2 normal heart sound and no murmurs Extremity normal to inspection Neuro oriented x3, CN's II-XII intact bilaterally and no sensory deficits noted Sensorium / Orientation: alert Psych mental status grossly normal Skin no rashes or lesions noted, no wounds and skin turgor normal General Skin Exam: elasticity normal; Negative for jaundice or pallor MDM MDM MDM Narrative Medical decision making narrative: Roderfield score is 0; therefore, a rapid strep was not obtained. Because patient complains of pain with movement of the larynx has a hoarse voice and reports pain with swallowing with a benign appearing posterior pharynx obtain soft tissue x- ray of the neck looking for evidence of epiglottitis or retropharyngealabscess. Doubt the latter since patient does not have any significant neck stiffness or limitation of movement. History & Record Review Additional record(s) reviewed:: Prior outpatient record and Prior ED visit Radiography Chest X-Ray - ED: 2 View and Read by ED Physician (2 view x-ray of the soft tissue neck is interpreted by me as normal at 1353. The epiglottis is normal. The prevertebral space is normal. There is no sublingual tonsillitis noted either.) Treatment and Re-Evaluation :: With patient having slight cough that is nonproductive patient will be treated symptomatically for laryngitis. Since she has no fever and no abnormality x-rayantibiotics were not ordered. Her symptoms have been present for less than a week. And initially she had mild upper respiratory symptoms. Discharge Plan Triage Chief Complaint: Sore Throat ED Provider: Louie Basurto Dx/Rx/DC Orders Clinical Impression: Acute laryngitis Instructions: ED Laryngitis Prescriptions: No Action gabapentin 400 mg Capsule 400 mg PO BID metformin 1,000 mg Tablet 1,000 mg PO BID ergocalciferol (vitamin D2) [Vitamin D2] 1,250 mcg (50,000 unit) Capsule 1,250 mcg PO QWEEK hydroxyzine HCl 10 mg Tablet 10 mg PO TID PRN (Reason: Anxiety) lisinopril 40 mg Tablet 40 mg PO DAILY bupropion HCl [Wellbutrin XL] 300 mg Tablet Extended Release 24 Hr 300 mg PO DAILY duloxetine [Cymbalta] 60 mg Capsule,Delayed Release(Dr/Ec) 60 mg PO DAILY Invokana 300 mg Tablet 300 mg PO DAILY guaifenesin [Mucinex] 600 mg Tablet Extended Release 12hr 600 mg PO BID metoprolol succinate 100 mg Capsule,Sprinkle,Er 24hr 100 mg PO DAILY ibuprofen 600 mg tablet 600 mg PO Q6H PRN PRN (Reason: fever or pain) Qty: 20 0RF amoxicillin-pot clavulanate 875-125 mg tablet 1 tab PO BID Qty: 14 0RF Primary Care Provider: Care Physician,No Primary Referrals: Moshe Mason MD [Med Staff - Intellectual Property Lawyer] - 1 Week if not improving Care Physician,No Primary [Primary Care Provider] - Activity Restrictions/Additional Instructions: Chloraseptic spray or Cepastat lozenges for throat pain. Your symptoms will improve the last few talk. Disposition Disposition: Home, Self Care What to do if you have Problems For any increased pain, shortness of breath, bleeding, nausea or vomiting, chestpain, or any unexpected problems, contact your Primary Care Provider. Call [facility] ([phone]) or report to the closest Emergency Room. Call 911 if necessary. 03/11/23 1356 <Electronically signed by Louie Basurto MD> Cosigner Signature (if applicable): CC: No Primary Care Physician ~ Signed [facility] Work Phone: [phone]) 392-490804-13-2023 Miscellaneous Notes* Telephone Encounter - Ivett Kaminski LPN - 03/09/2023 3:29 PM EDT Open in error documented in this encounterThe Metrohealth System03-17-2023 Miscellaneous Notes* Telephone Encounter - Josy Escobedo - 02/10/2023 9:14 AM EDT Pharmacy faxed requesting the following [...] Diarrhea, Itching, Rash Victoza [Liraglutid* Rash (home) [phone] (cell) Last Office Visit Date: 09/28/2022 Last [facility] Visit: Visit date not found Future Appointment: Visit date not found The patients preferred pharmacy has been captured for this encounter? yes Request is for script(s) to be escript to pharmacy. Josy Escobedo documented in this encounterThe Metrohealth System03-09-2023 Miscellaneous Notes* Telephone Encounter - Ranjana Casper MA - 02/02/2023 4:48 PM EST Patient called back and I relayed message. No other questions at this time. Ranjana Casper MA * Telephone Encounter - Ranjana Casper MA - 02/02/2023 4:40 PM EST Attempted to call patient however there was no answer and voicemail was full. Sent patient a [employer] message. Ranjana Casper MA * Telephone Encounter - Fela Gan MD - 02/02/2023 4:34 PM EST She can double up on to Topamax. But also recommend her to discuss regarding tapering down gabapentin with her PCP so that they are aware of this * Telephone Encounter - Ranjana Casper MA - 02/02/2023 3:44 PM EST Phone call from patient stating that she has been doing great on Mounjaro. Patient states she spokewith you regarding her gabapentin at her office visit on 01/10. She states she wants to get off of the gabapentin and possibly double the topiramate and wanted to see if that was okay. Ranjana Casper MA documented in this encounterThe Metrohealth System03-09-2023 Miscellaneous Notes* Telephone Encounter - Ranjana Casper MA - 02/02/2023 3:43 PM EST Patient called the office and is requesting an increase to the 5 mg dose. Ranjana Casper MA * Telephone Encounter - Judy Alanis Ma - 02/02/2023 3:17 PM EST Pharmacy sent a Cloudadmin message requesting the following refill. Requested Prescriptions Pending Prescriptions Disp Refills MOUNJARO 2.5 mg/0.5 mL pen injector [Pharmacy Med Name: MOUNJARO 2.5 MG/0.5 ML PEN] 2 mL 0 Sig: inject 0.5 milliliters subcutaneously every week Next Appointment: 03/17/2023 Patient Phone numbers: [phone] (home) Request is for script(s) to be escript to pharmacy. Judy Alanis Ma documented in this encounterThe Metrohealth System03-09-2023 Miscellaneous Notes* Telephone Encounter - Josy Escobedo - 02/02/2023 8:42 AM EST Pharmacy faxed requesting the following [...] Diarrhea, Rash Sulfamethoxazole-Tr* Diarrhea, Itching, Rash (home) [phone] (cell) Last Office Visit Date: 09/28/2022 Last Distance Health Visit: Visit date not found Future Appointment: Visit date not found The patients preferred pharmacy has been captured for this encounter? yes Request is for script(s) to be escript to pharmacy. Josy Escobedo documented in this encounterThe Metrohealth System02-17-2023 Miscellaneous Notes* Telephone Encounter - Sabra Power LPN - 01/13/2023 11:36 AM EST Pharmacy faxed requesting the following refill Refill(s) Requested: Requested Prescriptions Pending Prescriptions Disp Refills ibuprofen (MOTRIN) 600 mg tablet 120 tablet 0 Sig: TAKE 1 TAB BY MOUTH EVERY 6 HOURS NEEDED FOR FEVER OR PAIN ALLERGIES Allergen Reactions Dihydroaminopryidin* Diarrhea, Hives, Itching, Rash Hydrocodone Hives, Rash Oxycodone-Acetamino* Diarrhea, Rash, Vomiting Sulfa (Sulfonamide * Diarrhea, Rash Sulfamethoxazole-Tr* Diarrhea, Itching, Rash (home) [phone] (cell) Last Office Visit Date: 09/28/2022 Last Distance Health Visit: Visit date not found Future Appointment: Visit date not found The patients preferred pharmacy has been captured for this encounter? yes Request is for script(s) to be escript to pharmacy. Sabra Power LPN documented in this encounterThe Metrohealth System02-14-2023 Miscellaneous Notes* Telephone Encounter - Josy Escobedo - 01/10/2023 2:23 PM EST Pharmacy faxed requesting the following [...] Diarrhea, Rash Sulfamethoxazole-Tr* Diarrhea, Itching, Rash (home) [phone] (cell) Last Office Visit Date: 09/28/2022 Last [facility] Visit: Visit date not found Future Appointment: Visit date not found The patients preferred pharmacy has been captured for this encounter? yes Request is for script(s) to be escript to pharmacy. Josy Escobedo documented in this encounterThe Metrohealth System02-14-2023 History of Past illness Narrative* Problem Noted Date Diagnosed Date Resolved Date Body mass index 40.0-44.9, adult 01/10/2023 07/20/2023 Class 3 severe obesity with serious comorbidity in adult 01/10/2023 07/20/2023 documented as of this encounter (statuses as of 07/21/2023) [facility] History of Past illness Narrative* Problem Noted Date Diagnosed Date Resolved Date Body mass index 40.0-44.9, adult 01/10/2023 07/20/2023 Class 3 severe obesity with serious comorbidity in adult 01/10/2023 07/20/2023 documented as of this encounter (statuses as of 07/27/2023) [facility] History of Past illness Narrative* Problem Noted Date Diagnosed Date Resolved Date Body mass index 40.0-44.9, adult 01/10/2023 07/20/2023 Class 3 severe obesity with serious comorbidity in adult 01/10/2023 07/20/2023 documented as of this encounter (statuses as of 08/07/2023) [facility] of Past illness Narrative* Problem Noted Date Diagnosed Date Resolved Date Body mass index 40.0-44.9, adult 01/10/2023 07/20/2023 Class 3 severe obesity with serious comorbidity in adult 01/10/2023 07/20/2023 documented as of this encounter (statuses as of 08/08/2023) [facility] History of Past illness Narrative* Problem Noted Date Diagnosed Date Resolved Date Body mass index 40.0-44.9, adult 01/10/2023 07/20/2023 Class 3 severe obesity with serious comorbidity in adult 01/10/2023 07/20/2023 documented as of this encounter (statuses as of 08/22/2023) [facility] History of Past illness Narrative* Problem Noted Date Diagnosed Date Resolved Date Body mass index 40.0-44.9, adult 01/10/2023 07/20/2023 Class 3 severe obesity with serious comorbidity in adult 01/10/2023 07/20/2023 documented as of this encounter (statuses as of 09/08/2023) [facility] History of Past illness Narrative* Problem Noted Date Diagnosed Date Resolved Date Body mass index 40.0-44.9, adult 01/10/2023 07/20/2023 Class 3 severe obesity with serious comorbidity in adult 01/10/2023 07/20/2023 documented as of this encounter (statuses as of 09/27/2023) [facility] History of Past illness Narrative* Problem Noted Date Diagnosed Date Resolved Date Body mass index 40.0-44.9, adult 01/10/2023 07/20/2023 Class 3 severe obesity with serious comorbidity in adult 01/10/2023 07/20/2023 documented as of this encounter (statuses as of 10/13/2023) [facility] History of Past illness Narrative* Problem Noted Date Diagnosed Date Resolved Date Uncontrolled type 2 diabetes mellitus with hyperglycemia 01/10/2023 10/13/2023 Body mass index 40.0-44.9, adult 01/10/2023 07/20/2023 Class 3 severe obesity with serious comorbidity in adult 01/10/2023 07/20/2023 documented as of this encounter (statuses as of 10/13/2023) [facility] of Past illness Narrative* Problem Noted Date Diagnosed Date Resolved Date Uncontrolled type 2 diabetes mellitus with hyperglycemia 01/10/2023 10/13/2023 Body mass index 40.0-44.9, adult 01/10/2023 07/20/2023 Class 3 severe obesity with serious comorbidity in adult 01/10/2023 07/20/2023 documented as of this encounter (statuses as of 10/14/2023) [facility] of Past illness Narrative* Problem Noted Date Diagnosed Date Resolved Date Uncontrolled type 2 diabetes mellitus with hyperglycemia 01/10/2023 10/13/2023 Body mass index 40.0-44.9, adult 01/10/2023 07/20/2023 Class 3 severe obesity with serious comorbidity in adult 01/10/2023 07/20/2023 documented as of this encounter (statuses as of 01/05/2024) [facility] of Past illness Narrative* Problem Noted Date Diagnosed Date Resolved Date Uncontrolled type 2 diabetes mellitus with hyperglycemia 01/10/2023 10/13/2023 Body mass index 40.0-44.9, adult 01/10/2023 07/20/2023 Class 3 severe obesity with serious comorbidity in adult 01/10/2023 07/20/2023 documented as of this encounter (statuses as of 01/11/2024) [facility] of Past illness Narrative* Problem Noted Date Diagnosed Date Resolved Date Uncontrolled type 2 diabetes mellitus with hyperglycemia 01/10/2023 10/13/2023 Body mass index 40.0-44.9, adult 01/10/2023 07/20/2023 Class 3 severe obesity with serious comorbidity in adult 01/10/2023 07/20/2023 documented as of this encounter (statuses as of 01/12/2024) [facility] of Past illness Narrative* Problem Noted Date Diagnosed Date Resolved Date Uncontrolled type 2 diabetes mellitus with hyperglycemia 01/10/2023 10/13/2023 Body mass index 40.0-44.9, adult 01/10/2023 07/20/2023 Class 3 severe obesity with serious comorbidity in adult 01/10/2023 07/20/2023 documented as of this encounter (statuses as of 01/15/2024) [facility] of Past illness Narrative* Problem Noted Date Diagnosed Date Resolved Date Uncontrolled type 2 diabetes mellitus with hyperglycemia 01/10/2023 10/13/2023 Body mass index 40.0-44.9, adult 01/10/2023 07/20/2023 Class 3 severe obesity with serious comorbidity in adult 01/10/2023 07/20/2023 documented as of this encounter (statuses as of 01/15/2024) [facility] History of Past illness Narrative* Problem Noted Date Diagnosed Date Resolved Date Uncontrolled type 2 diabetes mellitus with hyperglycemia 01/10/2023 10/13/2023 Body mass index 40.0-44.9, adult 01/10/2023 07/20/2023 Class 3 severe obesity with serious comorbidity in adult 01/10/2023 07/20/2023 documented as of this encounter (statuses as of 01/19/2024) [facility] History of Past illness Narrative* Problem Noted Date Diagnosed Date Resolved Date Uncontrolled type 2 diabetes mellitus with hyperglycemia 01/10/2023 10/13/2023 Body mass index 40.0-44.9, adult 01/10/2023 07/20/2023 Class 3 severe obesity with serious comorbidity in adult 01/10/2023 07/20/2023 documented as of this encounter (statuses as of 01/25/2024) [facility] of Past illness Narrative* Problem Noted Date Diagnosed Date Resolved Date Uncontrolled type 2 diabetes mellitus with hyperglycemia 01/10/2023 10/13/2023 Body mass index 40.0-44.9, adult 01/10/2023 07/20/2023 Class 3 severe obesity with serious comorbidity in adult 01/10/2023 07/20/2023 documented as of this encounter (statuses as of 01/29/2024) [facility] of Past illness Narrative* Problem Noted Date Diagnosed Date Resolved Date Uncontrolled type 2 diabetes mellitus with hyperglycemia 01/10/2023 10/13/2023 Body mass index 40.0-44.9, adult 01/10/2023 07/20/2023 Class 3 severe obesity with serious comorbidity in adult 01/10/2023 07/20/2023 documented as of this encounter (statuses as of 02/01/2024) [facility] of Past illness Narrative* Problem Noted Date Diagnosed Date Resolved Date Uncontrolled type 2 diabetes mellitus with hyperglycemia 01/10/2023 10/13/2023 Body mass index 40.0-44.9, adult 01/10/2023 07/20/2023 Class 3 severe obesity with serious comorbidity in adult 01/10/2023 07/20/2023 documented as of this encounter (statuses as of 02/13/2024) [facility] History of Past illness Narrative* Problem Noted Date Diagnosed Date Resolved Date Uncontrolled type 2 diabetes mellitus with hyperglycemia 01/10/2023 10/13/2023 Body mass index 40.0-44.9, adult 01/10/2023 07/20/2023 Class 3 severe obesity with serious comorbidity in adult 01/10/2023 07/20/2023 documented as of this encounter (statuses as of 02/13/2024) [facility] History of Past illness Narrative* Problem Noted Date Diagnosed Date Resolved Date Uncontrolled type 2 diabetes mellitus with hyperglycemia 01/10/2023 10/13/2023 Body mass index 40.0-44.9, adult 01/10/2023 07/20/2023 Class 3 severe obesity with serious comorbidity in adult 01/10/2023 07/20/2023 documented as of this encounter (statuses as of 02/15/2024) [facility] History of Past illness Narrative* Problem Noted Date Diagnosed Date Resolved Date Uncontrolled type 2 diabetes mellitus with hyperglycemia 01/10/2023 10/13/2023 Body mass index 40.0-44.9, adult 01/10/2023 07/20/2023 Class 3 severe obesity with serious comorbidity in adult 01/10/2023 07/20/2023 documented as of this encounter (statuses as of 02/28/2024) [facility] Nurse Note* Ranjana Casper MA - 01/10/2023 [...] Mass: 8.6 lb Basal Metabolic Rate (BMR): 65311 kJ / 2462 kcal Metabolic Age: 52 Visceral Fat Ratin Body Mass Index (BMI): 44.3 [place] Body Weight: 162.2 lb Degree of Obesity: 101.5% Ranjana Casper MA documented in this encounterThe [facility] Instructions* Patient Instructions* Fela Gan MD - [...] per day. Low-carbohydrate diet -- Low- and lbum-aot-mvqjpwxpmjwy diets (eg, Atkins diet, Total Prestige diet) have become popular ways to lose weight quickly. With a ujce-foy-oxtweugdmglk diet, you eat between 0 and 60 [...] do not contain carbohydrates. Side effects of xwth-fzi-hvxkmzpbexuq diets can include constipation, headache, bad breath, [...] and arenot recommended. A doctor, nurse, or bath mix operator can help you find a safe and effective way to lose weight and keep it off. Adapted from [facility] My opinion 3 hour Rule: -last meal [...] as visual guide to low carb food: Https://www.dietdoctor.com/ ( visual guide for low carb diet) [...] like a plant based meal replacement called Oncimmune Nutrition - can mix w froz berries [...] Good examples of appsto track calories are MyFITNESSPAL, LOSE IT. Some patient have found FOODUCATE [...] Instructions for Injecting Mounjaro: https://www.youtube.com/watch?v=nxnhBdyTSZ0 Savings Card: https://www.Moxtra/savings-resources Link to Computer Equipment Repairer Website [employer] Medication Guide: https://pi.[employer].Emulate/us/wsvcelbk-lw-oc.pdf?s=mg Written pen instructions: https://uspl.[employer].com/mounjaro/mounjaro.html#ug0 Tirzepatide: Patient drug information What is Mounjaro? [...] SUMMARY WITH WARNINGS Important Facts About Mounjaro (auxl-URLW-MO). It is also known as tirzepatide. Mounjaro [...] effects. You can report side effects at 6-074-NSE-6203 or www.fda.gov/medwatch. Before using Your healthcare provider [...] you take any other prescription medicines or jjhf-jwb-bxvxmkk drugs, vitamins, or herbal supplements? How to [...] promptly. Learn more For more information, call 0-175-FsfllKu ( ) or go to www.[employer]. This information does not take the place of talking with your healthcare provider. Be sure to talk to your healthcare provider about Mounjaro and how to take it. Your healthcare provider is the best person to help you decide if Mounjaro is right for you. Mounjaro and its delivery device base are trademarks owned or licensed by [employer], its subsidiaries, or affiliates. YUSUF VIERA CBS MARCH2022 Access Jobaline Online for additional drug information, tools, and databases. Copyright [employer]. All rights reserved. Contributor Disclosures (For additional information see Tirsamuelpatide: Drug information) You must carefully read the Consumer Information [...] much, and when it happened. Last Reviewed [id number] Consumer Information Use and Disclaimer This generalized [...] or approved for treating a specific patient. [employer]. and its affiliatesdisclaim any warranty or liability relating to this information or the use thereof. The use of thisinformation is governed by the Terms of Use, available at https://www.Wututu.com/en/know/uubijsai-cyrkonmncfvnf-fbebc. - Rx metformin, risks and benefits discussed at length. The pt understands the potential side effects (including gastrointestinal problems) and is instructed to increase the dose as tolerated. documented in this encounterThe [facility] History of Present illness Narrative* Fela Gan MD - 01/10/2023 8:18 AM EST Images from the original note were not included. Fela Gan MD [address], [facility] [address] [employer] [place] [phone] SUBJECTIVE: Cindy Brody is a 37 year old female with [...] drinks Here and there tea / cofffee [place] juice Breakfast: 6:30 am : drive through [...] composite complication rate of , unstable angina, CT, DVT, PE, renal failure, and stroke occurred [...] BLD - CONSULT TO BARIATRIC SURGERY - NURYSPATIDE 2.5 MG/0.5 ML SUBCUTANEOUS PEN INJECTOR - [...] as visual guide to low carb food: [employer]Emulate Limit carb consumption to 80- 100 grams [...] Good examples of appsto track calories are Austhink SoftwarePAL, LOSE IT. Some patient have found FOODUCATE [...] like a plant based meal replacement called Oncimmune Nutrition - can mix w froz berries and almond milk) This note was partially generated using [employer] voice recognition system, and there may be some incorrect words, spellings, and punctuation that were not noted in checking the note before saving documented in this encounterThe [facility] Miscellaneous Notes* Telephone Encounter - Tash Kaur [...] Diarrhea, Rash Sulfamethoxazole-Tr* Diarrhea, Itching, Rash (home) [phone] (cell) Last Office Visit Date: 09/28/2022 Last [facility] Visit: Visit date not found Future Appointment: Visit date not found The patients preferred pharmacy has been captured for this encounter? yes Request is for script(s) to be escript to pharmacy. Tash Kaur LPN documented in this encounterThe [facility] Miscellaneous Notes* Telephone Encounter - Ivett Kaminski [...] Diarrhea, Rash Sulfamethoxazole-Tr* Diarrhea, Itching, Rash (home) [phone] (cell) Last Office Visit Date: 09/28/2022 Last [facility] Visit: Visit date not found Future Appointment: Visit date not found The patients preferred pharmacy has been captured for this encounter? yes Request is for script(s) to be faxed to pharmacy. Ivett Kaminski LPN documented in this encounterThe [facility]01-27-[facility]23 Miscellaneous Notes* Telephone Encounter - Britney Sprague LPN - 12/23/2022 11:07 AM EST Attempt made to contact patient to reschedule appointment. Phone went straight to . Mailbox is full. Britney Sprague LPN 12/23/22 11:07 AM * Telephone Encounter - Vida Paniagua - 12/23/2022 10:39 AM EST No Show Documentation Cindy S Page no showed for an appointment on 12/23/2022 with Mami Morin MD at 10:20A.M. She was scheduled [...] Is this the Third or Fourth No Show? No Vida Paniagua December 23, 2022 10:46 AM documented in this encounterThe [facility]01[facility]23 Miscellaneous Notes* Telephone Encounter - No BraydenKRISTIN nunez - 12/21/2022 2:10 PM EST Pharmacy faxed requesting the following refill Refill(s) Requested: Requested Prescriptions Pending Prescriptions Disp Refills lisinopril (ZESTRIL, PRINIVIL) 40 mg tablet 30 tablet 1 Sig: Take 1 tablet by mouth once daily. ALLERGIES Allergen Reactions Dihydroaminopryidin* Diarrhea, Hives, Itching, Rash Hydrocodone Hives, Rash Oxycodone-Acetamino* Diarrhea, Rash, Vomiting Sulfa (Sulfonamide * Diarrhea, Rash Sulfamethoxazole-Tr* Diarrhea, Itching, Rash (home) [phone] (cell) Last Office Visit Date: 09/28/2022 Last [facility] Visit: Visit date not found Future Appointment: Visit date not found The patients preferred pharmacy has been captured for this encounter? yes Request is for script(s) to be escript to pharmacy. No Oconnor LPN documented in this encounterThe [facility] Miscellaneous Notes* Telephone Encounter - No Oconnor [...] Diarrhea, Rash Sulfamethoxazole-Tr* Diarrhea, Itching, Rash (home) [phone] (cell) Last Office Visit Date: 09/28/2022 Last [facility] Visit: Visit date not found Future Appointment: Visit date not found The patients preferred pharmacy has been captured for this encounter? yes Request is for script(s) to be escript to pharmacy. No Oconnor LPN documented in this encounterThe [facility] Miscellaneous Notes* Telephone Encounter - Josy Gregg - 12/02/2022 8:16 AM EST Pharmacy faxed [...] Diarrhea, Rash Sulfamethoxazole-Tr* Diarrhea, Itching, Rash (home) [phone] (cell) Last Office Visit Date: 09/28/2022 Last [facility] Visit: Visit date not found Future Appointment: Visit date not found The patients preferred pharmacy has been captured for this encounter? yes Request is for script(s) to be escript to pharmacy. Josy Escobedo documented in this encounterThe [facility] System12-16-2022 Miscellaneous Notes* Telephone Encounter - Sabra Power [...] Diarrhea, Rash Sulfamethoxazole-Tr* Diarrhea, Itching, Rash (home) [phone] (cell) Last Office Visit Date: 09/28/2022 Last [facility] Visit: Visit date not found Future Appointment: Visit date not found The patients preferred pharmacy has been captured for this encounter? yes Request is for script(s) to be escript to pharmacy. Sabra Power LPN documented in this encounterThe [facility]12-[facility]-2022 Miscellaneous Notes* Telephone Encounter - Josy Escobedo [...] Diarrhea, Rash Sulfamethoxazole-Tr* Diarrhea, Itching, Rash (home) [phone] (cell) Last Office Visit Date: 09/28/2022 Last [facility] Visit: Visit date not found Future Appointment: Visit date not found The patients preferred pharmacy has been captured for this encounter? yes Request is for script(s) to be escript to pharmacy. Josy Escobedo documented in this encounterThe [facility]12[facility]22 Miscellaneous Notes* Telephone Encounter - Josy Escobedo [...] Diarrhea, Rash Sulfamethoxazole-Tr* Diarrhea, Itching, Rash (home) [phone] (cell) Last Office Visit Date: 09/28/2022 Last [facility] Visit: Visit date not found Future Appointment: Visit date not found The patients preferred pharmacy has been captured for this encounter? yes Request is for script(s) to be escript to pharmacy. Josy Escobedo documented in this encounterThe [facility]12-[facility]-2022 Miscellaneous Notes* Telephone Encounter - Sabra Power [...] Diarrhea, Rash Sulfamethoxazole-Tr* Diarrhea, Itching, Rash (home) [phone] (cell) Last Office Visit Date: 09/28/2022 Last [facility] Visit: Visit date not found Future Appointment: Visit date not found The patients preferred pharmacy has been captured for this encounter? yes Request is for script(s) to be escript to pharmacy. Sabra Power LPN documented in this encounterThe [facility]12-12-2022 Miscellaneous Notes* Telephone Encounter - Josy Escobedo [...] Diarrhea, Rash Sulfamethoxazole-Tr* Diarrhea, Itching, Rash (home) [phone] (cell) Last Office Visit Date: 09/28/2022 Last [facility] Visit: Visit date not found Future Appointment: Visit date not found The patients preferred pharmacy has been captured for this encounter? yes Request is for script(s) to be escript to pharmacy. Josy Escobedo documented in this encounterThe [facility]12-07-2022 Miscellaneous Notes* Telephone Encounter - Josy Escobedo [...] Diarrhea, Rash Sulfamethoxazole-Tr* Diarrhea, Itching, Rash (home) [phone] (cell) Last Office Visit Date: 09/28/2022 Last [facility] Visit: Visit date not found Future Appointment: Visit date not found The patients preferred pharmacy has been captured for this encounter? yes Request is for script(s) to be escript to pharmacy. Josy Escobedo documented in this encounterThe [facility]12-[facility]-2022 Miscellaneous Notes* Telephone Encounter - Josy Escobedo [...] Diarrhea, Rash Sulfamethoxazole-Tr* Diarrhea, Itching, Rash (home) [phone] (cell) Last Office Visit Date: 09/28/2022 Last [facility] Visit: Visit date not found Future Appointment: Visit date not found The patients preferred pharmacy has been captured for this encounter? yes Request is for script(s) to be escript to pharmacy. Josy Escobedo documented in this encounterThe [facility]11-28-2022 Miscellaneous Notes* Telephone Encounter - No Oconnor [...] Diarrhea, Rash Sulfamethoxazole-Tr* Diarrhea, Itching, Rash (home) [phone] (cell) Last Office Visit Date: 09/28/2022 Last [facility] Visit: Visit date not found Future Appointment: Visit date not found The patients preferred pharmacy has been captured for this encounter? yes Request is for script(s) to be escript to pharmacy. No Oconnor LPN documented in this encounterThe [facility]11-[facility]-2022 Miscellaneous Notes* Telephone Encounter - Tash Kaur [...] Diarrhea, Rash Sulfamethoxazole-Tr* Diarrhea, Itching, Rash (home) [phone] (cell) Last Office Visit Date: 09/28/2022 Last [facility] Visit: Visit date not found Future Appointment: Visit date not found The patients preferred pharmacy has been captured for this encounter? yes Request is for script(s) to be escript to pharmacy. Tash Kaur LPN documented in this encounterThe [facility]11-[facility]22 Miscellaneous Notes* Telephone Encounter - Tash Kaur [...] Diarrhea, Rash Sulfamethoxazole-Tr* Diarrhea, Itching, Rash (home) [phone] (cell) Last Office Visit Date: 09/28/2022 Last [facility] Visit: Visit date not found Future Appointment: Visit date not found The patients preferred pharmacy has been captured for this encounter? yes Request is for script(s) to be escript to pharmacy. Tash Kaur LPN documented in this encounterThe [facility]11-[facility]-2022 Miscellaneous Notes* Telephone Encounter - Josy Escobedo [...] Diarrhea, Rash Sulfamethoxazole-Tr* Diarrhea, Itching, Rash (home) [phone] (cell) Last Office Visit Date: 09/28/2022 Last [facility] Visit: Visit date not found Future Appointment: Visit date not found The patients preferred pharmacy has been captured for this encounter? yes Request is for script(s) to be escript to pharmacy. Josy Escobedo documented in this encounterThe [facility]11-04-2022 Miscellaneous Notes* Telephone Encounter - Anjel Cruz - 09/30/2022 10:26 AM EDT 09/29/2022: Patient is scheduled with Narda on 01/10/2023. Confirmation #[id number] documented in this encounterThe [facility] System11-03-2022 Miscellaneous Notes* Telephone Encounter - Anjel Shinichelle - 09/29/2022 9:24 AM EDT Referral to Bariatric Surgery entered into the [facility] portal on 09/29/2022. Confirmation number [id number]. documented in this encounterThe [facility]11-[facility]-2022 Miscellaneous Notes* Telephone Encounter - Anjel Cruz - 09/29/2022 9:15 AM EDT Referral to Obstetrics & Gynecology entered into the [facility] portal on 09/29/2022. Confirmation number [id number]. documented in this encounterThe [facility] System11-02-2022 Miscellaneous Notes* Telephone Encounter - Josy Escobedo [...] Diarrhea, Rash Sulfamethoxazole-Tr* Diarrhea, Itching, Rash (home) [phone] (cell) Last Office Visit Date: 09/28/2022 Last [facility] Visit: Visit date not found Future Appointment: Visit date not found The patients preferred pharmacy has been captured for this encounter? yes Request is for script(s) to be escript to pharmacy. Josy Escobedo documented in this encounterThe [facility]11-[facility]22 History of Present illness Narrative* Angelo Hinton MD - 09/28/2022 11:08 AM EDT Attending Note I discussed with resident. The patient was not seen or examined by the attending. I reviewed the resident's note. I agree with the resident's assessment and plan unless otherwise noted. Signature: Angelo Hinton MD Date: 09/28/2022. Time: 11:08 AM * [...] office in 06/2022, right after moving to [place] [and did not have her medications for one month at that time] - Continue metformin 1000mg BID, glipizide 10mg daily, and invokana 300mg - Obtain repeat HGB A1C later this month 2. Cervical cancer screening - ICD9: V76.2, ICD10: Z12.4 - Consulted OBGYN on previous visit, and had an appointment set up that the patient did not attend - CONSULT TO BENEFITS OFFICER 3. Strain of lumbar region, initial encounter [...] F43.10 - Has improved since moving to [place], she feels a lot of her trauma was tied to where she came from - Has not needed her hydroxyzine 10mg TID PRN - Continue duloxetine 60mg, bupropion 300mg 10. Fibromyalgia - ICD9: 729.1, ICD10: M79.7 - Continue gabapentin 400mg daily Yesy Fernandez DO PGY-2 SUBJECTIVE: Cindy Brody is a 37 year old year old female here today for a 2 month follow-up. HPI Ms. Brody is a 37-year-old female with a past [...] it while helping her family with a [place] tree 4 days prior, and she has [...] (BMI) of 40.0 to 44.9 in adult ([facility]) (F41.9) Anxiety (F33.9) Recurrent major depressive disorder, remission status unspecified ([facility]) (F43.10) PTSD (post-traumatic stress disorder) (M79.7) Fibromyalgia [...] 05, 2022 3:05 AM documented in this encounterThe [facility] System10-24-2022 Miscellaneous Notes* Telephone Encounter - Josy Escobedo [...] Diarrhea, Rash Sulfamethoxazole-Tr* Diarrhea, Itching, Rash (home) [phone] (cell) Last Office Visit Date: 07/18/2022 Last [facility] Visit: Visit date not found Future Appointment: 09/28/2022 The patients preferred pharmacy has been captured for this encounter? yes Request is for script(s) to be escript to pharmacy. Josy [place] documented [facility] Miscellaneous Notes* Telephone Encounter - Sabra Power [...] Diarrhea, Rash Sulfamethoxazole-Tr* Diarrhea, Itching, Rash (home) [phone] (cell) Last Office Visit Date: 07/18/2022 Last Distance Health Visit: Visit date not found Future Appointment: 09/28/2022 The patients preferred pharmacy has been captured for this encounter? yes Request is for script(s) to be escript to pharmacy. Sabra Power LPN documented in this encounterThe [facility]10-03-2022 Miscellaneous Notes* Telephone Encounter - No Oconnor LPN - 08/29/2022 11:09 AM EDT Added to [place]alt request documented in this encounterThe [facility]09-14-2022 Miscellaneous Notes* Telephone Encounter - Sabra Power [...] Diarrhea, Rash Sulfamethoxazole-Tr* Diarrhea, Itching, Rash (home) [phone] (cell) Last Office Visit Date: 07/18/2022 Last [facility] Visit: Visit date not found Future Appointment: 09/28/2022 The patients preferred pharmacy has been captured for this encounter? yes Request is for script(s) to be escript to pharmacy. Sabra Power LPN documented in this encounterThe [facility]09-09-2022 Miscellaneous Notes* Telephone Encounter - Sara Carrasco - 08/05/2022 11:18 AM EDT Pulmonary Medicine in [place] called requesting the last office visit for the patient. Faxed to [phone]. Sara Carrasco, Customer Account Manager August 05, 2022 11:19 AM documented in this encounterThe [facility]09-09-2022 Miscellaneous Notes* Telephone Encounter - Yesy Fernandez [...] DO 08/05/2022 8:27 AM documented in this [facility]09-01-2022 Miscellaneous Notes* Telephone Encounter - Anjel Cruz - 07/28/2022 8:33 AM EDT 07/18/2022: Patient is scheduled with Dr. Gan 01/10/2023. Confirmation #[id number] documented in this encounterThe [facility] System08-31-2022 Miscellaneous Notes* Telephone Encounter - Anjel Cruz - 07/27/2022 9:25 AM EDT 07/26/2022: Patient is scheduled with Dr. Indy Jung on 09/12/2022. Confirmation #[id number] documented in this encounterThe [facility]08-22-2022 History of Present illness Narrative* Yesy Fernandez DO - 07/18/2022 10:40 AM EDT Images from the original note were not included. [facility] Yesy Fernandez DO ASSESSMENT/PLAN: 1. Class 3 severe obesity due [...] exam in one year. - CONSULT TO BENEFITS OFFICER - She thinks her last visit to the [employer] [facility] was in 2018 3. Hyperlipidemia, unspecified hyperlipidemia [...] F43.10 - As the patient works in [employer], she endorses it being difficult for her [...] TABLET Yesy Fernandez DO PGY-2 SUBJECTIVE: Cindy Brody is a 37 year old year old female here today for establishment of care. HPI Ms. Brody is a 37-year-old female with a past medical history significant for fibromyalgia, type 2 diabetes mellitus, essential hypertension, vitamin D deficiency, hyperlipidemia, depression, PTSD, migraines, and obesity. She presents to the office today for establishment of care with a new PCP. She recently moved to [place] [12/2021] from [place]. Her major concerns today pertain to her [...] and 3 sons. They moved up to [place] from [place] [12/2021] for her 's work [[employer] - [...] 20, 2022 3:42 PM documented in this encounterThe [facility]08-09-2022 Miscellaneous Notes* Telephone Encounter - Dominique Oropeza [...] 2:21 PM * Telephone Encounter - Dominique Oropeza - 07/05/2022 11:01 AM EDT Callx1 regarding appointment tomorrow with Eleonora Shank at 1015 for Amenorrhea. Unable to reach patient, no message left. Appointment needs R/S Eleonora is not in office. My chart message sent. Dominique Oropeza July 05, 2022 11:04 AM documented in this encounterThe Metrohealth SystemDischarge summary Author Louie Basurto [facility] September 22, 2023 8:35am Note Date/Time September 22, 2023 8 :29am [facility] Medical Records Department [address] [place] [address] Emergency Department Summary 09/22/23 MR#: [id number] Acct: [id number] Name: CINDY BRODY Rep #:[id number] : 1985 38 From: Louie Basurto MD PCP: YESY FERNANDEZ Status:REG ER Location: ED HPI History of Present Illness Chief Complaint: Hypertension Detail of Chief Complaint: High blood pressure readings and panic attack Informant: patient Onset/Context/Timing Onset: Today and Hours Context: Sudden Onset Timing: Intermittent Quality: Systolic pressure between 165 and 175 and chest discomfort with shortness o Location: Mid chest Current Severity: Gone Maximum Severity: Severe Worsened by: Chest pain started after she saw her blood pressure reading. She believes Relieved by: Resolved on its own Associated Symptoms Associated Symptoms: No radiation of the chest discomfort. 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 She does report greater [id number] pound weight loss. She states this morning she did not feel right. She took her blood pressure. First reading was 172 systolic over 95. Second reading was 169 systolic. She began to experience chest discomfort and shortness of breath. He did report lightheadedness. She denies history of coronary disease. She does have a history of hypertension. She is present on metoprolol. Many of her meds were discontinued because of her significant weight loss. She denies headache. Visual, ocular auditory symptoms. Denies ringing ears or decreased hearing. Denies trouble with speech or swallowing. She denies paresthesia, anesthesia or motor weakness upper or lower extremities. She denied problems with balance. Patient denies intolerance to greasy or fried foods. Patient denied abdominal pain or back pain. Patient denied urologic symptoms. Prior similar symptoms: Yes (Panic attack) Recent Illness/Hospitalization: No PFSH PFS Medical History Fibromyalgia Hypertension Major depressive disorder, recurrent, moderate Migraine without aura, not intractable, without status migrainosus Mixed hyperlipidemia Other group home (current) drug therapy Physical exam, pre-employment Type 2 diabetes mellitus with hyperglycemia Vitamin D deficiency, unspecified Home Medications duloxetine 60 mg capsule,delayed release (Cymbalta) 60 mg PO DAILY 07/04/22 [History Last Taken Unknown] metformin 1,000 mg tablet 1,000 mg PO DAILY 07/04/22 [History Last Taken Unknown] metoprolol succinate 100 mg capsule sprinkle, ext. release 24 hr 100 mg PO DAILY07/04/22 [History Last Taken Unknown] tirzepatide 12.5 mg/0.5 mL subcutaneous pen injector (Mounjaro) 12.5 mg subcut QWEEK 09/22/23 [History Last Taken Unknown] topiramate 25 mg tablet 50 mg PO DAILY 09/22/23 [History Last Taken Unknown] Allergy/AdvReac Type Severity Reaction Status Date / Time acetaminophen [From Percocet] Allergy Hives Verified 09/22/23 06:57 Dihydroaminopryidine Allergy Rash Verified 09/22/23 06:57 Antibiotics hydrocodone Allergy Hives Verified 09/22/23 06:57 oxycodone [From Percocet] Allergy Hives Verified 09/22/23 06:57 Sulfa (Sulfonamide Allergy Hives Verified 09/22/23 06:57 Antibiotics) sulfamethoxazole Allergy Hives Verified 09/22/23 06:57 [From Bactrim] trimethoprim [From Bactrim] Allergy Hives Verified 09/22/23 06:57 bupropion [From Wellbutrin] AdvReac Intermediate Other Verified 09/22/23 06:57 Social History (Updated 09/22/23 @ 08:[address] Louie Basurto MD) household members: spouse and none Smoking Status: Never smoker substance use type: does not use ROS ROS ED Constitutional Constitutional ED: Reports weight loss; Denies chills, fever(s), subjective or sweats Eyes Eyes: Denies blurry vision, change in vision or diplopia ENT ENT ED: Denies ear pain, rhinorrhea or sore throat Cardiovascular Cardiovascular: Reports chest pain; Denies orthopnea, palpitations, paroxysmal nocturnal dyspnea or racing heartbeat Respiratory/Chest Respiratory/Chest: Reports dyspnea; Denies cough, dyspnea on exertion, orthopneaor paroxysmal nocturnal dyspnea Gastrointestinal Gastrointestinal: Denies abdominal pain, nausea or vomiting Genitourinary Genitourinary ED: Denies dysuria, hematuria or urinary frequency Musculoskeletal Musculoskeletal: Denies arthralgias, back pain, myalgias or neck pain Integumentary Denies rash Neurologic Neurologic: Denies headache(s), paresthesias or weakness Endocrine Endocrinology: Denies cold intolerance or heat intolerance Hematologic/Lymphatic Hematologic/Lymphatic: Reports systems reviewed and no addt'l complaints, exceptas documented EXAM Physical Exam Const Vital Signs: 09/22/23 06:53 09/22/23 06:58 09/22/23 08:07 Temperature 97.9 F Temperature Source Temporal Pulse Rate 82 68 Respiratory Rate 16 18 Respiratory Effort Normal Respiratory Pattern Normal Blood Pressure 115/87 H 109/80 Blood Pressure Mean 96 89 Pulse Ox 98 Oxygen Delivery Method Room Air Positive well nourished and well developed General Appearance ED: well developed and NAD; Negative for pallor HEENT Reports moist mucous membranes HEENT Narrative: Head is atraumatic and normocephalic. Ears normal. Nares patent. Posterior pharynx is normal. Eyes PERRL and EOMs intact bilaterally Eyes Narrative: There is no nystagmus. General Eye ED: Negative for pale conjunctiva or scleral icterus Neck no lymphadenopathy, supple and no JVD Chest Wall inspection of chest normal and palpation of chest normal Resp normal respiratory effort and clear to auscultation bilaterally Cardio regular rate, regular rhythm, S1 normal heart sound, S2 normal heart sound and no murmurs GI normal to inspection, nondistended, normoactive bowel sounds, non-tender, non-distended and no masses; Negative for hepatosplenomegaly Auscultation: normoactive bowel sounds Palpation: soft Extremity normal to inspection General Extremety ED: Negative for edema or tenderness General Extremity: Negative for edema Neuro oriented x3, CN's II-XII intact bilaterally and no sensory deficits noted Sensorium / Orientation: alert Motor Exam: strength 5/5 throughout Psych Negative for mental status grossly normal Mood & Affect: anxious Skin no rashes or lesions noted, no wounds and skin turgor normal General Skin Exam: Negative for jaundice or pallor MDM MDM MDM Narrative Medical decision making narrative: Patient had elevated blood pressure reading at home. Her blood pressure in the emergency department have been normal. Patient's exam is normal. At approximately 0810 was informed by nurse that she would like a work excuse. Plan was to observe. Since patient remains asymptomatic and blood pressure is normal we will discharge to home. Patient was reassessed at 0830. Patient be discharged home. She has for a notebecause she was late for work. This was granted. Discharge Plan Triage Chief Complaint: Hypertension ED Provider: Louie Basurto Dx/Rx/DC Orders Clinical Impression: Panic attack, Elevated blood pressure reading with diagnosis of hypertension Instructions: ED Anxiety Reaction, ED Hypertension, Established Prescriptions: No Action metformin 1,000 mg Tablet 1,000 mg PO DAILY duloxetine [Cymbalta] 60 mg Capsule,Delayed Release(Dr/Ec) 60 mg PO DAILY metoprolol succinate 100 mg Capsule,Sprinkle,Er 24hr 100 mg PO DAILY topiramate 25 mg tablet 50 mg PO DAILY Mounjaro 12.5 mg/0.5 mL pen injector 12.5 mg SUBCUT QWEEK Patient Comments: inject 1 dose subcutaneously ONCE A WEEK, mondays Stand Alone Forms: ED Work / School Excuse Primary Care Provider: YESY FERNANDEZ Referrals: YESY FERNANDEZ [Other] - 1-2 Weeks Disposition Disposition: Home, Self Care What to do if you have Problems For any increased pain, shortness of breath, bleeding, nausea or vomiting, chest pain, or any unexpected problems, contact your Primary Care Provider. Call [facility] ([phone]) or report to the closest Emergency Room. Call 911 if necessary. 09/22/23 0835 <Electronically signed by Louie Basurto MD> Cosigner Signature (if applicable): CC: YESY FERNANDEZ ~ Signed [facility] Work Phone: Evaluation noteNo assessment information available [facility] Work Phone: Evaluation note* Diagnosis Class 3 severe obesity due to excess calories without serious comorbidity with body mass index (BMI) of 40.0 to 44.9 in adult (HCC)- Primary Cervical cancer screening Screening for malignant neoplasm of the cervix Hyperlipidemia, unspecified hyperlipidemia type Chronic fatigue Other malaise and fatigue Anxiety Anxiety state, unspecified Type 2 diabetes mellitus without complication, without long-term current use of insulin (HCC) Fibromyalgia Mylagia and myositis, unspecified Primary hypertension Unspecified essential hypertension Chronic migraine without aura without status migrainosus, not intractable Chronic migraine without aura, without mention of intractable migraine without mention of status migrainosus Recurrent major depressive disorder, remission status unspecified (HCC) PTSD (post-traumatic stress disorder) Posttraumatic stress disorder [facility]* Diagnosis Vitamin D deficiency- Primary Unspecified vitamin D deficiency [facility]* Diagnosis Anxiety Anxiety state, unspecified documented in this encounter [facility] note* Diagnosis Type 2 diabetes mellitus without complication, without long-term current use of insulin ([facility]) documented in this encounter [facility] note* Diagnosis Anxiety Anxiety state, unspecified Vitamin D deficiency Unspecified vitamin D deficiency Fibromyalgia Mylagia and myositis, unspecified documented [facility] this encounter [facility]* Diagnosis Primary hypertension Unspecified essential hypertension [facility] Diagnosis Fibromyalgia Mylagia and myositis, unspecified [facility]* Diagnosis Type 2 diabetes mellitus without complication, without long-term current use of insulin (HCC)- Primary Cervical cancer screening Screening for malignant neoplasm of the cervix Strain of lumbar region, initial encounter Primary hypertension Unspecified essential hypertension KOURTNEY (obstructive sleep apnea) Obstructive sleep apnea (adult) (pediatric) Class 3 severe obesity due to excess calories without serious comorbidity with body mass index (BMI) of 40.0 to 44.9 in adult ([facility]) Anxiety Anxiety state, unspecified Recurrent major depressive disorder, remission status unspecified ([facility]) PTSD (post-traumatic stress disorder) Posttraumatic stress disorder Fibromyalgia Mylagia and myositis, unspecified [facility]* Diagnosis Anxiety Anxiety state, unspecified [facility]* Diagnosis Strain of lumbar region, initial encounter documented [facility] this encounter [facility]* Diagnosis Primary hypertension Unspecified essential hypertension [facility]* Diagnosis Type 2 diabetes mellitus without complication, without long-term current use of insulin ([facility]) Primary hypertension Unspecified essential hypertension [facility]* Diagnosis Anxiety Anxiety state, unspecified [facility]* Diagnosis Strain of lumbar region, initial encounter [facility]* Diagnosis Primary hypertension Unspecified essential hypertension [facility]* Diagnosis Fibromyalgia Mylagia and myositis, unspecified Type 2 diabetes mellitus without complication, without long-term current use of insulin ([facility]) [facility]* Diagnosis Strain of lumbar region, initial encounter [facility]* Diagnosis Vitamin D deficiency Unspecified vitamin D deficiency Fibromyalgia Mylagia and myositis, unspecified Strain of lumbar region, initial encounter Type 2 diabetes mellitus without complication, without long-term current use of insulin ([facility]) Primary hypertension Unspecified essential hypertension Anxiety Anxiety state, unspecified [facility]* Diagnosis Anxiety Anxiety state, unspecified Strain of lumbar region, initial encounter Vitamin D deficiency Unspecified vitamin D deficiency Fibromyalgia Mylagia and myositis, unspecified [facility] Diagnosis Type 2 diabetes mellitus without complication, without long-term current use of insulin (HCC) documented [facility] this encounter [facility]* Diagnosis Class 3 severe obesity with serious comorbidity in adult, unspecified BMI, unspecified obesity type (HCC)- Primary Body mass index 40.0-44.9, adult (HCC) Body Mass Index 40.0-44.9, adult Dietary counseling and surveillance Dietary surveillance and counseling Vitamin D deficiency Unspecified vitamin D deficiency Primary hypertension Unspecified essential hypertension Uncontrolled type 2 diabetes mellitus with hyperglycemia (HCC) documented [facility] this [facility]* Diagnosis Strain of lumbar region, initial encounter Fibromyalgia Mylagia and myositis, unspecified Type 2 diabetes mellitus without complication, without long-term current use of insulin (HCC) [facility]* Diagnosis Vitamin D deficiency Unspecified vitamin D deficiency Primary hypertension Unspecified essential hypertension Type 2 diabetes mellitus without complication, without long-term current use of insulin (HCC) Anxiety Anxiety state, unspecified Fibromyalgia Mylagia and myositis, unspecified documented [facility]* Diagnosis Class 3 severe obesity with serious comorbidity in adult, unspecified BMI, unspecified obesity type (HCC) Body mass index 40.0-44.9, adult (HCC) Body Mass Index 40.0-44.9, adult Uncontrolled type 2 diabetes mellitus with hyperglycemia (HCC) [facility]* Diagnosis Class 3 severe obesity with serious comorbidity in adult, unspecified BMI, unspecified obesity type (HCC) Body mass index 40.0-44.9, adult (HCC) Body Mass Index 40.0-44.9, adult Uncontrolled type 2 diabetes mellitus with hyperglycemia (HCC) documented [facility] this encounter [facility]* Diagnosis Anxiety Anxiety state, unspecified documented [facility]* Diagnosis Anxiety Anxiety state, unspecified Strain of lumbar region, initial encounter Type 2 diabetes mellitus without complication, without long-term current use of insulin (HCC) documented [facility] encounter [facility]* Diagnosis Anxiety Anxiety state, unspecified Strain of lumbar region, initial encounter Fibromyalgia Mylagia and myositis, unspecified documented in this encounter [facility] note* Diagnosis Class 3 severe obesity with serious comorbidity in adult, unspecified BMI, unspecified obesity type (HCC)- Primary Dietary counseling and surveillance Dietary surveillance and counseling Uncontrolled type 2 diabetes mellitus with hyperglycemia (HCC) Body mass index 40.0-44.9, adult (HCC) Body Mass Index 40.0-44.9, adult Vitamin D deficiency Unspecified vitamin D deficiency Primary hypertension Unspecified essential hypertension documented in this encounter [facility] note* Diagnosis Vitamin D deficiency Unspecified vitamin D deficiency Type 2 diabetes mellitus without complication, without long-term current use of insulin (HCC) Primary hypertension Unspecified essential hypertension Anxiety Anxiety state, unspecified documented in this encounter [facility] note* Diagnosis Uncontrolled type 2 diabetes mellitus with hyperglycemia (HCC)- Primary documented in this encounter [facility] note* Diagnosis Class 3 severe obesity with serious comorbidity in adult, unspecified BMI, unspecified obesity type (HCC)- Primary Uncontrolled type 2 diabetes mellitus with hyperglycemia (HCC) Body mass index 40.0-44.9, adult (HCC) Body Mass Index 40.0-44.9, adult Vitamin D deficiency Unspecified vitamin D deficiency Primary hypertension Unspecified essential hypertension Dietary counseling and surveillance Dietary surveillance and counseling documented in this encounter [facility] note* Diagnosis Anxiety- Primary Anxiety state, unspecified Vitamin D deficiency Unspecified vitamin D deficiency Recurrent major depressive disorder, remission status unspecified (HCC) PTSD (post-traumatic stress disorder) Posttraumatic stress disorder Obesity, Class II, BMI 35-39.9 Obesity, unspecified documented in this encounter [facility] note* Diagnosis Class 3 severe obesity with serious comorbidity in adult, unspecified BMI, unspecified obesity type (HCC) Uncontrolled type 2 diabetes mellitus with hyperglycemia (HCC) Body mass index 40.0-44.9, adult (HCC) Body Mass Index 40.0-44.9, adult documented in this encounter [facility] note* Diagnosis Anxiety Anxiety state, unspecified Type 2 diabetes mellitus without complication, without long-term current use of insulin (HCC) Primary hypertension Unspecified essential hypertension documented in this encounter [facility] note* Diagnosis NO SHOW- Primary documented in this encounter [facility] note* Diagnosis Upper respiratory tract infection, unspecified type- Primary documented in this encounter [facility] note* Diagnosis Class 3 severe obesity with serious comorbidity in adult, unspecified BMI, unspecified obesity type (HCC) Uncontrolled type 2 diabetes mellitus with hyperglycemia (HCC) Body mass index 40.0-44.9, adult (HCC) Body Mass Index 40.0-44.9, adult documented in this encounter [facility] note* Diagnosis Class 3 severe obesity [...] of insulin (HCC) documented in this encounter [facility] note* Diagnosis Anxiety Anxiety state, unspecified Primary hypertension Unspecified essential hypertension documented in this encounter [facility] note* Diagnosis Acute viral syndrome- Primary documented in this encounter [facility] note* Diagnosis Class 3 severe obesity with [...] Unspecified essential hypertension documented in this encounter [facility] note* Diagnosis Concussion with loss of consciousness, subsequent encounter- Primary documented in this encounter [facility] note* Diagnosis Traumatic brain injury, with unknown loss of consciousness status, subsequent encounter- Primary documented in this encounter [facility] note* Diagnosis Neck pain, acute- Primary Cervicalgia Acute midline thoracic back pain Pain of right hip Dysuria Primary hypertension Unspecified essential hypertension documented in this encounter [facility] note* Diagnosis Primary hypertension Unspecified essential hypertension documented in this encounter [facility] note* Diagnosis Primary hypertension Unspecified essential hypertension documented in this encounter [facility] note* Diagnosis URI, acute- Primary Acute upper respiratory infections of unspecified site documented in this encounter [facility] note* Diagnosis Back pain, unspecified back location, unspecified back pain laterality, unspecified chronicity- Primary documented in this encounter [facility] note* Diagnosis Body mass index 40.0-44.9, adult (HCC) Body Mass Index 40.0-44.9, adult Type 2 diabetes mellitus without complication, without long-term current use of insulin ([facility]) Class 3 severe obesity with serious comorbidity in adult, unspecified BMI, unspecified obesity type (HCC) documented in this encounter [facility] note* Diagnosis Anxiety Anxiety state, unspecified [facility]* Diagnosis Concussion with loss of consciousness, with loc of unspecified duration, initial encounter- Primary Traumatic brain injury, with unknown loss of consciousness status, subsequent encounter Intractable acute post-traumatic headache Acute post-traumatic headache documented in this encounter [facility] note* Diagnosis Type 2 diabetes mellitus without complication, without long-term current use of insulin ([facility]) documented in this encounter [facility] note* Diagnosis Primary hypertension Unspecified essential hypertension documented in this encounter [facility] note* Diagnosis Concussion with loss of consciousness, with loc of unspecified duration, initial encounter documented in this encounter [facility] note* Diagnosis Class 3 severe obesity with serious comorbidity in adult, unspecified BMI, unspecified obesity type (HCC)- Primary Excess skin of abdomen Unspecified hypertrophic and atrophic condition of skin Recurrent infection of skin Type 2 diabetes mellitus without complication, without long-term current use of insulin ([facility]) Dietary counseling and surveillance Dietary surveillance and counseling Body mass index 40.0-44.9, adult (HCC) Body Mass Index 40.0-44.9, adult Primary hypertension Unspecified essential hypertension [facility]* Diagnosis Headache, unspecified headache type- Primary Blurred vision, bilateral Other specified visual disturbances documented in this encounter [facility] note* Diagnosis Intertrigo- Primary Other specified erythematous condition Rash Rash and other nonspecific skin eruption Loose skin Excess skin of abdominal wall Unspecified hypertrophic and atrophic condition of skin [facility]* Diagnosis Primary hypertension Unspecified essential hypertension [facility]* Diagnosis Type 2 diabetes mellitus without complication, without long-term current use of insulin ([facility]) [facility] Diagnosis Type 2 diabetes mellitus without complication, without long-term current use of insulin (HCC) [facility] Diagnosis Excess skin- Primary documented in this encounter [facility] note* Diagnosis Excess skin of abdominal wall- Primary Unspecified hypertrophic and atrophic condition of skin Excess skin [facility]* Diagnosis Primary hypertension Unspecified essential hypertension Excess skin documented in this encounter [facility] note* Diagnosis Type 2 diabetes mellitus without complication, without long-term current use of insulin (HCC) Preoperative examination- Primary Preoperative examination, unspecified Obesity, Class II, BMI 35-39.9 Obesity, unspecified Controlled type 2 diabetes mellitus without complication, without long-term current use of insulin (HCC) Primary hypertension Unspecified essential hypertension Excess skin [facility]* Diagnosis Preoperative examination- Primary Preoperative examination, unspecified Obesity, Class II, BMI 35-39.9 Obesity, unspecified Controlled type 2 diabetes mellitus without complication, without long-term current use of insulin (HCC) Primary hypertension Unspecified essential hypertension Excess skin * Assessment & Plan Note - Shawna Reilly APRN.CNP - 07/16/2024 9:31 AM EDT Associated Problem(s): Obesity, Class II, BMI 35-39.9 BMI 34 * Assessment & Plan Note - Shawna Reilly APRN.CNP - 07/16/2024 9:31 AM EDT Associated Problem(s): Controlled type 2 diabetes mellitus without complication, without long-term current use of insulin (HCC) Managed by PCP and Controlled with Mounjaro and Metformin. Instructions provided by JO-ANN per PAT guidelines. * Assessment & Plan Note - Shawna Reilly APRN.CNP - 07/16/2024 7:20 AM EDT Associated Problem(s): Preoperative examination Patient has the following medical conditions which may affect dianne-operative course addressed in assessment and plan today * Assessment & Plan Note - Shawna Reilly APRN.CNP - 07/15/2024 3:45 PM EDT Associated Problem(s): Primary hypertension Managed by PCP and Controlled with meds. [facility] Diagnosis Preoperative examination- Primary Preoperative examination, unspecified Obesity, Class II, BMI 35-39.9 Obesity, unspecified Controlled type 2 diabetes mellitus without complication, without long-term current use of insulin (HCC) Primary hypertension Unspecified essential hypertension Type 2 diabetes mellitus without complication, without long-term current use of insulin (HCC)- Primary Excess skin [facility]* Diagnosis Preoperative examination- Primary Preoperative examination, unspecified Obesity, Class II, BMI 35-39.9 Obesity, unspecified Controlled type 2 diabetes mellitus without complication, without long-term current use of insulin (HCC) Primary hypertension Unspecified essential hypertension Post-operative state- Primary Other postprocedural status [facility] Preoperative examination- Primary Preoperative examination, unspecified Obesity, Class II, BMI 35-39.9 Obesity, unspecified Controlled type 2 diabetes mellitus without complication, without long-term current use of insulin (HCC) Primary hypertension Unspecified essential hypertension Class 1 obesity- Primary Type 2 diabetes mellitus without complication, without long-term current use of insulin (HCC) Body mass index 30.0-30.9, adult Body Mass Index 30.0-30.9, adult Dietary counseling and surveillance Dietary surveillance and counseling Primary hypertension Unspecified essential hypertension [facility]* Diagnosis Excess skin of abdominal wall- Primary Unspecified hypertrophic and atrophic condition of skin Preoperative examination- Primary Preoperative examination, unspecified Obesity, Class II, BMI 35-39.9 Obesity, unspecified Controlled type 2 diabetes mellitus without complication, without long-term current use of insulin (HCC) Primary hypertension Unspecified essential hypertension [facility]* Diagnosis Preoperative examination- Primary Preoperative examination, unspecified Obesity, Class II, BMI 35-39.9 Obesity, unspecified Controlled type 2 diabetes mellitus without complication, without long-term current use of insulin (HCC) Primary hypertension Unspecified essential hypertension Post-operative state- Primary Other postprocedural status documented in this encounter [facility] note* Diagnosis Preoperative examination- Primary Preoperative examination, unspecified Obesity, Class II, BMI 35-39.9 Obesity, unspecified Controlled type 2 diabetes mellitus without complication, without long-term current use of insulin (HCC) Primary hypertension Unspecified essential hypertension Primary hypertension Unspecified essential hypertension documented in this encounter [facility] note* Diagnosis Preoperative examination- Primary Preoperative examination, unspecified Obesity, Class II, BMI 35-39.9 Obesity, unspecified Controlled type 2 diabetes mellitus without complication, without long-term current use of insulin (HCC) Primary hypertension Unspecified essential hypertension Rash- Primary Rash and other nonspecific skin eruption Itching Unspecified pruritic disorder documented in this encounter [facility] note* Diagnosis Preoperative examination- Primary Preoperative examination, unspecified Obesity, Class II, BMI 35-39.9 Obesity, unspecified Controlled type 2 diabetes mellitus without complication, without long-term current use of insulin (HCC) Primary hypertension Unspecified essential hypertension Traumatic brain injury, with unknown loss of consciousness status, subsequent encounter- Primary documented in this encounter [facility] note* Diagnosis Preoperative examination- Primary Preoperative examination, unspecified Obesity, Class II, BMI 35-39.9 Obesity, unspecified Controlled type 2 diabetes mellitus without complication, without long-term current use of insulin (HCC) Primary hypertension Unspecified essential hypertension Type 2 diabetes mellitus without complication, without long-term current use of insulin (HCC) documented in this encounter [facility] note* Diagnosis Preoperative examination- Primary Preoperative examination, unspecified Obesity, Class II, BMI 35-39.9 Obesity, unspecified Controlled type 2 diabetes mellitus without complication, without long-term current use of insulin (HCC) Primary hypertension Unspecified essential hypertension Type 2 diabetes mellitus with other specified complication, with long-term current use of insulin (HCC)- Primary Dietary counseling and surveillance Dietary surveillance and counseling BMI 34.0-34.9,adult Body Mass Index 34.0-34.9, adult documented in this encounter [facility] note* Diagnosis Preoperative examination- Primary Preoperative examination, unspecified Obesity, Class II, BMI 35-39.9 Obesity, unspecified Controlled type 2 diabetes mellitus without complication, without long-term current use of insulin (HCC) Primary hypertension Unspecified essential hypertension Primary hypertension Unspecified essential hypertension documented in this encounter [facility] note* Diagnosis Preoperative examination- Primary Preoperative examination, unspecified Obesity, Class II, BMI 35-39.9 Obesity, unspecified Controlled type 2 diabetes mellitus without complication, without long-term current use of insulin (HCC) Primary hypertension Unspecified essential hypertension Type 2 diabetes mellitus without complication, without long-term current use of insulin (HCC) documented in this encounter [facility] note* Diagnosis Preoperative examination- Primary Preoperative examination, unspecified Obesity, Class II, BMI 35-39.9 Obesity, unspecified Controlled type 2 diabetes mellitus without complication, without long-term current use of insulin (HCC) Primary hypertension Unspecified essential hypertension Type 2 diabetes mellitus with other specified complication, with long-term current use of insulin (HCC)- Primary documented in this encounter [facility] note* Diagnosis Preoperative examination- Primary Preoperative examination, unspecified Obesity, Class II, BMI 35-39.9 Obesity, unspecified Controlled type 2 diabetes mellitus without complication, without long-term current use of insulin (HCC) Primary hypertension Unspecified essential hypertension Post-operative state- Primary Other postprocedural status documented in this encounter [facility] note* Diagnosis Preoperative examination- Primary Preoperative examination, unspecified Obesity, Class II, BMI 35-39.9 Obesity, unspecified Controlled type 2 diabetes mellitus without complication, without long-term current use of insulin (HCC) Primary hypertension Unspecified essential hypertension Primary hypertension Unspecified essential hypertension documented in this encounter [facility] note* Diagnosis Preoperative examination- Primary Preoperative examination, unspecified Obesity, Class II, BMI 35-39.9 Obesity, unspecified Controlled type 2 diabetes mellitus without complication, without long-term current use of insulin (HCC) Primary hypertension Unspecified essential hypertension Post-operative state- Primary Other postprocedural status documented in this encounter [facility] note* Diagnosis Preoperative examination- Primary Preoperative examination, unspecified Obesity, Class II, BMI 35-39.9 Obesity, unspecified Controlled type 2 diabetes mellitus without complication, without long-term current use of insulin (HCC) Primary hypertension Unspecified essential hypertension Type 2 diabetes mellitus with other specified complication, with long-term current use of insulin (HCC)- Primary Type 2 diabetes mellitus without complication, without long-term current use of insulin (HCC) BMI 34.0-34.9,adult Body Mass Index 34.0-34.9, adult Dietary counseling and surveillance Dietary surveillance and counseling Class 1 obesity Primary hypertension Unspecified essential hypertension documented in this encounter [facility] note* Diagnosis Preoperative examination- Primary Preoperative examination, unspecified Obesity, Class II, BMI 35-39.9 Obesity, unspecified Controlled type 2 diabetes mellitus without complication, without long-term current use of insulin (HCC) Primary hypertension Unspecified essential hypertension Post-operative state- Primary Other postprocedural status Excess skin documented in this encounter [facility] note* Diagnosis Preoperative examination- Primary Preoperative examination, unspecified Obesity, Class II, BMI 35-39.9 Obesity, unspecified Controlled type 2 diabetes mellitus without complication, without long-term current use of insulin (HCC) Primary hypertension Unspecified essential hypertension Type 2 diabetes mellitus with other specified complication, with long-term current use of insulin (HCC) documented in this encounter [facility] note* Diagnosis Preoperative examination- Primary Preoperative examination, unspecified Obesity, Class II, BMI 35-39.9 Obesity, unspecified Controlled type 2 diabetes mellitus without complication, without long-term current use of insulin (HCC) Primary hypertension Unspecified essential hypertension Primary hypertension Unspecified essential hypertension documented in this encounter [facility] note* Diagnosis Preoperative examination- Primary Preoperative examination, unspecified Obesity, Class II, BMI 35-39.9 Obesity, unspecified Controlled type 2 diabetes mellitus without complication, without long-term current use of insulin (HCC) Primary hypertension Unspecified essential hypertension Type 2 diabetes mellitus without complication, without long-term current use of insulin (HCC) documented in this encounter [facility] note* Diagnosis Preoperative examination- Primary Preoperative examination, unspecified Obesity, Class II, BMI 35-39.9 Obesity, unspecified Controlled type 2 diabetes mellitus without complication, without long-term current use of insulin (HCC) Primary hypertension Unspecified essential hypertension Hypertrophy of fat- Primary Class 1 obesity without serious comorbidity with body mass index (BMI) of 31.0 to 31.9 in adult, unspecified obesity type Traumatic brain injury, with unknown loss of consciousness status, subsequent encounter Hirsutism Obesity, Class I, BMI 30-34.9 Obesity, unspecified Post-operative state Other postprocedural status Excess skin documented in this encounter [facility] note* Diagnosis Preoperative examination- Primary Preoperative examination, unspecified Obesity, Class II, BMI 35-39.9 Obesity, unspecified Controlled type 2 diabetes mellitus without complication, without long-term current use of insulin (HCC) Primary hypertension Unspecified essential hypertension Type 2 diabetes mellitus with other specified complication, with long-term current use of insulin (HCC) Post-operative state Other postprocedural status Excess skin documented in this encounter [facility] note* Diagnosis Preoperative examination- Primary Preoperative examination, unspecified Obesity, Class II, BMI 35-39.9 Obesity, unspecified Controlled type 2 diabetes mellitus without complication, without long-term current use of insulin (HCC) Primary hypertension Unspecified essential hypertension Type 2 diabetes mellitus with other specified complication, with long-term current use of insulin (HCC) Post-operative state Other postprocedural status Excess skin documented in this encounter [facility] note* Diagnosis Preoperative examination- Primary Preoperative examination, unspecified Obesity, Class II, BMI 35-39.9 Obesity, unspecified Controlled type 2 diabetes mellitus without complication, without long-term current use of insulin (HCC) Primary hypertension Unspecified essential hypertension Type 2 diabetes mellitus with other specified complication, with long-term current use of insulin (HCC) Post-operative state Other postprocedural status documented in this encounter [facility] note* Diagnosis Preoperative examination- Primary Preoperative examination, unspecified Obesity, Class II, BMI 35-39.9 Obesity, unspecified Controlled type 2 diabetes mellitus without complication, without long-term current use of insulin (HCC) Primary hypertension Unspecified essential hypertension Primary hypertension Unspecified essential hypertension Post-operative state Other postprocedural status documented in this encounter [facility] note* Diagnosis Preoperative examination- Primary Preoperative examination, unspecified Obesity, Class II, BMI 35-39.9 Obesity, unspecified Controlled type 2 diabetes mellitus without complication, without long-term current use of insulin (HCC) Primary hypertension Unspecified essential hypertension Primary hypertension- Primary Unspecified essential hypertension Controlled type 2 diabetes mellitus without complication, without long-term current use of insulin (HCC) Screening for diabetic retinopathy Screening for other eye conditions Screening for depression Encounter for screening examination for other mental health and behavioral disorders Screening for cervical cancer Screening for malignant neoplasm of the cervix Traumatic brain injury, with unknown loss of consciousness status, subsequent encounter Leg swelling Swelling of limb Post-operative state Other postprocedural status documented in this encounter [facility] note* Diagnosis Preoperative examination- Primary Preoperative examination, unspecified Obesity, Class II, BMI 35-39.9 Obesity, unspecified Controlled type 2 diabetes mellitus without complication, without long-term current use of insulin (HCC) Primary hypertension Unspecified essential hypertension Excess skin of abdominal wall- Primary Unspecified hypertrophic and atrophic condition of skin Post-operative state Other postprocedural status documented in this encounter [facility] note* Diagnosis Preoperative examination- Primary Preoperative examination, unspecified Obesity, Class II, BMI 35-39.9 Obesity, unspecified Controlled type 2 diabetes mellitus without complication, without long-term current use of insulin (HCC) Primary hypertension Unspecified essential hypertension Traumatic brain injury, with unknown loss of consciousness status, subsequent encounter- Primary Post-concussion headache Post-traumatic headache, unspecified Memory dysfunction following head trauma Memory loss Post-operative state Other postprocedural status documented in this encounter [facility] note* Diagnosis Preoperative examination- Primary Preoperative examination, unspecified Obesity, Class II, BMI 35-39.9 Obesity, unspecified Controlled type 2 diabetes mellitus without complication, without long-term current use of insulin (HCC) Primary hypertension Unspecified essential hypertension Macromastia- Primary Hypertrophy of breast Preoperative examination Preoperative examination, unspecified Primary hypertension Unspecified essential hypertension Controlled type 2 diabetes mellitus without complication, without long-term current use of insulin (HCC) Type 2 diabetes mellitus without complication, without long-term current use of insulin (HCC)- Primary documented in this encounter [facility] note* Diagnosis Preoperative examination- Primary Preoperative examination, unspecified Obesity, Class II, BMI 35-39.9 Obesity, unspecified Controlled type 2 diabetes mellitus without complication, without long-term current use of insulin (HCC) Primary hypertension Unspecified essential hypertension Macromastia- Primary Hypertrophy of breast Preoperative examination Preoperative examination, unspecified Primary hypertension Unspecified essential hypertension Controlled type 2 diabetes mellitus without complication, without long-term current use of insulin (HCC) Post-operative state- Primary Other postprocedural status documented in this encounter [facility] note* Diagnosis Preoperative examination- Primary Preoperative examination, unspecified Obesity, Class II, BMI 35-39.9 Obesity, unspecified Controlled type 2 diabetes mellitus without complication, without long-term current use of insulin (HCC) Primary hypertension Unspecified essential hypertension Macromastia- Primary Hypertrophy of breast Preoperative examination Preoperative examination, unspecified Primary hypertension Unspecified essential hypertension Controlled type 2 diabetes mellitus without complication, without long-term current use of insulin (HCC) Primary hypertension Unspecified essential hypertension [facility]* Diagnosis Preoperative examination- Primary Preoperative examination, unspecified Obesity, Class II, BMI 35-39.9 Obesity, unspecified Controlled type 2 diabetes mellitus without complication, without long-term current use of insulin (HCC) Primary hypertension Unspecified essential hypertension Macromastia- Primary Hypertrophy of breast Preoperative examination Preoperative examination, unspecified Primary hypertension Unspecified essential hypertension Controlled type 2 diabetes mellitus without complication, without long-term current use of insulin (HCC) Post-operative state- Primary Other postprocedural status documented in this encounter [facility] note* Diagnosis Preoperative examination- Primary Preoperative examination, unspecified Obesity, Class II, BMI 35-39.9 Obesity, unspecified Controlled type 2 diabetes mellitus without complication, without long-term current use of insulin (HCC) Primary hypertension Unspecified essential hypertension Macromastia- Primary Hypertrophy of breast Preoperative examination Preoperative examination, unspecified Primary hypertension Unspecified essential hypertension Controlled type 2 diabetes mellitus without complication, without long-term current use of insulin (HCC) Post-operative state- Primary Other postprocedural status documented in this encounter [facility] note* Diagnosis Preoperative examination- Primary Preoperative examination, unspecified Obesity, Class II, BMI 35-39.9 Obesity, unspecified Controlled type 2 diabetes mellitus without complication, without long-term current use of insulin (HCC) Primary hypertension Unspecified essential hypertension Macromastia- Primary Hypertrophy of breast Preoperative examination Preoperative examination, unspecified Primary hypertension Unspecified essential hypertension Controlled type 2 diabetes mellitus without complication, without long-term current use of insulin (HCC) Post-operative state- Primary Other postprocedural status documented in this encounter [facility] note* Diagnosis Preoperative examination- Primary Preoperative examination, unspecified Obesity, Class II, BMI 35-39.9 Obesity, unspecified Controlled type 2 diabetes mellitus without complication, without long-term current use of insulin (HCC) Primary hypertension Unspecified essential hypertension Macromastia- Primary Hypertrophy of breast Preoperative examination Preoperative examination, unspecified Primary hypertension Unspecified essential hypertension Controlled type 2 diabetes mellitus without complication, without long-term current use of insulin (HCC) Post-operative state- Primary Other postprocedural status documented in this encounter [facility] note* Diagnosis Preoperative examination- Primary Preoperative examination, unspecified Obesity, Class II, BMI 35-39.9 Obesity, unspecified Controlled type 2 diabetes mellitus without complication, without long-term current use of insulin (HCC) Primary hypertension Unspecified essential hypertension Macromastia- Primary Hypertrophy of breast Preoperative examination Preoperative examination, unspecified Primary hypertension Unspecified essential hypertension Controlled type 2 diabetes mellitus without complication, without long-term current use of insulin (HCC) Post-operative state- Primary Other postprocedural status documented in this encounter [facility] note* Diagnosis Preoperative examination- Primary Preoperative examination, unspecified Obesity, Class II, BMI 35-39.9 Obesity, unspecified Controlled type 2 diabetes mellitus without complication, without long-term current use of insulin (HCC) Primary hypertension Unspecified essential hypertension Macromastia- Primary Hypertrophy of breast Preoperative examination Preoperative examination, unspecified Primary hypertension Unspecified essential hypertension Controlled type 2 diabetes mellitus without complication, without long-term current use of insulin (HCC) Post-operative state- Primary Other postprocedural status documented in this encounter [facility] note* Diagnosis Preoperative examination- Primary Preoperative examination, unspecified Obesity, Class II, BMI 35-39.9 Obesity, unspecified Controlled type 2 diabetes mellitus without complication, without long-term current use of insulin (HCC) Primary hypertension Unspecified essential hypertension Macromastia- Primary Hypertrophy of breast Preoperative examination Preoperative examination, unspecified Primary hypertension Unspecified essential hypertension Controlled type 2 diabetes mellitus without complication, without long-term current use of insulin (HCC) Post-operative state- Primary Other postprocedural status documented in this encounter [facility] note* Diagnosis Preoperative examination- Primary Preoperative examination, unspecified Obesity, Class II, BMI 35-39.9 Obesity, unspecified Controlled type 2 diabetes mellitus without complication, without long-term current use of insulin (HCC) Primary hypertension Unspecified essential hypertension Macromastia- Primary Hypertrophy of breast Preoperative examination Preoperative examination, unspecified Primary hypertension Unspecified essential hypertension Controlled type 2 diabetes mellitus without complication, without long-term current use of insulin (HCC) Post-operative state- Primary Other postprocedural status documented in this encounter [facility] note* Diagnosis Preoperative examination- Primary Preoperative examination, unspecified Obesity, Class II, BMI 35-39.9 Obesity, unspecified Controlled type 2 diabetes mellitus without complication, without long-term current use of insulin (HCC) Primary hypertension Unspecified essential hypertension Macromastia- Primary Hypertrophy of breast Preoperative examination Preoperative examination, unspecified Primary hypertension Unspecified essential hypertension Controlled type 2 diabetes mellitus without complication, without long-term current use of insulin (HCC) Primary hypertension Unspecified essential hypertension documented in this encounter [facility] note* Diagnosis Preoperative examination- Primary Preoperative examination, unspecified Obesity, Class II, BMI 35-39.9 Obesity, unspecified Controlled type 2 diabetes mellitus without complication, without long-term current use of insulin (HCC) Primary hypertension Unspecified essential hypertension Macromastia- Primary Hypertrophy of breast Preoperative examination Preoperative examination, unspecified Primary hypertension Unspecified essential hypertension Controlled type 2 diabetes mellitus without complication, without long-term current use of insulin (HCC) Post-operative state- Primary Other postprocedural status documented in this encounter [facility] note* Diagnosis Preoperative examination- Primary Preoperative examination, unspecified Obesity, Class II, BMI 35-39.9 Obesity, unspecified Controlled type 2 diabetes mellitus without complication, without long-term current use of insulin (HCC) Primary hypertension Unspecified essential hypertension Macromastia- Primary Hypertrophy of breast Preoperative examination Preoperative examination, unspecified Primary hypertension Unspecified essential hypertension Controlled type 2 diabetes mellitus without complication, without long-term current use of insulin (HCC) Type 2 diabetes mellitus without complication, without long-term current use of insulin (HCC) documented in this encounter [facility] note* Diagnosis Preoperative examination- Primary Preoperative examination, unspecified Obesity, Class II, BMI 35-39.9 Obesity, unspecified Controlled type 2 diabetes mellitus without complication, without long-term current use of insulin (HCC) Primary hypertension Unspecified essential hypertension Macromastia- Primary Hypertrophy of breast Preoperative examination Preoperative examination, unspecified Primary hypertension Unspecified essential hypertension Controlled type 2 diabetes mellitus without complication, without long-term current use of insulin (HCC) Type 2 diabetes mellitus without complication, without long-term current use of insulin (HCC)- Primary documented in this encounter [facility] note* Diagnosis Preoperative examination- Primary Preoperative examination, unspecified Obesity, Class II, BMI 35-39.9 Obesity, unspecified Controlled type 2 diabetes mellitus without complication, without long-term current use of insulin (HCC) Primary hypertension Unspecified essential hypertension Macromastia- Primary Hypertrophy of breast Preoperative examination Preoperative examination, unspecified Primary hypertension Unspecified essential hypertension Controlled type 2 diabetes mellitus without complication, without long-term current use of insulin (HCC) Type 2 diabetes mellitus without complication, without long-term current use of insulin (HCC)- [facility] Additional Instructions Please follow-up with your primary care doctor. Your COVID test was negative. Your strep test was positive. Please keep an eye on your blood sugars as you were given steroids which can increase your blood sugars.[facility] Work Phone: Hospital Discharge instructions Additional Instructions Chloraseptic spray or Cepastat lozenges for throat pain. Your symptoms will improve the last few talk.[facility] Work Phone: Hospital Discharge instructions* Attachments The following attachments cannot be sent through Care Everywhere. * URI (Upper Respiratory Infection): [facility]al ([place]) [facility] Attachments The following attachments cannot be sent through Care Everywhere. * Viral Infections ([place]) [facility]* Attachments The following attachments cannot be sent through Care Everywhere. * Traumatic Brain Injury: Long-term Care ([place]) [facility] Consultation (Routine) - Closed Specialty Diagnoses / Procedures Referred By Zulma cunningham Referred To Contact Neurology Diagnoses Concussion with loss of consciousness, subsequent encounter Sanjay Talbot MD [address] [place] [id number] Referral ID Status Reason Start Date Expiration Date Visits Re quested Visits Authorized [id number] Closed 01/25/2024 02/18/2025 1 1 [facility] for referral (narrative)No reason for referral information availableWCleveland [facility] Work Phone: Summary Purpose Family History No Family History Records FoundNo Family History Records FoundNo Family History Records FoundNo Family History Records FoundNo Family History Records FoundNo Family History Records FoundNo Family History Records Found Advance Directives No Advanced Directives Records Found Advance Directive Response Recorded Date/ Time Living Will No July 04, 2022 8:19am Power of [employer] No July 04 8:19am Advance Directive Response Recorded Date/ Time Living Will No March 11, 2023 1:15pm Power of [employer] No March 11 1:15pm Advance Directive Response Recorded Date/ Time Living Will No September 22 6:58am Power of [employer] No September 22, 2023 6:58am Advance Directive Response Recorded Date/ Time Living Will No January 06 10:47pm Power of [employer] No January 06, 2024 10:47pm Advance Directive Response Recorded Date/ Time Do you have a Healthcare Power of [employer]? No August 27, 2025 12:19pm Chief Complaint and Reason for Visit Chief Complaint SORE THROAT Chief Complaint hypertension Chief Complaint hypertension Fall Chief Complaint Admit Date FOREIGN BODY August 27, 2025 11 :19am Reason for Referral Specialty Diagnoses / Procedures Referred By Contac t Referred To Contact Diagnoses Cervical cancer screening Procedures CONSULT TO BENEFITS OFFICER OFFICE/OUTPATIENT [facility] HIGH MDM 60-74 MINUTES Angelo Hinton MD [address] [place] [address] Referral ID Status Reason Start Date Expiration Date Visits Requested Visits Authorized [id number] Authorized PCP Requested Referral Auto-Generate d Referral 07/18/2022 07/18/2023 1 1 Specialty Diagnoses / Procedures Referred By Contac t Referred To Contact Diagnoses Class 3 severe obesity due to excess calories without serious comorbidity with body mass index (BMI) of 40.0 to 44.9 in adult (HCC) Procedures CONSULT TO BARIATRIC SURGERY Angelo Hinton MD [address] [place] [address] Referral ID Status Reason Start Date Expiration Date V isits Requested Visits Authorized [id number] Ref Not Required 09/28/2022 11/27/2022 1 1 Referral ID Status Reason Start Date Expiration Date Visits Requested Visits Authorized [id number] Authorized PCP Requested Referral Auto-Generate d Referral 09/28/2022 09/28/2023 1 1 Specialty Diagnoses / Procedures Referred By Contac t Referred To Contact Diagnoses Class 3 severe obesity with serious comorbidity in adult, unspecified BMI, unspecified obesity type (HCC) Body mass index 40.0-44.9, adult (HCC) Uncontrolled type 2 diabetes mellitus with hyperglycemia (HCC) Fela Gan MD [address] [place] [address] Referral ID Status Reason Start Date Expiration Date Visits Re quested Visits Authorized [id number] Closed 1 1 Specialty Diagnoses / Procedures Referred By Contac t Referred To Contact Diagnoses Class 3 severe obesity with serious comorbidity in adult, unspecified BMI, unspecified obesity type (HCC) Body mass index 40.0-44.9, adult (HCC) Uncontrolled type 2 diabetes mellitus with hyperglycemia (HCC) Procedures CONSULT TO BARIATRIC SURGERY Fela Gan MD [address] [place] [address] Referral ID Status Reason Start Date Expiration Date V isits Requested Visits Authorized [id number] Ref Not Required 01/10/2023 03/11/2023 1 1 Specialty Diagnoses / Procedures Referred By Contac t Referred To Contact Diagnoses Anxiety Procedures CONSULT TO PSYCHIATRY OFFICE/OUTPATIENT [facility] 60-74 MINUTES Danny Corbett MD [address] [place] [address] Referral ID Status Reason Start Date Expiration Date Visits Requested Visits Authorized [id number] Pending Review PCP Requested Referral 07/20/2023 07/19/2024 1 1 Specialty Diagnoses / Procedures Referred By Contac t Referred To Contact Diagnoses Type 2 diabetes mellitus without complication, without long-term current use of insulin (HCC) Fela Gan MD [address] [place] [address] Referral ID Status Reason Start Date Expiration Date V isits Requested Visits Authorized [id number] Authorized 01/05/2024 01/03/2025 1 1 Specialty Diagnoses / Procedures Referred By Contac t Referred To Contact Neurology Diagnoses Traumatic brain injury, with unknown loss of consciousness status, subsequent encounter Procedures CONSULT TO NEUROLOGY OFFICE/OUTPATIENT [facility] 60 MINUTES José Elizabeth MD [address] [place] [address] Referral ID Status Reason Start Date Expiration Date Visits Requested Visits Authorized [id number] Authorized PCP Requested Referral 01/25/2024 04/24/2024 1 1 Specialty Diagnoses / Procedures Referred By Contac t Referred To Contact [facility] Diagnoses Neck pain, acute Procedures CONSULT TO PHYSICAL THERAPY PHYSICAL THERAPY EVALUATION HIGH COMPLEX 45 MINS Angelo Hinton MD [address] [place] [address] [facility] [place] [address] [place] [address] Referral ID Status Reason Start Date Expiration Date Visits Requested Visits Authorized [id number] Authorized Auto-Generat ed Referral 11/27/2023 11/26/2024 30 30 Specialty Diagnoses / Procedures Referred By Contac t Referred To Contact MR IMAGING Diagnoses Injury of thoracic spine, initial encounter ([facility]) Procedures MRI LUMBAR SPINE WO IVCON MRI SPINAL CANAL LUMBAR W/O CONTRAST MATERIAL River Sandoval DO 1 [facility] [address] [place] [address] [place] [address] Referral ID Status Reason Start Date Expiration Date Visits Requested Visits Authorized [id number] Pending Review Auto-Generat ed Referral 03/21/2024 04/20/2025 1 1 Specialty Diagnoses / Procedures Referred By Contac t Referred To Contact CT IMAGING Diagnoses Concussion with loss of consciousness, with loc of unspecified duration, initial encounter Procedures CT BRAIN WO IVCON CT HEAD/BRAIN W/O CONTRAST MATERIAL Matilde Watters PA-C [address] [place] [address] [place] [address] Referral ID Status Reason Start Date Expiration Date Visits Requested Visits Authorized [id number] Authorized Auto-Generat ed Referral 04/03/2024 05/03/2025 1 1 Specialty Diagnoses / Procedures Referred By Contac t Referred To Contact Diagnoses Concussion with loss of consciousness, with loc of unspecified duration, initial encounter Procedures CONSULT TO SPEECH THERAPY Matilde Watters PA-C [address] [place] [address] Referral ID Status Reason Start Date Expiration Date Visits Requested Visits Authorized [id number] Pending Review PCP Requested Referral 04/03/2024 07/02/2024 3 3 Referral ID Status Reason Start Date Expiration Date V isits Requested Visits Authorized [id number] Closed Auto-Generate d Referral 04/03/2024 05/03/2025 1 1 Specialty Diagnoses / Procedures Referred By Contac t Referred To Contact Plastic Surgery Diagnoses Class 3 severe obesity with serious comorbidity in adult, unspecified BMI, unspecified obesity type (HCC) Excess skin of abdomen Recurrent infection of skin Procedures CONSULT TO PLASTIC SURGERY OFFICE/OUTPATIENT [facility] 60 MINUTES Fela Gan MD [address] [address] Referral ID Status Reason Start Date Expiration Date Visits Requested Visits Authorized [id number] Authorized PCP Requested Referral 04/23/2024 07/22/2024 1 1 Referral ID Status Reason Start Date Expiration Date V isits Requested Visits Authorized [id number] Closed Auto-Generate d Referral 03/21/2024 04/20/2025 1 1 Referral ID Status Reason Start Date Expiration Date Visits Re quested Visits Authorized [id number] Closed 1 1 Referral ID Status Reason Start Date Expiration Date Visits Re quested Visits Authorized [id number] Closed 1 1 Referral ID Status Reason Start Date Expiration Date Visits Requested Visits Authorized [id number] Authorized PCP Requested Referral 08/29/2024 08/29/2025 1 1 Specialty Diagnoses / Procedures Referred By Contac t Referred To Contact Diagnoses Type 2 diabetes mellitus with other specified complication, with long-term current use of insulin (HCC) Dietary counseling and surveillance BMI 34.0-34.9,adult AntonGinette thompson, [employer] SAL[employer] DIRECT[employer] [address] [place] [address] Referral ID Status Reason Start Date Expiration Date Visits Re quested Visits Authorized [id number] Denied 09/05/2024 11/04/2024 1 1 Specialty Diagnoses / Procedures Referred By Contac t Referred To Contact Diagnoses Type 2 diabetes mellitus with other specified complication, with long-term current use of insulin (HCC) Fela Gan MD [address] [address] Referral ID Status Reason Start Date Expiration Date V isits Requested Visits Authorized [id number] Pending Review 1 1 Referral ID Status Reason Start Date Expiration Date V isits Requested Visits Authorized [id number] Pending Review 10/31/2024 12/30/2024 1 1 Referral ID Status Reason Start Date Expiration Date Visits Re quested Visits Authorized [id number] Closed 1 1 Specialty Diagnoses / Procedures Referred By Contac t Referred To Contact Dermatology Diagnoses Hirsutism Procedures CONSULT TO DERMATOLOGY OFFICE/OUTPATIENT [facility] 60 MINUTES Brandan Leal MD [address] [place] [address] Referral ID Status Reason Start Date Expiration Date Visits Requested Visits Authorized [id number] Authorized PCP Requested Referral 12/25/2024 12/25/2025 1 1 Specialty Diagnoses / Procedures Referred By Contac t Referred To Contact Neurology Diagnoses Traumatic brain injury, with unknown loss of consciousness status, subsequent encounter Procedures CONSULT TO NEUROLOGY OFFICE/OUTPATIENT [facility] 60 MINUTES Brandan Leal MD [address] [place] [address] Referral ID Status Reason Start Date Expiration Date Visits Requested Visits Authorized [id number] Authorized PCP Requested Referral 12/25/2024 12/25/2025 1 1 Specialty Diagnoses / Procedures Referred By Contac t Referred To Contact Diagnoses Type 2 diabetes mellitus with other specified complication, with long-term current use of insulin (HCC) Ginette Chavez, PIPE [employer]TER.[employer] SALES DIRECTOR [address] [place] [address] Referral ID Status Reason Start Date Expiration Date V isits Requested Visits Authorized [id number] Pending Review 1 1 Additional Source Comments INFORMATION SOURCE (unrecogn ized section and content) DATE CREATED AUTHOR 07/19/2020 [facility] DATE CREATED AUTHOR AUTHOR'S ORGANIZ ATION 06/16/2023 [facility] DATE CREATED AUTHOR AUTHOR'S ORGANIZ ATION 04/26/2024 [facility] DATE CREATED AUTHOR AUTHOR'S ORGANIZ ATION 05/11/2024 [facility] DATE CREATED AUTHOR AUTHOR'S ORGANIZ ATION 08/05/2025 [facility] DATE CREATED AUTHOR AUTHOR'S ORGANIZ ATION 09/09/2025 [facility] DATE CREATED AUTHOR AUTHOR'S ORGANIZ ATION 10/01/2025 [facility] Goals (unrecognized section and content) Goals may be documented in a n alternate sectionGoals may be documented in an alternate sectionGoals may be documented in an alternate sectionGoals may be documented in an alternate sectionGoals may be documented in an alternate section Source Comments (unrecognize d section and content) In the event this informatio n is protected by the Federal Confidentiality of Alcohol and Drug Abuse Patient Records regulations: The Federal rules restrict any use of the information to criminally investigate or prosecute any alcohol or drug abuse patient.[facility] SystemIn the event this information is protected by the Federal Confidentiality of Alcohol and Drug Abuse Patient Records regulations: The Federal rules restrict any use of the information to criminally investigate or prosecute any alcohol or drug abuse patient.[facility] SystemIn the event this information is protected by the Federal Confidentiality of Alcohol and Drug Abuse Patient Records regulations: The Federal rules restrict any use of the information to criminally investigate or prosecute any alcohol or drug abuse patient.[facility] SystemIn the event this information is protected by the Federal Confidentiality of Alcohol and Drug Abuse Patient Records regulations: The Federal rules restrict any use of the information to criminally investigate or prosecute any alcohol or drug abuse patient.[facility] SystemIn the event this information is protected by the Federal Confidentiality of Alcohol and Drug Abuse Patient Records regulations: The Federal rules restrict any use of the information to criminally investigate or prosecute any alcohol or drug abuse patient.[facility] SystemIn the event this information is protected by the Federal Confidentiality of Alcohol and Drug Abuse Patient Records regulations: The Federal rules restrict any use of the information to criminally investigate or prosecute any alcohol or drug abuse patient.[facility] SystemIn the event this information is protected by the Federal Confidentiality of Alcohol and Drug Abuse Patient Records regulations: The Federal rules restrict any use of the information to criminally investigate or prosecute any alcohol or drug abuse patient.[facility] SystemIn the event this information is protected by the Federal Confidentiality of Alcohol and Drug Abuse Patient Records regulations: The Federal rules restrict any use of the information to criminally investigate or prosecute any alcohol or drug abuse patient.[facility] SystemIn the event this information is protected by the Federal Confidentiality of Alcohol and Drug Abuse Patient Records regulations: The Federal rules restrict any use of the information to criminally investigate or prosecute any alcohol or drug abuse patient.[facility] SystemIn the event this information is protected by the Federal Confidentiality of Alcohol and Drug Abuse Patient Records regulations: The Federal rules restrict any use of the information to criminally investigate or prosecute any alcohol or drug abuse patient.[facility] SystemIn the event this information is protected by the Federal Confidentiality of Alcohol and Drug Abuse Patient Records regulations: The Federal rules restrict any use of the information to criminally investigate or prosecute any alcohol or drug abuse patient.[facility] SystemIn the event this information is protected by the Federal Confidentiality of Alcohol and Drug Abuse Patient Records regulations: The Federal rules restrict any use of the information to criminally investigate or prosecute any alcohol or drug abuse patient.[facility] SystemIn the event this information is protected by the Federal Confidentiality of Alcohol and Drug Abuse Patient Records regulations: The Federal rules restrict any use of the information to criminally investigate or prosecute any alcohol or drug abuse patient.[facility] SystemIn the event this information is protected by the Federal Confidentiality of Alcohol and Drug Abuse Patient Records regulations: The Federal rules restrict any use of the information to criminally investigate or prosecute any alcohol or drug abuse patient.[facility] SystemIn the event this information is protected by the Federal Confidentiality of Alcohol and Drug Abuse Patient Records regulations: The Federal rules restrict any use of the information to criminally investigate or prosecute any alcohol or drug abuse patient.[facility] SystemIn the event this information is protected by the Federal Confidentiality of Alcohol and Drug Abuse Patient Records regulations: The Federal rules restrict any use of the information to criminally investigate or prosecute any alcohol or drug abuse patient.[facility] SystemIn the event this information is protected by the Federal Confidentiality of Alcohol and Drug Abuse Patient Records regulations: The Federal rules restrict any use of the information to criminally investigate or prosecute any alcohol or drug abuse patient.[facility] SystemIn the event this information is protected by the Federal Confidentiality of Alcohol and Drug Abuse Patient Records regulations: The Federal rules restrict any use of the information to criminally investigate or prosecute any alcohol or drug abuse patient.[facility]In the event this information is protected by the Federal Confidentiality of Alcohol and Drug Abuse Patient Records regulations: The Federal rules restrict any use of the information to criminally investigate or prosecute any alcohol or drug abuse patient.[facility]In the event this information is protected by the Federal Confidentiality of Alcohol and Drug Abuse Patient Records regulations: The Federal rules restrict any use of the information to criminally investigate or prosecute any alcohol or drug abuse patient.[facility]In the event this information is protected by the Federal Confidentiality of Alcohol and Drug Abuse Patient Records regulations: The Federal rules restrict any use of the information to criminally investigate or prosecute any alcohol or drug abuse patient.[facility]In the event this information is protected by the Federal Confidentiality of Alcohol and Drug Abuse Patient Records regulations: The Federal rules restrict any use of the information to criminally investigate or prosecute any alcohol or drug abuse patient.[facility]In the event this information is protected by the Federal Confidentiality of Alcohol and Drug Abuse Patient Records regulations: The Federal rules restrict any use of the information to criminally investigate or prosecute any alcohol or drug abuse patient.[facility]In the event this information is protected by the Federal Confidentiality of Alcohol and Drug Abuse Patient Records regulations: The Federal rules restrict any use of the information to criminally investigate or prosecute any alcohol or drug abuse patient.[facility]In the event this information is protected by the Federal Confidentiality of Alcohol and Drug Abuse Patient Records regulations: The Federal rules restrict any use of the information to criminally investigate or prosecute any alcohol or drug abuse patient.[facility]In the event this information is protected by the Federal Confidentiality of Alcohol and Drug Abuse Patient Records regulations: The Federal rules restrict any use of the information to criminally investigate or prosecute any alcohol or drug abuse patient.[facility]In the event this information is protected by the Federal Confidentiality of Alcohol and Drug Abuse Patient Records regulations: The Federal rules restrict any use of the information to criminally investigate or prosecute any alcohol or drug abuse patient.[facility]In the event this information is protected by the Federal Confidentiality of Alcohol and Drug Abuse Patient Records regulations: The Federal rules restrict any use of the information to criminally investigate or prosecute any alcohol or drug abuse patient.[facility]In the event this information is protected by the Federal Confidentiality of Alcohol and Drug Abuse Patient Records regulations: The Federal rules restrict any use of the information to criminally investigate or prosecute any alcohol or drug abuse patient.[facility]In the event this information is protected by the Federal Confidentiality of Alcohol and Drug Abuse Patient Records regulations: The Federal rules restrict any use of the information to criminally investigate or prosecute any alcohol or drug abuse patient.[facility]In the event this information is protected by the Federal Confidentiality of Alcohol and Drug Abuse Patient Records regulations: The Federal rules restrict any use of the information to criminally investigate or prosecute any alcohol or drug abuse patient.[facility]In the event this information is protected by the Federal Confidentiality of Alcohol and Drug Abuse Patient Records regulations: The Federal rules restrict any use of the information to criminally investigate or prosecute any alcohol or drug abuse patient.[facility]In the event this information is protected by the Federal Confidentiality of Alcohol and Drug Abuse Patient Records regulations: The Federal rules restrict any use of the information to criminally investigate or prosecute any alcohol or drug abuse patient.[facility]In the event this information is protected by the Federal Confidentiality of Alcohol and Drug Abuse Patient Records regulations: The Federal rules restrict any use of the information to criminally investigate or prosecute any alcohol or drug abuse patient.[facility]In the event this information is protected by the Federal Confidentiality of Alcohol and Drug Abuse Patient Records regulations: The Federal rules restrict any use of the information to criminally investigate or prosecute any alcohol or drug abuse patient.[facility]In the event this information is protected by the Federal Confidentiality of Alcohol and Drug Abuse Patient Records regulations: The Federal rules restrict any use of the information to criminally investigate or prosecute any alcohol or drug abuse patient.[facility]In the event this information is protected by the Federal Confidentiality of Alcohol and Drug Abuse Patient Records regulations: The Federal rules restrict any use of the information to criminally investigate or prosecute any alcohol or drug abuse patient.[facility]In the event this information is protected by the Federal Confidentiality of Alcohol and Drug Abuse Patient Records regulations: The Federal rules restrict any use of the information to criminally investigate or prosecute any alcohol or drug abuse patient.[facility]In the event this information is protected by the Federal Confidentiality of Alcohol and Drug Abuse Patient Records regulations: The Federal rules restrict any use of the information to criminally investigate or prosecute any alcohol or drug abuse patient.[facility]In the event this information is protected by the Federal Confidentiality of Alcohol and Drug Abuse Patient Records regulations: The Federal rules restrict any use of the information to criminally investigate or prosecute any alcohol or drug abuse patient.[facility]In the event this information is protected by the Federal Confidentiality of Alcohol and Drug Abuse Patient Records regulations: The Federal rules restrict any use of the information to criminally investigate or prosecute any alcohol or drug abuse patient.[facility]In the event this information is protected by the Federal Confidentiality of Alcohol and Drug Abuse Patient Records regulations: The Federal rules restrict any use of the information to criminally investigate or prosecute any alcohol or drug abuse patient.[facility] the event this information is protected by the Federal Confidentiality of Alcohol and Drug Abuse Patient Records regulations: The Federal rules restrict any use of the information to criminally investigate or prosecute any alcohol or drug abuse patient.[facility]In the event this information is protected by the Federal Confidentiality of Alcohol and Drug Abuse Patient Records regulations: The Federal rules restrict any use of the information to criminally investigate or prosecute any alcohol or drug abuse patient.[facility]In the event this information is protected by the Federal Confidentiality of Alcohol and Drug Abuse Patient Records regulations: The Federal rules restrict any use of the information to criminally investigate or prosecute any alcohol or drug abuse patient.[facility]In the event this information is protected by the Federal Confidentiality of Alcohol and Drug Abuse Patient Records regulations: The Federal rules restrict any use of the information to criminally investigate or prosecute any alcohol or drug abuse patient.[facility]In the event this information is protected by the Federal Confidentiality of Alcohol and Drug Abuse Patient Records regulations: The Federal rules restrict any use of the information to criminally investigate or prosecute any alcohol or drug abuse patient.[facility]In the event this information is protected by the Federal Confidentiality of Alcohol and Drug Abuse Patient Records regulations: The Federal rules restrict any use of the information to criminally investigate or prosecute any alcohol or drug abuse patient.[facility]In the event this information is protected by the Federal Confidentiality of Alcohol and Drug Abuse Patient Records regulations: The Federal rules restrict any use of the information to criminally investigate or prosecute any alcohol or drug abuse patient.[facility]In the event this information is protected by the Federal Confidentiality of Alcohol and Drug Abuse Patient Records regulations: The Federal rules restrict any use of the information to criminally investigate or prosecute any alcohol or drug abuse patient.[facility]In the event this information is protected by the Federal Confidentiality of Alcohol and Drug Abuse Patient Records regulations: The Federal rules restrict any use of the information to criminally investigate or prosecute any alcohol or drug abuse patient.[facility]In the event this information is protected by the Federal Confidentiality of Alcohol and Drug Abuse Patient Records regulations: The Federal rules restrict any use of the information to criminally investigate or prosecute any alcohol or drug abuse patient.[facility]In the event this information is protected by the Federal Confidentiality of Alcohol and Drug Abuse Patient Records regulations: The Federal rules restrict any use of the information to criminally investigate or prosecute any alcohol or drug abuse patient.[facility]In the event this information is protected by the Federal Confidentiality of Alcohol and Drug Abuse Patient Records regulations: The Federal rules restrict any use of the information to criminally investigate or prosecute any alcohol or drug abuse patient.[facility]In the event this information is protected by the Federal Confidentiality of Alcohol and Drug Abuse Patient Records regulations: The Federal rules restrict any use of the information to criminally investigate or prosecute any alcohol or drug abuse patient.[facility]In the event this information is protected by the Federal Confidentiality of Alcohol and Drug Abuse Patient Records regulations: The Federal rules restrict any use of the information to criminally investigate or prosecute any alcohol or drug abuse patient.[facility]In the event this information is protected by the Federal Confidentiality of Alcohol and Drug Abuse Patient Records regulations: The Federal rules restrict any use of the information to criminally investigate or prosecute any alcohol or drug abuse patient.[facility]In the event this information is protected by the Federal Confidentiality of Alcohol and Drug Abuse Patient Records regulations: The Federal rules restrict any use of the information to criminally investigate or prosecute any alcohol or drug abuse patient.[facility]In the event this information is protected by the Federal Confidentiality of Alcohol and Drug Abuse Patient Records regulations: The Federal rules restrict any use of the information to criminally investigate or prosecute any alcohol or drug abuse patient.[facility]In the event this information is protected by the Federal Confidentiality of Alcohol and Drug Abuse Patient Records regulations: The Federal rules restrict any use of the information to criminally investigate or prosecute any alcohol or drug abuse patient.[facility]In the event this information is protected by the Federal Confidentiality of Alcohol and Drug Abuse Patient Records regulations: The Federal rules restrict any use of the information to criminally investigate or prosecute any alcohol or drug abuse patient.[facility]In the event this information is protected by the Federal Confidentiality of Alcohol and Drug Abuse Patient Records regulations: The Federal rules restrict any use of the information to criminally investigate or prosecute any alcohol or drug abuse patient.[facility]In the event this information is protected by the Federal Confidentiality of Alcohol and Drug Abuse Patient Records regulations: The Federal rules restrict any use of the information to criminally investigate or prosecute any alcohol or drug abuse patient.[facility]In the event this information is protected by the Federal Confidentiality of Alcohol and Drug Abuse Patient Records regulations: The Federal rules restrict any use of the information to criminally investigate or prosecute any alcohol or drug abuse patient.[facility]In the event this information is protected by the Federal Confidentiality of Alcohol and Drug Abuse Patient Records regulations: The Federal rules restrict any use of the information to criminally investigate or prosecute any alcohol or drug abuse patient.[facility]In the event this information is protected by the Federal Confidentiality of Alcohol and Drug Abuse Patient Records regulations: The Federal rules restrict any use of the information to criminally investigate or prosecute any alcohol or drug abuse patient.[facility]In the event this information is protected by the Federal Confidentiality of Alcohol and Drug Abuse Patient Records regulations: The Federal rules restrict any use of the information to criminally investigate or prosecute any alcohol or drug abuse patient.[facility]In the event this information is protected by the Federal Confidentiality of Alcohol and Drug Abuse Patient Records regulations: The Federal rules restrict any use of the information to criminally investigate or prosecute any alcohol or drug abuse patient.[facility]In the event this information is protected by the Federal Confidentiality of Alcohol and Drug Abuse Patient Records regulations: The Federal rules restrict any use of the information to criminally investigate or prosecute any alcohol or drug abuse patient.[facility]In the event this information is protected by the Federal Confidentiality of Alcohol and Drug Abuse Patient Records regulations: The Federal rules restrict any use of the information to criminally investigate or prosecute any alcohol or drug abuse patient.[facility]In the event this information is protected by the Federal Confidentiality of Alcohol and Drug Abuse Patient Records regulations: The Federal rules restrict any use of the information to criminally investigate or prosecute any alcohol or drug abuse patient.[facility]In the event this information is protected by the Federal Confidentiality of Alcohol and Drug Abuse Patient Records regulations: The Federal rules restrict any use of the information to criminally investigate or prosecute any alcohol or drug abuse patient.[facility]In the event this information is protected by the Federal Confidentiality of Alcohol and Drug Abuse Patient Records regulations: The Federal rules restrict any use of the information to criminally investigate or prosecute any alcohol or drug abuse patient.[facility]In the event this information is protected by the Federal Confidentiality of Alcohol and Drug Abuse Patient Records regulations: The Federal rules restrict any use of the information to criminally investigate or prosecute any alcohol or drug abuse patient.[facility]In the event this information is protected by the Federal Confidentiality of Alcohol and Drug Abuse Patient Records regulations: The Federal rules restrict any use of the information to criminally investigate or prosecute any alcohol or drug abuse patient.[facility]In the event this information is protected by the Federal Confidentiality of Alcohol and Drug Abuse Patient Records regulations: The Federal rules restrict any use of the information to criminally investigate or prosecute any alcohol or drug abuse patient.[facility]In the event this information is protected by the Federal Confidentiality of Alcohol and Drug Abuse Patient Records regulations: The Federal rules restrict any use of the information to criminally investigate or prosecute any alcohol or drug abuse patient.[facility]In the event this information is protected by the Federal Confidentiality of Alcohol and Drug Abuse Patient Records regulations: The Federal rules restrict any use of the information to criminally investigate or prosecute any alcohol or drug abuse patient.[facility]In the event this information is protected by the Federal Confidentiality of Alcohol and Drug Abuse Patient Records regulations: The Federal rules restrict any use of the information to criminally investigate or prosecute any alcohol or drug abuse patient.[facility]In the event this information is protected by the Federal Confidentiality of Alcohol and Drug Abuse Patient Records regulations: The Federal rules restrict any use of the information to criminally investigate or prosecute any alcohol or drug abuse patient.[facility]In the event this information is protected by the Federal Confidentiality of Alcohol and Drug Abuse Patient Records regulations: The Federal rules restrict any use of the information to criminally investigate or prosecute any alcohol or drug abuse patient.[facility]In the event this information is protected by the Federal Confidentiality of Alcohol and Drug Abuse Patient Records regulations: The Federal rules restrict any use of the information to criminally investigate or prosecute any alcohol or drug abuse patient.[facility]In the event this information is protected by the Federal Confidentiality of Alcohol and Drug Abuse Patient Records regulations: The Federal rules restrict any use of the information to criminally investigate or prosecute any alcohol or drug abuse patient.[facility]In the event this information is protected by the Federal Confidentiality of Alcohol and Drug Abuse Patient Records regulations: The Federal rules restrict any use of the information to criminally investigate or prosecute any alcohol or drug abuse patient.[facility]In the event this information is protected by the Federal Confidentiality of Alcohol and Drug Abuse Patient Records regulations: The Federal rules restrict any use of the information to criminally investigate or prosecute any alcohol or drug abuse patient.[facility]In the event this information is protected by the Federal Confidentiality of Alcohol and Drug Abuse Patient Records regulations: The Federal rules restrict any use of the information to criminally investigate or prosecute any alcohol or drug abuse patient.[facility]In the event this information is protected by the Federal Confidentiality of Alcohol and Drug Abuse Patient Records regulations: The Federal rules restrict any use of the information to criminally investigate or prosecute any alcohol or drug abuse patient.[facility]In the event this information is protected by the Federal Confidentiality of Alcohol and Drug Abuse Patient Records regulations: The Federal rules restrict any use of the information to criminally investigate or prosecute any alcohol or drug abuse patient.[facility]In the event this information is protected by the Federal Confidentiality of Alcohol and Drug Abuse Patient Records regulations: The Federal rules restrict any use of the information to criminally investigate or prosecute any alcohol or drug abuse patient.[facility]In the event this information is protected by the Federal Confidentiality of Alcohol and Drug Abuse Patient Records regulations: The Federal rules restrict any use of the information to criminally investigate or prosecute any alcohol or drug abuse patient.[facility]In the event this information is protected by the Federal Confidentiality of Alcohol and Drug Abuse Patient Records regulations: The Federal rules restrict any use of the information to criminally investigate or prosecute any alcohol or drug abuse patient.[facility]In the event this information is protected by the Federal Confidentiality of Alcohol and Drug Abuse Patient Records regulations: The Federal rules restrict any use of the information to criminally investigate or prosecute any alcohol or drug abuse patient.[facility] the event this information is protected by the Federal Confidentiality of Alcohol and Drug Abuse Patient Records regulations: The Federal rules restrict any use of the information to criminally investigate or prosecute any alcohol or drug abuse patient.[facility]In the event this information is protected by the Federal Confidentiality of Alcohol and Drug Abuse Patient Records regulations: The Federal rules restrict any use of the information to criminally investigate or prosecute any alcohol or drug abuse patient.[facility]In the event this information is protected by the Federal Confidentiality of Alcohol and Drug Abuse Patient Records regulations: The Federal rules restrict any use of the information to criminally investigate or prosecute any alcohol or drug abuse patient.[facility]In the event this information is protected by the Federal Confidentiality of Alcohol and Drug Abuse Patient Records regulations: The Federal rules restrict any use of the information to criminally investigate or prosecute any alcohol or drug abuse patient.[facility]In the event this information is protected by the Federal Confidentiality of Alcohol and Drug Abuse Patient Records regulations: The Federal rules restrict any use of the information to criminally investigate or prosecute any alcohol or drug abuse patient.[facility]In the event this information is protected by the Federal Confidentiality of Alcohol and Drug Abuse Patient Records regulations: The Federal rules restrict any use of the information to criminally investigate or prosecute any alcohol or drug abuse patient.[facility]In the event this information is protected by the Federal Confidentiality of Alcohol and Drug Abuse Patient Records regulations: The Federal rules restrict any use of the information to criminally investigate or prosecute any alcohol or drug abuse patient.[facility]In the event this information is protected by the Federal Confidentiality of Alcohol and Drug Abuse Patient Records regulations: The Federal rules restrict any use of the information to criminally investigate or prosecute any alcohol or drug abuse patient.[facility]In the event this information is protected by the Federal Confidentiality of Alcohol and Drug Abuse Patient Records regulations: The Federal rules restrict any use of the information to criminally investigate or prosecute any alcohol or drug abuse patient.[facility]In the event this information is protected by the Federal Confidentiality of Alcohol and Drug Abuse Patient Records regulations: The Federal rules restrict any use of the information to criminally investigate or prosecute any alcohol or drug abuse patient.[facility]In the event this information is protected by the Federal Confidentiality of Alcohol and Drug Abuse Patient Records regulations: The Federal rules restrict any use of the information to criminally investigate or prosecute any alcohol or drug abuse patient.[facility]In the event this information is protected by the Federal Confidentiality of Alcohol and Drug Abuse Patient Records regulations: The Federal rules restrict any use of the information to criminally investigate or prosecute any alcohol or drug abuse patient.[facility] SystemIn the event this information is protected by the Federal Confidentiality of Alcohol and Drug Abuse Patient Records regulations: The Federal rules restrict any use of the information to criminally investigate or prosecute any alcohol or drug abuse patient.[facility] SystemIn the event this information is protected by the Federal Confidentiality of Alcohol and Drug Abuse Patient Records regulations: The Federal rules restrict any use of the information to criminally investigate or prosecute any alcohol or drug abuse patient.[facility] SystemIn the event this information is protected by the Federal Confidentiality of Alcohol and Drug Abuse Patient Records regulations: The Federal rules restrict any use of the information to criminally investigate or prosecute any alcohol or drug abuse patient.[facility] SystemIn the event this information is protected by the Federal Confidentiality of Alcohol and Drug Abuse Patient Records regulations: The Federal rules restrict any use of the information to criminally investigate or prosecute any alcohol or drug abuse patient.[facility] SystemIn the event this information is protected by the Federal Confidentiality of Alcohol and Drug Abuse Patient Records regulations: The Federal rules restrict any use of the information to criminally investigate or prosecute any alcohol or drug abuse patient.[facility] SystemIn the event this information is protected by the Federal Confidentiality of Alcohol and Drug Abuse Patient Records regulations: The Federal rules restrict any use of the information to criminally investigate or prosecute any alcohol or drug abuse patient.[facility] SystemIn the event this information is protected by the Federal Confidentiality of Alcohol and Drug Abuse Patient Records regulations: The Federal rules restrict any use of the information to criminally investigate or prosecute any alcohol or drug abuse patient.[facility] SystemIn the event this information is protected by the Federal Confidentiality of Alcohol and Drug Abuse Patient Records regulations: The Federal rules restrict any use of the information to criminally investigate or prosecute any alcohol or drug abuse patient.[facility] SystemIn the event this information is protected by the Federal Confidentiality of Alcohol and Drug Abuse Patient Records regulations: The Federal rules restrict any use of the information to criminally investigate or prosecute any alcohol or drug abuse patient.[facility] SystemIn the event this information is protected by the Federal Confidentiality of Alcohol and Drug Abuse Patient Records regulations: The Federal rules restrict any use of the information to criminally investigate or prosecute any alcohol or drug abuse patient.[facility] SystemIn the event this information is protected by the Federal Confidentiality of Alcohol and Drug Abuse Patient Records regulations: The Federal rules restrict any use of the information to criminally investigate or prosecute any alcohol or drug abuse patient.[facility] SystemIn the event this information is protected by the Federal Confidentiality of Alcohol and Drug Abuse Patient Records regulations: The Federal rules restrict any use of the information to criminally investigate or prosecute any alcohol or drug abuse patient.[facility] SystemIn the event this information is protected by the Federal Confidentiality of Alcohol and Drug Abuse Patient Records regulations: The Federal rules restrict any use of the information to criminally investigate or prosecute any alcohol or drug abuse patient.[facility] SystemIn the event this information is protected by the Federal Confidentiality of Alcohol and Drug Abuse Patient Records regulations: The Federal rules restrict any use of the information to criminally investigate or prosecute any alcohol or drug abuse patient.[facility] SystemIn the event this information is protected by the Federal Confidentiality of Alcohol and Drug Abuse Patient Records regulations: The Federal rules restrict any use of the information to criminally investigate or prosecute any alcohol or drug abuse patient.[facility] SystemIn the event this information is protected by the Federal Confidentiality of Alcohol and Drug Abuse Patient Records regulations: The Federal rules restrict any use of the information to criminally investigate or prosecute any alcohol or drug abuse patient.[facility] SystemIn the event this information is protected by the Federal Confidentiality of Alcohol and Drug Abuse Patient Records regulations: The Federal rules restrict any use of the information to criminally investigate or prosecute any alcohol or drug abuse patient.[facility] SystemIn the event this information is protected by the Federal Confidentiality of Alcohol and Drug Abuse Patient Records regulations: The Federal rules restrict any use of the information to criminally investigate or prosecute any alcohol or drug abuse patient.[facility] SystemIn the event this information is protected by the Federal Confidentiality of Alcohol and Drug Abuse Patient Records regulations: The Federal rules restrict any use of the information to criminally investigate or prosecute any alcohol or drug abuse patient.[facility] SystemIn the event this information is protected by the Federal Confidentiality of Alcohol and Drug Abuse Patient Records regulations: The Federal rules restrict any use of the information to criminally investigate or prosecute any alcohol or drug abuse patient.[facility] SystemIn the event this information is protected by the Federal Confidentiality of Alcohol and Drug Abuse Patient Records regulations: The Federal rules restrict any use of the information to criminally investigate or prosecute any alcohol or drug abuse patient.[facility] SystemIn the event this information is protected by the Federal Confidentiality of Alcohol and Drug Abuse Patient Records regulations: The Federal rules restrict any use of the information to criminally investigate or prosecute any alcohol or drug abuse patient.[facility] SystemIn the event this information is protected by the Federal Confidentiality of Alcohol and Drug Abuse Patient Records regulations: The Federal rules restrict any use of the information to criminally investigate or prosecute any alcohol or drug abuse patient.[facility] SystemIn the event this information is protected by the Federal Confidentiality of Alcohol and Drug Abuse Patient Records regulations: The Federal rules restrict any use of the information to criminally investigate or prosecute any alcohol or drug abuse patient.[facility] SystemIn the event this information is protected by the Federal Confidentiality of Alcohol and Drug Abuse Patient Records regulations: The Federal rules restrict any use of the information to criminally investigate or prosecute any alcohol or drug abuse patient.[facility] SystemIn the event this information is protected by the Federal Confidentiality of Alcohol and Drug Abuse Patient Records regulations: The Federal rules restrict any use of the information to criminally investigate or prosecute any alcohol or drug abuse patient.[facility] SystemIn the event this information is protected by the Federal Confidentiality of Alcohol and Drug Abuse Patient Records regulations: The Federal rules restrict any use of the information to criminally investigate or prosecute any alcohol or drug abuse patient.[facility] SystemIn the event this information is protected by the Federal Confidentiality of Alcohol and Drug Abuse Patient Records regulations: The Federal rules restrict any use of the information to criminally investigate or prosecute any alcohol or drug abuse patient.[facility] SystemIn the event this information is protected by the Federal Confidentiality of Alcohol and Drug Abuse Patient Records regulations: The Federal rules restrict any use of the information to criminally investigate or prosecute any alcohol or drug abuse patient.[facility] SystemIn the event this information is protected by the Federal Confidentiality of Alcohol and Drug Abuse Patient Records regulations: The Federal rules restrict any use of the information to criminally investigate or prosecute any alcohol or drug abuse patient.[facility] SystemIn the event this information is protected by the Federal Confidentiality of Alcohol and Drug Abuse Patient Records regulations: The Federal rules restrict any use of the information to criminally investigate or prosecute any alcohol or drug abuse patient.[facility] SystemIn the event this information is protected by the Federal Confidentiality of Alcohol and Drug Abuse Patient Records regulations: The Federal rules restrict any use of the information to criminally investigate or prosecute any alcohol or drug abuse patient.[facility] SystemIn the event this information is protected by the Federal Confidentiality of Alcohol and Drug Abuse Patient Records regulations: The Federal rules restrict any use of the information to criminally investigate or prosecute any alcohol or drug abuse patient.[facility] SystemIn the event this information is protected by the Federal Confidentiality of Alcohol and Drug Abuse Patient Records regulations: The Federal rules restrict any use of the information to criminally investigate or prosecute any alcohol or drug abuse patient.[facility] SystemIn the event this information is protected by the Federal Confidentiality of Alcohol and Drug Abuse Patient Records regulations: The Federal rules restrict any use of the information to criminally investigate or prosecute any alcohol or drug abuse patient.[facility] SystemIn the event this information is protected by the Federal Confidentiality of Alcohol and Drug Abuse Patient Records regulations: The Federal rules restrict any use of the information to criminally investigate or prosecute any alcohol or drug abuse patient.[facility] SystemIn the event this information is protected by the Federal Confidentiality of Alcohol and Drug Abuse Patient Records regulations: The Federal rules restrict any use of the information to criminally investigate or prosecute any alcohol or drug abuse patient.[facility] SystemIn the event this information is protected by the Federal Confidentiality of Alcohol and Drug Abuse Patient Records regulations: The Federal rules restrict any use of the information to criminally investigate or prosecute any alcohol or drug abuse patient.[facility] the event this information is protected by the Federal Confidentiality of Alcohol and Drug Abuse Patient Records regulations: The Federal rules restrict any use of the information to criminally investigate or prosecute any alcohol or drug abuse patient.[facility] SystemIn the event this information is protected by the Federal Confidentiality of Alcohol and Drug Abuse Patient Records regulations: The Federal rules restrict any use of the information to criminally investigate or prosecute any alcohol or drug abuse patient.[facility] SystemIn the event this information is protected by the Federal Confidentiality of Alcohol and Drug Abuse Patient Records regulations: The Federal rules restrict any use of the information to criminally investigate or prosecute any alcohol or drug abuse patient.[facility] SystemIn the event this information is protected by the Federal Confidentiality of Alcohol and Drug Abuse Patient Records regulations: The Federal rules restrict any use of the information to criminally investigate or prosecute any alcohol or drug abuse patient.[facility] SystemIn the event this information is protected by the Federal Confidentiality of Alcohol and Drug Abuse Patient Records regulations: The Federal rules restrict any use of the information to criminally investigate or prosecute any alcohol or drug abuse patient.[facility] SystemIn the event this information is protected by the Federal Confidentiality of Alcohol and Drug Abuse Patient Records regulations: The Federal rules restrict any use of the information to criminally investigate or prosecute any alcohol or drug abuse patient.[facility] SystemIn the event this information is protected by the Federal Confidentiality of Alcohol and Drug Abuse Patient Records regulations: The Federal rules restrict any use of the information to criminally investigate or prosecute any alcohol or drug abuse patient.[facility] SystemIn the event this information is protected by the Federal Confidentiality of Alcohol and Drug Abuse Patient Records regulations: The Federal rules restrict any use of the information to criminally investigate or prosecute any alcohol or drug abuse patient.[facility] SystemIn the event this information is protected by the Federal Confidentiality of Alcohol and Drug Abuse Patient Records regulations: The Federal rules restrict any use of the information to criminally investigate or prosecute any alcohol or drug abuse patient.[facility] SystemIn the event this information is protected by the Federal Confidentiality of Alcohol and Drug Abuse Patient Records regulations: The Federal rules restrict any use of the information to criminally investigate or prosecute any alcohol or drug abuse patient.[facility] SystemIn the event this information is protected by the Federal Confidentiality of Alcohol and Drug Abuse Patient Records regulations: The Federal rules restrict any use of the information to criminally investigate or prosecute any alcohol or drug abuse patient.[facility] SystemIn the event this information is protected by the Federal Confidentiality of Alcohol and Drug Abuse Patient Records regulations: The Federal rules restrict any use of the information to criminally investigate or prosecute any alcohol or drug abuse patient.[facility] SystemIn the event this information is protected by the Federal Confidentiality of Alcohol and Drug Abuse Patient Records regulations: The Federal rules restrict any use of the information to criminally investigate or prosecute any alcohol or drug abuse patient.[facility] SystemIn the event this information is protected by the Federal Confidentiality of Alcohol and Drug Abuse Patient Records regulations: The Federal rules restrict any use of the information to criminally investigate or prosecute any alcohol or drug abuse patient.[facility] SystemIn the event this information is protected by the Federal Confidentiality of Alcohol and Drug Abuse Patient Records regulations: The Federal rules restrict any use of the information to criminally investigate or prosecute any alcohol or drug abuse patient.[facility] SystemIn the event this information is protected by the Federal Confidentiality of Alcohol and Drug Abuse Patient Records regulations: The Federal rules restrict any use of the information to criminally investigate or prosecute any alcohol or drug abuse patient.[facility] SystemIn the event this information is protected by the Federal Confidentiality of Alcohol and Drug Abuse Patient Records regulations: The Federal rules restrict any use of the information to criminally investigate or prosecute any alcohol or drug abuse patient.[facility] SystemIn the event this information is protected by the Federal Confidentiality of Alcohol and Drug Abuse Patient Records regulations: The Federal rules restrict any use of the information to criminally investigate or prosecute any alcohol or drug abuse patient.[facility] SystemIn the event this information is protected by the Federal Confidentiality of Alcohol and Drug Abuse Patient Records regulations: The Federal rules restrict any use of the information to criminally investigate or prosecute any alcohol or drug abuse patient.[facility] SystemIn the event this information is protected by the Federal Confidentiality of Alcohol and Drug Abuse Patient Records regulations: The Federal rules restrict any use of the information to criminally investigate or prosecute any alcohol or drug abuse patient.[facility] SystemIn the event this information is protected by the Federal Confidentiality of Alcohol and Drug Abuse Patient Records regulations: The Federal rules restrict any use of the information to criminally investigate or prosecute any alcohol or drug abuse patient.[facility] SystemIn the event this information is protected by the Federal Confidentiality of Alcohol and Drug Abuse Patient Records regulations: The Federal rules restrict any use of the information to criminally investigate or prosecute any alcohol or drug abuse patient.[facility] SystemIn the event this information is protected by the Federal Confidentiality of Alcohol and Drug Abuse Patient Records regulations: The Federal rules restrict any use of the information to criminally investigate or prosecute any alcohol or drug abuse patient.[facility] SystemIn the event this information is protected by the Federal Confidentiality of Alcohol and Drug Abuse Patient Records regulations: The Federal rules restrict any use of the information to criminally investigate or prosecute any alcohol or drug abuse patient.[facility] SystemIn the event this information is protected by the Federal Confidentiality of Alcohol and Drug Abuse Patient Records regulations: The Federal rules restrict any use of the information to criminally investigate or prosecute any alcohol or drug abuse patient.[facility] SystemIn the event this information is protected by the Federal Confidentiality of Alcohol and Drug Abuse Patient Records regulations: The Federal rules restrict any use of the information to criminally investigate or prosecute any alcohol or drug abuse patient.[facility] SystemIn the event this information is protected by the Federal Confidentiality of Alcohol and Drug Abuse Patient Records regulations: The Federal rules restrict any use of the information to criminally investigate or prosecute any alcohol or drug abuse patient.[facility] SystemIn the event this information is protected by the Federal Confidentiality of Alcohol and Drug Abuse Patient Records regulations: The Federal rules restrict any use of the information to criminally investigate or prosecute any alcohol or drug abuse patient.[facility] SystemIn the event this information is protected by the Federal Confidentiality of Alcohol and Drug Abuse Patient Records regulations: The Federal rules restrict any use of the information to criminally investigate or prosecute any alcohol or drug abuse patient.[facility] SystemIn the event this information is protected by the Federal Confidentiality of Alcohol and Drug Abuse Patient Records regulations: The Federal rules restrict any use of the information to criminally investigate or prosecute any alcohol or drug abuse patient.[facility] SystemIn the event this information is protected by the Federal Confidentiality of Alcohol and Drug Abuse Patient Records regulations: The Federal rules restrict any use of the information to criminally investigate or prosecute any alcohol or drug abuse patient.[facility] SystemIn the event this information is protected by the Federal Confidentiality of Alcohol and Drug Abuse Patient Records regulations: The Federal rules restrict any use of the information to criminally investigate or prosecute any alcohol or drug abuse patient.[facility] SystemIn the event this information is protected by the Federal Confidentiality of Alcohol and Drug Abuse Patient Records regulations: The Federal rules restrict any use of the information to criminally investigate or prosecute any alcohol or drug abuse patient.[facility] SystemIn the event this information is protected by the Federal Confidentiality of Alcohol and Drug Abuse Patient Records regulations: The Federal rules restrict any use of the information to criminally investigate or prosecute any alcohol or drug abuse patient.[facility] SystemIn the event this information is protected by the Federal Confidentiality of Alcohol and Drug Abuse Patient Records regulations: The Federal rules restrict any use of the information to criminally investigate or prosecute any alcohol or drug abuse patient.[facility] SystemIn the event this information is protected by the Federal Confidentiality of Alcohol and Drug Abuse Patient Records regulations: The Federal rules restrict any use of the information to criminally investigate or prosecute any alcohol or drug abuse patient.[facility] SystemIn the event this information is protected by the Federal Confidentiality of Alcohol and Drug Abuse Patient Records regulations: The Federal rules restrict any use of the information to criminally investigate or prosecute any alcohol or drug abuse patient.[facility] SystemIn the event this information is protected by the Federal Confidentiality of Alcohol and Drug Abuse Patient Records regulations: The Federal rules restrict any use of the information to criminally investigate or prosecute any alcohol or drug abuse patient.[facility] SystemIn the event this information is protected by the Federal Confidentiality of Alcohol and Drug Abuse Patient Records regulations: The Federal rules restrict any use of the information to criminally investigate or prosecute any alcohol or drug abuse patient.[facility] SystemIn the event this information is protected by the Federal Confidentiality of Alcohol and Drug Abuse Patient Records regulations: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 Medicine 05/27/23 Yesy Fernandez DO [address] [facility] [place] [phone] PCP Resident Internal Medicine 07/18/22 Yesy Fernandez DO 1 [place] [facility] [place] [place], [place] [id number] Resident Internal Medicine 08/11/22 Yesy Fernandez DO [address] [place] [facility] [place] [id number] Referring Internal Medicine 01/29/24 Oliving Machine Operator Relationship Specialty Start Date End Date José Elizabeth MD 1 [place], [place] [id number] PCP - General Internal Medicine 05/27/23 Yes[facility] [place] [id number] [phone] PCP Resident Internal Medicine 07/18/22 Yesy Fernandez DO [address] [place] [facility] [place] [id number] [phone] Resident Internal Medicine 08/11/22 Yesy Fernandez DO [address] [facility] [place], [place] [id number] Referring Internal Medicine 01/29/24 Oliving Machine Operator Relationship Specialty Start Date End Date José Elizabeth MD 1 [place], [place] [id number] [phone] PCP - General Internal Medicine 05/27/23 Yesy Fernandez, 1 [place] [facility], [place] [id number] [phone] PCP Resident Internal Medicine 07/18/22 Yesy Fernandez DO [address] [facility] [place], [place] [id number] [phone] Resident Internal Medicine 08/11/22 Yesy Fernandez DO 1 [facility] [place] [address] Referring Internal Medicine 01/29/24 Oliving Machine Operator Relationship Specialty Start Date End Date José Elizabeth MD 1 [place], [place] [id number] [phone] PCP - General Internal Medicine 05/27/23 Yesy Fernandez DO [address] [place] [facility] [place] [address] PCP Resident Internal Medicine 07/18/22 Yesy Fernandez DO 1 [place] [address] Resident Internal Medicine 08/11/22 Yesy Fernandez DO 1 [place] [address] Referring Internal Medicine 01/29/24 Oliving Machine Operator Relationship Specialty Start Date End Date José Elizabeth MD 1 [facility], [place] [id number] [phone] PCP - General Internal Medicine 05/27/23 Yesy Fernandez DO [address] [facility] [facility] [place] [id number] [phone] PCP Resident Internal Medicine 07/18/22 Yesy Fernandez DO [address] [facility] [facility] [place], [place] [id number] [phone] Resident Internal Medicine 08/11/22 Yesy Fernandez DO 1 [place] [facility] [place], [place] [id number] [phone] Referring Internal Medicine 01/29/24 Oliving Machine Operator Relationship Specialty Start Date End Date José Elizabeth MD 1 [place], [place] [id number] [phone] PCP - General Internal Medicine 05/27/23 Yesy Fernandez DO 1 [facility] [place] [address] PCP Resident Internal Medicine 07/18/22 Yesy Fernandez DO 1 [facility] [place] [address] Resident Internal Medicine 08/11/22 Yesy Fernandez DO [facility] [place] [id number] [phone] Referring Internal Medicine 01/29/24 Oliving Machine Operator Relationship Specialty Start Date End Date José Elizabeth MD 1 [place], [place] [id number] [phone] PCP - General Internal Medicine 05/27/23 King Yesy, DO 1 [place], [place] [id number] PCP Resident Internal Medicine 07/18/22 [email or web address] 1 [place], [place] [id number] Resident Internal Medicine 08/11/22 [email or web address] 1 [place], [place] [phone] Referring Internal Medicine 01/29/24 Oliving Machine Operator Relationship Specialty Start Date End Date José Elizabeth MD 1 [place], [place] [id number] PCP - General Internal Medicine 05/27/23 Yasmeen Herzog MD 1 [place], [place] [id number] PCP Resident Internal Medicine 05/27/24 Oliving Machine Operator Relationship Specialty Start Date End Date José Elizabeth MD 1 [place], [place] [id number] PCP - General Internal Medicine 05/27/23 Yasmeen Herzog MD 1 [place] [address] PCP Resident Internal Medicine 05/27/24 Oliving Machine Operator Relationship Specialty Start Date End Date José Elizabeth MD 1 [place], [place] [id number] PCP - General Internal Medicine 05/27/23 Yasmeen Herzog MD 1 [place], [place] [id number] [phone] PCP Resident Internal Medicine 05/27/24 Oliving Machine Operator Relationship Specialty Start Date End Date José Elizabeth MD 1 [place], [place] [phone] PCP - General Internal Medicine 05/27/23 Yasmeen Herzog MD 1 [place], [place] [id number] PCP Resident Internal Medicine 05/27/24 Oliving Machine Operator Relationship Specialty Start Date End Date José Elizabeth MD 1 [place], [place] [id number] PCP - General Internal Medicine 05/27/23 Yasmeen Herzog MD 1 [place], [place] [id number] PCP Resident Internal Medicine 05/27/24 Oliving Machine Operator Relationship Specialty Start Date End Date José Elizabeth MD 1 [place], [place] [id number] PCP - General Internal Medicine 05/27/23 Yasmeen Herzog MD 1 [place] [address] PCP Resident Internal Medicine 05/27/24 Oliving Machine Operator Relationship Specialty Start Date End Date José Elizabeth MD 1 [place], [place] [id number] PCP - General Internal Medicine 05/27/23 Yasmeen Herzog MD 1 [place], [place] [id number] PCP Resident Internal Medicine 05/27/24 Oliving Machine Operator Relationship Specialty Start Date End Date José Elizabeth MD 1 [place] [address] PCP - General Internal Medicine 05/27/23 Yasmeen Herzog MD 1 [place], [place] [id number] PCP Resident Internal Medicine 05/27/24 Oliving Machine Operator Relationship Specialty Start Date End Date José Elizabeth MD 1 [place], [place] [id number] PCP - General Internal Medicine 05/27/23 Yasmeen Herzog MD 1 [place], [place] [id number] PCP Resident Internal Medicine 05/27/24 Oliving Machine Operator Relationship Specialty Start Date End Date José Elizabeth MD 1 [place] [address] PCP - General Internal Medicine 05/27/23 Yasmeen Herzog MD 1 [place] [address] PCP Resident Internal Medicine 05/27/24 Oliving Machine Operator Relationship Specialty Start Date End Date José Elizabeth MD 1 [place] [address] PCP - General Internal Medicine 05/27/23 Yasmeen Herzog MD 1 [place] [address] PCP Resident Internal Medicine 05/27/24 Oliving Machine Operator Relationship Specialty Start Date End Date José Elizabeth MD 1 [place], [place] [id number] PCP - General Internal Medicine 05/27/23 Yasmeen Herzog MD 1 [place], [place] 15043307 PCP Resident Internal Medicine 05/27/24 Oliving Machine Operator Relationship Specialty Start Date End Date José Elizabeth MD 1 [place], [place] [phone] PCP - General Internal Medicine 05/27/23 Yasmeen Herzog MD 1 [place], [place] 27782307 PCP Resident Internal Medicine 05/27/24 Oliving Machine Operator Relationship Specialty Start Date End Date José Elizabeth MD 1 [place], [place] [id number] PCP - General Internal Medicine 05/27/23 Yasmeen Herzog MD 1 [place], [place] [phone] PCP Resident Internal Medicine 05/27/24 Oliving Machine Operator Relationship Specialty Start Date End Date José Elizabeth MD 1 [place], [place] [phone] PCP - General Internal Medicine 05/27/23 Yasmeen Herzog MD 1 [place], [place] 54028307 PCP Resident Internal Medicine 05/27/24 Oliving Machine Operator Relationship Specialty Start Date End Date José Elizabeth MD 1 [place], [place] [id number] PCP - General Internal Medicine 05/27/23 Yesy Fernandez, DO PCP Resident Internal Medicine 07/18/22 05/26/24 Yesy Fernandez DO Resident Internal Medicine 08/11/22 05/26/24 Yesy Fernandez, DO Referring Internal Medicine 01/29/24 05/26/24 Oliving Machine Operator Relationship Specialty Start Date End Date José Elizabeth MD 1 [place] [address] PCP - General Internal Medicine 05/27/23 Yasmeen Herzog MD 1 [place], [place] [id number] PCP Resident Internal Medicine 05/27/24 Oliving Machine Operator Relationship Specialty Start Date End Date José Elizabeth MD 1 [place] [address] PCP - General Internal Medicine 05/27/23 Yasmeen Herzog MD 1 [place] [address] PCP Resident Internal Medicine 05/27/24 Oliving Machine Operator Relationship Specialty Start Date End Date José Elizabeth MD 1 [place] [address] PCP - General Internal Medicine 05/27/23 Yasmeen Herzog MD 1 [place], [place] [phone] PCP Resident Internal Medicine 05/27/24 Oliving Machine Operator Relationship Specialty Start Date End Date José Elizabeth MD 1 [place], [place] [phone] PCP - General Internal Medicine 05/27/23 Yasmeen Herzog MD 1 [place], [place] [id number] PCP Resident Internal Medicine 05/27/24 Oliving Machine Operator Relationship Specialty Start Date End Date José Elizabeth MD 1 [place], [place] [phone] PCP - General Internal Medicine 05/27/23 Yasmeen Herzog MD 1 [place], [place] 79412307 PCP Resident Internal Medicine 05/27/24 Oliving Machine Operator Relationship Specialty Start Date End Date José Elizabeth MD 1 [place] [address] PCP - General Internal Medicine 05/27/23 Yasmeen Herzog MD 1 [place], [place] [id number] PCP Resident Internal Medicine 05/27/24 Oliving Machine Operator Relationship Specialty Start Date End Date José Elizabeth MD 1 [place] [address] PCP - General Internal Medicine 05/27/23 Yasmeen Herzog MD 1 [place] [address] PCP Resident Internal Medicine 05/27/24 Oliving Machine Operator Relationship Specialty Start Date End Date José Elizabeth MD 1 [place] [address] PCP - General Internal Medicine 05/27/23 Yasmeen Herzog MD 1 [place], [place] 51455307 PCP Resident Internal Medicine 05/27/24 Oliving Machine Operator Relationship Specialty Start Date End Date José Elizabeth MD 1 [place], [place] [phone] PCP - General Internal Medicine 05/27/23 Yasmeen Herzog MD 1 [place], [place] [id number] PCP Resident Internal Medicine 05/27/24 Oliving Machine Operator Relationship Specialty Start Date End Date José Elizabeth MD 1 [place], [place] [id number] PCP - General Internal Medicine 05/27/23 Yasmeen Herzog MD 1 [place], [place] 84851307 PCP Resident Internal Medicine 05/27/24 Oliving Machine Operator Relationship Specialty Start Date End Date José Elizabeth MD 1 [place], [place] [phone] PCP - General Internal Medicine 05/27/23 Yasmeen Herzog MD 1 [place] [address] PCP Resident Internal Medicine 05/27/24 Oliving Machine Operator Relationship Specialty Start Date End Date José Elizabeth MD 1 [place], [place] [phone] PCP - General Internal Medicine 05/27/23 Yasmeen Herzog MD 1 [place], [place] 11676307 PCP Resident Internal Medicine 05/27/24 Oliving Machine Operator Relationship Specialty Start Date End Date José Elizabeth MD 1 [place], [place] [phone] PCP - General Internal Medicine 05/27/23 Yasmeen Herzog MD 1 [place], [place] 40285307 PCP Resident Internal Medicine 05/27/24 Oliving Machine Operator Relationship Specialty Start Date End Date José Elizabeth MD 1 [place], [place] [id number] PCP - General Internal Medicine 05/27/23 Yasmeen Herzog MD 1 [place], [place] 11695307 PCP Resident Internal Medicine 05/27/24 Oliving Machine Operator Relationship Specialty Start Date End Date José Elizabeth MD 1 [place], [place] [phone] PCP - General Internal Medicine 05/27/23 Yasmeen Herzog MD 1 [place], [place] 60498307 PCP Resident Internal Medicine 05/27/24 Sarah Jacome MD [address] [id number] Plastic Surgery 02/18/25 Oliving Machine Operator Relationship Specialty Start Date End Date José Elizabeth MD 1 [place], [place] [phone] PCP - General Internal Medicine 05/27/23 Yasmeen Herzog MD 1 [place] [address] PCP Resident Internal Medicine 05/27/24 Sarah Jacome MD [address] [place] [address] Plastic Surgery 02/18/25 Oliving Machine Operator Relationship Specialty Start Date End Date José Elizabeth MD 1 [place] [address] PCP - General Internal Medicine 05/27/23 Yasmeen Herzog MD 1 [place] [address] PCP Resident Internal Medicine 05/27/24 Sarah Jacome MD [address] [place] [address] Plastic Surgery 02/18/25 Oliving Machine Operator Relationship Specialty Start Date End Date José Elizabeth MD 1 [place] [address] PCP - General Internal Medicine 05/27/23 Yasmeen Herzog MD 1 [place] [address] PCP Resident Internal Medicine 05/27/24 Sarah Jacome MD [address] [place] [address] Plastic Surgery 02/18/25 Oliving Machine Operator Relationship Specialty Start Date End Date José Elizabeth MD 1 [place] [address] PCP - General Internal Medicine 05/27/23 Yasmeen Herzog MD 1 [place], [place] [id number] PCP Resident Internal Medicine 05/27/24 Sarah Jacome MD [address] [place] [address] Plastic Surgery 02/18/25 Oliving Machine Operator Relationship Specialty Start Date End Date José Elizabeth MD 1 [place] [address] PCP - General Internal Medicine 05/27/23 Yasmeen Herzog MD 1 [place] [address] PCP Resident Internal Medicine 05/27/24 Sarah Jacome MD [address] [place] [address] Plastic Surgery 02/18/25 Oliving Machine Operator Relationship Specialty Start Date End Date José Elizabeth MD [address] [place] [address] PCP - General Internal Medicine 05/27/23 Yasmeen Herzog MD 1 [place], [place] [phone] PCP Resident Internal Medicine 05/27/24 Sarah Jacome MD [address] [place] [address] Plastic Surgery 02/18/25 Oliving Machine Operator Relationship Specialty Start Date End Date José Elizabeth MD [address] [place] [address] PCP - General Internal Medicine 05/27/23 Yasmeen Herzog MD 1 [place], [place] [id number] PCP Resident Internal Medicine 05/27/24 Sarah Jacome MD [address] [place] [address] Plastic Surgery 02/18/25 Oliving Machine Operator Relationship Specialty Start Date End Date José Elizabeth MD 1 [place], [place] [id number] PCP - General Internal Medicine 05/27/23 Yasmeen Herzog MD 1 [place] [address] PCP Resident Internal Medicine 05/27/24 Sarah Jacome MD [address] [place] [address] Plastic Surgery 02/18/25 Oliving Machine Operator Relationship Specialty Start Date End Date José Elizabeth MD [address] [place] [address] PCP - General Internal Medicine 05/27/23 Yasmeen Herzog MD 1 [place] [address] PCP Resident Internal Medicine 05/27/24 Sarah Jacome MD [address] [place] [address] Plastic Surgery 02/18/25 Oliving Machine Operator Relationship Specialty Start Date End Date José Elizabeth MD 1 [place], [place] [phone] PCP - General Internal Medicine 05/27/23 Yasmeen Herzog MD 1 [place], [place] 28725307 PCP Resident Internal Medicine 05/27/24 Sarah Jacome MD [address] [place] [address] Plastic Surgery 02/18/25 Oliving Machine Operator Relationship Specialty Start Date End Date José Elizabeth MD [address] [place] [address] PCP - General Internal Medicine 05/27/23 Yasmeen Herzog MD 1 [place], [place] [phone] PCP Resident Internal Medicine 05/27/24 Sarah Jacome MD [address] [place] [address] Plastic Surgery 02/18/25 Oliving Machine Operator Relationship Specialty Start Date End Date José Elizabeth MD 1 [place], [place] [phone] PCP - General Internal Medicine 05/27/23 Yasmeen Herzog MD 1 [place], [place] 12805307 PCP Resident Internal Medicine 05/27/24 Sarah Jacome MD [address] [place] [address] Plastic Surgery 02/18/25 Oliving Machine Operator Relationship Specialty Start Date End Date José Elizabeth MD 1 [place], [place] [id number] PCP - General Internal Medicine 05/27/23 Yasmeen Herzog MD 1 [place], [place] 65913307 PCP Resident Internal Medicine 05/27/24 Sarah Jacome MD [address] [place] [address] Plastic Surgery 02/18/25 Oliving Machine Operator Relationship Specialty Start Date End Date José Elizabeth MD [address] [place] [address] PCP - General Internal Medicine 05/27/23 05/26/25 Yasmeen Herzog MD 1 [place], [place] 84469307 PCP Resident Internal Medicine 05/27/24 Sarah Jacome MD [address] [place] [address] Plastic Surgery 02/18/25 Oliving Machine Operator Relationship Specialty Start Date End Date Jessica Whitehead DO 1 [place] [address] PCP - General Internal Medicine 05/27/25 Yasmeen Herzog MD 1 [place], [place] 78659307 PCP Resident Internal Medicine 05/27/24 Sarah Jacome MD [address] [address] Plastic Surgery 02/18/25 Oliving Machine Operator Relationship Specialty Start Date End Date Jessica Whitehead DO 1 [place], [place] [id number] PCP - General Internal Medicine 05/27/25 Yasmeen Herzog MD 1 [place], [place] 32383307 PCP Resident Internal Medicine 05/27/24 Sarah Jacome MD [address] [address] Plastic Surgery 02/18/25 Oliving Machine Operator Relationship Specialty Start Date End Date Jessica Whitehead DO [address] [place] [address] PCP - General Internal Medicine 05/27/25 Yasmeen Herzog MD 1 [place] [address] PCP Resident Internal Medicine 05/27/24 Sarah Jacome MD [address] [address] Plastic Surgery 02/18/25 Oliving Machine Operator Relationship Specialty Start Date End Date Jessica Whitehead DO [address] [place] [address] PCP - General Internal Medicine 05/27/25 Yasmeen Herzog MD 1 [place], [place] 63038307 PCP Resident Internal Medicine 05/27/24 Sarah Jacome MD [address] [place] [address] Plastic Surgery 02/18/25 Oliving Machine Operator Relationship Specialty Start Date End Date Jessica Whitehead DO 1 [place], [place] [phone] PCP - General Internal Medicine 05/27/25 Yasmeen Herzog MD 1 [place], [place] 89253307 PCP Resident Internal Medicine 05/27/24 Sarah Jacome MD [address] [place] [address] Plastic Surgery 02/18/25 Oliving Machine Operator Relationship Specialty Start Date End Date José Elizabeth MD [address] [place] [address] PCP - General Internal Medicine 05/27/23 05/26/25 Jessica Whitehead DO [address] [place] [address] PCP - General Internal Medicine 05/27/25 Yasmeen Herzog MD 1 [place], [place] 59640307 PCP Resident Internal Medicine 05/27/24 Sarah Jacome MD [address] [place], [place] [address]23 Plastic Surgery 02/18/25 Oliving Machine Operator Relationship Specialty Start Date End Date Jessica Whitehead DO 1 [place], [place] [id number] PCP - General Internal Medicine 05/27/25 Yasmeen Herzog MD 1 [place], [place] 75020307 PCP Resident Internal Medicine 05/27/24 Sarah Jacome MD [address] [place], [place] 70553333 Plastic Surgery 02/18/25 Oliving Machine Operator Relationship Specialty Start Date End Date Jessica Whitehead DO 1 [place], [place] 36305307 PCP - General Internal Medicine 05/27/25 Yasmeen Herzog MD 1 [place], [place] 03670307 PCP Resident Internal Medicine 05/27/24 Sarah Jacome MD [address] [place], [place] [address]113 Plastic Surgery 02/18/25 Team Status: Active Member Role/Relationship Status Dates No Primary Care Physician Primary care physician Activ e Team Status: Inactive Member Role/Relationship Status Dates No Primary Care Physician Primary care physician Activ e Start: August 27, 2025 End: August 27, 2025 Dr. Jessica Henao , DO Emergency Departm ent Physician Active Start: August 27, 2025 End: August 27, 2025 <item> Privacy Markings (unrecogniz ed section and content) Section Author: Susanne Peoples PROHIBITION ON REDISCLOSURE OF CONFIDENTIAL INFORMATION This notice accompanies a disclosure of information concerning a client made to you with the consent of such client. Scheduled Active and Recently Administ ered Medications (unrecognized section and content) Medication Order 11/06/2023 11/07/2023 11/08/2023 Ipratropium-albuterol (DUONEB) 0.5-2.5 (3) MG/3ML nebulizer solution 3 mL (COMPLETED) 3 mL, Nebulization, ONCE, 1 dose, On Mon11/08/23 at 1445 1503 (Given - Provid er: Georgiana Baldwin RCP) Ondansetron 4mg/2ml (ZOFRAN) injection 4 mg (COMPLETED) 4 mg, Intravenous, ONCE, 1 dose, On Mon11/08/23 at 1345 1310 (Given - Provid er: Megan Pulido RN) Sodium chloride 0.9% IV solution 1,000 mL (COMPLETED) 1,000 mL, Intravenous, ONCE, 1 dose, On Mon11/08/23 at 1215 1255 ($$New Bag$$ - Provider: Megan Pulido RN)1450 (Stopped - Provider: Megan Pulido RN) FOR RECORDS PERTAINING TO PATIENTS WHO ARE [...] BE BASED ON THE PRIMARY CLINICAL RECORDS. [employer] provides no warranty or guarantee of the accuracy or completeness of information in this document.
--- NOTE | 2025-10-04 16:39 | EX.ED.DYSGE1 ---
HPI History of Present Illness Chief Complaint: GI Bleed Narrative Narrative: Chief complaint and HPI: 40-year-old female with past medical history of DM2, fibromyalgia, HTN presents for evaluation of GI bleed. Patient states today she had a large bowel movement that was painful. States there was maroon-colored blood in the toilet and on the toilet paper. She does not have menstrual cycles. Patient states she suffers from constipation in which she is on a stool softener but still has hard bowel movements. states that his stomach has been upset today as well. She denies any fever, chills, nausea, vomiting, dysuria. States she is having some mild abdominal pain in the lower quadrants since the bowel movement. Denies any daily alcohol use. Denies any daily NSAID use. Review of systems: See HPI Medications: As listed on the chart Allergies: As listed on the chart PFSH: Per chart Vital signs: As listed on the chart. Reviewed. Physical exam: Gen: A&O x3, NAD Head: Normocephalic, atraumatic Eyes: No sclera icterus, conjunctiva clear ENT: Moist mucous membranes CV: RRR, no murmurs Resp: Lungs CTA BL, no w/r/c GI: Abd soft, non-distended, mildly tender to palpation in the bilateral lower quadrant, no rebound or rigidity Rectal: Normal external examination. No evidence of hemorrhoids or fissures. Normal tone and sensation. No masses, fluctuance, or tenderness. No pain out of proportion. Stool brown on gloved finger. 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 release 24 hr tirzepatide 12.5 mg/0.5 mL 2.5 mg subcut QWEEK 09/22/23 Unknown History subcutaneous pen injector (Mounjaro) Allergy/AdvReac Type Severity Reaction Status Date / Time Dihydroaminopryidine Allergy Rash Verified 10/04/25 15:59 Antibiotics hydrocodone Allergy Hives Verified 10/04/25 15:59 Sulfa (Sulfonamide Allergy Hives Verified 10/04/25 15:59 Antibiotics) sulfamethoxazole (From Allergy Hives Verified 10/04/25 15:59 Bactrim) trimethoprim (From Bactrim) Allergy Hives Verified 10/04/25 15:59 bupropion (From Wellbutrin) AdvReac Intermediate Other Verified 10/04/25 15:59 azithromycin AdvReac Diarrhea Verified 10/04/25 15:59 Surgical History S/P panniculectomy Hx of bilateral breast reduction surgery History of hysterectomy History of 3 sections Social History household members: spouse and none housing: house Smoking Status: Never smoker substance use type: does not use EXAM Physical Exam Const Vital Signs: 10/04/25 15:59 10/04/25 16:14 10/04/25 18:24 Temperature 98.4 F Temperature Source Oral Pulse Rate 84 78 78 Respiratory Rate 18 16 17 Blood Pressure 126/91 H 139/76 H 126/75 H Blood Pressure Mean 102 97 92 Pulse Ox 97 99 100 Oxygen Delivery Method Room Air Room Air Room Air 10/04/25 19:56 Temperature Temperature Source Pulse Rate 74 Respiratory Rate 18 Blood Pressure 124/79 H Blood Pressure Mean 94 Pulse Ox 99 Oxygen Delivery Method Room Air MDM MDM MDM Narrative Medical decision making narrative: 40-year-old female with past medical history of DM2, fibromyalgia, HTN presents for evaluation of GI bleed. Patient states today she had a large bowel movement that was painful. States there was maroon-colored blood in the toilet and on the toilet paper. She does not have menstrual cycles. Patient states she suffers from constipation in which she is on a stool softener but still has hard bowel movements. Differential diagnosis includes but is not limited to hemorrhoidal bleeding, diverticulitis, colitis, upper GI bleed, lower GI bleed, electrolyte abnormality, anemia. NS bolus, Zofran, fentanyl ordered for symptoms. Laboratory workup ordered including CT abdomen pelvis. Patient declined narcotics therefore Tylenol ordered. CBC without any leukocytosis or anemia. Platelets unremarkable. CMP unremarkable. Lipase unremarkable. UA negative for UTI. Lactic acid unremarkable. Stool occult positive. CT abdomen pelvis without any acute abnormality. Patient's care was delayed due to radiology delay. At this point in time no clear etiology for patient's bleeding. Although suspect it may be mucosal irritation. GI was consulted and I spoke with Dr. Espinoza. He agrees it may be due to mucosal irritation from may be slight ischemic pathology. Recommended following up outpatient. Patient stable to discharge home. Patient updated all the results of her and understand the plan. Return precautions explained. Impression: 1. Lower GI bleed 2. Abdominal pain Lab Data Labs: Laboratory Results - last 24 hr 10/04/25 10/04/25 10/04/25 16:15 16:45 16:58 WBC 9.3 RBC 4.67 Hgb 13.6 Hct 42.1 MCV 90.1 MCH 29.1 MCHC 32.3 RDW Std Deviation 41.9 RDW Coeff of Dar 12.7 Plt Count 354 MPV 9.6 Immature Gran % (Auto) 0.300 Neut % (Auto) 66.3 Lymph % (Auto) 22.5 [place] % (Auto) 7.0 Eos % (Auto) 3.3 Baso % (Auto) 0.6 Absolute Neuts (auto) 6.2 Absolute Lymphs (auto) 2.09 Nucleated RBC % 0 Sodium 141 Potassium 4.2 Chloride 105 Carbon Dioxide 25.6 Anion Gap 11 BUN 16 Creatinine 0.97 Estim Creat Clear Calc 108.78 Est GFR (MDRD) Non-Af 75 BUN/Creatinine Ratio 16.3 Glucose 123 H Lactic Acid < 1.0 Calcium 9.2 Total Bilirubin 0.43 AST 25 ALT 18 Alkaline Phosphatase 72 Total Protein 6.4 Albumin 4.0 Globulin 2.4 Albumin/Globulin Ratio 1.6 Lipase 75 Urine Color Straw Urine Clarity Clear Urine pH 6.0 Ur Specific [place] 1.020 Urine Protein 15 H Urine Glucose (UA) Normal Urine Ketones Negative Urine Occult Blood Negative Urine Nitrite Negative Urine Bilirubin Negative Urine Urobilinogen Normal Ur Leukocyte Esterase Negative Urine RBC 0 SEEN Urine WBC 0 SEEN Ur Squamous Epith Cells 0-5 SEEN Urine Bacteria 0 SEEN Urine Mucus 0 SEEN Radiography Diagnostic Testing: Clinical Impression(s) from Imaging Studies Abdomen/Pelvis CT 10/04/25 17:30 IMPRESSION: No acute abnormality Reading Location: [facility] Discharge Plan Triage Chief Complaint: GI Bleed ED Provider: Cosmo Barragan Dx/Rx/DC Orders Prescriptions: No Action metformin 1,000 mg Tablet 1,000 mg PO DAILY metoprolol succinate 100 mg Capsule,Sprinkle,Er 24hr 100 mg PO DAILY Mounjaro 12.5 mg/0.5 mL pen injector 2.5 mg SUBCUT QWEEK Patient Comments: inject 1 dose subcutaneously ONCE A WEEK, mondays Primary Care Provider: FELA GAN MD Referrals: Care Physician,No Primary [Non-Staff, Medical] Print Language: Z[place]ian
[2025-10-04 16:44] LABS: Hematocrit 42.1 % (37-47); Hemoglobin 13.6 g/dL (12.0-15.0); Immature Granulocytes Count 0.030 X10^3/uL (0.0-0.0); Mean Corp Hgb Conc 32.3 g/dL (32-36); Mean Corpuscular Volume 90.1 fL (81-99); Mean Platelet Vol. 9.6 fl (6.2-12.0); NRBC Flagged by Analyzer 0 % (0-5); Platelet Count 354 K/mm3 (150-450); RBC Distribution Width CV 12.7 % (11.6-14.6); RBC Distribution Width SD 41.9 fl (35.1-43.9); Red Blood Count 4.67 M/mm3 (4.2-5.4); White Blood Count 9.3 K/mm3 (4.4-11.0)
--- NOTE | 2025-10-04 16:50 | ED.RN ---
Pt refusing fentanyl d/t nervousness around opiates. Provider notified, requesting tylenol instead. dose wasted with VIVIENNE Peres
[2025-10-04] MEDS: 0.9% Normal Saline (1000mL) 1,000 ML 999 ML IV (16:53)
[2025-10-04 16:57] LABS: Mucous, Urine 0 SEEN /hpf (<or=2+); Red Blood Cells-Urine 0 SEEN /hpf (0-5)
[2025-10-04 16:59] LABS: Color, Urine Straw (Yellow); Glucose, Dipstick Normal (Normal); Ketone-Dipstick Negative (Negative); Leukocyte Esterase-Dipstick Negative /ul (Negative); Nitrite-Dipstick Negative (Negative); Occult Blood-Urine Negative /ul (Negative); Protein-Dipstick 15 mg/dl (Negative); Specific Gravity, Urine 1.020 (1.002-1.030); Urine Bilirubin Dipstick Negative (Negative)
[2025-10-04 17:03] LABS: Squamous Epithelial Cells - UA 0-5 SEEN /hpf (5-10)
--- NOTE | 2025-10-04 17:03 | CM.ED ---
Social Work Date of referral: 10/04/25 Reason for referral: No Primary Care Physician (PCP) not on file. Referred by: Social Work Identification Patient provided consent to social work visit. Patient stated she does have a PCP whom patient identified as Dheeraj Laboy. [employer] will provide information to registration so oliva's medical record can be updated. Marisol Alas, PEDIATRIC DENTIST, OUTDOOR PURSUITS INSTRUCTOR
[2025-10-04 17:08] LABS: AST(SGOT) 25 U/L (<=31); Alanine Aminotransfer ALT/SGPT 18 U/L (<=34); Albumin, Serum 4.0 g/dL (3.5-5.0); Alkaline Phosphatase 72 U/L (35-104); Anion Gap 11 (5-15); BUN 16 mg/dL (4-19); BUN/Creat Ratio 16.3 RATIO (10-20); Calcium,Total 9.2 mg/dL (7.6-11.0); Carbon Dioxide 25.6 mmol/L (21.0-32.0); Chloride 105 mmol/L (98-108); Estimated Creatinine Clearance 108.78 ml/min (50-250); Globulin 2.4 g/dL (2.2-4.2); Glucose 123 mg/dL (70-99); Lipase 75 U/L (13-75); Potassium 4.2 mmol/L (3.3-5.1)
--- NOTE | 2025-10-04 17:30 | CT_ITS ---
PROCEDURE: ABDOMEN/PELVIS W IV CONT ONLY 10/04/2025 REASON FOR EXAM: GI BLEED TECHNIQUE: Procedure Code: [id number] Modality: CT Procedure: ABDOMEN/PELVIS W IV CONT ONLY Coronal and Sagittal reconstruction series were provided. CONTRAST: Isovue 370 VOLUME: 100 mL One or more dose reduction techniques were used (e.g., Automated exposure control, adjustment of the mA and/or kV according to patient size, use of iterative reconstruction technique. RADIATION DOSE SUMMARY: CTDlvol: 37 mGy DLP: 1412 mGycm FINDINGS: Normal lumbar vertebral body height and alignment. Lung bases demonstrate no consolidation or edema. Liver and portal vein are normal. Gallbladder contracted. Normal spleen. Pancreas unremarkable. Negative for renal mass, calculus or hydronephrosis. The stomach is mildly distended with food or debris. There is no visible obstruction of the large bowel or the small bowel. No positive findings for diverticulitis or appendicitis. No free-fluid is detected. No wall thickening. CT/Abdomen/Pelvis W IV Cont ONLY IMPRESSION: No acute abnormality Reading [facility]
[2025-10-04 18:24] VITALS: BP 126/75; PULSE 78; RESP 17; O2SAT 100
[2025-10-04 19:56] VITALS: BP 124/79; PULSE 74; RESP 18; O2SAT 99
[2025-10-04 20:02] VITALS: BP 124/79; PULSE 74; RESP 18; TEMP 36.9; O2SAT 99
== END 2025-10-04 20:08 | disposition home or self-care (01) ==
PROVIDERS: Emergency Provider Surgery; Visit Provider Surgery
DX: K92.2 Gastrointestinal hemorrhage, unspecified (principal); E11.9 Type 2 diabetes mellitus without complications; Z90.710 Acquired absence of both cervix and uterus; I10 Essential (primary) hypertension; R10.9 Unspecified abdominal pain; E78.2 Mixed hyperlipidemia; Z79.84 Long term (current) use of oral hypoglycemic drugs; Z79.899 Other long term (current) drug therapy; Z79.85 Long-term (current) use of injectable non-insulin antidiabetic drugs
CPT/HCPCS: 74177; 80053; 81001; 82274; 83605; 83690; 85025; 96361; 96374; 99284; Q9967; A4216; J2405